=== PATIENT | female | born 1970 | race Two or more races ===

== ENCOUNTER 2020-10-17 22:29 | Emergency (ER) | payer MEDICAID, SELFPAY ==
--- NOTE | ~2020-10-17 | US_ITS ---
EXAMINATION: US VENOUS ULTRASOUND WITH DOPPLER LOWER EXTREMITY, BILATERAL CLINICAL INFORMATION: Swelling, rule out DVT COMPARISON: None TECHNIQUE: Ultrasound of the deep veins is performed from the hip to the calf with compression sonography and color and pulse Doppler assessment. Spectral analysis with color-flow imaging is performed. FINDINGS: RIGHT: There is normal venous compression and respiratory variation and augmented flow. The visualized common femoral vein, superficial femoral vein, profunda femoral vein, popliteal vein, and the trifurcation region shows no evidence of deep venous thrombosis. There is no significant popliteal fossa cyst. LEFT: The the left common femoral vein is partially compressible, though there is a region within the vein which does not demonstrate flow; this could reflect sequelae of partial chronic thrombosis. Visualized superficial femoral vein, profunda femoral vein, popliteal vein, and the trifurcation region shows no evidence of deep venous thrombosis. There is no significant popliteal fossa cyst. 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 No DVT demonstrated in the right lower extremity. This critical result was discussed with Dr. Tay on 10/18/2020 1:50 AM, and it was ascertained that the content and urgency of the report was understood at the time of direct communication.
--- NOTE | ~2020-10-17 | CT_ITS ---
EXAMINATION: CT ABDOMEN AND PELVIS WITHOUT CONTRAST CLINICAL INFORMATION: Lower abdominal pain COMPARISON: None TECHNIQUE: Multidetector volumetric imaging was performed from the superior aspect of the liver through the pubic symphysis. Sagittal and coronal reformatted images were obtained on the technologist's workstation. This CT examination was performed using dose optimization techniques as appropriate, variously including the following: *Automated exposure control *Adjustment of mA and/or kV according to patient size (this includes techniques or standardized protocols for targeted exams where dose is matched to indication/reason for exam; i.e. extremities or head) *Use of iterative reconstruction technique DLP: 926 mGy-cm FINDINGS: LUNG BASES: The visualized lung bases are unremarkable. LIVER, GALLBLADDER, AND BILIARY TREE: The liver is normal in size and shape but demonstrates decreased attenuation when compared with the spleen consistent with hepatic steatosis.. No focal hepatic lesion or biliary ductal dilatation is present. The gallbladder is unremarkable with no evidence of radiopaque gallstones, gallbladder wall thickening, or obvious pericholecystic inflammatory changes. PANCREAS: Unremarkable. SPLEEN: Unremarkable. ADRENAL GLANDS: Unremarkable. RETROPERITONEUM/PERITONEUM: There is a ovoid/oblong shaped retroperitoneal subdiaphragmatic mass present on the left which displaces the left kidney forward measuring 7.3 x 4.3 x 9.5 cm. No air is present in this collection. Suture material appears to be present in the left flank extending toward this region. No free intraperitoneal fluid is present. KIDNEYS AND URETERS: The kidneys are normal in size, shape, and attenuation. No hydronephrosis, hydroureter, or calculi seen. No perinephric stranding. BLADDER: Unremarkable. GASTROINTESTINAL TRACT: The small and large bowel are unremarkable. The appendix is unremarkable. ABDOMINAL WALL: There is been a repair of a ventral hernia but there is still diastases and anterior bulging. No inguinal hernias are seen. LYMPH NODES: No retroperitoneal lymphadenopathy is present. VASCULAR: Unremarkable. PELVIC VISCERA: An anteverted uterus is present. An abnormal adnexal mass or free fluid is not present. OSSEOUS STRUCTURES: Degenerative changes present predominantly at L5-S1. Old sacral fracture may be present. Sclerotic changes at the sacroiliac joints are present. Mild compression fracture of L4 is present. CT/CT abdomen pelvis wo con IMPRESSION: 1. 7.3 x 4.3 x 9.5 cm left retroperitoneal collection as described above. This is of uncertain significance. Differential diagnosis would include an abscess, a chronic seroma, resolving hematoma among other possibilities. 2. Incidental note made of hepatic steatosis, ventral hernia and degenerative changes present in the spine with compression fracture L4 This critical result was discussed with Dr. Tay at 12:30 AM on 10/18/2020 and it was ascertained that the content and urgency of the report was understood at the time of direct communication.
[2020-10-17 22:52] VITALS: BP 107/65; PULSE 89; RESP 18; TEMP 36.9; O2SAT 99; BMI 46.1
--- NOTE | 2020-10-17 23:20 | ECG_ITS ---
Test Reason : LEG SWELLING Blood Pressure : / mmHG Vent. Rate : 080 BPM Atrial Rate : 080 BPM P-R Int : 170 ms QRS Dur : 084 ms QT Int : 432 ms P-R-T Axes : 059 075 051 degrees QTc Int : 498 ms Normal sinus rhythm Prolonged QT Abnormal ECG No previous ECGs available Referred By: Alana Tay Electronically Signed By:EVELIA SESAY MD
--- NOTE | 2020-10-17 23:21 | ED.GENADULT ---
HPI - General Adult General Chief complaint: Extremity Injury, Lower Stated complaint: swollen feet/abd pain Time Seen by Provider: 10/17/20 22:57 Source: patient and family Mode of arrival: ambulatory Limitations: no limitations History of Present Illness MD complaint: LE pain, lower abdominal discomfort Onset (ago): year(s) (chronic LE edema but noted pain for the last few days) Location: abdomen, left, right and lower extremity Radiation: non-radiation Severity: moderate Quality: aching Pain Consistency: constant Relieving factors: none Exacerbating factors: movement Associated symptoms: other (lower abdominal discomfort) Treatments prior to arrival: none Related Data Allergies Allergy/AdvReac Type Severity Reaction Status Date / Time No Known Allergies Allergy Unverified 12/13/19 16:28 [No Known Allergies*] Review of Systems Review of Systems: Constitutional : No Weight loss, No Fever, No Chills, No Fatigue, No Malaise ENT/Mouth : No sore throat, No Rhinorrhea Eyes: No Eye Pain, No Swelling, No Redness Cardiovascular : No Chest Pain, No SOB, No Dyspnea on Exertion, No Orthopnea, pos Edema, No Palpitations Respiratory : No Cough, No Sputum, No Wheezing Gastrointestinal : No Nausea, No Vomiting, No Diarrhea, No Constipation, pos abdominal Pain, No Hematochezia, No Melena Genitourinary : No Dysuria, No Urinary Frequency, No Hematuria, Musculoskeletal : pos joint pain, No Myalgias, No Joint Swelling Skin : No Skin Lesions, No rash Neuro : No Weakness, No Numbness, No Dizziness, No Headache Psych : No Anxiety/Panic, No Depression Heme/Lymph: No Bruising, No Bleeding,No Lymphadenopathy Endocrine : No Polyuria, No Polydipsia All other systems reviewed and are negative [facility] Past Medical History Attestation statement: The following information was validated with the patient. Medical History (Updated 10/18/20 @ 01:33 by Alana Tay DO) Cardiac arrest Cervical cancer DVT (deep venous thrombosis) Lymphedema Social History Social History (Updated 10/17/20 @ 23:28 by Alana Tay DO) Alcohol intake: never Patient Tobacco Use Status: Never used Tobacco Use of substances other than those prescribed or required for medical reasons: No Advance Directives: No Advance Directives Information Provided: No Patient : No Physical Exam Vital Signs: Vital Signs: Last Vital Signs Temp 98.5 F 10/17/20 22:52 Pulse 89 10/17/20 22:52 Resp 18 10/17/20 22:52 BP 107/65 10/17/20 22:52 Pulse Ox 99 10/17/20 22:52 Body Mass Index 46.1 Appearance: Alert. Oriented X3. No acute distress. Eyes: Pupils equal, round and reactive to light. ENT: Pharynx normal. Neck: Normal inspection. Neck supple. CVS: Normal heart rate and rhythm. Pulses normal. Respiratory: No respiratory distress. Breath sounds normal. Abdomen: Soft and very mild suprapubic ttp no rebound or guarding Skin: Skin warm and dry. Normal skin color. Normal skin turgor. Extremities: pitting 1 to 2+ lower extremity edema. Chronic lymphedema - no rash noted Neuro: Oriented X 3. No motor deficit. No sensory deficit. Course Course Course Narrative: retroperitoneal collection on left side ?hematoma vs area of surgery in the past, repeat attempt to get records from [facility] [place] patient has no complaints of pain in this region has no WBC count, H/H is stable no left flank pain doubt abscess, H/H is stable on coumadin with pain x 3 days doubt active hematoma call from Radiology: L CFV - suspicion for partial thrombosis could be chronic already anticoagulated other than pain her swelling is not new - suspect chronic clot Medical Decision Making MDM Narrative Medical decision making narrative: 50 yo female with hx of chronic lymphedema, DVT with what sounds like resulted in a cardiac arrest with prolonged hospital stay, GIB, on coumadin comes in with c/o LE pain nervous about DVT, lower abdominal pain - at this time labs, US to r/o DVT, CT scan for mass, dispo per results and findings Lab Data Result diagrams: 10/18/20 00:22 10/18/20 00:22 Labs: Lab Results 10/18/20 10/18/20 10/18/20 Range/Units 00:22 00:22 00:22 WBC 5.3 (4.8-10.8) X10*3/uL RBC 4.62 (4.20-5.50) X10*6/uL Hgb 12.6 (12.0-16.0) g/dl Hct 39.9 (37-47) % MCV 86.4 (80-98) fL MCH 27.3 (27.0-33.0) pg MCHC 31.6 (31.0-35.0) g/dl RDW 15.0 (11.0-16.0) % Plt Count 231 (160-400) X10*3/uL MPV 9.7 (9.4-12.3) fL Immature Gran % (Auto) 0.2 (0.0-0.4) % Neut % (Auto) 70.9 (45-73) % Lymph % (Auto) 21.9 (20-40) % [place] % (Auto) 5.5 (2-11) % Eos % (Auto) 1.1 (0-4) % Baso % (Auto) 0.4 (0-2) % Lymph # (Auto) 1.2 (1.2-4.9) X10*3/uL [place] # (Auto) 0.3 (0.1-1.2) X10*3/uL Eos # (Auto) 0.1 (0.0-0.4) X10*3/uL Baso # (Auto) 0.0 (0.0-0.2) X10*3/uL Abs Immat Gran (auto) 0.01 (0.00-0.03) X10*3/uL Absolute Neuts (auto) 3.8 (2.0-8.3) X10*3/uL Absolute Nucleated RBC 0.000 (0.0-0.012) X10*3/uL Nucleated RBC % (auto) 0.0 (0.0-0.2) /100WBC PT (9.9-13.0) SEC INR (0.9-1.1) APTT (24.1-38.0) SEC Sodium 139 (135-145) mmol/L Potassium 3.3 (3.3-5.1) mmol/L Chloride 100 (96-108) mmol/L Carbon Dioxide 32 H (22-29) mmol/L Anion Gap 10 L (12-20) BUN 14 (9-16) mg/dL Creatinine 0.85 (0.5-1.4) mg/dL Estim Creat Clear Calc 99.5 Estimated GFR > 60 Random Glucose 127 H (60-115) mg/dL Calcium 9.0 (8.4-10.2) mg/dL Magnesium (1.6-2.6) mg/dL Total Bilirubin (0.0-1.0) mg/dL Direct Bilirubin (0.0-0.5) mg/dL AST (5-31) U/L ALT (0-31) U/L Alkaline Phosphatase (39-117) U/L Troponin I High Sens (<3.5-17.0) ng/L B-Natriuretic Peptide 152 H (<100) pg/mL Total Protein (6.5-8.0) g/dL Albumin (3.5-5.0) g/dL Lipase (8-78) U/L 10/18/20 10/18/20 10/18/20 Range/Units 00:22 00:22 00:22 WBC (4.8-10.8) X10*3/uL RBC (4.20-5.50) X10*6/uL Hgb (12.0-16.0) g/dl Hct (37-47) % MCV (80-98) fL MCH (27.0-33.0) pg MCHC (31.0-35.0) g/dl RDW (11.0-16.0) % Plt Count (160-400) X10*3/uL MPV (9.4-12.3) fL Immature Gran % (Auto) (0.0-0.4) % Neut % (Auto) (45-73) % Lymph % (Auto) (20-40) % [place] % (Auto) (2-11) % Eos % (Auto) (0-4) % Baso % (Auto) (0-2) % Lymph # (Auto) (1.2-4.9) X10*3/uL [place] # (Auto) (0.1-1.2) X10*3/uL Eos # (Auto) (0.0-0.4) X10*3/uL Baso # (Auto) (0.0-0.2) X10*3/uL Abs Immat Gran (auto) (0.00-0.03) X10*3/uL Absolute Neuts (auto) (2.0-8.3) X10*3/uL Absolute Nucleated RBC (0.0-0.012) X10*3/uL Nucleated RBC % (auto) (0.0-0.2) /100WBC PT 29.3 H (9.9-13.0) SEC INR 2.5 H (0.9-1.1) APTT 44.7 H (24.1-38.0) SEC Sodium (135-145) mmol/L Potassium (3.3-5.1) mmol/L Chloride (96-108) mmol/L Carbon Dioxide (22-29) mmol/L Anion Gap (12-20) BUN (9-16) mg/dL Creatinine (0.5-1.4) mg/dL Estim Creat Clear Calc Estimated GFR Random Glucose (60-115) mg/dL Calcium (8.4-10.2) mg/dL Magnesium 2.0 (1.6-2.6) mg/dL Total Bilirubin 0.4 (0.0-1.0) mg/dL Direct Bilirubin 0.2 (0.0-0.5) mg/dL AST 13 (5-31) U/L ALT 8 (0-31) U/L Alkaline Phosphatase 105 (39-117) U/L Troponin I High Sens 4.0 (<3.5-17.0) ng/L B-Natriuretic Peptide (<100) pg/mL Total Protein 6.2 L (6.5-8.0) g/dL Albumin 3.7 (3.5-5.0) g/dL Lipase 25 (8-78) U/L ECG Data Attestation: I personally reviewed and interpreted this ECG as follows: Interpretation: Rate: 80 Rhythm: NSR [place]: normal Normal P waves. Normal MARY. Normal QRS complex. ST T wave : nonspecific, no ANGELA qTC: prolonged prior studies: no acute ischemia The study has been interpreted contemporaneously by me. . Discharge Plan Discharge Clinical Impression: Lymphedema, Chronic leg pain Patient Disposition: Home, Self-Care Instructions: Lymphedema (ED) Additional Instructions: return to ED for any worsening symptoms or concerns 1. 7.3 x 4.3 x 9.5 cm left retroperitoneal (near left kidney) collection as described above. This is of uncertain significance. Differential diagnosis would include an abscess, a chronic seroma, resolving hematoma among other possibilities. unlikely to be abscess or area of bleeding given normal labs and lack of pain at this site. Please call primary care doctor on Tuesday for follow up. INR 2.5 there is a chronic clot in the left upper leg but no new clots, nothing in the right leg Referrals: Physician,Unknown [Primary Care Provider] - 2 days (Tuesday)
[2020-10-18 00:33] LABS: Basophils Percent Auto 0.4 % (0-2); Eosinophils Absolute Auto 0.1 X10*3/uL (0.0-0.4); Eosinophils Percent Auto 1.1 % (0-4); Hematocrit 39.9 % (37-47); Hemoglobin 12.6 g/dl (12.0-16.0); Imm Gran Abs Auto 0.01 X10*3/uL (0.00-0.03); Imm Gran Pct Auto 0.2 % (0.0-0.4); Lymphocytes Absolute Auto 1.2 X10*3/uL (1.2-4.9); Lymphocytes Percent Auto 21.9 % (20-40); MANUAL DIFF FLAG NO; Mean Corpuscular HGB Conc 31.6 g/dl (31.0-35.0); Mean Corpuscular Hemoglobin 27.3 pg (27.0-33.0); Mean Corpuscular Volume 86.4 fL (80-98); Mean Platelet Volume 9.7 fL (9.4-12.3); Monocytes Absolute Auto 0.3 X10*3/uL (0.1-1.2); Monocytes Percent Auto 5.5 % (2-11); Neutrophils Absolute Auto 3.8 X10*3/uL (2.0-8.3); Neutrophils Percent Auto 70.9 % (45-73); Platelet Count 231 X10*3/uL (160-400); Red Blood Count 4.62 X10*6/uL (4.20-5.50); White Blood Count 5.3 X10*3/uL (4.8-10.8)
[2020-10-18 00:39] LABS: INTERNATIONAL NORM RATIO 2.5 (0.9-1.1); Prothrombin Time 29.3 SEC (9.9-13.0)
[2020-10-18 00:42] LABS: Partial Thromboplastin Time 44.7 SEC (24.1-38.0)
[2020-10-18 00:57] LABS: B Type Natriuretic Peptide 152 pg/mL (<100)
[2020-10-18 00:58] LABS: Alanine Aminotransferase 8 U/L (0-31); Albumin Level 3.7 g/dL (3.5-5.0); Alkaline Phosphatase 105 U/L (39-117); Anion Gap 10 (12-20); Aspartate Amino Transferase 13 U/L (5-31); Bilirubin Direct 0.2 mg/dL (0.0-0.5); Bilirubin Total 0.4 mg/dL (0.0-1.0); Blood Urea Nitrogen 14 mg/dL (9-16); Carbon Dioxide 32 mmol/L (22-29); Chloride 100 mmol/L (96-108); Creatinine Clr Calc Pharmacy 99.5; Estimated Glomerular Filt Rate > 60; Glucose Random 127 mg/dL (60-115); Lipase 25 U/L (8-78); Potassium 3.3 mmol/L (3.3-5.1); Sodium 139 mmol/L (135-145); Total Protein 6.2 g/dL (6.5-8.0)
[2020-10-18 02:00] VITALS: BP 95/67; PULSE 67; RESP 15; TEMP 36.9; O2SAT 99
[2020-10-18 02:07] LABS: Glucose Urine UA NEG (NEG); Leukocyte Esterase Urine 1+ (NEG); Nitrite Urine NEG (NEG); UACC Culture Trigger YES; Urine Blood NEG (NEG); Urine Ketones NEG (NEG); Urine Protein NEG (NEG-TRACE)
[2020-10-18 02:08] LABS: Appearance Urine CLEAR; Color Urine YELLOW
[2020-10-18 02:16] LABS: Bacteria Urine 1+ /LPF; RBC Urine 0-2 /HPF (0); Squamous Epithelial Cell Urine 2+ /LPF
[2020-10-18] MEDS: Nitrofurantoin Monohyd/M-Cryst 100 MG CAPSULE PO (03:18)
== END 2020-10-18 03:25 | disposition home or self-care (01) ==
PROVIDERS: Emergency Provider Emergency Medicine
DX: M79.604 Pain in right leg (principal); R60.0 Localized edema; R10.9 Unspecified abdominal pain; R59.1 Generalized enlarged lymph nodes; R06.02 Shortness of breath; Z79.899 Other long term (current) drug therapy
CPT/HCPCS: 36415; 74176; 80048; 80076; 81001; 81003; 83690; 83735; 83880; 84484; 85025; 85610; 85730; 87086; 87147; 93005; 93970; 99284

== ENCOUNTER 2020-10-31 20:36 | Emergency (ER) | payer MEDICAID, SELFPAY ==
--- NOTE | ~2020-10-31 | XR_ITS ---
EXAMINATION: XR KNEE, LEFT CLINICAL INFORMATION: Fall. COMPARISON: X-ray of the left knee March 2019 TECHNIQUE: Four views of the left knee. FINDINGS: There is osteoarthritis involving all compartments with marginal osteophytes and joint space narrowing. Probable loose body in the anterior recess. Small effusion XR/XR knee LT 2V IMPRESSION: Osteoarthritis of the left knee unchanged. Probable loose body No fracture or acute abnormality. Small effusion
--- NOTE | ~2020-10-31 | XR_ITS ---
EXAMINATION: Pelvis left hip and pelvis CLINICAL INFORMATION: Fall COMPARISON: CT scan of the abdomen and pelvis September 2020 TECHNIQUE: Two views of the left hip. AP view of the pelvis FINDINGS: Left hip: The femoral acetabular joint space is normal. There is no fracture or bone lesion. Surrounding soft tissues are normal. Pelvis: Postsurgical changes in the lower abdomen. Bones joints and soft tissues of the pelvis otherwise normal. Spondylosis of the partially visualized lumbar sacral spine XR/XR hip LT min 2V IMPRESSION: Normal left hip. No acute abnormality the pelvis no fracture
[2020-10-31 21:53] VITALS: BP 118/61; PULSE 57; RESP 16; TEMP 36.6; O2SAT 100; BMI 43.7
--- NOTE | 2020-10-31 23:14 | ED_ITS ---
HPI - Fall General Chief Complaint: Fall Stated Complaint: pain in legs Time Seen by Provider: 10/31/20 22:59 Source: patient Mode of arrival: wheelchair Limitations: no limitations History of Present Illness HPI Narrative: Patient comes to emergency room complaining of left knee pain and left hip pain. Patient states 2 days ago she fell of the bed while she was trying to get up to answer the door. Patient did not hit her head, did not lose consciousness. Patient is on Coumadin. Patient has been able to bear weight, but hurts doing so. Otherwise she has no other injuries. Related Data Previous Rx's Medication Instructions Recorded nitrofurantoin 100 mg PO Q12H 7 Days #14 cap 10/18/20 monohydrate/macrocrystals 100 mg capsule (Macrobid) tramadol 50 mg tablet 50 mg PO TID PRN #10 tab 10/31/20 Allergies Allergy/AdvReac Type Severity Reaction Status Date / Time No Known Allergies Allergy Verified 10/31/20 22:01 [No Known Allergies*] Review of Systems Review of Systems: Constitutional : No Weight loss, No Fever, No Chills, No Night Sweats, No Fatigue, No Malaise ENT/Mouth : No Hearing loss, No Ear Pain, No Nasal Congestion, No Sinus Pain, No Hoarseness, No sore throat, No Rhinorrhea, No Swallowing Difficulty Eyes: No Eye Pain, No Swelling, No Redness, No Foreign Body, No Discharge, No Vision Changes Cardiovascular : No Chest Pain, No SOB, No Dyspnea on Exertion, No Orthopnea, No Edema, No Palpitations Respiratory : No Cough, No Sputum, No Wheezing, No Smoke Exposure, No Dyspnea Gastrointestinal : No Nausea, No Vomiting, No Diarrhea, No Constipation, No abdominal Pain, No Hematochezia, No Melena Genitourinary : no irregular bleeding, No Dysuria, No Urinary Frequency, No Hematuria, No Urinary Incontinence, No Urgency, No Flank Pain, No Urinary Flow Changes, No Hesitancy Musculoskeletal : Complaining of left hip pain and left knee pain Skin : No Skin Lesions, No rash Neuro : No Weakness, No Numbness, No Paresthesias, No Loss of Consciousness, No Dizziness, No Headache Psych : No Anxiety/Panic, No Depression, No SI/HI/AH/VH, No Social Issues, Heme/Lymph: No Bruising, No Bleeding,No Lymphadenopathy Endocrine : No Polyuria, No Polydipsia, No Temperature Intolerance [facility] Past Medical History Medical History Cardiac arrest Cervical cancer DVT (deep venous thrombosis) Lymphedema Social History Social History (Updated 10/17/20 @ 23:28 by Alana Tay DO) Alcohol intake: never Patient Tobacco Use Status: Never used Tobacco Advance Directives: No Physical Exam Vital Signs: Vital Signs: Last Vital Signs Temp 97.8 F 10/31/20 21:53 Pulse 57 10/31/20 21:53 Resp 16 10/31/20 21:53 BP 118/61 10/31/20 21:53 Pulse Ox 100 10/31/20 21:53 Body Mass Index 43.7 Const: Other: Appearance: Alert. Oriented X3. No acute distress. Eyes: Pupils equal, round and reactive to light. ENT: Pharynx normal. Neck: Normal inspection. Neck supple. No lymph nodes noted. No crepitus CVS: Normal heart rate and rhythm. Pulses normal. Normal S1 and S2 Respiratory: No respiratory distress. Breath sounds normal. No Wheezing. No rales Abdomen: Soft and nontender. No rigidity. No distention. good BS x4 Skin: Skin warm and dry. Normal skin color. Normal skin turgor. Extremities: Chronic bilateral lymphedema, patient able to flex and extend both knees and hips, no obvious effusion in the left knee, no erythema Neuro: Oriented X 3. No motor deficit. No sensory deficit. Moving all extermities. No slurred speech. Course Course Course Narrative: I discussed the physical exam and x-rays with the patient and her son. Patient likely has a contusion. Patient instructed to follow-up with her primary care physician. Patient was offered crutches, patient declined. Patient accepted 1 dose of tramadol. Discussed with the patient and take ibuprofen/NSAID. Only Tylenol and tramadol MDM - Fall Imaging Data Hip x-ray: Radiologist's impression: There is osteoarthritis involving all compartments with marginal osteophytes and joint space narrowing. Probable loose body in the anterior recess. Small effusion XR/XR knee LT 2V IMPRESSION: Osteoarthritis of the left knee unchanged. Probable loose body ? No fracture or acute abnormality. Small effusion Left knee x-ray: Radiologist's impression: COMPARISON: CT scan of the abdomen and pelvis September 2020 TECHNIQUE: Two views of the left hip. AP view of the pelvis FINDINGS: Left hip: The femoral acetabular joint space is normal. There is no fracture or bone lesion. Surrounding soft tissues are normal. Pelvis: Postsurgical changes in the lower abdomen. Bones joints and soft tissues of the pelvis otherwise normal. Spondylosis of the partially visualized lumbar sacral spine XR/XR hip LT min 2V IMPRESSION: Normal left hip. ? No acute abnormality the pelvis no fracture Discharge Plan Discharge Clinical Impression: Multiple contusions Patient Disposition: Home, Self-Care Instructions: Knee Pain (ED), Hip Contusion (ED) Additional Instructions: Please follow-up with your primary care physician tomorrow. If you have any worsening or new symptoms, please return to the emergency room or call 911 Prescriptions: New tramadol 50 mg tablet 50 mg PO TID PRN (Reason: pain) Qty: 10 RF: 0 No Action nitrofurantoin monohyd/m-cryst [Macrobid] 100 mg capsule 100 mg PO Q12H 7 Days Qty: 14 RF: 0
[2020-10-31] MEDS: traMADoL HCL 50 MG TABLET PO (23:58)
== END 2020-11-01 | disposition home or self-care (01) ==
PROVIDERS: Emergency Provider Emergency Medicine; PCP Pediatrics
DX: S70.02XA Contusion of left hip, initial encounter (principal); M25.562 Pain in left knee; Z86.718 Personal history of other venous thrombosis and embolism; Z79.01 Long term (current) use of anticoagulants; W06.XXXA Fall from bed, initial encounter; Y93.9 Activity, unspecified; Y92.9 Unspecified place or not applicable; Y99.9 Unspecified external cause status
CPT/HCPCS: 73502; 73560; 99283

== ENCOUNTER 2021-08-30 17:16 | Emergency (ER) | payer MEDICAID, SELFPAY ==
--- NOTE | 2021-08-30 | ECG_ITS ---
Test Reason : CP Blood Pressure : / mmHG Vent. Rate : 061 BPM Atrial Rate : 061 BPM P-R Int : 176 ms QRS Dur : 090 ms QT Int : 484 ms P-R-T Axes : 050 076 049 degrees QTc Int : 487 ms Normal sinus rhythm Cannot rule out Anterior infarct , age undetermined Abnormal ECG When compared with ECG of 17-OCT-2020 23:58, No significant change was found Referred By: Generic ED Physician Electronically Signed By:MARS MATHIAS
--- NOTE | ~2021-08-30 | US_ITS ---
EXAMINATION: US VENOUS ULTRASOUND WITH DOPPLER LOWER EXTREMITY, LEFT CLINICAL INFORMATION: Left calf pain COMPARISON: 10/18/2020 TECHNIQUE: Ultrasound of the deep veins is performed from the hip to the calf with compression sonography and color and pulse Doppler assessment. Spectral analysis with color-flow imaging is performed. FINDINGS: There is noncompressible mural thrombus which is not flow limiting in the common femoral vein, similar in appearance to 10/18/2020 consistent with chronic disease. The deep venous system is otherwise normal with normal venous compression and respiratory variation and augmented flow. The visualized superficial femoral vein, profunda femoral vein, popliteal vein, and the trifurcation region shows no evidence of deep venous thrombosis. The peroneal veins were not seen although they were seen at the time of the prior study. This is probably secondary to the patient's body habitus. There is no significant popliteal fossa cyst. 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 No evidence of acute DVT..
[2021-08-30 17:21] VITALS: BP 116/62; PULSE 70; RESP 18; TEMP 36.8; O2SAT 99; BMI 45.3
--- NOTE | 2021-08-30 17:41 | ED_ITS ---
HPI - Chest Pain General Chief Complaint: Chest Pain Stated Complaint: chest pain, swelling Time Seen by Provider: 08/30/21 17:41 Source: patient and family Mode of arrival: ambulatory Limitations: no limitations History of Present Illness HPI narrative: Patient has history of chronic lymphedema comes here for increased leg swelling specially on the left side for last few weeks also with complaining of chest pressure feeling for last 2 weeks off and on lasting for few minutes patient does have history of DVT in left leg and is on Coumadin for last 1 year denies any shortness of breath no fever no chills Related Data Previous Rx's Medication Instructions Recorded nitrofurantoin 100 mg PO Q12H 7 Days #14 cap 10/18/20 monohydrate/macrocrystals 100 mg capsule (Macrobid) tramadol 50 mg tablet 50 mg PO TID PRN #10 tab 10/31/20 cephalexin 500 mg capsule 500 mg PO QID 10 Days #40 cap 08/30/21 doxycycline hyclate 100 mg tablet 100 mg PO BID #20 tab 08/30/21 Allergies Allergy/AdvReac Type Severity Reaction Status Date / Time No Known Allergies Allergy Verified 08/30/21 17:21 [No Known Allergies*] Review of Systems Review of Systems: Yes all other systems are reviewed and are negative PMFSH Past Medical History Medical History Cardiac arrest Cervical cancer DVT (deep venous thrombosis) Lymphedema Social History Social History Alcohol intake: never Patient Tobacco Use Status: Never used Tobacco Advance Directives: No Advance Directives Information Provided: No Physical Exam Vital Signs: Vital Signs: Last Vital Signs Temp 98.2 F 08/30/21 17:21 Pulse 54 08/30/21 21:31 Resp 22 H 08/30/21 21:31 BP 108/57 L 08/30/21 21:31 Pulse Ox 99 08/30/21 21:31 BMI result Body Mass Index 45.3 Appearance: Alert. Oriented X3. No acute distress. Eyes: No pallor ENT: Pharynx normal. Oral Mucosa moist Neck: Normal inspection. Neck supple. CVS: Normal heart rate and rhythm. Pulses normal. Respiratory: No respiratory distress. Equal air entry bilateral, no wheezing/rales/rhonchi Abdomen: Soft and nontender. Bowel sounds are present, no mass palpable, no CVA tenderness Skin: Skin warm and dry. Normal skin color. Normal skin turgor. Extremities: Nonpitting lymphedema bilateral leg left leg with warmth and slight redness no calf tenderness Neuro: Oriented X 3. No motor deficit. MDM - Chest Pain MDM Narrative Medical decision making narrative: Patient was slight cellulitis of left leg venous Doppler was done which was negative for any acute blood clot showed or a DVT in the left leg. Will discharge patient home on doxycycline and Keflex Lab Data Attestation: I reviewed the patient's lab results. Result diagrams: 08/30/21 18:37 08/30/21 19:51 Labs: Lab Results 08/30/21 08/30/21 08/30/21 Range/Units 18:37 19:51 19:51 WBC 4.4 L (4.8-10.8) X10*3/uL RBC 4.96 (4.20-5.50) X10*6/uL Hgb 13.8 (12.0-16.0) g/dl Hct 42.6 (37.0-47.0) % MCV 85.9 (80.0-98.0) fL MCH 27.8 (27.0-33.0) pg MCHC 32.4 (31.0-35.0) g/dl RDW 14.1 (11.0-16.0) % Plt Count 227 (160-400) X10*3/uL MPV 10.6 (9.4-12.3) fL Immature Gran % (Auto) 0.2 (0.0-0.4) % Neut % (Auto) 65.3 (45-73) % Lymph % (Auto) 27.2 (20-40) % [place] % (Auto) 5.7 (2-11) % Eos % (Auto) 1.1 (0-4) % Baso % (Auto) 0.5 (0-2) % Lymph # (Auto) 1.2 (1.2-4.9) X10*3/uL [place] # (Auto) 0.3 (0.1-1.2) X10*3/uL Eos # (Auto) 0.1 (0.0-0.4) X10*3/uL Baso # (Auto) 0.0 (0.0-0.2) X10*3/uL Abs Immat Gran (auto) 0.01 (0.00-0.03) X10*3/uL Absolute Neuts (auto) 2.9 (2.0-8.3) x10*3/uL Absolute Nucleated RBC 0.000 (0.0-0.012) X10*3/uL Nucleated RBC % (auto) 0.0 (0.0-0.2) /100WBC PT (9.9-13.0) SEC INR (0.9-1.1) Sodium 142 (135-145) mmol/L Potassium 3.8 (3.3-5.1) mmol/L Chloride 103 (96-108) mmol/L Carbon Dioxide 29 (22-29) mmol/L Anion Gap 14 (12-20) BUN 13 (9-16) mg/dL Creatinine 0.83 (0.5-1.4) mg/dL Estim Creat Clear Calc 93.4 Estimated GFR > 60 Random Glucose 83 (60-115) mg/dL Calcium 8.6 (8.4-10.2) mg/dL Total Bilirubin 0.6 (0.0-1.0) mg/dL AST 18 (5-31) U/L ALT 19 (0-31) U/L Alkaline Phosphatase 102 (39-117) U/L Troponin I High Sens < 3.5 (<3.5-17.0) ng/L Total Protein 6.5 (6.5-8.0) g/dL Albumin 4.0 (3.5-5.0) g/dL /08/16 Range/Units 19:51 WBC (4.8-10.8) X10*3/uL RBC (4.20-5.50) X10*6/uL Hgb (12.0-16.0) g/dl Hct (37.0-47.0) % MCV (80.0-98.0) fL MCH (27.0-33.0) pg MCHC (31.0-35.0) g/dl RDW (11.0-16.0) % Plt Count (160-400) X10*3/uL MPV (9.4-12.3) fL Immature Gran % (Auto) (0.0-0.4) % Neut % (Auto) (45-73) % Lymph % (Auto) (20-40) % [place] % (Auto) (2-11) % Eos % (Auto) (0-4) % Baso % (Auto) (0-2) % Lymph # (Auto) (1.2-4.9) X10*3/uL [place] # (Auto) (0.1-1.2) X10*3/uL Eos # (Auto) (0.0-0.4) X10*3/uL Baso # (Auto) (0.0-0.2) X10*3/uL Abs Immat Gran (auto) (0.00-0.03) X10*3/uL Absolute Neuts (auto) (2.0-8.3) x10*3/uL Absolute Nucleated RBC (0.0-0.012) X10*3/uL Nucleated RBC % (auto) (0.0-0.2) /100WBC PT 25.7 H (9.9-13.0) SEC INR 2.2 H (0.9-1.1) Sodium (135-145) mmol/L Potassium (3.3-5.1) mmol/L Chloride (96-108) mmol/L Carbon Dioxide (22-29) mmol/L Anion Gap (12-20) BUN (9-16) mg/dL Creatinine (0.5-1.4) mg/dL Estim Creat Clear Calc Estimated GFR Random Glucose (60-115) mg/dL Calcium (8.4-10.2) mg/dL Total Bilirubin (0.0-1.0) mg/dL AST (5-31) U/L ALT (0-31) U/L Alkaline Phosphatase (39-117) U/L Troponin I High Sens (<3.5-17.0) ng/L Total Protein (6.5-8.0) g/dL Albumin (3.5-5.0) g/dL ECG Data ECG #1: Attestation: I personally reviewed and interpreted this ECG as follows: Interpretation: Normal sinus rhythm heart rate 61 beats per minute normal interval normal axis no acute ST-T no acute ischemia Discharge Plan Discharge Clinical Impression: Cellulitis of left leg Patient Disposition: Home, Self-Care Instructions: Cellulitis (ED) Additional Instructions: Take antibiotic as prescribed Keep the leg elevated Follow with PCP if not better Prescriptions: New cephalexin 500 mg capsule 500 mg PO QID 10 Days Qty: 40 0RF doxycycline hyclate 100 mg tablet 100 mg PO BID Qty: 20 0RF No Action nitrofurantoin monohyd/m-cryst [Macrobid] 100 mg capsule 100 mg PO Q12H 7 Days Qty: 14 0RF Rx Instructions: must administer with a meal/food tramadol 50 mg tablet 50 mg PO TID PRN (Reason: pain) Qty: 10 0RF Interventions: ED Discharge Assessment Last Done: 08/30/21 23:01 Discharge Date/Time: 08/30/21 23:01 Print Language: Latvian
[2021-08-30 18:41] LABS: MANUAL DIFF FLAG NO
[2021-08-30 18:43] LABS: Basophils Percent Auto 0.5 % (0-2); Eosinophils Absolute Auto 0.1 X10*3/uL (0.0-0.4); Eosinophils Percent Auto 1.1 % (0-4); Hematocrit 42.6 % (37.0-47.0); Hemoglobin 13.8 g/dl (12.0-16.0); Imm Gran Abs Auto 0.01 X10*3/uL (0.00-0.03); Imm Gran Pct Auto 0.2 % (0.0-0.4); Lymphocytes Absolute Auto 1.2 X10*3/uL (1.2-4.9); Lymphocytes Percent Auto 27.2 % (20-40); Mean Corpuscular HGB Conc 32.4 g/dl (31.0-35.0); Mean Corpuscular Hemoglobin 27.8 pg (27.0-33.0); Mean Corpuscular Volume 85.9 fL (80.0-98.0); Mean Platelet Volume 10.6 fL (9.4-12.3); Monocytes Absolute Auto 0.3 X10*3/uL (0.1-1.2); Monocytes Percent Auto 5.7 % (2-11); Neutrophils Absolute Auto 2.9 x10*3/uL (2.0-8.3); Neutrophils Percent Auto 65.3 % (45-73); Platelet Count 227 X10*3/uL (160-400); Red Blood Count 4.96 X10*6/uL (4.20-5.50); Red Cell Distribution Width 14.1 % (11.0-16.0); White Blood Count 4.4 X10*3/uL (4.8-10.8)
[2021-08-30 20:08] LABS: INTERNATIONAL NORM RATIO 2.2 (0.9-1.1); Prothrombin Time 25.7 SEC (9.9-13.0)
[2021-08-30 20:11] LABS: Alanine Aminotransferase 19 U/L (0-31); Alkaline Phosphatase 102 U/L (39-117); Anion Gap 14 (12-20); Aspartate Amino Transferase 18 U/L (5-31); Bilirubin Total 0.6 mg/dL (0.0-1.0); Blood Urea Nitrogen 13 mg/dL (9-16); Calcium 8.6 mg/dL (8.4-10.2); Carbon Dioxide 29 mmol/L (22-29); Chloride 103 mmol/L (96-108); Creatinine Clr Calc Pharmacy 93.4; Estimated Glomerular Filt Rate > 60; Glucose Random 83 mg/dL (60-115); Potassium 3.8 mmol/L (3.3-5.1); Sodium 142 mmol/L (135-145); Total Protein 6.5 g/dL (6.5-8.0)
[2021-08-30 20:17] LABS: Troponin-I High Sensitivity < 3.5 ng/L (<3.5-17.0)
[2021-08-30 21:31] VITALS: BP 108/57; PULSE 54; RESP 22; O2SAT 99
== END 2021-08-30 23:01 | disposition home or self-care (01) ==
PROVIDERS: Emergency Provider Internal Medicine; PCP Pediatrics
DX: L03.116 Cellulitis of left lower limb (principal); R07.89 Other chest pain; Z86.718 Personal history of other venous thrombosis and embolism; Z79.01 Long term (current) use of anticoagulants
CPT/HCPCS: 36415; 80053; 84484; 85025; 85610; 93005; 93971; 96365; 99284; J0690

== ENCOUNTER 2021-11-03 16:46 | Emergency (ER) | payer MEDICAID, SELFPAY ==
--- NOTE | ~2021-11-03 | CT_ITS ---
EXAMINATION: CT ABDOMEN AND PELVIS WITHOUT CONTRAST CLINICAL INFORMATION: Lower abdominal pain. COMPARISON: CT scan abdomen pelvis 10/17/2020 TECHNIQUE: Multidetector volumetric imaging was performed from the superior aspect of the liver through the pubic symphysis. Sagittal and coronal reformatted images were obtained on the technologist's workstation. This CT examination was performed using dose optimization techniques as appropriate, variously including the following: *Automated exposure control *Adjustment of mA and/or kV according to patient size (this includes techniques or standardized protocols for targeted exams where dose is matched to indication/reason for exam; i.e. extremities or head) *Use of iterative reconstruction technique DLP: 1035 mGy-cm FINDINGS: LUNG BASES: The visualized lung bases are unremarkable. LIVER, GALLBLADDER, AND BILIARY TREE: The liver is normal in size, shape, and attenuation. No focal hepatic lesion or biliary ductal dilatation is present. The gallbladder is unremarkable with no evidence of radiopaque gallstones, gallbladder wall thickening, or obvious pericholecystic inflammatory changes. PANCREAS: Unremarkable. SPLEEN: Unremarkable. ADRENAL GLANDS: Unremarkable. KIDNEYS AND URETERS: The kidneys are normal in size, shape, and attenuation. No hydronephrosis, hydroureter, or calculi seen. No perinephric stranding. BLADDER: Unremarkable. GASTROINTESTINAL TRACT: No acute abnormality. There is no bowel wall thickening /edema. There is no bowel obstruction. There is a moderate to large volume of stool in the colon. The appendix is normal . The small bowel loops are unremarkable. The stomach is normal. There is no hiatal hernia. ABDOMINAL WALL: Surgical mesh anterior abdominal wall without recurrent hernia. The previously noted ovoid retroperitoneal subdiaphragmatic lesion at the posterior left abdominal wall has diminished in size since prior study 10/18/2011 . This lesion previously measured 7.3 x 4.3 x 9.5 cm. This currently measures 4.1 x 1.9 x 4.9 cm. Density measurement 10 Hounsfield units consistent with fluid. No surrounding inflammation. There are surgical clips at the inferior margin of this collection. LYMPH NODES: Normal. VASCULAR: Unremarkable. PELVIC VISCERA: Unremarkable. OSSEOUS STRUCTURES: Mild degenerative spondylosis lower lumbar spine. No acute osseous abnormality. CT/CT abdomen pelvis wo con IMPRESSION: 1. No acute abnormality the abdomen or pelvis. Stable mild compression deformity of L4 vertebrae. 2. Decrease in size of the retroperitoneal collection the posterior left abdominal wall adjacent to surgical clips. This is likely resolving seroma. Fleischner guidelines were followed.
[2021-11-03 17:50] VITALS: BP 118/72; PULSE 71; RESP 18; TEMP 36.6; O2SAT 99; BMI 46.3
[2021-11-03 18:23] LABS: Appearance Urine CLEAR; Color Urine YELLOW; Glucose Urine UA NEG (NEG); Leukocyte Esterase Urine NEG (NEG); Nitrite Urine NEG (NEG); PH 6.5 (5.0-8.0); Specific Gravity - Urine <= 1.005 (1.005-1.025); UACC Culture Trigger NO; Urine Blood TRACE (NEG); Urine Ketones NEG (NEG); Urine Protein NEG (NEG-TRACE)
[2021-11-03 18:48] LABS: Anion Gap 18 (12-20); Blood Urea Nitrogen 16 mg/dL (9-16); Calcium 8.4 mg/dL (8.4-10.2); Carbon Dioxide 25 mmol/L (22-29); Chloride 100 mmol/L (96-108); Creatinine Clr Calc Pharmacy 71.2; Estimated Glomerular Filt Rate 53; Glucose Random 90 mg/dL (60-115); Potassium 3.9 mmol/L (3.3-5.1); Sodium 139 mmol/L (135-145)
[2021-11-03 18:57] LABS: Mucus Urine TRACE /LPF; Squamous Epithelial Cell Urine 1+ /LPF; WBC Urine 0-2 /HPF (0-4)
[2021-11-03 21:32] VITALS: BP 128/86; PULSE 73; RESP 16; TEMP 36.7; O2SAT 98
[2021-11-03 22:12] VITALS: BP 121/67; PULSE 72; RESP 16; TEMP 37.1; O2SAT 98
--- NOTE | 2021-11-03 22:30 | ED_ITS ---
HPI - Abdominal Pain General Chief Complaint: General Medical Stated Complaint: Low Abd Pain Pain on Urination Time Seen by Provider: 11/03/21 21:56 Source: patient Mode of arrival: ambulatory Limitations: no limitations History of Present Illness HPI narrative: Patient presents emergency department for evaluation of lower abdominal/suprapubic pain. She states this is been ongoing for 6 months. She reported it to her primary care doctor and had blood work done which was reportedly normal. She states that for the past 2 weeks she has been having burning with urination, it is unclear based on her history whether the burning is at the location of her urethra if she is having burning to the suprapubic lower abdominal region. She reports tactile fevers intermittently, has not checked her temperature reporting she does not know how to use a thermometer. She reports 2 instances of abnormal vaginal discharge but is unable to describe it. No vaginal bleeding, states she has not had her menstrual cycle since 2014 after she received chemo and radiation for cervical cancer. Denies shaking chills, sweats, nausea, vomiting, upper abdominal pain, diarrhea, constipation. Related Data Previous Rx's Medication Instructions Recorded nitrofurantoin 100 mg PO Q12H 7 days #14 caps 10/18/20 monohydrate/macrocrystals 100 mg capsule (Macrobid) tramadol 50 mg tablet 50 mg PO TID PRN pain #10 tabs 10/31/20 cephalexin 500 mg capsule 500 mg PO QID 10 days #40 caps 08/30/21 doxycycline hyclate 100 mg tablet 100 mg PO BID #20 tabs 08/30/21 cefuroxime axetil 250 mg tablet 250 mg PO Q12H 7 days #14 tabs 11/04/21 Allergies Allergy/AdvReac Type Severity Reaction Status Date / Time No Known Allergies Allergy Verified 11/03/21 17:49 [No Known Allergies*] Review of Systems Review of Systems Constitutional : No Weight loss, positive tactile Fever, No Chills ENT/Mouth :? No sore throat, No Rhinorrhea Eyes: No Swelling, No Redness Cardiovascular : No Chest Pain, No SOB, No Edema Respiratory : No Cough, No Sputum, No Wheezing Gastrointestinal : No Nausea, no Vomiting, no Diarrhea, positive abdominal pain, No Hematochezia, No Melena Genitourinary : Positive Dysuria, No Urinary Frequency, No Hematuria, No Urgency? Musculoskeletal : No joint pain, No Myalgias, No Joint Swelling Skin : No Skin Lesions, No rash Neuro : No Weakness, No Numbness, No Dizziness, No Headache Psych : No Anxiety/Panic, No Depression Heme/Lymph: No Bruising, No Lymphadenopathy Endocrine : No Polyuria, No Polydipsia Yes all other systems are reviewed and are negative [facility] Past Medical History Attestation statement: The following information was validated with the patient. Source: old records reviewed Medical History Cardiac arrest Cervical cancer DVT (deep venous thrombosis) Lymphedema Social History Social History Alcohol intake: never Patient Tobacco Use Status: Never used Tobacco Advance Directives: No Advance Directives Information Provided: No Physical Exam ED Vital Signs: Vital Signs - 24 hr 11/03/21 17:50 11/03/21 21:32 11/03/21 22:12 Temperature 97.9 F 98.1 F 98.7 F Pulse Rate 71 73 72 Respiratory Rate 18 16 16 Blood Pressure 118/72 128/86 121/67 Pulse Oximetry 99 98 98 Oxygen Delivery Method Room Air Room Air Room Air BMI result Body Mass Index 46.3 Appearance: Alert.?Oriented to person, place and time. No acute distress.?Normal affect. Eyes: Pupils equal, round and reactive to light.? ENT: Pharynx normal.?? Neck: Normal inspection.? Neck supple.?? CVS: Heart sounds normal. Normal heart rate and rhythm.? Pulses normal.?? Respiratory: No respiratory distress.? Lung sounds clear to auscultation bilaterally?? Abdomen: Soft and non-tender. Normoactive bowel sounds. No pulsatile mass.?? Skin: Skin warm and dry.? Normal skin color.? Extremities: No lower extremity edema.? Neuro: Moves all extremities spontaneously. Sensation intact bilaterally. No motor deficits Ambulates with normal steady gait. Course Course Course Narrative: Patient is a 51-year-old female with a past medical history of cardiac arrest, pulmonary embolism, DVT, cervical cancer, lymphedema who presents emergency department for evaluation of abdominal pain. Pain is ongoing x6 months, worsening symptoms over the past 2 weeks. Abdominal exam is benign. She is overall well appearing, vital signs are stable, afebrile no tachycardia. Will obtain CBC, CMP, urinalysis, urine , PT INR. In addition will obtain CT of the abdomen and pelvis to exclude intra-abdominal pathology. Negative Rovsing sign, obturator sign, psoas sign not consistent with appendicitis no tejas ound tenderness. Not consistent with diverticulitis. Reevaluation(s) Reevaluation #1: CBC and CMP are unremarkable. Urinalysis reveals 5-9 RBC, microscopic hematuria, no signs of infection. INR 2.5. CT of the abdomen and pelvis reveals no acute abnormalities. Decreasing size of retroperitoneal collection in the posterior left abdominal wall, likely a resolving seroma. Given she is reporting dysuria, will treat for urinary tract infection, culture is pending. Advised outpatient follow-up with primary care provider within 3 days. Reviewed worsen signs and symptoms to return back to the emergency department for. All questions were answered, and patient was discharged home in stable condition. She is ambulatory out of the emergency department. MDM - Abdominal Pain Medical Records Attestation: I reviewed the patient's medical records. Lab Data Attestation: I reviewed the patient's lab results. Result diagrams: 11/03/21 22:28 11/03/21 18:10 Labs: Lab Results 11/03/21 11/03/21 11/03/21 Range/Units 18:10 18:10 22:28 WBC 5.4 (4.8-10.8) X10*3/uL RBC 5.03 (4.20-5.50) X10*6/uL Hgb 13.8 (12.0-16.0) g/dl Hct 43.1 (37.0-47.0) % MCV 85.7 (80.0-98.0) fL MCH 27.4 (27.0-33.0) pg MCHC 32.0 (31.0-35.0) g/dl RDW 15.0 (11.0-16.0) % Plt Count 226 (160-400) X10*3/uL MPV 10.1 (9.4-12.3) fL Immature Gran % (Auto) 0.4 (0.0-0.4) % Neut % (Auto) 65.9 (45-73) % Lymph % (Auto) 25.0 (20-40) % [place] % (Auto) 7.0 (2-11) % Eos % (Auto) 1.3 (0-4) % Baso % (Auto) 0.4 (0-2) % Lymph # (Auto) 1.4 (1.2-4.9) X10*3/uL [place] # (Auto) 0.4 (0.1-1.2) X10*3/uL Eos # (Auto) 0.1 (0.0-0.4) X10*3/uL Baso # (Auto) 0.0 (0.0-0.2) X10*3/uL Abs Immat Gran (auto) 0.02 (0.00-0.03) X10*3/uL Absolute Neuts (auto) 3.6 (2.0-8.3) x10*3/uL Absolute Nucleated RBC 0.000 (0.0-0.012) X10*3/uL Nucleated RBC % (auto) 0.0 (0.0-0.2) /100WBC PT (10.0-13.1) SEC INR (0.9-1.1) Sodium 139 (135-145) mmol/L Potassium 3.9 (3.3-5.1) mmol/L Chloride 100 (96-108) mmol/L Carbon Dioxide 25 (22-29) mmol/L Anion Gap 18 (12-20) BUN 16 (9-16) mg/dL Creatinine 1.09 (0.5-1.4) mg/dL Estim Creat Clear Calc 71.2 Estimated GFR 53 Random Glucose 90 (60-115) mg/dL Calcium 8.4 (8.4-10.2) mg/dL Total Bilirubin (0.0-1.0) mg/dL Direct Bilirubin (0.0-0.5) mg/dL AST (5-31) U/L ALT (0-31) U/L Alkaline Phosphatase (39-117) U/L Total Protein (6.5-8.0) g/dL Albumin (3.5-5.0) g/dL Lipase (8-78) U/L Beta HCG, Quant < 2 mIU/mL Urine Color YELLOW Urine Appearance CLEAR Urine pH 6.5 (5.0-8.0) Ur Specific [place] <= 1.005 (1.005-1.025) Urine Protein NEG (NEG-TRACE) MG/DL Urine Glucose (UA) NEG (NEG) MG/DL Urine Ketones NEG (NEG) MG/DL Urine Blood TRACE (NEG) Urine Nitrite NEG (NEG) Ur Leukocyte Esterase NEG (NEG) Urine RBC 5-9 H (0) /HPF Urine WBC 0-2 (0-4) /HPF Ur Squamous Epith Cells 1+ /LPF Urine Bacteria NONE /LPF Urine Mucus TRACE /LPF 11/03/21 11/03/21 Range/Units 22:28 23:50 WBC (4.8-10.8) X10*3/uL RBC (4.20-5.50) X10*6/uL Hgb (12.0-16.0) g/dl Hct (37.0-47.0) % MCV (80.0-98.0) fL MCH (27.0-33.0) pg MCHC (31.0-35.0) g/dl RDW (11.0-16.0) % Plt Count (160-400) X10*3/uL MPV (9.4-12.3) fL Immature Gran % (Auto) (0.0-0.4) % Neut % (Auto) (45-73) % Lymph % (Auto) (20-40) % [place] % (Auto) (2-11) % Eos % (Auto) (0-4) % Baso % (Auto) (0-2) % Lymph # (Auto) (1.2-4.9) X10*3/uL [place] # (Auto) (0.1-1.2) X10*3/uL Eos # (Auto) (0.0-0.4) X10*3/uL Baso # (Auto) (0.0-0.2) X10*3/uL Abs Immat Gran (auto) (0.00-0.03) X10*3/uL Absolute Neuts (auto) (2.0-8.3) x10*3/uL Absolute Nucleated RBC (0.0-0.012) X10*3/uL Nucleated RBC % (auto) (0.0-0.2) /100WBC PT 30.0 H (10.0-13.1) SEC INR 2.5 H (0.9-1.1) Sodium (135-145) mmol/L Potassium (3.3-5.1) mmol/L Chloride (96-108) mmol/L Carbon Dioxide (22-29) mmol/L Anion Gap (12-20) BUN (9-16) mg/dL Creatinine (0.5-1.4) mg/dL Estim Creat Clear Calc Estimated GFR Random Glucose (60-115) mg/dL Calcium (8.4-10.2) mg/dL Total Bilirubin 0.8 (0.0-1.0) mg/dL Direct Bilirubin 0.3 (0.0-0.5) mg/dL AST 14 (5-31) U/L ALT 13 (0-31) U/L Alkaline Phosphatase 115 (39-117) U/L Total Protein 6.9 (6.5-8.0) g/dL Albumin 4.3 (3.5-5.0) g/dL Lipase 17 (8-78) U/L Beta HCG, Quant mIU/mL Urine Color Urine Appearance Urine pH (5.0-8.0) Ur Specific [place] (1.005-1.025) Urine Protein (NEG-TRACE) MG/DL Urine Glucose (UA) (NEG) MG/DL Urine Ketones (NEG) MG/DL Urine Blood (NEG) Urine Nitrite (NEG) Ur Leukocyte Esterase (NEG) Urine RBC (0) /HPF Urine WBC (0-4) /HPF Ur Squamous Epith Cells /LPF Urine Bacteria /LPF Urine Mucus /LPF Imaging Data CT scan - abdomen: Radiologist's impression: CT/CT abdomen pelvis wo con IMPRESSION: ? 1. No acute abnormality the abdomen or pelvis. Stable mild compression deformity of L4 vertebrae. 2. Decrease in size of the retroperitoneal collection the posterior left abdominal wall adjacent to surgical clips. This is likely resolving seroma. Discharge Plan Discharge Clinical Impression: Abdominal pain Patient Disposition: Home, Self-Care Instructions: Abdominal Pain (ED) Additional Instructions: Your blood work today was normal. Your INR was 2.5. As we discussed, your urine sample does not show any obvious sign of infection, there is some blood noted in your urine, however given your having burning with urination we will treat this as a urinary tract infection, and send a urine culture to the lab to check for bacterial growth which can take up to [address] scan of your abdomen shows no acute abnormality, no explanation for your pain. Please contact your primary care provider and arrange for a follow-up visit within 1-3 days for further evaluation. Return to emergency department for any new or worsening symptoms or concerns. Bragg an?lisis de jayy hoy fue normal. Bragg INR fue 2.5. Jose F discutimos, bragg muestra de orina no muestra brenton?n signo obvio de infecci?n, hay algo de jayy en bragg orina, sin embargo, dado que tiene ardor al orinar, trataremos esto jose f jesus infecci?n del tracto urinario y enviaremos un cultivo de orina al laboratorio. para comprobar si hay crecimiento bacteriano, lo que puede tardar hasta 2 d?as. Esta tomograf?a computarizada de bragg abdomen no muestra ninguna anormalidad aguda, ninguna explicaci?n para bragg dolor. Comun?quese con bragg proveedor de atenci?n primaria y programe jesus visita de seguimiento dentro de 1 a 3 d?as para jesus evaluaci?n adicional. Regrese al departamento de emergencias por cualquier s?ntoma o inquietud nueva o que empeore. Prescriptions: New cefuroxime axetil 250 mg tablet 250 mg PO Q12H 7 Days Qty: 14 0RF No Action nitrofurantoin monohyd/m-cryst [Macrobid] 100 mg capsule 100 mg PO Q12H 7 Days Qty: 14 0RF Rx Instructions: must administer with a meal/food tramadol 50 mg tablet 50 mg PO TID PRN (Reason: pain) Qty: 10 0RF cephalexin 500 mg capsule 500 mg PO QID 10 Days Qty: 40 0RF doxycycline hyclate 100 mg tablet 100 mg PO BID Qty: 20 0RF Print Language: Belarusian
[2021-11-03 22:33] LABS: MANUAL DIFF FLAG NO
[2021-11-03 22:51] LABS: Basophils Percent Auto 0.4 % (0-2); Eosinophils Absolute Auto 0.1 X10*3/uL (0.0-0.4); Eosinophils Percent Auto 1.3 % (0-4); Hematocrit 43.1 % (37.0-47.0); Hemoglobin 13.8 g/dl (12.0-16.0); Imm Gran Abs Auto 0.02 X10*3/uL (0.00-0.03); Imm Gran Pct Auto 0.4 % (0.0-0.4); Lymphocytes Absolute Auto 1.4 X10*3/uL (1.2-4.9); Mean Corpuscular Hemoglobin 27.4 pg (27.0-33.0); Mean Corpuscular Volume 85.7 fL (80.0-98.0); Mean Platelet Volume 10.1 fL (9.4-12.3); Monocytes Absolute Auto 0.4 X10*3/uL (0.1-1.2); Neutrophils Absolute Auto 3.6 x10*3/uL (2.0-8.3); Neutrophils Percent Auto 65.9 % (45-73); Platelet Count 226 X10*3/uL (160-400); Red Blood Count 5.03 X10*6/uL (4.20-5.50); White Blood Count 5.4 X10*3/uL (4.8-10.8)
[2021-11-03 22:53] LABS: Alanine Aminotransferase 13 U/L (0-31); Albumin Level 4.3 g/dL (3.5-5.0); Alkaline Phosphatase 115 U/L (39-117); Aspartate Amino Transferase 14 U/L (5-31); Bilirubin Direct 0.3 mg/dL (0.0-0.5); Bilirubin Total 0.8 mg/dL (0.0-1.0); Lipase 17 U/L (8-78); Total Protein 6.9 g/dL (6.5-8.0)
[2021-11-03 23:13] LABS: HCG Quantitative < 2 mIU/mL
[2021-11-04 00:07] LABS: INTERNATIONAL NORM RATIO 2.5 (0.9-1.1)
[2021-11-04 00:36] VITALS: BP 119/72; PULSE 84; RESP 16; O2SAT 96
== END 2021-11-04 01:13 | disposition home or self-care (01) ==
PROVIDERS: Nurse Practitioner Family; Emergency Provider Emergency Medicine; PCP Pediatrics
DX: R10.30 Lower abdominal pain, unspecified (principal); R31.29 Other microscopic hematuria; Z86.718 Personal history of other venous thrombosis and embolism; Z86.711 Personal history of pulmonary embolism; Z85.41 Personal history of malignant neoplasm of cervix uteri; Z79.01 Long term (current) use of anticoagulants
CPT/HCPCS: 36415; 74176; 80048; 80076; 81001; 83690; 84702; 85025; 85610; 99283; 99284

== ENCOUNTER 2022-12-23 15:20 | Outpatient (REF) | payer MEDICAID, SELFPAY ==
[2022-12-23 17:34] LABS: MANUAL DIFF FLAG NO
[2022-12-23 17:39] LABS: Basophils Percent Auto 0.2 % (0-2); Eosinophils Percent Auto 0.6 % (0-4); Hematocrit 42.5 % (37.0-47.0); Hemoglobin 13.7 g/dl (12.0-16.0); Imm Gran Abs Auto 0.01 X10*3/uL (0.00-0.03); Imm Gran Pct Auto 0.2 % (0.0-0.4); Lymphocytes Percent Auto 20.8 % (20-40); Mean Corpuscular HGB Conc 32.2 g/dl (31.0-35.0); Mean Corpuscular Hemoglobin 28.2 pg (27.0-33.0); Mean Corpuscular Volume 87.6 fL (80.0-98.0); Mean Platelet Volume 11.2 fL (9.4-12.3); Monocytes Absolute Auto 0.3 X10*3/uL (0.1-1.2); Neutrophils Absolute Auto 3.5 x10*3/uL (2.0-8.3); Neutrophils Percent Auto 71.2 % (45-73); Platelet Count 239 X10*3/uL (160-400); Red Blood Count 4.85 X10*6/uL (4.20-5.50); Red Cell Distribution Width 14.8 % (11.0-16.0); White Blood Count 4.9 X10*3/uL (4.8-10.8)
[2022-12-23 17:46] LABS: INTERNATIONAL NORM RATIO 4.8 (0.9-1.1); Prothrombin Time 58.4 SEC (11.1-13.3)
[2022-12-23 17:54] LABS: Estimated Average Glucose 103 mg/dL; Hemoglobin A1c % 5.2 % (<6.0)
[2022-12-23 18:08] LABS: Anion Gap 19 (12-20); Blood Urea Nitrogen 19 mg/dL (9-16); Calcium 9.1 mg/dL (8.4-10.2); Carbon Dioxide 27 mmol/L (22-29); Chloride 95 mmol/L (96-108); Estimated Glomerular Filt Rate 35; Glucose Random 85 mg/dL (60-115); Potassium 3.5 mmol/L (3.3-5.1); Sodium 137 mmol/L (135-145)
[2022-12-23 18:18] LABS: TSH reflex Free T4 0.88 uIU/mL (0.32-4.0); Vitamin D 25-OH Total 51.8 ng/mL (>30)
== END 2022-12-23 15:21 | disposition home or self-care (01) ==
LOC: HO.CHCLDS 15:20
PROVIDERS: Visit Provider Pediatrics
DX: C53.9 Malignant neoplasm of cervix uteri, unspecified (principal); R33.9 Retention of urine, unspecified; N30.40 Irradiation cystitis without hematuria
CPT/HCPCS: 36415; 80048; 82306; 83036; 84443; 85025; 85610; 87086

== ENCOUNTER 2023-01-02 22:22 | Inpatient (IN) | payer MEDICAID, SELFPAY ==
--- NOTE | ~2023-01-02 | CT_ITS ---
EXAMINATION: CT CHEST WITHOUT CONTRAST CLINICAL INFORMATION: Dyspnea. Pleural effusion. Pneumonia. COMPARISON: Previous chest x-ray most recent from earlier the same day TECHNIQUE: Multidetector volumetric CT imaging of the chest was done. Axial MIP volume rendering provided. Sagittal and coronal reformatted images were obtained. This CT examination was performed using dose optimization techniques as appropriate, variously including the following: *Automated exposure control *Adjustment of mA and/or kV according to patient size (this includes techniques or standardized protocols for targeted exams where dose is matched to indication/reason for exam; i.e. extremities or head) *Use of iterative reconstruction technique DLP: 230 mGy-cm FINDINGS: TWENTY ONE DEALER: Elevated right hemidiaphragm. Bilateral multilobar airspace disease. LUNGS: Elevated right hemidiaphragm. There is bilateral multilobar airspace disease and groundglass opacities suggestive of bilateral multifocal pneumonia/pneumonitis. There may be a small calcified 3 mm left lower lobe nodule axial image 516 series 5. MEDIASTINUM: The mediastinum is normal. Normal heart size. No pericardial effusion. No coronary artery calcification. No enlarged hilar or mediastinal lymph nodes. CORONARY ARTERY CALCIFICATION: None visualized on this study. PLEURA: Small right pleural effusion. AXILLA: No lymphadenopathy. UPPER ABDOMEN: Moderate amount of ascites. OSSEOUS STRUCTURES: Degenerative changes of the spine. CT/CT chest wo IV con IMPRESSION: Bilateral multilobar airspace disease suggestive of pneumonia. Small right pleural effusion. Elevated right hemidiaphragm. Ascites. Fleischner guidelines were followed.
--- NOTE | ~2023-01-02 | XR_ITS ---
EXAMINATION: XR CHEST CLINICAL INFORMATION: Hypoxia. COMPARISON: None available. TECHNIQUE: Frontal view of the chest was obtained. FINDINGS: The lungs are hypoexpanded. There is bibasilar airspace disease/consolidation. Left pleural effusion is suspected. Cardiac silhouette is obscured. XR/XR chest 1V IMPRESSION: As above.
--- NOTE | ~2023-01-02 | US_ITS ---
Ultrasound paracentesis History: Ascites. Risks and benefits and possible complications were discussed with the patient and consent form was signed. A safe pocket of ascitic fluid was identified using ultrasound guidance, and the overlying skin was marked. The abdomen prepped and draped in sterile fashion. 1% lidocaine was used as a local anesthetic. Using ultrasound guidance, a 5 fr catheter was placed into the ascitic pocket. 5.0 liters of yellow fluid was removed passively. The catheter was then removed. A few sales and merchandising representative images from before and after the examination were obtained. The procedure was performed by Wily Lucero PA-C and supervised by Dr. Lozada. US/US paracentesis abd w/image Impression: Ultrasound-guided paracentesis as described above. No immediate complications
--- NOTE | ~2023-01-02 | XR_ITS ---
EXAMINATION: XR chest 1V CLINICAL INFORMATION: Hypoxia COMPARISON: Prior chest x-ray 01/07/2023 TECHNIQUE: XR chest 1V Tubes and lines: None Lungs and pleura: Redemonstration of multiple patchy airspace opacification unchanged, bilateral pneumonia. Bilateral subpulmonic pleural effusions. Heart and mediastinum: The mediastinum is within normal limits.. Bones/soft tissue: Skeletal structures included are normal for patient's age. XR/XR chest 1V IMPRESSION: * Redemonstration of bilateral patchy airspace opacification bilateral pneumonia unchanged. * Bilateral subpulmonic pleural effusions.
--- NOTE | ~2023-01-02 | XR_ITS ---
EXAMINATION: XR CHEST CLINICAL INFORMATION: Dyspnea COMPARISON: 01/06/2023 TECHNIQUE: Frontal view of the chest was obtained. FINDINGS: Bilateral patchy opacities appear worsened, although may be partially due to technique. Obscuration of left hemidiaphragm again seen. Heart and mediastinum within normal limits. Nonspecific bowel pattern. Degenerative changes. XR/XR chest 1V IMPRESSION: Suspect persistent, question worsening bilateral pneumonias and left pleural effusion.
--- NOTE | ~2023-01-02 | US_ITS ---
EXAMINATION: US ABDOMEN COMPLETE CLINICAL INFORMATION: Cirrhosis with ascites. COMPARISON: Previous CT of the abdomen and pelvis 01/06/2023. TECHNIQUE: Real-time imaging of the abdominal viscera. Doppler color and grayscale evaluation including waveform spectral analysis of the liver vasculature. FINDINGS: PANCREAS: Not well visualized ABDOMINAL AORTA: Not well visualized INFERIOR VENA CAVA: Visualized portions are normal. LIVER: Heterogeneous liver echotexture. No focal liver lesion. There is no intrahepatic biliary duct dilatation seen. GALLBLADDER: Upper normal-size gallbladder. No gallstones. Normal-appearing gallbladder wall. COMMON BILE DUCT: Normal in caliber measuring 0.2 cm in diameter. RIGHT KIDNEY: Normal. No hydronephrosis. No renal calculi or focal parenchymal lesions. The kidney measures 10 cm in maximum dimension. LEFT KIDNEY: Normal. No hydronephrosis. No renal calculi or focal parenchymal lesions. The kidney measures 11 cm in maximum dimension. SPLEEN: Normal. The spleen measures 9.2 cm in maximum dimension. FREE FLUID: Moderate amount of ascites The extrahepatic main right and left portal veins are patent with appropriate hepatopedal flow. The portal vein at the portal splenic confluence is not well visualized. The right middle and left hepatic veins and IVC are patent with normal waveforms. The main hepatic artery is patent with normal waveform and antegrade flow with normal peak systolic velocity of 70 cm/s. Right left hepatic arteries in the liver not visualized. The splenic vein is patent. US/US duplex arterial venous comp IMPRESSION: Heterogeneous liver echotexture. No focal liver lesion. Moderate amount of ascites. Limited visualization of the portal splenic confluence and right and left hepatic arteries otherwise normal liver Doppler exam.
--- NOTE | ~2023-01-02 | US_ITS ---
EXAMINATION: US ABDOMEN COMPLETE CLINICAL INFORMATION: Cirrhosis with ascites. COMPARISON: Previous CT of the abdomen and pelvis 01/06/2023. TECHNIQUE: Real-time imaging of the abdominal viscera. Doppler color and grayscale evaluation including waveform spectral analysis of the liver vasculature. FINDINGS: PANCREAS: Not well visualized ABDOMINAL AORTA: Not well visualized INFERIOR VENA CAVA: Visualized portions are normal. LIVER: Heterogeneous liver echotexture. No focal liver lesion. There is no intrahepatic biliary duct dilatation seen. GALLBLADDER: Upper normal-size gallbladder. No gallstones. Normal-appearing gallbladder wall. COMMON BILE DUCT: Normal in caliber measuring 0.2 cm in diameter. RIGHT KIDNEY: Normal. No hydronephrosis. No renal calculi or focal parenchymal lesions. The kidney measures 10 cm in maximum dimension. LEFT KIDNEY: Normal. No hydronephrosis. No renal calculi or focal parenchymal lesions. The kidney measures 11 cm in maximum dimension. SPLEEN: Normal. The spleen measures 9.2 cm in maximum dimension. FREE FLUID: Moderate amount of ascites The extrahepatic main right and left portal veins are patent with appropriate hepatopedal flow. The portal vein at the portal splenic confluence is not well visualized. The right middle and left hepatic veins and IVC are patent with normal waveforms. The main hepatic artery is patent with normal waveform and antegrade flow with normal peak systolic velocity of 70 cm/s. Right left hepatic arteries in the liver not visualized. The splenic vein is patent. US/US abdomen complete IMPRESSION: Heterogeneous liver echotexture. No focal liver lesion. Moderate amount of ascites. Limited visualization of the portal splenic confluence and right and left hepatic arteries otherwise normal liver Doppler exam.
[2023-01-02 22:43] VITALS: BP 142/62; PULSE 99; RESP 14; TEMP 37.1; O2SAT 94; BMI 45.0
[2023-01-03] VITALS (12 sets, daily range): BP systolic 110–152; BP diastolic 58–75; PULSE 59–85; RESP 16–34; TEMP 36.4–37.1; O2SAT 95–99
--- NOTE | 2023-01-03 01:10 | ED.ABDPAIN ---
HPI - Abdominal Pain General Chief Complaint: Abdominal Pain Stated Complaint: Abd pain Time Seen by Provider: 01/03/23 00:52 Source: patient, family (Daughter) and prosthetic aide Mode of arrival: ambulatory Limitations: no limitations History of Present Illness HPI narrative: A 52 year female came in for evaluation of pain started 3 days ago. Pain has been constant and worsening today, patient was complaining of nausea with no vomiting, had a loose bowel movement today with no blood, endorses burning sensation with urination, no dysuria, no hematuria. No fever, no chills, no blood in the urine or stool. Sexually not active no vaginal discharge. History of cervical cancer that was treated by chemotherapy and radiation 10 years ago. History of hernia repair. Related Data Previous Rx's Medication Instructions Recorded nitrofurantoin 100 mg PO Q12H 7 days #14 caps 10/18/20 monohydrate/macrocrystals 100 mg capsule (Macrobid) tramadol 50 mg tablet 50 mg PO TID PRN pain #10 tabs 10/31/20 cephalexin 500 mg capsule 500 mg PO QID 10 days #40 caps 08/30/21 doxycycline hyclate 100 mg tablet 100 mg PO BID #20 tabs 08/30/21 cefuroxime axetil 250 mg tablet 250 mg PO Q12H 7 days #14 tabs 11/04/21 Allergies Allergy/AdvReac Type Severity Reaction Status Date / Time No Known Allergies Allergy Verified 11/03/21 17:49 [No Known Allergies*] Review of Systems Review of Systems All other systems are reviewed and are negative Constitutional: Reports as per HPI and Reports no additional constitutional complaints Eyes: Reports as per HPI and Reports no additional eye complaints Reports system reviewed and no additional complaints, except as documented Cardiovascular: Reports as per HPI and Reports no additional cardiovascular complaints Respiratory: Reports as per HPI and Reports no additional respiratory complaints Gastrointestinal: Reports as per HPI and Reports no additional gastrointestinal complaints Genitourinary: Reports no additional female genitourinary complaints Musculoskeletal: Reports no additional musculoskeletal complaints Skin/Breast: Reports system reviewed and no additional complaints, except as docu Psychiatric: Reports no additional psychiatric complaints Endocrine: Reports no additional endocrine complaints Hematologic/Lymphatic: Reports no additional hematologic/lymphatic complaints Allergic/Immunologic: Reports no additional allergic/immunologic complaints Reports system reviewed and no additional complaints, except as documented and Reports Abnormal speech present [facility] Past Medical History Medical History Cervical cancer Lymphedema Cardiac arrest DVT (deep venous thrombosis) Social History Social History Alcohol intake: never Patient Tobacco Use Status: Never used Tobacco Smoked in Last 30 Days: No Use of substances other than those prescribed or required for medical reasons: No Advance Directives: No Advance Directives Information Provided: No Physical Exam ED Vital Signs: Vital Signs - 24 hr 01/02/23 22:43 01/03/23 00:55 01/03/23 02:30 Temperature 98.8 F Pulse Rate 99 75 68 Respiratory Rate 14 16 17 Blood Pressure 142/62 H 131/75 114/63 Pulse Oximetry 94 98 99 Oxygen Delivery Method Room Air Room Air Room Air BMI result Body Mass Index 45.0 Vital signs have been reviewed and appear to be correct. Blood pressure elevated. Heart rate normal. Respiratory rate normal. Temperature normal. Oxygen saturation normal. Appearance: Alert. Oriented X3. No acute distress. Head: Normal external exam. Normocephalic. Atraumatic. No Hendrickson signs noted. No raccoon eyes noted Eyes: PERRLA. EOMI. Conjunctiva and sclera normal. Eyelids normal. ENT: TM's Normal. Pharynx normal. Uvula midline. Moist mucous membranes. No trismus noted. No drooling noted. No muffled voice noted. Neck: Normal inspection. Neck supple. FROM. No adenopathy. Thyroid Normal. No meningeal signs. No neck mass noted. CVS: Normal heart rate and rhythm. Heart sound normal. No murmurs noted. Pulses normal throughout. Respiratory: No respiratory distress. Painless inspiration. Breath sounds normal. No wheezes/rales/rhonchi noted. Chest nontender. No accessory muscle usage noted or decreased air movement noted. Abdomen: Soft and nontender. Bowel sounds normal in all 4 quadrants. No distention noted. No organomegaly noted. No visible injury noted. Rectal exam: Brown stool guaiac negative. Back: No CVA tenderness. Full range of motion noted. Skin: Skin warm and dry. Normal skin color. Normal skin turgor. No rashes/lesions/lacerations noted. Extremities: No lower extremity edema. Extremities exhibit normal range of motion. Extremities nontender. Neuro: Oriented X 3. Cranial nerve exam: II-XII are grossly intact No motor deficit. No sensory deficit. Reflexes normal. Course Course Course Narrative: Acute renal insufficiency, and UTI. No sepsis. Medical Decision Making Differential Diagnosis Differential Diagnoses: The differential diagnosis associated with the presentation includes (Acute colitis, enteritis, diverticulitis, small-bowel obstruction, UTI, electrolyte abnormality, severe anemia.) Admission/Observation Consideration of admission/observation: Escalation of care including admission/observation considered Consult Healthcare Provider Management of the patient was discussed with: Hospitalist (Dr. Zendejas) Lab Data MDM Lab Attestation statement: I reviewed the patient's lab results. 01/03/23 00:33 01/03/23 00:33 Labs: Lab Results 01/03/23 01/03/23 01/03/23 Range/Units 00:33 00:51 01:13 WBC 6.2 (4.8-10.8) X10*3/uL RBC 4.93 (4.20-5.50) X10*6/uL Hgb 13.8 (12.0-16.0) g/dl Hct 41.6 (37.0-47.0) % MCV 84.4 (80.0-98.0) fL MCH 28.0 (27.0-33.0) pg MCHC 33.2 (31.0-35.0) g/dl RDW 14.0 (11.0-16.0) % Plt Count 214 (160-400) X10*3/uL MPV 9.8 (9.4-12.3) fL Immature Gran % (Auto) 0.3 (0.0-0.4) % Neut % (Auto) 73.9 H (45-73) % Lymph % (Auto) 18.2 L (20-40) % [place] % (Auto) 7.1 (2-11) % Eos % (Auto) 0.2 (0-4) % Baso % (Auto) 0.3 (0-2) % Lymph # (Auto) 1.1 L (1.2-4.9) X10*3/uL [place] # (Auto) 0.4 (0.1-1.2) X10*3/uL Eos # (Auto) 0.0 (0.0-0.4) X10*3/uL Baso # (Auto) 0.0 (0.0-0.2) X10*3/uL Abs Immat Gran (auto) 0.02 (0.00-0.03) X10*3/uL Absolute Neuts (auto) 4.6 (2.0-8.3) x10*3/uL Absolute Nucleated RBC 0.000 (0.0-0.012) X10*3/uL Nucleated RBC % (auto) 0.0 (0.0-0.2) /100WBC Sodium 130 L (135-145) mmol/L Potassium 4.3 D (3.3-5.1) mmol/L Chloride 93 L (96-108) mmol/L Carbon Dioxide 21 L (22-29) mmol/L Anion Gap 20 (12-20) BUN 30 H (9-16) mg/dL Creatinine 3.69 H (0.5-1.4) mg/dL Estim Creat Clear Calc 21.3 Estimated GFR 13 Random Glucose 101 (60-115) mg/dL Calcium 9.7 D (8.4-10.2) mg/dL Total Bilirubin 0.9 (0.0-1.0) mg/dL AST 15 (5-31) U/L ALT 13 (0-31) U/L Alkaline Phosphatase 121 H (39-117) U/L Total Protein 7.9 (6.5-8.0) g/dL Albumin 4.6 (3.5-5.0) g/dL Lipase 14 (8-78) U/L Urine Color Yellow Urine Appearance Clear Urine pH 6.0 (5.0-9.0) Ur Specific [place] <= 1.005 (1.005-1.025) Urine Protein Negative (Neg-Trace) mg/dL Urine Glucose (UA) Negative (Negative) mg/dL Urine Ketones Negative (Negative) mg/dL Urine Blood Trace H (Negative) Urine Nitrite Negative (Negative) Ur Leukocyte Esterase Large (3+) H (Negative) Urine RBC 0-2 (0-2) /HPF Urine WBC 21-50 H (0-5) /HPF Ur Squamous Epith Cells 0-2 (0-2) /HPF Urine Bacteria None Seen (None Seen) Hyaline Casts 0-2 (0-2) /LPF Urine Test NEGATIVE (NEGATIVE) Stool Occult Blood NEGATIVE (NEGATIVE) Independent Interpretation I performed an independent interpretation of an: CT Scan (Abdomen and pelvis:Cirrhotic liver with moderate volume ascites. There is mesenteric infiltration possibly mesenteric edema. There are apparent thickened proximal small bowel loops which may be seen with an enteritis. The lack of oral and IV contrast does limit evaluation. Retained stool. ) Radiology Impression Discussion of test interpretation with radiology: I have reviewed the radiologist's reading. Medications Administered Discontinued Medications Generic Name Dose Route Start Last Admin Trade Name Freq PRN Reason Stop Dose Admin Ceftriaxone Sodium 1 gm/ 50 mls @ 100 mls/hr 01/03/23 01:18 01/03/23 02:15 Sodium Chloride IV 01/03/23 01:47 Infused ONCE ONE Infusion Morphine Sulfate 2 mg 01/03/23 03:17 01/03/23 03:28 Morphine Sulfate 2 Mg/Ml Cartridge IVPUSH 01/03/23 03:18 2 mg ONCE ONE Administration Protocol Ondansetron HCl 4 mg 01/03/23 03:17 01/03/23 03:28 Ondansetron Hcl 4 Mg/2 Ml Vial IVPUSH 01/03/23 03:18 4 mg ONCE ONE Administration Discharge Plan Discharge Clinical Impression: Acute kidney insufficiency UTI (urinary tract infection) Qualifiers: Urinary tract infection type: site unspecified Hematuria presence: without hematuria Qualified Code(s): N39.0 - Urinary tract infection, site not specified Patient Disposition: Admitted As Inpatient
--- NOTE | 2023-01-03 01:43 | PC.NURSE ---
iv established. iv abx infusing. pt to ct scan at this time.
--- NOTE | 2023-01-03 04:09 | PC.NURSE ---
pt sleeping; respirations even and unlabored. daughter at bedside. call buckley within reach. awaiting ct scan results.
--- NOTE | 2023-01-03 06:15 | PM.IMHP ---
History of Present Illness Date of Service: 01/03/23 Chief Complaint: abd pain 52F PMH morbid obesity, diet-controlled diabetes, stage IIIB cervical cancer status post radiation chemotherapy complicated by radiation cystitis, extensive lower extremity DVT on Coumadin, schizophrenia, GERD, history of cardiac arrest due to hemorrhagic shock in 2014 presented with abdominal pain. Patient states that her abdominal pain started about 2 days prior to presentation. Social with bloating and abdominal distention, nausea without vomiting, soft stools. Reports subjective fevers, poor p.o. intake. In ED lab significant for acute kidney injury, CT abdomen with cirrhotic liver morphology and moderate volume ascites as well as enteritis. Urine significant for pyuria without bacteriuria. Review of Systems Review of Systems: Yes all other systems are reviewed and are negative [facility] Medical History Cervical cancer Lymphedema Cardiac arrest DVT (deep venous thrombosis) Social History Alcohol intake: never Patient Tobacco Use Status: Never used Tobacco Smoked in Last 30 Days: No Use of substances other than those prescribed or required for medical reasons: No Advance Directives: No Advance Directives Information Provided: No Meds Allergies Allergy/AdvReac Type Severity Reaction Status Date / Time No Known Allergies Allergy Verified 11/03/21 17:49 [No Known Allergies*] Active Medications: Current Medications Ceftriaxone Sodium 1 gm/ (Sodium Chloride) 50 mls @ 100 mls/hr IV Q24H LAUREN Sodium Chloride (Ns) 1,000 mls @ 75 mls/hr IVCONT .[id number] LAUREN Morphine Sulfate (Morphine Sulfate 2 Mg/Ml Cartridge) 2 mg IVPUSH Q4H PRN; Protocol PRN Reason: moderate pain Sodium Chloride (0.9 % Sodium Chloride Flush 3 Ml Syringe) 3 ml IVFLUSH QSHIFT LAUREN Home Medications Medication Instructions Recorded Confirmed Last Taken Type atorvastatin 40 mg tablet 40 mg PO BEDTIME 01/03/23 01/03/23 Unknown History benztropine 0.5 mg tablet 0.5 mg PO BID PRN pt unsure 01/03/23 01/03/23 Unknown History bupropion HCl 200 mg tablet,12 hr 200 mg PO BID depressive disorder 01/03/23 01/03/23 Unknown History sustained-release citalopram 40 mg tablet 40 mg PO QAM depressive disorder 01/03/23 01/03/23 Unknown History furosemide 20 mg tablet mg PO 01/03/23 Unknown History furosemide 40 mg tablet 40 mg PO DAILY 01/03/23 01/03/23 Unknown History hydroxyzine pamoate 25 mg capsule 25 mg PO TID PRN Anxiety 01/03/23 01/03/23 Unknown History loratadine 10 mg tablet 10 mg PO DAILY 01/03/23 01/03/23 Unknown History midodrine 10 mg tablet 10 mg PO TID 01/03/23 01/03/23 Unknown History risperidone microspheres 50 mg/2 1 IM Q2W 01/03/23 Unknown History mL intramuscular susp,ext release (Risperdal Consta) warfarin 3 mg tablet 3 - 6 mg PO DAILY 01/03/23 01/03/23 Unknown History zolpidem 10 mg tablet 10 mg PO BEDTIME PRN Insomnia 01/03/23 01/03/23 Unknown History Physical Exam Vital Signs and Narrative: Vital Signs: Last Vital Signs Temp 98.8 F 01/02/23 22:43 Pulse 68 01/03/23 02:30 Resp 17 01/03/23 02:30 BP 114/63 01/03/23 02:30 Pulse Ox 99 01/03/23 02:30 O2 Del Method Room Air 01/03/23 02:30 BMI result Body Mass Index 45.0 Alert oriented x3, no acute distress, abdomen distended, tender Results Labs 01/03/23 00:33 01/03/23 00:33 Labs: Laboratory Results - last 24 hr 01/03/23 01/03/23 01/03/23 00:33 00:51 01:13 MCV 84.4 MCH 28.0 MCHC 33.2 RDW 14.0 Plt Count 214 MPV 9.8 Immature Gran % (Auto) 0.3 Neut % (Auto) 73.9 H Lymph % (Auto) 18.2 L [place] % (Auto) 7.1 Eos % (Auto) 0.2 Baso % (Auto) 0.3 Lymph # (Auto) 1.1 L [place] # (Auto) 0.4 Eos # (Auto) 0.0 Baso # (Auto) 0.0 Abs Immat Gran (auto) 0.02 Absolute Neuts (auto) 4.6 Absolute Nucleated RBC 0.000 Nucleated RBC % (auto) 0.0 Anion Gap 20 Estim Creat Clear Calc 21.3 Estimated GFR 13 Random Glucose 101 Calcium 9.7 D Total Bilirubin 0.9 AST 15 ALT 13 Alkaline Phosphatase 121 H Total Protein 7.9 Albumin 4.6 Lipase 14 Urine Color Yellow Urine Appearance Clear Urine pH 6.0 Ur Specific [place] <= 1.005 Urine Protein Negative Urine Glucose (UA) Negative Urine Ketones Negative Urine Blood Trace H Urine Nitrite Negative Ur Leukocyte Esterase Large (3+) H Urine RBC 0-2 Urine WBC 21-50 H Ur Squamous Epith Cells 0-2 Urine Bacteria None Seen Hyaline Casts 0-2 Urine Test NEGATIVE Stool Occult Blood NEGATIVE Imaging Radiologist's Impressions: Impressions Abdomen/Pelvis CT 01/03/23 01:58 IMPRESSION: Cirrhotic liver with moderate volume ascites. There is mesenteric infiltration possibly mesenteric edema. There are apparent thickened proximal small bowel loops which may be seen with an enteritis. The lack of oral and IV contrast does limit evaluation. Retained stool. Fleischner guidelines were followed. Assessment and Plan (1) Acute kidney insufficiency: Status: Acute Plan 52F PMH morbid obesity, diet-controlled diabetes, stage IIIB cervical cancer status post radiation chemotherapy complicated by radiation cystitis, extensive lower extremity DVT on Coumadin, schizophrenia, GERD, history of cardiac arrest due to hemorrhagic shock in 2014 presented with abdominal pain found to have acute kidney injury Acute kidney injury Suspect dehydration due to enteritis IV fluids, monitor, nephro eval, hold diuretics CT with cirrhotic morphology and Ascites No previous mention of liver disease Suspect MALDONADO Check viral serologies Diagnostic and therapeutic paracentesis Morbid obesity, diet-controlled diabetes Weight loss recommended Stage IIIB cervical cancer Outpatient follow-up History of lower extremity DVT Holding Coumadin for possible paracentesis, monitor INR Schizophrenia ? On long-term outpatient treatment GERD Loratadine Full code Patient with significant abdominal pain and bloating as well as significant acute kidney injury requiring IV hydration and close monitoring, due to risk factors of morbid obesity, diabetes, schizophrenia patient high risk for further decompensation, therefore, expected require at least 2 midnights inpatient Time Spent With Patient Time: Total time managing care of this patient today ____ minutes. Quality Stroke Does the patient have a stroke diagnosis?: No VTE Prior VTE?: Yes VTE Risk Level:: Medical - moderate - high VTE Device Contraindication: Treatment Not Indicated VTE Drug Contraindication: N/A - Med Ordered
--- NOTE | 2023-01-03 06:57 | PC.NURSE ---
unable to find pump for ivf.
--- NOTE | 2023-01-03 09:34 | PHA.MEDREC ---
Pharmacy Consult ? Medication Reconciliation Pharmacy has completed the medication reconciliation. PATIENT HAS [facility] SERVICES THAT COME THREE TIMES A WEEK ([phone]). PT DESCRIBES HAVING LOW INR ON TUESDAY (1.6) AND THE DOSE WAS INCREASED TO 5MG WITH RECHECK ON TUESDAY. I CALLED THE [facility] AND SPOKE TO MICHAEL. HE DID CONFIRM MOST RECENT DOSE IS 5MG AND BASED ON HISTORY SHE HOVERS AROUND 5-6 MG DAILY. NEXT RISPERDAL SHOT DUE 01/07 MICHELLE
--- NOTE | 2023-01-03 09:36 | HE.PHANOTE ---
RE DAVID SPOKE TO DR LYONS AND DOSE ADJUSTED BUPROPION. ALSO DISCUSSED LOWERING MIDODRINE TO 5MG DUE TO CURRENT RENAL FUNCTION STATUS MICHELLE
--- NOTE | 2023-01-03 10:22 | PC.NURSE ---
radiology is in room to do paracentesis, patient VSS, hooked up to tele monitor with bp q 5 min
--- NOTE | 2023-01-03 11:19 | PC.NURSE ---
Addendum entered by Edwina Reis RN 01/03/23 11:20: 4.1 L taken off via paracentesis Original Note: patient had bedside paracentesis done, tolerated procedure well. VSS. paracentesis site covered with 2x2 and bandage.
--- NOTE | 2023-01-03 13:15 | PM.CNNEP ---
History of Present Illness Reason for Consult Consult date: 01/03/23 Chief Complaint Chief complaint: DAVID History of Present Illness Narrative: Ms. Emilee Celis is a 52-year-old female with past medical history of Type 2 diabetes, stage IIIB cervical cancer status post radiation chemotherapy complicated by radiation cystitis, extensive lower extremity DVT on Coumadin, schizophrenia, GERD, history of cardiac arrest due to hemorrhagic shock in 2014 who presented with abdominal pain. Patient states that her abdominal pain started about 2 days prior to presentation. This is associated with bloating and abdominal distention, nausea without vomiting, soft stools. She also had poor p.o. intake. Review of Systems Review of Systems All other systems are reviewed and are negative Constitutional: Reports as per HPI and Reports no additional constitutional complaints Eyes: Reports as per HPI and Reports no additional eye complaints Reports system reviewed and no additional complaints, except as documented Cardiovascular: Reports as per HPI and Reports no additional cardiovascular complaints Respiratory: Reports as per HPI and Reports no additional respiratory complaints Gastrointestinal: Reports as per HPI and Reports no additional gastrointestinal complaints Genitourinary: Reports no additional female genitourinary complaints Musculoskeletal: Reports no additional musculoskeletal complaints Skin/Breast: Reports system reviewed and no additional complaints, except as docu Psychiatric: Reports no additional psychiatric complaints Endocrine: Reports no additional endocrine complaints Hematologic/Lymphatic: Reports no additional hematologic/lymphatic complaints Allergic/Immunologic: Reports no additional allergic/immunologic complaints Reports system reviewed and no additional complaints, except as documented and Reports Abnormal speech present [facility] Past Medical History Medical History Cervical cancer Lymphedema Cardiac arrest DVT (deep venous thrombosis) Social History Social History Alcohol intake: never Patient Tobacco Use Status: Never used Tobacco Advance Directives Date on File: 01/03/23 Meds Allergies Allergy/AdvReac Type Severity Reaction Status Date / Time No Known Allergies Allergy Verified 11/03/21 17:49 [No Known Allergies*] Active Medications: Current Medications Bupropion HCl (Bupropion Hcl Xl 150 Mg Tab.Er.24h) 150 mg PO DAILY [facility] Last Admin: 01/03/23 09:50 Dose: 150 mg Escitalopram Oxalate (Escitalopram Oxalate 20 Mg Tablet) 20 mg PO DAILY [facility] Last Admin: 01/03/23 09:21 Dose: 20 mg Hydroxyzine HCl (Hydroxyzine Hcl 25 Mg Tablet) 25 mg PO TID PRN PRN Reason: Anxiety Ceftriaxone Sodium 1 gm/ (Sodium Chloride) 50 mls @ 100 mls/hr IV Q24H [facility] Sodium Chloride (Ns) 1,000 mls @ 75 mls/hr IVCONT .[id number] [facility] Last Admin: 01/03/23 07:56 Dose: 75 mls/hr Loratadine (Loratadine 10 Mg Tablet) 10 mg PO DAILY [facility] Last Admin: 01/03/23 09:21 Dose: 10 mg Midodrine (Midodrine Hcl 5 Mg Tablet) 5 mg PO TID@0800,1300,1800 [facility] Last Admin: 01/03/23 13:07 Dose: 5 mg Morphine Sulfate (Morphine Sulfate 2 Mg/Ml Cartridge) 2 mg IVPUSH Q4H PRN; Protocol PRN Reason: moderate pain Last Admin: 01/03/23 07:59 Dose: 2 mg Ondansetron HCl (Ondansetron Hcl 4 Mg/2 Ml Vial) 4 mg IVPUSH Q4H PRN PRN Reason: Nausea and Vomiting Sodium Chloride (0.9 % Sodium Chloride Flush 3 Ml Syringe) 3 ml IVFLUSH QSHIFT [facility] Last Admin: 01/03/23 07:56 Dose: 3 ml Zolpidem Tartrate (Zolpidem Tartrate 5 Mg Tablet) 5 mg PO BEDTIME PRN PRN Reason: Insomnia Home Medications Medication Instructions Recorded Confirmed Last Taken Type acetaminophen 500 mg tablet 500 mg PO Q8H PRN Pain 01/03/23 01/03/23 Unknown History atorvastatin 40 mg tablet 40 mg PO BEDTIME 01/03/23 01/03/23 Unknown History benztropine 0.5 mg tablet 0.5 mg PO BID PRN pt unsure 01/03/23 01/03/23 Unknown History bupropion HCl 200 mg tablet,12 hr 200 mg PO BID depressive disorder 01/03/23 01/03/23 Unknown History sustained-release citalopram 40 mg tablet 40 mg PO QAM depressive disorder 01/03/23 01/03/23 Unknown History furosemide 40 mg tablet 40 mg PO DAILY 01/03/23 01/03/23 Unknown History hydroxyzine pamoate 25 mg capsule 25 mg PO TID PRN Anxiety 01/03/23 01/03/23 Unknown History loratadine 10 mg tablet 10 mg PO DAILY 01/03/23 01/03/23 Unknown History midodrine 10 mg tablet 10 mg PO TID 01/03/23 01/03/23 Unknown History ondansetron HCl 4 mg tablet 4 mg PO Q8H PRN Nausea And Vomiting 01/03/23 01/03/23 Unknown History risperidone microspheres 50 mg/2 50 mg IM Q2W 01/03/23 01/03/23 12/24/22 History mL intramuscular susp,ext release (Risperdal Consta) warfarin 5 mg tablet 5 mg PO DAILY 01/03/23 01/03/23 01/01/23 History zolpidem 10 mg tablet 10 mg PO BEDTIME PRN Insomnia 01/03/23 01/03/23 Unknown History Physical Exam Vital Signs: Last Vital Signs Temp 97.6 F 01/03/23 13:05 Pulse 84 01/03/23 13:05 Resp 16 01/03/23 13:05 BP 110/58 L 01/03/23 13:05 Pulse Ox 99 01/03/23 13:05 O2 Del Method Room Air 01/03/23 13:05 BMI result Body Mass Index 45.0 Const Other: no distress Resp Auscultation: clear to auscultation bilaterally Cardio Rhythm: regular rhythm GI Palpation (GI): Soft to palpation Extrem Other: No edema Results Lab Results 01/03/23 00:33 01/03/23 00:33 Lab results: Chemistry 01/03/23 00:33 Sodium 130 L Potassium 4.3 D Carbon Dioxide 21 L BUN 30 H Creatinine 3.69 H Calcium 9.7 D Hematology 01/03/23 00:33 WBC 6.2 Hgb 13.8 Plt Count 214 Urinalysis 01/03/23 00:51 Urine Color Yellow Urine Appearance Clear Urine pH 6.0 Ur Specific Fowler <= 1.005 Urine Protein Negative Urine Glucose (UA) Negative Urine Ketones Negative Urine Blood Trace H Urine Nitrite Negative Ur Leukocyte Esterase Large (3+) H Urine RBC 0-2 Urine WBC 21-50 H Ur Squamous Epith Cells 0-2 Hyaline Casts 0-2 Assessment and Plan (1) Acute kidney insufficiency: Status: Acute Plan Ms. Emilee Celis is a 52-year-old female with past medical history of Type 2 diabetes, stage IIIB cervical cancer status post radiation chemotherapy complicated by radiation cystitis, extensive lower extremity DVT on Coumadin, schizophrenia, GERD, history of cardiac arrest due to hemorrhagic shock in 2015 who presented with abdominal pain. Course now complicated by severe DAVID. 1. Non-oliguric DAVID In the setting of poor PO intake, GI losses. With history of Cervical Ca, obstructive ruled out by CT. U/A showing hyaline casts. There is no proteinuria to suspect a GN associated with malignancy most c/w pre-renal injury. Plan: - IVF support should be continued - I have added 1 dose of 25% albumin 100mL to defend intravascular space - check Urine Na and Ucr - renal panel dialy. Time Spent With Patient Time: Total time managing care of this patient today ____ minutes. Procedures Date of Service Date of Service: 01/03/23
[2023-01-04 00:22] VITALS: BP 135/73; PULSE 70; RESP 18; TEMP 36.6; O2SAT 94
--- NOTE | 2023-01-04 01:36 | PC.NURSE ---
pt in room 378 says that she hasn't voided since yesterday. pt has a urge to void but is not able to. Pt bladder scanner is reading [address] Evert valdez notified. Dr. Loyd ordered straight cath. Pt was given straight cath and released 600 ml of urine.
[2023-01-04 08:00] VITALS: BP 136/71; PULSE 73; RESP 17; TEMP 36.7; O2SAT 96
--- NOTE | 2023-01-04 15:24 | HO.PM.IMPN ---
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 Abdominal pain improved Review of Systems Denies chest pain Denies shortness of breath Denies nausea vomiting diarrhea Denies fever chills Physical Exam Vital Signs: Vital Signs: Last Vital Signs Temp 98.1 F 01/04/23 08:00 Pulse 73 01/04/23 08:00 Resp 17 01/04/23 08:00 BP 136/71 01/04/23 08:00 Pulse Ox 96 01/04/23 08:00 O2 Del Method Room Air 01/04/23 08:00 BMI result Body Mass Index 45.0 Const: Other: No acute distress Resp: Other: Clear to auscultation bilaterally no rales rhonchi or wheezes Cardio: Other: No S4; positive S1-S2; no S3 murmurs rubs or gallops GI: Other: Obese soft positive bowel sounds. No fluid wave appreciated Extrem: Other: No edema bilaterally Objective Data Active Medications Bupropion HCl (Bupropion Hcl Xl 150 Mg Tab.Er.24h) 150 mg PO DAILY [facility] Last Admin: 01/04/23 08:22 Dose: 150 mg Documented By: LUCINDA Escitalopram Oxalate (Escitalopram Oxalate 20 Mg Tablet) 20 mg PO DAILY [facility] Last Admin: 01/04/23 08:22 Dose: 20 mg Documented By: LUCINDA Hydroxyzine HCl (Hydroxyzine Hcl 25 Mg Tablet) 25 mg PO TID PRN PRN Reason: Anxiety Ceftriaxone Sodium 1 gm/ (Sodium Chloride) 50 mls @ 100 mls/hr IV Q24H [facility] Last Infusion: 01/04/23 02:30 Dose: Infused Documented By: REESE Sodium Chloride (Ns) 1,000 mls @ 75 mls/hr IVCONT .[id number] [facility] Last Admin: 01/04/23 12:09 Dose: 75 mls/hr Documented By: LUCINDA Loratadine (Loratadine 10 Mg Tablet) 10 mg PO DAILY [facility] Last Admin: 01/04/23 08:22 Dose: 10 mg Documented By: LUCINDA Midodrine (Midodrine Hcl 5 Mg Tablet) 5 mg PO TID@0800,1300,1800 [facility] Last Admin: 01/04/23 13:14 Dose: 5 mg Documented By: LUCINDA Morphine Sulfate (Morphine Sulfate 2 Mg/Ml Cartridge) 2 mg IVPUSH Q4H PRN; Protocol PRN Reason: moderate pain Last Admin: 01/04/23 10:22 Dose: 2 mg Documented By: LUCINDA Ondansetron HCl (Ondansetron Hcl 4 Mg/2 Ml Vial) 4 mg IVPUSH Q4H PRN PRN Reason: Nausea and Vomiting Last Admin: 01/04/23 08:27 Dose: 4 mg Documented By: LUCINDA Sodium Chloride (0.9 % Sodium Chloride Flush 3 Ml Syringe) 3 ml IVFLUSH QSHIFT [facility] Last Admin: 01/04/23 15:20 Dose: Not Given Documented By: LCUINDA Non-Admin Reason: IV Running Warfarin Sodium (Warfarin Sodium 5 Mg Tablet) 5 mg PO DAILY@1800 [facility] Zolpidem Tartrate (Zolpidem Tartrate 5 Mg Tablet) 5 mg PO BEDTIME PRN PRN Reason: Insomnia Labs 01/03/23 00:33 01/03/23 00:33 Microbiology Microbiology Results: Microbiology 01/03/23 Unknown Urine Culture - Final Urine clean catch - Urine elliott top Strep agalactiae (Grp B) 01/03/23 10:50 Gram Stain - Final Ascites Fluid Anaerobic Culture - Preliminary No growth to date. Body Fluid Culture - Preliminary No growth after 1 day Assessment and Plan (1) Acute kidney insufficiency: Status: Acute (2) UTI (urinary tract infection): Status: Acute Plan 52F PMH morbid obesity, diet-controlled diabetes, stage IIIB cervical cancer status post radiation chemotherapy complicated by radiation cystitis, extensive lower extremity DVT on Coumadin, schizophrenia, GERD, history of cardiac arrest due to hemorrhagic shock in 2014 presented with abdominal pain found to have acute kidney injury 1.Acute kidney injury -volume repleted with crystalloids as well as albumin -subjectively improved -follow renals/divalents 2.Ascites -4.1 L removed -cell counts not consistent with SBP -follow clinically 3.History of lower extremity DVT -resume Coumadin an outpatient dosing -daily PT INR 4.Schizophrenia Well controlled on current therapies 5.UIT -strep -continue ceftriaxone Full code Coumadin Requires ongoing hospitalization for volume repletion with IV fluids to treat acute kidney injury. Time Spent With Patient Time: Total time managing care of this patient today ____ minutes. Quality Stroke Does the patient have a stroke diagnosis?: No VTE Prior VTE?: Yes VTE Risk Level:: Medical - moderate - high VTE Device Contraindication: Treatment Not Indicated VTE Drug Contraindication: N/A - Med Ordered
--- NOTE | 2023-01-04 15:31 | MHC.CM.PN ---
CM MET WITH PT WITH THE ASSISTANCE OF A NONPROFIT MANAGER PT REPORTS SHE LIVES WITH HER SON AND DAUGHTER SHE IS ACTIVE WITH [facility] FOR MED MANAGEMENT, THEY SEE HER 3X/WEEK SHE ALSO HAS DAILY CLIENT SERVICES MANAGER SERVICES (SON AND BROTHER) PT HAS A ROLLATOR SHE USES PRN HCP ON FILE PCP: JAS MCALLISTER DCP: HOME, RESUME SERVICES SON TO TRANSPORT
[2023-01-04 16:00] VITALS: BP 139/75; PULSE 77; RESP 18; TEMP 36.8; O2SAT 97
[2023-01-04 16:13] LABS: Alanine Aminotransferase 9 U/L (0-31); Albumin Level 4.1 g/dL (3.5-5.0); Alkaline Phosphatase 97 U/L (39-117); Anion Gap 17 (12-20); Aspartate Amino Transferase 13 U/L (5-31); Bilirubin Total 0.5 mg/dL (0.0-1.0); Blood Urea Nitrogen 25 mg/dL (9-16); Calcium 9.7 mg/dL (8.4-10.2); Carbon Dioxide 21 mmol/L (22-29); Chloride 99 mmol/L (96-108); Creatinine Clr Calc Pharmacy 30.3; Estimated Glomerular Filt Rate 20; Glucose Random 100 mg/dL (60-115); Potassium 4.8 mmol/L (3.3-5.1); Sodium 132 mmol/L (135-145); Total Protein 7.3 g/dL (6.5-8.0)
--- NOTE | 2023-01-04 17:08 | PM.PNNEP ---
Subjective Subjective Date of Service: 01/04/23 Interval history: feels better today. Abdominal pain improved Physical Exam Vital Signs: Vital Signs: Last Vital Signs Temp 98.2 F 01/04/23 16:00 Pulse 77 01/04/23 16:00 Resp 18 01/04/23 16:00 BP 139/75 01/04/23 16:00 Pulse Ox 97 01/04/23 16:00 O2 Del Method Room Air 01/04/23 16:00 BMI result Body Mass Index 45.0 Const: Other: No acute distress Resp: Other: Clear to auscultation bilaterally no rales rhonchi or wheezes Cardio: Other: No S4; positive S1-S2; no S3 murmurs rubs or gallops GI: Other: Obese soft positive bowel sounds. No fluid wave appreciated Extrem: Other: No edema bilaterally Objective Data Labs 01/04/23 15:47 01/04/23 15:47 Labs: Laboratory Results - last 24 hr 01/04/23 15:47 WBC 5.8 RBC 5.11 Hgb 14.2 Hct 43.7 MCV 85.5 MCH 27.8 MCHC 32.5 RDW 14.6 Plt Count 254 MPV 10.4 Absolute Nucleated RBC 0.000 Nucleated RBC % (auto) 0.0 PT 21.9 H INR 1.8 H Sodium 132 L Potassium 4.8 Chloride 99 Carbon Dioxide 21 L Anion Gap 17 BUN 25 H Creatinine 2.58 H Estim Creat Clear Calc 30.3 Estimated GFR 20 Random Glucose 100 Calcium 9.7 Total Bilirubin 0.5 AST 13 ALT 9 Alkaline Phosphatase 97 Total Protein 7.3 Albumin 4.1 Microbiology Microbiology Results: Microbiology 01/03/23 Unknown Urine clean catch - Urine elliott top Urine Culture - Final Strep agalactiae (Grp B) 01/03/23 10:50 Ascites Fluid Gram Stain - Final 01/03/23 10:50 Ascites Fluid Anaerobic Culture - Preliminary No growth to date. 01/03/23 10:50 Ascites Fluid Body Fluid Culture - Preliminary No growth after 1 day Procedures Date of Service Date of Service: 01/04/23 Assessment & Plan Assessment and plan (1) Acute kidney insufficiency: Status: Acute (2) UTI (urinary tract infection): Status: Acute Plan [address] [address] Hospitalist - Progress Note Signed Patient: Emilee Celis MR#: [id number] : 1970 Acct:[id number] Age/Sex: 52 / F Loc: HO. 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 Abdominal pain improved Review of Systems Denies chest pain Denies shortness of breath Denies nausea vomiting diarrhea Denies fever chills Physical Exam Vital Signs: Vital Signs: Last Vital Signs Temp 98.1 F 01/04/23 08:00 Pulse 73 01/04/23 08:00 Resp 17 01/04/23 08:00 BP 136/71 01/04/23 08:00 Pulse Ox 96 01/04/23 08:00 O2 Del Method Room Air 01/04/23 08:00 BMI result Body Mass Index 45.0 Const: Other: No acute distress Resp: Other: Clear to auscultation bilaterally no rales rhonchi or wheezes Cardio: Other: No S4; positive S1-S2; no S3 murmurs rubs or gallops GI: Other: Obese soft positive bowel sounds. No fluid wave appreciated Extrem: Other: No edema bilaterally Objective Data Active Medications Bupropion HCl (Bupropion Hcl Xl 150 Mg Tab.Er.24h) 150 mg PO DAILY [facility] Last Admin: 01/04/23 08:22 Dose: 150 mg Documented By: LUCINDA Escitalopram Oxalate (Escitalopram Oxalate 20 Mg Tablet) 20 mg PO DAILY [facility] Last Admin: 01/04/23 08:22 Dose: 20 mg Documented By: LUCINDA Hydroxyzine HCl (Hydroxyzine Hcl 25 Mg Tablet) 25 mg PO TID PRN PRN Reason: Anxiety Ceftriaxone Sodium 1 gm/ (Sodium Chloride) 50 mls @ 100 mls/hr IV Q24H [facility] Last Infusion: 01/04/23 02:30 Dose: Infused Documented By: REESE Sodium Chloride (Ns) 1,000 mls @ 75 mls/hr IVCONT .[id number] [facility] Last Admin: 01/04/23 12:09 Dose: 75 mls/hr Documented By: LUCINDA Loratadine (Loratadine 10 Mg Tablet) 10 mg PO DAILY [facility] Last Admin: 01/04/23 08:22 Dose: 10 mg Documented By: LUCINDA Midodrine (Midodrine Hcl 5 Mg Tablet) 5 mg PO TID@0800,1300,1800 [facility] Last Admin: 01/04/23 13:14 Dose: 5 mg Documented By: LUCINDA Morphine Sulfate (Morphine Sulfate 2 Mg/Ml Cartridge) 2 mg IVPUSH Q4H PRN; Protocol PRN Reason: moderate pain Last Admin: 01/04/23 10:22 Dose: 2 mg Documented By: LUCINDA Ondansetron HCl (Ondansetron Hcl 4 Mg/2 Ml Vial) 4 mg IVPUSH Q4H PRN PRN Reason: Nausea and Vomiting Last Admin: 01/04/23 08:27 Dose: 4 mg Documented By: LUCINDA Sodium Chloride (0.9 % Sodium Chloride Flush 3 Ml Syringe) 3 ml IVFLUSH QSHIFT [facility] Last Admin: 01/04/23 15:20 Dose: Not Given Documented By: LUCINDA Non-Admin Reason: IV Running Warfarin Sodium (Warfarin Sodium 5 Mg Tablet) 5 mg PO DAILY@1800 [facility] Zolpidem Tartrate (Zolpidem Tartrate 5 Mg Tablet) 5 mg PO BEDTIME PRN PRN Reason: Insomnia Labs 01/03/23 00:33 01/03/23 00:33 Microbiology Microbiology Results: Microbiology 01/03/23 Unknown Urine Culture - Final Urine clean catch - Urine elliott top Strep agalactiae (Grp B) 01/03/23 10:50 Gram Stain - Final Ascites Fluid Anaerobic Culture - Preliminary No growth to date. Body Fluid Culture - Preliminary No growth after 1 day Assessment and Plan (1) Acute kidney insufficiency: Status: Acute (2) UTI (urinary tract infection): Status: Acute Plan 52F PMH morbid obesity, diet-controlled diabetes, stage IIIB cervical cancer status post radiation chemotherapy complicated by radiation cystitis, extensive lower extremity DVT on Coumadin, schizophrenia, GERD, history of cardiac arrest due to hemorrhagic shock in 2014 presented with abdominal pain found to have acute kidney injury 1.Acute kidney injury- Due to prerenal state/ Ascites tap / Sepsis with Acute tubular injury Juanis better - No [place] on CT abd 2. CKD 3 B at baseline 3.Crevical cancer/ s/p radiation/ Chemo Ascites 4, UIT Urine studies ordered IV hydration Avoid Nephrotoxins Antibiotics for UTI MIDODRINE FOR LOW bp Thx Full consult to follow Dr. Guerra Time Spent With Patient Time: Total time managing care of this patient today ____ minutes. Progress Note: Quality Stroke Does the patient have a stroke diagnosis?: No
[2023-01-04 20:00] VITALS: BP 138/68; PULSE 83; RESP 20; TEMP 36.2; O2SAT 93
[2023-01-05 00:13] VITALS: BP 148/78; PULSE 88; RESP 20; TEMP 36.8; O2SAT 96
[2023-01-05 08:00] VITALS: BP 141/75; PULSE 89; RESP 18; TEMP 36.8; O2SAT 95
--- NOTE | 2023-01-05 11:08 | MHC.CM.PN ---
PER MD ROUNDS, PT NOT YET MEDICALLY CLEARED, STILL RECEIVING FLUIDS DCP REMAINS HOME WITH RESUMPTION OF ORE DIGGER CARE VIA FAMILY SUPPORT
--- NOTE | 2023-01-05 15:57 | P.PNNP_ITS ---
Subjective Subjective Date of Service: 01/05/23 Interval history: Seen and examiend,sasha meganjose m manuelito Physical Exam 2 Vital Signs: Vital Signs: Last Vital Signs Temp 98.2 F 01/05/23 08:00 Pulse 89 01/05/23 08:00 Resp 18 01/05/23 08:00 BP 141/75 H 01/05/23 08:00 Pulse Ox 95 01/05/23 08:00 O2 Del Method Room Air 01/05/23 08:00 BMI result Body Mass Index 45.0 Const: Other: No acute distress Resp: Other: Clear to auscultation bilaterally no rales rhonchi or wheezes Auscultation: clear to auscultation bilaterally Cardio: Other: No S4; positive S1-S2; no S3 murmurs rubs or gallops Rhythm: regular rhythm GI: Other: Obese soft positive bowel sounds. No fluid wave appreciated Palpation (GI): Soft to palpation Extrem: Other: No edema bilaterally Objective Data Labs 01/04/23 15:47 01/04/23 15:47 Labs: Laboratory Results - last 24 hr 01/04/23 01/05/23 01/05/23 15:47 06:41 06:54 WBC 5.8 RBC 5.11 Hgb 14.2 Hct 43.7 MCV 85.5 MCH 27.8 MCHC 32.5 RDW 14.6 Plt Count 254 MPV 10.4 Absolute Nucleated RBC 0.000 Nucleated RBC % (auto) 0.0 Hold Purple Top SEE NOTE PT 21.9 H 23.1 H INR 1.8 H 1.9 H Sodium 132 L Potassium 4.8 Chloride 99 Carbon Dioxide 21 L Anion Gap 17 BUN 25 H Creatinine 2.58 H Estim Creat Clear Calc 30.3 Estimated GFR 20 Random Glucose 100 Calcium 9.7 Total Bilirubin 0.5 AST 13 ALT 9 Alkaline Phosphatase 97 Total Protein 7.3 Albumin 4.1 Hold Green Top See Note Hold Yellow Top Cancelled Hep Bs Antigen Negative Hep Bs Antibody NONREACTIVE Hep B Core Total Ab Nonreactive Hepatitis C Ab (EIA) Nonreactive Microbiology Microbiology Results: Microbiology 01/03/23 10:50 Ascites Fluid Gram Stain - Final 01/03/23 10:50 Ascites Fluid Anaerobic Culture - Preliminary No growth to date. 01/03/23 10:50 Ascites Fluid Body Fluid Culture - Final No growth after 2 days 01/03/23 Unknown Urine clean catch - Urine elliott top Urine Culture - Final Strep agalactiae (Grp B) Procedures Date of Service Date of Service: 01/05/23 Assessment & Plan Assessment and plan (1) Acute kidney insufficiency: Status: Acute (2) UTI (urinary tract infection): Status: Acute Plan 52F PMH morbid obesity, diet-controlled diabetes, stage IIIB cervical cancer status post radiation chemotherapy complicated by radiation cystitis, extensive lower extremity DVT on Coumadin, schizophrenia, GERD, history of cardiac arrest due to hemorrhagic shock in 2014 presented with abdominal pain found to have acute kidney injury 1.Acute kidney injury- c/w renal hypoperfusion d/t cirrhosis perhaps worsend by LgVP but good news is renal func cont to grad imporve onlu on Midrodine/albumin 2. CKD 3 B at baseline 3.Crevical cancer/ s/p radiation/ Chemo Ascites 4, UIT REC: cont midrdine/IV albumin and track UOP/renakl func; avoid NToxins; if Scr incr then will add octreotide; still needs Urine studies --I will reorder Time Spent With Patient Time: Total time managing care of this patient today ____ minutes. Progress Note: Quality Stroke Does the patient have a stroke diagnosis?: No
[2023-01-05 16:00] VITALS: BP 152/80; PULSE 93; RESP 18; TEMP 37.2; O2SAT 94
[2023-01-05] MEDS: Warfarin Sodium 5 MG TABLET PO (18:05)
[2023-01-05] MEDS: Midodrine HCl 5 MG TABLET PO (18:05)
[2023-01-05] MEDS: Acetaminophen 325 MG TABLET 650 MG PO (18:05)
[2023-01-05 19:46] VITALS: BP 139/82; PULSE 102; RESP 18; TEMP 37.2; O2SAT 95
[2023-01-05] MEDS: ondansetron HCL 4 MG/2 ML VIAL IVPUSH (20:23)
[2023-01-05] MEDS: Morphine Sulfate 2 MG/ML CARTRIDGE IVPUSH (21:42)
[2023-01-05] MEDS: Zolpidem Tartrate 5 MG TABLET PO (21:42)
[2023-01-06] MEDS: cefTRIAXone sodium 1 GM in 0.9 % Sodium Chloride 50 ML IV (01:28)
[2023-01-06 03:18] VITALS: BP 155/87; PULSE 98; RESP 18; TEMP 36.4; O2SAT 95
[2023-01-06] MEDS: Morphine Sulfate 2 MG/ML CARTRIDGE IVPUSH ×3 (03:54→12:45)
[2023-01-06 04:19] LABS: Creatinine Urine 104.53 mg/dL; Sodium Urine Random < 20.0 mmol/L
[2023-01-06 06:56] LABS: MANUAL DIFF FLAG NO
[2023-01-06 07:00] LABS: Basophils Percent Auto 0.3 % (0-2); Hemoglobin 13.6 g/dl (12.0-16.0); Imm Gran Abs Auto 0.02 X10*3/uL (0.00-0.03); Imm Gran Pct Auto 0.3 % (0.0-0.4); Lymphocytes Absolute Auto 0.7 X10*3/uL (1.2-4.9); Lymphocytes Percent Auto 10.7 % (20-40); Mean Corpuscular HGB Conc 33.2 g/dl (31.0-35.0); Mean Corpuscular Hemoglobin 28.3 pg (27.0-33.0); Mean Corpuscular Volume 85.4 fL (80.0-98.0); Mean Platelet Volume 10.1 fL (9.4-12.3); Monocytes Absolute Auto 0.4 X10*3/uL (0.1-1.2); Neutrophils Absolute Auto 5.4 x10*3/uL (2.0-8.3); Neutrophils Percent Auto 82.7 % (45-73); Platelet Count 297 X10*3/uL (160-400); Red Cell Distribution Width 14.4 % (11.0-16.0); White Blood Count 6.5 X10*3/uL (4.8-10.8)
[2023-01-06 07:11] LABS: Prothrombin Time 24.5 SEC (11.1-13.3)
[2023-01-06 07:22] LABS: Alanine Aminotransferase 9 U/L (0-31); Albumin Level 4.2 g/dL (3.5-5.0); Alkaline Phosphatase 107 U/L (39-117); Anion Gap 18 (12-20); Aspartate Amino Transferase 13 U/L (5-31); Bilirubin Total 0.5 mg/dL (0.0-1.0); Blood Urea Nitrogen 27 mg/dL (9-16); Calcium 9.8 mg/dL (8.4-10.2); Carbon Dioxide 19 mmol/L (22-29); Chloride 95 mmol/L (96-108); Creatinine Clr Calc Pharmacy 26.7; Estimated Glomerular Filt Rate 17; Glucose Fasting 119 mg/dL (60-99); Potassium 4.6 mmol/L (3.3-5.1); Sodium 127 mmol/L (135-145); Total Protein 7.5 g/dL (6.5-8.0)
[2023-01-06 07:38] VITALS: BP 142/82; PULSE 103; RESP 17; TEMP 36.6; O2SAT 94
[2023-01-06] MEDS: Loratadine 10 MG TABLET PO (08:15)
[2023-01-06] MEDS: buPROPion HCl XL 150 MG TAB.ER.24H PO (08:15)
[2023-01-06] MEDS: Escitalopram Oxalate 20 MG TABLET PO (08:15)
[2023-01-06] MEDS: Midodrine HCl 5 MG TABLET PO ×3 (08:15→18:20)
[2023-01-06] MEDS: Sennosides/Docusate Sodium TABLET 2 TAB PO ×2 (08:41→19:22)
[2023-01-06] MEDS: Albumin Human 25 % 100 ML IV ×3 (08:42→19:58)
--- NOTE | 2023-01-06 10:22 | MHC.CM.PN ---
PER MD ROUNDS, PT WILL NOT DC TODAY, SHE IS EXPECTED TO HAVE ANOTHER PARACENTESIS AND NEPHROLOGY CONSULT DCP REMAINS HOME WITH RESUMPTION OF PEST CONTROL SPECIALIST AND [facility] FAMILY TO TRANSPORT
--- NOTE | 2023-01-06 10:24 | PM.GICN ---
History of Present Illness Data of Consult Service Date: 01/06/23 Requesting physician: Meme Garcia Primary Care Provider: Kristin Todd MD HPI Reason for consult: New onset cirrhosis with ascites 52 Uzbek-speaking female with morbid obesity, diet-controlled diabetes, stage IIIB cervical cancer (status post radiation chemotherapy complicated by radiation cystiti), extensive lower extremity DVT on Coumadin, schizophrenia, GERD, history of cardiac arrest due to hemorrhagic shock in 2014 admitted to [facility] [facility] on 01/03/23 with abdominal pain. Patient stated that her abdominal pain started about 2 days prior to presentation and is associated with bloating and abdominal distention, nausea without vomiting, soft stools. She reported subjective fevers, poor p.o. intake. In ED lab significant for acute kidney injury, CT abdomen with cirrhotic liver morphology and moderate volume ascites as well as enteritis. Patient was seen by Nephrology and started on midodrine and albumin with improvement in renal function. History obtained with the help [facility] historic interpreter, Akila Pt denies past or family hx of liver disease. She has noted some abdominal distansion for the past few weeks with sudden worsening associated with diffuse abdominal pain on 01/01/23. Patient denies any history of IV drug abuse, past blood transfusion or history of hepatitis. Patient complains of intermittent heartburn and constipation. Patient denies smoking or EtOH abuse. Patient gives a history of hoarseness since she was intubated during cardiac arrest Pt denies known family hx of colon polyps or GI malignancy. 01/03/[address] SCAN SHOWED: new onset cirrhosis with ascites APR 02, [address] SCAN ([facility] [place]) SHOWED: LIVER: Questionable nodular contour PANCREAS: At trophic BLADDER: Collapsed containing a Mcallister catheter please PERITONEUM OMENTUM AND MESENTERY: Moderate volume ascites slightly less than previous. No omental mesenteric lesions. VASCULATURE: Minimal vascular calcifications but no aneurysm, no evidence of venous thrombosis. ABDOMINAL WALL: Patient is status post a ventral mesh hernia repair with underlying rectus diastasis again noted no recurrent hernia There are multiple vascular collaterals in the pelvis and anterior abdominal wall. Right retroperitoneal hematoma appears nearly completely resolved. IMPRESSION: 1. No evidence of an acute process. 2. Small to moderate volume ascites slightly less than previous. 3. Mcallister catheter in a collapsed urinary bladder. Review of Systems Review of Systems: All other systems are reviewed and are negative Constitutional: Reports as per HPI and Reports no additional constitutional complaints Eyes: Reports as per HPI and Reports no additional eye complaints Reports system reviewed and no additional complaints, except as documented Cardiovascular: Reports as per HPI and Reports no additional cardiovascular complaints Respiratory: Reports as per HPI and Reports no additional respiratory complaints Gastrointestinal: Reports as per HPI and Reports no additional gastrointestinal complaints Genitourinary: Reports no additional female genitourinary complaints Musculoskeletal: Reports no additional musculoskeletal complaints Skin/Breast: Reports system reviewed and no additional complaints, except as docu Psychiatric: Reports no additional psychiatric complaints Endocrine: Reports no additional endocrine complaints Hematologic/Lymphatic: Reports no additional hematologic/lymphatic complaints Allergic/Immunologic: Reports no additional allergic/immunologic complaints Reports system reviewed and no additional complaints, except as documented and Reports Abnormal speech present REPLACED BY [facility] Past Medical History Medical History UTI (urinary tract infection) Cervical cancer Lymphedema Cardiac arrest DVT (deep venous thrombosis) Social History Social History Household Members: Family Housing: Apartment Do you presently have visiting nurse or other home services: Yes Alcohol intake: never Comment: DAUGHTER STAYING OVERNIGHT Patient Tobacco Use Status: Never used Tobacco Smoked in Last 30 Days: No Use of substances other than those prescribed or required for medical reasons: No Currently Displaying Signs/Symptoms of Drug Intoxication Withdrawal: No Have you been hit, kicked, punched, or otherwise hurt by someone within the past year? If so, by whom?: No Do you feel safe in your current relationship?: Yes Is there a partner from a previous relationship who is making you feel unsafe now?: No Are you made to feel afraid or neglected: No Advance Directives: Yes Advance Directives on File: Yes Advance Directives Date on File: 01/03/23 Do you have thoughts of harming others: None Do you have a plan to hurt others: No Plan Recently lost weight without trying: No Nutrition Risks: No Nutritional Risk Patient : No : No Poor oral hygiene: No service: No Meds Allergies Allergy/AdvReac Type Severity Reaction Status Date / Time No Known Allergies Allergy Verified 03/10/23 19:44 [No Known Allergies*] Active Medications: Current Medications Acetaminophen (Acetaminophen 325 Mg Tablet) 650 mg PO Q4H PRN PRN Reason: Pain, Mild (Pain Scale 1-3) Last Admin: 01/05/23 18:05 Dose: 650 mg Bupropion HCl (Bupropion Hcl Xl 150 Mg Tab.Er.24h) 150 mg PO DAILY [facility] Last Admin: 01/06/23 08:15 Dose: 150 mg Escitalopram Oxalate (Escitalopram Oxalate 20 Mg Tablet) 20 mg PO DAILY [facility] Last Admin: 01/06/23 08:15 Dose: 20 mg Hydroxyzine HCl (Hydroxyzine Hcl 25 Mg Tablet) 25 mg PO TID PRN PRN Reason: Anxiety Ceftriaxone Sodium 1 gm/ (Sodium Chloride) 50 mls @ 100 mls/hr IV Q24H [facility] Last Infusion: 01/06/23 02:08 Dose: Infused Lactated Ringer's (Lr) 1,000 mls @ 125 mls/hr IVCONT .Q8H [facility] Last Admin: 01/06/23 05:55 Dose: 125 mls/hr Albumin Human (Kedbumin 25 %) 100 mls @ 100 mls/hr IV Q6H [facility] Stop: 01/07/23 03:29 Last Admin: 01/06/23 08:42 Dose: 100 mls/hr Loratadine (Loratadine 10 Mg Tablet) 10 mg PO DAILY [facility] Last Admin: 01/06/23 08:15 Dose: 10 mg Midodrine (Midodrine Hcl 5 Mg Tablet) 5 mg PO TID@0800,1300,1800 [facility] Last Admin: 01/06/23 08:15 Dose: 5 mg Morphine Sulfate (Morphine Sulfate 2 Mg/Ml Cartridge) 2 mg IVPUSH Q4H PRN; Protocol PRN Reason: moderate pain Last Admin: 01/06/23 07:52 Dose: 2 mg Ondansetron HCl (Ondansetron Hcl 4 Mg/2 Ml Vial) 4 mg IVPUSH Q4H PRN PRN Reason: Nausea and Vomiting Last Admin: 01/05/23 20:23 Dose: 4 mg Senna/Docusate Sodium (Sennosides/Docusate Sodium Tablet) 2 tab PO BID [facility] Last Admin: 01/06/23 08:41 Dose: 2 tab Sodium Chloride (0.9 % Sodium Chloride Flush 3 Ml Syringe) 3 ml IVFLUSH QSHIFT [facility] Last Admin: 01/06/23 07:20 Dose: Not Given Warfarin Sodium (Warfarin Sodium 5 Mg Tablet) 5 mg PO DAILY@1800 [facility] Last Admin: 01/05/23 18:05 Dose: 5 mg Zolpidem Tartrate (Zolpidem Tartrate 5 Mg Tablet) 5 mg PO BEDTIME PRN PRN Reason: Insomnia Last Admin: 01/05/23 21:42 Dose: 5 mg Home Medications Medication Instructions Recorded Confirmed Last Taken Type benztropine 0.5 mg tablet 0.5 mg PO BID PRN pt unsure 01/03/23 03/11/23 Unknown History bupropion HCl 200 mg tablet,12 hr 200 mg PO BID depressive disorder 01/03/23 03/11/23 Unknown History sustained-release citalopram 40 mg tablet 40 mg PO QAM depressive disorder 01/03/23 03/11/23 Unknown History furosemide 40 mg tablet 40 mg PO DAILY 01/03/23 03/11/23 Unknown History hydroxyzine pamoate 25 mg capsule 25 mg PO TID PRN Anxiety 01/03/23 03/11/23 Unknown History loratadine 10 mg tablet 10 mg PO DAILY 01/03/23 03/11/23 Unknown History midodrine 10 mg tablet 10 mg PO TID 01/03/23 03/11/23 Unknown History ondansetron HCl 4 mg tablet 4 mg PO Q8H PRN Nausea And Vomiting 01/03/23 03/11/23 Unknown History risperidone microspheres 50 mg/2 50 mg IM Q2W 01/03/23 03/11/23 12/24/22 History mL intramuscular susp,ext release (Risperdal Consta) zolpidem 10 mg tablet 10 mg PO BEDTIME PRN Insomnia 01/03/23 03/11/23 Unknown History acetaminophen 325 mg tablet 975 mg PO Q8H PRN pain 03/11/23 03/11/23 Unknown History triamcinolone acetonide 0.025 % 1 appl topical BID 03/11/23 03/11/23 Unknown History topical ointment warfarin 3 mg tablet 3 - 6 mg PO DAILY 03/11/23 03/11/23 Unknown History warfarin 5 mg tablet 5 - 10 mg PO DAILY 03/11/23 03/11/23 Unknown History Physical Exam Vital Signs: Vital Signs: Last Vital Signs Temp 97.8 F 01/06/23 07:38 Pulse 103 H 01/06/23 07:38 Resp 17 01/06/23 07:38 BP 142/82 H 01/06/23 07:38 Pulse Ox 94 01/06/23 07:38 O2 Del Method Room Air 01/06/23 07:38 BMI result Body Mass Index 45.0 Const: General: no acute distress and ill appearing Nutritional Appearance: obese Orientation/consciousness: patient oriented x3 Limitations: language barrier HEENT: Head: Yes normal to inspection Ears: hearing grossly normal bilaterally Eyes: Sclerae: sclerae normal Pupils: Equal, round and reactive pupils present Neck: Neck: Yes normal visual inspection Chest: Chest palpation & inspection: normal inspection of the chest Resp: Effort & Inspection: normal respiratory effort Auscultation: clear to auscultation bilaterally Cardio: Palpation: normal PMI Rate: regular rate Rhythm: regular rhythm Heart sounds: S1 normal heart sound present, S2 normal heart sound present and no murmurs GI: Inspection: Yes distended Palpation (GI): Soft to palpation and No hepatosplenomegaly present Auscultation: normal bowel sounds Rectal Exam - Female: deferred Skin: General skin exam: no rashes or lesions noted Neuro: General: patient oriented x3, gait normal and moves all extremities Cranial nerves: Yes Equal, round and reactive pupils present Psych: Appearance: grossly normal Mental Status: mental status grossly normal Results Labs 01/11/23 07:02 01/11/23 07:02 Labs: Short CBC 01/06/23 Range/Units 06:41 WBC 6.5 (4.8-10.8) X10*3/uL Hgb 13.6 (12.0-16.0) g/dl Hct 41.0 (37.0-47.0) % Plt Count 297 (160-400) X10*3/uL BMP 01/06/23 06:41 Sodium 127 L Potassium 4.6 Chloride 95 L Carbon Dioxide 19 L BUN 27 H Creatinine 2.94 H Calcium 9.8 Liver Function 01/06/23 Range/Units 06:41 Total Bilirubin 0.5 (0.0-1.0) mg/dL AST 13 (5-31) U/L ALT 9 (0-31) U/L Alkaline Phosphatase 107 (39-117) U/L Albumin 4.2 (3.5-5.0) g/dL Microbiology Microbiology Results: Microbiology 01/03/23 10:50 Ascites Fluid Gram Stain - Final 01/03/23 10:50 Ascites Fluid Anaerobic Culture - Preliminary No growth to date. 01/03/23 10:50 Ascites Fluid Body Fluid Culture - Final No growth after 2 days 01/03/23 Unknown Urine clean catch - Urine elliott top Urine Culture - Final Strep agalactiae (Grp B) Assessment and Plan (1) Cirrhosis of liver with ascites: Status: Acute Plan 52 [place]-speaking female with morbid obesity, diet-controlled diabetes, stage IIIB cervical cancer (status post radiation chemotherapy complicated by radiation cystiti), extensive lower extremity DVT on Coumadin, schizophrenia, GERD, history of cardiac arrest due to hemorrhagic shock in 2014 admitted to [facility] on 01/03/23 with abdominal pain. She has noted some abdominal distansion for the past few weeks with sudden worsening associated with diffuse abdominal pain on 01/01/23. Patient denies any history of IV drug abuse, past blood transfusion or history of hepatitis. Patient complains of intermittent heartburn and constipation. Patient denies smoking or EtOH abuse. Abdominal CT scan showed cirrhosis and ascites. Elevated BUN and Cr likely due to Pre-renal azotemia with HRS. Hepatitis-B and C serologies were negative. Etiology of cirrhosis is unclear - most likely due to MALDONADO associated with morbid obesity and diabetes mellitus. Patient has normal LFTs, platelet count and albumin Ascitic fluid analysis is consistent with portal hypertension without SBP Meld score of 19 and MELD Na of 26. RECOMMENDATIONS: 1. Check ROX, protein electrophoresis, smooth muscle antibody, antimitochondrial antibody, alpha 1 antitrypsin, celiac serologies and iron studies - added to am labs 2. Abd US with Duplex to rule out portal vein thrombosis. 3. Agree with continuing midodrine, octreotide and albumin as per Nephrology recommendation. ADDENDUM Hospital course by problem: Acute kidney injury - Urine sodium was less than 20, consistent with prerenal state versus hepatorenal syndrome. We consulted Nephrology [Dr Mandujano]. We gave colloid resuscitation and added midodrine and octreotide. Renal function worsened despite these measures and we reached out to [facility] and [facility] for urgent liver transplant evaluation. She was accepted at both institutions pending bed availability. On 01/09/23, her renal function recovered rapidly to her normal baseline [from a peak creatinine of 4.04 to 0.83, literally within 24 hours] and this was maintained for 3 subsequent days. We canceled the urgent transfer. She will be seen on an outpatient basis by [facility]'s liver transplant program. Cirrhosis with ascites - This is a new diagnosis for her. She had 4.1L of ascites drained on 01/03/23 with albumin administration. Fluid studies were consistent with portal hypertension and there was no evidence of SBP. Due to reaccumulation of ascites causing abdominal and respiratory discomfort, another 5.5L was drained on 01/07/23, again with albumin administration. We consulted Gastroenterology [Dr Andino]. The patient does not drink alcohol. She does not have chronic hepatitis B or C. She does not have iron overload. She most likely has MALDONADO cirrhosis, though complete serologic workup is pending. Once her renal function recovered, she was started on furosemide and spironolactone. She was also instructed to limit sodium to 1500 mg/d. She will follow up with Gastroenterology [Dr Andino] in 2 weeks in addition to Transplant Hepatology as above. Acute hypoxic respiratory failure due to pleural effusions and pneumonia - She developed an oxygen requirement on 01/07/23 and required high-flow nasal cannula overnight. Imaging showed small pleural effusions and a patchy bilateral pneumonia. She had been on ceftriaxone for SBP prophylaxis and was switched to piperacillin-tazobactam for 4 days. PCR for SARS-CoV2, RSV, and influenza was negative. Blood cultures were drawn and were negative. She was weaned off oxygen and did not require it at rest or with ambulation. She was discharged on 3 days of amoxicillin-clavulanate. Hyponatremia - This is due to cirrhosis. She was fluid-restricted to 1200 mL/d. Once her renal function recovered, her sodium normalized as well and her fluid restriction was released. She was discharged home ON 01/11/23 with VNA services. Time Spent With Patient Time: Total time managing care of this patient today ____ minutes. Procedures Date of Service Date of Service: 03/12/23
[2023-01-06] MEDS: Octreotide Acetate 100 MCG/ML AMPUL SUBCUT ×2 (12:46→19:22)
[2023-01-06 14:15] LABS: Creatinine Urine 73.54 mg/dL; Sodium Urine Random < 20.0 mmol/L; Total Protein Urine Random < 7 mg/dL (<12)
--- NOTE | 2023-01-06 14:44 | P.PNIM_ITS ---
Subjective Subjective Date of Service: 01/06/23 Interval History: This history was taken in Maori from the patient. SCr worse abd distended, uncomfortable no prior diagnosis of cirrhosis Review of Systems Review of Systems: Yes all other systems are reviewed and are negative Physical Exam 2 Vital Signs: Vital Signs: Last Vital Signs Temp 97.8 F 01/06/23 07:38 Pulse 103 H 01/06/23 07:38 Resp 17 01/06/23 07:38 BP 142/82 H 01/06/23 07:38 Pulse Ox 94 01/06/23 07:38 O2 Del Method Room Air 01/06/23 07:38 BMI result Body Mass Index 45.0 Gen: in no acute distress HEENT: sclera anicteric, moist mucus membranes Neck: supple Lungs: clear to auscultation bilaterally Heart: regular rate and rhythm, no murmurs Abd: distended, fluid wave Ext: 1+ bilateral leg edema Skin: warm/well-perfused Neuro: alert and oriented x3, no focal findings Psych: appropriate affect Objective Data Active Medications Acetaminophen (Acetaminophen 325 Mg Tablet) 650 mg PO Q4H PRN PRN Reason: Pain, Mild (Pain Scale 1-3) Last Admin: 01/05/23 18:05 Dose: 650 mg Documented By: THEODORE Bupropion HCl (Bupropion Hcl Xl 150 Mg Tab.Er.24h) 150 mg PO DAILY [facility] Last Admin: 01/06/23 08:15 Dose: 150 mg Documented By: SIRISHA Escitalopram Oxalate (Escitalopram Oxalate 20 Mg Tablet) 20 mg PO DAILY [facility] Last Admin: 01/06/23 08:15 Dose: 20 mg Documented By: SIRISHA Hydroxyzine HCl (Hydroxyzine Hcl 25 Mg Tablet) 25 mg PO TID PRN PRN Reason: Anxiety Ceftriaxone Sodium 1 gm/ (Sodium Chloride) 50 mls @ 100 mls/hr IV Q24H [facility] Last Infusion: 01/06/23 02:08 Dose: Infused Documented By: KLEBER Lactated Ringer's (Lr) 1,000 mls @ 125 mls/hr IVCONT .Q8H [facility] Last Admin: 01/06/23 05:55 Dose: 125 mls/hr Documented By: KLEBER Albumin Human (Kedbumin 25 %) 100 mls @ 100 mls/hr IV Q6H [facility] Stop: 10/13/23 03:29 Last Admin: 01/06/23 13:35 Dose: 100 mls/hr Documented By: SIRISHA Loratadine (Loratadine 10 Mg Tablet) 10 mg PO DAILY [facility] Last Admin: 01/06/23 08:15 Dose: 10 mg Documented By: SIRISHA Midodrine (Midodrine Hcl 5 Mg Tablet) 5 mg PO TID@0800,1300,1800 [facility] Last Admin: 01/06/23 12:41 Dose: 5 mg Documented By: SIRISHA Morphine Sulfate (Morphine Sulfate 2 Mg/Ml Cartridge) 2 mg IVPUSH Q4H PRN; Protocol PRN Reason: moderate pain Last Admin: 01/06/23 12:45 Dose: 2 mg Documented By: SIRISHA Octreotide Acetate (Octreotide Acetate 100 Mcg/Ml Ampul) 100 mcg SUBCUT Q8H [facility] Last Admin: 01/06/23 12:46 Dose: 100 mcg Documented By: SIRISHA Ondansetron HCl (Ondansetron Hcl 4 Mg/2 Ml Vial) 4 mg IVPUSH Q4H PRN PRN Reason: Nausea and Vomiting Last Admin: 01/05/23 20:23 Dose: 4 mg Documented By: KLEBER Senna/Docusate Sodium (Sennosides/Docusate Sodium Tablet) 2 tab PO BID [facility] Last Admin: 01/06/23 08:41 Dose: 2 tab Documented By: SIRISHA Sodium Chloride (0.9 % Sodium Chloride Flush 3 Ml Syringe) 3 ml IVFLUSH QSHIFT [facility] Last Admin: 01/06/23 07:20 Dose: Not Given Documented By: SIRISHA Non-Admin Reason: IV Running Warfarin Sodium (Warfarin Sodium 5 Mg Tablet) 5 mg PO DAILY@1800 [facility] Last Admin: 01/05/23 18:05 Dose: 5 mg Documented By: THEODORE Zolpidem Tartrate (Zolpidem Tartrate 5 Mg Tablet) 5 mg PO BEDTIME PRN PRN Reason: Insomnia Last Admin: 01/05/23 21:42 Dose: 5 mg Documented By: CASTILM Labs 01/06/23 06:41 01/06/23 06:41 Labs: Laboratory Results - last 24 hr 01/06/23 01/06/23 01/06/23 03:43 06:41 13:14 MCV 85.4 MCH 28.3 MCHC 33.2 RDW 14.4 Plt Count 297 MPV 10.1 Immature Gran % (Auto) 0.3 Neut % (Auto) 82.7 H Lymph % (Auto) 10.7 L [place] % (Auto) 6.0 Eos % (Auto) 0.0 Baso % (Auto) 0.3 Lymph # (Auto) 0.7 L [place] # (Auto) 0.4 Eos # (Auto) 0.0 Baso # (Auto) 0.0 Abs Immat Gran (auto) 0.02 Absolute Neuts (auto) 5.4 Absolute Nucleated RBC 0.000 Nucleated RBC % (auto) 0.0 PT 24.5 H INR 2.0 H Anion Gap 18 Estim Creat Clear Calc 26.7 Estimated GFR 17 Fasting Glucose 119 H Calcium 9.8 Total Bilirubin 0.5 AST 13 ALT 9 Alkaline Phosphatase 107 Total Protein 7.5 Albumin 4.2 U Random Total Protein < 7 Ur Random Sodium < 20.0 < 20.0 Urine Creatinine 104.53 73.54 Microbiology Microbiology Results: Microbiology 01/03/23 10:50 Gram Stain - Final Ascites Fluid Anaerobic Culture - Preliminary No growth to date. Body Fluid Culture - Final No growth after 2 days Assessment and Plan (1) Acute kidney insufficiency: Status: Acute (2) UTI (urinary tract infection): Status: Acute Plan d4 52yo F with obesity, DM2 [A1c 5.2 12/23/22], stage 3B cervical CA s/p XRT/chemo complicated by radiation cystitis, hx DVT currently on warfarin, GERD, schizophrenia, hx cardiac arrest due to hemorrhagic shock in 2014 presented with abd pain, admitted for DAVID DAVID, prerenal vs hepatorenal - continue albumin + midodrine, add octreotide - Nephrology following cirrhosis with ascites, new diagnosis - 4.1L ascites drained by IR 01/03/23, appears consistent with portal HTN, no evidence of SBP - repeat tap for therapeutic purposes, give albumin with tap - GI consultation re new-onset cirrhosis; suspect MALDONADO hypoNa - likely hypovolemic + cirrhosis, will switch IV fluid to NS and water-restrict UTI - GBS in urine, on ceftriaxone 01/04-01/10/23 [can switch to cefuroxime upon discharge] hx LE DVT - warfarin, INR therapeutic schizoaffective disorder - continue hydroxyzine + bupropion + escitalopram; on long-acting risperidone as outpt VTE ppx - warfarin dispo - TBD In my clinical judgment, the patient requires continued inpatient hospitalization for the following reasons: DAVID Time Spent With Patient Time: Total time managing care of this patient today __45__ minutes. Quality Stroke Does the patient have a stroke diagnosis?: No VTE Prior VTE?: Yes VTE Risk Level:: Medical - moderate - high VTE Device Contraindication: Treatment Not Indicated VTE Drug Contraindication: N/A - Med Ordered
[2023-01-06] MEDS: 0.9 % Sodium Chloride 1,000 ML 100 ML IVCONT (14:59)
[2023-01-06 15:39] VITALS: BP 139/80; PULSE 120; RESP 18; TEMP 36.9; O2SAT 95
--- NOTE | 2023-01-06 15:51 | PC.NURSE ---
increased HR, 120AP, MD Notified. O2 88%, increased to 95% with deep breathing.
[2023-01-06] MEDS: Warfarin Sodium 5 MG TABLET PO (18:20)
[2023-01-06 19:18] VITALS: BP 158/85; PULSE 113; RESP 18; TEMP 36.8; O2SAT 95
[2023-01-06] MEDS: 0.9 % Sodium Chloride Flush 3 ML SYRINGE IVFLUSH (19:23)
--- NOTE | 2023-01-06 19:53 | PM.PNNEP ---
Subjective Subjective Date of Service: 01/06/23 Interval history: Seen and examined, events noted C/O incr ABD swelling SCr incr today ! Physical Exam Vital Signs: Vital Signs: Last Vital Signs Temp 98.2 F 01/06/23 19:18 Pulse 113 H 01/06/23 19:18 Resp 18 01/06/23 19:18 BP 158/85 H 01/06/23 19:18 Pulse Ox 95 01/06/23 19:18 O2 Del Method Nasal Cannula 01/06/23 19:18 O2 Flow Rate 2 01/06/23 19:18 BMI result Body Mass Index 45.0 Const: Other: No acute distress Resp: Other: Clear to auscultation bilaterally no rales rhonchi or wheezes Auscultation: clear to auscultation bilaterally Cardio: Other: No S4; positive S1-S2; no S3 murmurs rubs or gallops Rhythm: regular rhythm GI: Other: Obese soft positive bowel sounds. No fluid wave appreciated Palpation (GI): Soft to palpation Extrem: Other: No edema bilaterally Objective Data Labs 01/06/23 06:41 01/06/23 06:41 Labs: Laboratory Results - last 24 hr 01/06/23 01/06/23 01/06/23 03:43 06:41 13:14 WBC 6.5 RBC 4.80 Hgb 13.6 Hct 41.0 MCV 85.4 MCH 28.3 MCHC 33.2 RDW 14.4 Plt Count 297 MPV 10.1 Immature Gran % (Auto) 0.3 Neut % (Auto) 82.7 H Lymph % (Auto) 10.7 L [place] % (Auto) 6.0 Eos % (Auto) 0.0 Baso % (Auto) 0.3 Lymph # (Auto) 0.7 L [place] # (Auto) 0.4 Eos # (Auto) 0.0 Baso # (Auto) 0.0 Abs Immat Gran (auto) 0.02 Absolute Neuts (auto) 5.4 Absolute Nucleated RBC 0.000 Nucleated RBC % (auto) 0.0 PT 24.5 H INR 2.0 H Sodium 127 L Potassium 4.6 Chloride 95 L Carbon Dioxide 19 L Anion Gap 18 BUN 27 H Creatinine 2.94 H Estim Creat Clear Calc 26.7 Estimated GFR 17 Fasting Glucose 119 H Calcium 9.8 Total Bilirubin 0.5 AST 13 ALT 9 Alkaline Phosphatase 107 Total Protein 7.5 Albumin 4.2 U Random Total Protein < 7 Ur Random Sodium < 20.0 < 20.0 Urine Creatinine 104.53 73.54 Microbiology Microbiology Results: Microbiology 01/03/23 10:50 Ascites Fluid Gram Stain - Final 01/03/23 10:50 Ascites Fluid Anaerobic Culture - Preliminary No growth to date. 01/03/23 10:50 Ascites Fluid Body Fluid Culture - Final No growth after 2 days 01/03/23 Unknown Urine clean catch - Urine elliott top Urine Culture - Final Strep agalactiae (Grp B) Procedures Date of Service Date of Service: 01/06/23 Assessment & Plan Assessment and plan (1) Acute kidney insufficiency: Status: Acute (2) UTI (urinary tract infection): Status: Acute Plan 52F PMH morbid obesity, diet-controlled diabetes, stage IIIB cervical cancer status post radiation chemotherapy complicated by radiation cystitis, extensive lower extremity DVT on Coumadin, schizophrenia, GERD, history of cardiac arrest due to hemorrhagic shock in 2014 presented with abdominal pain found to have acute kidney injury 1.Acute kidney injury- incr Scr is very concerningfor HRS type 1 and would rec aggressive TX as such with cocktail of ( IV alb, midrdine and octreotide); no indication for ENGINE MAINTENANCE MECHANIC at this time but need to re-eval daily 2. CKD 3B at baseline 3.Crevical cancer/ s/p radiation/ Chemo Ascites 4, UIT REC: cont midrdine/IV albumin and add octreotide and track UOP/renakl func; avoid NToxins; GI eval and if WRF then may need to comsider eval for liver xplant and possible xfer to Liver Xpalnt center Will follow clsoley with team Time Spent With Patient Time: Total time managing care of this patient today ____ minutes. Progress Note: Quality Stroke Does the patient have a stroke diagnosis?: No
[2023-01-06] MEDS: Zolpidem Tartrate 5 MG TABLET PO (22:33)
[2023-01-07] VITALS (11 sets, daily range): BP systolic 101–143; BP diastolic 69–93; PULSE 93–139; RESP 20–28; TEMP 36.5–37.1; O2SAT 85–99
--- NOTE | 2023-01-07 | ECG_ITS ---
Test Reason : tachycardia Blood Pressure : / mmHG Vent. Rate : 128 BPM Atrial Rate : 128 BPM P-R Int : 144 ms QRS Dur : 078 ms QT Int : 318 ms P-R-T Axes : 039 071 100 degrees QTc Int : 464 ms Sinus tachycardia T-wave inversion in Lateral leads Abnormal ECG When compared with ECG of 30-AUG-2021 17:27, Vent. rate has increased BY 67 BPM Nonspecific T wave abnormality no longer evident in Anterior leads T wave inversion now evident in Lateral leads Referred By: Mmee Garcia Electronically Signed By:TRACE MOHAMUD MD
[2023-01-07] MEDS: cefTRIAXone sodium 1 GM in 0.9 % Sodium Chloride 50 ML IV (01:39)
[2023-01-07] MEDS: Octreotide Acetate 100 MCG/ML AMPUL SUBCUT (04:02)
[2023-01-07] MEDS: Albumin Human 25 % 100 ML IV ×4 (04:03→23:42)
--- NOTE | 2023-01-07 05:12 | PC.NURSE ---
Routine vitals at 1900 showed BP 158/85 H 113, O2 sats at 88% RA not improved with repositioning upright, Dr. Loyd was notified, Dr. Loyd said to give scheduled Albumin despite of BP, O2 placed at 2L/min via NC as MD, O2 sats improved to 95%.
[2023-01-07 06:06] LABS: MANUAL DIFF FLAG NO
[2023-01-07 06:23] LABS: Basophils Percent Auto 0.1 % (0-2); Eosinophils Percent Auto 0.1 % (0-4); Imm Gran Abs Auto 0.03 X10*3/uL (0.00-0.03); Imm Gran Pct Auto 0.4 % (0.0-0.4); Lymphocytes Absolute Auto 0.6 X10*3/uL (1.2-4.9); Lymphocytes Percent Auto 8.5 % (20-40); Mean Corpuscular HGB Conc 33.3 g/dl (31.0-35.0); Mean Corpuscular Volume 84.1 fL (80.0-98.0); Mean Platelet Volume 10.2 fL (9.4-12.3); Monocytes Absolute Auto 0.6 X10*3/uL (0.1-1.2); Monocytes Percent Auto 7.8 % (2-11); Neutrophils Absolute Auto 5.9 x10*3/uL (2.0-8.3); Neutrophils Percent Auto 83.1 % (45-73); Platelet Count 301 X10*3/uL (160-400); Red Blood Count 4.64 X10*6/uL (4.20-5.50); Red Cell Distribution Width 14.4 % (11.0-16.0); White Blood Count 7.1 X10*3/uL (4.8-10.8)
[2023-01-07 06:27] LABS: Alanine Aminotransferase 10 U/L (0-31); Albumin Level 5.4 g/dL (3.5-5.0); Alkaline Phosphatase 96 U/L (39-117); Anion Gap 20 (12-20); Aspartate Amino Transferase 18 U/L (5-31); Bilirubin Total 0.9 mg/dL (0.0-1.0); Blood Urea Nitrogen 34 mg/dL (9-16); Calcium 10.1 mg/dL (8.4-10.2); Carbon Dioxide 19 mmol/L (22-29); Chloride 93 mmol/L (96-108); Creatinine Clr Calc Pharmacy 20.6; Estimated Glomerular Filt Rate 12; Glucose Fasting 127 mg/dL (60-99); Potassium 4.7 mmol/L (3.3-5.1); Sodium 127 mmol/L (135-145); Total Protein 8.2 g/dL (6.5-8.0)
[2023-01-07 06:30] LABS: INTERNATIONAL NORM RATIO 3.2 (0.9-1.1); Iron 36 mcg/dL (30-160); Percent Iron Saturation 20 % (15-50); Prothrombin Time 38.9 SEC (11.1-13.3); Total Iron Binding Capacity 184 mcg/dL (228-428); Unsaturated Iron Binding 148 ug/dL
[2023-01-07 06:45] LABS: Ferritin 152 ng/mL (10-250)
[2023-01-07] MEDS: Morphine Sulfate 2 MG/ML CARTRIDGE IVPUSH ×2 (07:46→23:41)
[2023-01-07] MEDS: 0.9 % Sodium Chloride Flush 3 ML SYRINGE IVFLUSH ×3 (07:47→19:20)
[2023-01-07] MEDS: buPROPion HCl XL 150 MG TAB.ER.24H PO (07:48)
[2023-01-07] MEDS: Sennosides/Docusate Sodium TABLET 2 TAB PO ×2 (07:48→19:18)
[2023-01-07] MEDS: Loratadine 10 MG TABLET PO (07:49)
[2023-01-07] MEDS: Midodrine HCl 5 MG TABLET PO ×3 (07:49→16:59)
[2023-01-07] MEDS: Escitalopram Oxalate 20 MG TABLET PO (07:49)
[2023-01-07] MEDS: Lidocaine HCl 1 % 20 ML VIAL 5 ML SUBCUT (11:28)
[2023-01-07] MEDS: Furosemide 20 MG/2 ML VIAL IVPUSH (11:46)
--- NOTE | 2023-01-07 11:49 | MHC.CM.PN ---
PER MD ROUNDS, PT NOT YET CLEARED FOR DC CURRENT DC PLAN REMAINS HOME WITH RESUMPTION OF SERVICES CM FOLLOWING FOR CHANGING DC NEEDS
[2023-01-07] MEDS: Octreotide Acetate 100 MCG/ML AMPUL 200 MCG SUBCUT ×2 (11:56→19:18)
[2023-01-07] MEDS: Furosemide 40 MG/4 ML VIAL IVPUSH (13:38)
[2023-01-07 14:33] LABS: Procalcitonin 0.04 ng/mL
[2023-01-07 15:17] LABS: ABG Base Excess -1.4 mmol/L; ABG HCO3 23 mmol/L (22-26); ABG pCO2 40 mmHg (32-45); ABG pH 7.37 (7.35-7.45); ABG pO2 85 mmHg (83-108)
[2023-01-07] MEDS: Spironolactone 25 MG TABLET PO (15:31)
--- NOTE | 2023-01-07 15:46 | HO.PM.IMPN ---
Subjective Subjective Date of Service: 01/07/23 Interval History: Paracentesis done this morning, 5.5L fluid removed Pt with worsening hypoxia and dyspnea No GI bleeding No chest pain Review of Systems Review of Systems: Yes all other systems are reviewed and are negative Physical Exam Vital Signs: Vital Signs: Last Vital Signs Temp 98.8 F 01/07/23 15:15 Pulse 127 H 01/07/23 15:15 Resp 28 H 01/07/23 15:15 BP 117/75 01/07/23 15:15 Pulse Ox 95 01/07/23 15:15 O2 Del Method Non-Rebreather Ma 01/07/23 15:15 O2 Flow Rate 10 01/07/23 15:15 BMI result Body Mass Index 45.0 Gen: in moderate respiratory distress HEENT: sclera anicteric, moist mucus membranes Neck: supple Lungs: diminished R side Heart: regular rate and rhythm, no murmurs Abd: non-tense ascites Ext: 1+ bilateral leg edema Skin: warm/well-perfused Neuro: alert and oriented x3, no asterixis Psych: appropriate affect Objective Data Active Medications Acetaminophen (Acetaminophen 325 Mg Tablet) 650 mg PO Q4H PRN PRN Reason: Pain, Mild (Pain Scale 1-3) Last Admin: 01/05/23 18:05 Dose: 650 mg Documented By: THEODORE Bupropion HCl (Bupropion Hcl Xl 150 Mg Tab.Er.24h) 150 mg PO DAILY [facility] Last Admin: 01/07/23 07:48 Dose: 150 mg Documented By: MERA Escitalopram Oxalate (Escitalopram Oxalate 20 Mg Tablet) 20 mg PO DAILY [facility] Last Admin: 01/07/23 07:49 Dose: 20 mg Documented By: MERA Hydroxyzine HCl (Hydroxyzine Hcl 25 Mg Tablet) 25 mg PO TID PRN PRN Reason: Anxiety Ceftriaxone Sodium 1 gm/ (Sodium Chloride) 50 mls @ 100 mls/hr IV Q24H [facility] Last Infusion: 01/07/23 02:35 Dose: Infused Documented By: KLEBER Albumin Human (Kedbumin 25 %) 100 mls @ 100 mls/hr IV Q6H [facility] Stop: 01/08/23 12:59 Albumin Human (Kedbumin 25 %) 100 mls @ 100 mls/hr IV ONCE ONE Stop: 01/07/23 16:14 Last Admin: 01/07/23 15:26 Dose: 100 mls/hr Documented By: MERA Loratadine (Loratadine 10 Mg Tablet) 10 mg PO DAILY [facility] Last Admin: 01/07/23 07:49 Dose: 10 mg Documented By: MERA Midodrine (Midodrine Hcl 5 Mg Tablet) 5 mg PO TID@0800,1300,1800 [facility] Last Admin: 01/07/23 13:38 Dose: 5 mg Documented By: MERA Morphine Sulfate (Morphine Sulfate 2 Mg/Ml Cartridge) 2 mg IVPUSH Q4H PRN; Protocol PRN Reason: moderate pain Last Admin: 01/07/23 07:46 Dose: 2 mg Documented By: MERA Octreotide Acetate (Octreotide Acetate 100 Mcg/Ml Ampul) 200 mcg SUBCUT Q8H [facility] Last Admin: 01/07/23 11:56 Dose: 200 mcg Documented By: MERA Ondansetron HCl (Ondansetron Hcl 4 Mg/2 Ml Vial) 4 mg IVPUSH Q4H PRN PRN Reason: Nausea and Vomiting Last Admin: 01/05/23 20:23 Dose: 4 mg Documented By: KLEBER Senna/Docusate Sodium (Sennosides/Docusate Sodium Tablet) 2 tab PO BID [facility] Last Admin: 01/07/23 07:48 Dose: 2 tab Documented By: MERA Sodium Chloride (0.9 % Sodium Chloride Flush 3 Ml Syringe) 3 ml IVFLUSH QSHIFT [facility] Last Admin: 01/07/23 15:16 Dose: 3 ml Documented By: MERA Spironolactone (Spironolactone 25 Mg Tablet) 25 mg PO BID@0900,1800 [facility]; Protocol Warfarin Sodium (Warfarin Sodium 5 Mg Tablet) 5 mg PO DAILY@1800 [facility] Last Admin: 01/06/23 18:20 Dose: 5 mg Documented By: SIRISHA Zolpidem Tartrate (Zolpidem Tartrate 5 Mg Tablet) 5 mg PO BEDTIME PRN PRN Reason: Insomnia Last Admin: 01/06/23 22:33 Dose: 5 mg Documented By: KLEBER Labs 01/07/23 05:34 01/07/23 05:34 Labs: Laboratory Results - last 24 hr 01/07/23 01/07/23 05:34 15:12 MCV 84.1 MCH 28.0 MCHC 33.3 RDW 14.4 Plt Count 301 MPV 10.2 Immature Gran % (Auto) 0.4 Neut % (Auto) 83.1 H Lymph % (Auto) 8.5 L [place] % (Auto) 7.8 Eos % (Auto) 0.1 Baso % (Auto) 0.1 Lymph # (Auto) 0.6 L [place] # (Auto) 0.6 Eos # (Auto) 0.0 Baso # (Auto) 0.0 Abs Immat Gran (auto) 0.03 Absolute Neuts (auto) 5.9 Absolute Nucleated RBC 0.000 Nucleated RBC % (auto) 0.0 PT 38.9 H D INR 3.2 H O2 Saturation 98.0 ABG pH at Pt Temp 7.37 ABG pCO2 at Pt Temp 40 ABG pO2 at Pt Temp 85 ABG HCO3 23 ABG Base Excess (Actual) -1.4 Anion Gap 20 Estim Creat Clear Calc 20.6 Estimated GFR 12 Fasting Glucose 127 H Calcium 10.1 Iron 36 TIBC 184 L % Saturation 20 Unsat Iron Binding 148 Ferritin 152 Total Bilirubin 0.9 AST 18 ALT 10 Alkaline Phosphatase 96 Total Protein 8.2 H Albumin 5.4 H Procalcitonin 0.04 Impressions Chest X-Ray 01/06/23 16:34 IMPRESSION: As above. Abdomen Ultrasound 01/07/23 10:06 IMPRESSION: Heterogeneous liver echotexture. No focal liver lesion. Moderate amount of ascites. Limited visualization of the portal splenic confluence and right and left hepatic arteries otherwise normal liver Doppler exam. Doppler Study Ultrasound 01/07/23 10:06 IMPRESSION: Heterogeneous liver echotexture. No focal liver lesion. Moderate amount of ascites. Limited visualization of the portal splenic confluence and right and left hepatic arteries otherwise normal liver Doppler exam. Paracentesis Ultrasound 01/07/23 11:30 Impression: Ultrasound-guided paracentesis as described above. No immediate complications Chest X-Ray 01/07/23 12:37 IMPRESSION: Suspect persistent, question worsening bilateral pneumonias and left pleural effusion. Chest CT 01/07/23 14:33 IMPRESSION: Bilateral multilobar airspace disease suggestive of pneumonia. Small right pleural effusion. Elevated right hemidiaphragm. Ascites. Fleischner guidelines were followed. Microbiology Microbiology Results: Microbiology 01/03/23 10:50 Gram Stain - Final Ascites Fluid Anaerobic Culture - Preliminary No growth to date. Body Fluid Culture - Final No growth after 2 days Assessment and Plan (1) Acute kidney insufficiency: Status: Acute (2) UTI (urinary tract infection): Status: Acute Plan d5 52yo F with obesity, DM2 [A1c 5.2 12/23/22], stage 3B cervical CA s/p XRT/chemo complicated by radiation cystitis, hx DVT currently on warfarin, GERD, schizophrenia, hx cardiac arrest due to hemorrhagic shock in 2014 presented with abd pain, admitted for DAVID acute hypoxic respiratory failure - likely due to pleural effusion and pneumonia, will place on HFNC for now; if worsens, may need NIPPV in ICU PNA - start pip-jacky today, check blood cultures, trend PCT, check MRSA swab DAVID, prerenal vs hepatorenal - continue albumin + midodrine, increase octreotide - Nephrology following - will contact [facility] for transplant evaluation cirrhosis with ascites, new diagnosis - 4.1L ascites drained by IR 01/03/23, consistent with portal HTN, no evidence of SBP; repeat tap done 01/07/23 with 5.5L ascites drained - GI consulted, agree with likely MALDONADO cirrhosis hypoNa - due to cirrhosis; fluid-restrict to 1200 mL/d UTI - GBS in urine, on ceftriaxone 01/04-01/07, switched to pip-jacky today for PNA hx LE DVT - hold warfarin, INR 3.2 schizoaffective disorder - continue hydroxyzine + bupropion + escitalopram; on long-acting risperidone as outpt VTE ppx - warfarin dispo - TBD In my clinical judgment, the patient requires continued inpatient hospitalization for the following reasons: DAVID, hypoxia Time Spent With Patient Time: Total time managing care of this patient today __55__ minutes. Quality Stroke Does the patient have a stroke diagnosis?: No VTE Prior VTE?: Yes VTE Risk Level:: Medical - moderate - high VTE Device Contraindication: Treatment Not Indicated VTE Drug Contraindication: N/A - Med Ordered
[2023-01-07] MEDS: Piperacillin Sodium/Tazobactam 2.25 GM in 0.9 % Sodium Chloride 50 ML IV ×2 (16:55→21:31)
[2023-01-07] MEDS: Acetaminophen 325 MG TABLET 650 MG PO ×2 (16:58→22:26)
--- NOTE | 2023-01-07 19:47 | PM.PNNEP ---
Subjective Subjective Date of Service: 01/07/23 Interval history: Seen and examinede, events noted Physical Exam Vital Signs: Vital Signs: Last Vital Signs Temp 98.4 F 01/07/23 19:15 Pulse 125 H 01/07/23 19:15 Resp 28 H 01/07/23 19:15 BP 122/74 01/07/23 19:15 Pulse Ox 99 01/07/23 19:15 O2 Del Method High Flow Nasal C annula 01/07/23 19:15 O2 Flow Rate 65 01/07/23 19:15 BMI result Body Mass Index 45.0 Const: Other: No acute distress Resp: Other: Clear to auscultation bilaterally no rales rhonchi or wheezes Auscultation: clear to auscultation bilaterally Cardio: Other: No S4; positive S1-S2; no S3 murmurs rubs or gallops Rhythm: regular rhythm GI: Other: Obese soft positive bowel sounds. No fluid wave appreciated Palpation (GI): Soft to palpation Extrem: Other: No edema bilaterally Objective Data Labs 01/07/23 05:34 01/07/23 05:34 Labs: Laboratory Results - last 24 hr 01/07/23 01/07/23 05:34 15:12 WBC 7.1 RBC 4.64 Hgb 13.0 Hct 39.0 MCV 84.1 MCH 28.0 MCHC 33.3 RDW 14.4 Plt Count 301 MPV 10.2 Immature Gran % (Auto) 0.4 Neut % (Auto) 83.1 H Lymph % (Auto) 8.[address] [place] % (Auto) 7.8 Eos % (Auto) 0.1 Baso % (Auto) 0.1 Lymph # (Auto) 0.[address] [place] # (Auto) 0.6 Eos # (Auto) 0.0 Baso # (Auto) 0.0 Abs Immat Gran (auto) 0.03 Absolute Neuts (auto) 5.9 Absolute Nucleated RBC 0.000 Nucleated RBC % (auto) 0.0 PT 38.9 H D INR 3.2 H O2 Saturation 98.0 ABG pH at Pt Temp 7.37 ABG pCO2 at Pt Temp 40 ABG pO2 at Pt Temp 85 ABG HCO3 23 ABG Base Excess (Actual) -1.4 Sodium 127 L Potassium 4.7 Chloride 93 L Carbon Dioxide 19 L Anion Gap 20 BUN 34 H Creatinine 3.81 H Estim Creat Clear Calc 20.6 Estimated GFR 12 Fasting Glucose 127 H Calcium 10.1 Iron 36 TIBC 184 L % Saturation 20 Unsat Iron Binding 148 Ferritin 152 Total Bilirubin 0.9 AST 18 ALT 10 Alkaline Phosphatase 96 Total Protein 8.2 H Albumin 5.4 H Procalcitonin 0.04 Microbiology Microbiology Results: Microbiology 01/03/23 10:50 Ascites Fluid Gram Stain - Final 01/03/23 10:50 Ascites Fluid Anaerobic Culture - Preliminary No growth to date. 01/03/23 10:50 Ascites Fluid Body Fluid Culture - Final No growth after 2 days 01/03/23 Unknown Urine clean catch - Urine elliott top Urine Culture - Final Strep agalactiae (Grp B) Procedures Date of Service Date of Service: 01/07/23 Assessment & Plan Assessment and plan (1) Acute kidney insufficiency: Status: Acute (2) UTI (urinary tract infection): Status: Acute Plan 52 F PMH morbid obesity, diet-controlled diabetes, stage IIIB cervical cancer status post radiation chemotherapy complicated by radiation cystitis, extensive lower extremity DVT on Coumadin, schizophrenia, GERD, history of cardiac arrest due to hemorrhagic shock in 2014 presented with abdominal pain found to have acute kidney injury and newly dx liver cirrhsois/ascites 1.Acute kidney injury- incr Scr despite ongoing aggressive Tx with cocktail ( IV alb, midrdine and octreotide); no indication for LAMP TESTER AND INSPECTOR at this time but need to re-eval daily 2. CKD 3B at baseline 3.Crevical cancer/ s/p radiation/ Chemo Ascites 4, UIT REC: cont midrdine/IV albumin and octreotide and track UOP/renakl func; avoid NToxins; GI eval and if WRF then may need to comsider eval for liver xplant and possible xfer to Liver Xpalnt center Will follow clsoley with team Time Spent With Patient Time: Total time managing care of this patient today ____ minutes. Progress Note: Quality Stroke Does the patient have a stroke diagnosis?: No
[2023-01-07 21:28] LABS: ABG Refer to POC result
[2023-01-07 22:23] LABS: Influenza A PCR NEGATIVE (Negative); Influenza B PCR NEGATIVE (Negative); Resp Syncy Virus RNA Qual PCR NEGATIVE (Negative); SARS COV2 PCR INHOUSE NEGATIVE (Negative)
[2023-01-07] MEDS: Calcium Carbonate 750 MG TAB.CHEW PO (22:26)
[2023-01-08] VITALS (9 sets, daily range): BP systolic 121–128; BP diastolic 73–90; PULSE 111–125; RESP 17–24; TEMP 36.1–37.2; O2SAT 95–100
[2023-01-08] MEDS: Zolpidem Tartrate 5 MG TABLET PO ×2 (00:53→23:42)
[2023-01-08] MEDS: Octreotide Acetate 100 MCG/ML AMPUL 200 MCG SUBCUT ×3 (03:16→17:58)
[2023-01-08] MEDS: Piperacillin Sodium/Tazobactam 2.25 GM in 0.9 % Sodium Chloride 50 ML IV ×4 (03:17→22:13)
[2023-01-08] MEDS: Albumin Human 25 % 100 ML IV ×2 (05:34→10:40)
[2023-01-08 08:04] LABS: Alanine Aminotransferase 9 U/L (0-31); Albumin Level 5.5 g/dL (3.5-5.0); Alkaline Phosphatase 78 U/L (39-117); Anion Gap 23 (12-20); Aspartate Amino Transferase 26 U/L (5-31); Bilirubin Total 1.3 mg/dL (0.0-1.0); Blood Urea Nitrogen 41 mg/dL (9-16); Calcium 10.4 mg/dL (8.4-10.2); Carbon Dioxide 15 mmol/L (22-29); Chloride 95 mmol/L (96-108); Creatinine Clr Calc Pharmacy 19.4; Estimated Glomerular Filt Rate 12; Glucose Fasting 98 mg/dL (60-99); Magnesium 2.6 mg/dL (1.6-2.6); Potassium 4.4 mmol/L (3.3-5.1); Procalcitonin 0.09 ng/mL; Sodium 129 mmol/L (135-145); Total Protein 8.2 g/dL (6.5-8.0)
[2023-01-08] MEDS: Acetaminophen 325 MG TABLET 650 MG PO (08:37)
[2023-01-08] MEDS: buPROPion HCl XL 150 MG TAB.ER.24H PO (08:37)
[2023-01-08] MEDS: Sennosides/Docusate Sodium TABLET 2 TAB PO ×2 (08:37→22:13)
[2023-01-08] MEDS: Escitalopram Oxalate 20 MG TABLET PO (08:37)
[2023-01-08] MEDS: Loratadine 10 MG TABLET PO (08:37)
[2023-01-08] MEDS: Midodrine HCl 5 MG TABLET PO ×3 (08:37→16:52)
[2023-01-08] MEDS: Spironolactone 25 MG TABLET PO (08:37)
[2023-01-08] MEDS: 0.9 % Sodium Chloride Flush 3 ML SYRINGE IVFLUSH ×3 (08:39→23:42)
[2023-01-08 09:22] LABS: MANUAL DIFF FLAG NO
[2023-01-08 09:25] LABS: Basophils Percent Auto 0.3 % (0-2); Eosinophils Absolute Auto 0.1 X10*3/uL (0.0-0.4); Eosinophils Percent Auto 1.4 % (0-4); Hematocrit 40.1 % (37.0-47.0); Hemoglobin 13.2 g/dl (12.0-16.0); Imm Gran Abs Auto 0.02 X10*3/uL (0.00-0.03); Imm Gran Pct Auto 0.3 % (0.0-0.4); Lymphocytes Absolute Auto 0.7 X10*3/uL (1.2-4.9); Lymphocytes Percent Auto 10.4 % (20-40); Mean Corpuscular HGB Conc 32.9 g/dl (31.0-35.0); Mean Platelet Volume 10.1 fL (9.4-12.3); Monocytes Absolute Auto 0.5 X10*3/uL (0.1-1.2); Monocytes Percent Auto 8.2 % (2-11); Neutrophils Absolute Auto 5.1 x10*3/uL (2.0-8.3); Neutrophils Percent Auto 79.4 % (45-73); Platelet Count 251 X10*3/uL (160-400); Red Blood Count 4.72 X10*6/uL (4.20-5.50); Red Cell Distribution Width 14.6 % (11.0-16.0); White Blood Count 6.4 X10*3/uL (4.8-10.8)
[2023-01-08 09:41] LABS: Prothrombin Time 64.6 SEC (11.1-13.3)
[2023-01-08 10:13] LABS: MRSA Nasal PCR NEGATIVE (Negative); SA Nasal PCR NEGATIVE (Negative)
--- NOTE | 2023-01-08 10:24 | PM.DS ---
DS: Providers Provider Date of admission: 01/03/23 06:13 Primary care physician: Kristin Todd MD Consults: 01/03/23 06:10 Consult to Nephrology Routine Consulting Provider: Jorge Luis Julien Reason for consultation: genevieve 01/06/23 07:59 Consult to Gastroenterology Routine Consulting Provider: [facility] Reason for consultation: new onset cirrhosis with ascites DS: Diagnosis Discharge Diagnosis (1) Acute kidney insufficiency: Status: Acute (2) Cirrhosis of liver with ascites: Status: Acute (3) Hepatorenal syndrome: Status: Acute (4) Acute hypoxic respiratory failure: Status: Acute (5) Pneumonia: Status: Acute (6) UTI (urinary tract infection): Status: Acute (7) Morbid obesity: Status: Acute (8) Hyponatremia: Status: Acute (9) Pleural effusion: Status: Acute DS: Summary Hospital Course Hospital Course: From admission H+P by hospitalist Jamal Zendejas MD, 01/03/23: 52F PMH morbid obesity, diet-controlled diabetes, stage IIIB cervical cancer status post radiation chemotherapy complicated by radiation cystitis, extensive lower extremity DVT on Coumadin, schizophrenia, GERD, history of cardiac arrest due to hemorrhagic shock in 2014 presented with abdominal pain. Patient states that her abdominal pain started about 2 days prior to presentation. Social with bloating and abdominal distention, nausea without vomiting, soft stools. Reports subjective fevers, poor p.o. intake. In ED lab significant for acute kidney injury, CT abdomen with cirrhotic liver morphology and moderate volume ascites as well as enteritis. Urine significant for pyuria without bacteriuria. Ms Celis is a 52yo Macedonian-speaking woman with morbid obesity, history of DM2 [diet-controlled with A1c of only 5.2 12/23/22], stage 3B cervical CA s/p XRT/chemo (2014) complicated by radiation cystitis causing hemorrhagic shock leading to cardiac arrest (2014), history of upper and lower extremity DVT [anticoagulated with warfarin], and schizophrenia [on long-acting antipsychotic]. She presented with worsening abdominal distension and discomfort and was found to have acute kidney injury with serum creatinine of 3.69 [compared to 1.55 on 12/23/22 and 1.09 on 11/03/21] and new-onset ascites with cirrhotic liver. Hospital course by problem: Acute kidney injury - Urine sodium was less than 20, consistent with prerenal state. She did not respond to IV crystalloid or colloid resuscitation. We consulted Nephrology [Dr Mandujano]. We suspected hepatorenal syndrome was suspected, so we added midodrine and octreotide. Renal function worsened despite these measures and we reached out to [facility]. Drs Fredo [Hepatology] and Enrico [Hospital Medicine] accepted her for transfer. Cirrhosis with ascites - This is a new diagnosis for her. She had 4.1L of ascites drained on 01/03/23 with albumin administration. Fluid studies were consistent with portal hypertension and there was no evidence of SBP. Due to reaccumulation of ascites causing abdominal and respiratory discomfort, another 5.5L was drained on 01/07/23, again with albumin administration. We consulted Gastroenterology [Dr Andino]. The patient does not drink alcohol. She does not have chronic hepatitis B or C. She does not have iron overload. She most likely has MALDONADO cirrhosis, though complete serologic workup is pending. Acute hypoxic respiratory failure due to pleural effusions and pneumonia - She developed an oxygen requirement on 01/07/23 and required high-flow nasal cannula overnight. Imaging showed small pleural effusions and a patchy bilateral pneumonia. She had been on ceftriaxone for SBP prophylaxis and was switched to piperacillin-tazobactam. PCR for SARS-CoV2, RSV, and influenza was negative. Blood cultures were drawn and are pending at the time of transfer. Also pending are Legionella and pneumococcal urine antigens. She was given IV furosemide and spironolactone for 24 hours. At the time of transfer, her oxygen needs were . Hyponatremia - This is due to cirrhosis. She was fluid-restricted to 1200 mL/d. Bacteruria - GBS was identified in her urine. She was placed on ceftriaxone 01/04-01/07, although this was really more for SBP prophylaxis. As above, swithced to piperacillin-tazobactam. History of DVT - Occult blood from stool on 01/03/23 was negative. Initially the warfarin was continued with 1.6-2.0, but then by 01/07/23, INR increased to 3.2, so warfarin was stopped. For INR of 5.3 on 01/08/23, we gave her oral vitamin K. Time Spent with Patient Time attestation: Total time managing care of this patient today __75__ minutes. Discharge coordination time: Greater than 30 minutes Quality: Safe Use of Opioids Does Pt have an Active Cancer Diagnosis on the Problem List?: No Quality: Stroke Does the patient have a stroke diagnosis?: No Physical Exam Vital Signs: Vital Signs: Last Vital Signs Temp 97.6 F 01/08/23 07:43 Pulse 116 H 01/08/23 07:43 Resp 24 H 01/08/23 09:07 BP 125/84 01/08/23 07:43 Pulse Ox 99 01/08/23 07:43 O2 Del Method High Flow Nasal C annula 01/08/23 07:43 O2 Flow Rate 50 01/08/23 07:43 FiO2 65 01/08/23 07:43 BMI result Body Mass Index 45.0 Gen: in no acute distress but somewhat tachypneic HEENT: sclera anicteric, moist mucus membranes Neck: supple Lungs: diminished air entry at bases bilaterally Heart: regular rate and rhythm, no murmurs Abd: soft, obese, fluid wave + bulging flanks Ext: 2+ nonpitting edema of legs and arms Skin: warm/well-perfused Neuro: alert and oriented x3, no asterixis elicited Psych: appropriate affect DS: Data Data Completed and Pending Completed studies during hospitalization [Text1]: Laboratory Results WBC 6.4 X10*3/uL (4.8-10.8) 01/08/23 08:30 RBC 4.72 X10*6/uL (4.20-5.50) 01/08/23 08:30 Hgb 13.2 g/dl (12.0-16.0) 01/08/23 08:30 Hct 40.1 % (37.0-47.0) 01/08/23 08:30 MCV 85.0 fL (80.0-98.0) 01/08/23 08:30 MCH 28.0 pg (27.0-33.0) 01/08/23 08:30 MCHC 32.9 g/dl (31.0-35.0) 01/08/23 08:30 RDW 14.6 % (11.0-16.0) 01/08/23 08:30 Plt Count 251 X10*3/uL (160-400) 01/08/23 08:30 MPV 10.1 fL (9.4-12.3) 01/08/23 08:30 Immature Gran % (Auto) 0.3 % (0.0-0.4) 01/08/23 08:30 Neut % (Auto) 79.4 % (45-73) H 01/08/23 08:30 Lymph % (Auto) 10.4 % (20-40) L 01/08/23 08:30 Stanley % (Auto) 8.2 % (2-11) 01/08/23 08:30 Eos % (Auto) 1.4 % (0-4) 01/08/23 08:30 Baso % (Auto) 0.3 % (0-2) 01/08/23 08:30 Lymph # (Auto) 0.7 X10*3/uL (1.2-4.9) L 01/08/23 08:30 Stanley # (Auto) 0.5 X10*3/uL (0.1-1.2) 01/08/23 08:30 Eos # (Auto) 0.1 X10*3/uL (0.0-0.4) 01/08/23 08:30 Baso # (Auto) 0.0 X10*3/uL (0.0-0.2) 01/08/23 08:30 Abs Immat Gran (auto) 0.02 X10*3/uL (0.00-0.03) 01/08/23 08:30 Absolute Neuts (auto) 5.1 x10*3/uL (2.0-8.3) 01/08/23 08:30 Absolute Nucleated RBC 0.000 X10*3/uL (0.0-0.012) 01/08/23 08:30 Nucleated RBC % (auto) 0.0 /100WBC (0.0-0.2) 01/08/23 08:30 Hold Purple Top SEE NOTE 01/05/23 06:54 PT 38.9 SEC (11.1-13.3) H D 01/07/23 05:34 INR 3.2 (0.9-1.1) H 01/07/23 05:34 O2 Saturation 98.0 % 01/07/23 15:12 ABG pH at Pt Temp 7.37 (7.35-7.45) 01/07/23 15:12 ABG pCO2 at Pt Temp 40 mmHg (32-45) 01/07/23 15:12 ABG pO2 at Pt Temp 85 mmHg (83-108) 01/07/23 15:12 ABG HCO3 23 mmol/L (22-26) 01/07/23 15:12 ABG Base Excess (Actual) -1.4 mmol/L 01/07/23 15:12 Sodium 129 mmol/L (135-145) L 01/08/23 06:51 Potassium 4.4 mmol/L (3.3-5.1) 01/08/23 06:51 Chloride 95 mmol/L (96-108) L 01/08/23 06:51 Carbon Dioxide 15 mmol/L (22-29) L 01/08/23 06:51 Anion Gap 23 (12-20) H 01/08/23 06:51 BUN 41 mg/dL (9-16) H 01/08/23 06:51 Creatinine 4.04 mg/dL (0.5-1.4) H* 01/08/23 06:51 Estim Creat Clear Calc 19.4 01/08/23 06:51 Estimated GFR 12 01/08/23 06:51 Random Glucose Cancelled 01/08/23 06:51 Fasting Glucose 98 mg/dL (60-99) 01/08/23 06:51 Calcium 10.4 mg/dL (8.4-10.2) H 01/08/23 06:51 Magnesium 2.6 mg/dL (1.6-2.6) 01/08/23 06:51 Iron 36 mcg/dL (30-160) 01/07/23 05:34 TIBC 184 mcg/dL (228-428) L 01/07/23 05:34 % Saturation 20 % (15-50) 01/07/23 05:34 Unsat Iron Binding 148 ug/dL 01/07/23 05:34 Ferritin 152 ng/mL (10-250) 01/07/23 05:34 Total Bilirubin 1.3 mg/dL (0.0-1.0) H 01/08/23 06:51 AST 26 U/L (5-31) 01/08/23 06:51 ALT 9 U/L (0-31) 01/08/23 06:51 Alkaline Phosphatase 78 U/L (39-117) 01/08/23 06:51 Total Protein 8.2 g/dL (6.5-8.0) H 01/08/23 06:51 Albumin 5.5 g/dL (3.5-5.0) H 01/08/23 06:51 Lipase 14 U/L (8-78) 01/03/23 00:33 Procalcitonin 0.09 ng/mL 01/08/23 06:51 Hold Green Top See Note 01/05/23 06:41 Hold Yellow Top Cancelled 01/05/23 06:54 Urine Color Yellow 01/03/23 00:51 Urine Appearance Clear 01/03/23 00:51 Urine pH 6.0 (5.0-9.0) 01/03/23 00:51 Ur Specific Abercrombie <= 1.005 (1.005-1.025) 01/03/23 00:51 Urine Protein Negative mg/dL (Neg-Trace) 01/03/23 00:51 Urine Glucose (UA) Negative mg/dL (Negative) 01/03/23 00:51 Urine Ketones Negative mg/dL (Negative) 01/03/23 00:51 Urine Blood Trace (Negative) H 01/03/23 00:51 Urine Nitrite Negative (Negative) 01/03/23 00:51 Ur Leukocyte Esterase Large (3+) (Negative) H 01/03/23 00:51 Urine RBC 0-2 /HPF (0-2) 01/03/23 00:51 Urine WBC 21-50 /HPF (0-5) H 01/03/23 00:51 Ur Squamous Epith Cells 0-2 /HPF (0-2) 01/03/23 00:51 Urine Bacteria None Seen (None Seen) 01/03/23 00:51 Hyaline Casts 0-2 /LPF (0-2) 01/03/23 00:51 U Random Total Protein < 7 mg/dL (<12) 01/06/23 13:14 Ur Random Sodium < 20.0 mmol/L 01/06/23 13:14 Urine Creatinine 73.54 mg/dL 01/06/23 13:14 Urine Test NEGATIVE (NEGATIVE) 01/03/23 00:51 Peritoneal WBC 0.149 X10*3/uL 01/03/23 10:50 Peritoneal RBC < 0.002 X10*6/uL 01/03/23 10:50 Periton Neutrophils 5 % 01/03/23 10:50 Periton Lymphocytes 2 % 01/03/23 10:50 Peritoneal Monocytes 1 % 01/03/23 10:50 Peritoneal Other Cells 92 % 01/03/23 10:50 Peritoneal Tot Protein 0.5 GM/DL 01/03/23 10:50 Peritoneal Albumin 0.4 GM/DL 01/03/23 10:50 Nasal Screen MRSA (PCR) NEGATIVE (Negative) 01/07/23 21:07 Nasal S. aureus Screen NEGATIVE (Negative) 01/07/23 21:07 Nasal MRSA/S.aureus Interp SEE NOTE 01/07/23 21:07 Stool Occult Blood NEGATIVE (NEGATIVE) 01/03/23 01:13 Hep Bs Antigen Negative (Negative) 01/04/23 15:47 Hep Bs Antibody NONREACTIVE (Nonreactive) 01/04/23 15:47 Hep B Core Total Ab Nonreactive (Nonreactive) 01/04/23 15:47 Hepatitis C Ab (EIA) Nonreactive (Nonreactive) 01/04/23 15:47 Influenza Type A (PCR) NEGATIVE (Negative) 01/07/23 21:07 Influenza Type B (PCR) NEGATIVE (Negative) 01/07/23 21:07 RSV RNA Qual (PCR) NEGATIVE (Negative) 01/07/23 21:07 SARS-CoV-2 RNA (RT-PCR) NEGATIVE (Negative) 01/07/23 21:07 Impressions Abdomen/Pelvis CT 01/03/23 01:58 IMPRESSION: Cirrhotic liver with moderate volume ascites. There is mesenteric infiltration possibly mesenteric edema. There are apparent thickened proximal small bowel loops which may be seen with an enteritis. The lack of oral and IV contrast does limit evaluation. Retained stool. Fleischner guidelines were followed. Abdomen Ultrasound 01/07/23 10:06 IMPRESSION: Heterogeneous liver echotexture. No focal liver lesion. Moderate amount of ascites. Limited visualization of the portal splenic confluence and right and left hepatic arteries otherwise normal liver Doppler exam. Doppler Study Ultrasound 01/07/23 10:06 IMPRESSION: Heterogeneous liver echotexture. No focal liver lesion. Moderate amount of ascites. Limited visualization of the portal splenic confluence and right and left hepatic arteries otherwise normal liver Doppler exam. Paracentesis Ultrasound 01/07/23 11:30 Impression: Ultrasound-guided paracentesis as described above. No immediate complications Chest CT 01/07/23 14:33 IMPRESSION: Bilateral multilobar airspace disease suggestive of pneumonia. Small right pleural effusion. Elevated right hemidiaphragm. Ascites. Fleischner guidelines were followed. Chest X-Ray 01/08/23 09:42 IMPRESSION: * Redemonstration of bilateral patchy airspace opacification bilateral pneumonia unchanged. * Bilateral subpulmonic pleural effusions. Pending studies at discharge: From 01/07/23: Liver fibrosis score SPEP [id number] Ceruloplasmin ROX AMA ASMA SPEP celiac serologies blood cultures x2 From 01/08/23: AFP Legionella and pneumococcal urine antigens Discharge Plan Discharge Anticipated Discharge Date/Time: 01/08/23 16:19 Patient Disposition: Xfer Acute Care Hospital Discharge Diagnosis: acute kidney injury due to hepatorenal syndrome decompensated cirrhosis, likely MALDONADO recurrent ascites hypoxic respiratory failure due to pneumonia and pleural effusion Referrals: Kristin Todd MD [Primary Care Provider] - 1 Week Discharge Medications: New piperacillin-tazobactam 2.25 gram Recon Soln 2.25 g IV Q6H Qty: 1 0RF albumin, human 25 % 25 % parenteral solution 25 g IV Q6H octreotide acetate 100 mcg/mL Solution 200 mcg subcut Q8H Qty: 1 0RF spironolactone 25 mg Tablet 25 mg PO BID@0900,1800 Qty: 1 0RF Protocol: Hold for SBP< HOLD for SBP < : 90 Continued furosemide 40 mg tablet 40 mg PO DAILY benztropine 0.5 mg tablet 0.5 mg PO BID PRN (Reason: pt unsure) citalopram 40 mg tablet 40 mg PO QAM zolpidem 10 mg tablet 10 mg PO BEDTIME PRN (Reason: Insomnia) loratadine 10 mg tablet 10 mg PO DAILY hydroxyzine pamoate 25 mg capsule 25 mg PO TID PRN (Reason: Anxiety) midodrine 10 mg tablet 10 mg PO TID bupropion HCl 200 mg tablet sustained-release 12 hr 200 mg PO BID Risperdal Consta 50 mg/2 mL suspension,extended rel recon 50 mg IM Q2W ondansetron HCl 4 mg tablet 4 mg PO Q8H PRN (Reason: Nausea And Vomiting) Discontinued atorvastatin 40 mg tablet 40 mg PO BEDTIME acetaminophen 500 mg tablet 500 mg PO Q8H PRN (Reason: Pain) warfarin 5 mg tablet 5 mg PO DAILY Hold Instructions: Resume on 01/29/23. hold for INR>3 Diet: Diabetic diet Activity on Discharge: As tolerated Stand Alone Forms: Patient Portal Discharge page Care Plan Goals: evaluation for liver transplant renal recovery Health Concerns: acute kidney injury due to hepatorenal syndrome decompensated cirrhosis, likely MALDONADO recurrent ascites hypoxic respiratory failure due to pneumonia and pleural effusion Plan of Treatment: transfer to [facility] [place] Assessment: See Discharge Summary.
[2023-01-08 10:27] LABS: INTERNATIONAL NORM RATIO 5.3 (0.9-1.1)
[2023-01-08] MEDS: Furosemide 40 MG/4 ML VIAL IVPUSH (10:39)
[2023-01-08] MEDS: Phytonadione (Vit K1) Oral 10 MG/ML AMPUL 2.5 MG PO (10:41)
[2023-01-08 12:50] LABS: B Type Natriuretic Peptide 1044 pg/mL (<100)
--- NOTE | 2023-01-08 13:04 | P.PNIM_ITS ---
Subjective Subjective Date of Service: 01/08/23 Interval History: This history was taken in Irish from the patient. Breathing improved On HFNC, fiO2 40% SCr worsening, now>4 INR climbed to 5.3 Review of Systems Review of Systems: Yes all other systems are reviewed and are negative Physical Exam 2 Vital Signs: Vital Signs: Last Vital Signs Temp 97.7 F 01/08/23 11:38 Pulse 125 H 01/08/23 11:38 Resp 17 01/08/23 11:38 BP 128/90 H 01/08/23 11:38 Pulse Ox 95 01/08/23 11:38 O2 Del Method High Flow Nasal C annula 01/08/23 11:38 O2 Flow Rate 31.8 01/08/23 11:38 FiO2 37.8 01/08/23 11:38 BMI result Body Mass Index 45.0 Gen: in no acute distress HEENT: sclera anicteric, moist mucus membranes Neck: supple Lungs: diminished air entry at bases bilaterally Heart: regular rate and rhythm, no murmurs Abd: soft, obese, fluid wave + bulging flanks Ext: 2+ nonpitting edema of legs and arms Skin: warm/well-perfused Neuro: alert and oriented x3, no asterixis elicited Psych: appropriate affect Objective Data Active Medications Acetaminophen (Acetaminophen 325 Mg Tablet) 650 mg PO Q4H PRN PRN Reason: Pain, Mild (Pain Scale 1-3) Last Admin: 01/08/23 08:37 Dose: 650 mg Documented By: ABRAHAM Bupropion HCl (Bupropion Hcl Xl 150 Mg Tab.Er.24h) 150 mg PO DAILY [facility] Last Admin: 01/08/23 08:37 Dose: 150 mg Documented By: ABRAHAM Escitalopram Oxalate (Escitalopram Oxalate 20 Mg Tablet) 20 mg PO DAILY [facility] Last Admin: 01/08/23 08:37 Dose: 20 mg Documented By: ABRAHAM Hydroxyzine HCl (Hydroxyzine Hcl 25 Mg Tablet) 25 mg PO TID PRN PRN Reason: Anxiety Piperacillin Sod/Tazobactam (Sod 2.25 gm/ Sodium Chloride) 50 mls @ 100 mls/hr IV Q6H [facility] Last Infusion: 01/08/23 10:45 Dose: Infused Documented By: ABRAHAM Loratadine (Loratadine 10 Mg Tablet) 10 mg PO DAILY [facility] Last Admin: 01/08/23 08:37 Dose: 10 mg Documented By: ABRAHAM Midodrine (Midodrine Hcl 5 Mg Tablet) 5 mg PO TID@0800,1300,1800 [facility] Last Admin: 01/08/23 12:54 Dose: 5 mg Documented By: ABRAHAM Morphine Sulfate (Morphine Sulfate 2 Mg/Ml Cartridge) 2 mg IVPUSH Q4H PRN; Protocol PRN Reason: moderate pain Last Admin: 01/07/23 23:41 Dose: 2 mg Documented By: RISSA Octreotide Acetate (Octreotide Acetate 100 Mcg/Ml Ampul) 200 mcg SUBCUT Q8H [facility] Last Admin: 01/08/23 10:40 Dose: 200 mcg Documented By: ABRAHAM Ondansetron HCl (Ondansetron Hcl 4 Mg/2 Ml Vial) 4 mg IVPUSH Q4H PRN PRN Reason: Nausea and Vomiting Last Admin: 01/05/23 20:23 Dose: 4 mg Documented By: CASTILM Senna/Docusate Sodium (Sennosides/Docusate Sodium Tablet) 2 tab PO BID [facility] Last Admin: 01/08/23 08:37 Dose: 2 tab Documented By: ABRAHAM Sodium Chloride (0.9 % Sodium Chloride Flush 3 Ml Syringe) 3 ml IVFLUSH QSHIFT [facility] Last Admin: 01/08/23 12:57 Dose: 3 ml Documented By: ABRAHAM Warfarin Sodium (Warfarin Sodium 5 Mg Tablet) 5 mg PO DAILY@1800 [facility] Last Admin: 01/06/23 18:20 Dose: 5 mg Documented By: SIRISHA Zolpidem Tartrate (Zolpidem Tartrate 5 Mg Tablet) 5 mg PO BEDTIME PRN PRN Reason: Insomnia Last Admin: 01/08/23 00:53 Dose: 5 mg Documented By: RISSA Labs 01/08/23 08:30 01/08/23 06:51 Labs: Laboratory Results - last 24 hr 01/07/23 01/07/23 01/07/23 05:34 15:12 21:07 MCV MCH MCHC RDW Plt Count MPV Immature Gran % (Auto) Neut % (Auto) Lymph % (Auto) Alpine % (Auto) Eos % (Auto) Baso % (Auto) Lymph # (Auto) Alpine # (Auto) Eos # (Auto) Baso # (Auto) Abs Immat Gran (auto) Absolute Neuts (auto) Absolute Nucleated RBC Nucleated RBC % (auto) PT INR O2 Saturation 98.0 ABG pH at Pt Temp 7.37 ABG pCO2 at Pt Temp 40 ABG pO2 at Pt Temp 85 ABG HCO3 23 ABG Base Excess (Actual) -1.4 Anion Gap Estim Creat Clear Calc Estimated GFR Random Glucose Fasting Glucose Calcium Magnesium Total Bilirubin AST ALT Alkaline Phosphatase B-Natriuretic Peptide Total Protein Albumin Procalcitonin 0.04 Nasal Screen MRSA (PCR) NEGATIVE Nasal S. aureus Screen NEGATIVE Nasal MRSA/S.aureus Interp SEE NOTE Influenza Type A (PCR) NEGATIVE Influenza Type B (PCR) NEGATIVE RSV RNA Qual (PCR) NEGATIVE SARS-CoV-2 RNA (RT-PCR) NEGATIVE 01/08/23 01/08/23 06:51 08:30 MCV 85.0 MCH 28.0 MCHC 32.9 RDW 14.6 Plt Count 251 MPV 10.1 Immature Gran % (Auto) 0.3 Neut % (Auto) 79.4 H Lymph % (Auto) 10.4 L Alpine % (Auto) 8.2 Eos % (Auto) 1.4 Baso % (Auto) 0.3 Lymph # (Auto) 0.7 L Alpine # (Auto) 0.5 Eos # (Auto) 0.1 Baso # (Auto) 0.0 Abs Immat Gran (auto) 0.02 Absolute Neuts (auto) 5.1 Absolute Nucleated RBC 0.000 Nucleated RBC % (auto) 0.0 PT 64.6 H D INR 5.3 H* D O2 Saturation ABG pH at Pt Temp ABG pCO2 at Pt Temp ABG pO2 at Pt Temp ABG HCO3 ABG Base Excess (Actual) Anion Gap 23 H Estim Creat Clear Calc 19.4 Estimated GFR 12 Random Glucose Cancelled Fasting Glucose 98 Calcium 10.4 H Magnesium 2.6 Total Bilirubin 1.3 H AST 26 ALT 9 Alkaline Phosphatase 78 B-Natriuretic Peptide 1044 H Total Protein 8.2 H Albumin 5.5 H Procalcitonin 0.09 Nasal Screen MRSA (PCR) Nasal S. aureus Screen Nasal MRSA/S.aureus Interp Influenza Type A (PCR) Influenza Type B (PCR) RSV RNA Qual (PCR) SARS-CoV-2 RNA (RT-PCR) Microbiology Microbiology Results: Microbiology 01/03/23 10:50 Gram Stain - Final Ascites Fluid Anaerobic Culture - Final NO GROWTH AFTER 5 DAYS Body Fluid Culture - Final No growth after 2 days Assessment and Plan (1) Acute kidney insufficiency: Status: Acute (2) UTI (urinary tract infection): Status: Acute Plan d6 52yo F with obesity, DM2 [A1c 5.2 12/23/22], stage 3B cervical CA s/p XRT/chemo complicated by radiation cystitis, hx DVT currently on warfarin, GERD, schizophrenia, hx cardiac arrest due to hemorrhagic shock in 2014 presented with abd pain, admitted for DAVID acute hypoxic respiratory failure - likely due to pleural effusion and pneumonia, wean off HFNC if possible today PNA - d2 pip-jacky today, MRSA swab negative, RSV/Covid/influenza swabs negative, BCx + Legionella/pneumoccal urine antigens pending, trend PCT DAVID, hepatorenal syndrome - continue albumin + midodrine + octreotide - Nephrology following - accepted at [facility] for transplant evaluation but no bed available yet - MELD-Na today 39 cirrhosis with ascites, new diagnosis - 4.1L ascites drained by IR 01/03/23, consistent with portal HTN, no evidence of SBP; repeat tap done 01/07/23 with 5.5L ascites drained - GI consulted, agree with likely MALDONADO cirrhosis; complete serologic workup pending hypoNa - due to cirrhosis; fluid-restrict to 1200 mL/d UTI - GBS in urine, on ceftriaxone 01/04-01/07, switched to pip-jacky for PNA hx LE DVT supratherapeutic INR - will give 2.5mg PO vit K, recheck INR in AM, recheck FOBT (was negative 01/03) schizoaffective disorder - continue hydroxyzine + bupropion + escitalopram; on long-acting risperidone as outpt VTE ppx - warfarin on hold dispo - transfer to [facility] when bed available In my clinical judgment, the patient requires continued inpatient hospitalization for the following reasons: DAVID, HRS Time Spent With Patient Time: Total time managing care of this patient today _50___ minutes. Quality Stroke Does the patient have a stroke diagnosis?: No VTE Prior VTE?: Yes VTE Risk Level:: Medical - moderate - high VTE Device Contraindication: Treatment Not Indicated VTE Drug Contraindication: N/A - Med Ordered
[2023-01-08] MEDS: Morphine Sulfate 2 MG/ML CARTRIDGE IVPUSH ×2 (14:29→22:20)
--- NOTE | 2023-01-08 16:02 | MHC.CM.PN ---
Per MD, pt to transfer to [facility] when bed available for higher level of care/liver transplant.
[2023-01-08] MEDS: hydrOXYzine HCL 25 MG TABLET PO (16:52)
--- NOTE | 2023-01-08 18:32 | PM.PNNEP ---
Subjective Subjective Date of Service: 01/08/23 Interval history: Seen and examined, events noted Physical Exam Vital Signs: Vital Signs: Last Vital Signs Temp 97.6 F 01/08/23 16:00 Pulse 116 H 01/08/23 16:00 Resp 18 01/08/23 16:00 BP 123/73 01/08/23 16:00 Pulse Ox 99 01/08/23 16:00 O2 Del Method Oxymask 01/08/23 16:00 O2 Flow Rate 8 01/08/23 16:00 FiO2 37.8 01/08/23 11:38 BMI result Body Mass Index 45.0 Const: Other: No acute distress Resp: Other: Clear to auscultation bilaterally no rales rhonchi or wheezes Auscultation: clear to auscultation bilaterally Cardio: Other: No S4; positive S1-S2; no S3 murmurs rubs or gallops Rhythm: regular rhythm GI: Other: Obese soft positive bowel sounds. No fluid wave appreciated Palpation (GI): Soft to palpation Extrem: Other: No edema bilaterally Objective Data Labs 01/08/23 08:30 01/08/23 06:51 Labs: Laboratory Results - last 24 hr 01/07/23 01/08/23 01/08/23 21:07 06:51 08:30 WBC 6.4 RBC 4.72 Hgb 13.2 Hct 40.1 MCV 85.0 MCH 28.0 MCHC 32.9 RDW 14.6 Plt Count 251 MPV 10.1 Immature Gran % (Auto) 0.3 Neut % (Auto) 79.4 H Lymph % (Auto) 10.4 L Delta % (Auto) 8.2 Eos % (Auto) 1.4 Baso % (Auto) 0.3 Lymph # (Auto) 0.7 L Delta # (Auto) 0.5 Eos # (Auto) 0.1 Baso # (Auto) 0.0 Abs Immat Gran (auto) 0.02 Absolute Neuts (auto) 5.1 Absolute Nucleated RBC 0.000 Nucleated RBC % (auto) 0.0 PT 64.6 H D INR 5.3 H* D Sodium 129 L Potassium 4.4 Chloride 95 L Carbon Dioxide 15 L Anion Gap 23 H BUN 41 H Creatinine 4.04 H* Estim Creat Clear Calc 19.4 Estimated GFR 12 Random Glucose Cancelled Fasting Glucose 98 Calcium 10.4 H Magnesium 2.6 Total Bilirubin 1.3 H AST 26 ALT 9 Alkaline Phosphatase 78 B-Natriuretic Peptide 1044 H Total Protein 8.2 H Albumin 5.5 H Procalcitonin 0.09 Nasal Screen MRSA (PCR) NEGATIVE Nasal S. aureus Screen NEGATIVE Nasal MRSA/S.aureus Interp SEE NOTE Influenza Type A (PCR) NEGATIVE Influenza Type B (PCR) NEGATIVE RSV RNA Qual (PCR) NEGATIVE SARS-CoV-2 RNA (RT-PCR) NEGATIVE Microbiology Microbiology Results: Microbiology 01/03/23 10:50 Ascites Fluid Gram Stain - Final 01/03/23 10:50 Ascites Fluid Anaerobic Culture - Final NO GROWTH AFTER 5 DAYS 01/03/23 10:50 Ascites Fluid Body Fluid Culture - Final No growth after 2 days 01/03/23 Unknown Urine clean catch - Urine elliott top Urine Culture - Final Strep agalactiae (Grp B) Procedures Date of Service Date of Service: 01/08/23 Assessment & Plan Assessment and plan (1) Acute kidney insufficiency: Status: Acute (2) UTI (urinary tract infection): Status: Acute Plan 52 F PMH morbid obesity, diet-controlled diabetes, stage IIIB cervical cancer status post radiation chemotherapy complicated by radiation cystitis, extensive lower extremity DVT on Coumadin, schizophrenia, GERD, history of cardiac arrest due to hemorrhagic shock in 2014 presented with abdominal pain found to have acute kidney injury and newly dx liver cirrhsois/ascites 1.Acute kidney injury- incr Scr despite ongoing aggressive Tx with cocktail ( IV alb, midrdine and octreotide); no indication for TRAIN ATTENDANT at this time but need to re-eval daily 2. CKD 3B at baseline 3.Crevical cancer/ s/p radiation/ Chemo Ascites 4, UIT 5.Hypoxia: looks like Pneumonia based on imaging studies and not CHF REC: cont midrdine/IV albumin and octreotide and track UOP/renakl func; avoid NToxins; GI eval and given WRF would xferto liver xplant; d/c diuretics; reassess daily for indication for TRAIN ATTENDANT ( no HD ava[facility]ib[facility] at [facility] tomorrow but could do HD Tuesday if needed (would need HD catheter) Will follow clsoley with team Time Spent With Patient Time: Total time managing care of this patient today ____ minutes. Progress Note: Quality Stroke Does the patient have a stroke diagnosis?: No
[2023-01-09] VITALS (7 sets, daily range): BP systolic 97–120; BP diastolic 55–63; PULSE 77–108; RESP 17–20; TEMP 36.4–37.4; O2SAT 96–98
[2023-01-09] MEDS: hydrOXYzine HCL 25 MG TABLET PO (00:07)
[2023-01-09] MEDS: Piperacillin Sodium/Tazobactam 2.25 GM in 0.9 % Sodium Chloride 50 ML IV ×4 (03:35→21:07)
[2023-01-09] MEDS: Octreotide Acetate 100 MCG/ML AMPUL 200 MCG SUBCUT ×2 (03:37→09:25)
--- NOTE | 2023-01-09 05:25 | PC.NURSE ---
ASSUMED CARE OF PT AT 1900. PT IS MALIAN SPEAKING ONLY BUT DAUGHTER STAYING IN ROOM TO HELP TRANSLATE FOR PT. PT IS A&OX3. NO RESP DISTRESS AT REST BUT TACHYPNEIC WITH ACTIVITY SUCH GETTING OOB TO BEDSIDE COMMODE. O2 SATS GOOD 95-100% ON OXYMASK AT 7L. MONITOR SHOWS SINUS TACH, LOW 100'S AT REST AND UP TO 130'S WITH ACTIVITY. FREQUENT URINATION. NOTIFIED MD OF INCREASED RESP EFFORT WHEN GETTING OOB AND FAMILY FLUSHING URINE IN TOILET. CRITICAL NEED FOR STRICT I&O NEEDED SO DRISCOLL WAS ORDERED AND INSERTED WITHOUT COMPLICATION. PT TOLERATED PROCEDURE WELL. 300 ML OF URINE IMMEDIATELY RETURNED. FAMILY IMFORMED OF FLUID RESTRICTION AND TRANSLATED THIS TO PT SO SHE IS AWARE. ABD IS LARGE AND FIRM. SLIGHT DISCOMFORT LEFT SIDE S/P PARACENTESIS. PT RECEIVED MORPHINE WITH GOOD EFFECT. BP STABLE. AFEBRILE. PT C/O UPPER LIP SWELLING. NO TONGUE SWELLING. THIS HAPPENED YESTERDAY TOO PER PT. SHE SAID SHE WAS TOLD IT WAS DUE TO GENERALIZED EDEMA FROM LIVER FAILURE/ASCITES. RECEIVED ATARAX. NO WORSENING OF LIP SWELLING. AMBIEM FOR SLEEP WITH GOOD EFFECT.
[2023-01-09 07:42] LABS: INTERNATIONAL NORM RATIO 1.5 (0.9-1.1); Prothrombin Time 18.8 SEC (11.1-13.3)
[2023-01-09 08:37] LABS: Alanine Aminotransferase 9 U/L (0-31); Albumin Level 4.3 g/dL (3.5-5.0); Alkaline Phosphatase 59 U/L (39-117); Anion Gap 16 (12-20); Aspartate Amino Transferase 16 U/L (5-31); Bilirubin Total 1.8 mg/dL (0.0-1.0); Blood Urea Nitrogen 18 mg/dL (9-16); Calcium 8.9 mg/dL (8.4-10.2); Carbon Dioxide 24 mmol/L (22-29); Chloride 102 mmol/L (96-108); Creatinine Clr Calc Pharmacy 94.5; Estimated Glomerular Filt Rate > 60; Glucose Random 105 mg/dL (60-115); Potassium 3.5 mmol/L (3.3-5.1); Sodium 138 mmol/L (135-145); Total Protein 6.2 g/dL (6.5-8.0)
[2023-01-09 09:00] LABS: Hematocrit 34.6 % (37.0-47.0); Hemoglobin 11.3 g/dl (12.0-16.0); Mean Corpuscular HGB Conc 32.7 g/dl (31.0-35.0); Mean Corpuscular Hemoglobin 28.1 pg (27.0-33.0); Mean Corpuscular Volume 86.1 fL (80.0-98.0); Mean Platelet Volume 9.7 fL (9.4-12.3); Platelet Count 232 X10*3/uL (160-400); Red Blood Count 4.02 X10*6/uL (4.20-5.50); Red Cell Distribution Width 14.5 % (11.0-16.0); White Blood Count 5.5 X10*3/uL (4.8-10.8)
[2023-01-09 09:07] LABS: INTERNATIONAL NORM RATIO 1.5 (0.9-1.1); Prothrombin Time 18.3 SEC (11.1-13.3)
[2023-01-09 09:12] LABS: Anion Gap 16 (12-20); Blood Urea Nitrogen 17 mg/dL (9-16); Calcium 9.1 mg/dL (8.4-10.2); Carbon Dioxide 24 mmol/L (22-29); Chloride 103 mmol/L (96-108); Creatinine Clr Calc Pharmacy 103.2; Estimated Glomerular Filt Rate > 60; Glucose Random 107 mg/dL (60-115); Potassium 3.7 mmol/L (3.3-5.1); Sodium 139 mmol/L (135-145)
[2023-01-09] MEDS: Midodrine HCl 5 MG TABLET PO (09:25)
[2023-01-09] MEDS: Escitalopram Oxalate 20 MG TABLET PO (09:25)
[2023-01-09] MEDS: Sennosides/Docusate Sodium TABLET 2 TAB PO ×2 (09:25→21:06)
[2023-01-09] MEDS: buPROPion HCl XL 150 MG TAB.ER.24H PO (09:25)
[2023-01-09] MEDS: Loratadine 10 MG TABLET PO (09:25)
[2023-01-09] MEDS: 0.9 % Sodium Chloride Flush 3 ML SYRINGE IVFLUSH ×3 (09:26→21:08)
--- NOTE | 2023-01-09 10:38 | P.PNIM_ITS ---
Subjective Subjective Date of Service: 01/09/23 Interval History: Weaned to Oxymask 7L Feels much better SCr normalized- confirmed on repeat draw This history was taken in German from the patient. Review of Systems Review of Systems: Yes all other systems are reviewed and are negative Physical Exam 2 Vital Signs: Vital Signs: Last Vital Signs Temp 98.6 F 01/09/23 08:00 Pulse 100 01/09/23 08:00 Resp 17 01/09/23 08:00 BP 104/55 L 01/09/23 08:00 Pulse Ox 96 01/09/23 08:00 O2 Del Method Oxymask 01/09/23 08:00 O2 Flow Rate 7 01/09/23 08:00 FiO2 37.8 01/08/23 11:38 BMI result Body Mass Index 45.0 Gen: in no acute distress HEENT: sclera anicteric, moist mucus membranes Neck: supple Lungs: diminished air entry at bases bilaterally Heart: regular rate and rhythm, no murmurs Abd: soft, obese, fluid wave + bulging flanks Ext: 2+ nonpitting edema of legs and arms Skin: warm/well-perfused Neuro: alert and oriented x3, no asterixis elicited Psych: appropriate affect Objective Data Active Medications Acetaminophen (Acetaminophen 325 Mg Tablet) 650 mg PO Q4H PRN PRN Reason: Pain, Mild (Pain Scale 1-3) Last Admin: 01/08/23 08:37 Dose: 650 mg Documented By: ABRAHAM Bupropion HCl (Bupropion Hcl Xl 150 Mg Tab.Er.24h) 150 mg PO DAILY [facility] Last Admin: 01/09/23 09:25 Dose: 150 mg Documented By: BING Escitalopram Oxalate (Escitalopram Oxalate 20 Mg Tablet) 20 mg PO DAILY [facility] Last Admin: 01/09/23 09:25 Dose: 20 mg Documented By: BING Hydroxyzine HCl (Hydroxyzine Hcl 25 Mg Tablet) 25 mg PO TID PRN PRN Reason: Anxiety Last Admin: 01/09/23 00:07 Dose: 25 mg Documented By: PRATIMA Piperacillin Sod/Tazobactam (Sod 2.25 gm/ Sodium Chloride) 50 mls @ 100 mls/hr IV Q6H [facility] Last Infusion: 01/09/23 10:31 Dose: Infused Documented By: BING Loratadine (Loratadine 10 Mg Tablet) 10 mg PO DAILY [facility] Last Admin: 01/09/23 09:25 Dose: 10 mg Documented By: BING Midodrine (Midodrine Hcl 5 Mg Tablet) 5 mg PO TID@0800,1300,1800 [facility] Last Admin: 01/09/23 09:25 Dose: 5 mg Documented By: BING Morphine Sulfate (Morphine Sulfate 2 Mg/Ml Cartridge) 2 mg IVPUSH Q4H PRN; Protocol PRN Reason: moderate pain Last Admin: 01/08/23 22:20 Dose: 2 mg Documented By: PRATIMA Octreotide Acetate (Octreotide Acetate 100 Mcg/Ml Ampul) 200 mcg SUBCUT Q8H [facility] Last Admin: 01/09/23 09:25 Dose: 200 mcg Documented By: BING Ondansetron HCl (Ondansetron Hcl 4 Mg/2 Ml Vial) 4 mg IVPUSH Q4H PRN PRN Reason: Nausea and Vomiting Last Admin: 01/05/23 20:23 Dose: 4 mg Documented By: KLEBER Senna/Docusate Sodium (Sennosides/Docusate Sodium Tablet) 2 tab PO BID [facility] Last Admin: 01/09/23 09:25 Dose: 2 tab Documented By: BING Sodium Chloride (0.9 % Sodium Chloride Flush 3 Ml Syringe) 3 ml IVFLUSH QSHIFT [facility] Last Admin: 01/09/23 09:26 Dose: 3 ml Documented By: BING Warfarin Sodium (Warfarin Sodium 5 Mg Tablet) 5 mg PO DAILY@1800 [facility] Last Admin: 01/06/23 18:20 Dose: 5 mg Documented By: SIRISHA Zolpidem Tartrate (Zolpidem Tartrate 5 Mg Tablet) 5 mg PO BEDTIME PRN PRN Reason: Insomnia Last Admin: 01/08/23 23:42 Dose: 5 mg Documented By: PRATIMA Labs 01/09/23 08:54 01/09/23 08:54 Labs: Laboratory Results - last 24 hr 01/08/23 01/09/23 01/09/23 08:30 07:14 08:54 MCV 86.1 MCH 28.1 MCHC 32.7 RDW 14.5 Plt Count 232 MPV 9.7 Absolute Nucleated RBC 0.000 Nucleated RBC % (auto) 0.0 PT 18.8 H D 18.3 H INR 1.5 H D 1.5 H Anion Gap 16 16 Estim Creat Clear Calc 94.5 103.2 Estimated GFR > 60 > 60 Random Glucose 105 107 Calcium 8.9 D 9.1 Total Bilirubin 1.8 H AST 16 ALT 9 Alkaline Phosphatase 59 B-Natriuretic Peptide 1044 H Total Protein 6.2 L Albumin 4.3 Microbiology Microbiology Results: Microbiology 01/08/23 06:51 Blood Culture - Preliminary Blood - Venous No growth after 24 hours. 01/03/23 10:50 Gram Stain - Final Ascites Fluid Anaerobic Culture - Final NO GROWTH AFTER 5 DAYS Body Fluid Culture - Final No growth after 2 days Assessment and Plan (1) Acute kidney insufficiency: Status: Acute (2) UTI (urinary tract infection): Status: Acute Plan d7 52yo F with obesity, DM2 [A1c 5.2 12/23/22], stage 3B cervical CA s/p XRT/chemo complicated by radiation cystitis, hx DVT currently on warfarin, GERD, schizophrenia, hx cardiac arrest due to hemorrhagic shock in 2014 presented with abd pain, admitted for DAVID acute hypoxic respiratory failure - likely due to pleural effusion and pneumonia, wean oxygen as tolerated PNA - d3 pip-jacky today, MRSA swab negative, RSV/Covid/influenza swabs negative, BCx + Legionella/pneumoccal urine antigens pending, trend PCT DAVID, hepatorenal syndrome - has made rapid renal recovery - d/c albumin, decrease midodrine + octreotide - Nephrology following - was accepted at [facility] for transplant evaluation but urgent inpatient transfer no longer needed and can have outpt transplant evaluation cirrhosis with ascites, new diagnosis - 4.1L ascites drained by IR 01/03/23, consistent with portal HTN, no evidence of SBP; repeat tap done 01/07/23 with 5.5L ascites drained - GI consulted, agree with likely MALDONADO cirrhosis; complete serologic workup pending - start diuretics: furosemide + spironolactone hypoNa - due to cirrhosis; resolved; will release fluid restriction UTI - GBS in urine, on ceftriaxone 01/04-01/07, switched to pip-jacky for PNA hx LE DVT supratherapeutic INR - given vit K 01/08/23, INR now <2, resume warfarin schizoaffective disorder - continue hydroxyzine + bupropion + escitalopram; on long-acting risperidone as outpt VTE ppx - warfarin dispo - PT consult In my clinical judgment, the patient requires continued inpatient hospitalization for the following reasons: hypoxia Time Spent With Patient Time: Total time managing care of this patient today ___55 minutes. Quality Stroke Does the patient have a stroke diagnosis?: No VTE Prior VTE?: Yes VTE Risk Level:: Medical - moderate - high VTE Device Contraindication: Treatment Not Indicated VTE Drug Contraindication: N/A - Med Ordered
[2023-01-09] MEDS: Midodrine HCl 2.5 MG TABLET PO ×2 (12:10→17:23)
--- NOTE | 2023-01-09 15:06 | P.PNNP_ITS ---
Subjective Subjective Date of Service: 01/09/23 Interval history: Seen and examied, events noted Repeat labs show dramatic rapid renal recovery in past 24 hrs that seems timely related to francisco being placed last night BUT u/s and CT did not show hydro Physical Exam 2 Vital Signs: Vital Signs: Last Vital Signs Temp 98.4 F 01/09/23 11:49 Pulse 108 H 01/09/23 11:49 Resp 17 01/09/23 11:49 BP 110/63 01/09/23 11:49 Pulse Ox 96 01/09/23 11:49 O2 Del Method Nasal Cannula 01/09/23 11:49 O2 Flow Rate 7 01/09/23 11:49 FiO2 37.8 01/08/23 11:38 BMI result Body Mass Index 45.0 Const: Other: No acute distress Resp: Other: Clear to auscultation bilaterally no rales rhonchi or wheezes Auscultation: clear to auscultation bilaterally Cardio: Other: No S4; positive S1-S2; no S3 murmurs rubs or gallops Rhythm: regular rhythm GI: Other: Obese soft positive bowel sounds. No fluid wave appreciated Palpation (GI): Soft to palpation Extrem: Other: No edema bilaterally Objective Data Labs 01/09/23 08:54 01/09/23 08:54 Labs: Laboratory Results - last 24 hr 01/09/23 01/09/23 07:14 08:54 WBC 5.5 RBC 4.02 L Hgb 11.3 L Hct 34.6 L MCV 86.1 MCH 28.1 MCHC 32.7 RDW 14.5 Plt Count 232 MPV 9.7 Absolute Nucleated RBC 0.000 Nucleated RBC % (auto) 0.0 PT 18.8 H D 18.3 H INR 1.5 H D 1.5 H Sodium 138 139 Potassium 3.5 D 3.7 Chloride 102 103 Carbon Dioxide 24 24 Anion Gap 16 16 BUN 18 H 17 H Creatinine 0.83 0.76 Estim Creat Clear Calc 94.5 103.2 Estimated GFR > 60 > 60 Random Glucose 105 107 Calcium 8.9 D 9.1 Total Bilirubin 1.8 H AST 16 ALT 9 Alkaline Phosphatase 59 Total Protein 6.2 L Albumin 4.3 Microbiology Microbiology Results: Microbiology 01/08/23 08:30 Blood - Venous Blood Culture - Preliminary No growth after 24 hours. 01/08/23 06:51 Blood - Venous Blood Culture - Preliminary No growth after 24 hours. 01/03/23 10:50 Ascites Fluid Gram Stain - Final 01/03/23 10:50 Ascites Fluid Anaerobic Culture - Final NO GROWTH AFTER 5 DAYS 01/03/23 10:50 Ascites Fluid Body Fluid Culture - Final No growth after 2 days 01/03/23 Unknown Urine clean catch - Urine leliott top Urine Culture - Final Strep agalactiae (Grp B) Procedures Date of Service Date of Service: 01/09/23 Assessment & Plan Assessment and plan (1) Acute kidney insufficiency: Status: Acute (2) UTI (urinary tract infection): Status: Acute Plan 52 F PMH morbid obesity, diet-controlled diabetes, stage IIIB cervical cancer status post radiation chemotherapy complicated by radiation cystitis, extensive lower extremity DVT on Coumadin, schizophrenia, GERD, history of cardiac arrest due to hemorrhagic shock in 2014 presented with abdominal pain found to have acute kidney injury and newly dx liver cirrhsois/ascites 1.Acute kidney injury- resolved; not completely clear what caused the rapidrenal recovery;could it beUrretention w/o hydro 2. CKD ? now it appears does not have CKD 3.Crevical cancer/ s/p radiation/ Chemo Ascites 4, UIT 5.Hypoxia: looks like Pneumonia based on imaging studies and not CHF REC: agreewith r/s diuretics; d/c octreotide; d/calbumin today and midrdine tomoorow;track UOP/renakl func; avoid NToxins will followw team Time Spent With Patient Time: Total time managing care of this patient today ____ minutes. Progress Note: Quality Stroke Does the patient have a stroke diagnosis?: No
[2023-01-09] MEDS: Spironolactone 25 MG TABLET PO (17:23)
[2023-01-09] MEDS: Furosemide 20 MG TABLET PO (17:23)
[2023-01-09] MEDS: Octreotide Acetate 100 MCG/ML AMPUL SUBCUT (19:33)
[2023-01-10] VITALS (7 sets, daily range): BP systolic 90–114; BP diastolic 50–78; PULSE 80–94; RESP 17–20; TEMP 36.3–37.3; O2SAT 96–98
[2023-01-10] MEDS: hydrOXYzine HCL 25 MG TABLET PO (00:24)
[2023-01-10] MEDS: Zolpidem Tartrate 5 MG TABLET PO ×2 (00:24→21:55)
--- NOTE | 2023-01-10 02:58 | PC.NURSE ---
CARE ASSUMED 19:15...AWAKE...MAINLY SPANIS SPEAKING..DAUGHTER AT BEDSIDE...ALERT..ORIENTED X3...RESPIRATIONS EASY...O2 CANNULA 4-5 L/M...SAO2 DECREASED TO 85-87% AT HS...RETURNED TO O2 7 L/M MASK WITH IMPROVED SAO2 TO 95-97%...DRISCOLL YELLOW URINE...HS SENNA GIVEN AND OOB TO BR AND PASSED BROWN FORM STOOL....ABDOMEN REMAINS DISTENED BUT SOFT..OLD PARACENTESIS DRESSING TO LLQ DRY/INTACT....AMBIEN AND ATARX AT PER REQUEST FOR SLEEP...CURRENTLY [facility] CALLED FOR UPDATE... CADEN STATED PATIENT HAS BEEN ACCEPTED FOR TRANSFER PENDING AVAILABILITY OF MEDICAL BED...SHE REQUESTS AND GI OR UPDATES OR CONSULTS TO BE FAXED TO
[2023-01-10] MEDS: Octreotide Acetate 100 MCG/ML AMPUL SUBCUT (03:50)
[2023-01-10] MEDS: Piperacillin Sodium/Tazobactam 2.25 GM in 0.9 % Sodium Chloride 50 ML IV ×4 (04:06→21:55)
--- NOTE | 2023-01-10 07:00 | CA_ITS ---
Transthoracic Echocardiogram Patient (Last, First, Middle): Emilee Celis, Gender: Female Date of : 1970 Age: 52 Procedure Date: 01/10/2023 Procedure Type: Transthoracic Echocardiogram [place] [facility] [place]: 157.48 cm Weight: 111.59 kg BSA: 2.09 m2 Heart Rate: 80 bpm BP: 99 / 58 mmHg Central Supply Supervisor: Referring MD: Meme Garcia MD Symptoms: elevate BNP Study Quality: Adequate ECG Rhythm: Sinus Conclusions: - The left ventricular systolic function is normal. The visually estimated ejection fraction is between 55-60%. - No obvious valvular pathology seen on this study. Findings Left Ventricle Normal left ventricular cavity size. There is normal left ventricular wall thickness. The left ventricular systolic function is normal. The visually estimated ejection fraction is between 55-60%. There is no evidence of regional wall motion abnormalities. Diastolic function is normal for age. Right Ventricle Mildly increased right ventricular cavity size. There is normal right ventricular systolic function. Atria Both atria are normal in size. Aortic Valve There is a normal trileaflet aortic valve. There is no aortic valve stenosis. There is no aortic valve regurgitation. Mitral Valve The mitral valve appears normal. There is trace mitral valve regurgitation. There is no mitral valve stenosis. Pulmonic Valve The pulmonic valve is likely normal. Tricuspid Valve Normal tricuspid valve structure. There is trace tricuspid valve regurgitation. There is no evidence of pulmonary hypertension. Great Vessels The asc aorta is normal in size. Venous The inferior vena cava is normal in size and collapses less than 50% with inspiration. Pericardium/Pleural There is a trivial pericardial effusion. Prior Study Comparison No prior study available for comparison. Recommendations, Care & Conclusions No obvious valvular pathology seen on this study. Measurements 2D Linear Measurements IVSd: 0.92 0.6-0.9/0.6-1.0 cm LVIDd: 4.89 3.9-5.3/4.2-5.9 cm LVIDd Index: 2.34 2.4-3.2/2.2-3.1 cm/m2 LVIDs: 3.26 2.0-3.6 cm LVPWd: 1.01 0.7-1.1 cm LA Diam: 4.00 2.7-3.8/3.0-4.0 cm LAIDs Index: 1.91 1.5-2.3 cm/m2 LV Mass: 208.15 67-162/88-224 g LV Mass Index: 99.59 43-95/49-115 g/m2 LVOT Diam: 2.10 3.0+(-)1.3 cm Mitral Valve MV Pk E: 0.74 MV PK A: 0.69 MV Decel Time: 120.00 E/A: 1.10 E'Lateral: 5.00 E'Medial: 6.85 E/E' Med: 10.80 E/E' Lat: 14.70 PHT: 35.00 MVA PHT: 6.29 Decel [place]: 6.13 Aortic Valve AoV Pk David: 0.88 AoV Mn David: 0.61 AoV VTI: 0.21 AoV Pk Grad: 3.00 Aov Mn Grad: 2.00 LAURA Cont.VTI: 2.21 LVOT LVOT Pk David: 0.63 LVOT Mn David: 0.40 LVOT VTI: 0.13 LVOT Pk Grad: 2.00 LVOT Mn Grad: 1.00 LVOT Diam: 2.10 LVOT Area: 3.46 Diastolic Function MV Pk E: 0.74 MV Pk A: 0.69 E/A: 1.10 E'Medial: 6.85 E/E' Med: 10.80 E' Laterial: 5.00 E/E' Lat: 14.70 Right Ventricle TAPSE (mm): 34.70 TVS' David: 15.90 Tricuspid Valve TR Pk David: 1.75 TR Pk Grad: 12.00 RA Press: 3.00 RVSP: 15.00 Great Vessels Aorta Sinus of Valsalva: 2.80 2.0-3.5 cm Ao Asc: 3.30 2.1-3.4 cm Pulmonary Valve PV Pk David: 0.96 Peak PV Grad: 4.00 Updated in Other Vendor System with Status of Final Segundo Alston MD electronically signed on 01/10/2023 2:44:15 PM with status of Final
[2023-01-10 08:04] LABS: Hematocrit 32.5 % (37.0-47.0); Hemoglobin 10.6 g/dl (12.0-16.0); Mean Corpuscular HGB Conc 32.6 g/dl (31.0-35.0); Mean Corpuscular Hemoglobin 28.6 pg (27.0-33.0); Mean Corpuscular Volume 87.8 fL (80.0-98.0); Mean Platelet Volume 10.3 fL (9.4-12.3); Platelet Count 253 X10*3/uL (160-400); Red Cell Distribution Width 14.9 % (11.0-16.0); White Blood Count 5.5 X10*3/uL (4.8-10.8)
[2023-01-10 08:08] LABS: INTERNATIONAL NORM RATIO 1.3 (0.9-1.1); Prothrombin Time 16.2 SEC (11.1-13.3)
[2023-01-10] MEDS: buPROPion HCl XL 150 MG TAB.ER.24H PO (08:44)
[2023-01-10] MEDS: Sennosides/Docusate Sodium TABLET 2 TAB PO (08:44)
[2023-01-10] MEDS: Midodrine HCl 2.5 MG TABLET PO (08:45)
[2023-01-10] MEDS: Escitalopram Oxalate 20 MG TABLET PO (08:45)
[2023-01-10] MEDS: Loratadine 10 MG TABLET PO (08:45)
[2023-01-10] MEDS: 0.9 % Sodium Chloride Flush 3 ML SYRINGE IVFLUSH ×3 (08:45→21:56)
[2023-01-10 08:56] LABS: Alanine Aminotransferase 8 U/L (0-31); Albumin Level 3.9 g/dL (3.5-5.0); Alkaline Phosphatase 58 U/L (39-117); Anion Gap 12 (12-20); Aspartate Amino Transferase 15 U/L (5-31); Bilirubin Total 1.1 mg/dL (0.0-1.0); Blood Urea Nitrogen 10 mg/dL (9-16); Calcium 8.6 mg/dL (8.4-10.2); Carbon Dioxide 32 mmol/L (22-29); Chloride 99 mmol/L (96-108); Creatinine Clr Calc Pharmacy 130.7; Estimated Glomerular Filt Rate > 60; Glucose Random 121 mg/dL (60-115); Magnesium 2.1 mg/dL (1.6-2.6); Potassium 3.3 mmol/L (3.3-5.1); Sodium 140 mmol/L (135-145); Total Protein 5.8 g/dL (6.5-8.0)
[2023-01-10 10:45] LABS: Procalcitonin 0.05 ng/mL
--- NOTE | 2023-01-10 10:48 | MHC.CM.PN ---
EMR reviewed. Per MD rounds pt is not medically cleared for DC at this time. No longer requiring transfer to [facility]. PT eval pending. CM will continue to follow.
[2023-01-10] MEDS: Midodrine HCl 5 MG TABLET PO ×2 (12:05→17:40)
[2023-01-10 12:33] LABS: Immunoglobulin A 86 mg/dL (47-310)
[2023-01-10 12:38] LABS: Alpha Fetoprotein 1.7 ng/mL
--- NOTE | 2023-01-10 13:07 | P.PNIM_ITS ---
Subjective Subjective Date of Service: 01/10/23 Interval History: This history was taken in Pashto from the patient. Dyspnea improving No longer tachycardic No abd discomfort Review of Systems Review of Systems: Yes all other systems are reviewed and are negative Physical Exam 2 Vital Signs: Vital Signs: Last Vital Signs Temp 98.4 F 01/10/23 11:18 Pulse 87 01/10/23 11:18 Resp 20 01/10/23 11:18 BP 102/52 L 01/10/23 11:18 Pulse Ox 98 01/10/23 11:18 O2 Del Method Oxymask 01/10/23 11:18 O2 Flow Rate 5 01/10/23 11:18 FiO2 37.8 01/08/23 11:38 BMI result Body Mass Index 45.0 Gen: in no acute distress HEENT: sclera anicteric, moist mucus membranes Neck: supple Lungs: diminished air entry at bases bilaterally Heart: regular rate and rhythm, no murmurs Abd: soft, obese, fluid wave + bulging flanks Ext: 1+ nonpitting edema of legs and arms Skin: warm/well-perfused Neuro: alert and oriented x3, no asterixis elicited Psych: appropriate affect Objective Data Active Medications Acetaminophen (Acetaminophen 325 Mg Tablet) 650 mg PO Q4H PRN PRN Reason: Pain, Mild (Pain Scale 1-3) Last Admin: 01/08/23 08:37 Dose: 650 mg Documented By: ABRAHAM Bupropion HCl (Bupropion Hcl Xl 150 Mg Tab.Er.24h) 150 mg PO DAILY [facility] Last Admin: 01/10/23 08:44 Dose: 150 mg Documented By: JOSHUA Escitalopram Oxalate (Escitalopram Oxalate 20 Mg Tablet) 20 mg PO DAILY [facility] Last Admin: 01/10/23 08:45 Dose: 20 mg Documented By: JOSHUA Furosemide (Furosemide 20 Mg Tablet) 20 mg PO BID@0900,1800 [facility]; Protocol Last Admin: 01/10/23 08:44 Dose: Not Given Documented By: JOSHUA Non-Admin Reason: Decreased Blood Pressure Hydroxyzine HCl (Hydroxyzine Hcl 25 Mg Tablet) 25 mg PO TID PRN PRN Reason: Anxiety Last Admin: 01/10/23 00:24 Dose: 25 mg Documented By: LEXA Piperacillin Sod/Tazobactam (Sod 2.25 gm/ Sodium Chloride) 50 mls @ 100 mls/hr IV Q6H [facility] Last Infusion: 01/10/23 11:44 Dose: Infused Documented By: JOSHUA Loratadine (Loratadine 10 Mg Tablet) 10 mg PO DAILY [facility] Last Admin: 01/10/23 08:45 Dose: 10 mg Documented By: JOSHUA Midodrine (Midodrine Hcl 5 Mg Tablet) 5 mg PO TID@0800,1300,1800 [facility] Last Admin: 01/10/23 12:05 Dose: 5 mg Documented By: JOSHUA Morphine Sulfate (Morphine Sulfate 2 Mg/Ml Cartridge) 2 mg IVPUSH Q4H PRN; Protocol PRN Reason: moderate pain Last Admin: 01/08/23 22:20 Dose: 2 mg Documented By: PRATIMA Ondansetron HCl (Ondansetron Hcl 4 Mg/2 Ml Vial) 4 mg IVPUSH Q4H PRN PRN Reason: Nausea and Vomiting Last Admin: 01/05/23 20:23 Dose: 4 mg Documented By: CASTNEGIN Senna/Docusate Sodium (Sennosides/Docusate Sodium Tablet) 2 tab PO BID [facility] Last Admin: 01/10/23 08:44 Dose: 2 tab Documented By: JOSHUA Sodium Chloride (0.9 % Sodium Chloride Flush 3 Ml Syringe) 3 ml IVFLUSH QSHIFT [facility] Last Admin: 01/10/23 08:45 Dose: 3 ml Documented By: JOSHUA Spironolactone (Spironolactone 25 Mg Tablet) 25 mg PO BID@0900,1800 [facility]; Protocol Last Admin: 01/10/23 08:44 Dose: Not Given Documented By: JOSHUA Non-Admin Reason: Decreased Blood Pressure Warfarin Sodium (Warfarin Sodium 5 Mg Tablet) 5 mg PO DAILY@1800 [facility] Last Admin: 01/06/23 18:20 Dose: 5 mg Documented By: SIRISHA Zolpidem Tartrate (Zolpidem Tartrate 5 Mg Tablet) 5 mg PO BEDTIME PRN PRN Reason: Insomnia Last Admin: 01/10/23 00:24 Dose: 5 mg Documented By: LEXA Labs 01/10/23 07:30 01/10/23 07:30 Labs: Laboratory Results - last 24 hr 01/07/23 01/08/23 01/10/23 05:34 06:51 07:30 MCV 87.8 MCH 28.6 MCHC 32.6 RDW 14.9 Plt Count 253 MPV 10.3 Absolute Nucleated RBC 0.000 Nucleated RBC % (auto) 0.0 PT 16.2 H INR 1.3 H Anion Gap 12 Estim Creat Clear Calc 130.7 Estimated GFR > 60 Random Glucose 121 H Calcium 8.6 Magnesium 2.1 Total Bilirubin 1.1 H AST 15 ALT 8 Alkaline Phosphatase 58 Total Protein 5.8 L Albumin 3.9 Alpha Fetoprotein 1.7 Procalcitonin 0.05 IgA 86 Microbiology Microbiology Results: Microbiology 01/08/23 08:30 Blood Culture - Preliminary Blood - Venous No growth after 48 hours. 01/08/23 06:51 Blood Culture - Preliminary Blood - Venous No growth after 48 hours. Assessment and Plan (1) Acute kidney insufficiency: Status: Acute (2) UTI (urinary tract infection): Status: Acute Plan d8 52yo F with obesity, DM2 [A1c 5.2 12/23/22], stage 3B cervical CA s/p XRT/chemo complicated by radiation cystitis, hx DVT currently on warfarin, GERD, schizophrenia, hx cardiac arrest due to hemorrhagic shock in 2014 presented with abd pain, admitted for DAVID acute hypoxic respiratory failure - likely due to pleural effusion and pneumonia, wean oxygen as tolerated (currently on 5L via Oxymask) PNA - pip-jacky 01/07-. MRSA swab negative, RSV/Covid/influenza swabs negative, BCx negative, PCT low, Legionella/pneumoccal urine antigens pending DAVID, hepatorenal syndrome - has made a remarkable rapid renal recovery - off albumin. stop octreotide. on midodrine- was taking as outpatient- ?indication - Nephrology following - [place] [facility] [place] but urgent inpatient transfer no longer needed and can have outpt transplant evaluation cirrhosis with ascites, new diagnosis - 4.1L ascites drained by IR 01/03/23, consistent with portal HTN, no evidence of SBP; repeat tap done 01/07/23 with 5.5L ascites drained - GI consulted, agree with likely MALDONADO cirrhosis; complete serologic workup pending - started diuretics 01/09: furosemide + spironolactone hypoNa - due to cirrhosis; resolved; released fluid restriction UTI - GBS in urine, on ceftriaxone 01/04-01/07, switched to pip-jacky for PNA hx LE DVT supratherapeutic INR - given vit K 01/08/23, INR now <2, resume warfarin schizoaffective disorder - continue hydroxyzine + bupropion + escitalopram; on long-acting risperidone as outpt VTE ppx - warfarin dispo - PT consulted: plan home with VNA In my clinical judgment, the patient requires continued inpatient hospitalization for the following reasons: hypoxia Time Spent With Patient Time: Total time managing care of this patient today __40__ minutes. Quality Stroke Does the patient have a stroke diagnosis?: No VTE Prior VTE?: Yes VTE Risk Level:: Medical - moderate - high VTE Device Contraindication: Treatment Not Indicated VTE Drug Contraindication: N/A - Med Ordered
[2023-01-10 13:14] LABS: Prot Elec - Albumin 5.2 g/dL (3.8-4.8); Prot Elec - Alpha1 0.4 g/dL (0.2-0.3); Prot Elec - Alpha2 0.9 g/dL (0.5-0.9); Prot Elec - Beta 1 0.3 g/dL (0.4-0.6); Prot Elec - Beta 2 0.3 g/dL (0.2-0.5); Prot Elec - Gamma 0.7 g/dL (0.8-1.7); Prot Elec - Total Protein 7.8 g/dL (6.1-8.1)
[2023-01-10 13:44] LABS: Ceruloplasmin 33 mg/dL (18-53)
[2023-01-10 13:52] LABS: Alpha 1 Anti-trypsin 166 mg/dL (83-199)
[2023-01-10 14:33] LABS: Mitochondrial Antibodies NEGATIVE (NEGATIVE)
[2023-01-10 15:23] LABS: Anti Nuclear Antibody Screen NEGATIVE (NEGATIVE)
[2023-01-10] MEDS: Spironolactone 25 MG TABLET PO (17:40)
[2023-01-10] MEDS: Warfarin Sodium 5 MG TABLET PO (17:40)
[2023-01-10] MEDS: Furosemide 20 MG TABLET PO (17:40)
[2023-01-11 03:26] VITALS: BP 105/52; PULSE 62; RESP 18; TEMP 37; O2SAT 96
[2023-01-11] MEDS: Piperacillin Sodium/Tazobactam 2.25 GM in 0.9 % Sodium Chloride 50 ML IV ×2 (05:47→08:26)
[2023-01-11 07:23] VITALS: BP 98/56; PULSE 72; RESP 20; TEMP 36.9; O2SAT 97
[2023-01-11 07:40] LABS: Hematocrit 33.1 % (37.0-47.0); Hemoglobin 10.4 g/dl (12.0-16.0); Mean Corpuscular HGB Conc 31.4 g/dl (31.0-35.0); Mean Corpuscular Hemoglobin 27.8 pg (27.0-33.0); Mean Corpuscular Volume 88.5 fL (80.0-98.0); Mean Platelet Volume 10.1 fL (9.4-12.3); Platelet Count 273 X10*3/uL (160-400); Red Blood Count 3.74 X10*6/uL (4.20-5.50); Red Cell Distribution Width 15.1 % (11.0-16.0); White Blood Count 4.4 X10*3/uL (4.8-10.8)
[2023-01-11 07:41] LABS: Glucose, Whole Blood 102 mg/dL (60-115)
[2023-01-11 07:50] LABS: INTERNATIONAL NORM RATIO 1.2 (0.9-1.1); Prothrombin Time 15.1 SEC (11.1-13.3)
[2023-01-11 07:56] LABS: Alanine Aminotransferase 10 U/L (0-31); Albumin Level 3.7 g/dL (3.5-5.0); Alkaline Phosphatase 63 U/L (39-117); Anion Gap 14 (12-20); Aspartate Amino Transferase 17 U/L (5-31); Bilirubin Total 0.7 mg/dL (0.0-1.0); Blood Urea Nitrogen 9 mg/dL (9-16); Calcium 8.5 mg/dL (8.4-10.2); Carbon Dioxide 30 mmol/L (22-29); Chloride 101 mmol/L (96-108); Creatinine Clr Calc Pharmacy 130.7; Estimated Glomerular Filt Rate > 60; Glucose Random 97 mg/dL (60-115); Magnesium 2.1 mg/dL (1.6-2.6); Potassium 3.3 mmol/L (3.3-5.1); Sodium 142 mmol/L (135-145); Total Protein 5.7 g/dL (6.5-8.0)
[2023-01-11] MEDS: Midodrine HCl 5 MG TABLET PO ×2 (08:26→12:13)
[2023-01-11] MEDS: buPROPion HCl XL 150 MG TAB.ER.24H PO (08:26)
[2023-01-11] MEDS: Sennosides/Docusate Sodium TABLET 2 TAB PO (08:26)
[2023-01-11] MEDS: Loratadine 10 MG TABLET PO (08:26)
[2023-01-11] MEDS: Escitalopram Oxalate 20 MG TABLET PO (08:26)
[2023-01-11] MEDS: 0.9 % Sodium Chloride Flush 3 ML SYRINGE IVFLUSH (08:27)
[2023-01-11 10:56] VITALS: PULSE 112; PULSE 76; O2SAT 94; O2SAT 95
--- NOTE | 2023-01-11 11:12 | PC.NURSE ---
DRISCOLL CATHETER TAKEN OUT PER MD ORDERS AT 10:36 ON 01/11/23. PT DUE TO VOID BY 16:36 ON 01/11/23
[2023-01-11 11:31] VITALS: BP 94/54; PULSE 88; RESP 20; TEMP 36.9; O2SAT 96
[2023-01-11 11:40] VITALS: BP 94/54; PULSE 88; O2SAT 96
--- NOTE | 2023-01-11 13:36 | P.DS_ITS ---
DS: Providers Provider Date of Service: 01/11/23 Date of admission: 01/03/23 06:13 Date of discharge: 01/11/23 Primary care physician: Kristin Todd MD Consults: 01/03/23 06:10 Consult to Nephrology Routine Consulting Provider: Jorge Luis Julien Reason for consultation: genevieve 01/06/23 07:59 Consult to Gastroenterology Routine Consulting Provider: [facility] Reason for consultation: new onset cirrhosis with ascites DS: Diagnosis Discharge Diagnosis (1) Acute kidney insufficiency: Status: Acute (2) UTI (urinary tract infection): Status: Acute (3) Pleural effusion: Status: Acute (4) Acute hypoxic respiratory failure: Status: Acute (5) Cirrhosis of liver with ascites: Status: Acute (6) Hyponatremia: Status: Acute (7) Pneumonia: Status: Acute DS: Summary Hospital Course Hospital Course: From admission H+P by hospitalist Jamal Zendejas MD, 01/03/23: 52F PMH morbid obesity, diet-controlled diabetes, stage IIIB cervical cancer status post radiation chemotherapy complicated by radiation cystitis, extensive lower extremity DVT on Coumadin, schizophrenia, GERD, history of cardiac arrest due to hemorrhagic shock in 2014 presented with abdominal pain. Patient states that her abdominal pain started about 2 days prior to presentation. Social with bloating and abdominal distention, nausea without vomiting, soft stools. Reports subjective fevers, poor p.o. intake. In ED lab significant for acute kidney injury, CT abdomen with cirrhotic liver morphology and moderate volume ascites as well as enteritis. Urine significant for pyuria without bacteriuria. Ms Celis is a 52yo Danish-speaking woman with morbid obesity, history of DM2 [diet-controlled with A1c of only 5.2 12/23/22], stage 3B cervical CA s/p XRT/chemo (2014) complicated by radiation cystitis causing hemorrhagic shock leading to cardiac arrest (2014), history of upper and lower extremity DVT [anticoagulated with warfarin], and schizophrenia [on long-acting antipsychotic]. She presented with worsening abdominal distension and discomfort and was found to have acute kidney injury with serum creatinine of 3.69 [compared to 1.55 on 12/23/22 and 1.09 on 11/03/21] and new-onset ascites with cirrhotic liver. Hospital course by problem: Acute kidney injury - Urine sodium was less than 20, consistent with prerenal state versus hepatorenal syndrome. We consulted Nephrology [Dr Mandujano]. We gave colloid resuscitation and added midodrine and octreotide. Renal function worsened despite these measures and we reached out to [facility] and [facility] for urgent liver transplant evaluation. She was accepted at both institutions pending bed availability. On 01/09/23, her renal function recovered rapidly to her normal baseline [from a peak creatinine of 4.04 to 0.83, literally within 24 hours] and this was maintained for 3 subsequent days. We canceled the urgent transfer. She will be seen on an outpatient basis by [facility]'s liver transplant program. Cirrhosis with ascites - This is a new diagnosis for her. She had 4.1L of ascites drained on 01/03/23 with albumin administration. Fluid studies were consistent with portal hypertension and there was no evidence of SBP. Due to reaccumulation of ascites causing abdominal and respiratory discomfort, another 5.5L was drained on 01/07/23, again with albumin administration. We consulted Gastroenterology [Dr Andino]. The patient does not drink alcohol. She does not have chronic hepatitis B or C. She does not have iron overload. She most likely has MALDONADO cirrhosis, though complete serologic workup is pending. Once her renal function recovered, she was started on furosemide and spironolactone. She was also instructed to limit sodium to 1500 mg/d. She will follow up with Gastroenterology [Dr Andino] in 2 weeks in addition to Transplant Hepatology as above. Acute hypoxic respiratory failure due to pleural effusions and pneumonia - She developed an oxygen requirement on 01/07/23 and required high-flow nasal cannula overnight. Imaging showed small pleural effusions and a patchy bilateral pneumonia. She had been on ceftriaxone for SBP prophylaxis and was switched to piperacillin-tazobactam for 4 days. PCR for SARS-CoV2, RSV, and influenza was negative. Blood cultures were drawn and were negative. She was weaned off oxygen and did not require it at rest or with ambulation. She was discharged on 3 days of amoxicillin-clavulanate. Hyponatremia - This is due to cirrhosis. She was fluid-restricted to 1200 mL/d. Once her renal function recovered, her sodium normalized as well and her fluid restriction was released. Bacteruria - GBS was identified in her urine. She was placed on ceftriaxone 01/04-01/07, although this was really more for SBP prophylaxis. As above, switched to piperacillin-tazobactam, then amoxiclllin-clavulanate. History of DVT [2020] - Occult blood from stool on 01/03/23 was negative. Initially the warfarin was continued with 1.6-2.0, but then by 01/07/23, INR increased to 3.2, so warfarin was stopped. For INR of 5.3 on 01/08/23, we gave her oral vitamin K. Warfarin was resumed and on the day of discharge, her INR was 1.2. She was discharged home with VNA services. She will need a lab draw on 01/14/23 [PT/INR, CBCd, CMP], Primary Care and Gastroenterology follow-up, and outpatient Transplant Hepatology evaluation. Time Spent with Patient Time attestation: Total time managing care of this patient today __55__ minutes. Discharge coordination time: Greater than 30 minutes Quality: Safe Use of Opioids Does Pt have an Active Cancer Diagnosis on the Problem List?: No Quality: Stroke Does the patient have a stroke diagnosis?: No Physical Exam Vital Signs: Vital Signs: Last Vital Signs Temp 98.5 F 01/11/23 11:31 Pulse 88 01/11/23 11:31 Resp 20 01/11/23 11:31 BP 94/54 L 01/11/23 11:31 Pulse Ox 96 01/11/23 11:31 O2 Del Method Room Air 01/11/23 11:31 O2 Flow Rate 2 01/11/23 07:23 FiO2 37.8 01/08/23 11:38 BMI result Body Mass Index 45.0 Gen: in no acute distress HEENT: sclera anicteric, moist mucus membranes Neck: supple Lungs: clear to auscultation bilaterally Heart: regular rate and rhythm, no murmurs Abd: soft, non-tense ascites, obese Ext: 1+ BLE edema Skin: warm/well-perfused Neuro: alert and oriented x3, no asterixis Psych: appropriate affect DS: Data Data Completed and Pending Completed studies during hospitalization [Text1]: Laboratory Results WBC 4.4 X10*3/uL (4.8-10.8) L 01/11/23 07:02 RBC 3.74 X10*6/uL (4.20-5.50) L 01/11/23 07:02 Hgb 10.4 g/dl (12.0-16.0) L 01/11/23 07:02 Hct 33.1 % (37.0-47.0) L 01/11/23 07:02 MCV 88.5 fL (80.0-98.0) 01/11/23 07:02 MCH 27.8 pg (27.0-33.0) 01/11/23 07:02 MCHC 31.4 g/dl (31.0-35.0) 01/11/23 07:02 RDW 15.1 % (11.0-16.0) 01/11/23 07:02 Plt Count 273 X10*3/uL (160-400) 01/11/23 07:02 MPV 10.1 fL (9.4-12.3) 01/11/23 07:02 Immature Gran % (Auto) 0.3 % (0.0-0.4) 01/08/23 08:30 Neut % (Auto) 79.4 % (45-73) H 01/08/23 08:30 Lymph % (Auto) 10.4 % (20-40) L 01/08/23 08:30 Evangeline % (Auto) 8.2 % (2-11) 01/08/23 08:30 Eos % (Auto) 1.4 % (0-4) 01/08/23 08:30 Baso % (Auto) 0.3 % (0-2) 01/08/23 08:30 Lymph # (Auto) 0.7 X10*3/uL (1.2-4.9) L 01/08/23 08:30 Evangeline # (Auto) 0.5 X10*3/uL (0.1-1.2) 01/08/23 08:30 Eos # (Auto) 0.1 X10*3/uL (0.0-0.4) 01/08/23 08:30 Baso # (Auto) 0.0 X10*3/uL (0.0-0.2) 01/08/23 08:30 Abs Immat Gran (auto) 0.02 X10*3/uL (0.00-0.03) 01/08/23 08:30 Absolute Neuts (auto) 5.1 x10*3/uL (2.0-8.3) 01/08/23 08:30 Absolute Nucleated RBC 0.000 X10*3/uL (0.0-0.012) 01/11/23 07:02 Nucleated RBC % (auto) 0.0 /100WBC (0.0-0.2) 01/11/23 07:02 Hold Purple Top SEE NOTE 01/05/23 06:54 PT 15.1 SEC (11.1-13.3) H 01/11/23 07:02 INR 1.2 (0.9-1.1) H 01/11/23 07:02 O2 Saturation 98.0 % 01/07/23 15:12 ABG pH at Pt Temp 7.37 (7.35-7.45) 01/07/23 15:12 ABG pCO2 at Pt Temp 40 mmHg (32-45) 01/07/23 15:12 ABG pO2 at Pt Temp 85 mmHg (83-108) 01/07/23 15:12 ABG HCO3 23 mmol/L (22-26) 01/07/23 15:12 ABG Base Excess (Actual) -1.4 mmol/L 01/07/23 15:12 Sodium 142 mmol/L (135-145) 01/11/23 07:02 Potassium 3.3 mmol/L (3.3-5.1) 01/11/23 07:02 Chloride 101 mmol/L (96-108) 01/11/23 07:02 Carbon Dioxide 30 mmol/L (22-29) H 01/11/23 07:02 Anion Gap 14 (12-20) 01/11/23 07:02 BUN 9 mg/dL (9-16) 01/11/23 07:02 Creatinine 0.60 mg/dL (0.5-1.4) 01/11/23 07:02 Estim Creat Clear Calc 130.7 01/11/23 07:02 Estimated GFR > 60 01/11/23 07:02 POC Glucose 102 mg/dL (60-115) 01/11/23 07:16 Random Glucose 97 mg/dL (60-115) 01/11/23 07:02 Fasting Glucose 98 mg/dL (60-99) 01/08/23 06:51 Calcium 8.5 mg/dL (8.4-10.2) 01/11/23 07:02 Magnesium 2.1 mg/dL (1.6-2.6) 01/11/23 07:02 Iron 36 mcg/dL (30-160) 01/07/23 05:34 TIBC 184 mcg/dL (228-428) L 01/07/23 05:34 % Saturation 20 % (15-50) 01/07/23 05:34 Unsat Iron Binding 148 ug/dL 01/07/23 05:34 Ferritin 152 ng/mL (10-250) 01/07/23 05:34 Total Bilirubin 0.7 mg/dL (0.0-1.0) 01/11/23 07:02 AST 17 U/L (5-31) 01/11/23 07:02 ALT 10 U/L (0-31) 01/11/23 07:02 Alkaline Phosphatase 63 U/L (39-117) 01/11/23 07:02 B-Natriuretic Peptide 1044 pg/mL (<100) H 01/08/23 08:30 Total Protein 5.7 g/dL (6.5-8.0) L 01/11/23 07:02 Total Protein (PEP) 7.8 g/dL (6.1-8.1) 01/07/23 05:34 Albumin 3.7 g/dL (3.5-5.0) 01/11/23 07:02 Albumin (PEP) 5.2 g/dL (3.8-4.8) H 01/07/23 05:34 Tojtt-8-Xculgaeob 0.4 g/dL (0.2-0.3) H 01/07/23 05:34 Nqnsc-1-Sxttuhlsf 0.9 g/dL (0.5-0.9) 01/07/23 05:34 Zrup-6-Eqdlxsfx 0.3 g/dL (0.4-0.6) L 01/07/23 05:34 Ofae-4-Snpajndu 0.3 g/dL (0.2-0.5) 01/07/23 05:34 Gamma Globulins 0.7 g/dL (0.8-1.7) L 01/07/23 05:34 PEP Interpretation SEE NOTE 01/07/23 05:34 Zampr-4-Cbgliuatzvg 166 mg/dL (83-199) 01/07/23 05:34 Ceruloplasmin 33 mg/dL (18-53) 01/07/23 05:34 Lipase 14 U/L (8-78) 01/03/23 00:33 Alpha Fetoprotein 1.7 ng/mL 01/08/23 06:51 Procalcitonin 0.05 ng/mL 01/10/23 07:30 Hold Green Top See Note 01/05/23 06:41 Hold Yellow Top Cancelled 01/05/23 06:54 Urine Color Yellow 01/03/23 00:51 Urine Appearance Clear 01/03/23 00:51 Urine pH 6.0 (5.0-9.0) 01/03/23 00:51 Ur Specific [place] <= 1.005 (1.005-1.025) 01/03/23 00:51 Urine Protein Negative mg/dL (Neg-Trace) 01/03/23 00:51 Urine Glucose (UA) Negative mg/dL (Negative) 01/03/23 00:51 Urine Ketones Negative mg/dL (Negative) 01/03/23 00:51 Urine Blood Trace (Negative) H 01/03/23 00:51 Urine Nitrite Negative (Negative) 01/03/23 00:51 Ur Leukocyte Esterase Large (3+) (Negative) H 01/03/23 00:51 Urine RBC 0-2 /HPF (0-2) 01/03/23 00:51 Urine WBC 21-50 /HPF (0-5) H 01/03/23 00:51 Ur Squamous Epith Cells 0-2 /HPF (0-2) 01/03/23 00:51 Urine Bacteria None Seen (None Seen) 01/03/23 00:51 Hyaline Casts 0-2 /LPF (0-2) 01/03/23 00:51 U Random Total Protein < 7 mg/dL (<12) 01/06/23 13:14 Ur Random Sodium < 20.0 mmol/L 01/06/23 13:14 Urine Creatinine 73.54 mg/dL 01/06/23 13:14 Urine Test NEGATIVE (NEGATIVE) 01/03/23 00:51 Peritoneal WBC 0.149 X10*3/uL 01/03/23 10:50 Peritoneal RBC < 0.002 X10*6/uL 01/03/23 10:50 Periton Neutrophils 5 % 01/03/23 10:50 Periton Lymphocytes 2 % 01/03/23 10:50 Peritoneal Monocytes 1 % 01/03/23 10:50 Peritoneal Other Cells 92 % 01/03/23 10:50 Peritoneal Tot Protein 0.5 GM/DL 01/03/23 10:50 Peritoneal Albumin 0.4 GM/DL 01/03/23 10:50 Nasal Screen MRSA (PCR) NEGATIVE (Negative) 01/07/23 21:07 Nasal S. aureus Screen NEGATIVE (Negative) 01/07/23 21:07 Nasal MRSA/S.aureus Interp SEE NOTE 01/07/23 21:07 Stool Occult Blood NEGATIVE (NEGATIVE) 01/03/23 01:13 IgA 86 mg/dL (47-310) 01/07/23 05:34 ROX Screen NEGATIVE (NEGATIVE) 01/07/23 05:34 ROX Titer TNP 01/07/23 05:34 ROX Titer 2 TNP 01/07/23 05:34 ROX Titer 3 TNP 01/07/23 05:34 ROX Pattern TNP 01/07/23 05:34 ROX Pattern 2 TNP 01/07/23 05:34 ROX Pattern 3 TNP 01/07/23 05:34 Anti-Mitochondrial Ab NEGATIVE (NEGATIVE) 01/07/23 05:34 Hep Bs Antigen Negative (Negative) 01/04/23 15:47 Hep Bs Antibody NONREACTIVE (Nonreactive) 01/04/23 15:47 Hep B Core Total Ab Nonreactive (Nonreactive) 01/04/23 15:47 Hepatitis C Ab (EIA) Nonreactive (Nonreactive) 01/04/23 15:47 Influenza Type A (PCR) NEGATIVE (Negative) 01/07/23 21:07 Influenza Type B (PCR) NEGATIVE (Negative) 01/07/23 21:07 RSV RNA Qual (PCR) NEGATIVE (Negative) 01/07/23 21:07 SARS-CoV-2 RNA (RT-PCR) NEGATIVE (Negative) 01/07/23 21:07 Impressions Abdomen/Pelvis CT 01/03/23 01:58 IMPRESSION: Cirrhotic liver with moderate volume ascites. There is mesenteric infiltration possibly mesenteric edema. There are apparent thickened proximal small bowel loops which may be seen with an enteritis. The lack of oral and IV contrast does limit evaluation. Retained stool. Fleischner guidelines were followed. Abdomen Ultrasound 01/07/23 10:06 IMPRESSION: Heterogeneous liver echotexture. No focal liver lesion. Moderate amount of ascites. Limited visualization of the portal splenic confluence and right and left hepatic arteries otherwise normal liver Doppler exam. Doppler Study Ultrasound 01/07/23 10:06 IMPRESSION: Heterogeneous liver echotexture. No focal liver lesion. Moderate amount of ascites. Limited visualization of the portal splenic confluence and right and left hepatic arteries otherwise normal liver Doppler exam. Paracentesis Ultrasound 01/07/23 11:30 Impression: Ultrasound-guided paracentesis as described above. No immediate complications Chest CT 01/07/23 14:33 IMPRESSION: Bilateral multilobar airspace disease suggestive of pneumonia. Small right pleural effusion. Elevated right hemidiaphragm. Ascites. Fleischner guidelines were followed. Chest X-Ray 01/08/23 09:42 IMPRESSION: * Redemonstration of bilateral patchy airspace opacification bilateral pneumonia unchanged. * Bilateral subpulmonic pleural effusions. TTE 01/10/23 - The left ventricular systolic function is normal. The visually estimated ejection fraction is between 55-60%. - No obvious valvular pathology seen on this study. Discharge Plan Discharge Anticipated Discharge Date/Time: 01/08/23 16:19 Patient Disposition: er Acute Care Hospital Discharge Diagnosis: acute kidney injury due to hepatorenal syndrome decompensated cirrhosis, likely MALDONADO recurrent ascites hypoxic respiratory failure due to pneumonia and pleural effusion Referrals: [facility] [Outside] - 3-5 Days (Resume [facility] and nursing services, start physical therapy services. [facility] will contact you to schedule. ) Kristin Todd MD [Primary Care Provider] - 1 Week Felipe Andino MD [Physician] - 2 Weeks Discharge Medications: New spironolactone 25 mg Tablet 25 mg PO BID@0900,1800 Qty: 1 0RF Protocol: Hold for SBP< HOLD for SBP < : 90 spironolactone 25 mg Tablet 25 mg PO BID@0900,1800 Qty: 60 0RF Protocol: Hold for SBP< HOLD for SBP < : 90 warfarin [Jantoven] 5 mg Tablet 5 mg PO DAILY@1800 Qty: 30 0RF furosemide 20 mg Tablet 20 mg PO BID@0900,1800 Qty: 60 0RF Protocol: Hold for SBP< HOLD for SBP < : 90 amoxicillin-pot clavulanate 875-125 mg tablet 1 tab PO BID Qty: 6 0RF Continued furosemide 40 mg tablet 40 mg PO DAILY benztropine 0.5 mg tablet 0.5 mg PO BID PRN (Reason: pt unsure) citalopram 40 mg tablet 40 mg PO QAM zolpidem 10 mg tablet 10 mg PO BEDTIME PRN (Reason: Insomnia) loratadine 10 mg tablet 10 mg PO DAILY hydroxyzine pamoate 25 mg capsule 25 mg PO TID PRN (Reason: Anxiety) midodrine 10 mg tablet 10 mg PO TID bupropion HCl 200 mg tablet sustained-release 12 hr 200 mg PO BID Risperdal Consta 50 mg/2 mL suspension,extended rel recon 50 mg IM Q2W ondansetron HCl 4 mg tablet 4 mg PO Q8H PRN (Reason: Nausea And Vomiting) Discontinued atorvastatin 40 mg tablet 40 mg PO BEDTIME acetaminophen 500 mg tablet 500 mg PO Q8H PRN (Reason: Pain) warfarin 5 mg tablet 5 mg PO DAILY Hold Instructions: Resume on 01/29/23. hold for INR>3 Discharge Orders: Discharge Order (Routine); Ordered 01/11/23 Ordered By: Meme Garcia Diet: Diabetic diet Activity on Discharge: As tolerated Stand Alone Forms: Patient Portal Discharge page Other Ambulatory Orders: Complete Blood Count Auto Diff (Routine) Timeframe: 20230114 Facility: [facility] - Location: Laboratory Ordered By: Meme Garcia Comprehensive Met. Panel (Routine) Timeframe: 20230114 Facility: [facility] - Location: Laboratory Ordered By: Meme Garcia Prothrombin Time INR (Routine) Timeframe: 20230114 Facility: [facility] - Location: Laboratory Ordered By: Meme Garcia Care Plan Goals: recovery from pneumonia liver health Health Concerns: acute kidney injury, resolved decompensated cirrhosis, likely MALDONADO, with recurrent ascites hypoxic respiratory failure due to pneumonia and pleural effusion, resolved Plan of Treatment: take amoxicillin-clavulanate 875-125 mg twice daily for 3 more days You have been referred to the [facility] Trans[facility] at [facility]. They will contact you within 1 week for an appointment. Follow up with [facility] as well, within 1-2 weeks. Limit sodium to 1500 mg/d. Take spironolactone 25 mg twice daily plus furosemide 20 mg twice daily. If you have recurrent tense ascites, Gastroenterology can arrange outpatient paracentesis. Continue midodrine 10 mg 3x a day. Continue warfarin 5 mg daily. Recheck labs on 01/14/23: PT/INR, CMP, CBC Please follow up with your primary care doctor within 1 week. Return to the hospital if you experience recurrent or worsening symptoms. Assessment: See Discharge Summary.
--- NOTE | 2023-01-11 13:43 | MHC.CM.PN ---
EMR reviewed. Per MD rounds patient is medically cleared for dc. 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 Elara updated via [employer] and able to provide services. Son will transport home around 3pm. Reviewed with patient utilizing interpreter deaf. Patient verbalized understanding.
--- NOTE | 2023-01-11 13:45 | P.F2F_ITS ---
Service Date Service Date: 01/11/23 Encounter Date of encounter: 01/11/23 Reasons for Services Signs and symptoms assessed: Gross Deconditioning, Impaired Gait Pattern,Muscle Weakness,Pain Reason for long term: monitoring of PT/INR, medication management, medication treatment, teach disease management and other (lab monitoring- needs lab draw 01/14/23) Reason for physical therapy: home safety and mobility, therapeutic exercises, gait/transfer training, assess need for DME, ADL training and energy conservation Overseeing Care: Kristin Todd Homebound: Leaving the home is medically contraindicated at this time without the asist of a device and/or another person due th the listed conditions above and below. Reason homebound: unsteady gait / fall risk and weakness related to hospital stay Homebound supporting statement: Transfer Training,Gait Training, Therapeutic Activities, Therapeutic Exercise, Patient Education, Safety,Balance Certification: Based on the above findings, I certify that this patient is confined to the home and needs intermittent long term care, physical therapy and/or speech therapy, or continues to need occupational therapy. The patient is under my care, and I have initiated the establishment of the plan of care. The patient will be followed by a physician who will periodically review the plan of care. Time Spent With Patient Time: Total time managing care of this patient today ____ minutes.
[2023-01-12 06:09] LABS: Strep Pneumo Ag urine Not Detected (Not Detected)
[2023-01-13 03:28] LABS: Legionella Ag Urine Not Detected (Not Detected)
[2023-01-13 12:12] LABS: Smooth Muscle Antibody <20 U (<20)
[2023-01-13 17:53] LABS: Transglutaminase Ab IgG <1.0 U/mL; Transglutaminase IgA <1.0 U/mL
[2023-01-14 17:43] LABS: FIB-ALT 8 U/L (6-29); FIB-Alpha-2-Macroglobulin 133 mg/dL (106-279); FIB-Apolipoprotein A1 106 mg/dL (101-198); FIB-GGT 13 U/L (3-70); FIB-Haptoglobin 302 mg/dL (43-212); FIB-Total Bilirubin 0.6 mg/dL (0.2-1.2); Liver Fibrosis Score 0.07; Liver Fibrosis Stage F0; Nec Inflam Act Grade A0; Nec Inflam Act Score 0.01
== END 2023-01-11 15:49 | disposition home health service (06) ==
LOC: HO.ED 01-03 06:05 → HO.EDOVER 01-03 06:23 → HO.S3 01-03 09:03 → HO.IMC 01-07 15:56
PROVIDERS: Hospitalist; Internal Medicine Gastroenterology; Internal Medicine Nephrology; Admitting Provider Internal Medicine; Emergency Provider Emergency Medicine; PCP Pediatrics; Visit Provider Family Medicine
DX: K74.69 Other cirrhosis of liver (principal); J96.01 Acute respiratory failure with hypoxia; N17.0 Acute kidney failure with tubular necrosis; K76.7 Hepatorenal syndrome; J18.9 Pneumonia, unspecified organism; K76.6 Portal hypertension; R18.8 Other ascites; E87.1 Hypo-osmolality and hyponatremia; F20.9 Schizophrenia, unspecified; E66.01 Morbid (severe) obesity due to excess calories; K75.81 Nonalcoholic steatohepatitis (NASH); C53.9 Malignant neoplasm of cervix uteri, unspecified; Z68.42 Body mass index [BMI] 45.0-49.9, adult; K21.9 Gastro-esophageal reflux disease without esophagitis; N39.0 Urinary tract infection, site not specified; B95.1 Streptococcus, group B, as the cause of diseases classified elsewhere; N18.32 Chronic kidney disease, stage 3b; E11.22 Type 2 diabetes mellitus with diabetic chronic kidney disease; Z86.718 Personal history of other venous thrombosis and embolism; Z20.822 Contact with and (suspected) exposure to COVID-19; Z86.74 Personal history of sudden cardiac arrest; Z79.01 Long term (current) use of anticoagulants; Z79.899 Other long term (current) drug therapy
CPT/HCPCS: 0241U; 36415; 36600; 49083; 71045; 71250; 74176; 76700; 80048; 80053; 81001; 81025; 81596; 82042; 82103; 82105; 82272; 82390; 82570; 82728; 82784; 82803; 82947; 83540; 83690; 83735; 83880; 84145; 84156; 84157; 84165; 84300; 85025; 85027; 85610; 86015; 86038; 86364; 86381; 86704; 86706; 86803; 87040; 87070; 87073; 87086; 87147; 87205; 87340; 87449; 87640; 87641; 87899; 89051; 93005; 93306; 93975; 97116; 97161; 99285; C1729; C1758; J0696; J1940; J2270; J2354; J2405; J2543; P9047; Q9957

== ENCOUNTER 2023-01-03 06:13 | Outpatient (BNV) | payer MEDICAID, SELFPAY | END 2023-01-07 10:45 | PROVIDERS: Admitting Provider Internal Medicine; Emergency Provider Emergency Medicine; PCP Pediatrics; Visit Provider Radiology Diagnostic Radiology | DX: R18.8 Other ascites (principal) | CPT/HCPCS: 49083 ==

== ENCOUNTER 2023-01-03 06:13 | Outpatient (BNV) | payer MEDICAID, SELFPAY | END 2023-01-10 07:00 | PROVIDERS: Admitting Provider Internal Medicine; Emergency Provider Emergency Medicine; PCP Pediatrics; Visit Provider Internal Medicine | DX: R00.0 Tachycardia, unspecified (principal); R94.31 Abnormal electrocardiogram [ECG] [EKG] | CPT/HCPCS: 93306 ==

== ENCOUNTER 2023-01-03 06:13 | Outpatient (BNV) | payer MEDICAID, SELFPAY | END 2023-01-03 10:14 | PROVIDERS: Admitting Provider Internal Medicine; Emergency Provider Emergency Medicine; PCP Pediatrics; Visit Provider Radiology Diagnostic Radiology | DX: R18.8 Other ascites (principal) | CPT/HCPCS: 49083 ==

== ENCOUNTER → 2023-01-03 06:13 | Outpatient (BNV) | payer MEDICAID, SELFPAY | PROVIDERS: Admitting Provider Internal Medicine; Emergency Provider Emergency Medicine; PCP Pediatrics; Visit Provider Internal Medicine Gastroenterology | DX: K74.60 Unspecified cirrhosis of liver (principal); R18.8 Other ascites | CPT/HCPCS: 99223 ==

== ENCOUNTER → 2023-01-03 06:13 | Outpatient (BNV) | payer MEDICAID, SELFPAY | PROVIDERS: Admitting Provider Internal Medicine; Emergency Provider Emergency Medicine; PCP Pediatrics; Visit Provider Internal Medicine | DX: N28.9 Disorder of kidney and ureter, unspecified (principal); N39.0 Urinary tract infection, site not specified; J90 Pleural effusion, not elsewhere classified; J96.01 Acute respiratory failure with hypoxia; K74.60 Unspecified cirrhosis of liver; R18.8 Other ascites; E87.1 Hypo-osmolality and hyponatremia; J18.9 Pneumonia, unspecified organism | CPT/HCPCS: 99223; 99232; 99233; 99239; G0180 ==

== ENCOUNTER 2023-01-27 13:02 | Outpatient (REF) | payer MEDICAID, SELFPAY ==
--- NOTE | ~2023-01-27 | CT_ITS ---
STUDY: IV contrast-enhanced CT of the chest and abdomen INDICATION: Cirrhosis/MALDONADO COMPARISON: 01/07/2023 TECHNIQUE: Continuous helical imaging obtained through the chest and abdomen following injection of 85 mL Omnipaque 350 IV contrast without adverse effect. This CT examination was performed using dose optimization techniques as appropriate, variously including the following: *Automated exposure control *Adjustment of mA and/or kV according to patient size (this includes techniques or standardized protocols for targeted exams where dose is matched to indication/reason for exam; i.e. extremities or head) *Use of iterative reconstruction technique TOTAL EXAM DLP: 179 mGy-cm FINDINGS: MEDICAL LEAD: Herniorrhaphy material and embolization coils. Elevated right hemidiaphragm. CHEST: Airways and lungs: Trachea and bronchi are patent. Patchy pulmonary opacities and previous study have resolved. No suspicious lung lesions. No consolidations or groundglass opacities. Mediastinum: Unremarkable thyroid. Mildly dilated esophagus. No pathologic lymphadenopathy. Prominent heart. No pericardial effusion. Degree of coronary calcifications: None. Nonaneurysmal aorta with patency of the branch vessels. Ectatic pulmonary arteries with no filling defects to suggest pulmonary thromboembolism. Pleura: No effusions, pneumothoraces, thickening or masses. Bones, soft tissues and axilla: Mild dextroscoliosis. No suspicious osseous lesions. ABDOMEN: Hepatobiliary: Enlarged heterogeneously fatty liver. No liver lesions, intra or extrahepatic biliary ductal dilatation. Unremarkable gallbladder. Spleen, adrenal glands and kidneys within normal limits. Gastrointestinal: Under distended stomach. Nonobstructive bowel pattern. Moderate fecal retention. Vessels: Nonaneurysmal aorta. Slightly reduced caliber inferior vena cava. Prominent left renal pelvic vessels/collaterals. Multiple left-sided soft tissue collateral vessels with embolization coils left flank musculature. Lymph nodes: No pathologic lymphadenopathy. Peritoneum: Resolution of previous ascites. 4.6 x 2.1 cm left retroperitoneal fluid collection with thickened and partially calcified sheth. Abdominal wall: Herniorrhaphy material with bulging rectus diastasis containing small large bowel. Bones and soft tissues: Lower lumbar facet hypertrophic changes. Left flank soft tissue collaterals and embolization coils. CT/CT abdomen wo/w IV con IMPRESSION: Resolution bilateral pneumonias, right pleural effusion and ascites. Enlarged fatty liver. 4.6 cm left retroperitoneal fluid collection, left flank soft tissue venous collaterals and left flank embolization coils.
--- NOTE | ~2023-01-27 | CT_ITS ---
STUDY: IV contrast-enhanced CT of the chest and abdomen INDICATION: Cirrhosis/MALDONADO COMPARISON: 01/07/2023 TECHNIQUE: Continuous helical imaging obtained through the chest and abdomen following injection of 85 mL Omnipaque 350 IV contrast without adverse effect. This CT examination was performed using dose optimization techniques as appropriate, variously including the following: *Automated exposure control *Adjustment of mA and/or kV according to patient size (this includes techniques or standardized protocols for targeted exams where dose is matched to indication/reason for exam; i.e. extremities or head) *Use of iterative reconstruction technique TOTAL EXAM DLP: 179 mGy-cm FINDINGS: STAFF DEVELOPMENT COORDINATOR RN: Herniorrhaphy material and embolization coils. Elevated right hemidiaphragm. CHEST: Airways and lungs: Trachea and bronchi are patent. Patchy pulmonary opacities and previous study have resolved. No suspicious lung lesions. No consolidations or groundglass opacities. Mediastinum: Unremarkable thyroid. Mildly dilated esophagus. No pathologic lymphadenopathy. Prominent heart. No pericardial effusion. Degree of coronary calcifications: None. Nonaneurysmal aorta with patency of the branch vessels. Ectatic pulmonary arteries with no filling defects to suggest pulmonary thromboembolism. Pleura: No effusions, pneumothoraces, thickening or masses. Bones, soft tissues and axilla: Mild dextroscoliosis. No suspicious osseous lesions. ABDOMEN: Hepatobiliary: Enlarged heterogeneously fatty liver. No liver lesions, intra or extrahepatic biliary ductal dilatation. Unremarkable gallbladder. Spleen, adrenal glands and kidneys within normal limits. Gastrointestinal: Under distended stomach. Nonobstructive bowel pattern. Moderate fecal retention. Vessels: Nonaneurysmal aorta. Slightly reduced caliber inferior vena cava. Prominent left renal pelvic vessels/collaterals. Multiple left-sided soft tissue collateral vessels with embolization coils left flank musculature. Lymph nodes: No pathologic lymphadenopathy. Peritoneum: Resolution of previous ascites. 4.6 x 2.1 cm left retroperitoneal fluid collection with thickened and partially calcified sheth. Abdominal wall: Herniorrhaphy material with bulging rectus diastasis containing small large bowel. Bones and soft tissues: Lower lumbar facet hypertrophic changes. Left flank soft tissue collaterals and embolization coils. CT/CT chest w IV con IMPRESSION: Resolution bilateral pneumonias, right pleural effusion and ascites. Enlarged fatty liver. 4.6 cm left retroperitoneal fluid collection, left flank soft tissue venous collaterals and left flank embolization coils.
[2023-01-27] MEDS: iohexoL 350 MG/ML 75 ML INFUS..BTL 85 ML IV (15:13)
== END 2023-01-27 13:03 | disposition home or self-care (01) ==
LOC: HO.CT 13:02
PROVIDERS: PCP Pediatrics; Visit Provider Internal Medicine Transplant Hepatology
DX: Z01.818 Encounter for other preprocedural examination (principal); Z76.82 Awaiting organ transplant status
CPT/HCPCS: 71260; 74170; Q9967

== ENCOUNTER 2023-03-10 19:20 | Inpatient (IN) | payer MEDICAID, SELFPAY ==
--- NOTE | ~2023-03-10 | US_ITS ---
EXAMINATION: US ABDOMEN LIMITED CLINICAL INFORMATION: Check for ascites, abdominal distention.. COMPARISON: 01/27/2023 CT TECHNIQUE: Real-time imaging of the right upper quadrant abdominal viscera. FINDINGS: 4 quadrants of the abdomen were imaged. Moderate ascites identified in the right and left lower quadrants, mild amount of ascites identified in the bilateral upper quadrants. US/US abdomen limited IMPRESSION: Moderate ascites.
--- NOTE | ~2023-03-10 | XR_ITS ---
EXAMINATION: XR CHEST CLINICAL INFORMATION: Shortness of breath COMPARISON: CT chest 01/27/2023, chest radiograph 01/08/2023 TECHNIQUE: Frontal view of the chest was obtained. FINDINGS: Again seen is mild elevation of the right hemidiaphragm. Heart size is within normal limits. There is no evidence of CHF. Right basilar atelectasis is present. Previously seen left lower lobe patchy density has cleared. XR/XR chest 1V IMPRESSION: No acute intrathoracic disease. Right basilar atelectasis.
--- NOTE | ~2023-03-10 | US_ITS ---
EXAMINATION: US RETROPERITONEAL LIMITED (RENAL ONLY) CLINICAL INFORMATION: ARF.. COMPARISON: None available. TECHNIQUE: Routine grayscale imaging of kidneys is performed. FINDINGS: RIGHT KIDNEY: 10.4 x 3.8 x 5.2 cm (SAG x AP x TRV). The kidney is normal in size, contour, and echogenicity. Renal cortical thickness is normal. No calculi or focal parenchymal lesions. No hydronephrosis. There is a trace free fluid seen between the kidney and liver. LEFT KIDNEY: 11.5 x 4.9 x 5.2 cm (SAG x AP x TRV). The kidney is normal in size, contour, and echogenicity. Renal cortical thickness is normal. No calculi or focal parenchymal lesions. There is mild caliectasis US/US renal BI IMPRESSION: 1. Mild caliectasis left kidney. 2. The right kidney is unremarkable. 3. There is trace free fluid seen between the right kidney and liver.
[2023-03-10 19:38] VITALS: BP 131/74; PULSE 97; RESP 18; TEMP 36.8; O2SAT 96; BMI 39.0
--- NOTE | 2023-03-10 19:39 | ED.GENADULT ---
HPI - General Adult General Chief complaint: General Medical Stated complaint: Kidney/Liver pain prev hospitalization 01/17 Time Seen by Provider: 03/10/23 22:16 Source: patient Mode of arrival: EMS Limitations: no limitations History of Present Illness HPI narrative: Patient is 52 years old morbid obese diet-controlled diabetes stage IIIB cervical cancer lower extremity DVT on Coumadin, schizophrenia, GERD, recent diagnosis of MALDONADO cirrhosis with ascites and DAVID in 01/17 comes in for diffuse abdominal pain started early today with nausea and vomiting, vomited 3 times had increased abdominal girth for last few days got worse today has decreased urine output all day today also been congested for last few days COVID test came back positive patient denies any significant shortness of breath does have dry cough Related Data Home Medications Medication Instructions Recorded Confirmed benztropine 0.5 mg tablet 0.5 mg PO BID PRN pt unsure 01/03/23 01/03/23 bupropion HCl 200 mg tablet,12 hr 200 mg PO BID depressive disorder 01/03/23 01/03/23 sustained-release citalopram 40 mg tablet 40 mg PO QAM depressive disorder 01/03/23 01/03/23 furosemide 40 mg tablet 40 mg PO DAILY 01/03/23 01/03/23 hydroxyzine pamoate 25 mg capsule 25 mg PO TID PRN Anxiety 01/03/23 01/03/23 loratadine 10 mg tablet 10 mg PO DAILY 01/03/23 01/03/23 midodrine 10 mg tablet 10 mg PO TID 01/03/23 01/03/23 ondansetron HCl 4 mg tablet 4 mg PO Q8H PRN Nausea And Vomiting 01/03/23 01/03/23 risperidone microspheres 50 mg/2 50 mg IM Q2W 01/03/23 01/03/23 mL intramuscular susp,ext release (Risperdal Consta) zolpidem 10 mg tablet 10 mg PO BEDTIME PRN Insomnia 01/03/23 01/03/23 Previous Rx's Medication Instructions Recorded spironolactone 25 mg tablet 25 mg PO BID@0900,1800 #1 tab 01/08/23 amoxicillin 875 mg-potassium 1 tab PO BID #6 tabs 01/11/23 clavulanate 125 mg tablet furosemide 20 mg tablet 20 mg PO BID@0900,1800 #60 tabs 01/11/23 spironolactone 25 mg tablet 25 mg PO BID@0900,1800 #60 tabs 01/11/23 warfarin 5 mg tablet (Jantoven) 5 mg PO DAILY@1800 #30 tabs 01/11/23 Allergies Allergy/AdvReac Type Severity Reaction Status Date / Time No Known Allergies Allergy Verified 03/10/23 19:44 [No Known Allergies*] Review of Systems Review of Systems: Yes all other systems are reviewed and are negative PMFSH Past Medical History Medical History UTI (urinary tract infection) Cervical cancer Lymphedema Cardiac arrest DVT (deep venous thrombosis) Social History Social History Household Members: Children Housing: Apartment Do you presently have visiting nurse or other home services: Yes ([facility] for medication administration. Son and brother are chief environmental commitment officer.) Alcohol intake: never Comment: DAUGHTER STAYING OVERNIGHT Patient Tobacco Use Status: Never used Tobacco Smoked in Last 30 Days: No Use of substances other than those prescribed or required for medical reasons: No Advance Directives: Yes Advance Directives on File: Yes Advance Directives Date on File: 01/03/23 service: No Physical Exam ED Vital Signs: Vital Signs - 24 hr 03/10/23 19:38 03/10/23 22:34 03/10/23 23:30 Temperature 98.3 F 98 F Pulse Rate 97 65 75 Respiratory Rate 18 18 16 Blood Pressure 131/74 117/72 114/63 Pulse Oximetry 96 99 99 Oxygen Delivery Method Room Air Room Air Room Air 03/10/23 23:57 Temperature 98 F Pulse Rate 71 Respiratory Rate 21 H Blood Pressure 122/69 Pulse Oximetry 99 Oxygen Delivery Method Room Air BMI result Body Mass Index 39.0 Appearance: Alert. Oriented X3. No acute distress. Obese Eyes: pallor ENT: Pharynx normal. Oral Mucosa moist Neck: Normal inspection. Neck supple. CVS: Normal heart rate and rhythm. Pulses normal. Respiratory: No respiratory distress. Equal air entry bilateral, no wheezing/rales/rhonchi Abdomen: Distended with fluid diffuse tenderness no rebound tenderness or guarding Bowel sounds are present, no mass palpable, no CVA tenderness Skin: Skin warm and dry. Normal skin color. Normal skin turgor. Extremities: Nonpitting 4+ lower extremity edema. No calf tenderness Neuro: Oriented X 3. No motor deficit. No sensory deficit.No cerebellar signs , cranial nerves II-XII intact Course Course Course Narrative: This is a rapid medical exam: Additional HPI, ROS, PE not included below will be deferred to primary provider. Patient is a 52-year-old female with history of cardiac arrest due to hemorrhagic shock, extensive lower extremity DVT on warfarin, lymphedema, cervical CA s/p radiation chemotherapy, schizophrenia presenting to the ED with complaint of generalized abdominal pain, nausea, vomiting. Was admitted in December for DAVID. Also reports recent URI sxs. Plan: labs, UA, viral swabs Medications Administered Generic Name Dose Route Start Last Admin Trade Name Freq PRN Reason Stop Dose Admin Sodium Chloride 1,000 mls @ 125 mls/hr 03/10/23 22:55 03/10/23 23:17 Ns IV 03/11/23 06:54 125 mls/hr .Q8H ONE Administration Discontinued Medications Generic Name Dose Route Start Last Admin Trade Name Freq PRN Reason Stop Dose Admin Ondansetron HCl 4 mg 03/10/23 23:12 03/10/23 23:22 Ondansetron Hcl 4 Mg/2 Ml Vial IVPUSH 03/10/23 23:13 4 mg ONCE ONE Administration Medical Decision Making Medical Decision Making [facility] Narrative: Patient has significant hyponatremia with ascites with DAVID patient had similar presentation in 01/17 and improved after IV fluids negative for SIADH mentation is normal. Patient albumin level is 4.2 total protein 7.5 will hold albumin at this time with is no improvement in sodium level we may give IV albumin Differential Diagnosis Differential Diagnoses: The differential diagnosis associated with the presentation includes Viral infection/ascites/hyponatremia/metabolic encephalopathy/DAVID Admission/Observation Consideration of admission/observation: Escalation of care including admission/observation considered Consult Healthcare Provider Management of the patient was discussed with: Hospitalist Lab Data [facility] Lab Attestation statement: I reviewed the patient's lab results. 03/10/23 21:10 03/10/23 21:10 Labs: Lab Results 03/10/23 03/11/23 Range/Units 21:10 00:48 WBC 4.6 L (4.8-10.8) X10*3/uL RBC 4.97 D (4.20-5.50) X10*6/uL Hgb 13.9 D (12.0-16.0) g/dl Hct 41.6 D (37.0-47.0) % MCV 83.7 (80.0-98.0) fL MCH 28.0 (27.0-33.0) pg MCHC 33.4 (31.0-35.0) g/dl RDW 13.2 (11.0-16.0) % Plt Count 253 (160-400) X10*3/uL MPV 10.5 (9.4-12.3) fL Immature Gran % (Auto) 0.2 (0.0-0.4) % Neut % (Auto) 71.4 (45-73) % Lymph % (Auto) 22.1 (20-40) % [place] % (Auto) 5.9 (2-11) % Eos % (Auto) 0.2 (0-4) % Baso % (Auto) 0.2 (0-2) % Lymph # (Auto) 1.0 L (1.2-4.9) X10*3/uL [place] # (Auto) 0.3 (0.1-1.2) X10*3/uL Eos # (Auto) 0.0 (0.0-0.4) X10*3/uL Baso # (Auto) 0.0 (0.0-0.2) X10*3/uL Abs Immat Gran (auto) 0.01 (0.00-0.03) X10*3/uL Absolute Neuts (auto) 3.3 (2.0-8.3) x10*3/uL Absolute Nucleated RBC 0.000 (0.0-0.012) X10*3/uL Nucleated RBC % (auto) 0.0 (0.0-0.2) /100WBC PT 27.4 H D (11.1-13.3) SEC INR 2.3 H (0.9-1.1) APTT 38.3 H (26.0-36.4) SEC Sodium 121 L (135-145) mmol/L Potassium 3.8 (3.3-5.1) mmol/L Chloride 82 L (96-108) mmol/L Carbon Dioxide 25 (22-29) mmol/L Anion Gap 18 (12-20) BUN 23 H (9-16) mg/dL Creatinine 1.69 H (0.5-1.4) mg/dL Estim Creat Clear Calc 44.3 Estimated GFR 32 Random Glucose 84 (60-115) mg/dL Osmolality 260 L (281-305) mosm/kg Calcium 9.5 D (8.4-10.2) mg/dL Total Bilirubin 0.7 (0.0-1.0) mg/dL AST 19 (5-31) U/L ALT 13 (0-31) U/L Alkaline Phosphatase 97 (39-117) U/L Total Protein 7.5 (6.5-8.0) g/dL Albumin 4.2 (3.5-5.0) g/dL Influenza Type A (PCR) NEGATIVE (Negative) Influenza Type B (PCR) NEGATIVE (Negative) RSV RNA Qual (PCR) NEGATIVE (Negative) SARS-CoV-2 RNA (RT-PCR) POSITIVE A (Negative) Discharge Plan Discharge Clinical Impression: Acute kidney insufficiency, Cirrhosis of liver with ascites, Acute hyponatremia Patient Disposition: Admitted As Inpatient
[2023-03-10 21:16] LABS: MANUAL DIFF FLAG NO
[2023-03-10 21:18] LABS: Basophils Percent Auto 0.2 % (0-2); Eosinophils Percent Auto 0.2 % (0-4); Hematocrit 41.6 % (37.0-47.0); Hemoglobin 13.9 g/dl (12.0-16.0); Imm Gran Abs Auto 0.01 X10*3/uL (0.00-0.03); Imm Gran Pct Auto 0.2 % (0.0-0.4); Lymphocytes Percent Auto 22.1 % (20-40); Mean Corpuscular HGB Conc 33.4 g/dl (31.0-35.0); Mean Corpuscular Volume 83.7 fL (80.0-98.0); Mean Platelet Volume 10.5 fL (9.4-12.3); Monocytes Absolute Auto 0.3 X10*3/uL (0.1-1.2); Monocytes Percent Auto 5.9 % (2-11); Neutrophils Absolute Auto 3.3 x10*3/uL (2.0-8.3); Neutrophils Percent Auto 71.4 % (45-73); Platelet Count 253 X10*3/uL (160-400); Red Blood Count 4.97 X10*6/uL (4.20-5.50); Red Cell Distribution Width 13.2 % (11.0-16.0); White Blood Count 4.6 X10*3/uL (4.8-10.8)
[2023-03-10 21:25] LABS: INTERNATIONAL NORM RATIO 2.3 (0.9-1.1); Prothrombin Time 27.4 SEC (11.1-13.3)
[2023-03-10 21:28] LABS: Partial Thromboplastin Time 38.3 SEC (26.0-36.4)
[2023-03-10 21:34] LABS: Alanine Aminotransferase 13 U/L (0-31); Albumin Level 4.2 g/dL (3.5-5.0); Alkaline Phosphatase 97 U/L (39-117); Anion Gap 18 (12-20); Aspartate Amino Transferase 19 U/L (5-31); Bilirubin Total 0.7 mg/dL (0.0-1.0); Blood Urea Nitrogen 23 mg/dL (9-16); Calcium 9.5 mg/dL (8.4-10.2); Carbon Dioxide 25 mmol/L (22-29); Chloride 82 mmol/L (96-108); Creatinine Clr Calc Pharmacy 44.3; Estimated Glomerular Filt Rate 32; Glucose Random 84 mg/dL (60-115); Potassium 3.8 mmol/L (3.3-5.1); Sodium 121 mmol/L (135-145); Total Protein 7.5 g/dL (6.5-8.0)
[2023-03-10 21:54] LABS: Influenza A PCR NEGATIVE (Negative); Influenza B PCR NEGATIVE (Negative); Resp Syncy Virus RNA Qual PCR NEGATIVE (Negative); SARS COV2 PCR INHOUSE POSITIVE (Negative)
[2023-03-10 22:34] VITALS: BP 117/72; PULSE 65; RESP 18; TEMP 36.6; O2SAT 99
[2023-03-10] MEDS: 0.9 % Sodium Chloride 1,000 ML 125 ML IV (23:17)
[2023-03-10] MEDS: ondansetron HCL 4 MG/2 ML VIAL IVPUSH (23:22)
[2023-03-10 23:30] VITALS: BP 114/63; PULSE 75; RESP 16; O2SAT 99
[2023-03-10 23:57] VITALS: BP 122/69; PULSE 71; RESP 21; TEMP 36.6; O2SAT 99
[2023-03-11] VITALS (7 sets, daily range): BP systolic 109–118; BP diastolic 57–83; PULSE 55–101; RESP 16–20; TEMP 36.4–37.2; O2SAT 93–100; BMI 40.5
[2023-03-11 01:14] LABS: Osmolality, Serum 260 mosm/kg (281-305)
[2023-03-11] MEDS: 0.9 % Sodium Chloride 1,000 ML 999 ML IV (03:40)
--- NOTE | 2023-03-11 06:05 | PC.NURSE ---
Addendum entered by Jasmin Fabian 03/11/23 06:27: pt straight cathed tolerated well 500 ml urine output Original Note: pt unable to provide urine sample. bladder scan showed [address] Alvarado notified. awaiting further orders.
--- NOTE | 2023-03-11 06:29 | P.HPHOSP_ITS ---
History of Present Illness Date of Service: 03/11/23 Attending physician on admission: Danial Alvarado Chief Complaint: Abdominal pain with nausea and vomiting x 1 day Patient is a 52 year old obese female with history of decompensated liver cirrhosis due to MALDONADO, diet controlled T2DM, Stage IIIB cervical cancer, GERD, Schizophrenia, bilateral lower extremity lymphedema and DVT on Coumadin who presented to the emergency room accompanied by her daughter who was assisting with the history complaining of severe (10/10) abdominal pain since 5 AM this morning when she woke up. This was associated with abdominal 'tension'. The pain gradually improved and by 7 AM, when her daughter left for work, it was tolerable. However, when her daughter got back home at 6 PM, she continued to report feeling generally unwell with persistent though tolerable abdominal pain (she rated at a 5/10) with associated non-projectile emesis and decreased urine output. Initial work up done in the emergency room was notable for a positive COVID-19 PCR test, hyponatremia with a serum sodium of 121 mmol/L and renal failure with a BUN of 23 mg/dL & creatinine of 1.69 mg/dL (last creatinine on 01/11 was 0.6). She was started on anti-emetics and IV fluids and admission requested. Review of Systems 2 Review of Systems: Yes all other systems are reviewed and are negative [facility] Medical History UTI (urinary tract infection) Cervical cancer Lymphedema Cardiac arrest DVT (deep venous thrombosis) Functional capacity: independent ambulation Patient : No Social History Household Members: Children Housing: Apartment Do you presently have visiting nurse or other home services: Yes ([facility] for medication administration. Son and brother are finish mender.) Alcohol intake: never Comment: DAUGHTER STAYING OVERNIGHT Patient Tobacco Use Status: Never used Tobacco Smoked in Last 30 Days: No Use of substances other than those prescribed or required for medical reasons: No Advance Directives: Yes Advance Directives on File: Yes Advance Directives Date on File: 01/03/23 Nutrition Risks: No Nutritional Risk Patient : No service: No Meds Allergies Allergy/AdvReac Type Severity Reaction Status Date / Time No Known Allergies Allergy Verified 03/10/23 19:44 [No Known Allergies*] Home Medications Medication Instructions Recorded Confirmed Last Taken Type benztropine 0.5 mg tablet 0.5 mg PO BID PRN pt unsure 01/03/23 01/03/23 Unknown History bupropion HCl 200 mg tablet,12 hr 200 mg PO BID depressive disorder 01/03/23 01/03/23 Unknown History sustained-release citalopram 40 mg tablet 40 mg PO QAM depressive disorder 01/03/23 01/03/23 Unknown History furosemide 40 mg tablet 40 mg PO DAILY 01/03/23 01/03/23 Unknown History hydroxyzine pamoate 25 mg capsule 25 mg PO TID PRN Anxiety 01/03/23 01/03/23 Unknown History loratadine 10 mg tablet 10 mg PO DAILY 01/03/23 01/03/23 Unknown History midodrine 10 mg tablet 10 mg PO TID 01/03/23 01/03/23 Unknown History ondansetron HCl 4 mg tablet 4 mg PO Q8H PRN Nausea And Vomiting 01/03/23 01/03/23 Unknown History risperidone microspheres 50 mg/2 50 mg IM Q2W 01/03/23 01/03/23 12/24/22 History mL intramuscular susp,ext release (Risperdal Consta) zolpidem 10 mg tablet 10 mg PO BEDTIME PRN Insomnia 01/03/23 01/03/23 Unknown History Physical Exam 2 Vital Signs and Narrative: Vital Signs: Last Vital Signs Temp 98.1 F 03/11/23 05:41 Pulse 63 03/11/23 05:41 Resp 18 03/11/23 05:41 BP 118/75 03/11/23 05:41 Pulse Ox 93 03/11/23 05:41 O2 Del Method Room Air 03/11/23 05:41 BMI result Body Mass Index 39.0 General: Well nourished. Awake, alert and oriented x 4. No apparent distress Eyes: No pallor or jaundice. PERRLA, EOMI. HENT: Moist oral mucus membranes. No oropharyngeal lesions. Neck: Supple. No cervical adenopathy. No JVD Cardiovascular: Regular rate and rhythm. Normal heart sounds. No murmurs, rubs or gallops. No JVD. No peripheral edema. Respiratory: Normal respiratory effort with no accessory muscle use. CTAB. Gastrointestinal: Abdomen is soft, with mild discomfort on deep palpation. NABS. No hepatosplenomegaly Extremities: No edema. No calf tenderness. Good peripheral pulses Skin: Warm/Dry. No rashes. No mottling. Capillary refill is < 2 seconds Neurological: AAOx4. Intact speech & cognition. Gait & balance not tested. CN II - XII grossly intact but not individually tested. No motor or sensory deficits Hematologic: No bleeding. No ecchymosis. No swollen or tender lymph nodes. Psychiatric: Cooperative. Appropriate mood and affect. Results Labs 03/10/23 21:10 03/10/23 21:10 Labs: Laboratory Results - last 24 hr 03/10/23 03/11/23 21:10 00:48 MCV 83.7 MCH 28.0 MCHC 33.4 RDW 13.2 Plt Count 253 MPV 10.5 Immature Gran % (Auto) 0.2 Neut % (Auto) 71.4 Lymph % (Auto) 22.1 [place] % (Auto) 5.9 Eos % (Auto) 0.2 Baso % (Auto) 0.2 Lymph # (Auto) 1.0 L [place] # (Auto) 0.3 Eos # (Auto) 0.0 Baso # (Auto) 0.0 Abs Immat Gran (auto) 0.01 Absolute Neuts (auto) 3.3 Absolute Nucleated RBC 0.000 Nucleated RBC % (auto) 0.0 PT 27.4 H D INR 2.3 H APTT 38.3 H Anion Gap 18 Estim Creat Clear Calc 44.3 Estimated GFR 32 Random Glucose 84 Osmolality 260 L Calcium 9.5 D Total Bilirubin 0.7 AST 19 ALT 13 Alkaline Phosphatase 97 Total Protein 7.5 Albumin 4.2 Influenza Type A (PCR) NEGATIVE Influenza Type B (PCR) NEGATIVE RSV RNA Qual (PCR) NEGATIVE SARS-CoV-2 RNA (RT-PCR) POSITIVE A Imaging Radiologist's Impressions: Impressions Chest X-Ray 03/10/23 23:30 IMPRESSION: No acute intrathoracic disease. Right basilar atelectasis. Assessment and Plan (1) Acute kidney insufficiency: Status: Acute (2) Hyponatremia: Status: Acute (3) Abdominal pain: Status: Acute Plan 52 year old obese female with history of decompensated liver cirrhosis due to MALDONADO, diet controlled T2DM, Stage IIIB cervical cancer, GERD, Schizophrenia, bilateral lower extremity lymphedema and DVT here with 1. Acute renal failure - unclear etiology - re-check renal function 2. Hyponatremia - asymptomatic - likely due to liver cirrhosis - on IV fluids - monitor 3. COVID-19 - noted with COVID-19 infection - likely cause of underlying issues 4. Abdominal pain - in setting of decompensated liver cirrhosis - doubt SBP - remains afebrile with no leukocytosis - monitor 5. H/O DVT - on Coumadin with therapeutic INR - continue Coumadin Total time managing care of this patient today: 75 minutes. Quality Stroke Does the patient have a stroke diagnosis?: No VTE Prior VTE?: No VTE Risk Level:: Medical - moderate - high VTE Device Contraindication: N/A - Device Ordered VTE Drug Contraindication: N/A - Med Ordered
[2023-03-11 06:52] LABS: Appearance Urine Clear; Color Urine Yellow; Glucose Urine UA 100 mg/dL (Negative); Leukocyte Esterase Urine Negative (Negative); Nitrite Urine Negative (Negative); PH 7.5 (5.0-9.0); Specific Gravity - Urine <= 1.005 (1.005-1.025); UMIC TRIGGER UACC YES; Urine Blood Trace (Negative); Urine Ketones Negative (Negative); Urine Protein 300 (3+) mg/dL (Neg-Trace)
[2023-03-11 06:55] LABS: Osmolality Urine 162 mosm/kg (373-1093)
[2023-03-11 07:14] LABS: Bacteria Urine None Seen (None Seen); Hyaline Casts Urine 0-2 /LPF (0-2); Squamous Epithelial Cell Urine 0-2 /HPF (0-2); UACC Culture Trigger YES
--- NOTE | 2023-03-11 08:34 | PHA.MEDREC ---
Pharmacy Consult ? Medication Reconciliation Pharmacy has completed the medication reconciliation. Broadcast Journalist used. Patient was able to recall their medications, she did mention she is no longer on Atorvastatin. Patient also stated that an RN takes her INR every tuesday and a clinic will guide their RN on which warfarin dosing to do that week. Patients warfarin doses change with 5 mg and 3 mg tablets.
--- NOTE | 2023-03-11 08:48 | MHC.CM.PN ---
Pt SSO and covid+. Pt lives at home with her son and daughter. CM assessment done with pts daughter/HCP Metressily ([phone]). Pt has [employer] services daily (son and brother), [facility], and uses a rollater. Pts son can transport her home at D/C. PCP: Dr. Kristin Todd
[2023-03-11] MEDS: ondansetron HCL 4 MG/2 ML VIAL IVPUSH (09:27)
[2023-03-11 10:02] LABS: MANUAL DIFF FLAG NO
[2023-03-11 10:04] LABS: Eosinophils Percent Auto 0.3 % (0-4); Hematocrit 41.4 % (37.0-47.0); Hemoglobin 13.7 g/dl (12.0-16.0); Imm Gran Abs Auto 0.01 X10*3/uL (0.00-0.03); Imm Gran Pct Auto 0.3 % (0.0-0.4); Lymphocytes Absolute Auto 0.7 X10*3/uL (1.2-4.9); Lymphocytes Percent Auto 17.1 % (20-40); Mean Corpuscular HGB Conc 33.1 g/dl (31.0-35.0); Mean Corpuscular Hemoglobin 27.2 pg (27.0-33.0); Mean Corpuscular Volume 82.1 fL (80.0-98.0); Mean Platelet Volume 10.1 fL (9.4-12.3); Monocytes Absolute Auto 0.3 X10*3/uL (0.1-1.2); Monocytes Percent Auto 6.5 % (2-11); Neutrophils Percent Auto 75.8 % (45-73); Platelet Count 234 X10*3/uL (160-400); Red Blood Count 5.04 X10*6/uL (4.20-5.50); Red Cell Distribution Width 13.4 % (11.0-16.0)
[2023-03-11 10:42] LABS: Anion Gap 15 (12-20); Blood Urea Nitrogen 27 mg/dL (9-16); Calcium 9.1 mg/dL (8.4-10.2); Carbon Dioxide 21 mmol/L (22-29); Chloride 90 mmol/L (96-108); Creatinine Clr Calc Pharmacy 31.4; Estimated Glomerular Filt Rate 21; Glucose Random 101 mg/dL (60-115); Potassium 4.1 mmol/L (3.3-5.1); Sodium 122 mmol/L (135-145)
[2023-03-11] MEDS: buPROPion HCl XL 300 MG TAB.ER.24H PO (11:33)
[2023-03-11] MEDS: buPROPion HCl XL 150 MG TAB.ER.24H PO (11:33)
[2023-03-11] MEDS: HYDROmorphone HCl 0.5 MG/0.5 ML SYRINGE 0.25 MG IVPUSH ×2 (11:33→18:22)
[2023-03-11] MEDS: Escitalopram Oxalate 20 MG TABLET PO (11:33)
--- NOTE | 2023-03-11 13:23 | P.CONNP_ITS ---
History of Present Illness Reason for Consult Consult date: 03/11/23 Chief Complaint Chief complaint: Abdominal pain History of Present Illness Narrative: Asked to this this 52 yo woman for DAVID and hyponatremia. She speaks very little Hungarian. i obtained much of the history from the EMR. She has a hx of cervical cancer and is s/p radiation with resulting radiation cystitis. She apparently also has a diagnosis of MALDONADO/Cirrhosis. She presented with abdominaly pain, very similar to her presentation in December. Again now she has DAVID with proteinuria, pyuria on UA. During last admission, she responded to francisco cath placement. She also undertook a paracentesis last admission. Her UO is decreased by her report. Creat is 2.4 today up from 1.6 yesterday with a normal baseline creatinine. She has nausea and some vomiting. Her serum sodium is 122 with urine osm of 168. She was discharged in December on spironolactone and furosemide. The cause of DAVID last admission was thought to be HRS initially but she only recovered when a francisco cath was placed and then she diuresed and recovered overnight. She is a type II DM as well. Review of Systems Review of Systems abdominal pain no fever decrease in UO dysuria some back pain nausea some vomiting no diarrhea PMFSH Past Medical History Medical History UTI (urinary tract infection) Cervical cancer Lymphedema Cardiac arrest DVT (deep venous thrombosis) Functional capacity: independent ambulation Social History Social History Household Members: Family Housing: Apartment Do you presently have visiting nurse or other home services: Yes Alcohol intake: never Comment: DAUGHTER STAYING OVERNIGHT Patient Tobacco Use Status: Never used Tobacco Smoked in Last 30 Days: No Use of substances other than those prescribed or required for medical reasons: No Currently Displaying Signs/Symptoms of Drug Intoxication Withdrawal: No Have you been hit, kicked, punched, or otherwise hurt by someone within the past year? If so, by whom?: No Do you feel safe in your current relationship?: Yes Is there a partner from a previous relationship who is making you feel unsafe now?: No Are you made to feel afraid or neglected: No Advance Directives: Yes Advance Directives on File: Yes Advance Directives Date on File: 01/03/23 Do you have thoughts of harming others: None Do you have a plan to hurt others: No Plan Recently lost weight without trying: No Nutrition Risks: No Nutritional Risk Patient : No : No Poor oral hygiene: No service: No Meds Allergies Allergy/AdvReac Type Severity Reaction Status Date / Time No Known Allergies Allergy Verified 03/10/23 19:44 [No Known Allergies*] Active Medications: Current Medications Acetaminophen (Acetaminophen 325 Mg Tablet) 650 mg PO Q6H PRN PRN Reason: Pain, Mild (Pain Scale 1-3) Al Hydroxide/Mg Hydroxide (Magnesium Hydrox/Alum Hydrox 30 Ml Oral.Susp) 30 ml PO Q4H PRN PRN Reason: Heartburn/Nausea Benztropine Mesylate (Benztropine Mesylate 0.5 Mg Tablet) 0.5 mg PO BID PRN PRN Reason: pt unsure Bupropion HCl (Bupropion Hcl Xl 150 Mg Tab.Er.24h) 150 mg PO DAILY [facility] Last Admin: 03/11/23 11:33 Dose: 150 mg Bupropion HCl (Bupropion Hcl Xl 300 Mg Tab.Er.24h) 300 mg PO DAILY [facility] Last Admin: 03/11/23 11:33 Dose: 300 mg Escitalopram Oxalate (Escitalopram Oxalate 20 Mg Tablet) 20 mg PO DAILY [facility] Last Admin: 03/11/23 11:33 Dose: 20 mg Hydromorphone HCl (Hydromorphone Hcl 0.5 Mg/0.5 Ml Syringe) 0.25 mg IVPUSH Q4H PRN; Protocol PRN Reason: Pain, Severe (Pain Scale 7-10) Last Admin: 03/11/23 11:33 Dose: 0.25 mg Hydroxyzine HCl (Hydroxyzine Hcl 25 Mg Tablet) 25 mg PO TID PRN PRN Reason: Anxiety Melatonin (Melatonin 3 Mg Tablet) 6 mg PO BEDTIME PRN PRN Reason: Insomnia Midodrine (Midodrine Hcl 10 Mg Tablet) 10 mg PO TID [facility] Ondansetron HCl (Ondansetron Hcl 4 Mg/2 Ml Vial) 4 mg IVPUSH Q8H PRN PRN Reason: Nausea and Vomiting Last Admin: 03/11/23 09:27 Dose: 4 mg Sodium Chloride (0.9 % Sodium Chloride Flush 3 Ml Syringe) 3 ml IVFLUSH QSHIFT [facility] Last Admin: 03/11/23 07:36 Dose: Not Given Home Medications Medication Instructions Recorded Confirmed Last Taken Type benztropine 0.5 mg tablet 0.5 mg PO BID PRN pt unsure 01/03/23 03/11/23 Unknown History bupropion HCl 200 mg tablet,12 hr 200 mg PO BID depressive disorder 01/03/23 03/11/23 Unknown History sustained-release citalopram 40 mg tablet 40 mg PO QAM depressive disorder 01/03/23 03/11/23 Unknown History furosemide 40 mg tablet 40 mg PO DAILY 01/03/23 03/11/23 Unknown History hydroxyzine pamoate 25 mg capsule 25 mg PO TID PRN Anxiety 01/03/23 03/11/23 Unknown History loratadine 10 mg tablet 10 mg PO DAILY 01/03/23 03/11/23 Unknown History midodrine 10 mg tablet 10 mg PO TID 01/03/23 03/11/23 Unknown History ondansetron HCl 4 mg tablet 4 mg PO Q8H PRN Nausea And Vomiting 01/03/23 03/11/23 Unknown History risperidone microspheres 50 mg/2 50 mg IM Q2W 01/03/23 03/11/23 12/24/22 History mL intramuscular susp,ext release (Risperdal Consta) zolpidem 10 mg tablet 10 mg PO BEDTIME PRN Insomnia 01/03/23 03/11/23 Unknown History acetaminophen 325 mg tablet 975 mg PO Q8H PRN pain 03/11/23 03/11/23 Unknown History triamcinolone acetonide 0.025 % 1 appl topical BID 03/11/23 03/11/23 Unknown History topical ointment warfarin 3 mg tablet 3 - 6 mg PO DAILY 03/11/23 03/11/23 Unknown History warfarin 5 mg tablet 5 - 10 mg PO DAILY 03/11/23 03/11/23 Unknown History Physical Exam Vital Signs: Last Vital Signs Temp 97.6 F 03/11/23 07:56 Pulse 55 03/11/23 07:56 Resp 18 03/11/23 07:56 BP 117/58 L 03/11/23 07:56 Pulse Ox 99 03/11/23 07:56 O2 Del Method Room Air 03/11/23 07:56 BMI result Body Mass Index 40.5 Results Lab Results 03/11/23 09:57 03/11/23 09:57 Lab results: Chemistry 03/10/23 03/11/23 21:10 09:57 Sodium 121 L 122 L Potassium 3.8 4.1 Carbon Dioxide 25 21 L BUN 23 H 27 H Creatinine 1.69 H 2.44 H Calcium 9.5 D 9.1 Hematology 03/10/23 03/11/23 21:10 09:57 WBC 4.6 L 4.0 L Hgb 13.9 D 13.7 Plt Count 253 234 Urinalysis 03/11/23 06:29 Urine Color Yellow Urine Appearance Clear Urine pH 7.5 Ur Specific [place] <= 1.005 Urine Protein 300 (3+) H Urine Glucose (UA) 100 H Urine Ketones Negative Urine Blood Trace H Urine Nitrite Negative Ur Leukocyte Esterase Negative Urine RBC 3-5 H Urine WBC 11-20 Ur Squamous Epith Cells 0-2 Hyaline Casts 0-2 Urine Studies 03/11/23 06:29 Urine Osmolality 162 L Assessment and Plan (1) Acute kidney injury: Status: Acute DAVID -ddx unclear etiology but may have significant bladder dysfunction and would place francisco to ensure emptying. I would also get renal ultrasound to rule out hydronephrosis. HRS is possible but I doubt this. Compartment syndrome may be playing a role and paracentesis may help. (2) Hyponatremia: Status: Acute Hypovolemic hyponatremia: in the setting of cirrhosis Plan Recommend: Fluid restriction Albumin infusion tid Renal US Francisco catheter UP/creat Urine culture Procedures Date of Service Date of Service: 03/11/23
--- NOTE | 2023-03-11 14:21 | PM.EVENT ---
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 urine osmolality 162, serum osmolality 260, normal LFTs, She was started on anti-emetics and IV fluids and admission requested. This morning patient complaining of mid to right upper quadrant abdominal pain, nausea and vomiting no fevers no chills pain came on suddenly. 1. Acute renal failure - noted to have worsening renal function, this morning, patient complaining of difficulty voiding Mcallister catheter placed and greater than 2 L have been drained, patient seen by Dr. Soto will follow renal recommendations and follow BMP closely. 2. Hyponatremia - asymptomatic, likely due to liver cirrhosis, monitor daily BMP, DC fluids will place on fluid restriction 3. COVID-19 - noted with COVID-19 infection, no hypoxia follow clinical course 4. Abdominal pain - acute onset of abdominal pain and distension will obtain abdominal ultrasound to check for ascites and request for paracentesis. 5. H/O DVT - on Coumadin with therapeutic INR Time Spent With Patient Time: Total time managing care of this patient today ____ minutes.
--- NOTE | 2023-03-11 15:10 | MHC.CM.PN ---
EMR reviewed and per MD rounds, pt is not medically cleared for D/C due to pt requiring management of acute renal failure, hyponatremia, and covid-19 infection. CM will continue to follow.
[2023-03-11 15:38] LABS: Creatinine Urine 18.13 mg/dL
[2023-03-11 15:50] LABS: Total Protein Urine Random 233 mg/dL (<12)
[2023-03-11] MEDS: 0.9 % Sodium Chloride Flush 3 ML SYRINGE IVFLUSH ×2 (16:10→20:34)
[2023-03-11] MEDS: Midodrine HCl 10 MG TABLET PO ×2 (16:33→20:34)
--- NOTE | 2023-03-11 16:49 | P.CNGI_ITS ---
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 This was associated with abdominal 'tension'. The pain gradually improved and by 7 AM, when her daughter left for work, it was tolerable. However, when her daughter got back home at 6 PM, she continued to report feeling generally unwell with persistent though tolerable abdominal pain (she rated at a 5/10) with associated non-projectile emesis and decreased urine output. Labs in ED showed a positive COVID-19 PCR test, hyponatremia with a serum sodium of 121 mmol/L and renal failure with a BUN of 23 mg/dL & creatinine of 1.69 mg/dL (last creatinine on 01/11 was 0.6). Pt was started on anti-emetics and IV fluids and admitted for further managment. Hx obtained from her daughter over the phone Daughter stated, pt had been doing well since discharge from [facility] 2 months ago with improvement/? resolution of ascites. Pt denies past or family hx of liver disease. She has noted some abdominal distansion for the past few weeks with sudden worsening associated with diffuse abdominal pain on 01/01/23. Patient denies any history of IV drug abuse, past blood transfusion or history of hepatitis. Patient complains of intermittent heartburn and constipation. Patient denies smoking or EtOH abuse. Patient gives a history of hoarseness since she was intubated during cardiac arrest Pt denies known family hx of colon polyps or GI malignancy. Labs showed elevated Cr and 3+ protein urea 03/11/23 ABDOMINAL ULTRASOUND SHOWED: 4 quadrants of the abdomen were imaged. Moderate ascites identified in the right and left lower quadrants, mild amount of ascites identified in the bilateral upper quadrants. PAST MEDICAL HISTORY BY REVIEW OF MEDICAL RECORD: 01/06/23 PT WAS SEEN IN CONSULTATION DURING HER PREVIOUS ADMISSION: 52 Kyrgyz-speaking female with morbid obesity, diet-controlled diabetes, stage IIIB cervical cancer (status post radiation chemotherapy complicated by radiation cystiti), extensive lower extremity DVT on Coumadin, schizophrenia, GERD, history of cardiac arrest due to hemorrhagic shock in 2014 admitted to [facility] on 01/03/23 with abdominal pain. Patient stated that her abdominal pain started about 2 days prior to presentation and is associated with bloating and abdominal distention, nausea without vomiting, soft stools. She reported subjective fevers, poor p.o. intake. In ED lab significant for acute kidney injury, CT abdomen with cirrhotic liver morphology and moderate volume ascites as well as enteritis. Patient was seen by Nephrology and started on midodrine and albumin with improvement in renal function. Review of Systems 2 Review of Systems: abdominal pain no fever decrease in UO dysuria some back pain nausea some vomiting no diarrhea PMFSH Past Medical History Medical History Liver cirrhosis secondary to MALDONADO Obstructive uropathy Hyponatremia Cirrhosis of liver with ascites Acute kidney insufficiency UTI (urinary tract infection) Cervical cancer Lymphedema Cardiac arrest DVT (deep venous thrombosis) Functional capacity: independent ambulation Social History Social History Household Members: Children Household Members Other:: Son, daughter Housing: Apartment Do you presently have visiting nurse or other home services: Yes Alcohol intake: never Comment: DAUGHTER STAYING OVERNIGHT Patient Tobacco Use Status: Never used Tobacco e-Cigarette/Vaping Use: Never Used Advance Directives Date on File: 01/03/23 service: No Meds Allergies Allergy/AdvReac Type Severity Reaction Status Date / Time No Known Allergies Allergy Verified 10/11/23 19:17 [No Known Allergies*] Active Medications: Current Medications Acetaminophen (Acetaminophen 325 Mg Tablet) 650 mg PO Q6H PRN PRN Reason: Pain, Mild (Pain Scale 1-3) Al Hydroxide/Mg Hydroxide (Magnesium Hydrox/Alum Hydrox 30 Ml Oral.Susp) 30 ml PO Q4H PRN PRN Reason: Heartburn/Nausea Benztropine Mesylate (Benztropine Mesylate 0.5 Mg Tablet) 0.5 mg PO BID PRN PRN Reason: pt unsure Bupropion HCl (Bupropion Hcl Xl 150 Mg Tab.Er.24h) 150 mg PO DAILY [facility] Last Admin: 03/11/23 11:33 Dose: 150 mg Bupropion HCl (Bupropion Hcl Xl 300 Mg Tab.Er.24h) 300 mg PO DAILY [facility] Last Admin: 03/11/23 11:33 Dose: 300 mg Escitalopram Oxalate (Escitalopram Oxalate 20 Mg Tablet) 20 mg PO DAILY [facility] Last Admin: 03/11/23 11:33 Dose: 20 mg Hydromorphone HCl (Hydromorphone Hcl 0.5 Mg/0.5 Ml Syringe) 0.25 mg IVPUSH Q4H PRN; Protocol PRN Reason: Pain, Severe (Pain Scale 7-10) Last Admin: 03/11/23 11:33 Dose: 0.25 mg Hydroxyzine HCl (Hydroxyzine Hcl 25 Mg Tablet) 25 mg PO TID PRN PRN Reason: Anxiety Promethazine HCl 6.25 mg/ (Sodium Chloride) 50.25 mls @ 201 mls/hr IV Q6H PRN PRN Reason: Nausea and Vomiting Last Infusion: 03/11/23 16:21 Dose: Infused Albumin Human (Kedbumin 25 %) 100 mls @ 100 mls/hr IV TID [facility] Stop: 03/12/23 21:59 Melatonin (Melatonin 3 Mg Tablet) 6 mg PO BEDTIME PRN PRN Reason: Insomnia Midodrine (Midodrine Hcl 10 Mg Tablet) 10 mg PO TID [facility] Last Admin: 03/11/23 16:33 Dose: 10 mg Ondansetron HCl (Ondansetron Hcl 4 Mg/2 Ml Vial) 4 mg IVPUSH Q8H PRN PRN Reason: Nausea and Vomiting Last Admin: 03/11/23 09:27 Dose: 4 mg Sodium Chloride (0.9 % Sodium Chloride Flush 3 Ml Syringe) [facility] Last Admin: 03/11/23 16:10 Dose: 3 ml Home Medications ?Medication ?Instructions ?Recorded ?Confirmed ?Last Taken ?Type bupropion HCl 200 mg tablet,12 hr 200 mg PO BID depressive disorder 01/03/23 10/12/23 10/11/23 History sustained-release hydroxyzine pamoate 25 mg capsule 25 mg PO TID PRN Anxiety 01/03/23 10/12/23 10/11/23 History loratadine 10 mg tablet 10 mg PO DAILY 01/03/23 10/12/23 10/11/23 History ondansetron HCl 4 mg tablet 4 mg PO BID Nausea And Vomiting 01/03/23 10/12/23 10/11/23 History risperidone microspheres 50 mg/2 50 mg IM Q2W 01/03/23 10/12/23 09/30/23 History mL intramuscular susp,ext release (Risperdal Consta) zolpidem 10 mg tablet 10 mg PO BEDTIME Insomnia 01/03/23 10/12/23 10/11/23 History triamcinolone acetonide 0.025 % 1 appl topical BID PRN Rash 03/11/23 10/12/23 10/11/23 History topical ointment benztropine 0.5 mg tablet 0.5 mg PO BID PRN dystonias 07/13/23 10/12/23 10/11/23 History nystatin 100,000 unit/gram topical 1 appl topical BID 07/13/23 10/12/23 10/11/23 History powder warfarin 4 mg tablet 8 mg PO WETHFR 07/13/23 10/12/23 10/11/23 History warfarin 6 mg tablet 9 mg PO SUSA 07/13/23 10/12/23 10/11/23 History furosemide 40 mg tablet 40 mg PO DAILY 08/05/23 10/12/23 10/11/23 History Physical Exam 2 Vital Signs: Vital Signs: Last Vital Signs Temp 98.6 F 03/11/23 16:31 Pulse 100 03/11/23 16:31 Resp 18 03/11/23 16:31 BP 113/57 L 03/11/23 16:31 Pulse Ox 98 03/11/23 16:31 O2 Del Method Room Air 03/11/23 16:31 BMI result Body Mass Index 40.5 Const: General: no acute distress Nutritional Appearance: obese O rientation/consciousness: patient oriented x3 Limitations: language barrier HEENT: Head: Yes normal to inspection Ears: hearing grossly normal bilaterally Eyes: Sclerae: sclerae normal Pupils: Equal, round and reactive pupils present Neck: Neck: Yes normal visual inspection Chest: Chest palpation & inspection: normal inspection of the chest Resp: Effort & Inspection: normal respiratory effort Auscultation: clear to auscultation bilaterally Cardio: Palpation: normal PMI Rate: regular rate Rhythm: regular rhythm Heart sounds: S1 normal heart sound present, S2 normal heart sound present and no murmurs GI: Inspection: Yes distended (moderately distended due to ascites) P alpation (GI): Soft to palpation, Tenderness to palpation present (GI) (Mild lower abdominal tenderness) and No hepatosplenomegaly present Auscultation: n ormal bowel sounds Rectal Exam - Female: deferred Skin: General skin exam: no rashes or lesions noted Neuro: General: patient oriented x3, gait normal and moves all extremities Cranial nerves: Yes Equal, round and reactive pupils present Extrem: General: Yes pedal edema (bilateral chronic non-pitting edema (since tm for cervical ca) Psych: Appearance: grossly normal Mental Status: mental status grossly normal Results Labs 03/14/23 07:08 03/14/23 07:08 Labs: Short CBC 03/10/23 03/11/23 Range/Units 21:10 09:57 WBC 4.6 L 4.0 L (4.8-10.8) X10*3/uL Hgb 13.9 D 13.7 (12.0-16.0) g/dl Hct 41.6 D 41.4 (37.0-47.0) % Plt Count 253 234 (160-400) X10*3/uL BMP 03/10/23 03/11/23 21:10 09:57 Sodium 121 L 122 L Potassium 3.8 4.1 Chloride 82 L 90 L Carbon Dioxide 25 21 L BUN 23 H 27 H Creatinine 1.69 H 2.44 H Calcium 9.5 D 9.1 Liver Function 03/10/23 Range/Units 21:10 Total Bilirubin 0.7 (0.0-1.0) mg/dL AST 19 (5-31) U/L ALT 13 (0-31) U/L Alkaline Phosphatase 97 (39-117) U/L Albumin 4.2 (3.5-5.0) g/dL Urine 03/11/23 Range/Units 06:29 Urine Color Yellow Urine Appearance Clear Urine pH 7.5 (5.0-9.0) Ur Specific [place] <= 1.005 (1.005-1.025) Urine Protein 300 (3+) H (Neg-Trace) mg/dL Urine Glucose (UA) 100 H (Negative) mg/dL Assessment and Plan (1) Abdominal pain: Status: Resolved (2) Cirrhosis of liver with ascites: Status: Inactive Plan 52 [place]yrgyz-speaking female with morbid obesity, diet-controlled diabetes, stage IIIB cervical cancer (status post radiation chemotherapy complicated by radiation cystitis), extensive lower extremity DVT on Coumadin, schizophrenia, GERD, history of cardiac arrest due to hemorrhagic shock in 2014 and admitted with abdominal pain, non-projectile emesis and decreased urine output. UA showed 3+ protein urea. I suspect ascites is related to underlying kidney disease since she has normal LFTs, platelet count and albumin. Prothrombin time is elevated due to warfarin Pt was hospitalized with similar symptoms on December, and diagnosed to have cirrhosis with suspected HRS Etiology of cirrhosis is unclear - most likely due to MALDONADO associated with morbid obesity and diabetes mellitus. Past rosa for cirrhosis showed negative hepatitis-B and C serologies, normal ROX, AMA, anti smooth muscle antibody, iron studies and celiac serologies Ascitic fluid analysis on past admission was consistent with portal hypertension without SBP Meld score of 24 and MELD Na of 30. RECOMMENDATIONS: 1. Agree with IV pain medications and antiemetics 2 Check liver fibrosis test - added to am labs 3. Agree with continuing midodrine, as per Nephrology recommendation. 4. Therapeutic paracentesis with ascitic fluid analysis for cell count, diff and albumin levels - scheduled on 03/14/23 since IR unable to schedule today Procedures Date of Service Date of Service: 10/13/23
[2023-03-11 18:47] LABS: Creatinine Urine 20.58 mg/dL; Total Protein Urine Random < 7 mg/dL (<12)
[2023-03-11] MEDS: Albumin Human 25 % 100 ML IV (20:33)
[2023-03-11 21:42] LABS: Osmolality, Serum 279 mosm/kg (281-305)
[2023-03-11 21:43] LABS: Anion Gap 17 (12-20); Blood Urea Nitrogen 16 mg/dL (9-16); Carbon Dioxide 24 mmol/L (22-29); Chloride 99 mmol/L (96-108); Creatinine Clr Calc Pharmacy 60.8; Estimated Glomerular Filt Rate 45; Glucose Random 98 mg/dL (60-115); Potassium 3.6 mmol/L (3.3-5.1); Sodium 136 mmol/L (135-145)
[2023-03-12 01:29] LABS: Sodium Urine Random < 20.0 mmol/L
[2023-03-12 02:18] LABS: Creatinine Urine 67.84 mg/dL
[2023-03-12 02:19] LABS: Osmolality Urine 280 mosm/kg (373-1093)
[2023-03-12 03:15] VITALS: BP 113/58; PULSE 84; RESP 20; TEMP 36.7; O2SAT 95
[2023-03-12 07:40] LABS: Basophils Percent Auto 0.4 % (0-2); Eosinophils Percent Auto 0.4 % (0-4); Hematocrit 37.8 % (37.0-47.0); Hemoglobin 12.5 g/dl (12.0-16.0); Imm Gran Abs Auto 0.01 X10*3/uL (0.00-0.03); Imm Gran Pct Auto 0.4 % (0.0-0.4); Lymphocytes Absolute Auto 0.8 X10*3/uL (1.2-4.9); Lymphocytes Percent Auto 34.6 % (20-40); MANUAL DIFF FLAG SCAN; Mean Corpuscular HGB Conc 33.1 g/dl (31.0-35.0); Mean Corpuscular Hemoglobin 27.5 pg (27.0-33.0); Mean Corpuscular Volume 83.3 fL (80.0-98.0); Mean Platelet Volume 10.3 fL (9.4-12.3); Monocytes Absolute Auto 0.3 X10*3/uL (0.1-1.2); Monocytes Percent Auto 13.4 % (2-11); Neutrophils Absolute Auto 1.2 x10*3/uL (2.0-8.3); Neutrophils Percent Auto 50.8 % (45-73); Platelet Count 224 X10*3/uL (160-400); Red Blood Count 4.54 X10*6/uL (4.20-5.50); Red Cell Distribution Width 13.7 % (11.0-16.0); SCAN SMEAR FLAG 1; White Blood Count 2.3 X10*3/uL (4.8-10.8)
[2023-03-12 07:55] LABS: Alanine Aminotransferase 9 U/L (0-31); Albumin Level 3.8 g/dL (3.5-5.0); Alkaline Phosphatase 85 U/L (39-117); Anion Gap 14 (12-20); Aspartate Amino Transferase 10 U/L (5-31); Bilirubin Total 0.5 mg/dL (0.0-1.0); Blood Urea Nitrogen 8 mg/dL (9-16); Calcium 8.5 mg/dL (8.4-10.2); Carbon Dioxide 26 mmol/L (22-29); Chloride 102 mmol/L (96-108); Creatinine Clr Calc Pharmacy 104.9; Estimated Glomerular Filt Rate > 60; Glucose Random 92 mg/dL (60-115); Magnesium 2.3 mg/dL (1.6-2.6); Potassium 3.5 mmol/L (3.3-5.1); Sodium 138 mmol/L (135-145); Total Protein 6.6 g/dL (6.5-8.0)
[2023-03-12 08:11] LABS: SLIDE REVIEW VERIFIED
[2023-03-12] MEDS: 0.9 % Sodium Chloride Flush 3 ML SYRINGE IVFLUSH ×2 (09:17→17:18)
[2023-03-12] MEDS: Albumin Human 25 % 100 ML IV ×3 (09:17→21:05)
[2023-03-12] MEDS: Escitalopram Oxalate 20 MG TABLET PO (09:25)
[2023-03-12] MEDS: buPROPion HCl XL 300 MG TAB.ER.24H PO (09:25)
[2023-03-12] MEDS: Midodrine HCl 10 MG TABLET PO ×3 (09:25→20:51)
[2023-03-12] MEDS: buPROPion HCl XL 150 MG TAB.ER.24H PO (09:26)
[2023-03-12 10:00] VITALS: BP 92/61; PULSE 95; RESP 20; TEMP 36.3; O2SAT 97
[2023-03-12 14:00] VITALS: BP 100/63; PULSE 80; RESP 20; TEMP 36.3; O2SAT 97
--- NOTE | 2023-03-12 16:42 | HO.PM.IMPN ---
Subjective Subjective Date of Service: 03/12/23 Interval History: being followed for acute renal failure and hypokalemia associated with abdominal pain nausea and vomiting today patient is feeling fine has mild nausea no further episodes of vomiting tolerating diet had epigastric discomfort this morning but now resolved no fevers no chills has put out greater than 3 L of urine in last 24 hours. complaining of dry skin dorsum of both hands. Review of Systems all other system reviewed and negative Physical Exam Vital Signs: Vital Signs: Last Vital Signs Temp 97.3 F 03/12/23 14:00 Pulse 80 03/12/23 14:00 Resp 20 03/12/23 14:00 BP 100/63 03/12/23 14:00 Pulse Ox 97 03/12/23 14:00 O2 Del Method Room Air 03/12/23 14:00 BMI result Body Mass Index 40.5 Const: Other: General awake alert x3, resting comfortably in no acute distress. anicteric sclera Neck no JVD. CVS regular rate rhythm, Respiratory lungs clear to auscultation, no respiratory distress, no wheeze, no rhonchi. Gastrointestinal abdomen soft, non tender, bowel sounds audible, no guarding , no rigidity. Extremities no pitting edema. Neuro nonfocal . Skin dry scaly skin dorsum of both hands psych appropriate affect. Objective Data Active Medications Acetaminophen (Acetaminophen 325 Mg Tablet) 650 mg PO Q6H PRN PRN Reason: Pain, Mild (Pain Scale 1-3) Al Hydroxide/Mg Hydroxide (Magnesium Hydrox/Alum Hydrox 30 Ml Oral.Susp) 30 ml PO Q4H PRN PRN Reason: Heartburn/Nausea Benztropine Mesylate (Benztropine Mesylate 0.5 Mg Tablet) 0.5 mg PO BID PRN PRN Reason: pt unsure Bupropion HCl (Bupropion Hcl Xl 150 Mg Tab.Er.24h) 150 mg PO DAILY [facility] Last Admin: 03/12/23 09:26 Dose: 150 mg Documented By: BRENDA Bupropion HCl (Bupropion Hcl Xl 300 Mg Tab.Er.24h) 300 mg PO DAILY [facility] Last Admin: 03/12/23 09:25 Dose: 300 mg Documented By: BRENDA Escitalopram Oxalate (Escitalopram Oxalate 20 Mg Tablet) 20 mg PO DAILY [facility] Last Admin: 03/12/23 09:25 Dose: 20 mg Documented By: BRENDA Hydromorphone HCl (Hydromorphone Hcl 0.5 Mg/0.5 Ml Syringe) 0.25 mg IVPUSH Q4H PRN; Protocol PRN Reason: Pain, Severe (Pain Scale 7-10) Last Admin: 03/11/23 18:22 Dose: 0.25 mg Documented By: FARIHA Hydroxyzine HCl (Hydroxyzine Hcl 25 Mg Tablet) 25 mg PO TID PRN PRN Reason: Anxiety Promethazine HCl 6.25 mg/ (Sodium Chloride) 50.25 mls @ 201 mls/hr IV Q6H PRN PRN Reason: Nausea and Vomiting Last Infusion: 03/11/23 16:21 Dose: Infused Documented By: FARIHA Albumin Human (Kedbumin 25 %) 100 mls @ 100 mls/hr IV TID [facility] Stop: 03/12/23 21:59 Last Admin: 03/12/23 14:38 Dose: 100 mls/hr Documented By: BRENDA Melatonin (Melatonin 3 Mg Tablet) 6 mg PO BEDTIME PRN PRN Reason: Insomnia Midodrine (Midodrine Hcl 10 Mg Tablet) 10 mg PO TID [facility] Last Admin: 03/12/23 14:39 Dose: 10 mg Documented By: BRENDA Ondansetron HCl (Ondansetron Hcl 4 Mg/2 Ml Vial) 4 mg IVPUSH Q8H PRN PRN Reason: Nausea and Vomiting Last Admin: 03/11/23 09:27 Dose: 4 mg Documented By: FARIHA Sodium Chloride (0.9 % Sodium Chloride Flush 3 Ml Syringe) 3 ml IVFLUSH QSHIFT [facility] Last Admin: 03/12/23 09:17 Dose: 3 ml Documented By: BRENDA Warfarin Sodium (Warfarin Sodium 7.5 Mg Tablet) 7.5 mg PO DAILY@1800 [facility] Labs 03/12/23 07:25 03/12/23 07:25 Labs: Laboratory Results - last 24 hr 03/11/23 03/11/23 03/12/23 18:15 21:21 01:00 MCV MCH MCHC RDW Plt Count MPV Immature Gran % (Auto) Neut % (Auto) Lymph % (Auto) [place] % (Auto) Eos % (Auto) Baso % (Auto) Lymph # (Auto) [place] # (Auto) Eos # (Auto) Baso # (Auto) Abs Immat Gran (auto) Absolute Neuts (auto) Absolute Nucleated RBC Nucleated RBC % (auto) Smear Tech's Comments Anion Gap 17 Estim Creat Clear Calc 60.8 Estimated GFR 45 Random Glucose 98 Osmolality 279 L Calcium 9.0 Magnesium Total Bilirubin AST ALT Alkaline Phosphatase Total Protein Albumin Urine Osmolality 280 L U Random Total Protein < 7 Ur Random Sodium < 20.0 Urine Creatinine 20.58 67.84 03/12/23 03/12/23 03/12/23 07:25 07:25 07:25 MCV 83.3 MCH 27.5 MCHC 33.1 RDW 13.7 Plt Count 224 MPV 10.3 Immature Gran % (Auto) 0.4 Neut % (Auto) 50.8 Lymph % (Auto) 34.6 [place] % (Auto) 13.4 H Eos % (Auto) 0.4 Baso % (Auto) 0.4 Lymph # (Auto) 0.8 L [place] # (Auto) 0.3 Eos # (Auto) 0.0 Baso # (Auto) 0.0 Abs Immat Gran (auto) 0.01 Absolute Neuts (auto) 1.2 L Absolute Nucleated RBC 0.000 Nucleated RBC % (auto) 0.0 Smear Tech's Comments VERIFIED Anion Gap 14 Cancelled Estim Creat Clear Calc 104.9 Cancelled Estimated GFR > 60 Random Glucose Osmolality Calcium Magnesium Total Bilirubin AST ALT Alkaline Phosphatase Total Protein Albumin Urine Osmolality U Random Total Protein Ur Random Sodium Urine Creatinine 03/12/23 03/12/23 03/12/23 07:25 07:25 07:25 MCV MCH MCHC RDW Plt Count MPV Immature Gran % (Auto) Neut % (Auto) Lymph % (Auto) [place] % (Auto) Eos % (Auto) Baso % (Auto) Lymph # (Auto) [place] # (Auto) Eos # (Auto) Baso # (Auto) Abs Immat Gran (auto) Absolute Neuts (auto) Absolute Nucleated RBC Nucleated RBC % (auto) Smear Tech's Comments Anion Gap Estim Creat Clear Calc Estimated GFR Cancelled Random Glucose 92 Cancelled Osmolality Calcium 8.5 Cancelled Magnesium 2.3 Total Bilirubin 0.5 AST 10 ALT 9 Alkaline Phosphatase 85 Total Protein 6.6 Albumin 3.8 Urine Osmolality U Random Total Protein Ur Random Sodium Urine Creatinine Microbiology Microbiology Results: Microbiology 03/11/23 Unknown Urine Culture - Final Urine clean catch - Urine elliott top No growth. Assessment and Plan (1) Acute kidney injury: Status: Acute (2) Abdominal pain: Status: Acute (3) Acute hyponatremia: Status: Acute (4) DVT (deep venous thrombosis): Status: Acute Plan 52 year old obese female with history of decompensated liver cirrhosis due to MALDONADO, diet controlled T2DM, Stage IIIB cervical cancer, GERD, Schizophrenia, bilateral lower extremity lymphedema and DVT on Coumadin INR 2.3 here with acute onset of abdominal pain of 2 days duration along with abdominal distension nausea vomiting and decreased urine output workup in the ED showed, positive COVID-19 PCR test, hyponatremia sodium of 121 mmol/L and renal failure with a BUN of 23 mg/dL & creatinine of 1.69 mg/dL (last creatinine on 01/11 was 0.6). urine osmolality 162, serum osmolality 260, normal LFTs, She was started on anti-emetics and IV fluids and admission requested. 1. Acute renal failure - renal function normalized rapidly after placement of Mcallister catheter likely symptoms due to obstructive uropathy renal ultrasound showed Mild caliectasis left kidney, right kidney is unremarkable, trace free fluid seen between the right kidney and liver noted to have urine protein of 300 mg, less than 20 rental sodium, urine creatinine 67.84 will discuss further treatment plan with Nephrology continue midodrine and discontinue IV albumin encourage out of bed to chair will continue Mcallister catheter recommend outpatient follow-up with Urology 2. Hyponatremia - asymptomatic, likely due to liver cirrhosis, sodium normalized. 3. COVID-19 - noted with COVID-19 infection, no hypoxia follow clinical course 4. Abdominal pain - acute onset of abdominal pain and distension likely due to urinary retention with distended urinary bladder, abdominal pain resolved abdominal ultrasound showed moderate ascites both lower quadrants, patient asymptomatic with soft abdomen nontender less likely SBP will hold off on paracentesis 5. H/O DVT - on Coumadin with therapeutic INR, patient unaware of dosage but recalls but she takes 8 mg of Coumadin therefore will place her on 7.5 mg of Coumadin and follow PT INR daily 6. eczema both hands will place on Kenalog cream b.i.d. patient need continued inpatient hospitalization for monitoring of acute renal failure and abdominal pain , need close electrolyte monitoring. Quality Stroke Does the patient have a stroke diagnosis?: No VTE Prior VTE?: No VTE Risk Level:: Medical - moderate - high VTE Device Contraindication: N/A - Device Ordered VTE Drug Contraindication: N/A - Med Ordered
[2023-03-12 17:12] VITALS: BP 105/53; PULSE 84; RESP 18; TEMP 36.6; O2SAT 98
[2023-03-12] MEDS: Warfarin Sodium 7.5 MG TABLET PO (17:33)
--- NOTE | 2023-03-12 17:50 | P.PNNP_ITS ---
Subjective Subjective Date of Service: 03/13/23 Interval history: Made 3L UO after francisco placed; US supports obstructive nephropathy Had low FeNa so also prerenal component Rapid correction of serum sodium Physical Exam 2 Vital Signs: Vital Signs: Last Vital Signs Temp 97.9 F 03/12/23 17:12 Pulse 84 03/12/23 17:12 Resp 18 03/12/23 17:12 BP 105/53 L 03/12/23 17:12 Pulse Ox 98 03/12/23 17:12 O2 Del Method Room Air 03/12/23 17:12 BMI result Body Mass Index 40.5 Const: Other: General awake alert x3, resting comfortably in no acute distress. anicteric sclera Neck no JVD. CVS regular rate rhythm, Respiratory lungs clear to auscultation, no respiratory distress, no wheeze, no rhonchi. Gastrointestinal abdomen soft, non tender, bowel sounds audible, no guarding , no rigidity. Extremities no pitting edema. Neuro nonfocal . Skin dry scaly skin dorsum of both hands psych appropriate affect. General: no acute distress Nutritional Appearance: obese O rientation/consciousness: patient oriented x3 Limitations: language barrier HEENT: Head: Yes normal to inspection Ears: hearing grossly normal bilaterally Eyes: Sclerae: sclerae normal Pupils: Equal, round and reactive pupils present Neck: Neck: Yes normal visual inspection Chest: Chest palpation & inspection: normal inspection of the chest Resp: Effort & Inspection: normal respiratory effort Auscultation: clear to auscultation bilaterally Cardio: Palpation: normal PMI Rate: regular rate Rhythm: regular rhythm Heart sounds: S1 normal heart sound present, S2 normal heart sound present and no murmurs GI: Inspection: Yes distended (moderately distended due to ascites) P alpation (GI): Soft to palpation, Tenderness to palpation present (GI) (Mild lower abdominal tenderness) and No hepatosplenomegaly present Auscultation: n ormal bowel sounds Rectal Exam - Female: deferred Skin: General skin exam: no rashes or lesions noted Neuro: General: patient oriented x3, gait normal and moves all extremities Cranial nerves: Yes Equal, round and reactive pupils present Extrem: General: Yes pedal edema (bilateral chronic non-pitting edema (since tm for cervical ca) Psych: Appearance: grossly normal Mental Status: mental status grossly normal Objective Data Labs 03/12/23 07:25 12/17/23 06:55 Labs: Laboratory Results - last 24 hr 03/11/23 03/11/23 03/12/23 18:15 21:21 01:00 WBC RBC Hgb Hct MCV MCH MCHC RDW Plt Count MPV Immature Gran % (Auto) Neut % (Auto) Lymph % (Auto) [place] % (Auto) Eos % (Auto) Baso % (Auto) Lymph # (Auto) [place] # (Auto) Eos # (Auto) Baso # (Auto) Abs Immat Gran (auto) Absolute Neuts (auto) Absolute Nucleated RBC Nucleated RBC % (auto) Smear Tech's Comments Sodium 136 Potassium 3.6 Chloride 99 Carbon Dioxide 24 Anion Gap 17 BUN 16 Creatinine 1.26 Estim Creat Clear Calc 60.8 Estimated GFR 45 Random Glucose 98 Osmolality 279 L Calcium 9.0 Magnesium Total Bilirubin AST ALT Alkaline Phosphatase Total Protein Albumin Urine Osmolality 280 L U Random Total Protein < 7 Ur Random Sodium < 20.0 Urine Creatinine 20.58 67.84 03/12/23 03/12/23 03/12/23 07:25 07:25 07:25 WBC 2.3 L RBC 4.54 Hgb 12.5 Hct 37.8 MCV 83.3 MCH 27.5 MCHC 33.1 RDW 13.7 Plt Count 224 MPV 10.3 Immature Gran % (Auto) 0.4 Neut % (Auto) 50.8 Lymph % (Auto) 34.6 [place] % (Auto) 13.4 H Eos % (Auto) 0.4 Baso % (Auto) 0.4 Lymph # (Auto) 0.8 L [place] # (Auto) 0.3 Eos # (Auto) 0.0 Baso # (Auto) 0.0 Abs Immat Gran (auto) 0.01 Absolute Neuts (auto) 1.2 L Absolute Nucleated RBC 0.000 Nucleated RBC % (auto) 0.0 Smear Tech's Comments VERIFIED Sodium 138 Cancelled Potassium 3.5 Cancelled Chloride 102 Carbon Dioxide Anion Gap BUN Creatinine Estim Creat Clear Calc Estimated GFR Random Glucose Osmolality Calcium Magnesium Total Bilirubin AST ALT Alkaline Phosphatase Total Protein Albumin Urine Osmolality U Random Total Protein Ur Random Sodium Urine Creatinine 03/12/23 03/12/23 03/12/23 07:25 07:25 07:25 WBC RBC Hgb Hct MCV MCH MCHC RDW Plt Count MPV Immature Gran % (Auto) Neut % (Auto) Lymph % (Auto) [place] % (Auto) Eos % (Auto) Baso % (Auto) Lymph # (Auto) [place] # (Auto) Eos # (Auto) Baso # (Auto) Abs Immat Gran (auto) Absolute Neuts (auto) Absolute Nucleated RBC Nucleated RBC % (auto) Smear Tech's Comments Sodium Potassium Chloride Cancelled Carbon Dioxide 26 Cancelled Anion Gap 14 Cancelled BUN 8 L Creatinine Estim Creat Clear Calc Estimated GFR Random Glucose Osmolality Calcium Magnesium Total Bilirubin AST ALT Alkaline Phosphatase Total Protein Albumin Urine Osmolality U Random Total Protein Ur Random Sodium Urine Creatinine 03/12/23 03/12/23 03/12/23 07:25 07:25 07:25 WBC RBC Hgb Hct MCV MCH MCHC RDW Plt Count MPV Immature Gran % (Auto) Neut % (Auto) Lymph % (Auto) [place] % (Auto) Eos % (Auto) Baso % (Auto) Lymph # (Auto) [place] # (Auto) Eos # (Auto) Baso # (Auto) Abs Immat Gran (auto) Absolute Neuts (auto) Absolute Nucleated RBC Nucleated RBC % (auto) Smear Tech's Comments Sodium Potassium Chloride Carbon Dioxide Anion Gap BUN Cancelled Creatinine 0.73 Cancelled Estim Creat Clear Calc 104.9 Cancelled Estimated GFR > 60 Random Glucose Osmolality Calcium Magnesium Total Bilirubin AST ALT Alkaline Phosphatase Total Protein Albumin Urine Osmolality U Random Total Protein Ur Random Sodium Urine Creatinine 03/12/23 03/12/23 03/12/23 07:25 07:25 07:25 WBC RBC Hgb Hct MCV MCH MCHC RDW Plt Count MPV Immature Gran % (Auto) Neut % (Auto) Lymph % (Auto) [place] % (Auto) Eos % (Auto) Baso % (Auto) Lymph # (Auto) [place] # (Auto) Eos # (Auto) Baso # (Auto) Abs Immat Gran (auto) Absolute Neuts (auto) Absolute Nucleated RBC Nucleated RBC % (auto) Smear Tech's Comments Sodium Potassium Chloride Carbon Dioxide Anion Gap BUN Creatinine Estim Creat Clear Calc Estimated GFR Cancelled Random Glucose 92 Cancelled Osmolality Calcium 8.5 Cancelled Magnesium 2.3 Total Bilirubin 0.5 AST 10 ALT 9 Alkaline Phosphatase 85 Total Protein 6.6 Albumin 3.8 Urine Osmolality U Random Total Protein Ur Random Sodium Urine Creatinine Microbiology Microbiology Results: Microbiology 03/11/23 Unknown Urine clean catch - Urine elliott top Urine Culture - Final No growth. Procedures Date of Service Date of Service: 03/13/23 Assessment & Plan Assessment and plan (1) Acute kidney injury: Status: Acute Assessment and Plan: Rapid correction after francisco placed and caliectasis suggest her abd pain and DAVID were predominantly due to DACOSTA This is her second event over past 2 months She has severe bladder dysfunction and needs urologic workup and may need to learn straight caths Had some degree of prerenal DAVID as well, now resolved (2) Acute hyponatremia: Status: Acute Assessment and Plan: Rapid correction over 24 hrs but in the setting of acute hyponatremia probably low risk Recheck sodium now; consider adding D5W if higher Plan Time Spent With Patient Time: Total time managing care of this patient today ____ minutes. Progress Note: Quality Stroke Does the patient have a stroke diagnosis?: No
[2023-03-12 18:37] LABS: Sodium 139 mmol/L (135-145)
[2023-03-12] MEDS: Triamcinolone Acet 0.1 % Cream 15 GM TUBE 1 APPL TOPICAL (20:50)
[2023-03-12 22:00] VITALS: PULSE 75
[2023-03-13] VITALS (7 sets, daily range): BP systolic 84–118; BP diastolic 52–70; PULSE 61–77; RESP 17–20; TEMP 36.3–37.1; O2SAT 95–100
[2023-03-13] MEDS: 0.9 % Sodium Chloride Flush 3 ML SYRINGE IVFLUSH ×3 (00:17→15:27)
[2023-03-13] MEDS: Zolpidem Tartrate 5 MG TABLET 10 MG PO (00:48)
[2023-03-13 07:36] LABS: INTERNATIONAL NORM RATIO 2.9 (0.9-1.1); Prothrombin Time 35.7 SEC (11.1-13.3)
[2023-03-13 07:50] LABS: Anion Gap 14 (12-20); Blood Urea Nitrogen 7 mg/dL (9-16); Calcium 9.1 mg/dL (8.4-10.2); Carbon Dioxide 28 mmol/L (22-29); Chloride 102 mmol/L (96-108); Estimated Glomerular Filt Rate > 60; Glucose Random 86 mg/dL (60-115); Potassium 3.6 mmol/L (3.3-5.1); Sodium 140 mmol/L (135-145)
[2023-03-13] MEDS: Midodrine HCl 10 MG TABLET PO ×3 (08:20→20:03)
[2023-03-13] MEDS: Escitalopram Oxalate 20 MG TABLET PO (08:20)
[2023-03-13] MEDS: buPROPion HCl XL 300 MG TAB.ER.24H PO (08:20)
[2023-03-13] MEDS: buPROPion HCl XL 150 MG TAB.ER.24H PO (08:20)
[2023-03-13] MEDS: Triamcinolone Acet 0.1 % Cream 15 GM TUBE 1 APPL TOPICAL ×2 (08:21→20:03)
[2023-03-13] MEDS: Dextrose 5 % 1,000 ML 125 ML IVCONT (08:27)
--- NOTE | 2023-03-13 16:57 | HO.PM.IMPN ---
Subjective Subjective Date of Service: 03/13/23 Interval History: history obtained via guest service aide patient denies nausea vomiting, no abdominal pain, complaining of constipation no bowel movement in 4 days Mcallister catheter draining clear urine this morning noted to have soft blood pressures, no lightheadedness or dizziness, does not monitor blood pressures at home. Review of Systems all other system reviewed and negative. Physical Exam Vital Signs: Vital Signs: Last Vital Signs Temp 98.0 F 03/13/23 15:23 Pulse 77 03/13/23 15:23 Resp 20 03/13/23 15:23 BP 91/60 03/13/23 15:23 Pulse Ox 97 03/13/23 15:23 O2 Del Method Room Air 03/13/23 15:23 BMI result Body Mass Index 40.5 Const: Other: General awake alert x3, resting comfortably in no acute distress. anicteric sclera Neck no JVD. CVS regular rate rhythm, Respiratory lungs clear to auscultation, no respiratory distress, no wheeze, no rhonchi. Gastrointestinal abdomen soft, non tender, bowel sounds audible, no guarding , no rigidity, no distension. Extremities no pitting edema. Neuro non focal . Skin dry scaly skin dorsum of both hands psych appropriate affect. Mcallister with dark urine Objective Data Active Medications Acetaminophen (Acetaminophen 325 Mg Tablet) 650 mg PO Q6H PRN PRN Reason: Pain, Mild (Pain Scale 1-3) Al Hydroxide/Mg Hydroxide (Magnesium Hydrox/Alum Hydrox 30 Ml Oral.Susp) 30 ml PO Q4H PRN PRN Reason: Heartburn/Nausea Benztropine Mesylate (Benztropine Mesylate 0.5 Mg Tablet) 0.5 mg PO BID PRN PRN Reason: pt unsure Bupropion HCl (Bupropion Hcl Xl 150 Mg Tab.Er.24h) 150 mg PO DAILY [facility] Last Admin: 03/13/23 08:20 Dose: 150 mg Documented By: BRENDA Bupropion HCl (Bupropion Hcl Xl 300 Mg Tab.Er.24h) 300 mg PO DAILY [facility] Last Admin: 03/13/23 08:20 Dose: 300 mg Documented By: BRENDA Escitalopram Oxalate (Escitalopram Oxalate 20 Mg Tablet) 20 mg PO DAILY [facility] Last Admin: 03/13/23 08:20 Dose: 20 mg Documented By: BRENDA Hydroxyzine HCl (Hydroxyzine Hcl 25 Mg Tablet) 25 mg PO TID PRN PRN Reason: Anxiety Promethazine HCl 6.25 mg/ (Sodium Chloride) 50.25 mls @ 201 mls/hr IV Q6H PRN PRN Reason: Nausea and Vomiting Last Infusion: 03/11/23 16:21 Dose: Infused Documented By: FARIHA Melatonin (Melatonin 3 Mg Tablet) 6 mg PO BEDTIME PRN PRN Reason: Insomnia Midodrine (Midodrine Hcl 10 Mg Tablet) 10 mg PO TID [facility] Last Admin: 03/13/23 15:26 Dose: 10 mg Documented By: BRENDA Ondansetron HCl (Ondansetron Hcl 4 Mg/2 Ml Vial) 4 mg IVPUSH Q8H PRN PRN Reason: Nausea and Vomiting Last Admin: 03/11/23 09:27 Dose: 4 mg Documented By: FARIHA Sodium Chloride (0.9 % Sodium Chloride Flush 3 Ml Syringe) 3 ml IVFLUSH QSHIFT [facility] Last Admin: 03/13/23 15:27 Dose: 3 ml Documented By: BRENDA Triamcinolone Acetonide (Triamcinolone Acet 0.1 % Cream 15 Gm Tube) 1 appl TOPICAL BID [facility]; Protocol Last Admin: 03/13/23 08:21 Dose: 1 appl Documented By: BRENDA Warfarin Sodium (Warfarin Sodium 5 Mg Tablet) 5 mg PO DAILY@1800 [facility] Zolpidem Tartrate (Zolpidem Tartrate 5 Mg Tablet) 10 mg PO BEDTIME PRN PRN Reason: Insomnia Last Admin: 03/13/23 00:48 Dose: 10 mg Documented By: LIZ Labs 03/12/23 07:25 03/13/23 06:55 Labs: Laboratory Results - last 24 hr 03/13/23 06:55 Hold Purple Top SEE NOTE PT 35.7 H D INR 2.9 H Anion Gap 14 Estim Creat Clear Calc 116.0 Estimated GFR > 60 Random Glucose 86 Calcium 9.1 D Microbiology Microbiology Results: Microbiology 03/11/23 Unknown Urine Culture - Final Urine clean catch - Urine elliott top No growth. Assessment and Plan (1) Acute kidney injury: Status: Acute (2) Abdominal pain: Status: Acute (3) Acute hyponatremia: Status: Acute (4) DVT (deep venous thrombosis): Status: Acute Plan 52 year old obese female with history of decompensated liver cirrhosis due to MALDONADO, diet controlled T2DM, Stage IIIB cervical cancer, GERD, Schizophrenia, bilateral lower extremity lymphedema and DVT on Coumadin INR 2.3 here with acute onset of abdominal pain of 2 days duration along with abdominal distension nausea vomiting and decreased urine output workup in the ED showed, positive COVID-19 PCR test, hyponatremia sodium of 121 mmol/L and renal failure with a BUN of 23 mg/dL & creatinine of 1.69 mg/dL (last creatinine on 01/11 was 0.6). urine osmolality 162, serum osmolality 260, normal LFTs, She was started on anti-emetics and IV fluids and admission requested. 1. Acute renal failure - renal function normalized rapidly after placement of Mcallister catheter likely symptoms due to obstructive uropathy/ bladder outlet obstruction with history of pelvic radiation renal ultrasound showed Mild caliectasis left kidney, right kidney is unremarkable, trace free fluid seen between the right kidney and liver noted to have urine protein of 300 mg, less than 20 urine sodium suggestive of dehydration,, urine creatinine 67.84 status post 4 dosages of IV albumin Nephrology recommend urology consultation, patient follows with [facility] and has an appointment in March will discharge home with Mcallister catheter continue midodrine , noted to have soft blood pressure which improved with fluids. encourage out of bed to chair spoke with healthcare proxy Melanie Celis , updated her about discharge plan the patient will be coming home with Mcallister catheter that needs to be changed Q monthly and need Urology follow-up. 2. Hyponatremia - noted rapid correction of sodium, will treat with 1 L of IV D5W, repeat sodium at a.m. will DC fluid restriction. 3. COVID-19 - noted with COVID-19 infection, no hypoxia , supportive care 4. Abdominal pain - acute onset of abdominal pain and distension likely due to urinary retention with distended urinary bladder, abdominal pain resolved abdominal ultrasound showed moderate ascites both lower quadrants, clinically does not appear to have abdominal distension or ascites patient asymptomatic with soft abdomen, non tender, less likely SBP will hold off on paracentesis for constipation will give 1 dose of lactulose 5. H/O DVT - on Coumadin with therapeutic INR, patient unaware of dosage but recalls but she takes 8 mg of Coumadin therefore treated with 7.5 mg of Coumadin, INR bumped to 2.9 will reduce dose of Coumadin to 5 mg and follow INR at a.m.,, called healthcare proxy they are also not aware of patient dosages [facility] checks INR Q Fridays and medications adjusted as per MD 6. eczema dorsum of both hands, cont. Kenalog cream b.i.d. patient need continued inpatient hospitalization for monitoring of sodium, and abdominal pain , need close electrolyte monitoring. Quality Stroke Does the patient have a stroke diagnosis?: No VTE Prior VTE?: No VTE Risk Level:: Medical - moderate - high VTE Device Contraindication: N/A - Device Ordered VTE Drug Contraindication: N/A - Med Ordered
[2023-03-13] MEDS: Lactulose 20 GM/30 ML SOLUTION PO (17:40)
[2023-03-13] MEDS: Warfarin Sodium 5 MG TABLET PO (17:40)
[2023-03-14] MEDS: 0.9 % Sodium Chloride Flush 3 ML SYRINGE IVFLUSH ×2 (00:30→08:05)
[2023-03-14] MEDS: Zolpidem Tartrate 5 MG TABLET 10 MG PO (00:30)
[2023-03-14 04:53] VITALS: BP 101/60; PULSE 66; RESP 18; TEMP 36.5; O2SAT 98
[2023-03-14 07:30] LABS: Mean Corpuscular HGB Conc 32.5 g/dl (31.0-35.0); Mean Corpuscular Hemoglobin 28.4 pg (27.0-33.0); Mean Corpuscular Volume 87.3 fL (80.0-98.0); Mean Platelet Volume 10.4 fL (9.4-12.3); Platelet Count 279 X10*3/uL (160-400); Red Blood Count 4.58 X10*6/uL (4.20-5.50); Red Cell Distribution Width 14.3 % (11.0-16.0); White Blood Count 3.8 X10*3/uL (4.8-10.8)
[2023-03-14 07:35] LABS: Glucose, Whole Blood 93 mg/dL (60-115)
[2023-03-14 07:37] LABS: INTERNATIONAL NORM RATIO 2.4 (0.9-1.1); Prothrombin Time 29.1 SEC (11.1-13.3)
[2023-03-14 07:44] LABS: Anion Gap 15 (12-20); Blood Urea Nitrogen 8 mg/dL (9-16); Calcium 9.5 mg/dL (8.4-10.2); Carbon Dioxide 27 mmol/L (22-29); Chloride 102 mmol/L (96-108); Creatinine Clr Calc Pharmacy 107.9; Estimated Glomerular Filt Rate > 60; Glucose Random 96 mg/dL (60-115); Potassium 3.5 mmol/L (3.3-5.1); Sodium 140 mmol/L (135-145)
[2023-03-14 08:00] VITALS: BP 101/57; PULSE 64; RESP 17; TEMP 36.4; O2SAT 98
[2023-03-14] MEDS: buPROPion HCl XL 300 MG TAB.ER.24H PO (08:04)
[2023-03-14] MEDS: Midodrine HCl 10 MG TABLET PO ×2 (08:04→14:28)
[2023-03-14] MEDS: Escitalopram Oxalate 20 MG TABLET PO (08:05)
[2023-03-14] MEDS: buPROPion HCl XL 150 MG TAB.ER.24H PO (08:05)
[2023-03-14] MEDS: Triamcinolone Acet 0.1 % Cream 15 GM TUBE 1 APPL TOPICAL (08:06)
--- NOTE | 2023-03-14 11:05 | P.PNNP_ITS ---
Subjective Subjective Date of Service: 03/14/23 Interval history: Comfortable patient denies nausea vomiting, no abdominal pain, complaining of constipation no bowel movement in 4 days Francisco catheter draining clear urine Physical Exam 2 Vital Signs: Vital Signs: Last Vital Signs Temp 97.5 F 03/14/23 08:00 Pulse 64 03/14/23 08:00 Resp 17 03/14/23 08:00 BP 101/57 L 03/14/23 08:00 Pulse Ox 98 03/14/23 08:00 O2 Del Method Room Air 03/14/23 08:00 BMI result Body Mass Index 40.5 Const: Other: General awake alert x3, resting comfortably in no acute distress. anicteric sclera Neck no JVD. CVS regular rate rhythm, Respiratory lungs clear to auscultation, no respiratory distress, no wheeze, no rhonchi. Gastrointestinal abdomen soft, non tender, bowel sounds audible, no guarding , no rigidity, no distension. Extremities no pitting edema. Neuro non focal . Skin dry scaly skin dorsum of both hands psych appropriate affect. Francisco with dark urine Objective Data Labs 03/14/23 07:08 03/14/23 07:08 Labs: Laboratory Results - last 24 hr 03/14/23 03/14/23 07:08 07:27 WBC 3.8 L RBC 4.58 Hgb 13.0 Hct 40.0 MCV 87.3 MCH 28.4 MCHC 32.5 RDW 14.3 Plt Count 279 MPV 10.4 Absolute Nucleated RBC 0.000 Nucleated RBC % (auto) 0.0 PT 29.1 H INR 2.4 H Sodium 140 Potassium 3.5 Chloride 102 Carbon Dioxide 27 Anion Gap 15 BUN 8 L Creatinine 0.71 Estim Creat Clear Calc 107.9 Estimated GFR > 60 POC Glucose 93 Random Glucose 96 Calcium 9.5 Microbiology Microbiology Results: Microbiology 03/11/23 Unknown Urine clean catch - Urine elliott top Urine Culture - Final No growth. Procedures Date of Service Date of Service: 03/14/23 Assessment & Plan Assessment and plan (1) Acute kidney injury: Status: Acute Assessment and Plan: Rapid correction after francisco placed and caliectasis suggest her abd pain and DAVID were predominantly due to DACOSTA This is her second event over past 2 months She has severe bladder dysfunction and needs urologic f/u up and may need to learn straight caths Had some degree of prerenal DAVID as well, now resolved will sign off (2) Acute hyponatremia: Status: Acute Assessment and Plan: Rapid correction over 24 hrs but in the setting of acute hyponatremia probably low risk Recheck sodium now; consider adding D5W if higher Plan Time Spent With Patient Time: Total time managing care of this patient today ____ minutes. Progress Note: Quality Stroke Does the patient have a stroke diagnosis?: No
[2023-03-14 12:00] VITALS: BP 126/65; PULSE 68; RESP 18; TEMP 37.3; O2SAT 100
--- NOTE | 2023-03-14 13:27 | MHC.CM.PN ---
Patient will be medically cleared for dc to home today, with services;[facility] has been notified of today's dc.
--- NOTE | 2023-03-14 13:38 | PM.DS ---
DS: Providers Provider Date of Service: 03/14/23 Date of admission: 03/11/23 03:20 Date of discharge: 03/14/23 Primary care physician: Kristin Todd MD Consults: 03/11/23 07:35 Consult to Nephrology Routine Consulting Provider: [facility] Reason for consultation: arf/hyponatremia Has provider been notified: No 03/11/23 10:46 Consult to Gastroenterology Routine Consulting Provider: Felipe Andino Reason for consultation: ascites cirrhosis Has provider been notified: No DS: Diagnosis Discharge Diagnosis (1) Acute kidney injury: Status: Acute (2) Acute hyponatremia: Status: Acute DS: Summary Hospital Course Hospital Course: Patient is a 52 year old obese female with history of decompensated liver cirrhosis due to MALDONADO, diet controlled T2DM, Stage IIIB cervical cancer, GERD, Schizophrenia, bilateral lower extremity lymphedema and DVT on Coumadin who presented to the emergency room accompanied by her daughter who was assisting with the history complaining of severe (10/10) abdominal pain since 5 AM this morning when she woke up. This was associated with abdominal 'tension'. The pain gradually improved and by 7 AM, when her daughter left for work, it was tolerable. However, when her daughter got back home at 6 PM, she continued to report feeling generally unwell with persistent though tolerable abdominal pain (she rated at a 5/10) with associated non-projectile emesis and decreased urine output. Initial work up done in the emergency room was notable for a positive COVID-19 PCR test, hyponatremia with a serum sodium of 121 mmol/L and renal failure with a BUN of 23 mg/dL & creatinine of 1.69 mg/dL (last creatinine on 01/11 was 0.6). Hospital Course Admitted to telemetry and seen in consultation by Nephrology. Renal function and pain essentially resolved with placement of Mcallister catheter/volume repletion. Hyponatremia resolved secondary to volume repletion. At this time she is totally asymptomatic, afebrile without a white count. Discussed with urology; be discharged with Mcallister to follow-up in the office for further workup. Time Attestation Discharge coordination time: Greater than 30 minutes Quality: Safe Use of Opioids Does Pt have an Active Cancer Diagnosis on the Problem List?: Yes Opioid Measure Date for CMS Report: 02/12/23 Opioid Measure Time for CMS Report: 13:42 Quality: Stroke Does the patient have a stroke diagnosis?: No Physical Exam Vital Signs: Vital Signs: Last Vital Signs Temp 99.1 F 03/14/23 12:00 Pulse 68 03/14/23 12:00 Resp 18 03/14/23 12:00 BP 126/65 03/14/23 12:00 Pulse Ox 100 03/14/23 12:00 O2 Del Method Room Air 03/14/23 12:00 BMI result Body Mass Index 40.5 Const: Other: Awake alert no acute distress Resp: Other: Clear to auscultation bilaterally no rales rhonchi or wheezes Cardio: Other: No S4; positive S1-S2; no S3 murmurs rubs gallops GI: Other: Soft nontender nondistended normoactive bowel sounds Extrem: Other: No edema bilaterally DS: Data Data Completed and Pending Completed studies during hospitalization [Text1]: Procedures Drainage of Peritoneal Cavity, Percutaneous Approach (01/03/23) Labs on day of discharge: Laboratory Results - last 24 hr 03/14/23 03/14/23 07:08 07:27 WBC 3.8 L RBC 4.58 Hgb 13.0 Hct 40.0 MCV 87.3 MCH 28.4 MCHC 32.5 RDW 14.3 Plt Count 279 MPV 10.4 Absolute Nucleated RBC 0.000 Nucleated RBC % (auto) 0.0 PT 29.1 H INR 2.4 H Sodium 140 Potassium 3.5 Chloride 102 Carbon Dioxide 27 Anion Gap 15 BUN 8 L Creatinine 0.71 Estim Creat Clear Calc 107.9 Estimated GFR > 60 POC Glucose 93 Random Glucose 96 Calcium 9.5 Discharge Plan Discharge Anticipated Discharge Date/Time: 03/14/23 13:32 Patient Disposition: Home Health Service Discharge Diagnosis: Obstructive uropathy Referrals: [facility] [Outside] - 1 Week Kristin Todd MD [Primary Care Provider] - 1 Week Discharge Medications: Continued furosemide 40 mg tablet 40 mg PO DAILY benztropine 0.5 mg tablet 0.5 mg PO BID PRN (Reason: pt unsure) citalopram 40 mg tablet 40 mg PO QAM zolpidem 10 mg tablet 10 mg PO BEDTIME PRN (Reason: Insomnia) loratadine 10 mg tablet 10 mg PO DAILY hydroxyzine pamoate 25 mg capsule 25 mg PO TID PRN (Reason: Anxiety) midodrine 10 mg tablet 10 mg PO TID bupropion HCl 200 mg tablet sustained-release 12 hr 200 mg PO BID Risperdal Consta 50 mg/2 mL suspension,extended rel recon 50 mg IM Q2W Rx Instructions: ON FRIDAYS ondansetron HCl 4 mg tablet 4 mg PO Q8H PRN (Reason: Nausea And Vomiting) warfarin 3 mg tablet 3 - 6 mg PO DAILY warfarin 5 mg tablet 5 - 10 mg PO DAILY acetaminophen 325 mg tablet 975 mg PO Q8H PRN (Reason: pain) triamcinolone acetonide 0.025 % ointment 1 appl topical BID Discharge Orders: Discharge Order (Routine); Ordered 03/14/23 Ordered By: Reji Roman Diet: Advance to usual diet Activity on Discharge: As tolerated Stand Alone Forms: Patient Portal Discharge page Care Plan Goals: He will be discharged with Mcallister catheter. Arrange [facility] to assist with catheter care Health Concerns: Follow-up with Dr. Hoff as outpatient. Your PCP can make referral Plan of Treatment: Continue all previous medications as taken before hospital Assessment: See discharge summary
--- NOTE | 2023-03-14 13:44 | P.F2F_ITS ---
Service Date Service Date: 03/14/23 Encounter Date of encounter: 03/14/23 Encounter: Acute hospitalization Reasons for Services Signs and symptoms assessed: Bladder outlet obstruction requiring chronic catheter relation Reason for group home: other (Monitor of cath care and urine output) Homebound: Leaving the home is medically contraindicated at this time without the asist of a device and/or another person due th the listed conditions above and below. Reason homebound: unsteady gait / fall risk and unable to drive Certification: Based on the above findings, I certify that this patient is confined to the home and needs intermittent group home care, physical therapy and/or speech therapy, or continues to need occupational therapy. The patient is under my care, and I have initiated the establishment of the plan of care. The patient will be followed by a physician who will periodically review the plan of care. Time Spent With Patient Time: Total time managing care of this patient today ____ minutes.
--- NOTE | 2023-03-14 13:55 | MHC.CM.PN ---
[facility] is unable to accept Patient back r/t new francisco cath. CM is searching for another V[facility] and will follow.
--- NOTE | 2023-03-14 14:48 | MHC.CM.PN ---
[facility] Patient.
[2023-03-23 01:29] LABS: FIB-ALT 9 U/L (6-29); FIB-Alpha-2-Macroglobulin 127 mg/dL (106-279); FIB-Apolipoprotein A1 113 mg/dL (101-198); FIB-GGT 10 U/L (3-70); FIB-Haptoglobin 275 mg/dL (43-212); FIB-Total Bilirubin 0.5 mg/dL (0.2-1.2); Liver Fibrosis Score 0.05; Liver Fibrosis Stage F0; Nec Inflam Act Grade A0; Nec Inflam Act Score 0.02
== END 2023-03-14 04:00 | disposition home health service (06) | DRG 468 ==
LOC: HO.ED 03-11 01:35 → HO.EDOVER 03-11 03:30 → HO.IMC 03-11 05:49
PROVIDERS: Hospitalist; Internal Medicine Gastroenterology; Internal Medicine Nephrology; Registered Nurse Emergency; Admitting Provider Internal Medicine; Emergency Provider Internal Medicine; PCP Pediatrics; Visit Provider Hospitalist
DX: N32.0 Bladder-neck obstruction (principal); U07.1 COVID-19; R18.8 Other ascites; K74.69 Other cirrhosis of liver; E87.1 Hypo-osmolality and hyponatremia; F20.9 Schizophrenia, unspecified; K21.9 Gastro-esophageal reflux disease without esophagitis; L30.9 Dermatitis, unspecified; K59.00 Constipation, unspecified; K75.81 Nonalcoholic steatohepatitis (NASH); E87.6 Hypokalemia; E11.9 Type 2 diabetes mellitus without complications; E66.01 Morbid (severe) obesity due to excess calories; Z86.718 Personal history of other venous thrombosis and embolism; Z92.21 Personal history of antineoplastic chemotherapy; Z92.3 Personal history of irradiation; Z85.41 Personal history of malignant neoplasm of cervix uteri; Z68.41 Body mass index [BMI] 40.0-44.9, adult; Z79.01 Long term (current) use of anticoagulants; Z79.899 Other long term (current) drug therapy
CPT/HCPCS: 0241U; 36415; 71045; 76705; 76775; 80048; 80053; 81001; 81596; 82570; 82947; 83735; 83930; 83935; 84156; 84295; 84300; 85025; 85027; 85610; 85730; 87086; 99285; C1758; J1170; J2405; J2550; P9047

== ENCOUNTER → 2023-03-11 03:20 | Outpatient (BNV) | payer MEDICAID, SELFPAY | PROVIDERS: Admitting Provider Internal Medicine; Emergency Provider Internal Medicine; PCP Pediatrics; Visit Provider Internal Medicine | DX: N28.9 Disorder of kidney and ureter, unspecified (principal); E87.1 Hypo-osmolality and hyponatremia; R10.9 Unspecified abdominal pain | CPT/HCPCS: 99223; 99233; 99239; 99499; G0180 ==

== ENCOUNTER → 2023-03-11 03:20 | Outpatient (BNV) | payer MEDICAID, SELFPAY | PROVIDERS: Admitting Provider Internal Medicine; Emergency Provider Internal Medicine; PCP Pediatrics; Visit Provider Internal Medicine Gastroenterology | DX: R10.9 Unspecified abdominal pain (principal); K74.60 Unspecified cirrhosis of liver; R18.8 Other ascites | CPT/HCPCS: 99499 ==

== ENCOUNTER 2023-03-22 14:08 | Outpatient (REF) | payer MEDICAID, SELFPAY ==
[2023-03-22 18:18] LABS: Albumin Level 4.6 g/dL (3.5-5.0); Anion Gap 17 (12-20); Blood Urea Nitrogen 15 mg/dL (9-16); Calcium 9.7 mg/dL (8.4-10.2); Carbon Dioxide 30 mmol/L (22-29); Chloride 98 mmol/L (96-108); Estimated Glomerular Filt Rate > 60; Glucose Random 75 mg/dL (60-115); Phosphorus 2.9 mg/dL (2.7-4.5); Potassium 3.9 mmol/L (3.3-5.1); Sodium 141 mmol/L (135-145)
== END 2023-03-22 14:09 | disposition home or self-care (01) ==
LOC: HO.CHCLDS 14:08
PROVIDERS: Visit Provider Family Medicine
DX: N13.9 Obstructive and reflux uropathy, unspecified (principal)
CPT/HCPCS: 36415; 80051; 82040; 82310; 82565; 82947; 84100; 84520

== ENCOUNTER 2023-04-26 13:05 | Outpatient (REF) | payer MEDICAID, SELFPAY ==
[2023-04-26 15:21] LABS: Anion Gap 14 (12-20); Blood Urea Nitrogen 11 mg/dL (9-16); Calcium 9.1 mg/dL (8.4-10.2); Carbon Dioxide 31 mmol/L (22-29); Chloride 98 mmol/L (96-108); Estimated Glomerular Filt Rate > 60; Glucose Random 76 mg/dL (60-115); Potassium 3.1 mmol/L (3.3-5.1); Sodium 140 mmol/L (135-145)
== END 2023-04-26 13:06 | disposition home or self-care (01) ==
LOC: HO.CHCLDS 13:05
PROVIDERS: Visit Provider Internal Medicine
DX: K75.81 Nonalcoholic steatohepatitis (NASH) (principal)
CPT/HCPCS: 36415; 80048

== ENCOUNTER 2023-05-26 14:50 | Outpatient (REF) | payer MEDICAID, SELFPAY ==
[2023-05-26 18:11] LABS: Alanine Aminotransferase 16 U/L (0-31); Albumin Level 4.3 g/dL (3.5-5.0); Alkaline Phosphatase 95 U/L (39-117); Anion Gap 12 (12-20); Aspartate Amino Transferase 18 U/L (5-31); Bilirubin Direct 0.1 mg/dL (0.0-0.5); Bilirubin Total 0.4 mg/dL (0.0-1.0); Blood Urea Nitrogen 16 mg/dL (9-16); Calcium 8.8 mg/dL (8.4-10.2); Carbon Dioxide 31 mmol/L (22-29); Chloride 95 mmol/L (96-108); Estimated Glomerular Filt Rate > 60; Glucose Random 72 mg/dL (60-115); Potassium 3.4 mmol/L (3.3-5.1); Sodium 135 mmol/L (135-145); Total Protein 7.5 g/dL (6.5-8.0)
== END 2023-05-26 14:51 | disposition home or self-care (01) ==
LOC: HO.CHCLDS 14:50
PROVIDERS: Visit Provider Pediatrics
DX: R31.9 Hematuria, unspecified (principal); R74.01 Elevation of levels of liver transaminase levels
CPT/HCPCS: 36415; 80048; 80076

== ENCOUNTER 2023-05-27 09:56 | Outpatient (REF) | payer MEDICAID, SELFPAY ==
[2023-05-27 15:23] LABS: Appearance Urine Clear; Color Urine Yellow; Glucose Urine UA Negative (Negative); Leukocyte Esterase Urine Trace (Negative); Nitrite Urine Negative (Negative); UMIC TRIGGER UACC YES; Urine Blood Negative (Negative); Urine Ketones Negative (Negative); Urine Protein Negative (Neg-Trace)
[2023-05-27 15:30] LABS: Bacteria Urine None Seen (None Seen); Hyaline Casts Urine 0-2 /LPF (0-2); RBC Urine 0-2 /HPF (0-2); Squamous Epithelial Cell Urine 0-2 /HPF (0-2); WBC Urine 0-5 /HPF (0-5)
== END 2023-05-27 09:57 | disposition home or self-care (01) ==
LOC: HO.CHCLNP 09:56
PROVIDERS: Visit Provider Pediatrics
DX: R31.9 Hematuria, unspecified (principal)
CPT/HCPCS: 81001; 81003

== ENCOUNTER → 2023-07-05 08:04 | Outpatient (REF) | payer MEDICAID, SELFPAY ==
--- NOTE | ~2023-07-05 | NM_ITS ---
Myocardial perfusion study Indication: Shortness of breath to evaluate for myocardial ischemia Technique: The patient was brought in for a Lexiscan perfusion study on 07/05/2023. Patient performed low-level exercise and was injected 0.4 mg of Lexiscan intravenously. Within a minute of injection, 35 mCi of sestamibi was given intravenously. Images were obtained using the SPECT gamma camera interlaced with the gating device. Images were obtained in supine position. Resting perfusion study was performed on 07/07/2023. Patient was administered 35 mCi of sestamibi intravenously at rest. Images were then obtained in supine position. Images obtained with and without CT attenuation. Total DLP 35 mGy-cm. Images were processed with the software and compared side to side in short axis, horizontal long axis and vertical long axis views. Findings: Attenuated as well as non attenuated corrected images are suboptimal due to intense liver uptake of the left lobe interfering with inferoseptal and inferior wall uptake. The stress perfusion study showed non attenuated images show mildly reduced uptake in the anterolateral as well as mildly to moderately reduced uptake in the apex and inferoapical wall of the LV myocardium. Attenuation corrected images show mildly reduced uptake in the anterolateral as well as mildly reduced uptake in the apical wall of the LV myocardium. The gated study shows normal LV systolic function with calculated LVEF of 66%. LV cavity is mildly dilated size. The gated study shows normal systolic wall thickening and contraction of segments. Resting study shows both attenuated as well as non attenuated corrected images show improved uptake in the apex and anterolateral wall of the LV myocardium suggestive of reversible defect.. Gating at rest reveals normal systolic wall motion with ejection fraction at 65%. The findings are consistent with suboptimal study due to intense subdiaphragmatic uptake interfering with myocardial uptake but there is suggestion of reversible defect of the anterolateral and apical wall suggestive of ischemia. NM/NM pam perf SPECT rest & str Impression: 1. Myocardial perfusion imaging study shows anterolateral and apical ischemia mild to moderate intensity 2. Gated LVEF is 66% 3. Transient ischemic dilatation not present EKG is nondiagnostic for ischemia
--- NOTE | 2023-07-05 08:09 | CA_ITS ---
Acquisition Time: 2023-07-05 08:08:03 Total Exercise Time: 00:02:00 Test Indications: Dyspnea Medications: SEE H Protocol: LEXISCAN Max HR: 115 BPM 68% of Pred: 169 BPM Max BP: 144/068 mmHG Max Work Load: 1.0 METS Pharmacological stress test with Lexiscan injection while sitting and kicking her legs, without anginal symptoms, without arrhythmias, with normotensive response to injection, with nondiagnoisitic EKGs. Aminophylline 75mg IVP given to reverse Lexiscan. Nuclear images pending. Test reviewed with Dr. Kan. 144/68 BP was typo. BP was 114/68 Referred By: Michael Angel Overread By: Anum Blackwell
== END ==
LOC: HO.CARD 08:04
PROVIDERS: PCP Pediatrics; Visit Provider Internal Medicine Cardiovascular Disease
DX: I89.0 Lymphedema, not elsewhere classified (principal)
CPT/HCPCS: 78452; 93017; A9500; J0280; J2785

== ENCOUNTER → 2023-07-05 08:09 | Outpatient (BNV) | payer MEDICAID, SELFPAY | PROVIDERS: PCP Pediatrics; Visit Provider Nurse Practitioner | DX: R06.02 Shortness of breath (principal) | CPT/HCPCS: 78452; 93016; 93018 ==

== ENCOUNTER 2023-07-12 20:54 | Inpatient (IN) | payer MEDICAID, SELFPAY ==
--- NOTE | ~2023-07-12 | US_ITS ---
Ultrasound paracentesis History: Ascites. Risks and benefits and possible complications were discussed with the patient and consent form was signed. A safe pocket of ascitic fluid was identified using ultrasound guidance, and the overlying skin was marked. The abdomen prepped and draped in sterile fashion. 1% lidocaine was used as a local anesthetic. Using ultrasound guidance, a 5 fr catheter was placed into the ascitic pocket. 1.0 liters of yellow fluid was removed passively. The catheter was then removed. A few international representative images from before and after the examination were obtained. The procedure was performed by Wily Lucero PA-C and supervised by Dr. Montgomery. US/US paracentesis abd w/image Impression: Ultrasound-guided paracentesis as described above. No immediate complications
--- NOTE | ~2023-07-12 | CT_ITS ---
EXAMINATION: CT ABDOMEN AND PELVIS WITHOUT CONTRAST CLINICAL INFORMATION: Upper abdominal pain COMPARISON: 01/27/2023 TECHNIQUE: Multidetector volumetric imaging was performed from the superior aspect of the liver through the pubic symphysis. Sagittal and coronal reformatted images were obtained on the technologist's workstation. This CT examination was performed using dose optimization techniques as appropriate, variously including the following: *Automated exposure control *Adjustment of mA and/or kV according to patient size (this includes techniques or standardized protocols for targeted exams where dose is matched to indication/reason for exam; i.e. extremities or head) *Use of iterative reconstruction technique DLP: 976 mGy-cm FINDINGS: LUNG BASES: Trace right pleural effusion. Subsegmental left basilar atelectasis. LIVER, GALLBLADDER, AND BILIARY TREE: The liver is normal in size, shape, and attenuation. No focal hepatic lesion or biliary ductal dilatation is identified on this noncontrast exam. Gallbladder is grossly unremarkable. PANCREAS: Pancreas appears mildly atrophic. SPLEEN: Unremarkable. ADRENAL GLANDS: Grossly unremarkable. KIDNEYS AND URETERS: No hydronephrosis or obstructing calculus bilaterally. BLADDER: Unremarkable. GASTROINTESTINAL TRACT: No evidence of bowel obstruction or significant wall thickening. Moderate volume of stool in the colon. Moderate volume ascites is new from prior. No free air is seen. ABDOMINAL WALL: Status post ventral hernia repair. Redemonstrated collateral vessels in the left abdominal wall. LYMPH NODES: No lymphadenopathy is seen, though assessment is limited in the absence of intravenous contrast. Fluid collection in the posterior left retroperitoneum with some peripheral calcification measuring up to approximately 4.4 cm in craniocaudal dimension appears without significant change from prior. VASCULAR: Unremarkable. PELVIC VISCERA: Unremarkable. OSSEOUS STRUCTURES: Multilevel degenerative changes in the spine. CT/CT abdomen pelvis wo IV con IMPRESSION: 1. Moderate volume ascites, new from 01/27/2023. 2. Redemonstrated fluid collection in the left retroperitoneum, similar to prior. 3. Trace right pleural effusion.
[2023-07-12 20:56] VITALS: BP 122/73; PULSE 90; RESP 16; TEMP 36.4; O2SAT 96; BMI 46.9
[2023-07-12 22:04] LABS: MANUAL DIFF FLAG NO
[2023-07-12 22:05] LABS: Basophils Percent Auto 0.3 % (0-2); Eosinophils Percent Auto 0.6 % (0-4); Hematocrit 42.2 % (37.0-47.0); Hemoglobin 13.7 g/dl (12.0-16.0); Imm Gran Abs Auto 0.01 X10*3/uL (0.00-0.03); Imm Gran Pct Auto 0.2 % (0.0-0.4); Lymphocytes Absolute Auto 0.8 X10*3/uL (1.2-4.9); Lymphocytes Percent Auto 13.1 % (20-40); Mean Corpuscular HGB Conc 32.5 g/dl (31.0-35.0); Mean Corpuscular Hemoglobin 28.3 pg (27.0-33.0); Mean Corpuscular Volume 87.2 fL (80.0-98.0); Mean Platelet Volume 9.9 fL (9.4-12.3); Monocytes Absolute Auto 0.4 X10*3/uL (0.1-1.2); Monocytes Percent Auto 5.7 % (2-11); Neutrophils Percent Auto 80.1 % (45-73); Platelet Count 226 X10*3/uL (160-400); Red Blood Count 4.84 X10*6/uL (4.20-5.50); Red Cell Distribution Width 14.2 % (11.0-16.0); White Blood Count 6.2 X10*3/uL (4.8-10.8)
[2023-07-12 22:23] LABS: Alanine Aminotransferase 12 U/L (0-31); Albumin Level 4.4 g/dL (3.5-5.0); Alkaline Phosphatase 93 U/L (39-117); Anion Gap 13 (12-20); Aspartate Amino Transferase 16 U/L (5-31); Bilirubin Direct 0.2 mg/dL (0.0-0.5); Bilirubin Total 0.4 mg/dL (0.0-1.0); Blood Urea Nitrogen 22 mg/dL (9-16); Calcium 9.1 mg/dL (8.4-10.2); Carbon Dioxide 26 mmol/L (22-29); Chloride 97 mmol/L (96-108); Creatinine Clr Calc Pharmacy 33.5; Estimated Glomerular Filt Rate 22; Glucose Random 107 mg/dL (60-115); Lipase 17 U/L (8-78); Potassium 4.2 mmol/L (3.3-5.1); Sodium 132 mmol/L (135-145); Total Protein 7.4 g/dL (6.5-8.0)
[2023-07-13 03:16] LABS: Appearance Urine Clear; Color Urine Yellow; Glucose Urine UA Negative (Negative); Leukocyte Esterase Urine Moderate (2+) (Negative); Nitrite Urine Negative (Negative); PH 5.5 (5.0-9.0); Specific Gravity - Urine <= 1.005 (1.005-1.025); UMIC TRIGGER UACC YES; Urine Blood Negative (Negative); Urine Ketones Negative (Negative); Urine Protein Negative (Neg-Trace)
[2023-07-13 03:18] LABS: Bacteria Urine None Seen (None Seen); Hyaline Casts Urine 0-2 /LPF (0-2); RBC Urine 0-2 /HPF (0-2); Squamous Epithelial Cell Urine 0-2 /HPF (0-2); UACC Culture Trigger YES
[2023-07-13 03:24] VITALS: BP 122/51; PULSE 69; RESP 20; TEMP 36.6; O2SAT 100
--- NOTE | 2023-07-13 03:59 | ED.ABDPAIN ---
HPI - Abdominal Pain General Chief Complaint: Abdominal Pain Stated Complaint: Bloated stomach Time Seen by Provider: 07/13/23 03:59 Source: patient Mode of arrival: ambulatory Limitations: no limitations History of Present Illness HPI narrative: Patient's history of decompensated liver cirrhosis due to MALDONADO, type 2 diabetes mellitus, cervical cancer, GERD, schizophrenia, leg DVT on Coumadin comes here for 2 days of epigastric pain with nausea. Patient is supposed to get colonoscopy on 07/11/23 patient also had some diarrhea today patient feel abdominal bloating complaining of nausea no vomiting no fever no chills feels same as she was in the past when she was admitted for DAVID in 01/17 Related Data Home Medications ?Medication ?Instructions ?Recorded ?Confirmed benztropine 0.5 mg tablet 0.5 mg PO BID PRN pt unsure 01/03/23 03/11/23 bupropion HCl 200 mg tablet,12 hr 200 mg PO BID depressive disorder 01/03/23 07/13/23 sustained-release citalopram 40 mg tablet 40 mg PO QAM depressive disorder 01/03/23 07/13/23 furosemide 40 mg tablet 40 mg PO DAILY 01/03/23 07/13/23 hydroxyzine pamoate 25 mg capsule 25 mg PO TID PRN Anxiety 01/03/23 07/13/23 loratadine 10 mg tablet 10 mg PO DAILY 01/03/23 07/13/23 midodrine 10 mg tablet 10 mg PO TID 01/03/23 03/11/23 ondansetron HCl 4 mg tablet 4 mg PO Q8H PRN Nausea And Vomiting 01/03/23 03/11/23 risperidone microspheres 50 mg/2 50 mg IM Q2W 01/03/23 03/11/23 mL intramuscular susp,ext release (Risperdal Consta) zolpidem 10 mg tablet 10 mg PO BEDTIME PRN Insomnia 01/03/23 03/11/23 acetaminophen 325 mg tablet 975 mg PO Q8H PRN pain 03/11/23 03/11/23 triamcinolone acetonide 0.025 % 1 appl topical BID 03/11/23 03/11/23 topical ointment warfarin 3 mg tablet 3 - 6 mg PO DAILY 03/11/23 03/11/23 warfarin 5 mg tablet 5 - 10 mg PO DAILY 03/11/23 03/11/23 Allergies Allergy/AdvReac Type Severity Reaction Status Date / Time No Known Allergies Allergy Verified 07/12/23 21:05 [No Known Allergies*] Review of Systems Review of Systems Yes all other systems are reviewed and are negative [facility] Past Medical History Medical History Hyponatremia Cirrhosis of liver with ascites Acute kidney insufficiency UTI (urinary tract infection) Cervical cancer Lymphedema Cardiac arrest DVT (deep venous thrombosis) Social History Social History Household Members: Family Housing: Apartment Do you presently have visiting nurse or other home services: Yes Alcohol intake: never Comment: DAUGHTER STAYING OVERNIGHT Patient Tobacco Use Status: Never used Tobacco Smoked in Last 30 Days: No Use of substances other than those prescribed or required for medical reasons: No Advance Directives: Yes Advance Directives on File: Yes Advance Directives Date on File: 01/03/23 Nutrition Risks: No Nutritional Risk Patient : No service: No Physical Exam ED Vital Signs: Vital Signs - 24 hr 07/12/23 20:56 07/13/23 03:24 Temperature 97.5 F 97.9 F Pulse Rate 90 69 Respiratory Rate 16 20 Blood Pressure 122/73 122/51 L Pulse Oximetry 96 100 Oxygen Delivery Method Room Air Room Air BMI result Body Mass Index 46.9 Appearance: Alert. Oriented X3. No acute distress. Eyes: No pallor or icterus ENT: Pharynx normal. Oral Mucosa moist Neck: Normal inspection. Neck supple. CVS: Normal heart rate and rhythm. Pulses normal. Respiratory: No respiratory distress. Equal air entry bilateral, no wheezing/rales/rhonchi Abdomen: Soft and tenderness in epigastric area diffuse distension free fluid positive Bowel sounds are present, no mass palpable, no CVA tenderness Skin: Skin warm and dry. Normal skin color. Normal skin turgor. Extremities: No lower extremity edema. No calf tenderness Neuro: Oriented X 3. No motor deficit. No sensory deficit.No cerebellar signs , cranial nerves II-XII intact Medical Decision Making Medical Decision Making MDM Narrative: Patient with MALDONADO with ascites with DAVID creatinine is increased to 2.31 in April it was 0.94. CT scan of the abdomen showed free fluid . Will admit patient for DAVID with MALDONADO with ascites Differential Diagnosis Differential Diagnoses: The differential diagnosis associated with the presentation includes Gastritis/hepatic failure/gallstones/David/UTI Admission/Observation Consideration of admission/observation: Escalation of care including admission/observation considered Consult Healthcare Provider Management of the patient was discussed with: Hospitalist Lab Data MDM Lab Attestation statement: I reviewed the patient's lab results. 07/12/23 21:55 07/12/23 21:55 Labs: Lab Results 07/12/23 07/13/23 07/13/23 Range/Units 21:55 02:54 04:16 WBC 6.2 (4.8-10.8) X10*3/uL RBC 4.84 (4.20-5.50) X10*6/uL Hgb 13.7 (12.0-16.0) g/dl Hct 42.2 (37.0-47.0) % MCV 87.2 (80.0-98.0) fL MCH 28.3 (27.0-33.0) pg MCHC 32.5 (31.0-35.0) g/dl RDW 14.2 (11.0-16.0) % Plt Count 226 (160-400) X10*3/uL MPV 9.9 (9.4-12.3) fL Immature Gran % (Auto) 0.2 (0.0-0.4) % Neut % (Auto) 80.1 H (45-73) % Lymph % (Auto) 13.1 L (20-40) % [place] % (Auto) 5.7 (2-11) % Eos % (Auto) 0.6 (0-4) % Baso % (Auto) 0.3 (0-2) % Lymph # (Auto) 0.8 L (1.2-4.9) X10*3/uL [place] # (Auto) 0.4 (0.1-1.2) X10*3/uL Eos # (Auto) 0.0 (0.0-0.4) X10*3/uL Baso # (Auto) 0.0 (0.0-0.2) X10*3/uL Abs Immat Gran (auto) 0.01 (0.00-0.03) X10*3/uL Absolute Neuts (auto) 5.0 (2.0-8.3) x10*3/uL Absolute Nucleated RBC 0.000 (0.0-0.012) X10*3/uL Nucleated RBC % (auto) 0.0 (0.0-0.2) /100WBC PT 13.3 D (11.1-13.3) SEC INR 1.1 (0.9-1.1) Sodium 132 L (135-145) mmol/L Potassium 4.2 D (3.3-5.1) mmol/L Chloride 97 (96-108) mmol/L Carbon Dioxide 26 (22-29) mmol/L Anion Gap 13 (12-20) BUN 22 H (9-16) mg/dL Creatinine 2.31 H (0.5-1.4) mg/dL Estim Creat Clear Calc 33.5 Estimated GFR 22 Random Glucose 107 (60-115) mg/dL Calcium 9.1 (8.4-10.2) mg/dL Total Bilirubin 0.4 (0.0-1.0) mg/dL Direct Bilirubin 0.2 (0.0-0.5) mg/dL AST 16 (5-31) U/L ALT 12 (0-31) U/L Alkaline Phosphatase 93 (39-117) U/L Total Protein 7.4 (6.5-8.0) g/dL Albumin 4.4 (3.5-5.0) g/dL Lipase 17 (8-78) U/L Urine Color Yellow Urine Appearance Clear Urine pH 5.5 (5.0-9.0) Ur Specific [place] <= 1.005 (1.005-1.025) Urine Protein Negative (Neg-Trace) mg/dL Urine Glucose (UA) Negative (Negative) mg/dL Urine Ketones Negative (Negative) mg/dL Urine Blood Negative (Negative) Urine Nitrite Negative (Negative) Ur Leukocyte Esterase Moderate (2+) H (Negative) Urine RBC 0-2 (0-2) /HPF Urine WBC 11-20 H (0-5) /HPF Ur Squamous Epith Cells 0-2 (0-2) /HPF Urine Bacteria None Seen (None Seen) Hyaline Casts 0-2 (0-2) /LPF Independent Interpretation I performed an independent interpretation of an: CT Scan Radiology Impression Discussion of test interpretation with radiology: I have reviewed the radiologist's reading. Radiologist Impression: CT/CT abdomen pelvis wo IV con IMPRESSION: 1. Moderate volume ascites, new from 01/27/2023. 2. Redemonstrated fluid collection in the left retroperitoneum, similar to prior. 3. Trace right pleural effusion. Medications Administered Discontinued Medications Generic Name Dose Route Start Last Admin Trade Name Freq PRN Reason Stop Dose Admin Famotidine 20 mg 07/13/23 04:08 07/13/23 04:18 Famotidine/Pf 20 Mg/2 Ml Vial IVPUSH 07/13/23 04:09 20 mg ONCE ONE Administration Sodium Chloride 1,000 mls @ 999 mls/hr 07/13/23 04:01 07/13/23 05:23 Ns IV 07/13/23 05:01 Infused .Q1H1M ONE Infusion Ondansetron HCl 4 mg 07/13/23 04:01 07/13/23 04:18 Ondansetron Hcl 4 Mg/2 Ml Vial IVPUSH 07/13/23 04:02 4 mg ONCE ONE Administration Discharge Plan Discharge Clinical Impression: Liver cirrhosis secondary to MALDONADO, DAVID (acute kidney injury) Patient Disposition: Admitted As Inpatient
[2023-07-13] MEDS: 0.9 % Sodium Chloride 1,000 ML 999 ML IV (04:18)
[2023-07-13] MEDS: Famotidine/PF 20 MG/2 ML VIAL IVPUSH (04:18)
[2023-07-13] MEDS: ondansetron HCL 4 MG/2 ML VIAL IVPUSH (04:18)
[2023-07-13 04:29] LABS: INTERNATIONAL NORM RATIO 1.1 (0.9-1.1); Prothrombin Time 13.3 SEC (11.1-13.3)
--- NOTE | 2023-07-13 06:16 | P.HPHOSP_ITS ---
History of Present Illness Date of Service: 07/13/23 Attending physician on admission: Edwige Lundberg Chief Complaint: Abdominal pain Emilee Celis is a 52 years old woman with past medical history significant for liver cirrhosis (likely due to MALDONADO), DAVID secondary to obstructive uropathy, type 2 diabetes mellitus -diet controlled, schizophrenia, GERD and cervical cancer s/p pelvic radiation and lower extremity DVT on warfarin presents to the emergency department complaining of generalized abdominal pain (more prominent in the epigastrium) since yesterday associated with worsening abdominal girth and nausea. She also complained of having diarrhea because she has been taking a bowel prep for a colonoscopy that was scheduled for yesterday. Due to pain she decided not to have the colonoscopy and come to the emergency department for further evaluation. She also complained of subjective fever and chills. Denied events of vomiting. Denies headache, palpitations, shortness on breath, chest pain, cough dizziness or weakness. She did not report any acute urinary symptoms. No confusion noted (according to patient's daughter who was at bedside). She does take furosemide daily and has not been taking the warfarin as she was advised to stop taking it before the colonoscopy. Patient denied alcohol abuse, illicit drug use or tobacco smoking. In the ED, she was found to have normal vital signs. Blood workup showed no leukocytosis or thrombocytopenia. Hemoglobin is normal. There is hyponatremia 132 and no other electrolyte imbalances. Creatinine and BUN are elevated, 2.31 and 22 respectively. Her creatinine in April of this year was normal. LFTs, albumin, total protein and lipase are normal. Abdomen pelvis CT scan showed moderate volume ascites, fluid collection in the left retroperitoneum (similar to prior) and trace right pleural effusion. Echocardiogram done December 2022 showed normal LVF function without significant valve disease. ED tx: NS 1 L bolus, Zofran 4 mg IV and famotidine 20 mg IV. Review of Systems 2 Review of Systems: All 12 systems were reviewed and normal except as noted in HPI. [facility] Medical History (Updated 07/13/23 @ 07:28 by Edwige Lundberg MD) Hyponatremia Cirrhosis of liver with ascites Acute kidney insufficiency UTI (urinary tract infection) Cervical cancer Lymphedema Cardiac arrest DVT (deep venous thrombosis) Social History Household Members: Family Housing: Apartment Do you presently have visiting nurse or other home services: Yes Alcohol intake: never Comment: DAUGHTER STAYING OVERNIGHT Patient Tobacco Use Status: Never used Tobacco Smoked in Last 30 Days: No Use of substances other than those prescribed or required for medical reasons: No Advance Directives: Yes Advance Directives on File: Yes Advance Directives Date on File: 01/03/23 Nutrition Risks: No Nutritional Risk Patient : No service: No Meds Allergies Allergy/AdvReac Type Severity Reaction Status Date / Time No Known Allergies Allergy Verified 07/12/23 21:05 [No Known Allergies*] Active Medications: Current Medications Lactated Ringer's (Lr) 1,000 mls @ 80 mls/hr IVCONT .[id number] LAUREN Oxycodone HCl (Oxycodone Hcl Immed Release 5 Mg Tablet) 5 mg PO Q6H PRN PRN Reason: Pain, Severe (Pain Scale 7-10) Sodium Chloride (0.9 % Sodium Chloride Flush 3 Ml Syringe) 3 ml IVFLUSH QSHIFT LAUREN Home Medications ?Medication ?Instructions ?Recorded ?Confirmed ?Last Taken ?Type benztropine 0.5 mg tablet 0.5 mg PO BID PRN pt unsure 01/03/23 03/11/23 Unknown History bupropion HCl 200 mg tablet,12 hr 200 mg PO BID depressive disorder 01/03/23 07/13/23 Unknown History sustained-release citalopram 40 mg tablet 40 mg PO QAM depressive disorder 01/03/23 07/13/23 Unknown History furosemide 40 mg tablet 40 mg PO DAILY 01/03/23 07/13/23 Unknown History hydroxyzine pamoate 25 mg capsule 25 mg PO TID PRN Anxiety 01/03/23 07/13/23 Unknown History loratadine 10 mg tablet 10 mg PO DAILY 01/03/23 07/13/23 Unknown History midodrine 10 mg tablet 10 mg PO TID 01/03/23 03/11/23 Unknown History ondansetron HCl 4 mg tablet 4 mg PO Q8H PRN Nausea And Vomiting 01/03/23 03/11/23 Unknown History risperidone microspheres 50 mg/2 50 mg IM Q2W 01/03/23 03/11/23 12/24/22 History mL intramuscular susp,ext release (Risperdal Consta) zolpidem 10 mg tablet 10 mg PO BEDTIME PRN Insomnia 01/03/23 03/11/23 Unknown History acetaminophen 325 mg tablet 975 mg PO Q8H PRN pain 03/11/23 03/11/23 Unknown History triamcinolone acetonide 0.025 % 1 appl topical BID 03/11/23 03/11/23 Unknown History topical ointment warfarin 3 mg tablet 3 - 6 mg PO DAILY 03/11/23 03/11/23 Unknown History warfarin 5 mg tablet 5 - 10 mg PO DAILY 03/11/23 03/11/23 Unknown History benztropine 0.5 mg tablet 0.5 mg PO BID PRN dystonias 07/13/23 07/13/23 Unknown History midodrine 10 mg tablet 10 mg PO TID 07/13/23 07/13/23 Unknown History Physical Exam 2 Vital Signs and Narrative: Vital Signs: Last Vital Signs Temp 97.9 F 07/13/23 03:24 Pulse 69 07/13/23 03:24 Resp 20 07/13/23 03:24 BP 122/51 L 07/13/23 03:24 Pulse Ox 100 07/13/23 03:24 O2 Del Method Room Air 07/13/23 03:24 BMI result Body Mass Index 46.9 Constitutional - Awake and Alert, No apparent distress. Cooperative. Pleasant. HEENT - Pupils equally round. Normal sclerae. Dry oral mucosa. Heart - S1S2, RRR. No murmur. Lungs - Normal lung expansion, Normal respiratory effort, No respiratory distress. Decreased breath sounds at bases. Abdomen - Markely distended. Distant bowel sounds. Positive fluid wave. Generalized tenderness with guarding. No rebound. Extremities - Nonpitting edema/lymphedema. No erythema. Musculoskeletal - Normal inspection, normal ROM Skin - Warm/Dry. No pallor. No jaundice. Neurological - Alert & oriented x3. No facial droop. No focal weakness. Normal speech. No asterixis. Psychological - Appropriate affect Results Labs 07/12/23 21:55 07/12/23 21:55 Labs: Laboratory Results - last 24 hr 07/12/23 07/13/23 07/13/23 21:55 02:54 04:16 MCV 87.2 MCH 28.3 MCHC 32.5 RDW 14.2 Plt Count 226 MPV 9.9 Immature Gran % (Auto) 0.2 Neut % (Auto) 80.1 H Lymph % (Auto) 13.1 L Traill % (Auto) 5.7 Eos % (Auto) 0.6 Baso % (Auto) 0.3 Lymph # (Auto) 0.8 L Traill # (Auto) 0.4 Eos # (Auto) 0.0 Baso # (Auto) 0.0 Abs Immat Gran (auto) 0.01 Absolute Neuts (auto) 5.0 Absolute Nucleated RBC 0.000 Nucleated RBC % (auto) 0.0 PT 13.3 D INR 1.1 Anion Gap 13 Estim Creat Clear Calc 33.5 Estimated GFR 22 Random Glucose 107 Calcium 9.1 Total Bilirubin 0.4 Direct Bilirubin 0.2 AST 16 ALT 12 Alkaline Phosphatase 93 Total Protein 7.4 Albumin 4.4 Lipase 17 Urine Color Yellow Urine Appearance Clear Urine pH 5.5 Ur Specific Mingus <= 1.005 Urine Protein Negative Urine Glucose (UA) Negative Urine Ketones Negative Urine Blood Negative Urine Nitrite Negative Ur Leukocyte Esterase Moderate (2+) H Urine RBC 0-2 Urine WBC 11-20 H Ur Squamous Epith Cells 0-2 Urine Bacteria None Seen Hyaline Casts 0-2 Imaging Radiologist's Impressions: Impressions Abdomen/Pelvis CT 07/13/23 04:35 IMPRESSION: 1. Moderate volume ascites, new from 01/27/2023. 2. Redemonstrated fluid collection in the left retroperitoneum, similar to prior. 3. Trace right pleural effusion. Assessment and Plan (1) DAVID (acute kidney injury): Status: Acute (2) Hyponatremia: Status: Acute (3) Lymphedema: Status: Inactive Plan Emilee Celis is a 52 years old woman admitted with: * Worsening ascites associated with abdominal pain; rule out SBP. Admit to hospitalist service. IR consult for diagnostic paracentesis/rule out SBP. Furosemide on hold due to DAVID. Start treatment with Protonix 40 mg IV BID (pain is more prominent in the epigastric area) to treat associated acute gastritis. Will consider IV antibiotic therapy if peritoneal fluid analysis suggests infection. Pain control with oxycodone. * Acute kidney injury likely multifactorial: Diarrhea, diuretic use (takes furosemide but unsure if she takes spironolactone) and ascites. Hx of DAVID secondary to obstructive uropathy. Doubt hepatorenal syndrome. Gentle IV fluids. Hold furosemide. Insert urinary Mcallister catheter. Antidiarrhea medication as needed. Continue to monitor renal function. Avoid nephrotoxic agents. * Hyponatremia, mild. Likely secondary to 3rd spacing and/or diarrhea + use of furosemide. Continue to monitor * Trace right pleural effusion likely secondary to 3rd space. No respiratory symptoms reported. Normal oxygen saturation on room air. * Hx of DVT. INR is subtherapeutic/normal as the patient has not been taking her warfarin (she was advised to stop taking it 5 days prior to colonoscopy). Restart warfarin after paracentesis. * Hx of cervical cancer s/p pelvic radiation. Outpatient follow-up. * GERD. Continue PPI. * Schizophrenia, anxiety and depression. Continue home psych meds. DVT prophylaxis: SCDs (restart warfarin after paracentesis) Code status: Full Patient will need hospitalization for at least 2 midnights for worsening ascites, abdominal pain and DAVID therapy and evaluation. Patient will need IV fluids, IR consult for paracentesis and close monitoring of blood workup. Quality Stroke Does the patient have a stroke diagnosis?: No VTE Prior VTE?: No VTE Risk Level:: Medical - moderate - high VTE Device Contraindication: N/A - Device Ordered VTE Drug Contraindication: N/A - Med Ordered
[2023-07-13 08:21] VITALS: BP 116/51; PULSE 75; RESP 16; TEMP 36.8; O2SAT 99
--- NOTE | 2023-07-13 08:46 | PHA.MEDREC ---
Pharmacy Consult ? Medication Reconciliation Pharmacy has completed the medication reconciliation. Spoke to patient with an driver service technician to confirm medication list. Patient said she is no longer taking midodrine since her blood pressure is normal now, she thinks she is due for a dose of Risperdal Consta this tuesday. A nurse comes every tuesday and tuesday to give her injections and check her INR to give her warfarin dose accordingly. Since last tuesday until yesterday (tuesday 07/11), patient has been taking warfarin 10 mg daily.
[2023-07-13] MEDS: Pantoprazole Sodium 40 MG/10 ML VIAL IVPUSH ×2 (09:16→19:11)
[2023-07-13] MEDS: 0.9 % Sodium Chloride Flush 3 ML SYRINGE IVFLUSH ×2 (09:17→23:21)
[2023-07-13] MEDS: Albumin Human 25 % 100 ML IV ×5 (09:18→23:19)
[2023-07-13] MEDS: buPROPion HCl XL 300 MG TAB.ER.24H PO (09:34)
[2023-07-13] MEDS: Lactated Ringers 1,000 ML 80 ML IVCONT (09:34)
[2023-07-13] MEDS: buPROPion HCl XL 150 MG TAB.ER.24H PO (09:35)
[2023-07-13] MEDS: Loratadine 10 MG TABLET PO (09:35)
[2023-07-13] MEDS: Escitalopram Oxalate 20 MG TABLET PO (09:35)
--- NOTE | 2023-07-13 09:37 | PC.NURSE ---
This RN resumed care at 0700, pt is currently complaining of pain and nausea, PRN medications given. IV in place is being extremely positional, pt to get U/S guided IV placed. IVF/Albumin on hold until new IV. All other needs met at this time
[2023-07-13] MEDS: oxyCODONE HCl Immed Release 5 MG TABLET PO ×3 (09:38→23:18)
[2023-07-13 10:35] LABS: Anion Gap 15 (12-20); Blood Urea Nitrogen 23 mg/dL (9-16); Calcium 8.8 mg/dL (8.4-10.2); Carbon Dioxide 24 mmol/L (22-29); Chloride 101 mmol/L (96-108); Creatinine Clr Calc Pharmacy 29.8; Estimated Glomerular Filt Rate 19; Glucose Random 96 mg/dL (60-115); Potassium 4.5 mmol/L (3.3-5.1); Sodium 135 mmol/L (135-145)
[2023-07-13 12:08] LABS: WBC Peritoneal Fluid 0.411 X10*3/uL
[2023-07-13 12:10] LABS: RBC Peritoneal Fluid < 0.002 X10*6/uL
[2023-07-13 12:53] LABS: BF Shift QC OK YES; Lymphocyte Peritoneal Fl 2 %; Man Diluent Bkgrd OK YES; Monocytes Peritoneal Fl 10 %; Neutrophils Peritoneal Fluid 14 %; Other Peritioneal Fl 74 %
--- NOTE | 2023-07-13 13:30 | PM.GICN ---
History of Present Illness Data of Consult Service Date: 07/13/23 Primary Care Provider: Kristin Todd MD [facility] Reason for consult: abdominal pain 52 year old woman with hx of liver cirrhosis (? due to MALDONADO), DAVID secondary to obstructive uropathy, type 2 diabetes mellitus -diet controlled, schizophrenia, GERD and cervical cancer s/p pelvic radiation and lower extremity DVT on warfarin who I am seeing for assessment for abdominal pain Patient came to ED with epigastric pain with radiaiton across whole abdomen for 1 d associated with abdominal distention, and nausea. she had been taking bowel pre for a colonoscopy day before but due to the pain she cancelled the colonoscopy. she has noted fevers and chills, denies emesis, meelna, rectal bleeding. She denies urine symptoms, or taking nsaids. presents to the emergency department complaining of generalized abdominal pain (more prominent in the epigastrium) since yesterday associated with worsening abdominal girth and nausea. She also complained of having diarrhea because she has been taking a bowel prep for a colonoscopy that was scheduled for yesterday. Due to pain she decided not to have the colonoscopy and come to the emergency department for further evaluation. She also complained of subjective fever and chills. Denied events of vomiting. Denies headache, palpitations, shortness on breath, chest pain, cough dizziness or weakness. She did not report any acute urinary symptoms. No confusion noted (according to patient's daughter who was at bedside). She does take furosemide daily and has not been taking the warfarin as she was advised to stop taking it before the colonoscopy. Patient denied alcohol abuse, illicit drug use or tobacco smoking. In the ED, she was found to have normal vital signs. Blood workup showed no leukocytosis or thrombocytopenia. Hemoglobin is normal. There is hyponatremia 132 and no other electrolyte imbalances. Creatinine and BUN are elevated, 2.31 and 22 respectively. Her creatinine in April of this year was normal. LFTs, albumin, total protein and lipase are normal. Abdomen pelvis CT scan showed moderate volume ascites, fluid collection in the left retroperitoneum (similar to prior) and trace right pleural effusion. Echocardiogram done December 2022 showed normal LVF function without significant valve disease. ED tx: NS 1 L bolus, Zofran 4 mg IV and famotidine 20 mg IV. [facility] Past Medical History Medical History (Updated 07/13/23 @ 07:28 by Edwige Lundberg MD) Hyponatremia Cirrhosis of liver with ascites Acute kidney insufficiency UTI (urinary tract infection) Cervical cancer Lymphedema Cardiac arrest DVT (deep venous thrombosis) Social History Social History Household Members: Family Housing: Apartment Do you presently have visiting nurse or other home services: Yes Alcohol intake: never Comment: DAUGHTER STAYING OVERNIGHT Patient Tobacco Use Status: Never used Tobacco Smoked in Last 30 Days: No Use of substances other than those prescribed or required for medical reasons: No Advance Directives: Yes Advance Directives on File: Yes Advance Directives Date on File: 01/03/23 Nutrition Risks: No Nutritional Risk Patient : No service: No Meds Allergies Allergy/AdvReac Type Severity Reaction Status Date / Time No Known Allergies Allergy Verified 07/12/23 21:05 [No Known Allergies*] Active Medications: Current Medications Benztropine Mesylate (Benztropine Mesylate 0.5 Mg Tablet) 0.5 mg PO BID PRN PRN Reason: dystonias Bupropion HCl (Bupropion Hcl Xl 300 Mg Tab.Er.24h) 300 mg PO DAILY [facility] Last Admin: 07/13/23 09:34 Dose: 300 mg Bupropion HCl (Bupropion Hcl Xl 150 Mg Tab.Er.24h) 150 mg PO DAILY [facility] Last Admin: 07/13/23 09:35 Dose: 150 mg Escitalopram Oxalate (Escitalopram Oxalate 20 Mg Tablet) 20 mg PO DAILY@0900 [facility] Last Admin: 07/13/23 09:35 Dose: 20 mg Hydroxyzine HCl (Hydroxyzine Hcl 25 Mg Tablet) 25 mg PO TID PRN PRN Reason: Anxiety Lactated Ringer's (Lr) 1,000 mls @ 80 mls/hr IVCONT .[id number] [facility] Last Admin: 07/13/23 09:34 Dose: 80 mls/hr Albumin Human (Kedbumin 25 %) 100 mls @ 100 mls/hr IV Q6H [facility] Stop: 07/14/23 06:59 Loratadine (Loratadine 10 Mg Tablet) 10 mg PO DAILY [facility] Last Admin: 07/13/23 09:35 Dose: 10 mg Nystatin (Nystatin Powder 15 Gm Bottle) 1 appl TOPICAL BID [facility]; Protocol Ondansetron HCl (Ondansetron Odt 4 Mg Tab.Rapdis) 4 mg TRANSLINGU BID [facility] Oxycodone HCl (Oxycodone Hcl Immed Release 5 Mg Tablet) 5 mg PO Q6H PRN PRN Reason: Pain, Severe (Pain Scale 7-10) Last Admin: 07/13/23 09:38 Dose: 5 mg Pantoprazole Sodium (Pantoprazole Sodium 40 Mg/10 Ml Vial) 40 mg IVPUSH BID@0630,1630 [facility] Last Admin: 07/13/23 09:16 Dose: 40 mg Risperidone (Risperidone Microspheres 50 Mg/2 Ml Syringe) 50 mg IM Q14D [facility] Sodium Chloride (0.9 % Sodium Chloride Flush 3 Ml Syringe) 3 ml IVFLUSH QSHIFT [facility] Last Admin: 07/13/23 09:17 Dose: 3 ml Triamcinolone Acetonide (Triamcinolone Acet 0.025 % Cream 15 Gm Tube) 1 appl TOPICAL BID PRN PRN Reason: Rash Home Medications ?Medication ?Instructions ?Recorded ?Confirmed ?Last Taken ?Type bupropion HCl 200 mg tablet,12 hr 200 mg PO BID depressive disorder 01/03/23 07/13/23 07/12/23 History sustained-release citalopram 40 mg tablet 40 mg PO QAM depressive disorder 01/03/23 07/13/23 07/12/23 History furosemide 40 mg tablet 40 mg PO DAILY 01/03/23 07/13/23 07/12/23 History hydroxyzine pamoate 25 mg capsule 25 mg PO TID PRN Anxiety 01/03/23 07/13/23 Unknown History loratadine 10 mg tablet 10 mg PO DAILY 01/03/23 07/13/23 07/12/23 History ondansetron HCl 4 mg tablet 4 mg PO BID Nausea And Vomiting 01/03/23 07/13/23 07/12/23 History risperidone microspheres 50 mg/2 50 mg IM Q2W 01/03/23 07/13/23 07/01/23 History mL intramuscular susp,ext release (Risperdal Consta) zolpidem 10 mg tablet 10 mg PO BEDTIME PRN Insomnia 01/03/23 07/13/23 07/12/23 History triamcinolone acetonide 0.025 % 1 appl topical BID PRN Rash 03/11/23 07/13/23 Unknown History topical ointment warfarin 5 mg tablet 10 mg PO DAILY 03/11/23 07/13/23 07/12/23 History benztropine 0.5 mg tablet 0.5 mg PO BID PRN dystonias 07/13/23 07/13/23 Unknown History nystatin 100,000 unit/gram topical 1 appl topical BID 07/13/23 07/13/23 07/12/23 History powder warfarin 4 mg tablet 4 - 8 mg PO DAILY 07/13/23 Unknown History warfarin 6 mg tablet 6 mg PO DAILY 07/13/23 Unknown History Physical Exam Vital Signs: Vital Signs: Last Vital Signs Temp 98.3 F 07/13/23 08:21 Pulse 75 07/13/23 08:21 Resp 16 07/13/23 08:21 BP 116/51 L 07/13/23 08:21 Pulse Ox 99 07/13/23 08:21 O2 Del Method Room Air 07/13/23 08:21 BMI result Body Mass Index 46.9 Results Labs 07/12/23 21:55 07/13/23 09:58 Labs: Short CBC 07/12/23 Range/Units 21:55 WBC 6.2 (4.8-10.8) X10*3/uL Hgb 13.7 (12.0-16.0) g/dl Hct 42.2 (37.0-47.0) % Plt Count 226 (160-400) X10*3/uL BMP 07/12/23 07/13/23 21:55 09:58 Sodium 132 L 135 Potassium 4.2 D 4.5 Chloride 97 101 Carbon Dioxide 26 24 BUN 22 H 23 H Creatinine 2.31 H 2.59 H Calcium 9.1 8.8 Liver Function 07/12/23 Range/Units 21:55 Total Bilirubin 0.4 (0.0-1.0) mg/dL Direct Bilirubin 0.2 (0.0-0.5) mg/dL AST 16 (5-31) U/L ALT 12 (0-31) U/L Alkaline Phosphatase 93 (39-117) U/L Albumin 4.4 (3.5-5.0) g/dL Urine 07/13/23 Range/Units 02:54 Urine Color Yellow Urine Appearance Clear Urine pH 5.5 (5.0-9.0) Ur Specific Chapman <= 1.005 (1.005-1.025) Urine Protein Negative (Neg-Trace) mg/dL Urine Glucose (UA) Negative (Negative) mg/dL Procedures Date of Service Date of Service: 07/13/23
[2023-07-13] MEDS: Lidocaine HCl 1 % MPF 5 ML VIAL SUBCUT (14:13)
[2023-07-13 15:09] VITALS: BP 115/67; PULSE 92; RESP 18; TEMP 36.8; O2SAT 98
--- NOTE | 2023-07-13 15:55 | P.CNGI_ITS ---
History of Present Illness Data of Consult Service Date: 07/13/23 Requesting physician: Celestine Henderson Primary Care Provider: Kristin Todd MD HPI Reason for consult: DAVID, cirrhosis This is a 52-year-old female with past medical history of metabolic fatty liver disease/MALDONADO that has led to decompensated cirrhosis with ascites, followed by [facility] hepatology, who presented to the hospital for increasing abdominal pain, swelling and decreased urination. History obtained from the patient with the help of a quantitative strategy analyst, who states that on Tuesday evening, she started her prep in preparation for an upcoming colonoscopy. However, after taking the 1st have developed diffuse diarrhea, with worsening abdominal pain and distention. No nausea, vomiting, fevers, chills. She also noticed decreased urination, which was reminiscent of her hospital admission last year and she therefore presented to the hospital for further evaluation. Has remained widely stable. Labs significant for creatinine up to 2.3, from baseline of 0.8, which worsened this morning to 2.59. CT abdomen and pelvis without IV contrast showed reaccumulation of ascites. She also has chronic left retroperitoneal fluid collection with calcification which is unchanged. By the time of my evaluation, patient has already had paracentesis. Currently reports feeling much improved in terms of bloating sensation. Review of Systems 2 Review of Systems: Yes all other systems are reviewed and are negative PMFSH Past Medical History Medical History (Updated 07/13/23 @ 07:28 by Edwige Lundberg MD) Hyponatremia Cirrhosis of liver with ascites Acute kidney insufficiency UTI (urinary tract infection) Cervical cancer Lymphedema Cardiac arrest DVT (deep venous thrombosis) Social History Social History Household Members: Family Housing: Apartment Do you presently have visiting nurse or other home services: Yes Alcohol intake: never Comment: DAUGHTER STAYING OVERNIGHT Patient Tobacco Use Status: Never used Tobacco Smoked in Last 30 Days: No Use of substances other than those prescribed or required for medical reasons: No Advance Directives: Yes Advance Directives on File: Yes Advance Directives Date on File: 01/03/23 Nutrition Risks: No Nutritional Risk Patient : No service: No Meds Allergies Allergy/AdvReac Type Severity Reaction Status Date / Time No Known Allergies Allergy Verified 07/12/23 21:05 [No Known Allergies*] Active Medications: Current Medications Benztropine Mesylate (Benztropine Mesylate 0.5 Mg Tablet) 0.5 mg PO BID PRN PRN Reason: dystonias Bupropion HCl (Bupropion Hcl Xl 300 Mg Tab.Er.24h) 300 mg PO DAILY [facility] Last Admin: 07/13/23 09:34 Dose: 300 mg Bupropion HCl (Bupropion Hcl Xl 150 Mg Tab.Er.24h) 150 mg PO DAILY [facility] Last Admin: 07/13/23 09:35 Dose: 150 mg Escitalopram Oxalate (Escitalopram Oxalate 20 Mg Tablet) 20 mg PO DAILY@0900 [facility] Last Admin: 07/13/23 09:35 Dose: 20 mg Hydroxyzine HCl (Hydroxyzine Hcl 25 Mg Tablet) 25 mg PO TID PRN PRN Reason: Anxiety Lactated Ringer's (Lr) 1,000 mls @ 80 mls/hr IVCONT .[id number] [facility] Last Admin: 07/13/23 09:34 Dose: 80 mls/hr Albumin Human (Kedbumin 25 %) 100 mls @ 100 mls/hr IV Q6H [facility] Stop: 07/14/23 06:59 Last Admin: 07/13/23 15:37 Dose: 100 mls/hr Loratadine (Loratadine 10 Mg Tablet) 10 mg PO DAILY [facility] Last Admin: 07/13/23 09:35 Dose: 10 mg Nystatin (Nystatin Powder 15 Gm Bottle) 1 appl TOPICAL BID [facility]; Protocol Ondansetron HCl (Ondansetron Odt 4 Mg Tab.Rapdis) 4 mg TRANSLINGU BID [facility] Oxycodone HCl (Oxycodone Hcl Immed Release 5 Mg Tablet) 5 mg PO Q6H PRN PRN Reason: Pain, Severe (Pain Scale 7-10) Last Admin: 07/13/23 15:03 Dose: 5 mg Pantoprazole Sodium (Pantoprazole Sodium 40 Mg/10 Ml Vial) 40 mg IVPUSH BID@0630,1630 [facility] Last Admin: 07/13/23 09:16 Dose: 40 mg Risperidone (Risperidone Microspheres 50 Mg/2 Ml Syringe) 50 mg IM Q14D [facility] Sodium Chloride (0.9 % Sodium Chloride Flush 3 Ml Syringe) 3 ml IVFLUSH QSHIFT [facility] Last Admin: 07/13/23 15:50 Dose: Not Given Triamcinolone Acetonide (Triamcinolone Acet 0.025 % Cream 15 Gm Tube) 1 appl TOPICAL BID PRN PRN Reason: Rash Home Medications ?Medication ?Instructions ?Recorded ?Confirmed ?Last Taken ?Type bupropion HCl 200 mg tablet,12 hr 200 mg PO BID depressive disorder 01/03/23 07/13/23 07/12/23 History sustained-release citalopram 40 mg tablet 40 mg PO QAM depressive disorder 01/03/23 07/13/23 07/12/23 History furosemide 40 mg tablet 40 mg PO DAILY 01/03/23 07/13/23 07/12/23 History hydroxyzine pamoate 25 mg capsule 25 mg PO TID PRN Anxiety 01/03/23 07/13/23 Unknown History loratadine 10 mg tablet 10 mg PO DAILY 01/03/23 07/13/23 07/12/23 History ondansetron HCl 4 mg tablet 4 mg PO BID Nausea And Vomiting 01/03/23 07/13/23 07/12/23 History risperidone microspheres 50 mg/2 50 mg IM Q2W 01/03/23 07/13/23 07/01/23 History mL intramuscular susp,ext release (Risperdal Consta) zolpidem 10 mg tablet 10 mg PO BEDTIME PRN Insomnia 01/03/23 07/13/23 07/12/23 History triamcinolone acetonide 0.025 % 1 appl topical BID PRN Rash 03/11/23 07/13/23 Unknown History topical ointment warfarin 5 mg tablet 10 mg PO DAILY 03/11/23 07/13/23 07/12/23 History benztropine 0.5 mg tablet 0.5 mg PO BID PRN dystonias 07/13/23 07/13/23 Unknown History nystatin 100,000 unit/gram topical 1 appl topical BID 07/13/23 07/13/23 07/12/23 History powder warfarin 4 mg tablet 4 - 8 mg PO DAILY 07/13/23 Unknown History warfarin 6 mg tablet 6 mg PO DAILY 07/13/23 Unknown History Physical Exam 2 Vital Signs: Vital Signs: Last Vital Signs Temp 98.2 F 07/13/23 15:09 Pulse 92 07/13/23 15:09 Resp 18 07/13/23 15:09 BP 115/67 07/13/23 15:09 Pulse Ox 98 04/17/24 15:09 O2 Del Method Room Air 07/13/23 15:09 BMI result Body Mass Index 46.9 Middle-aged female With obesity Nonicteric Abdomen soft, nontender, distended Chest clear to auscultation No peripheral edema No asterixis Results Labs 07/12/23 21:55 07/13/23 09:58 Labs: Short CBC 07/12/23 Range/Units 21:55 WBC 6.2 (4.8-10.8) X10*3/uL Hgb 13.7 (12.0-16.0) g/dl Hct 42.2 (37.0-47.0) % Plt Count 226 (160-400) X10*3/uL BMP 07/12/23 07/13/23 21:55 09:58 Sodium 132 L 135 Potassium 4.2 D 4.5 Chloride 97 101 Carbon Dioxide 26 24 BUN 22 H 23 H Creatinine 2.31 H 2.59 H Calcium 9.1 8.8 Liver Function 07/12/23 Range/Units 21:55 Total Bilirubin 0.4 (0.0-1.0) mg/dL Direct Bilirubin 0.2 (0.0-0.5) mg/dL AST 16 (5-31) U/L ALT 12 (0-31) U/L Alkaline Phosphatase 93 (39-117) U/L Albumin 4.4 (3.5-5.0) g/dL Urine 07/13/23 Range/Units 02:54 Urine Color Yellow Urine Appearance Clear Urine pH 5.5 (5.0-9.0) Ur Specific [place] <= 1.005 (1.005-1.025) Urine Protein Negative (Neg-Trace) mg/dL Urine Glucose (UA) Negative (Negative) mg/dL Microbiology Microbiology Results: Microbiology 07/13/23 11:06 Peritoneal Fluid Gram Stain - Final Assessment and Plan (1) Abdominal pain: Status: Acute (2) DAVID (acute kidney injury): Status: Acute (3) Liver cirrhosis secondary to MALDONADO: Status: Acute (4) Morbid obesity: Status: Acute (5) Hepatorenal syndrome: Status: Acute Plan Decompensated MALDONADO cirrhosis MELD-Na 20 (driven primarily by Cr) - ascites Clinical presentation consistent with prerenal DAVID due to dehydration from diarrhea from prep versus DAVID/HRS. Patient previously also has history of bladder outlet obstruction. Plan: -follow-up paracentesis studies -IV albumin 25% 100 mL q.i.d. x 48h -consider LR 1 L bolus today, as appears to be on dry side on exam -check urine sodium urine potassium urine creatinine -low threshold to add midodrine octreotide if renal function does not improve within 48 hours of fluid challenge -avoid nephrotoxins avoid diuretic -overall clinical course and prognosis will be driven by renal function -nephrology consultation -will also send a heads up to [facility] hepatology re pt's admission Thank you for allowing me to participate in her care. Please do not hesitate to reach out for any questions or concerns. Procedures Date of Service Date of Service: 07/13/23
--- NOTE | 2023-07-13 16:35 | PM.EVENT ---
Event Note Date of Service: 07/14/23 Event Note: This patient is seen and examined -patient has ascites, DAVID -she recently received colon prep afterwards she was getting possibly got dehydrated Physical exam: similar to beforeas in h&P. assessment and plan coordinated Agree with the plan in addition: Worsening ascites associated with abdominal pain; rule out SBP. less likley sbp david -cr similar ,continue ivf ?gastritis-continue ppi Time Spent With Patient Time: Total time managing care of this patient today ____ minutes.
[2023-07-13] MEDS: Lactated Ringers 1,000 ML 100 ML IVCONT (16:40)
--- NOTE | 2023-07-13 19:24 | PC.NURSE ---
This RN assumed pt care @ 1900. Pt ca&ox4, no signs of distress. Family at bedside. Plan of care ongoing.
--- NOTE | 2023-07-13 19:52 | P.CONNP_ITS ---
History of Present Illness Reason for Consult Consult date: 07/13/23 Reason for consult: Patient requesting transfer of care to [facility] for DAVID Chief Complaint Chief complaint: Abdominal pain, r/o SBO, DAVID History of Present Illness Narrative: Emilee Celis is a 52 years old woman with liver cirrhosis (likely due to MALDONADO), H/O DAVID secondary to obstructive uropathy, type 2 diabetes mellitus - diet controlled, cervical cancer s/p pelvic radiation and lower extremity DVT on warfarin presented to the emergency department complaining of generalized abdominal pain (more prominent in the epigastrium)associated with worsening abdominal girth and nausea. She also complained of having diarrhea because she has been taking a bowel prep for a colonoscopy . Due to pain she decided not to have the colonoscopy and come to the emergency department for further evaluation. She also complained of subjective fever and chills. Denied events of vomiting. Denies headache, palpitations, shortness on breath, chest pain, cough dizziness or weakness. She did not report any acute urinary symptoms. No confusion noted . She does take furosemide daily and has not been taking the warfarin as she was advised to stop taking it before the colonoscopy. Patient denied alcohol abuse, illicit drug use or tobacco smoking. Blood workup showed no leukocytosis or thrombocytopenia. Hemoglobin was normal. Serum Creatinine and BUN are elevated, 2.31 and 22 respectively. Her creatinine in April of this year was normal. LFTs, albumin, total protein and lipase are normal. Abdomen pelvis CT scan showed moderate volume ascites, fluid collection in the left retroperitoneum (similar to prior) and trace right pleural effusion. Echocardiogram done December 2022 showed normal LVF function without significant valve disease. She was admitted for further management. Nephrology has been consulted to assist in her clinical care during her current hospital stay Review of Systems Review of Systems Yes all other systems are reviewed and are negative [facility] Past Medical History Medical History (Updated 07/13/23 @ 07:28 by Edwige Lundberg MD) Hyponatremia Cirrhosis of liver with ascites Acute kidney insufficiency UTI (urinary tract infection) Cervical cancer Lymphedema Cardiac arrest DVT (deep venous thrombosis) Social History Social History Household Members: Family Housing: Apartment Do you presently have visiting nurse or other home services: Yes Alcohol intake: never Comment: DAUGHTER STAYING OVERNIGHT Patient Tobacco Use Status: Never used Tobacco Smoked in Last 30 Days: No Use of substances other than those prescribed or required for medical reasons: No Advance Directives: Yes Advance Directives on File: Yes Advance Directives Date on File: 01/03/23 Nutrition Risks: No Nutritional Risk Patient : No service: No Meds Allergies Allergy/AdvReac Type Severity Reaction Status Date / Time No Known Allergies Allergy Verified 07/12/23 21:05 [No Known Allergies*] Active Medications: Current Medications Benztropine Mesylate (Benztropine Mesylate 0.5 Mg Tablet) 0.5 mg PO BID PRN PRN Reason: dystonias Bupropion HCl (Bupropion Hcl Xl 300 Mg Tab.Er.24h) 300 mg PO DAILY [facility] Last Admin: 07/13/23 09:34 Dose: 300 mg Bupropion HCl (Bupropion Hcl Xl 150 Mg Tab.Er.24h) 150 mg PO DAILY [facility] Last Admin: 07/13/23 09:35 Dose: 150 mg Escitalopram Oxalate (Escitalopram Oxalate 20 Mg Tablet) 20 mg PO DAILY@0900 [facility] Last Admin: 07/13/23 09:35 Dose: 20 mg Hydroxyzine HCl (Hydroxyzine Hcl 25 Mg Tablet) 25 mg PO TID PRN PRN Reason: Anxiety Lactated Ringer's (Lr) 1,000 mls @ 100 mls/hr IVCONT .Q10H [facility] Last Admin: 07/13/23 16:40 Dose: 100 mls/hr Albumin Human (Kedbumin 25 %) 100 mls @ 100 mls/hr IV Q6H [facility] Stop: 07/14/23 06:59 Last Infusion: 07/13/23 19:14 Dose: Infused Loratadine (Loratadine 10 Mg Tablet) 10 mg PO DAILY [facility] Last Admin: 07/13/23 09:35 Dose: 10 mg Nystatin (Nystatin Powder 15 Gm Bottle) 1 appl TOPICAL BID [facility]; Protocol Ondansetron HCl (Ondansetron Odt 4 Mg Tab.Rapdis) 4 mg TRANSLINGU BID [facility] Oxycodone HCl (Oxycodone Hcl Immed Release 5 Mg Tablet) 5 mg PO Q6H PRN PRN Reason: Pain, Severe (Pain Scale 7-10) Last Admin: 07/13/23 15:03 Dose: 5 mg Pantoprazole Sodium (Pantoprazole Sodium 40 Mg/10 Ml Vial) 40 mg IVPUSH BID@0630,1630 [facility] Last Admin: 07/13/23 19:11 Dose: 40 mg Risperidone (Risperidone Microspheres 50 Mg/2 Ml Syringe) 50 mg IM Q14D [facility] Sodium Chloride (0.9 % Sodium Chloride Flush 3 Ml Syringe) 3 ml IVFLUSH QSHIFT [facility] Last Admin: 07/13/23 15:50 Dose: Not Given Sucralfate (Sucralfate 1 Gm Tablet) 1 gm PO QIDACHS [facility] Triamcinolone Acetonide (Triamcinolone Acet 0.025 % Cream 15 Gm Tube) 1 appl TOPICAL BID PRN PRN Reason: Rash Home Medications ?Medication ?Instructions ?Recorded ?Confirmed ?Last Taken ?Type bupropion HCl 200 mg tablet,12 hr 200 mg PO BID depressive disorder 01/03/23 07/13/23 07/12/23 History sustained-release citalopram 40 mg tablet 40 mg PO QAM depressive disorder 01/03/23 07/13/23 07/12/23 History furosemide 40 mg tablet 40 mg PO DAILY 01/03/23 07/13/23 07/12/23 History hydroxyzine pamoate 25 mg capsule 25 mg PO TID PRN Anxiety 01/03/23 07/13/23 Unknown History loratadine 10 mg tablet 10 mg PO DAILY 01/03/23 07/13/23 07/12/23 History ondansetron HCl 4 mg tablet 4 mg PO BID Nausea And Vomiting 01/03/23 07/13/23 07/12/23 History risperidone microspheres 50 mg/2 50 mg IM Q2W 01/03/23 07/13/23 07/01/23 History mL intramuscular susp,ext release (Risperdal Consta) zolpidem 10 mg tablet 10 mg PO BEDTIME PRN Insomnia 01/03/23 07/13/23 07/12/23 History triamcinolone acetonide 0.025 % 1 appl topical BID PRN Rash 03/11/23 07/13/23 Unknown History topical ointment warfarin 5 mg tablet 10 mg PO DAILY 03/11/23 07/13/23 07/12/23 History benztropine 0.5 mg tablet 0.5 mg PO BID PRN dystonias 07/13/23 07/13/23 Unknown History nystatin 100,000 unit/gram topical 1 appl topical BID 07/13/23 07/13/23 07/12/23 History powder warfarin 4 mg tablet 4 - 8 mg PO DAILY 07/13/23 Unknown History warfarin 6 mg tablet 6 mg PO DAILY 07/13/23 Unknown History Physical Exam Vital Signs: Last Vital Signs Temp 98.2 F 07/13/23 15:09 Pulse 92 07/13/23 15:09 Resp 18 07/13/23 15:09 BP 115/67 07/13/23 15:09 Pulse Ox 98 07/13/23 15:09 O2 Del Method Room Air 07/13/23 15:09 BMI result Body Mass Index 46.9 Const General: comfortable and no acute distress HEENT Head: Yes normocephalic Mouth: Normal oral and palatal mucosa present Eyes EOM: EOMs intact bilaterally Neck Neck: Yes supple Resp Auscultation: clear to auscultation bilaterally Cardio Jugular venous distension: no JVD Rate: regular rate GI Palpation (GI): Soft to palpation Auscultation: normal bowel sounds General: Yes no CVA tenderness Back/Spine/Pelvis Back: no CVA tenderness Skin General skin exam: no rashes or lesions noted Neuro General: moves all extremities Results Lab Results 07/12/23 21:55 07/13/23 09:58 Lab results: Chemistry 07/12/23 07/13/23 21:55 09:58 Sodium 132 L 135 Potassium 4.2 D 4.5 Carbon Dioxide 26 24 BUN 22 H 23 H Creatinine 2.31 H 2.59 H Calcium 9.1 8.8 Hematology 07/12/23 21:55 WBC 6.2 Hgb 13.7 Plt Count 226 Urinalysis 07/13/23 02:54 Urine Color Yellow Urine Appearance Clear Urine pH 5.5 Ur Specific [place] <= 1.005 Urine Protein Negative Urine Glucose (UA) Negative Urine Ketones Negative Urine Blood Negative Urine Nitrite Negative Ur Leukocyte Esterase Moderate (2+) H Urine RBC 0-2 Urine WBC 11-20 H Ur Squamous Epith Cells 0-2 Hyaline Casts 0-2 Assessment and Plan (1) DAVID (acute kidney injury): Status: Acute Plan Acute Kidney Injury due to compromise in renal perfusion/tubular injury Urine studies reviewed; No reason to suspect AIN/ GN Ordered IV Albumin 25 % 25 Gm Q 6; Diuretics on hold If serum creatinine goes up further, shall repeat U Na, C3/C4/U Eos No indication for renal replacement therapy for now Labs AM; Shall closely follow up Procedures Date of Service Date of Service: 07/13/23
[2023-07-13 20:14] VITALS: BP 103/61; PULSE 99; RESP 16; TEMP 36.8; O2SAT 95
--- NOTE | 2023-07-13 20:32 | PC.NURSE ---
Daughter @ bedside requested and given update on mothers condition. Plan of care ongoing.
--- NOTE | 2023-07-13 20:52 | MHC.CM.PN ---
CM met with admitted patient with bed assignment pending. A&Ox4. Bengali speaking only. rental car deliverer used. Pt lives with her daughter and son. Her son and her brother are her [employer] SYSTEMS ENGINEER'as. She has about 50 hours/wk Day and nights from [place]. She has a nurse from [facility] for medication management on Tuesday and Tuesday. [facility] notified of patient admission via [facility] Port. HCP on file. PCP verified. THRIVE assessment completed. Pt has stable housing, but has some issues with back rent and mice. Given 413 pamphlet. DaughterManisha present at bedside. D/C aj is home with existing services. Pt has been staying with her mother while the landlord exterminates the mice. Family will transport home. CM will follow for any discharge needs.
[2023-07-13 22:02] VITALS: BP 118/55; PULSE 108; RESP 16; TEMP 36.7; O2SAT 93
[2023-07-13 22:12] VITALS: BMI 45.6
[2023-07-13] MEDS: Sucralfate 1 GM TABLET PO (23:18)
[2023-07-13] MEDS: Nystatin Powder 15 GM BOTTLE 1 APPL TOPICAL (23:18)
[2023-07-13] MEDS: Ondansetron ODT 4 MG TAB.RAPDIS TRANSLINGU (23:18)
[2023-07-14 02:51] VITALS: BP 97/54; PULSE 109; RESP 16; TEMP 36.6; O2SAT 96
--- NOTE | 2023-07-14 03:13 | PC.NURSE ---
Patient admitted to [facility]3 from ED at ~22:00 for generalized abdominal pain. Pt is A&Ox4, Yoruba speaking, reverse unit operator fisherman utilized at bedside. On routine scheduled vitals this morning pt's spo2 was noted to be 89% on RA, did not improve with boosting and placing in high-fowlers or deep breathing. Pt denied sob and breathing was observed even and unlabored without distress. Covering Dr. Scott Lundberg notified; pt was placed on 2L NC with spo2 improved to 96%. Of note, pt did have right trace pleural effusion noted on CT abdomen/pelvis done in the ED. Discussed this, U/A, and vitals trend with MD; O2 order placed by MD, otherwise no new orders advised. Mcallister with adequate urine output, cyu. Plan of care continues. Please see admission assessment, tasks, and MAR for full details.
[2023-07-14] MEDS: Lactated Ringers 1,000 ML 100 ML IVCONT ×2 (03:40→17:29)
[2023-07-14] MEDS: Pantoprazole Sodium 40 MG/10 ML VIAL IVPUSH ×2 (05:41→17:29)
[2023-07-14] MEDS: Albumin Human 25 % 100 ML IV (05:41)
[2023-07-14 07:13] VITALS: BP 90/51; PULSE 104; RESP 18; TEMP 36.6; O2SAT 95
[2023-07-14 07:37] LABS: Alanine Aminotransferase 8 U/L (0-31); Alkaline Phosphatase 63 U/L (39-117); Anion Gap 8 (12-20); Aspartate Amino Transferase 9 U/L (5-31); Bilirubin Total 0.9 mg/dL (0.0-1.0); Blood Urea Nitrogen 10 mg/dL (9-16); Calcium 8.6 mg/dL (8.4-10.2); Carbon Dioxide 30 mmol/L (22-29); Chloride 107 mmol/L (96-108); Creatinine Clr Calc Pharmacy 98.9; Estimated Glomerular Filt Rate > 60; Glucose Random 96 mg/dL (60-115); Potassium 4.1 mmol/L (3.3-5.1); Sodium 141 mmol/L (135-145)
[2023-07-14] MEDS: Sucralfate 1 GM TABLET PO ×4 (08:19→19:15)
[2023-07-14] MEDS: Nystatin Powder 15 GM BOTTLE 1 APPL TOPICAL ×2 (08:19→19:15)
[2023-07-14] MEDS: Loratadine 10 MG TABLET PO (08:19)
[2023-07-14] MEDS: Escitalopram Oxalate 20 MG TABLET PO (08:19)
[2023-07-14] MEDS: buPROPion HCl XL 150 MG TAB.ER.24H PO (08:19)
[2023-07-14] MEDS: buPROPion HCl XL 300 MG TAB.ER.24H PO (08:19)
[2023-07-14] MEDS: Ondansetron ODT 4 MG TAB.RAPDIS TRANSLINGU ×2 (08:19→19:15)
--- NOTE | 2023-07-14 11:16 | P.PNIM_ITS ---
Subjective Subjective Date of Service: 07/14/23 Interval History: Ascitis ,david Review of Systems ascitis and david somewhat improving boderline bp abd pain improved , no fever Physical Exam 2 Vital Signs: Vital Signs: Last Vital Signs Temp 97.8 F 07/14/23 07:13 Pulse 104 H 07/14/23 07:13 Resp 18 07/14/23 07:13 BP 90/51 L 07/14/23 07:13 Pulse Ox 95 07/14/23 07:13 O2 Del Method Nasal Cannula 07/14/23 07:13 O2 Flow Rate 2 07/14/23 07:13 BMI result Body Mass Index 45.6 Appearance: Alert.? Oriented X3.? cvs: rrr, [id number] , no murmur res: clear to auscultation ,no rhonchii or wheezing abd: no rebound or guarding ,nt, bs present,ascitis improving. ext pulses present , no cyanosis . neuro: axo3 , nonfocal. Objective Data Active Medications Benztropine Mesylate (Benztropine Mesylate 0.5 Mg Tablet) 0.5 mg PO BID PRN PRN Reason: dystonias Bupropion HCl (Bupropion Hcl Xl 300 Mg Tab.Er.24h) 300 mg PO DAILY [facility] Last Admin: 07/14/23 08:19 Dose: 300 mg Documented By: KATHY Bupropion HCl (Bupropion Hcl Xl 150 Mg Tab.Er.24h) 150 mg PO DAILY [facility] Last Admin: 07/14/23 08:19 Dose: 150 mg Documented By: KATHY Escitalopram Oxalate (Escitalopram Oxalate 20 Mg Tablet) 20 mg PO DAILY@0900 [facility] Last Admin: 07/14/23 08:19 Dose: 20 mg Documented By: KATHY Hydroxyzine HCl (Hydroxyzine Hcl 25 Mg Tablet) 25 mg PO TID PRN PRN Reason: Anxiety Lactated Ringer's (Lr) 1,000 mls @ 100 mls/hr IVCONT .Q10H [facility] Last Infusion: 07/14/23 10:43 Dose: 100 mls/hr Documented By: KATHY Loratadine (Loratadine 10 Mg Tablet) 10 mg PO DAILY [facility] Last Admin: 07/14/23 08:19 Dose: 10 mg Documented By: KATHY Nystatin (Nystatin Powder 15 Gm Bottle) 1 appl TOPICAL BID [facility]; Protocol Last Admin: 07/14/23 08:19 Dose: 1 appl Documented By: KATHY Ondansetron HCl (Ondansetron Odt 4 Mg Tab.Rapdis) 4 mg TRANSLINGU BID [facility] Last Admin: 07/14/23 08:19 Dose: 4 mg Documented By: KATHY Oxycodone HCl (Oxycodone Hcl Immed Release 5 Mg Tablet) 5 mg PO Q6H PRN PRN Reason: Pain, Mild (Pain Scale 1-3) Last Admin: 07/13/23 23:18 Dose: 5 mg Documented By: PACO Pantoprazole Sodium (Pantoprazole Sodium 40 Mg/10 Ml Vial) 40 mg IVPUSH BID@0630,1630 [facility] Last Admin: 07/14/23 05:41 Dose: 40 mg Documented By: PACO Risperidone (Risperidone Microspheres 50 Mg/2 Ml Syringe) 50 mg IM Q14D [facility] Sodium Chloride (0.9 % Sodium Chloride Flush 3 Ml Syringe) 3 ml IVFLUSH QSHIFT [facility] Last Admin: 07/14/23 08:19 Dose: Not Given Documented By: KATHY Non-Admin Reason: IV Running Sucralfate (Sucralfate 1 Gm Tablet) 1 gm PO QIDACHS [facility] Last Admin: 07/14/23 10:42 Dose: 1 gm Documented By: KTAHY Triamcinolone Acetonide (Triamcinolone Acet 0.025 % Cream 15 Gm Tube) 1 appl TOPICAL BID PRN PRN Reason: Rash Labs 07/12/23 21:55 07/14/23 06:53 Labs: Laboratory Results - last 24 hr 07/13/23 07/14/23 11:06 06:53 Anion Gap 8 L Estim Creat Clear Calc 98.9 Estimated GFR > 60 Random Glucose 96 Calcium 8.6 Total Bilirubin 0.9 AST 9 ALT 8 Alkaline Phosphatase 63 Total Protein 6.0 L Albumin 4.0 Peritoneal WBC 0.411 Peritoneal RBC < 0.002 Periton Neutrophils 14 Periton Lymphocytes 2 Peritoneal Monocytes 10 Peritoneal Other Cells 74 Microbiology Microbiology Results: Microbiology 07/13/23 11:06 Gram Stain - Final Peritoneal Fluid Anaerobic Culture - Preliminary No growth to date. Body Fluid Culture - Preliminary No growth to date. Assessment and Plan (1) Hyponatremia: Status: Acute (2) DAVID (acute kidney injury): Status: Acute (3) Liver cirrhosis secondary to MALDONADO: Status: Acute Plan 52 years old woman admitted with: Worsening ascites associated with abdominal pain s/p paracentesis ,1 liter yesllowish fluid removed . ascitis fluid does not show SBP. plan: Furosemide on hold due to DAVID/boderline bp. on Protonix 40 mg IV BID -? possible acute gastritis. Pain control with oxycodone,continue ivf. Trace right pleural effusion likely secondary to 3rd space. No respiratory symptoms reported. Normal oxygen saturation on room air Acute kidney injury likely multifactorial: Diarrhea, diuretic use (takes furosemide but unsure if she takes spironolactone) and ascites. plan: keep francisco for today for fluid mangement . Doubt hepatorenal syndrome. Gentle IV fluids. Hold furosemide. Antidiarrhea medication as needed- monitor renal function and avoid nephrotoxic agents. Hyponatremia, mild. Likely secondary to 3rd spacing and/or diarrhea + use of furosemide. seems improved with hydration. Hx of DVT. INR is subtherapeutic/normal as the patient has not been taking her warfarin (she was advised to stop taking it 5 days prior to colonoscopy). Restart warfarin after paracentesis. Hx of cervical cancer s/p pelvic radiation. Outpatient follow-up. GERD. Continue PPI. Schizophrenia, anxiety and depression. Continue home psych meds. SCDs (restart warfarin after paracentesis, will check with Gi if no colonoscopy planned) ongoning hospitalization stay for 48-72 hrs for worsening ascites, abdominal pain and DAVID therapy and evaluation. Patient will need IV fluids, expert eval ,?colonoscopy and close monitoring of blood workup. Quality Stroke Does the patient have a stroke diagnosis?: No VTE Prior VTE?: No VTE Risk Level:: Medical - moderate - high VTE Device Contraindication: N/A - Device Ordered VTE Drug Contraindication: N/A - Med Ordered
[2023-07-14 11:52] VITALS: BP 96/52; PULSE 93; RESP 18; TEMP 36.2; O2SAT 94
--- NOTE | 2023-07-14 12:41 | P.PNNP_ITS ---
Subjective Subjective Date of Service: 07/14/23 Interval history: Events noted Physical Exam 2 Vital Signs: Vital Signs: Last Vital Signs Temp 97.1 F 07/14/23 11:52 Pulse 93 07/14/23 11:52 Resp 18 07/14/23 11:52 BP 96/52 L 07/14/23 11:52 Pulse Ox 94 07/14/23 11:52 O2 Del Method Nasal Cannula 07/14/23 11:52 O2 Flow Rate 2 07/14/23 11:52 BMI result Body Mass Index 45.6 Const: General: comfortable and no acute distress HEENT: Head: Yes normocephalic Mouth: Normal oral and palatal mucosa present Eyes: EOM: EOMs intact bilaterally Neck: Neck: Yes supple Resp: Auscultation: clear to auscultation bilaterally Cardio: Jugular venous distension: no JVD Rate: regular rate GI: Palpation (GI): Soft to palpation Auscultation: normal bowel sounds : General: Yes no CVA tenderness Back/Spine/Pelvis: Back: no CVA tenderness Skin: General skin exam: no rashes or lesions noted Neuro: General: moves all extremities Objective Data Labs 07/12/23 21:55 07/14/23 06:53 Labs: Laboratory Results - last 24 hr 07/13/23 07/14/23 11:06 06:53 Sodium 141 Potassium 4.1 Chloride 107 Carbon Dioxide 30 H Anion Gap 8 L BUN 10 Creatinine 0.77 Estim Creat Clear Calc 98.9 Estimated GFR > 60 Random Glucose 96 Calcium 8.6 Total Bilirubin 0.9 AST 9 ALT 8 Alkaline Phosphatase 63 Total Protein 6.0 L Albumin 4.0 Periton Neutrophils 14 Periton Lymphocytes 2 Peritoneal Monocytes 10 Peritoneal Other Cells 74 Microbiology Microbiology Results: Microbiology 07/13/23 11:06 Peritoneal Fluid Gram Stain - Final 07/13/23 11:06 Peritoneal Fluid Anaerobic Culture - Preliminary No growth to date. 07/13/23 11:06 Peritoneal Fluid Body Fluid Culture - Preliminary No growth to date. Procedures Date of Service Date of Service: 07/14/23 Assessment & Plan Assessment and plan (1) DAVID (acute kidney injury): Status: Acute Plan Acute Kidney Injury due to compromise in renal perfusion/tubular injury Urine studies reviewed; No reason to suspect AIN/ GN Creatinine is back to baseline Midodrine to keep SBP > 90 Avoid hypotension Time Spent With Patient Time: Total time managing care of this patient today ____ minutes. Progress Note: Quality Stroke Does the patient have a stroke diagnosis?: No
--- NOTE | 2023-07-14 13:36 | P.PNGI_ITS ---
Subjective Subjective Date of Service: 07/14/23 Interval History: Patient seen and evaluated bedside. Continues to report lower abdominal discomfort. Also reports worsening lower leg swelling. Labs reviewed, renal injury resolved. Critical Care Time (minutes): 0 Physical Exam 2 Vital Signs: Vital Signs: Last Vital Signs Temp 97.1 F 07/14/23 11:52 Pulse 93 07/14/23 11:52 Resp 18 07/14/23 11:52 BP 96/52 L 07/14/23 11:52 Pulse Ox 94 07/14/23 11:52 O2 Del Method Nasal Cannula 07/14/23 11:52 O2 Flow Rate 2 07/14/23 11:52 BMI result Body Mass Index 45.6 No acute distress Abdomen soft, mildly tender, distended Plus three pitting edema in bilateral lower extremity Objective Data Labs 07/12/23 21:55 07/14/23 06:53 Labs: Laboratory Results - last 24 hr 07/14/23 06:53 Sodium 141 Potassium 4.1 Chloride 107 Carbon Dioxide 30 H Anion Gap 8 L BUN 10 Creatinine 0.77 Estim Creat Clear Calc 98.9 Estimated GFR > 60 Random Glucose 96 Calcium 8.6 Total Bilirubin 0.9 AST 9 ALT 8 Alkaline Phosphatase 63 Total Protein 6.0 L Albumin 4.0 Microbiology Microbiology Results: Microbiology 07/13/23 Unknown Urine clean catch - Urine elliott top Urine Culture - Final Strep agalactiae (Grp B) 07/13/23 11:06 Peritoneal Fluid Gram Stain - Final 07/13/23 11:06 Peritoneal Fluid Anaerobic Culture - Preliminary No growth to date. 07/13/23 11:06 Peritoneal Fluid Body Fluid Culture - Preliminary No growth to date. Procedures Date of Service Date of Service: 07/14/23 Progress Note: A&P Assessment and plan (1) Abdominal pain: Status: Acute (2) DAVID (acute kidney injury): Status: Acute (3) Liver cirrhosis secondary to MALDONADO: Status: Acute (4) Ascites: Status: Acute Plan Prerenal injury has resolved with fluid challenge. Kidney function back to baseline. Based on exam, suspect still has some residual ascites. Would recommend low-dose diuretics with Lasix 20 and spironolactone 50, and repeat renal function checked in 5-7 days. Can be done as outpatient. Low-sodium diet. Patient also advised to follow-up with her outpatient marketing and public relations manager (established at [facility]) after discharge. Time Spent With Patient Time: Total time managing care of this patient today ____ minutes. Quality Stroke Does the patient have a stroke diagnosis?: No VTE Prior VTE?: No VTE Risk Level:: Medical - moderate - high VTE Device Contraindication: N/A - Device Ordered VTE Drug Contraindication: N/A - Med Ordered
--- NOTE | 2023-07-14 14:44 | P.CDIM_ITS ---
PROVIDER RESPONSE TEXT: To clarify, the appropriate diagnosis supported by the clinical indicators: Obesity Due to excess calories QUERY TEXT: PHYSICIAN'S DOCUMENTATION REQUEST Date of Query: 07/14/2023 02:36 PM EDT Patient Name: Emilee Celis Admit Date: 07/13/2023 Dear Celestine Henderson, A review of the medical record indicates additional documentation may be needed. Please review below and update the documentation accordingly. Clinical Indicators: Height: ( ) 5'1 Weight: ( ) 109.6 kg BMI: ( ) 45.7 Other Clinical Notes Supporting Significance of the BMI: No Nutritional Assessment in EMR If possible, please provide an associated diagnosis related to the abnormal BMI, such as: Overweight Obesity Due to excess calories Obesity Drug induced Obesity Due to other cause Specify the other cause Severe or Morbid Obesity With alveolar hypoventilation Severe or Morbid Obesity Without alveolar hypoventilation BMI is not significant Other (explain) Clinically unable to determine (explain) Thank you, Carrie Whiting RN Use of terms such as suspected, likely, concern for, or probable (associated with a specific diagnosi s that is being evaluated, monitored, or treated as if it exists) are acceptable and can be coded in the inpatient se tting, when documented at the time of discharge. Please use your independent medical judgment in providing your response. THIS QUERY IS PART OF THE PERMANENT MEDICAL RECORD
[2023-07-14 14:48] LABS: INTERNATIONAL NORM RATIO 1.4 (0.9-1.1); Prothrombin Time 17.1 SEC (11.1-13.3)
[2023-07-14 15:15] VITALS: BP 101/61; PULSE 80; RESP 18; TEMP 36.3; O2SAT 98
[2023-07-14] MEDS: Warfarin Sodium 10 MG TABLET PO (17:32)
[2023-07-14 19:59] VITALS: BP 105/52; PULSE 88; RESP 20; TEMP 36.3; O2SAT 94
[2023-07-15] VITALS (8 sets, daily range): BP systolic 103–118; BP diastolic 52–63; PULSE 75–89; RESP 12–20; TEMP 36.3–37; O2SAT 92–97
[2023-07-15] MEDS: Pantoprazole Sodium 40 MG/10 ML VIAL IVPUSH ×2 (05:53→15:42)
[2023-07-15 07:18] LABS: INTERNATIONAL NORM RATIO 1.4 (0.9-1.1); Prothrombin Time 16.5 SEC (11.1-13.3)
[2023-07-15 07:21] LABS: Anion Gap 11 (12-20); Blood Urea Nitrogen 7 mg/dL (9-16); Carbon Dioxide 28 mmol/L (22-29); Chloride 106 mmol/L (96-108); Creatinine Clr Calc Pharmacy 115.4; Estimated Glomerular Filt Rate > 60; Glucose Random 86 mg/dL (60-115); Potassium 4.1 mmol/L (3.3-5.1); Sodium 141 mmol/L (135-145)
[2023-07-15] MEDS: Ondansetron ODT 4 MG TAB.RAPDIS TRANSLINGU ×2 (07:36→21:07)
[2023-07-15] MEDS: Sucralfate 1 GM TABLET PO ×4 (07:36→21:08)
[2023-07-15] MEDS: Escitalopram Oxalate 20 MG TABLET PO (07:36)
[2023-07-15] MEDS: buPROPion HCl XL 300 MG TAB.ER.24H PO (07:36)
[2023-07-15] MEDS: buPROPion HCl XL 150 MG TAB.ER.24H PO (07:36)
[2023-07-15] MEDS: 0.9 % Sodium Chloride Flush 3 ML SYRINGE IVFLUSH ×2 (07:37→15:46)
[2023-07-15 07:44] LABS: Cortisol Random 10.6 ug/dL
--- NOTE | 2023-07-15 10:53 | MHC.CM.PN ---
Per MD rounds patient is not medically cleared for dc at this time. No change to dc plan, home resume services. CM will continue to follow.
[2023-07-15] MEDS: Lactated Ringers 1,000 ML 100 ML IVCONT ×2 (11:40→21:08)
[2023-07-15] MEDS: Nystatin Powder 15 GM BOTTLE 1 APPL TOPICAL ×2 (11:41→21:09)
[2023-07-15] MEDS: Furosemide 20 MG TABLET PO (13:37)
[2023-07-15] MEDS: Albumin Human 25 % 100 ML 133.33 ML IV ×2 (13:38→15:42)
--- NOTE | 2023-07-15 14:56 | PC.NURSE ---
@ 14:50 this RN removed francisco catheter w/o incident after consulting w/ Dr Beltre. Catheter is intact after removal. Pt is due for bladder scan at 20:50
--- NOTE | 2023-07-15 15:05 | HO.PM.IMPN ---
Subjective Subjective Date of Service: 07/15/23 Interval History: Ascitis ,david Review of Systems ascitis and david somewhat improving, blood pressure improving Physical Exam Vital Signs: Vital Signs: Last Vital Signs Temp 98.6 F 07/15/23 12:00 Pulse 84 07/15/23 12:00 Resp 14 07/15/23 12:00 BP 110/62 07/15/23 13:37 Pulse Ox 96 07/15/23 12:00 O2 Del Method Room Air 07/15/23 12:00 O2 Flow Rate 2 07/15/23 03:09 BMI result Body Mass Index 45.6 Appearance: Alert.? Oriented X3.? cvs: rrr, [id number] , no murmur res: clear to auscultation ,no rhonchii or wheezing abd: no rebound or guarding ,nt, bs present,ascitis improving. ext pulses present , no cyanosis . neuro: axo3 , nonfocal. Objective Data Active Medications Benztropine Mesylate (Benztropine Mesylate 0.5 Mg Tablet) 0.5 mg PO BID PRN PRN Reason: dystonias Bupropion HCl (Bupropion Hcl Xl 300 Mg Tab.Er.24h) 300 mg PO DAILY [facility] Last Admin: 07/15/23 07:36 Dose: 300 mg Documented By: SELAM Bupropion HCl (Bupropion Hcl Xl 150 Mg Tab.Er.24h) 150 mg PO DAILY [facility] Last Admin: 07/15/23 07:36 Dose: 150 mg Documented By: SELAM Escitalopram Oxalate (Escitalopram Oxalate 20 Mg Tablet) 20 mg PO DAILY@0900 [facility] Last Admin: 07/15/23 07:36 Dose: 20 mg Documented By: SELAM Furosemide (Furosemide 20 Mg Tablet) 20 mg PO DAILY [facility]; Protocol Last Admin: 07/15/23 13:37 Dose: 20 mg Documented By: SELAM Hydroxyzine HCl (Hydroxyzine Hcl 25 Mg Tablet) 25 mg PO TID PRN PRN Reason: Anxiety Lactated Ringer's (Lr) 1,000 mls @ 100 mls/hr IVCONT .Q10H [facility] Last Admin: 07/15/23 11:40 Dose: 100 mls/hr Documented By: SELAM Nystatin (Nystatin Powder 15 Gm Bottle) 1 appl TOPICAL BID [facility]; Protocol Last Admin: 07/15/23 11:41 Dose: 1 appl Documented By: SELAM Ondansetron HCl (Ondansetron Odt 4 Mg Tab.Rapdis) 4 mg TRANSLINGU BID [facility] Last Admin: 07/15/23 07:36 Dose: 4 mg Documented By: SELAM Oxycodone HCl (Oxycodone Hcl Immed Release 5 Mg Tablet) 5 mg PO Q6H PRN PRN Reason: Pain, Mild (Pain Scale 1-3) Last Admin: 07/13/23 23:18 Dose: 5 mg Documented By: PACO Pantoprazole Sodium (Pantoprazole Sodium 40 Mg/10 Ml Vial) 40 mg IVPUSH BID@0630,1630 [facility] Last Admin: 07/15/23 05:53 Dose: 40 mg Documented By: JULES Risperidone (Risperidone Microspheres 50 Mg/2 Ml Syringe) 50 mg IM Q14D [facility] Sodium Chloride (0.9 % Sodium Chloride Flush 3 Ml Syringe) 3 ml IVFLUSH QSHIFT [facility] Last Admin: 07/15/23 07:37 Dose: 3 ml Documented By: SELAM Spironolactone (Spironolactone 25 Mg Tablet) 25 mg PO BID@0900,1800 [facility]; Protocol Sucralfate (Sucralfate 1 Gm Tablet) 1 gm PO QIDACHS [facility] Last Admin: 07/15/23 10:59 Dose: 1 gm Documented By: NAREN Triamcinolone Acetonide (Triamcinolone Acet 0.025 % Cream 15 Gm Tube) 1 appl TOPICAL BID PRN PRN Reason: Rash Warfarin Sodium (Warfarin Sodium 10 Mg Tablet) 10 mg PO DAILY@1800 [facility] Last Admin: 07/14/23 17:32 Dose: 10 mg Documented By: FALLONARTB Labs 07/12/23 21:55 07/15/23 05:34 Labs: Laboratory Results - last 24 hr 07/15/23 05:34 Hold Purple Top SEE NOTE PT 16.5 H INR 1.4 H Anion Gap 11 L Estim Creat Clear Calc 115.4 Estimated GFR > 60 Random Glucose 86 Calcium 9.0 Random Cortisol 10.6 Microbiology Microbiology Results: Microbiology 07/13/23 11:06 Gram Stain - Final Peritoneal Fluid Anaerobic Culture - Preliminary No growth to date. Body Fluid Culture - Final No growth after 2 days 07/13/23 Unknown Urine Culture - Final Urine clean catch - Urine elliott top Strep agalactiae (Grp B) Assessment and Plan (1) Hyponatremia: Status: Acute (2) DAVID (acute kidney injury): Status: Acute (3) Liver cirrhosis secondary to MALDONADO: Status: Acute Plan 52 years old woman admitted with: Worsening ascites associated with abdominal pain s/p paracentesis ,1 liter yesllowish fluid removed . ascitis fluid does not show SBP. plan:bp and david improved dc ivf ,d/w Gi-added low dose lasix/spirinolactone switch to oral ppi she might nees colonoscopy outapatient outpatient . Acute kidney injury likely multifactorial: Diarrhea, diuretic use (takes furosemide but unsure if she takes spironolactone) and ascites. dc francisco. improved with hydration ,Antidiarrhea medication as needed- monitor renal function and avoid nephrotoxic agents. Hyponatremia, mild. Likely secondary to 3rd spacing and/or diarrhea + use of furosemide. seems improved with hydration. Hx of DVT. INR is subtherapeutic/normal as the patient has not been taking her warfarin (she was advised to stop taking it 5 days prior to colonoscopy). Restart warfarin after paracentesis. Hx of cervical cancer s/p pelvic radiation. Outpatient follow-up. GERD. Continue PPI. Schizophrenia, anxiety and depression. Continue home psych meds. SCDs (restarted warfarin after paracentesis ) ongoning hospitalization stay for 48-72 hrs for worsening ascites, abdominal pain and DAVID therapy -seems improved,need to moniter renal function on diuretics -renal function and electrolytes. Quality Stroke Does the patient have a stroke diagnosis?: No VTE Prior VTE?: No VTE Risk Level:: Medical - moderate - high VTE Device Contraindication: N/A - Device Ordered VTE Drug Contraindication: N/A - Med Ordered
--- NOTE | 2023-07-15 18:17 | PC.NURSE ---
Pt was able to void at 1700 w/o difficulty. Pt reports no burning, hesitancy, or discoloration in urine
[2023-07-15] MEDS: Warfarin Sodium 10 MG TABLET PO (18:19)
[2023-07-15] MEDS: Spironolactone 25 MG TABLET PO (18:19)
[2023-07-15] MEDS: Zolpidem Tartrate 5 MG TABLET PO (22:09)
[2023-07-16 02:56] VITALS: BP 112/58; PULSE 74; RESP 16; TEMP 36.2; O2SAT 93
[2023-07-16] MEDS: Pantoprazole Sodium 40 MG/10 ML VIAL IVPUSH (06:01)
[2023-07-16 06:59] LABS: INTERNATIONAL NORM RATIO 1.4 (0.9-1.1); Prothrombin Time 17.4 SEC (11.1-13.3)
[2023-07-16 07:12] LABS: Anion Gap 13 (12-20); Blood Urea Nitrogen 8 mg/dL (9-16); Calcium 9.6 mg/dL (8.4-10.2); Carbon Dioxide 29 mmol/L (22-29); Chloride 104 mmol/L (96-108); Creatinine Clr Calc Pharmacy 108.8; Estimated Glomerular Filt Rate > 60; Glucose Random 86 mg/dL (60-115); Sodium 142 mmol/L (135-145)
[2023-07-16 07:32] VITALS: BP 116/61; PULSE 69; RESP 16; TEMP 36.7; O2SAT 94
[2023-07-16 08:57] VITALS: BP 116/61
[2023-07-16] MEDS: Furosemide 20 MG TABLET PO (08:57)
[2023-07-16] MEDS: Ondansetron ODT 4 MG TAB.RAPDIS TRANSLINGU (08:57)
[2023-07-16] MEDS: Escitalopram Oxalate 20 MG TABLET PO (08:57)
[2023-07-16] MEDS: buPROPion HCl XL 150 MG TAB.ER.24H PO (08:57)
[2023-07-16] MEDS: Spironolactone 25 MG TABLET PO (08:57)
[2023-07-16] MEDS: buPROPion HCl XL 300 MG TAB.ER.24H PO (08:58)
[2023-07-16] MEDS: Sucralfate 1 GM TABLET PO (08:58)
[2023-07-16] MEDS: 0.9 % Sodium Chloride Flush 3 ML SYRINGE IVFLUSH (09:04)
[2023-07-16] MEDS: Warfarin Sodium 5 MG TABLET PO (09:12)
[2023-07-16 11:42] VITALS: BP 109/62; PULSE 72; RESP 18; TEMP 36.3; O2SAT 96
--- NOTE | 2023-07-16 11:43 | P.DS_ITS ---
DS: Providers Provider Date of Service: 07/16/23 Date of admission: 07/13/23 06:02 Date of discharge: 07/16/23 Primary care physician: Kristin Todd MD Consults: 07/13/23 11:22 Consult to Gastroenterology Routine Consulting Provider: [facility] Reason for consultation: liver cirrosis and possible hepatorenal Has provider been notified: No Consult to Nephrology Routine Consulting Provider: [facility] Reason for consultation: acitis ,renal failure Has provider been notified: No Attending physician on discharge: Celestine Henderson Discharging clinician: Celestine Henderson DS: Diagnosis Discharge Diagnosis (1) Hyponatremia: Status: Acute (2) DAVID (acute kidney injury): Status: Acute (3) Liver cirrhosis secondary to MALDONADO: Status: Acute DS: Summary Hospital Course Hospital Course: 52 years old woman with past medical history significant for liver cirrhosis (likely due to AMLDONADO), DAVID secondary to obstructive uropathy, type 2 diabetes mellitus -diet controlled, schizophrenia, GERD and cervical cancer s/p pelvic radiation and lower extremity DVT on warfarin presents to the emergency department complaining of generalized abdominal pain (more prominent in the epigastrium) since yesterday associated with worsening abdominal girth and nausea. She also complained of having diarrhea because she has been taking a bowel prep for a colonoscopy that was scheduled for yesterday. Due to pain she decided not to have the colonoscopy and come to the emergency department for further evaluation. She also complained of subjective fever and chills. Denied events of vomiting. Denies headache, palpitations, shortness on breath, chest pain, cough dizziness or weakness. She did not report any acute urinary symptoms. No confusion noted (according to patient's daughter who was at bedside). She does take furosemide daily and has not been taking the warfarin as she was advised to stop taking it before the colonoscopy. Patient denied alcohol abuse, illicit drug use or tobacco smoking. In the ED, she was found to have normal vital signs. Blood workup showed no leukocytosis or thrombocytopenia. Hemoglobin is normal. There is hyponatremia 132 and no other electrolyte imbalances. Creatinine and BUN are elevated, 2.31 and 22 respectively. Her creatinine in April of this year was normal. LFTs, albumin, total protein and lipase are normal. Abdomen pelvis CT scan showed moderate volume ascites, fluid collection in the left retroperitoneum (similar to prior) and trace right pleural effusion. Echocardiogram done December 2022 showed normal LVF function without significant valve disease. ED tx: NS 1 L bolus, Zofran 4 mg IV and famotidine 20 mg IV. Hospital course: Patient was admitted with diarrhea and borderline blood pressure which started due to colonoscopy prep, DAVID, hyponatremia, ascites: Patient was started on IV fluids, had paracentesis for ascites:With hydration, albumin- her DAVID and hyponatremia seems to be improved, status post paracentesis and less likely SBP. Patient seems to be improved significantly: Patient was started on low-dose Lasix and spironolactone-renal function so far seems fine. Monitor BMP outpatient. Further management of her ascites, liver disease, possible colonoscopy outpatient with her GI. hx of dvt: inr subtherpaeutic ,given extra warfarin 5 mg extra dose today , moniter inr outpatient , need outpatient d/w with GI about colonoscopy appointment before holding warfarin in future . constipation : had bm today , added colace and miralex prn. Morbid obesity: Encouraged to lose weight, cutdown calories. PT saw the patient recommended home PT. plan: lasix adjusted to 20 mg daily(due to recent david) ,added spirnolactone . moniter bmp due to above moniter inr -outpatient . Further management of her ascites, liver disease, possible colonoscopy outpatient with her GI. Above management discussed with the patient in detail length she understand and in agreement with the plan. Time spent 40 minute. Time Attestation Total time managing care of this patient today: 40 mintues. Discharge Coordination Time (in mins): 40 min Quality: Safe Use of Opioids Does Pt have an Active Cancer Diagnosis on the Problem List?: No Quality: Stroke Does the patient have a stroke diagnosis?: No Physical Exam Vital Signs: Vital Signs: Last Vital Signs Temp 97.3 F 07/16/23 11:42 Pulse 72 07/16/23 11:42 Resp 18 07/16/23 11:42 BP 109/62 07/16/23 11:42 Pulse Ox 96 07/16/23 11:42 O2 Del Method Room Air 07/16/23 11:42 O2 Flow Rate 2 07/15/23 03:09 BMI result Body Mass Index 45.6 Appearance: Alert.? Oriented X3.? cvs: rrr, [id number] , no murmur res: clear to auscultation ,no rhonchii or wheezing abd: no rebound or guarding ,nt, bs present,ascitis improving. ext pulses present , no cyanosis . neuro: axo3 , nonfocal. DS: Data Data Completed and Pending Completed studies during hospitalization [Text1]: Procedures Drainage of Peritoneal Cavity, Percutaneous Approach (01/03/23) Pending studies at discharge: Pending at discharge 07/13/23 11:25 Cytology [PTH] Routine Labs on day of discharge: Laboratory Results - last 24 hr 07/16/23 05:49 Hold Purple Top SEE NOTE PT 17.4 H INR 1.4 H Sodium 142 Potassium 4.0 Chloride 104 Carbon Dioxide 29 Anion Gap 13 BUN 8 L Creatinine 0.70 Estim Creat Clear Calc 108.8 Estimated GFR > 60 Random Glucose 86 Calcium 9.6 D Preliminary micro results at discharge 07/13/23 11:06 Anaerobic Culture - Preliminary Peritoneal Fluid No growth to date. Imaging Chest x-ray: Radiologist's impression: ITS Impressions Abdomen/Pelvis CT 07/13/23 04:35 IMPRESSION: 1. Moderate volume ascites, new from 01/27/2023. 2. Redemonstrated fluid collection in the left retroperitoneum, similar to prior. 3. Trace right pleural effusion. Paracentesis Ultrasound 07/13/23 11:30 Impression: Ultrasound-guided paracentesis as described above. No immediate complications Discharge Plan Discharge Anticipated Discharge Date/Time: 07/16/23 11:23 Patient Disposition: Home Health Service Discharge Diagnosis: david ,hyponatremia ,ascitis Referrals: [facility] [Outside] - 1 Week Kristin Todd MD [Primary Care Provider] - 1 Week Discharge Medications: New spironolactone 25 mg Tablet 25 mg PO BID@0900,1800 Qty: 120 0RF Protocol: Hold for SBP< HOLD for SBP < : 90 omeprazole 20 mg capsule,delayed release(DR/EC) 20 mg PO DAILY Qty: 30 0RF docusate sodium [Colace] 100 mg capsule 100 mg PO DAILY PRN (Reason: constipation) Qty: 30 0RF polyethylene glycol 3350 [Miralax] 17 gram/dose powder 17 g PO DAILY PRN (Reason: constipation) Qty: 119 0RF Continued citalopram 40 mg tablet 40 mg PO QAM zolpidem 10 mg tablet 10 mg PO BEDTIME PRN (Reason: Insomnia) loratadine 10 mg tablet 10 mg PO DAILY hydroxyzine pamoate 25 mg capsule 25 mg PO TID PRN (Reason: Anxiety) bupropion HCl 200 mg tablet sustained-release 12 hr 200 mg PO BID risperidone microspheres [Risperdal Consta] 50 mg/2 mL suspension,extended rel recon 50 mg IM Q2W Rx Instructions: ON FRIDAYS ondansetron HCl 4 mg tablet 4 mg PO BID warfarin 5 mg tablet 10 mg PO DAILY triamcinolone acetonide 0.025 % ointment 1 appl topical BID PRN (Reason: Rash) benztropine 0.5 mg tablet 0.5 mg PO BID PRN (Reason: dystonias) warfarin 4 mg tablet 4 - 8 mg PO DAILY warfarin 6 mg tablet 6 mg PO DAILY nystatin 100,000 unit/gram powder 1 appl topical BID Changed furosemide 40 mg tablet 20 mg PO DAILY Qty: 30 0RF Discharge Orders: Discharge Order (Routine); Ordered 07/16/23 Ordered By: Celestine Henderson Diet: Advance to usual diet Activity on Discharge: As tolerated Stand Alone Forms: Patient Portal Discharge page Print Language: Icelandic Other Ambulatory Orders: Basic Metabolic Panel (Routine) Timeframe: 1 Week Facility: [facility] - Location: Laboratory Ordered By: Celestine Henderson Prothrombin Time INR (Routine) Timeframe: 1 Week Facility: [facility] - Location: Laboratory Ordered By: Celestine Henderson Care Plan Goals: Patient was admitted with diarrhea and borderline blood pressure which started due to colonoscopy prep, DAVID, hyponatremia, ascites: Patient was started on IV fluids, had paracentesis for ascites:With hydration, albumin- her DAVID and hyponatremia seems to be improved, status post paracentesis and less likely SBP. Patient seems to be improved significantly: Patient was started on low-dose Lasix and spironolactone-renal function so far seems fine. Monitor BMP outpatient. Further management of her ascites, liver disease, possible colonoscopy outpatient with her GI. hx of dvt: inr subtherpaeutic ,given extra warfarin 5 mg extra dose today , moniter inr outpatient , need outpatient d/w with GI about colonoscopy appointment before holding warfarin in future . constipation : had bm today , added colace and miralex prn. PT saw the patient recommended home pt. Health Concerns: As above. Plan of Treatment: d/w Gi-lasix adjusted to 20 mg daily(due to recent david) ,added spirnolactone . moniter bmp due to above moniter inr -outpatient . Assessment: As above.
--- NOTE | 2023-07-16 11:47 | P.F2F_ITS ---
Service Date Service Date: 07/16/23 Encounter Date of encounter: 07/16/23 Encounter: Ascites, DAVID, hyponatremia Reasons for Services Signs and symptoms assessed: Monitor for any new sign of ascites worsening Reason for physical therapy: home safety and mobility, therapeutic exercises, restore joint function, gait/transfer training, assess need for DME, ADL training, energy conservation and other MD Overseeing Care: Kristin Todd Homebound: Leaving the home is medically contraindicated at this time without the asist of a device and/or another person due th the listed conditions above and below. Reason homebound: weakness related to hospital stay Homebound supporting statement: Patient is generalized weak post hospitlisation stay need help for home PT Certification: Based on the above findings, I certify that this patient is confined to the home and needs intermittent penitentiary care, physical therapy and/or speech therapy, or continues to need occupational therapy. The patient is under my care, and I have initiated the establishment of the plan of care. The patient will be followed by a physician who will periodically review the plan of care. Time Spent With Patient Time: Total time managing care of this patient today ____ minutes.
--- NOTE | 2023-07-16 12:06 | MHC.CM.PN ---
PATIENT IS DC HOME WITH RESUMPTION OF [facility].
[2023-07-18 08:31] LABS: Albumin Peritoneal Fluid 0.6
[2023-07-18 08:32] LABS: Total Protein Peritoneal Fluid 0.7
[2023-07-18 08:33] LABS: LDH Peritoneal Fluid 40
[2023-07-18 08:35] LABS: Glucose Peritoneal Fluid 118
[2023-07-18 08:36] LABS: Amylase Peritoneal Fluid 27
== END 2023-07-16 14:34 | disposition home health service (06) ==
LOC: HO.ED 07-13 03:59 → HO.EDOVER 07-13 06:25 → HO.S3 07-13 20:35
PROVIDERS: Admitting Provider Internal Medicine; Emergency Provider Internal Medicine; PCP Pediatrics; Visit Provider Internal Medicine
DX: K74.69 Other cirrhosis of liver (principal); K76.7 Hepatorenal syndrome; N17.9 Acute kidney failure, unspecified; R18.8 Other ascites; E87.1 Hypo-osmolality and hyponatremia; K75.81 Nonalcoholic steatohepatitis (NASH); F20.9 Schizophrenia, unspecified; E86.0 Dehydration; F32.A Depression, unspecified; F41.9 Anxiety disorder, unspecified; K59.00 Constipation, unspecified; E66.01 Morbid (severe) obesity due to excess calories; R79.1 Abnormal coagulation profile; K21.9 Gastro-esophageal reflux disease without esophagitis; E11.9 Type 2 diabetes mellitus without complications; Z86.718 Personal history of other venous thrombosis and embolism; Z68.42 Body mass index [BMI] 45.0-49.9, adult; Z79.01 Long term (current) use of anticoagulants; Z79.899 Other long term (current) drug therapy
CPT/HCPCS: 36415; 49083; 74176; 80048; 80053; 80076; 81001; 82042; 82150; 82248; 82533; 82945; 83615; 83690; 84157; 85025; 85610; 87070; 87073; 87086; 87147; 87205; 88112; 88305; 88341; 88342; 89051; 99285; C1758; C9113; J2405; J7120; P9047

== ENCOUNTER 2023-07-13 06:02 | Outpatient (BNV) | payer MEDICAID, SELFPAY | END 2023-07-13 10:55 | PROVIDERS: Admitting Provider Internal Medicine; Emergency Provider Internal Medicine; PCP Pediatrics; Visit Provider Physician Assistant Surgical | DX: R18.8 Other ascites (principal) | CPT/HCPCS: 49083 ==

== ENCOUNTER → 2023-07-13 06:02 | Outpatient (BNV) | payer MEDICAID, SELFPAY | PROVIDERS: Admitting Provider Internal Medicine; Emergency Provider Internal Medicine; PCP Pediatrics; Visit Provider Internal Medicine Nephrology | DX: N17.9 Acute kidney failure, unspecified (principal); E87.1 Hypo-osmolality and hyponatremia; R10.9 Unspecified abdominal pain | CPT/HCPCS: 99223; 99232 ==

== ENCOUNTER → 2023-07-13 06:02 | Outpatient (BNV) | payer MEDICAID, SELFPAY | PROVIDERS: Admitting Provider Internal Medicine; Emergency Provider Internal Medicine; PCP Pediatrics; Visit Provider Internal Medicine | DX: E87.1 Hypo-osmolality and hyponatremia (principal); N17.9 Acute kidney failure, unspecified; K75.81 Nonalcoholic steatohepatitis (NASH); K74.60 Unspecified cirrhosis of liver | CPT/HCPCS: 99223; 99232; 99239; 99499; G0180 ==

== ENCOUNTER → 2023-07-13 06:02 | Outpatient (BNV) | payer MEDICAID, SELFPAY | PROVIDERS: Admitting Provider Internal Medicine; Emergency Provider Internal Medicine; PCP Pediatrics; Visit Provider Internal Medicine | DX: R10.9 Unspecified abdominal pain (principal); N17.9 Acute kidney failure, unspecified; K75.81 Nonalcoholic steatohepatitis (NASH); K74.60 Unspecified cirrhosis of liver; R18.8 Other ascites | CPT/HCPCS: 99223; 99232 ==

== ENCOUNTER 2023-07-27 12:00 | Outpatient (REF) | payer MEDICAID, SELFPAY ==
[2023-07-27 15:06] LABS: Anion Gap 17 (12-20); Blood Urea Nitrogen 12 mg/dL (9-16); Calcium 9.8 mg/dL (8.4-10.2); Carbon Dioxide 26 mmol/L (22-29); Chloride 102 mmol/L (96-108); Estimated Glomerular Filt Rate > 60; Glucose Random 71 mg/dL (60-115); Potassium 3.9 mmol/L (3.3-5.1); Sodium 141 mmol/L (135-145)
== END 2023-07-27 12:01 | disposition home or self-care (01) ==
LOC: HO.CHCLDS 12:00
PROVIDERS: Visit Provider Pediatrics
DX: I89.0 Lymphedema, not elsewhere classified (principal); N13.9 Obstructive and reflux uropathy, unspecified
CPT/HCPCS: 36415; 80048

== ENCOUNTER 2023-08-05 14:45 | Inpatient (IN) | payer MEDICAID, SELFPAY ==
--- NOTE | ~2023-08-05 | XR_ITS ---
EXAMINATION: XR CHEST CLINICAL INFORMATION: Shortness of breath COMPARISON: Chest x-ray March 10, 2023 TECHNIQUE: Frontal view of the chest was obtained. FINDINGS: Lungs are clear. No pulmonary vascular congestion. There is no pleural effusion. The heart size is normal. The cardiac and mediastinal contours are normal. There are multilevel degenerative changes of dorsal spine. XR/XR chest 1V IMPRESSION: Unremarkable examination.
--- NOTE | ~2023-08-05 | XR_ITS ---
EXAMINATION: XR CHEST CLINICAL INFORMATION: Hypoxia COMPARISON: Chest radiograph from previous day. TECHNIQUE: Frontal view of the chest was obtained. FINDINGS: Redemonstrated low lung volumes with slightly increased streaky bibasilar opacities. No pleural effusion or pneumothorax. Cardiomediastinal silhouette is unchanged. XR/XR chest 1V IMPRESSION: Low lung volumes with slightly increased streaky bibasilar opacities, likely atelectasis.
--- NOTE | ~2023-08-05 | US_ITS ---
EXAMINATION: US VENOUS ULTRASOUND WITH DOPPLER LOWER EXTREMITY, RIGHT CLINICAL INFORMATION: Pain COMPARISON: None available. TECHNIQUE: Ultrasound of the deep veins is performed from the hip to the calf with compression sonography and color and pulse Doppler assessment. Spectral analysis with color-flow imaging is performed. FINDINGS: There is normal venous compression and respiratory variation and augmented flow. The visualized common femoral vein, superficial femoral vein, profunda femoral vein, popliteal vein, and the trifurcation region shows no evidence of deep venous thrombosis. There is no significant popliteal fossa cyst. Peroneal vein not visualized. US/US venous duplex LE RT IMPRESSION: No DVT demonstrated in the right lower extremity. Exam limited due to patient's body habitus, peroneal vein not visualized. If the patient's symptoms persist, followup ultrasound in 5 days 7 days might be of value to exclude proximal propagation from a non-visualized calf vein.
--- NOTE | ~2023-08-05 | CT_ITS ---
EXAMINATION: CT abdomen pelvis wo IV con CLINICAL INFORMATION: Reason for Exam abdominal pain and DAVID COMPARISON: Prior CT 07/13/2023 TECHNIQUE: Multidetector volumetric imaging was performed from the superior aspect of the liver through the pubic symphysis noncontrasted CT Sagittal and coronal reformatted images were obtained on the technologist's workstation. This CT examination was performed using dose optimization techniques as appropriate, variously including the following: *Automated exposure control *Adjustment of mA and/or kV according to patient size (this includes techniques or standardized protocols for targeted exams where dose is matched to indication/reason for exam; i.e. extremities or head) *Use of iterative reconstruction technique DLP: 1063 mGy-cm FINDINGS: LOWER THORAX: Small right pleural effusion, lung bases otherwise are clear. HEPATOBILIARY: Evaluation of the liver is limited due to lack of contrast. Nodular surface raising concern for possible liver cirrhosis. GALLBLADDER: Gallbladder unremarkable. SPLEEN: Spleen is normal in size. PANCREAS: Small atrophic pancreas. STOMACH AND GASTROINTESTINAL TRACT: Stomach is grossly unremarkable. Excess amount of stool in the colon suggests possible constipation. No evidence of bowel obstruction. Appendix not visualized obscured by ascites. ADRENALS: No adrenal nodules. KIDNEYS/URETERS: No hydronephrosis, stones or solid mass lesions. URINARY BLADDER: Partially decompressed. PELVIC VISCERA: There is a free fluid in the dependent portion of the pelvis. PERITONEUM: There is ascites. There is no free air. LYMPH NODES: No lymphadenopathy. VASCULAR:Mild aortic vascular calcification. Engorgement of the portal vein and probably splenic perinephric veins raising concern for portal hypertension/portosystemic shunting. BONES, ABDOMINAL WALL AND SOFT TISSUES: 7. Postsurgical changes anterior abdominal wall hernia repair. CT/CT abdomen pelvis wo IV con IMPRESSION: 1. Exam limited due to lack of contrast. 2. There is ascites. 3. Nodular surface of the liver raising concern for possible liver cirrhosis. 4. Engorgement of the portal vein and splenic perinephric veins raising concern for portal hypertension/portosystemic shunting. 5. Small right pleural effusion. 6. Excess amount of stool in the colon suggests possible constipation. 7. Atrophic pancreas.
[2023-08-05 14:51] VITALS: BP 119/73; PULSE 89; RESP 18; TEMP 36.6; O2SAT 96; BMI 44.6
--- NOTE | 2023-08-05 14:52 | ED.GENADULT ---
HPI - General Adult General Chief complaint: Abdominal Pain Stated complaint: abd inflammation, legs swollen Time Seen by Provider: 08/05/23 17:57 Source: patient, RN notes reviewed, old records reviewed and court interpreter Mode of arrival: ambulatory Limitations: language barrier History of Present Illness HPI narrative: 52-year-old female with past medical history significant for hepatorenal syndrome secondary to MALDONADO, chronic kidney disease, hyponatremia, morbid obesity presents for evaluation of abdominal pain, swollen legs and swollen abdomen. Patient reports that she 1st noticed her symptoms on Tuesday, 3 days ago She states that her abdomen has felt much more swollen compared to her baseline She states that her legs have been much more swollen compared to her baseline though she admits that they are chronically swollen She denies any increased leg pain She is on warfarin due to history of DVT The patient was admitted here about 3 weeks ago for similar complaints At that time she was found to have DAVID likely due to colonoscopy prep in the setting of furosemide usage The patient's furosemide was decreased from 40 mg daily to 20 mg daily upon discharge She reports being compliant with her medications Denies any fevers, chills Related Data Home Medications ?Medication ?Instructions ?Recorded ?Confirmed bupropion HCl 200 mg tablet,12 hr 200 mg PO BID depressive disorder 01/03/23 07/13/23 sustained-release citalopram 40 mg tablet 40 mg PO QAM depressive disorder 01/03/23 07/13/23 hydroxyzine pamoate 25 mg capsule 25 mg PO TID PRN Anxiety 01/03/23 07/13/23 loratadine 10 mg tablet 10 mg PO DAILY 01/03/23 07/13/23 ondansetron HCl 4 mg tablet 4 mg PO BID Nausea And Vomiting 01/03/23 07/13/23 risperidone microspheres 50 mg/2 50 mg IM Q2W 01/03/23 07/13/23 mL intramuscular susp,ext release (Risperdal Consta) zolpidem 10 mg tablet 10 mg PO BEDTIME PRN Insomnia 01/03/23 07/13/23 triamcinolone acetonide 0.025 % 1 appl topical BID PRN Rash 03/11/23 07/13/23 topical ointment warfarin 5 mg tablet 5 - 10 mg PO DAILY 03/11/23 07/13/23 benztropine 0.5 mg tablet 0.5 mg PO BID PRN dystonias 07/13/23 07/13/23 nystatin 100,000 unit/gram topical 1 appl topical BID 07/13/23 07/13/23 powder warfarin 4 mg tablet 4 - 8 mg PO DAILY 07/13/23 warfarin 6 mg tablet 6 mg PO DAILY 07/13/23 furosemide 40 mg tablet 40 mg PO DAILY 08/05/23 midodrine 10 mg tablet 10 mg PO TID 08/05/23 Previous Rx's ?Medication ?Instructions ?Recorded docusate sodium 100 mg capsule 100 mg PO DAILY PRN constipation 07/16/23 (Colace) #30 caps furosemide 40 mg tablet 20 mg (1/2 x 40 mg) PO DAILY #30 07/16/23 tabs omeprazole 20 mg capsule,delayed 20 mg PO DAILY #30 caps 07/16/23 release polyethylene glycol 3350 17 17 g PO DAILY PRN constipation 07/16/23 gram/dose oral powder (Miralax) #119 grams spironolactone 25 mg tablet 25 mg PO BID@0900,1800 #120 tabs 07/16/23 Allergies Allergy/AdvReac Type Severity Reaction Status Date / Time No Known Allergies Allergy Verified 08/05/23 14:55 [No Known Allergies*] Review of Systems Constitutional: Constitutional: Denies body ache(s), Denies chills and Denies fever(s) Eyes: Eyes: Denies blurry vision ENT: Denies sore throat Cardiovascular: Cardiovascular: Denies chest pain, Reports leg edema and Denies dyspnea Respiratory: Respiratory: Denies cough and Denies dyspnea Gastrointestinal: Gastrointestinal: Reports abdominal pain, Reports bloating, Denies diarrhea, Denies nausea and Denies vomiting Genitourinary: Genitourinary: Reports dysuria Musculoskeletal: Musculoskeletal: Denies back pain Integumentary/Breasts: Skin/Breast: Denies rash [facility] Past Medical History Medical History (Updated 08/05/23 @ 19:47 by Wily Valdovinos) Hyponatremia Cirrhosis of liver with ascites Acute kidney insufficiency UTI (urinary tract infection) Cervical cancer Lymphedema Cardiac arrest DVT (deep venous thrombosis) Social History Social History Household Members: Children Household Members Other:: Son, daughter Housing: Apartment Do you presently have visiting nurse or other home services: Yes ([facility] Tues and Fri, pt's son and brother are her lining mechanic) Alcohol intake: never Comment: DAUGHTER STAYING OVERNIGHT Patient Tobacco Use Status: Never used Tobacco Smoked in Last 30 Days: No e-Cigarette/Vaping Use: Never Used Use of substances other than those prescribed or required for medical reasons: No Advance Directives: Yes Advance Directives on File: Yes Advance Directives Date on File: 01/03/23 Nutrition Risks: No Nutritional Risk Patient : No service: No Physical Exam ED Vital Signs: Vital Signs - 24 hr 08/05/23 14:51 08/05/23 18:00 Temperature 97.9 F 98.1 F Pulse Rate 89 68 Respiratory Rate 18 28 H Blood Pressure 119/73 121/73 Pulse Oximetry 96 95 Oxygen Delivery Method Room Air Room Air BMI result Body Mass Index 44.6 Const General: comfortable, no acute distress, alert and awake Nutritional Appearance: well nourished and obese morbidly obese Orientation/consciousness: patient oriented x3 HENMT Head: Yes normocephalic and Yes atraumatic Eyes Eyelids: Yes eyelids normal Conjunctivae: conjunctivae normal Sclerae: sclerae normal Corneas: corneas normal Pupils: Equal, round and reactive pupils present EOM: EOMs intact bilaterally Neck Neck: Yes full ROM Resp Effort & Inspection: normal respiratory effort, able to speak in complete sentences and not labored Cardio Rate: regular rate Rhythm: regular rhythm GI Inspection: Yes distended Palpation (GI): Soft to palpation, not firm, Tenderness to palpation present (GI) (Tenderness mostly in the epigastric region and suprapubic region) in the epigastrum and suprapubicly; not in the RUQ, no guarding and not rigid Auscultation: normoactive bowel sounds Skin General skin exam: elasticity normal Neuro General: patient oriented x3 Cranial nerves: Yes Equal, round and reactive pupils present and Yes Bilaterally intact EOM present Cognition (Neuro): normal cognition Extrem Other: 3+ bilateral pitting edema to lower extremities Course Course Course Narrative: This is a rapid medical exam performed by Abdulaziz Whitehead NP: Additional HPI, ROS, PE not included below will be deferred to primary provider. Patient is a 52-year-old female with history of cirrhosis secondary to MALDONADO with ascites, cardiac arrest, DVT, hepatorenal syndrome, cervical CA, lymphedema presenting to the ED with complaint of abdominal pain, dysuria. Fever yesterday. Bilateral leg swelling. Plan: Labs, UA Medications Administered Generic Name Dose Route Start Last Admin Trade Name Freq PRN Reason Stop Dose Admin Ceftriaxone Sodium 1 gm/ 50 mls @ 100 mls/hr 08/05/23 20:00 08/05/23 21:23 Sodium Chloride IV Infused Q24H LAUREN Infusion Discontinued Medications Generic Name Dose Route Start Last Admin Trade Name Freq PRN Reason Stop Dose Admin Albumin Human 100 mls @ 100 mls/hr 08/05/23 19:30 08/05/23 21:34 Kedbumin 25 % IV 08/05/23 21:29 100 mls/hr Q1H LAUREN Administration Sodium Chloride 1,000 mls @ 999 mls/hr 08/05/23 19:30 08/05/23 19:47 Ns IV 08/05/23 20:30 999 mls/hr .Q1H1M LAUREN Administration Medical Decision Making Medical Decision Making [facility] Narrative: 52-year-old female with complex past medical history presents for evaluation of abdominal and leg swelling. She had a similar presentation a few weeks ago and was admitted due to DAVID. The patient was noted to be hyponatremic to 130 which is decreased from 9 days ago when she was normal at 141. Her potassium is normal, the patient's renal function is again elevated with a creatinine of 2.45 which is increased from her most recent labs of 0.899 days ago. Patient's LFTs are within normal limits. BNP is within normal limits at 47. The patient is not hypoxic but was tachypneic after walking back to the ER bed from the waiting room. This patient is quite complicated, however given her hyponatremia and DAVID we will treat with IV fluids and albumin. The albumin is not to treat hypoalbuminemia but to increase oncotic pressure and help prevent 3rd spacing of the fluid. She will likely require diuresis later in her stay. I had initially ordered DVT scans, however the patient's INR was therapeutic at 2.9 and attempted to cancel the scan but 1 like was already scanned. I have a low suspicion for acute DVT. The patient does have a history of ascites, low suspicion for SBP as she is afebrile, no leukocytosis and appears quite comfortable. Differential Diagnosis Differential Diagnoses: The differential diagnosis associated with the presentation includes Hepatorenal syndrome Fluid overload Leg edema DVT less likely Admission/Observation Consideration of admission/observation: Escalation of care including admission/observation considered Patient be admitted due to hepatorenal syndrome and DAVID Consult Healthcare Provider Management of the patient was discussed with: Hospitalist (Dr. Loyd will admit the patient) Lab Data MDM Lab Attestation statement: I reviewed the patient's lab results. See above 08/05/23 15:15 08/05/23 15:15 Labs: Lab Results 08/05/23 Range/Units 15:15 WBC 4.8 (4.8-10.8) X10*3/uL RBC 4.74 (4.20-5.50) X10*6/uL Hgb 13.4 (12.0-16.0) g/dl Hct 39.8 (37.0-47.0) % MCV 84.0 (80.0-98.0) fL MCH 28.3 (27.0-33.0) pg MCHC 33.7 (31.0-35.0) g/dl RDW 14.0 (11.0-16.0) % Plt Count 254 (160-400) X10*3/uL MPV 10.3 (9.4-12.3) fL Immature Gran % (Auto) 0.2 (0.0-0.4) % Neut % (Auto) 77.3 H (45-73) % Lymph % (Auto) 15.6 L (20-40) % [place] % (Auto) 6.1 (2-11) % Eos % (Auto) 0.6 (0-4) % Baso % (Auto) 0.2 (0-2) % Lymph # (Auto) 0.7 L (1.2-4.9) X10*3/uL [place] # (Auto) 0.3 (0.1-1.2) X10*3/uL Eos # (Auto) 0.0 (0.0-0.4) X10*3/uL Baso # (Auto) 0.0 (0.0-0.2) X10*3/uL Abs Immat Gran (auto) 0.01 (0.00-0.03) X10*3/uL Absolute Neuts (auto) 3.7 (2.0-8.3) x10*3/uL Absolute Nucleated RBC 0.000 (0.0-0.012) X10*3/uL Nucleated RBC % (auto) 0.0 (0.0-0.2) /100WBC PT 35.2 H D (11.1-13.3) SEC INR 2.9 H (0.9-1.1) APTT 42.3 H (26.0-36.8) SEC Sodium 130 L (135-145) mmol/L Potassium 4.1 (3.3-5.1) mmol/L Chloride 96 (96-108) mmol/L Carbon Dioxide 22 (22-29) mmol/L Anion Gap 16 (12-20) BUN 22 H (9-16) mg/dL Creatinine 2.45 H (0.5-1.4) mg/dL Estim Creat Clear Calc 31.8 Estimated GFR 21 Random Glucose 91 (60-115) mg/dL Calcium 9.3 (8.4-10.2) mg/dL Total Bilirubin 0.4 (0.0-1.0) mg/dL AST 11 (5-31) U/L ALT 11 (0-31) U/L Alkaline Phosphatase 104 (39-117) U/L Ammonia 31 (13-55) umol/L B-Natriuretic Peptide 47 (<100) pg/mL Total Protein 7.6 (6.5-8.0) g/dL Albumin 4.5 (3.5-5.0) g/dL Amylase 36 (28-100) U/L Lipase 14 (8-78) U/L Independent Interpretation I performed an independent interpretation of an: Plain X-Ray and CT Scan ([id number] ascites. Some constipation noted. No evidence of obstructive uropathy) Interpretation: No focal infiltrates or significant pleural effusions Radiology Impression Discussion of test interpretation with radiology: I have reviewed the radiologist's reading. Radiologist Impression: XR/XR chest 1V IMPRESSION: Unremarkable examination. CT/CT abdomen pelvis wo IV con IMPRESSION: 1. Exam limited due to lack of contrast. 2. There is ascites. 3. Nodular surface of the liver raising concern for possible liver cirrhosis. 4. Engorgement of the portal vein and splenic perinephric veins raising concern for portal hypertension/portosystemic shunting. 5. Small right pleural effusion. 6. Excess amount of stool in the colon suggests possible constipation. 7. Atrophic pancreas. Discharge Plan Discharge Clinical Impression: DAVID (acute kidney injury), Hepatorenal syndrome Patient Disposition: Admitted As Inpatient
[2023-08-05 15:24] LABS: MANUAL DIFF FLAG NO
[2023-08-05 15:28] LABS: Basophils Percent Auto 0.2 % (0-2); Eosinophils Percent Auto 0.6 % (0-4); Hematocrit 39.8 % (37.0-47.0); Hemoglobin 13.4 g/dl (12.0-16.0); Imm Gran Abs Auto 0.01 X10*3/uL (0.00-0.03); Imm Gran Pct Auto 0.2 % (0.0-0.4); Lymphocytes Absolute Auto 0.7 X10*3/uL (1.2-4.9); Lymphocytes Percent Auto 15.6 % (20-40); Mean Corpuscular HGB Conc 33.7 g/dl (31.0-35.0); Mean Corpuscular Hemoglobin 28.3 pg (27.0-33.0); Mean Platelet Volume 10.3 fL (9.4-12.3); Monocytes Absolute Auto 0.3 X10*3/uL (0.1-1.2); Monocytes Percent Auto 6.1 % (2-11); Neutrophils Absolute Auto 3.7 x10*3/uL (2.0-8.3); Neutrophils Percent Auto 77.3 % (45-73); Platelet Count 254 X10*3/uL (160-400); Red Blood Count 4.74 X10*6/uL (4.20-5.50); White Blood Count 4.8 X10*3/uL (4.8-10.8)
[2023-08-05 15:33] LABS: Ammonia 31 umol/L (13-55); Amylase 36 U/L (28-100)
[2023-08-05 15:34] LABS: INTERNATIONAL NORM RATIO 2.9 (0.9-1.1); Prothrombin Time 35.2 SEC (11.1-13.3)
[2023-08-05 15:38] LABS: Partial Thromboplastin Time 42.3 SEC (26.0-36.8)
[2023-08-05 15:42] LABS: Alanine Aminotransferase 11 U/L (0-31); Albumin Level 4.5 g/dL (3.5-5.0); Alkaline Phosphatase 104 U/L (39-117); Anion Gap 16 (12-20); Aspartate Amino Transferase 11 U/L (5-31); Bilirubin Total 0.4 mg/dL (0.0-1.0); Blood Urea Nitrogen 22 mg/dL (9-16); Calcium 9.3 mg/dL (8.4-10.2); Carbon Dioxide 22 mmol/L (22-29); Chloride 96 mmol/L (96-108); Creatinine Clr Calc Pharmacy 31.8; Estimated Glomerular Filt Rate 21; Glucose Random 91 mg/dL (60-115); Lipase 14 U/L (8-78); Potassium 4.1 mmol/L (3.3-5.1); Sodium 130 mmol/L (135-145); Total Protein 7.6 g/dL (6.5-8.0)
[2023-08-05 15:48] LABS: B Type Natriuretic Peptide 47 pg/mL (<100)
[2023-08-05 18:00] VITALS: BP 121/73; PULSE 68; RESP 28; TEMP 36.7; O2SAT 95
[2023-08-05] MEDS: 0.9 % Sodium Chloride 1,000 ML 999 ML IV (19:47)
[2023-08-05] MEDS: Albumin Human 25 % 100 ML IV ×2 (19:54→21:34)
[2023-08-05 20:04] LABS: Appearance Urine Clear; Color Urine Yellow; Glucose Urine UA Negative (Negative); Leukocyte Esterase Urine Negative (Negative); Nitrite Urine Negative (Negative); PH 5.5 (5.0-9.0); Specific Gravity - Urine <= 1.005 (1.005-1.025); UMIC TRIGGER UACC YES; Urine Blood Small (1+) (Negative); Urine Ketones Negative (Negative); Urine Protein Negative (Neg-Trace)
[2023-08-05 20:15] LABS: Bacteria Urine None Seen (None Seen); Hyaline Casts Urine 0-2 /LPF (0-2); RBC Urine 0-2 /HPF (0-2); Squamous Epithelial Cell Urine 0-2 /HPF (0-2); WBC Urine 0-5 /HPF (0-5)
[2023-08-05] MEDS: cefTRIAXone sodium 1 GM in 0.9 % Sodium Chloride 50 ML IV (20:53)
--- NOTE | 2023-08-05 20:56 | PC.NURSE ---
this rn assumed care of pt, pt resting in stretcher, a&ox4, respirations even and unlabored. pt medicated per may. per pt does not need blood cultures at this time.
--- NOTE | 2023-08-05 21:25 | PM.IMHP ---
History of Present Illness Date of Service: 08/05/23 Attending physician on admission: Javon Loyd Chief Complaint: Abdominal pain and swelling Pt is a 52-year-old female with a PMH significant for liver cirrhosis due to MALDONADO, cervical cancer s/p pelvic radiation, hx of lower extremity DVT on warfarin, diet controlled type 2 diabetes, GERD, and schizophrenia who presents to the ED with?worsening abdominal pain and swelling over the past few days. Patient also complains of increased swelling and pain in her lower extremities, especially left leg over the same period. Patient states has been eating and drinking normally, though notes she feels abdominal pain when urinating. Patient presented to the hospital on 07/12-07/15 with similar complaints. DAVID, ascites, and hyponatremia thought likely due to colonoscopy prep. Upon discharge pt was started on spironolactone and home furosemide was reduced from 40 mg daily to 20 mg daily. Patient reports has been compliant with medications since discharge. Denies fever, chills, nausea, vomiting. No diarrhea. Denies chest pain/pressure, palpitations. Chronic shortness of breath, worse with going upstairs. In the ED pt was tachypneic up to 28, vitals otherwise WNL. Labs were significant for sodium 130, BUN 22, and creatinine 2.45. No leukocytosis. Stable H&H. CXR showed no acute cardiopulmonary disease. CT?of abdomen and pelvis found ascites, liver cirrhosis, engorgement of portal vein and splenic perinephric veins concerning for portal hypertension/portosystemic shunting, small right pleural effusion, excessive amount of stool in the colon suggestive of constipation, and atrophic pancreas. Venous duplex of right lower extremity found no DVT demonstrated, but exam limited due to patient's body habitus with peroneal vein not visualized. Patient was given IVF, albumin, and ceftriaxone. Pt was treated with IVF, ceftriaxone, and albumin. Pt will be admitted to the hospital for treatment further evaluation of DAVID likely secondary to hepatorenal syndrome in the setting of decompensated cirrhosis. Review of Systems Review of Systems: Worsening abdominal swelling and pain Worsening lower leg swelling and pain Chronic shortness of breath, especially with going upstairs Denies fever, chills, nausea, vomiting, diarrhea No chest pain/pressure, palpitations PMFSH Medical History Hyponatremia Cirrhosis of liver with ascites Acute kidney insufficiency UTI (urinary tract infection) Cervical cancer Lymphedema Cardiac arrest DVT (deep venous thrombosis) Social History Household Members: Children Household Members Other:: Son, daughter Housing: Apartment Do you presently have visiting nurse or other home services: Yes ([facility] Tues and Fri, pt's son and brother are her customer acquisition manager) Alcohol intake: never Comment: DAUGHTER STAYING OVERNIGHT Patient Tobacco Use Status: Never used Tobacco Smoked in Last 30 Days: No e-Cigarette/Vaping Use: Never Used Use of substances other than those prescribed or required for medical reasons: No Advance Directives: Yes Advance Directives on File: Yes Advance Directives Date on File: 01/03/23 Nutrition Risks: No Nutritional Risk Patient : No service: No Meds Allergies Allergy/AdvReac Type Severity Reaction Status Date / Time No Known Allergies Allergy Verified 08/05/23 14:55 [No Known Allergies*] Active Medications: Current Medications Acetaminophen (Acetaminophen 325 Mg Tablet) 650 mg PO Q6H PRN PRN Reason: Pain, Mild (Pain Scale 1-3) Albumin Human (Kedbumin 25 %) 100 mls @ 100 mls/hr IV Q1H [facility] Stop: 08/05/23 21:29 Last Admin: 08/05/23 19:54 Dose: 100 mls/hr Ceftriaxone Sodium 1 gm/ (Sodium Chloride) 50 mls @ 100 mls/hr IV Q24H [facility] Last Admin: 08/05/23 20:53 Dose: 100 mls/hr Melatonin (Melatonin 3 Mg Tablet) 6 mg PO BEDTIME PRN PRN Reason: Insomnia Ondansetron HCl (Ondansetron Hcl 4 Mg/2 Ml Vial) 4 mg IVPUSH Q8H PRN PRN Reason: Nausea and Vomiting Sodium Chloride (0.9 % Sodium Chloride Flush 3 Ml Syringe) [facility] Medications ?Medication ?Instructions ?Recorded ?Confirmed ?Last Taken ?Type bupropion HCl 200 mg tablet,12 hr 200 mg PO BID depressive disorder 01/03/23 07/13/23 07/12/23 History sustained-release citalopram 40 mg tablet 40 mg PO QAM depressive disorder 01/03/23 07/13/23 07/12/23 History hydroxyzine pamoate 25 mg capsule 25 mg PO TID PRN Anxiety 01/03/23 07/13/23 Unknown History loratadine 10 mg tablet 10 mg PO DAILY 01/03/23 07/13/23 07/12/23 History ondansetron HCl 4 mg tablet 4 mg PO BID Nausea And Vomiting 01/03/23 07/13/23 07/12/23 History risperidone microspheres 50 mg/2 50 mg IM Q2W 01/03/23 07/13/23 07/01/23 History mL intramuscular susp,ext release (Risperdal Consta) zolpidem 10 mg tablet 10 mg PO BEDTIME PRN Insomnia 01/03/23 07/13/23 07/12/23 History triamcinolone acetonide 0.025 % 1 appl topical BID PRN Rash 03/11/23 07/13/23 Unknown History topical ointment warfarin 5 mg tablet 5 - 10 mg PO DAILY 03/11/23 07/13/23 07/12/23 History benztropine 0.5 mg tablet 0.5 mg PO BID PRN dystonias 07/13/23 07/13/23 Unknown History nystatin 100,000 unit/gram topical 1 appl topical BID 07/13/23 07/13/23 07/12/23 History powder warfarin 4 mg tablet 4 - 8 mg PO DAILY 07/13/23 Unknown History warfarin 6 mg tablet 6 mg PO DAILY 07/13/23 Unknown History furosemide 40 mg tablet 40 mg PO DAILY 08/05/23 Unknown History midodrine 10 mg tablet 10 mg PO TID 08/05/23 Unknown History Physical Exam Vital Signs and Narrative: Vital Signs: Last Vital Signs Temp 98.1 F 08/05/23 18:00 Pulse 68 08/05/23 18:00 Resp 28 H 08/05/23 18:00 BP 121/73 08/05/23 18:00 Pulse Ox 95 08/05/23 18:00 O2 Del Method Room Air 08/05/23 18:00 BMI result Body Mass Index 44.6 Constitutional: Alert, in no acute distress. Mental Status: Oriented to person, place and time. Eyes: Pupils are equal, round, and reactive to light. Ear, Nose, and Throat: Oropharynx clear, mucous membranes moist. Ears and nose without deformities. Trachea midline. Respiratory: Clear to auscultation bilaterally. No wheezing, rales, or rhonchi. Cardiovascular: S1, S2 regular. No murmurs, rubs, or gallops. Gastrointestinal: Abdomen firm, distended, with diffuse abd tenderness, especially epigastric and LUQ. Normal bowel sounds. Neurologic: Cranial nerves II-XII are grossly intact bilaterally. No focal neurological deficits. Moves all extremities spontaneously. Skin: Warm, dry. Extremities: Chronic lymphedema as pictured below. Psychiatric: Normal mood and affect. Results Labs 08/05/23 15:15 08/05/23 15:15 Labs: Laboratory Results - last 24 hr 08/05/23 08/05/23 15:15 19:57 MCV 84.0 MCH 28.3 MCHC 33.7 RDW 14.0 Plt Count 254 MPV 10.3 Immature Gran % (Auto) 0.2 Neut % (Auto) 77.3 H Lymph % (Auto) 15.6 L [place] % (Auto) 6.1 Eos % (Auto) 0.6 Baso % (Auto) 0.2 Lymph # (Auto) 0.7 L [place] # (Auto) 0.3 Eos # (Auto) 0.0 Baso # (Auto) 0.0 Abs Immat Gran (auto) 0.01 Absolute Neuts (auto) 3.7 Absolute Nucleated RBC 0.000 Nucleated RBC % (auto) 0.0 PT 35.2 H D INR 2.9 H APTT 42.3 H Anion Gap 16 Estim Creat Clear Calc 31.8 Estimated GFR 21 Random Glucose 91 Calcium 9.3 Total Bilirubin 0.4 AST 11 ALT 11 Alkaline Phosphatase 104 Ammonia 31 B-Natriuretic Peptide 47 Total Protein 7.6 Albumin 4.5 Amylase 36 Lipase 14 Urine Color Yellow Urine Appearance Clear Urine pH 5.5 Ur Specific [place] <= 1.005 Urine Protein Negative Urine Glucose (UA) Negative Urine Ketones Negative Urine Blood Small (1+) H Urine Nitrite Negative Ur Leukocyte Esterase Negative Urine RBC 0-2 Urine WBC 0-5 Ur Squamous Epith Cells 0-2 Urine Bacteria None Seen Hyaline Casts 0-2 Imaging Radiologist's Impressions: Impressions Abdomen/Pelvis CT 08/05/23 18:23 IMPRESSION: 1. Exam limited due to lack of contrast. 2. There is ascites. 3. Nodular surface of the liver raising concern for possible liver cirrhosis. 4. Engorgement of the portal vein and splenic perinephric veins raising concern for portal hypertension/portosystemic shunting. 5. Small right pleural effusion. 6. Excess amount of stool in the colon suggests possible constipation. 7. Atrophic pancreas. Chest X-Ray 08/05/23 18:23 IMPRESSION: Unremarkable examination. Venous Duplex 08/05/23 18:29 IMPRESSION: No DVT demonstrated in the right lower extremity. Exam limited due to patient's body habitus, peroneal vein not visualized. If the patient's symptoms persist, followup ultrasound in 5 days 7 days might be of value to exclude proximal propagation from a non-visualized calf vein. Assessment and Plan (1) DAVID (acute kidney injury): Status: Acute Plan Pt is a 52-year-old female with a PMH significant for liver cirrhosis due to MALDONADO, cervical cancer s/p pelvic radiation, hx of lower extremity DVT on warfarin, diet controlled type 2 diabetes, GERD, and schizophrenia who presents to the ED with?worsening abdominal pain and swelling over the past few days. Pt will be admitted to the hospital for treatment further evaluation of DAVID likely secondary to hepatorenal syndrome in the setting of decompensated cirrhosis. Abdominal pain and swelling In the setting of decompensated cirrhosis Pt recevied albumin in the ED Will schedule paracentesis Will empirically cover for SBP with ceftriaxone, started 08/05/2023 Analgesics for pain management Follow paracentesis cultures DAVID Creatinine 2.45 at time of presentation, elevated from 0.89 on 07/27/2023 Likely multifactorial: secondary to hepatorenal syndrome in the setting of decompensated cirrhosis and diuretic use Patient received IVF in the ED Will hold diuretics Nephrology consult Hyponatremia Sodium 130 at time of presentation In the setting of above combined with diuretic use Treat as above Monitor BNP Hx of DVT Continue warfarin INR therapeutic at 2.9 GERD PPI Mood disorder Continue home mood stabilizers Full Code Attending:?Dr. Loyd DVT Prophylaxis: On Warfarin Pt will require a hospitalization of at least two nights for treatment of?DAVID in setting of likely hepatorenal syndrome secondary to decompensated cirrhosis. Patient will require hospitalization for close monitoring of labs, scheduled paracentesis, empiric IV antibiotics, and specialist consultation with Nephrology. Quality Stroke Does the patient have a stroke diagnosis?: No VTE Prior VTE?: No VTE Risk Level:: Medical - moderate - high VTE Device Contraindication: Treatment Not Indicated VTE Drug Contraindication: N/A - Med Ordered
[2023-08-05 21:36] VITALS: BP 124/75; PULSE 70; RESP 20; TEMP 36.8; O2SAT 97
[2023-08-05 22:45] VITALS: BP 114/69; PULSE 73; RESP 22; O2SAT 98
--- NOTE | 2023-08-05 23:00 | PC.NURSE ---
pt ambulated to the bathroom with steady gait, this rn noted pt to have bilateral lower extremity edema.
[2023-08-06 00:35] VITALS: BMI 44.8
[2023-08-06 00:37] VITALS: BP 116/72; PULSE 79; RESP 16; TEMP 36.1; O2SAT 98
[2023-08-06] MEDS: 0.9 % Sodium Chloride Flush 3 ML SYRINGE IVFLUSH ×3 (00:58→16:25)
[2023-08-06] MEDS: Acetaminophen 325 MG TABLET 650 MG PO ×3 (01:59→17:39)
[2023-08-06 03:44] VITALS: BP 111/60; PULSE 76; RESP 16; TEMP 36.2; O2SAT 95
[2023-08-06 06:51] LABS: MANUAL DIFF FLAG NO
[2023-08-06 06:59] LABS: Basophils Percent Auto 0.7 % (0-2); Eosinophils Absolute Auto 0.1 X10*3/uL (0.0-0.4); Eosinophils Percent Auto 1.7 % (0-4); Hematocrit 36.6 % (37.0-47.0); Hemoglobin 12.2 g/dl (12.0-16.0); Imm Gran Abs Auto 0.01 X10*3/uL (0.00-0.03); Imm Gran Pct Auto 0.3 % (0.0-0.4); Lymphocytes Absolute Auto 0.7 X10*3/uL (1.2-4.9); Lymphocytes Percent Auto 22.2 % (20-40); Mean Corpuscular HGB Conc 33.3 g/dl (31.0-35.0); Mean Corpuscular Volume 83.9 fL (80.0-98.0); Mean Platelet Volume 10.9 fL (9.4-12.3); Monocytes Absolute Auto 0.4 X10*3/uL (0.1-1.2); Monocytes Percent Auto 12.9 % (2-11); Neutrophils Absolute Auto 1.9 x10*3/uL (2.0-8.3); Neutrophils Percent Auto 62.2 % (45-73); Platelet Count 226 X10*3/uL (160-400); Red Blood Count 4.36 X10*6/uL (4.20-5.50)
[2023-08-06 07:13] LABS: Anion Gap 17 (12-20); Blood Urea Nitrogen 25 mg/dL (9-16); Calcium 8.7 mg/dL (8.4-10.2); Carbon Dioxide 20 mmol/L (22-29); Chloride 99 mmol/L (96-108); Creatinine Clr Calc Pharmacy 26.7; Estimated Glomerular Filt Rate 17; Glucose Random 78 mg/dL (60-115); Potassium 3.9 mmol/L (3.3-5.1); Sodium 132 mmol/L (135-145)
[2023-08-06 07:57] VITALS: BP 117/66; PULSE 83; RESP 18; TEMP 36.1; O2SAT 95
[2023-08-06] MEDS: Midodrine HCl 10 MG TABLET PO ×3 (08:29→16:24)
[2023-08-06] MEDS: Octreotide Acetate 100 MCG/ML AMPUL SUBCUT ×2 (08:30→16:24)
[2023-08-06] MEDS: Albumin Human 25 % 100 ML IV ×2 (08:30→09:34)
--- NOTE | 2023-08-06 08:58 | PHA.MEDREC ---
Pharmacy Consult ? Medication Reconciliation Pharmacy has completed the medication reconciliation. confirmed medications with patient through an performance reporter. She reports last dose of warfarin was yesterday 8mg. Her VNA adjusts her warfarin based on her INR every visit. She also had the risperidone consta injection yesterday as well. She reports that she stopped taking midodrine, omeprazole, and never started using docusate. When asked about the furosemide she kept saying 20mg in the morning and 25mg in the afternoon and said this same thing when asked about spironolactone. I asked if she cut her furosemide in half and she said no. I asked if it was 20mg or 40mg and she said 40.
--- NOTE | 2023-08-06 09:00 | HO.PM.IMPN ---
Subjective Subjective Date of Service: 08/06/23 Interval History: abd pain Physical Exam Vital Signs: Vital Signs: Last Vital Signs Temp 97.0 F 08/06/23 07:57 Pulse 83 08/06/23 07:57 Resp 18 08/06/23 07:57 BP 117/66 08/06/23 07:57 Pulse Ox 95 08/06/23 07:57 O2 Del Method Room Air 08/06/23 07:57 BMI result Body Mass Index 44.8 General: AO X 3, no acute distress Resp: CTA bilateral, no accessory muscles used CVS: S1,S2,RRR, 3 + bialteral edema GI: soft, tender, distended Neuro: motor grossly intact, alert Psych: appropriate affect, appropriate insight Objective Data Active Medications Acetaminophen (Acetaminophen 325 Mg Tablet) 650 mg PO Q6H PRN PRN Reason: Pain, Mild (Pain Scale 1-3) Last Admin: 08/06/23 01:59 Dose: 650 mg Documented By: ALFREDO Ceftriaxone Sodium 1 gm/ (Sodium Chloride) 50 mls @ 100 mls/hr IV Q24H [facility] Last Infusion: 08/05/23 21:23 Dose: Infused Documented By: LIYAH Albumin Human (Kedbumin 25 %) 100 mls @ 100 mls/hr IV Q1H [facility] Stop: 08/06/23 09:59 Last Admin: 08/06/23 08:30 Dose: 100 mls/hr Documented By: KATHY Melatonin (Melatonin 3 Mg Tablet) 6 mg PO BEDTIME PRN PRN Reason: Insomnia Midodrine (Midodrine Hcl 10 Mg Tablet) 10 mg PO TIDWM [facility] Last Admin: 08/06/23 08:29 Dose: 10 mg Documented By: KATHY Octreotide Acetate (Octreotide Acetate 100 Mcg/Ml Ampul) 100 mcg SUBCUT Q8H [facility] Last Admin: 08/06/23 08:30 Dose: 100 mcg Documented By: KATHY Ondansetron HCl (Ondansetron Hcl 4 Mg/2 Ml Vial) 4 mg IVPUSH Q8H PRN PRN Reason: Nausea and Vomiting Sodium Chloride (0.9 % Sodium Chloride Flush 3 Ml Syringe) 3 ml IVFLUSH QSHIFT [facility] Last Admin: 08/06/23 08:30 Dose: 3 ml Documented By: KATHY Labs 08/06/23 06:01 08/06/23 06:01 Labs: Laboratory Results - last 24 hr 08/05/23 08/05/23 08/06/23 15:15 19:57 06:01 MCV 84.0 83.9 MCH 28.3 28.0 MCHC 33.7 33.3 RDW 14.0 14.0 Plt Count 254 226 MPV 10.3 10.9 Immature Gran % (Auto) 0.2 0.3 Neut % (Auto) 77.3 H 62.2 Lymph % (Auto) 15.6 L 22.2 [place] % (Auto) 6.1 12.9 H Eos % (Auto) 0.6 1.7 Baso % (Auto) 0.2 0.7 Lymph # (Auto) 0.7 L 0.7 L [place] # (Auto) 0.3 0.4 Eos # (Auto) 0.0 0.1 Baso # (Auto) 0.0 0.0 Abs Immat Gran (auto) 0.01 0.01 Absolute Neuts (auto) 3.7 1.9 L Absolute Nucleated RBC 0.000 0.000 Nucleated RBC % (auto) 0.0 0.0 PT 35.2 H D INR 2.9 H APTT 42.3 H Anion Gap 16 17 Estim Creat Clear Calc 31.8 26.7 Estimated GFR 21 17 Random Glucose 91 78 Calcium 9.3 8.7 D Total Bilirubin 0.4 AST 11 ALT 11 Alkaline Phosphatase 104 Ammonia 31 B-Natriuretic Peptide 47 Total Protein 7.6 Albumin 4.5 Amylase 36 Lipase 14 Urine Color Yellow Urine Appearance Clear Urine pH 5.5 Ur Specific [place] <= 1.005 Urine Protein Negative Urine Glucose (UA) Negative Urine Ketones Negative Urine Blood Small (1+) H Urine Nitrite Negative Ur Leukocyte Esterase Negative Urine RBC 0-2 Urine WBC 0-5 Ur Squamous Epith Cells 0-2 Urine Bacteria None Seen Hyaline Casts 0-2 Assessment and Plan (1) Hepatorenal syndrome: Status: Acute Plan 52F PMH liver cirrhosis due to MALDONADO, cervical cancer status post pelvic radiation, left lower extremity DVT on Coumadin, diabetes, GERD, schizophrenia presented with abdominal pain and swelling found to have acute kidney injury Decompensated MALDONADO cirrhosis complicated by painful ascites, acute kidney injury/ hepatorenal syndrome Empiric coverage for SBP with ceftriaxone, will need paracentesis diagnostic and therapeutic Octreotide, midodrine, albumin Monitor labs GI and Nephro eval Hyponatremia Due to cirrhosis, mild, monitor History of DVT Hold Coumadin for paracentesis Schizophrenia On risperidone IM q.2 weeks DVT prophylaxis - INR therapeutic Full code reason for continued hospitalization: DAVID Quality Stroke Does the patient have a stroke diagnosis?: No VTE Prior VTE?: No VTE Risk Level:: Medical - moderate - high VTE Device Contraindication: Treatment Not Indicated VTE Drug Contraindication: N/A - Med Ordered
[2023-08-06] MEDS: ondansetron HCL 4 MG/2 ML VIAL IVPUSH ×2 (09:36→20:37)
--- NOTE | 2023-08-06 09:47 | P.CNGI_ITS ---
History of Present Illness Data of Consult Service Date: 08/06/23 Requesting physician: Jamal Zendejas Primary Care Provider: Kristin Todd MD HPI Reason for consult: Cirrhosis with suspected hepatorenal syndrome 52 YF with ESLD due to MALDONADO complicated by ascites,, cervical cancer s/p pelvic radiation, hx of lower extremity DVT on warfarin, diet controlled type 2 diabetes, GERD, and schizophrenia seen at [facility] on 08/05/23 with worsening abdominal pain and swelling over the past few days. Patient also complains of increased swelling and pain in her lower extremities, especially left leg over the same period. Patient stated she has been eating and drinking normally, though notes she feels abdominal pain when urinating. Patient was hospitalzied [place] [facility] [place] with similar complaints. DAVID, ascites, and hyponatremia thought likely due to colonoscopy prep. Pt was started on spironolactone and home furosemide was reduced from 40 mg daily to 20 mg daily at discharge and reports compliance with medications since discharge. She denied fever, chills, nausea, vomiting, diarrhea, chest pain/pressure, palpitations. Chronic shortness of breath, worse with going upstairs. In the ED pt was tachypneic up to 28, vitals otherwise WNL. Labs were significant for sodium 130, BUN 22, and creatinine 2.45. No leukocytosis. Stable H&H. CXR showed no acute cardiopulmonary disease. CT?of abdomen and pelvis found ascites, liver cirrhosis, engorgement of portal vein and splenic perinephric veins concerning for portal hypertension/portosystemic shunting, small right pleural effusion, excessive amount of stool in the colon suggestive of constipation, and atrophic pancreas. Venous duplex of right lower extremity found no DVT demonstrated, but exam limited due to patient's body habitus with peroneal vein not visualized. Patient was given IVF, albumin, and ceftriaxone and admitted for further management. Review of Systems 2 Review of Systems: Worsening abdominal swelling and pain Worsening lower leg swelling and pain Chronic shortness of breath, especially with going upstairs Denies fever, chills, nausea, vomiting, diarrhea No chest pain/pressure, palpitations PMFSH Past Medical History Medical History Liver cirrhosis secondary to MALDONADO Obstructive uropathy Hyponatremia Cirrhosis of liver with ascites Acute kidney insufficiency UTI (urinary tract infection) Cervical cancer Lymphedema Cardiac arrest DVT (deep venous thrombosis) Social History Social History Household Members: Children Household Members Other:: Son, daughter Housing: Apartment Do you presently have visiting nurse or other home services: Yes ([facility] Tues and Fri, pt's son and brother are her junior accountant) Alcohol intake: never Comment: DAUGHTER STAYING OVERNIGHT Patient Tobacco Use Status: Never used Tobacco e-Cigarette/Vaping Use: Never Used Advance Directives Date on File: 01/03/23 service: No Meds Allergies Allergy/AdvReac Type Severity Reaction Status Date / Time No Known Allergies Allergy Verified 09/05/23 08:27 [No Known Allergies*] Active Medications: Current Medications Acetaminophen (Acetaminophen 325 Mg Tablet) 650 mg PO Q6H PRN PRN Reason: Pain, Mild (Pain Scale 1-3) Last Admin: 08/06/23 01:59 Dose: 650 mg Ceftriaxone Sodium 1 gm/ (Sodium Chloride) 50 mls @ 100 mls/hr IV Q24H [facility] Last Infusion: 08/05/23 21:23 Dose: Infused Albumin Human (Kedbumin 25 %) 100 mls @ 100 mls/hr IV Q1H [facility] Stop: 08/06/23 09:59 Last Admin: 08/06/23 09:34 Dose: 100 mls/hr Melatonin (Melatonin 3 Mg Tablet) 6 mg PO BEDTIME PRN PRN Reason: Insomnia Midodrine (Midodrine Hcl 10 Mg Tablet) 10 mg PO TIDWM [facility] Last Admin: 08/06/23 08:29 Dose: 10 mg Octreotide Acetate (Octreotide Acetate 100 Mcg/Ml Ampul) 100 mcg SUBCUT Q8H [facility] Last Admin: 08/06/23 08:30 Dose: 100 mcg Ondansetron HCl (Ondansetron Hcl 4 Mg/2 Ml Vial) 4 mg IVPUSH Q8H PRN PRN Reason: Nausea and Vomiting Last Admin: 08/06/23 09:36 Dose: 4 mg Sodium Chloride (0.9 % Sodium Chloride Flush 3 Ml Syringe) 3 ml IVFLUSH QSHIFT [facility] Last Admin: 08/06/23 08:30 Dose: 3 ml Home Medications ?Medication ?Instructions ?Recorded ?Confirmed ?Last Taken ?Type bupropion HCl 200 mg tablet,12 hr 200 mg PO BID depressive disorder 01/03/23 09/05/23 07/12/23 History sustained-release citalopram 40 mg tablet 40 mg PO QAM depressive disorder 01/03/23 09/05/23 07/12/23 History hydroxyzine pamoate 25 mg capsule 25 mg PO TID PRN Anxiety 01/03/23 09/05/23 Unknown History loratadine 10 mg tablet 10 mg PO DAILY 01/03/23 09/05/23 07/12/23 History ondansetron HCl 4 mg tablet 4 mg PO BID Nausea And Vomiting 01/03/23 09/05/23 07/12/23 History risperidone microspheres 50 mg/2 50 mg IM Q2W 01/03/23 09/05/23 08/05/23 History mL intramuscular susp,ext release (Risperdal Consta) zolpidem 10 mg tablet 10 mg PO BEDTIME Insomnia 01/03/23 09/05/23 07/12/23 History triamcinolone acetonide 0.025 % 1 appl topical BID PRN Rash 03/11/23 09/05/23 Unknown History topical ointment warfarin 5 mg tablet 5 - 10 mg PO DAILY 03/11/23 09/05/23 07/12/23 History benztropine 0.5 mg tablet 0.5 mg PO BID PRN dystonias 07/13/23 09/05/23 Unknown History nystatin 100,000 unit/gram topical 1 appl topical BID 07/13/23 09/05/23 07/12/23 History powder warfarin 4 mg tablet 4 - 8 mg PO DAILY 07/13/23 09/05/23 08/05/23 History warfarin 6 mg tablet 6 mg PO DAILY 07/13/23 09/05/23 Unknown History furosemide 40 mg tablet 40 mg PO DAILY 08/05/23 09/05/23 Unknown History Physical Exam 2 Vital Signs: Vital Signs: Last Vital Signs Temp 97.0 F 08/06/23 07:57 Pulse 83 08/06/23 07:57 Resp 18 08/06/23 07:57 BP 117/66 08/06/23 07:57 Pulse Ox 95 08/06/23 07:57 O2 Del Method Room Air 08/06/23 07:57 BMI result Body Mass Index 44.8 Const: General: cooperative, healthy appearing and no acute distress N utritional Appearance: obese and overweight Orientation/consciousness: p atient oriented x3 HEENT: Head: Yes normal to inspection, Yes normocephalic and Yes atraumatic Eyes: Conjunctivae: conjunctivae normal Neck: Neck: Yes normal visual inspection and Yes trachea midline Chest: Chest palpation & inspection: normal inspection of the chest Resp: Effort & Inspection: normal respiratory effort Cardio: Rate: regular rate GI: Inspection: Yes normal to inspection Palpation (GI): Soft to palpation Neuro: General: patient oriented x3 Psych: Appearance: grossly normal Results Labs 08/10/23 05:45 08/10/23 05:45 Labs: Short CBC 08/05/23 08/06/23 Range/Units 15:15 06:01 WBC 4.8 3.0 L (4.8-10.8) X10*3/uL Hgb 13.4 12.2 (12.0-16.0) g/dl Hct 39.8 36.6 L (37.0-47.0) % Plt Count 254 226 (160-400) X10*3/uL BMP 08/05/23 08/06/23 15:15 06:01 Sodium 130 L 132 L Potassium 4.1 3.9 Chloride 96 99 Carbon Dioxide 22 20 L BUN 22 H 25 H Creatinine 2.45 H 2.93 H Calcium 9.3 8.7 D Liver Function 08/05/23 Range/Units 15:15 Total Bilirubin 0.4 (0.0-1.0) mg/dL AST 11 (5-31) U/L ALT 11 (0-31) U/L Alkaline Phosphatase 104 (39-117) U/L Albumin 4.5 (3.5-5.0) g/dL Urine 08/05/23 Range/Units 19:57 Urine Color Yellow Urine Appearance Clear Urine pH 5.5 (5.0-9.0) Ur Specific [place]ey <= 1.005 (1.005-1.025) Urine Protein Negative (Neg-Trace) mg/dL Urine Glucose (UA) Negative (Negative) mg/dL Assessment and Plan (1) DAVID (acute kidney injury): Status: Resolved (2) Hepatorenal syndrome: Status: Deleted (3) Ascites: Status: Resolved (4) Hyponatremia: Status: Resolved (5) Abdominal pain: Status: Resolved (6) Liver cirrhosis secondary to MALDONADO: Status: Inactive Plan 52 year old Maori-speaking female with morbid obesity, diet-controlled diabetes, stage IIIB cervical cancer (status post radiation chemotherapy complicated by radiation cystiti), extensive lower extremity DVT on Coumadin, schizophrenia, GERD, history of cardiac arrest due to hemorrhagic shock in 2014 admitted [place] [facility] [place] with abdominal pain, worsening abdominal distension and lower extermity edema. Patient denies any history of IV drug abuse, past blood transfusion or history of hepatitis. Patient denies smoking or EtOH abuse. Elevated BUN and Cr likely due to Pre-renal azotemia with HRS. Hepatitis-B and C serologies were negative. ROX, protein electrophoresis, smooth muscle antibody, antimitochondrial antibody, alpha 1 antitrypsin, celiac serologies and iron studies were normal Liver fibrosis score was 0.05 and liver fibrosis stage of F0 in the past. Etiology of cirrhosis is unclear - most likely due to MALDONADO associated with morbid obesity and diabetes mellitus. Patient has normal LFTs, platelet count and albumin Ascitic fluid analysis in the past was consistent with portal hypertension without SBP MELD Na of 33 (falsely high due to elevated INR from warfarin). Pt is being [facility] at [facility] RECOMMENDATIONS: 1. Therapeutic paracentesis by IR on 08/08/23 and check cell count and diff to rule out SBP 2. Agree with continuing midodrine, octreotide and albumin and following renal function. 3. Abdominal US with elastography Hospital Course: Decompensated MALDONADO cirrhosis with abdominal pain. observed inpatient on Ceftriaxone for risk of SBP as we were unable to get paracentesis over weekend given that INR too high initially. Her abdominal pain resolved along with as distention imrpoved. Antibiotic was discontinued as Paracentesis was cancelled. To follow as outpatient on her regular medicaitons of Lasix and Spironolactone. She was found in acute kidney injury as a result of obstruction as creatinine improved back to baseline after Mcallister catheter placement. Evaluated by urologist who recommended to keep Mcallister on discharge and to follow him as outpatient for neurogenic bladder work up. She developed postobstructive diuresis with mild hypotension that was evaluated by cbx operator who recommended Midodrine to keep SBP >90. to be discharged on 1 week supplement of Midodrine with a plan to follow with PCP as outpatient and repeat kidney function. She had hyponatremia on admission related to kidney injury that resolved back to normal. Found to have elevated INR of almost 6. improved back to therapeutic range after holding it. to continue home dose Warfarin on discharge. Discharge plan Advance diet as tolerated at home Hold Lasix and Spironolactone for 2 more days Continue Midodrine for 1 more week Follow with dr Hoff as outpatient Increase Protein in your diet. Drink Ensure if available Mcallister catheter - Patient will self manage at home Procedures Date of Service Date of Service: 09/11/23
--- NOTE | 2023-08-06 09:50 | PM.EVENT ---
Event Note Date of Service: 08/09/23 Event Note: Chart reviewed 52 with liver cirrhosis due to MALDONADO, cervical cancer status post pelvic radiation, left lower extremity DVT on Coumadin, diabetes, GERD, schizophrenia presented with abdominal pain and swelling found to have acute kidney injury Cr up from 0.89 to 2.5 DDX : Hypoperfusion /ATN HRS Watch for obstruction Hold diuretics Avoid hypotension Agree with Midodrine/Octreotide/Albumin No indication for dialysis todya Watch urine output Full consult to follow Time Spent With Patient Time: Total time managing care of this patient today ____ minutes.
[2023-08-06 10:29] LABS: Prothrombin Time 48.2 SEC (11.1-13.3)
--- NOTE | 2023-08-06 11:04 | MHC.CM.PN ---
PT LIVES WITH DGTER AND SON PT HAS A DOCK GUARD SHE ALSO HAS A LOCK BOX WGO IS MANAGED BY ANNIE ,PT HAS A RIDE HOME
[2023-08-06 15:44] VITALS: BP 117/63; PULSE 85; RESP 12; TEMP 36.7; O2SAT 91
[2023-08-06] MEDS: cefTRIAXone sodium 1 GM in 0.9 % Sodium Chloride 50 ML IV (19:41)
[2023-08-06 19:45] VITALS: BP 117/58; PULSE 87; RESP 18; TEMP 36.1; O2SAT 90
--- NOTE | 2023-08-06 19:50 | PM.EVENT ---
Event Note Date of Service: 08/06/23 Event Note: Nurse reported patient satting 89-90% on room air. Likely restrictive in setting of abdominal distention versus LEE. Will obtain ABG and chest x-ray Time Spent With Patient Time: Total time managing care of this patient today ____ minutes.
[2023-08-06 20:30] LABS: VBG Base Excess -1.6 mmol/L; VBG HCO3 22 mmol/L (22-26); VBG pCO2 37 mmHg; VBG pH 7.38 (7.32-7.43); VBG pO2 72 mmHg
[2023-08-06 20:31] LABS: Venous Blood Gas Refer to POC result
[2023-08-06] MEDS: HYDROmorphone HCl 0.5 MG/0.5 ML SYRINGE IVPUSH (22:09)
[2023-08-06] MEDS: Melatonin 3 MG TABLET 6 MG PO (22:16)
[2023-08-07] MEDS: Octreotide Acetate 100 MCG/ML AMPUL SUBCUT ×4 (01:00→23:42)
[2023-08-07] MEDS: 0.9 % Sodium Chloride Flush 3 ML SYRINGE IVFLUSH ×4 (01:01→19:38)
[2023-08-07 03:42] VITALS: BP 119/60; PULSE 76; RESP 20; TEMP 35.5; O2SAT 94
[2023-08-07] MEDS: Acetaminophen 325 MG TABLET 650 MG PO (04:25)
[2023-08-07] MEDS: ondansetron HCL 4 MG/2 ML VIAL IVPUSH ×2 (04:31→15:33)
--- NOTE | 2023-08-07 06:20 | PC.NURSE ---
5 am was given Tylenol for pain when reassessed pain was not relieved md notified
[2023-08-07 06:48] LABS: Hematocrit 40.7 % (37.0-47.0); Hemoglobin 13.3 g/dl (12.0-16.0); Mean Corpuscular HGB Conc 32.7 g/dl (31.0-35.0); Mean Corpuscular Hemoglobin 28.1 pg (27.0-33.0); Mean Corpuscular Volume 85.9 fL (80.0-98.0); Platelet Count 239 X10*3/uL (160-400); Red Blood Count 4.74 X10*6/uL (4.20-5.50); Red Cell Distribution Width 14.4 % (11.0-16.0); White Blood Count 4.9 X10*3/uL (4.8-10.8)
[2023-08-07 06:59] LABS: Alanine Aminotransferase 8 U/L (0-31); Alkaline Phosphatase 93 U/L (39-117); Anion Gap 20 (12-20); Aspartate Amino Transferase 8 U/L (5-31); Bilirubin Direct 0.2 mg/dL (0.0-0.5); Bilirubin Total 0.5 mg/dL (0.0-1.0); Blood Urea Nitrogen 29 mg/dL (9-16); Calcium 9.1 mg/dL (8.4-10.2); Carbon Dioxide 20 mmol/L (22-29); Chloride 97 mmol/L (96-108); Creatinine Clr Calc Pharmacy 21.3; Estimated Glomerular Filt Rate 13; Glucose Fasting 120 mg/dL (60-99); Potassium 4.6 mmol/L (3.3-5.1); Sodium 132 mmol/L (135-145)
[2023-08-07 07:16] LABS: INTERNATIONAL NORM RATIO 5.1 (0.9-1.1)
[2023-08-07 07:25] VITALS: BP 137/72; PULSE 59; RESP 18; TEMP 36.2; O2SAT 96
[2023-08-07] MEDS: oxyCODONE HCl Immed Release 5 MG TABLET PO ×3 (07:35→23:42)
[2023-08-07] MEDS: Midodrine HCl 10 MG TABLET PO ×2 (07:36→15:31)
--- NOTE | 2023-08-07 09:25 | P.PNIM_ITS ---
Subjective Subjective Date of Service: 08/07/23 Interval History: abd pain, oliguria Physical Exam 2 Vital Signs: Vital Signs: Last Vital Signs Temp 97.2 F 08/07/23 07:25 Pulse 59 08/07/23 07:25 Resp 18 08/07/23 07:25 BP 137/72 08/07/23 07:25 Pulse Ox 96 08/07/23 07:25 O2 Del Method Nasal Cannula 08/07/23 07:25 O2 Flow Rate 2 08/07/23 07:25 BMI result Body Mass Index 44.8 General: AO X 3, no acute distress Resp: CTA bilateral, no accessory muscles used CVS: S1,S2,RRR, 3 + bialteral edema GI: soft, tender, distended Neuro: motor grossly intact, alert Psych: appropriate affect, appropriate insight Objective Data Active Medications Acetaminophen (Acetaminophen 325 Mg Tablet) 650 mg PO Q6H PRN PRN Reason: Pain, Mild (Pain Scale 1-3) Last Admin: 08/07/23 04:25 Dose: 650 mg Documented By: ALFREDO Ceftriaxone Sodium 1 gm/ (Sodium Chloride) 50 mls @ 100 mls/hr IV Q24H [facility] Last Infusion: 08/06/23 20:37 Dose: Infused Documented By: ALFREDO Melatonin (Melatonin 3 Mg Tablet) 6 mg PO BEDTIME PRN PRN Reason: Insomnia Last Admin: 08/06/23 22:16 Dose: 6 mg Documented By: TORRI Midodrine (Midodrine Hcl 10 Mg Tablet) 10 mg PO TIDWM [facility] Last Admin: 08/07/23 07:36 Dose: 10 mg Documented By: KATHY Octreotide Acetate (Octreotide Acetate 100 Mcg/Ml Ampul) 100 mcg SUBCUT Q8H [facility] Last Admin: 08/07/23 07:36 Dose: 100 mcg Documented By: KATHY Ondansetron HCl (Ondansetron Hcl 4 Mg/2 Ml Vial) 4 mg IVPUSH Q8H PRN PRN Reason: Nausea and Vomiting Last Admin: 08/07/23 04:31 Dose: 4 mg Documented By: ALFREDO Oxycodone HCl (Oxycodone Hcl Immed Release 5 Mg Tablet) 5 mg PO Q6H PRN PRN Reason: moderate pain Last Admin: 08/07/23 07:35 Dose: 5 mg Documented By: KATHY Sodium Chloride (0.9 % Sodium Chloride Flush 3 Ml Syringe) 3 ml IVFLUSH QSHIFT [facility] Last Admin: 08/07/23 07:36 Dose: 3 ml Documented By: KATHY Labs 08/07/23 05:56 08/07/23 05:56 Labs: Laboratory Results - last 24 hr 08/06/23 08/06/23 08/07/23 10:09 20:24 05:56 MCV 85.9 MCH 28.1 MCHC 32.7 RDW 14.4 Plt Count 239 MPV 11.0 Absolute Nucleated RBC 0.000 Nucleated RBC % (auto) 0.0 PT 48.2 H D 62.0 H D INR 4.0 H 5.1 H* VBG pH 7.38 VBG pCO2 37 VBG pO2 72 VBG HCO3 22 VBG O2 Saturation 95.0 VBG Base Excess -1.6 Anion Gap 20 Estim Creat Clear Calc 21.3 Estimated GFR 13 Fasting Glucose 120 H Calcium 9.1 Total Bilirubin 0.5 Direct Bilirubin 0.2 AST 8 ALT 8 Alkaline Phosphatase 93 Total Protein 8.0 Albumin 5.0 Assessment and Plan (1) Hepatorenal syndrome: Status: Acute Plan 52F PMH liver cirrhosis due to MALDONADO, cervical cancer status post pelvic radiation, left lower extremity DVT on Coumadin, diabetes, GERD, schizophrenia presented with abdominal pain and swelling found to have acute kidney injury Decompensated MALDONADO cirrhosis complicated by painful ascites, acute kidney injury/ hepatorenal syndrome worsening creatnine, oliguria Empiric coverage for SBP with ceftriaxone, will need paracentesis diagnostic and therapeutic Octreotide, midodrine, albumin Monitor labs GI and Nephro following Hyponatremia Due to cirrhosis, mild, monitor History of DVT Hold Coumadin for paracentesis Schizophrenia On risperidone IM q.2 weeks DVT prophylaxis - INR supratherapeutic Full code reason for continued hospitalization: DAVID Quality Stroke Does the patient have a stroke diagnosis?: No VTE Prior VTE?: No VTE Risk Level:: Medical - moderate - high VTE Device Contraindication: Treatment Not Indicated VTE Drug Contraindication: N/A - Med Ordered
[2023-08-07 11:58] VITALS: BP 145/74; PULSE 55; RESP 18; TEMP 36.4; O2SAT 97
[2023-08-07] MEDS: polyethylene glycoL 3350 17 GM POWD.PACK PO ×2 (11:58→20:14)
[2023-08-07 15:22] VITALS: BP 135/73; PULSE 60; RESP 14; TEMP 36.4; O2SAT 96
[2023-08-07] MEDS: cefTRIAXone sodium 1 GM in 0.9 % Sodium Chloride 50 ML IV (19:38)
[2023-08-07 19:54] VITALS: BP 133/65; PULSE 67; RESP 17; TEMP 36.5; O2SAT 95
[2023-08-07] MEDS: Melatonin 3 MG TABLET 6 MG PO (20:37)
[2023-08-07 23:32] VITALS: BP 159/85; PULSE 68; RESP 16; TEMP 36.4; O2SAT 95
[2023-08-08] VITALS (12 sets, daily range): BP systolic 106–134; BP diastolic 53–73; PULSE 64–86; RESP 16–20; TEMP 36.1–36.8; O2SAT 92–97
[2023-08-08 06:20] LABS: Hematocrit 40.7 % (37.0-47.0); Hemoglobin 13.1 g/dl (12.0-16.0); Mean Corpuscular HGB Conc 32.2 g/dl (31.0-35.0); Mean Corpuscular Hemoglobin 27.5 pg (27.0-33.0); Mean Corpuscular Volume 85.3 fL (80.0-98.0); Mean Platelet Volume 10.9 fL (9.4-12.3); Platelet Count 237 X10*3/uL (160-400); Red Blood Count 4.77 X10*6/uL (4.20-5.50); Red Cell Distribution Width 14.1 % (11.0-16.0); White Blood Count 4.5 X10*3/uL (4.8-10.8)
[2023-08-08 06:42] LABS: Prothrombin Time 73.5 SEC (11.1-13.3)
--- NOTE | 2023-08-08 06:43 | PC.NURSE ---
per pt no sensation on bladder, she can not feels the bladder to empty, but she tried to void. can not pee. 0000 bladder scan 528 ML, straight cat out put 500 mL, 0600 bladder scan 546 mL, straight cat output 500 mL. residual 445 mL. confusing with ascites. will cont. monitor
[2023-08-08 07:06] LABS: Alanine Aminotransferase 7 U/L (0-31); Albumin Level 4.9 g/dL (3.5-5.0); Alkaline Phosphatase 93 U/L (39-117); Anion Gap 18 (12-20); Aspartate Amino Transferase 9 U/L (5-31); Bilirubin Direct 0.2 mg/dL (0.0-0.5); Bilirubin Total 0.5 mg/dL (0.0-1.0); Blood Urea Nitrogen 33 mg/dL (9-16); Calcium 9.5 mg/dL (8.4-10.2); Carbon Dioxide 23 mmol/L (22-29); Chloride 98 mmol/L (96-108); Glucose Fasting 130 mg/dL (60-99); Magnesium 2.3 mg/dL (1.6-2.6); Potassium 4.5 mmol/L (3.3-5.1); Sodium 134 mmol/L (135-145)
[2023-08-08 07:11] LABS: Creatinine Clr Calc Pharmacy 19.2; Estimated Glomerular Filt Rate 12
[2023-08-08] MEDS: 0.9 % Sodium Chloride Flush 3 ML SYRINGE IVFLUSH ×4 (08:42→19:24)
[2023-08-08] MEDS: Midodrine HCl 10 MG TABLET PO ×3 (09:13→17:39)
[2023-08-08] MEDS: oxyCODONE HCl Immed Release 5 MG TABLET PO (09:13)
[2023-08-08] MEDS: polyethylene glycoL 3350 17 GM POWD.PACK PO ×2 (09:14→22:13)
[2023-08-08] MEDS: Octreotide Acetate 100 MCG/ML AMPUL SUBCUT ×2 (09:14→17:39)
--- NOTE | 2023-08-08 09:50 | P.PNIM_ITS ---
Subjective Subjective Date of Service: 08/08/23 Interval History: abd pain, oliguria Physical Exam 2 Vital Signs: Vital Signs: Last Vital Signs Temp 97.6 F 08/08/23 07:38 Pulse 64 08/08/23 07:38 Resp 18 08/08/23 07:38 BP 132/73 08/08/23 07:38 Pulse Ox 97 08/08/23 07:38 O2 Del Method Nasal Cannula 08/08/23 07:38 O2 Flow Rate 2 08/08/23 07:38 BMI result Body Mass Index 44.8 General: AO X 3, no acute distress Resp: CTA bilateral, no accessory muscles used CVS: S1,S2,RRR, 3 + bialteral edema GI: soft, tender, distended Neuro: motor grossly intact, alert Psych: appropriate affect, appropriate insight Objective Data Active Medications Acetaminophen (Acetaminophen 325 Mg Tablet) 650 mg PO Q6H PRN PRN Reason: Pain, Mild (Pain Scale 1-3) Last Admin: 08/07/23 04:25 Dose: 650 mg Documented By: ALFREDO Ceftriaxone Sodium 1 gm/ (Sodium Chloride) 50 mls @ 100 mls/hr IV Q24H [facility] Last Infusion: 08/07/23 20:15 Dose: Infused Documented By: CHET Melatonin (Melatonin 3 Mg Tablet) 6 mg PO BEDTIME PRN PRN Reason: Insomnia Last Admin: 08/07/23 20:37 Dose: 6 mg Documented By: CHET Midodrine (Midodrine Hcl 10 Mg Tablet) 10 mg PO TIDWM [facility] Last Admin: 08/08/23 09:13 Dose: 10 mg Documented By: CASSI Octreotide Acetate (Octreotide Acetate 100 Mcg/Ml Ampul) 100 mcg SUBCUT Q8H [facility] Last Admin: 08/08/23 09:14 Dose: 100 mcg Documented By: CASSI Ondansetron HCl (Ondansetron Hcl 4 Mg/2 Ml Vial) 4 mg IVPUSH Q8H PRN PRN Reason: Nausea and Vomiting Last Admin: 08/07/23 15:33 Dose: 4 mg Documented By: MARY ELLENB Oxycodone HCl (Oxycodone Hcl Immed Release 5 Mg Tablet) 5 mg PO Q6H PRN PRN Reason: moderate pain Last Admin: 08/08/23 09:13 Dose: 5 mg Documented By: CASSI Polyethylene Glycol (Polyethylene Glycol 3350 17 Gm Powd.Pack) 17 gm PO BID [facility] Last Admin: 08/08/23 09:14 Dose: 17 gm Documented By: CASSI Sodium Chloride (0.9 % Sodium Chloride Flush 3 Ml Syringe) 3 ml IVFLUSH QSHIFT [facility] Last Admin: 08/08/23 08:42 Dose: 3 ml Documented By: CASSI Labs 08/08/23 05:40 08/08/23 05:40 Labs: Laboratory Results - last 24 hr 08/08/23 08/08/23 05:40 08:15 MCV 85.3 MCH 27.5 MCHC 32.2 RDW 14.1 Plt Count 237 MPV 10.9 Absolute Nucleated RBC 0.000 Nucleated RBC % (auto) 0.0 PT 73.5 H INR 6.0 H* Anion Gap 18 Estim Creat Clear Calc 19.2 Estimated GFR 12 Fasting Glucose 130 H Calcium 9.5 Magnesium 2.3 Total Bilirubin 0.5 Direct Bilirubin 0.2 AST 9 ALT 7 Alkaline Phosphatase 93 Total Protein 8.0 Albumin 4.9 Blood Type B Positive Antibody Screen NEGATIVE Assessment and Plan (1) Hepatorenal syndrome: Status: Acute Plan 52F PMH liver cirrhosis due to MALDONADO, cervical cancer status post pelvic radiation, left lower extremity DVT on Coumadin, diabetes, GERD, schizophrenia presented with abdominal pain and swelling found to have acute kidney injury Decompensated MALDONADO cirrhosis complicated by painful ascites, acute kidney injury worsening creatnine, oliguria - also with urinary retention - francisco placed Empiric coverage for SBP with ceftriaxone, will need paracentesis diagnostic and therapeutic once inr improved - giving 2 units ffp Octreotide, midodrine, albumin Monitor labs GI and Nephro following Hyponatremia Due to cirrhosis, mild, monitor History of DVT Hold Coumadin for paracentesis Schizophrenia On risperidone IM q.2 weeks DVT prophylaxis - INR supratherapeutic Full code reason for continued hospitalization: DAVID Quality Stroke Does the patient have a stroke diagnosis?: No VTE Prior VTE?: No VTE Risk Level:: Medical - moderate - high VTE Device Contraindication: Treatment Not Indicated VTE Drug Contraindication: N/A - Med Ordered
--- NOTE | 2023-08-08 13:28 | P.PNNP_ITS ---
Subjective Subjective Date of Service: 08/08/23 Interval history: Events noted abd pain, oliguria Physical Exam 2 Vital Signs: Vital Signs: Last Vital Signs Temp 98 F 08/08/23 13:14 Pulse 82 08/08/23 13:14 Resp 18 08/08/23 13:14 BP 113/56 L 08/08/23 13:14 Pulse Ox 92 08/08/23 12:00 O2 Del Method Room Air 08/08/23 12:00 O2 Flow Rate 2 08/08/23 07:38 BMI result Body Mass Index 44.8 Const: General: ill appearing Neck: Neck: Yes supple Resp: Auscultation: clear to auscultation bilaterally Cardio: Palpation: no palpable S3 Heart sounds: no rubs GI: Palpation (GI): Soft to palpation Auscultation: normal bowel sounds Neuro: Motor exam (neuro): no asterixis Objective Data Labs 08/08/23 05:40 08/08/23 05:40 Labs: Laboratory Results - last 24 hr 08/08/23 08/08/23 05:40 08:15 WBC 4.5 L RBC 4.77 Hgb 13.1 Hct 40.7 MCV 85.3 MCH 27.5 MCHC 32.2 RDW 14.1 Plt Count 237 MPV 10.9 Absolute Nucleated RBC 0.000 Nucleated RBC % (auto) 0.0 PT 73.5 H INR 6.0 H* Sodium 134 L Potassium 4.5 Chloride 98 Carbon Dioxide 23 Anion Gap 18 BUN 33 H Creatinine 4.07 H* Estim Creat Clear Calc 19.2 Estimated GFR 12 Fasting Glucose 130 H Calcium 9.5 Magnesium 2.3 Total Bilirubin 0.5 Direct Bilirubin 0.2 AST 9 ALT 7 Alkaline Phosphatase 93 Total Protein 8.0 Albumin 4.9 Blood Type B Positive Antibody Screen NEGATIVE Procedures Date of Service Date of Service: 08/08/23 Assessment & Plan Assessment and plan (1) DAVID (acute kidney injury): Status: Acute (2) Hyponatremia: Status: Acute (3) Abdominal pain: Status: Acute Plan Acute Kidney Injury Probably from urinary retnetion ?compromise in renal perfusion/tubular injury Urine studies shows LOW urine Na suggestive of hypoperfusion No evidence of AIN/ GN Midodrine to keep SBP > 90 Avoid hypotension Mcallister catheter WAtch output Time Spent With Patient Time: Total time managing care of this patient today ____ minutes. Progress Note: Quality Stroke Does the patient have a stroke diagnosis?: No
[2023-08-08] MEDS: cefTRIAXone sodium 1 GM in 0.9 % Sodium Chloride 50 ML IV (19:24)
[2023-08-08] MEDS: Melatonin 3 MG TABLET 6 MG PO (22:13)
[2023-08-09] MEDS: Octreotide Acetate 100 MCG/ML AMPUL SUBCUT (00:04)
[2023-08-09 02:57] VITALS: BP 113/59; PULSE 78; RESP 17; TEMP 36.4; O2SAT 95
[2023-08-09 06:49] LABS: Hemoglobin 11.7 g/dl (12.0-16.0); Mean Corpuscular HGB Conc 32.5 g/dl (31.0-35.0); Mean Corpuscular Hemoglobin 27.9 pg (27.0-33.0); Mean Corpuscular Volume 85.7 fL (80.0-98.0); Mean Platelet Volume 10.8 fL (9.4-12.3); Platelet Count 229 X10*3/uL (160-400); Red Cell Distribution Width 14.3 % (11.0-16.0); White Blood Count 3.6 X10*3/uL (4.8-10.8)
[2023-08-09 06:53] LABS: INTERNATIONAL NORM RATIO 2.9 (0.9-1.1); Prothrombin Time 35.2 SEC (11.1-13.3)
[2023-08-09 07:03] LABS: Anion Gap 14 (12-20); Blood Urea Nitrogen 9 mg/dL (9-16); Carbon Dioxide 29 mmol/L (22-29); Chloride 103 mmol/L (96-108); Creatinine Clr Calc Pharmacy 120.4; Estimated Glomerular Filt Rate > 60; Glucose Fasting 95 mg/dL (60-99); Potassium 4.1 mmol/L (3.3-5.1); Sodium 142 mmol/L (135-145)
[2023-08-09 07:50] VITALS: BP 103/55; PULSE 71; RESP 17; TEMP 36.4; O2SAT 93
[2023-08-09] MEDS: Midodrine HCl 10 MG TABLET PO ×3 (08:15→16:48)
[2023-08-09] MEDS: polyethylene glycoL 3350 17 GM POWD.PACK PO ×2 (08:15→19:42)
[2023-08-09] MEDS: 0.9 % Sodium Chloride Flush 3 ML SYRINGE IVFLUSH ×2 (08:16→16:51)
--- NOTE | 2023-08-09 11:17 | P.PNIM_ITS ---
Subjective Subjective Date of Service: 08/09/23 Interval History: feeling much better, abd pain resolved Physical Exam 2 Vital Signs: Vital Signs: Last Vital Signs Temp 97.6 F 08/09/23 07:50 Pulse 71 08/09/23 07:50 Resp 17 08/09/23 07:50 BP 103/55 L 08/09/23 07:50 Pulse Ox 93 08/09/23 07:50 O2 Del Method Room Air 08/09/23 07:50 O2 Flow Rate 2 08/08/23 07:38 BMI result Body Mass Index 44.8 General: AO X 3, no acute distress Resp: CTA bilateral, no accessory muscles used CVS: S1,S2,RRR GI: soft, non tender, non distended Neuro: motor grossly intact, alert Psych: appropriate affect, appropriate insight Objective Data Active Medications Acetaminophen (Acetaminophen 325 Mg Tablet) 650 mg PO Q6H PRN PRN Reason: Pain, Mild (Pain Scale 1-3) Last Admin: 08/07/23 04:25 Dose: 650 mg Ceftriaxone Sodium 1 gm/ (Sodium Chloride) 50 mls @ 100 mls/hr IV Q24H [facility] Last Infusion: 08/08/23 19:59 Dose: Infused Documented By: CHET Melatonin (Melatonin 3 Mg Tablet) 6 mg PO BEDTIME PRN PRN Reason: Insomnia Last Admin: 08/08/23 22:13 Dose: 6 mg Documented By: CHET Midodrine (Midodrine Hcl 10 Mg Tablet) 10 mg PO TIDWM [facility] Last Admin: 08/09/23 08:15 Dose: 10 mg Documented By: THEODORE Ondansetron HCl (Ondansetron Hcl 4 Mg/2 Ml Vial) 4 mg IVPUSH Q8H PRN PRN Reason: Nausea and Vomiting Last Admin: 08/07/23 15:33 Dose: 4 mg Documented By: FOGARTConchita Oxycodone HCl (Oxycodone Hcl Immed Release 5 Mg Tablet) 5 mg PO Q6H PRN PRN Reason: moderate pain Last Admin: 08/08/23 09:13 Dose: 5 mg Documented By: CASSI Polyethylene Glycol (Polyethylene Glycol 3350 17 Gm Powd.Pack) 17 gm PO BID [facility] Last Admin: 08/09/23 08:15 Dose: 17 gm Documented By: THEODORE Sodium Chloride (0.9 % Sodium Chloride Flush 3 Ml Syringe) 3 ml IVFLUSH QSHIFT [facility] Last Admin: 08/09/23 08:16 Dose: 3 ml Documented By: THEODORE Labs 08/09/23 05:46 08/09/23 05:46 Labs: Laboratory Results - last 24 hr 08/08/23 08/09/23 08:15 05:46 MCV 85.7 MCH 27.9 MCHC 32.5 RDW 14.3 Plt Count 229 MPV 10.8 Absolute Nucleated RBC 0.000 Nucleated RBC % (auto) 0.0 PT 35.2 H D INR 2.9 H D Anion Gap 14 Estim Creat Clear Calc 120.4 Estimated GFR > 60 Fasting Glucose 95 Calcium 9.0 Blood Type B Positive Antibody Screen NEGATIVE Assessment and Plan (1) Hepatorenal syndrome: Status: Deleted Plan 52F PMH liver cirrhosis due to MALDONADO, cervical cancer status post pelvic radiation, left lower extremity DVT on Coumadin, diabetes, GERD, schizophrenia presented with abdominal pain and swelling found to have acute kidney injury Decompensated MALDONADO cirrhosis with abd pain initially concern for SBP, though abd now non distended, non tender, unable to get paracentesis over weekend and then inr was too high will hold off for now as symptoms resolved, will dc rocephin acute kidney injury initially treated as hepatorenal, but had dramatic improvement after francisco placement despite no hydro on imaging, now with postobstructive diuresis keep francisco, urology eval, monitor electrolytes Hyponatremia resolved History of DVT on coumadin, was supratherapuetic, can restart now, monitor inr Schizophrenia On risperidone IM q.2 weeks DVT prophylaxis - INR supratherapeutic Full code reason for continued hospitalization: monitor postobstructive diuresis Quality Stroke Does the patient have a stroke diagnosis?: No VTE Prior VTE?: No VTE Risk Level:: Medical - moderate - high VTE Device Contraindication: Treatment Not Indicated VTE Drug Contraindication: N/A - Med Ordered
[2023-08-09 12:00] VITALS: BP 101/54; PULSE 58; RESP 16; TEMP 36.2; O2SAT 95
--- NOTE | 2023-08-09 12:57 | P.PNNP_ITS ---
Subjective Subjective Date of Service: 08/09/23 Interval history: feeling much better, abd pain resolved Mcallister inserted and creatinine is dramatically normalized Physical Exam 2 Vital Signs: Vital Signs: Last Vital Signs Temp 97.6 F 08/09/23 07:50 Pulse 71 08/09/23 07:50 Resp 17 08/09/23 07:50 BP 103/55 L 08/09/23 07:50 Pulse Ox 93 08/09/23 07:50 O2 Del Method Room Air 08/09/23 07:50 O2 Flow Rate 2 08/08/23 07:38 BMI result Body Mass Index 44.8 Const: General: ill appearing Neck: Neck: Yes supple Resp: Auscultation: clear to auscultation bilaterally Cardio: Palpation: no palpable S3 Heart sounds: no rubs GI: Palpation (GI): Soft to palpation Auscultation: normal bowel sounds Neuro: Motor exam (neuro): no asterixis Objective Data Labs 08/09/23 05:46 08/09/23 05:46 Labs: Laboratory Results - last 24 hr 08/08/23 08/09/23 08:15 05:46 WBC 3.6 L RBC 4.20 Hgb 11.7 L Hct 36.0 L MCV 85.7 MCH 27.9 MCHC 32.5 RDW 14.3 Plt Count 229 MPV 10.8 Absolute Nucleated RBC 0.000 Nucleated RBC % (auto) 0.0 PT 35.2 H D INR 2.9 H D Sodium 142 Potassium 4.1 Chloride 103 Carbon Dioxide 29 Anion Gap 14 BUN 9 Creatinine 0.65 Estim Creat Clear Calc 120.4 Estimated GFR > 60 Fasting Glucose 95 Calcium 9.0 Blood Type B Positive Antibody Screen NEGATIVE Procedures Date of Service Date of Service: 08/09/23 Assessment & Plan Assessment and plan (1) DAVID (acute kidney injury): Status: Acute (2) Hyponatremia: Status: Acute (3) Abdominal pain: Status: Acute Plan Acute Kidney Injury from urinary retention Creatinine dramatically returned to baseline from 4.0 down to 0.8 in less than 12 hour Interestingly she is done this before during her previous admission. No evidence of AIN/ GN Midodrine to keep SBP > 90 Avoid hypotension Mcallister catheter WAtch output Urology evaluation Time Spent With Patient Time: Total time managing care of this patient today ____ minutes. Progress Note: Quality Stroke Does the patient have a stroke diagnosis?: No
--- NOTE | 2023-08-09 13:15 | PM.UROCN ---
History of Present Illness Consult details Consult date: 08/09/23 Narrative: cc: Urinary retention Miriam is a pleasant female. Primarily German speaker. Presents with swelling and pain in her lower extremities. Similar symptoms in May. Was found to have acute kidney insult and inability to urinate. Been placed on spironolactone and furosemide. At presentation is found to have difficulty with bladder emptying. Previous treatment of cervical cancer with pelvic radiation. Diet-controlled type 2 diabetes. Has been straight cath with inability to empty bladder. Mcallister catheter placed Recommend follow-up in urology office for catheter removal. Given prior radiation to pelvis and diabetes may have some aspect of neurogenic bladder. Will likely need neurogenic bladder evaluation with urodynamics. Review of Systems Constitutional: Constitutional: Reports as per HPI and Reports no additional constitutional complaints Cardiovascular: Cardiovascular: Reports as per HPI and Reports no additional cardiovascular complaints Respiratory: Respiratory: Reports as per HPI and Reports no additional respiratory complaints Gastrointestinal: Gastrointestinal: Reports as per HPI and Reports no additional gastrointestinal complaints Genitourinary: Genitourinary: Reports as per HPI Musculoskeletal: Musculoskeletal: Reports no additional musculoskeletal complaints and Reports as per HPI Neurologic: Reports system reviewed and no additional complaints, except as documented and Reports as per HPI PMF Past Medical History Medical History (Updated 08/09/23 @ 11:17 by Jamal Zendejas MD) Obstructive uropathy Hyponatremia Cirrhosis of liver with ascites Acute kidney insufficiency UTI (urinary tract infection) Cervical cancer Lymphedema Cardiac arrest DVT (deep venous thrombosis) Social History Social History Household Members: Children Household Members Other:: Son, daughter Housing: Apartment Do you presently have visiting nurse or other home services: Yes ([employer] and Neptali, pt's son and brother are her toll booth operator) Alcohol intake: never Comment: DAUGHTER STAYING OVERNIGHT Patient Tobacco Use Status: Never used Tobacco e-Cigarette/Vaping Use: Never Used Advance Directives Date on File: 01/03/23 service: No Meds Allergies Allergy/AdvReac Type Severity Reaction Status Date / Time No Known Allergies Allergy Verified 08/05/23 14:55 [No Known Allergies*] Active Medications: Current Medications Acetaminophen (Acetaminophen 325 Mg Tablet) 650 mg PO Q6H PRN PRN Reason: Pain, Mild (Pain Scale 1-3) Last Admin: 08/07/23 04:25 Dose: 650 mg Melatonin (Melatonin 3 Mg Tablet) 6 mg PO BEDTIME PRN PRN Reason: Insomnia Last Admin: 08/08/23 22:13 Dose: 6 mg Midodrine (Midodrine Hcl 10 Mg Tablet) 10 mg PO TIDWM [facility] Last Admin: 08/09/23 12:13 Dose: 10 mg Ondansetron HCl (Ondansetron Hcl 4 Mg/2 Ml Vial) 4 mg IVPUSH Q8H PRN PRN Reason: Nausea and Vomiting Last Admin: 08/07/23 15:33 Dose: 4 mg Oxycodone HCl (Oxycodone Hcl Immed Release 5 Mg Tablet) 5 mg PO Q6H PRN PRN Reason: moderate pain Last Admin: 08/08/23 09:13 Dose: 5 mg Polyethylene Glycol (Polyethylene Glycol 3350 17 Gm Powd.Pack) 17 gm PO BID [facility] Last Admin: 08/09/23 08:15 Dose: 17 gm Sodium Chloride (0.9 % Sodium Chloride Flush 3 Ml Syringe) [facility] Last Admin: 08/09/23 08:16 Dose: 3 ml Warfarin Sodium (Warfarin Sodium 3 Mg Tablet) 3 mg PO DAILY@1800 [facility] Home Medications ?Medication ?Instructions ?Recorded ?Confirmed ?Last Taken ?Type bupropion HCl 200 mg tablet,12 hr 200 mg PO BID depressive disorder 01/03/23 08/06/23 07/12/23 History sustained-release citalopram 40 mg tablet 40 mg PO QAM depressive disorder 01/03/23 08/06/23 07/12/23 History hydroxyzine pamoate 25 mg capsule 25 mg PO TID PRN Anxiety 01/03/23 08/06/23 Unknown History loratadine 10 mg tablet 10 mg PO DAILY 01/03/23 08/06/23 07/12/23 History ondansetron HCl 4 mg tablet 4 mg PO BID Nausea And Vomiting 01/03/23 08/06/23 07/12/23 History risperidone microspheres 50 mg/2 50 mg IM Q2W 01/03/23 08/06/23 08/05/23 History mL intramuscular susp,ext release (Risperdal Consta) zolpidem 10 mg tablet 10 mg PO BEDTIME Insomnia 01/03/23 08/06/23 07/12/23 History triamcinolone acetonide 0.025 % 1 appl topical BID PRN Rash 03/11/23 08/06/23 Unknown History topical ointment warfarin 5 mg tablet 5 - 10 mg PO DAILY 03/11/23 08/06/23 07/12/23 History benztropine 0.5 mg tablet 0.5 mg PO BID PRN dystonias 07/13/23 08/06/23 Unknown History nystatin 100,000 unit/gram topical 1 appl topical BID 07/13/23 08/06/23 07/12/23 History powder warfarin 4 mg tablet 4 - 8 mg PO DAILY 07/13/23 08/06/23 08/05/23 History warfarin 6 mg tablet 6 mg PO DAILY 07/13/23 08/06/23 Unknown History furosemide 40 mg tablet 40 mg PO DAILY 08/05/23 08/06/23 Unknown History Physical Exam Vital Signs: Vital Signs: Last Vital Signs Temp 97.1 F 08/09/23 12:00 Pulse 58 08/09/23 12:00 Resp 16 08/09/23 12:00 BP 101/54 L 08/09/23 12:00 Pulse Ox 95 08/09/23 12:00 O2 Del Method Room Air 08/09/23 12:00 O2 Flow Rate 2 08/08/23 07:38 BMI result Body Mass Index 44.8 Const: General: cooperative, healthy appearing, comfortable and no acute distress Orientation/consciousness: patient oriented x3 HEENT: Face and sinus: Yes normal facial exam Mouth: moist mucous membranes Neck: Neck: Yes normal visual inspection, Yes full ROM and Yes trachea midline Chest: Chest palpation & inspection: normal inspection of the chest Resp: Effort & Inspection: normal respiratory effort, able to speak in complete sentences and no respiratory distress GI: Inspection: Yes normal to inspection Back/Spine/Pelvis: Cervical Spine: normal cervical lordosis Thoracic/Lumbar Spine: thoracic and lumbar spine normal to inspection Skin: General skin exam: no rashes or lesions noted Neuro: General: patient oriented x3, tone normal and moves all extremities Extrem: General: Yes normal to inspection and Yes capillary refill normal Results Labs 08/09/23 05:46 08/09/23 05:46 Labs: Abnormal lab results 08/09/23 Range/Units 05:46 WBC 3.6 L (4.8-10.8) X10*3/uL Hgb 11.7 L (12.0-16.0) g/dl Hct 36.0 L (37.0-47.0) % PT 35.2 H D (11.1-13.3) SEC INR 2.9 H D (0.9-1.1) Short CBC 08/09/23 Range/Units 05:46 WBC 3.6 L (4.8-10.8) X10*3/uL Hgb 11.7 L (12.0-16.0) g/dl Hct 36.0 L (37.0-47.0) % Plt Count 229 (160-400) X10*3/uL BMP 08/09/23 05:46 Sodium 142 Potassium 4.1 Chloride 103 Carbon Dioxide 29 BUN 9 Creatinine 0.65 Calcium 9.0 Urine 08/05/23 Range/Units 19:57 Urine Color Yellow Urine Appearance Clear Urine pH 5.5 (5.0-9.0) Ur Specific [place] <= 1.005 (1.005-1.025) Urine Protein Negative (Neg-Trace) mg/dL Urine Glucose (UA) Negative (Negative) mg/dL All other labs normal. Assessment and Plan (1) Obstructive uropathy: Status: Acute Plan Outpatient evaluation for neurogenic bladder Procedures Date of Service Date of Service: 08/09/23
[2023-08-09 15:11] VITALS: BP 95/51; PULSE 56; RESP 18; TEMP 36.3; O2SAT 96
[2023-08-09] MEDS: Warfarin Sodium 3 MG TABLET PO (17:55)
[2023-08-09 19:01] VITALS: BP 94/50; PULSE 77; RESP 18; TEMP 36.3; O2SAT 97
[2023-08-09 23:38] VITALS: BP 103/61; PULSE 62; RESP 16; TEMP 36.2; O2SAT 94
[2023-08-10] MEDS: 0.9 % Sodium Chloride Flush 3 ML SYRINGE IVFLUSH ×2 (00:15→08:49)
[2023-08-10 03:44] VITALS: BP 102/57; PULSE 70; RESP 16; TEMP 36.6; O2SAT 94
[2023-08-10 06:35] LABS: Hematocrit 37.1 % (37.0-47.0); Mean Corpuscular HGB Conc 32.3 g/dl (31.0-35.0); Mean Corpuscular Hemoglobin 27.9 pg (27.0-33.0); Mean Corpuscular Volume 86.3 fL (80.0-98.0); Mean Platelet Volume 10.6 fL (9.4-12.3); Platelet Count 232 X10*3/uL (160-400); Red Cell Distribution Width 14.5 % (11.0-16.0); White Blood Count 3.8 X10*3/uL (4.8-10.8)
[2023-08-10 06:57] LABS: Anion Gap 13 (12-20); Blood Urea Nitrogen 7 mg/dL (9-16); Calcium 8.8 mg/dL (8.4-10.2); Carbon Dioxide 26 mmol/L (22-29); Chloride 105 mmol/L (96-108); Creatinine Clr Calc Pharmacy 118.7; Estimated Glomerular Filt Rate > 60; Glucose Fasting 87 mg/dL (60-99); Magnesium 1.8 mg/dL (1.6-2.6); Sodium 140 mmol/L (135-145)
[2023-08-10 07:07] VITALS: BP 105/55; PULSE 75; RESP 18; TEMP 36.6; O2SAT 94
[2023-08-10] MEDS: Midodrine HCl 10 MG TABLET PO ×2 (08:49→12:04)
[2023-08-10] MEDS: polyethylene glycoL 3350 17 GM POWD.PACK PO (08:49)
--- NOTE | 2023-08-10 10:47 | PM.DS ---
DS: Providers Provider Date of Service: 08/10/23 Date of admission: 08/05/23 19:54 Primary care physician: Kristin Todd MD Consults: 08/05/23 19:54 Consult to Nephrology Routine Consulting Provider: [facility] Reason for consultation: DAVID 08/06/23 07:24 Consult to Gastroenterology Routine Consulting Provider: Felipe Andino Reason for consultation: hepatorenal 08/09/23 09:27 Consult to Urology Routine Consulting Provider: Corbin Hoff Reason for consultation: urinary retention DS: Diagnosis Discharge Diagnosis (1) Obstructive uropathy: Status: Acute (2) DAVID (acute kidney injury): Status: Acute (3) Liver cirrhosis secondary to MALDONADO: Status: Acute (4) Ascites: Status: Acute (5) Hyponatremia: Status: Acute (6) Elevated INR: Status: Acute DS: Summary Hospital Course Hospital Course: Admission note HPI Pt is a 52-year-old female with a PMH significant for liver cirrhosis due to MALDONADO, cervical cancer s/p pelvic radiation, hx of lower extremity DVT on warfarin, diet controlled type 2 diabetes, GERD, and schizophrenia who presents to the ED with?worsening abdominal pain and swelling over the past few days. Patient also complains of increased swelling and pain in her lower extremities, especially left leg over the same period. Patient states has been eating and drinking normally, though notes she feels abdominal pain when urinating. Patient presented to the hospital on 07/12-07/15 with similar complaints. DAVID, ascites, and hyponatremia thought likely due to colonoscopy prep. Upon discharge pt was started on spironolactone and home furosemide was reduced from 40 mg daily to 20 mg daily. Patient reports has been compliant with medications since discharge. Denies fever, chills, nausea, vomiting. No diarrhea. Denies chest pain/pressure, palpitations. Chronic shortness of breath, worse with going upstairs. In the ED pt was tachypneic up to 28, vitals otherwise WNL. Labs were significant for sodium 130, BUN 22, and creatinine 2.45. No leukocytosis. Stable H&H. CXR showed no acute cardiopulmonary disease. CT?of abdomen and pelvis found ascites, liver cirrhosis, engorgement of portal vein and splenic perinephric veins concerning for portal hypertension/portosystemic shunting, small right pleural effusion, excessive amount of stool in the colon suggestive of constipation, and atrophic pancreas. Venous duplex of right lower extremity found no DVT demonstrated, but exam limited due to patient's body habitus with peroneal vein not visualized. Patient was given IVF, albumin, and ceftriaxone. Pt was treated with IVF, ceftriaxone, and albumin. Pt will be admitted to the hospital for treatment further evaluation of DAVID likely secondary to hepatorenal syndrome in the setting of decompensated cirrhosis. Hospital course Decompensated MALDONADO cirrhosis with abdominal pain. observed inpatient on Ceftriaxone for risk of SBP as we were unable to get paracentesis over weekend given that INR too high initially. Her abdominal pain resolved along with as distention imrpoved. Antibiotic was discontinued as Paracentesis was cancelled. To follow as outpatient on her regular medicaitons of Lasix and Spironolactone. She was found in acute kidney injury as a result of obstruction as creatinine improved back to baseline after Mcallister catheter placement. Evaluated by urologist who recommended to keep Mcallister on discharge and to follow him as outpatient for neurogenic bladder work up. She developed postobstructive diuresis with mild hypotension that was evaluated by security coordinator who recommended Midodrine to keep SBP >90. to be discharged on 1 week supplement of Midodrine with a plan to follow with PCP as outpatient and repeat kidney function. She had hyponatremia on admission related to kidney injury that resolved back to normal. Found to have elevated INR of almost 6. improved back to therapeutic range after holding it. to continue home dose Warfarin on discharge. Discharge plan Advance diet as tolerated at home Hold Lasix and Spironolactone for 2 more days Continue Midodrine for 1 more week Follow with dr Hoff as outpatient Increase Protein in your diet. Drink Ensure if available Mcallister catheter - Patient will self manage at home. Time Attestation Discharge Coordination Time (in mins): 38 Quality: Safe Use of Opioids Does Pt have an Active Cancer Diagnosis on the Problem List?: No Quality: Stroke Does the patient have a stroke diagnosis?: No Physical Exam Vital Signs: Vital Signs: Last Vital Signs Temp 97.9 F 08/10/23 07:07 Pulse 75 08/10/23 07:07 Resp 18 08/10/23 07:07 BP 105/55 L 08/10/23 07:07 Pulse Ox 94 08/10/23 07:07 O2 Del Method Room Air 08/10/23 07:07 O2 Flow Rate 2 08/08/23 07:38 BMI result Body Mass Index 44.8 Const: Other: Constitutional : Awake, interactive, not in distress Neck : Normal inspection, Supple Cardiovascular : RRR, no JVP, no lower extremity edema Respiratory : good bilateral air entry, no crackles, wheezes or rhonchi Gastrointestinal: soft, lax, Normal bowel sounds, Non tender, mildly distended with mild ascites collection Skin : Warm, Dry, Mcallister in place Neurological : Alert & oriented x3, No focal deficit DS: Data Data Completed and Pending Completed studies during hospitalization [Text1]: Procedures Drainage of Peritoneal Cavity, Percutaneous Approach (07/13/23) Labs on day of discharge: Laboratory Results - last 24 hr 08/10/23 05:45 WBC 3.8 L RBC 4.30 Hgb 12.0 Hct 37.1 MCV 86.3 MCH 27.9 MCHC 32.3 RDW 14.5 Plt Count 232 MPV 10.6 Absolute Nucleated RBC 0.000 Nucleated RBC % (auto) 0.0 Sodium 140 Potassium 4.0 Chloride 105 Carbon Dioxide 26 Anion Gap 13 BUN 7 L Creatinine 0.66 Estim Creat Clear Calc 118.7 Estimated GFR > 60 Fasting Glucose 87 Calcium 8.[address] scan - abdomen: Radiologist's impression: ITS Impressions Abdomen/Pelvis CT 08/05/23 18:23 IMPRESSION: 1. Exam limited due to lack of contrast. 2. There is ascites. 3. Nodular surface of the liver raising concern for possible liver cirrhosis. 4. Engorgement of the portal vein and splenic perinephric veins raising concern for portal hypertension/portosystemic shunting. 5. Small right pleural effusion. 6. Excess amount of stool in the colon suggests possible constipation. 7. Atrophic pancreas. Chest X-Ray 08/05/23 18:23 IMPRESSION: Unremarkable examination. Venous Duplex 08/05/23 18:29 IMPRESSION: No DVT demonstrated in the right lower extremity. Exam limited due to patient's body habitus, peroneal vein not visualized. If the patient's symptoms persist, followup ultrasound in 5 days 7 days might be of value to exclude proximal propagation from a non-visualized calf vein. Chest X-Ray 08/06/23 21:00 IMPRESSION: Low lung volumes with slightly increased streaky bibasilar opacities, likely atelectasis. Discharge Plan Discharge Anticipated Discharge Date/Time: 08/10/23 12:24 Patient Disposition: Home Health Service Discharge Diagnosis: Acute kidney injury Neurogenic bladder Referrals: [facility] Molina [Outside] - 3-5 Days (Resume services. ) Kristin Todd MD [Primary Care Provider] - 08/18/23 10:30 am (You have a follow up appointment scheduled. If you can not make this appointment call the office and reschedule. ) Discharge Medications: New midodrine 5 mg tablet 5 mg PO TID Qty: 30 0RF Rx Instructions: do not give last dose of day after 6PM or within 4 hrs of bedtime Continued citalopram 40 mg tablet 40 mg PO QAM zolpidem 10 mg tablet 10 mg PO BEDTIME loratadine 10 mg tablet 10 mg PO DAILY hydroxyzine pamoate 25 mg capsule 25 mg PO TID PRN (Reason: Anxiety) bupropion HCl 200 mg tablet sustained-release 12 hr 200 mg PO BID risperidone microspheres [Risperdal Consta] 50 mg/2 mL suspension,extended rel recon 50 mg IM Q2W Rx Instructions: ON FRIDAYS ondansetron HCl 4 mg tablet 4 mg PO BID warfarin 5 mg tablet 5 - 10 mg PO DAILY triamcinolone acetonide 0.025 % ointment 1 appl topical BID PRN (Reason: Rash) benztropine 0.5 mg tablet 0.5 mg PO BID PRN (Reason: dystonias) warfarin 4 mg tablet 4 - 8 mg PO DAILY Rx Instructions: last dose was 8mg per patient warfarin 6 mg tablet 6 mg PO DAILY nystatin 100,000 unit/gram powder 1 appl topical BID polyethylene glycol 3350 [Miralax] 17 gram/dose powder 17 g PO DAILY PRN (Reason: constipation) Qty: 119 0RF Held furosemide 40 mg tablet 40 mg PO DAILY Hold Instructions: Resume on 08/13/23. spironolactone 25 mg Tablet 25 mg PO BID@0900,1800 Qty: 120 0RF Hold Instructions: Resume on 08/13/23. Protocol: Hold for SBP< HOLD for SBP < : 90 Discharge Orders: Discharge Order (Routine); Ordered 08/10/23 Ordered By: Karl Patrick Diet: Low salt diet Activity on Discharge: As tolerated Stand Alone Forms: Patient Portal Discharge page Print Language: Danish Other Ambulatory Orders: Basic Metabolic Panel (Routine) Timeframe: 1 Week Facility: [facility] - Location: Laboratory Ordered By: Karl Patrick Care Plan Goals: Read below Health Concerns: Read below Plan of Treatment: Read below Assessment: Advance your diet as tolerated at home Hold Lasix and Spironolactone for 2 more days Continue Midodrine for 1 more week Follow with dr Hoff as outpatient Increase Protein in your diet. Drink Ensure if available Patient Instructions: Cirrhosis (GEN), Acute Kidney Injury (GEN), Mcallister Catheter Placement and Care (DC), Ascites (GEN), Urinary Leg Bag (GEN), Paracentesis (GEN)
--- NOTE | 2023-08-10 10:49 | P.F2F_ITS ---
Service Date Service Date: 08/10/23 Encounter Date of encounter: 08/10/23 Reasons for Services Signs and symptoms assessed: [place] Reason for longterm: teach disease management and GI/ assessment ([place] catheter - flush w/ 30-60 cc sterile water PRN for increased sediment or blockage, if becomes dislodged may replace w/ same size francisco PRN and routine q 4 weeks) Homebound: Leaving the home is medically contraindicated at this time without the asist of a device and/or another person due th the listed conditions above and below. Reason homebound: unable to drive Certification: Based on the above findings, I certify that this patient is confined to the home and needs intermittent longterm care, physical therapy and/or speech therapy, or continues to need occupational therapy. The patient is under my care, and I have initiated the establishment of the plan of care. The patient will be followed by a physician who will periodically review the plan of care. Time Spent With Patient Time: Total time managing care of this patient today ____ minutes.
[2023-08-10 11:59] VITALS: BP 99/57; PULSE 61; RESP 18; TEMP 36.6; O2SAT 95
--- NOTE | 2023-08-10 13:46 | P.F2F_ITS ---
Service Date Service Date: 08/10/23 Encounter Date of encounter: 08/10/23 Encounter: Medication changes Reasons for Services Signs and symptoms assessed: Medication change Reason for penitentiary: medication management and medication treatment Homebound: Leaving the home is medically contraindicated at this time without the asist of a device and/or another person due th the listed conditions above and below. Reason homebound: unable to drive Certification: Based on the above findings, I certify that this patient is confined to the home and needs intermittent penitentiary care, physical therapy and/or speech therapy, or continues to need occupational therapy. The patient is under my care, and I have initiated the establishment of the plan of care. The patient will be followed by a physician who will periodically review the plan of care. Time Spent With Patient Time: Total time managing care of this patient today ____ minutes.
--- NOTE | 2023-08-10 13:48 | MHC.CM.PN ---
EMR reviewed. Per MD, patient is medically cleared for dc home w/ resumption of OFFICE INSPECTOR and [facility] services. Patient will dc with francisco in place for 1 month. Per Fabby, she is only active w/ behavioral health services and the medical [facility] does not accept her insurance. They are unable to manage francisco. Per RN and MD patient will receive teaching and self manage francisco. CM met with patient via payroll processor. Patient feels comfortable w/ this plan, has had a francisco in the past, her son/ OFFICE INSPECTOR and daughter are well versed in francisco care as well. Son will provide transportation home. RN aware.
== END 2023-08-10 15:39 | disposition home health service (06) | DRG 468 ==
LOC: HO.ED 19:47 → HO.EDOVER 20:19 → HO.S3 23:54
PROVIDERS: Internal Medicine; Registered Nurse Emergency; Admitting Provider Student in an Organized Health Care Education/Training Program; Emergency Provider Emergency Medicine; PCP Pediatrics; Visit Provider Student in an Organized Health Care Education/Training Program
DX: N13.9 Obstructive and reflux uropathy, unspecified (principal); K76.7 Hepatorenal syndrome; N17.0 Acute kidney failure with tubular necrosis; K74.69 Other cirrhosis of liver; I95.9 Hypotension, unspecified; R18.8 Other ascites; E87.1 Hypo-osmolality and hyponatremia; K75.81 Nonalcoholic steatohepatitis (NASH); G47.33 Obstructive sleep apnea (adult) (pediatric); K21.9 Gastro-esophageal reflux disease without esophagitis; R79.1 Abnormal coagulation profile; E11.9 Type 2 diabetes mellitus without complications; F20.9 Schizophrenia, unspecified; E66.01 Morbid (severe) obesity due to excess calories; Z86.718 Personal history of other venous thrombosis and embolism; Z85.41 Personal history of malignant neoplasm of cervix uteri; Z68.41 Body mass index [BMI] 40.0-44.9, adult; Z79.01 Long term (current) use of anticoagulants; Z79.899 Other long term (current) drug therapy
CPT/HCPCS: 36415; 71045; 74176; 80048; 80053; 80076; 81001; 82140; 82150; 82803; 83690; 83735; 83880; 85025; 85027; 85610; 85730; 86850; 86900; 86901; 92950; 93971; 99285; C1758; J0696; J1170; J2354; J2405; P9017; P9047

== ENCOUNTER → 2023-08-05 19:54 | Outpatient (BNV) | payer MEDICAID, SELFPAY | PROVIDERS: Admitting Provider Student in an Organized Health Care Education/Training Program; Emergency Provider Emergency Medicine; PCP Pediatrics; Visit Provider Internal Medicine Gastroenterology | DX: K74.60 Unspecified cirrhosis of liver (principal); R18.8 Other ascites; N17.9 Acute kidney failure, unspecified; K76.7 Hepatorenal syndrome; E87.1 Hypo-osmolality and hyponatremia; K75.81 Nonalcoholic steatohepatitis (NASH) | CPT/HCPCS: 99232 ==

== ENCOUNTER → 2023-08-05 19:54 | Outpatient (BNV) | payer MEDICAID, SELFPAY | PROVIDERS: Admitting Provider Student in an Organized Health Care Education/Training Program; Emergency Provider Emergency Medicine; PCP Pediatrics; Visit Provider Urology | DX: N13.9 Obstructive and reflux uropathy, unspecified (principal) | CPT/HCPCS: 99222 ==

== ENCOUNTER → 2023-08-05 19:54 | Outpatient (BNV) | payer MEDICAID, SELFPAY | PROVIDERS: Admitting Provider Student in an Organized Health Care Education/Training Program; Emergency Provider Emergency Medicine; PCP Pediatrics; Visit Provider Internal Medicine Hypertension Specialist | DX: N17.9 Acute kidney failure, unspecified (principal); E87.1 Hypo-osmolality and hyponatremia; R10.9 Unspecified abdominal pain | CPT/HCPCS: 99232; 99499 ==

== ENCOUNTER → 2023-08-05 19:54 | Outpatient (BNV) | payer MEDICAID, SELFPAY | PROVIDERS: Admitting Provider Student in an Organized Health Care Education/Training Program; Emergency Provider Emergency Medicine; PCP Pediatrics; Visit Provider Student in an Organized Health Care Education/Training Program | DX: N13.9 Obstructive and reflux uropathy, unspecified (principal); N17.9 Acute kidney failure, unspecified; K75.81 Nonalcoholic steatohepatitis (NASH); K74.60 Unspecified cirrhosis of liver; R18.8 Other ascites; E87.1 Hypo-osmolality and hyponatremia; R79.1 Abnormal coagulation profile | CPT/HCPCS: 99223; 99232; 99233; 99239; G0180 ==

== ENCOUNTER 2023-08-28 14:24 | Emergency (ER) | payer MEDICAID, SELFPAY ==
[2023-08-28 15:34] VITALS: BP 116/65; PULSE 78; RESP 18; TEMP 36.3; O2SAT 98; BMI 42.1
--- NOTE | 2023-08-28 15:40 | ED_ITS ---
HPI - General Adult General Chief complaint: General Medical Stated complaint: Blood in catheter Time Seen by Provider: 08/28/23 21:28 Source: patient Mode of arrival: ambulatory Limitations: no limitations History of Present Illness ED Provider: gaetano BLACKMON narrative: 52-year-old female with a PMH significant for liver cirrhosis due to MALDONADO, cervical cancer s/p pelvic radiation, hx of lower extremity DVT on warfarin, diet controlled type 2 diabetes, GERD, and schizophrenia was admitted here and discharged on 08/09 and Mcallister catheter was placed for obstructive uropathy patient noticed blood in the urine today is clearer now. Patient is still constipated not taking her stool softener patient is on Coumadin for last 2 years for DVT in the left leg Related Data Home Medications ?Medication ?Instructions ?Recorded ?Confirmed bupropion HCl 200 mg tablet,12 hr 200 mg PO BID depressive disorder 01/03/23 08/06/23 sustained-release citalopram 40 mg tablet 40 mg PO QAM depressive disorder 01/03/23 08/06/23 hydroxyzine pamoate 25 mg capsule 25 mg PO TID PRN Anxiety 01/03/23 08/06/23 loratadine 10 mg tablet 10 mg PO DAILY 01/03/23 08/06/23 ondansetron HCl 4 mg tablet 4 mg PO BID Nausea And Vomiting 01/03/23 08/06/23 risperidone microspheres 50 mg/2 50 mg IM Q2W 01/03/23 08/06/23 mL intramuscular susp,ext release (Risperdal Consta) zolpidem 10 mg tablet 10 mg PO BEDTIME Insomnia 01/03/23 08/06/23 triamcinolone acetonide 0.025 % 1 appl topical BID PRN Rash 03/11/23 08/06/23 topical ointment warfarin 5 mg tablet 5 - 10 mg PO DAILY 03/11/23 08/06/23 benztropine 0.5 mg tablet 0.5 mg PO BID PRN dystonias 07/13/23 08/06/23 nystatin 100,000 unit/gram topical 1 appl topical BID 07/13/23 08/06/23 powder warfarin 4 mg tablet 4 - 8 mg PO DAILY 07/13/23 08/06/23 warfarin 6 mg tablet 6 mg PO DAILY 07/13/23 08/06/23 furosemide 40 mg tablet 40 mg PO DAILY 08/05/23 08/06/23 Previous Rx's ?Medication ?Instructions ?Recorded polyethylene glycol 3350 17 17 g PO DAILY PRN constipation 07/16/23 gram/dose oral powder (Miralax) #119 grams spironolactone 25 mg tablet 25 mg PO BID@0900,1800 #120 tabs 07/16/23 midodrine 5 mg tablet 5 mg PO TID #30 tabs 08/10/23 cefuroxime axetil 250 mg tablet 250 mg PO BID 7 days #14 tabs 08/28/23 Allergies Allergy/AdvReac Type Severity Reaction Status Date / Time No Known Allergies Allergy Verified 08/28/23 15:34 [No Known Allergies*] Review of Systems 2 Review of Systems: Yes all other systems are reviewed and are negative PMFSH Past Medical History Medical History Liver cirrhosis secondary to MALDONADO Obstructive uropathy Hyponatremia Cirrhosis of liver with ascites Acute kidney insufficiency UTI (urinary tract infection) Cervical cancer Lymphedema Cardiac arrest DVT (deep venous thrombosis) Social History Social History Household Members: Children Household Members Other:: Son, daughter Housing: Apartment Do you presently have visiting nurse or other home services: Yes ([facility] [employer], pt's son and brother are her seater grinder) Alcohol intake: never Comment: DAUGHTER STAYING OVERNIGHT Patient Tobacco Use Status: Never used Tobacco e-Cigarette/Vaping Use: Never Used Advance Directives: Yes Advance Directives on File: Yes Advance Directives Date on File: 01/03/23 service: No Physical Exam ED Vital Signs: Vital Signs - 24 hr 08/28/23 15:34 08/28/23 20:50 08/28/23 21:53 Temperature 97.4 F 97.1 F 98.0 F Pulse Rate 78 74 84 Respiratory Rate 18 16 16 Blood Pressure 116/65 131/80 134/80 Pulse Oximetry 98 99 97 Oxygen Delivery Method Room Air Room Air Room Air 08/28/23 23:29 Temperature 98.0 F Pulse Rate 84 Respiratory Rate 16 Blood Pressure 134/80 Pulse Oximetry 97 Oxygen Delivery Method Room Air BMI result Body Mass Index 42.1 Appearance: Alert. Oriented X3. No acute distress. Eyes: No pallor or icterus ENT: Pharynx normal. Oral Mucosa moist Neck: Normal inspection. Neck supple. CVS: Normal heart rate and rhythm. Pulses normal. Respiratory: No respiratory distress. Equal air entry bilateral, no wheezing/rales/rhonchi Abdomen: Distended no focal tenderness. Bowel sounds are present,, no CVA tenderness ascites++ Skin: Skin warm and dry. Normal skin color. Normal skin turgor. Extremities: +++ b/l lower extremity lymphedema. No calf tenderness Neuro: Oriented X 3. No motor deficit. No sensory deficit.No cerebellar signs , cranial nerves II-XII intact Course Course Course Narrative: RME: RME DOne by Volodymyr. [age] year female with history of cervical cancer receiving treatment placed in the catheter for 1 month today now having profuse bleeding from catheter including dark blood clots. Patient denies any recent trauma or weakness. Labs ordered. Medications Administered Discontinued Medications Generic Name Dose Route Start Last Admin Trade Name Freq PRN Reason Stop Dose Admin Cefuroxime Axetil 250 mg 08/28/23 23:08 08/28/23 23:18 Cefuroxime Axetil 250 Mg Tablet PO 08/28/23 23:09 250 mg ONCE ONE Administration Magnesium Hydroxide 30 ml 08/28/23 22:01 08/28/23 23:18 Milk Of Magnesia 30 Ml Oral.Susp PO 08/28/23 22:02 30 ml ONCE ONE Administration Medical Decision Making Medical Decision Making [facility] Narrative: Patient indwelling Mcallister catheter with hematuria on Coumadin which is getting better now UA showed nitrite positive likely cystitis also will treat with Ceftin advised patient to hold Coumadin case hematuria continues or gets worse Differential Diagnosis Differential Diagnoses: The differential diagnosis associated with the presentation includes Lab Data [facility] Lab Attestation statement: I reviewed the patient's lab results. 08/28/23 15:52 08/28/23 15:52 Labs: Lab Results 08/28/23 08/28/23 Range/Units 15:52 22:18 WBC 4.5 L (4.8-10.8) X10*3/uL RBC 4.96 (4.20-5.50) X10*6/uL Hgb 13.7 (12.0-16.0) g/dl Hct 42.7 (37.0-47.0) % MCV 86.1 (80.0-98.0) fL MCH 27.6 (27.0-33.0) pg MCHC 32.1 (31.0-35.0) g/dl RDW 13.9 (11.0-16.0) % Plt Count 284 (160-400) X10*3/uL MPV 9.8 (9.4-12.3) fL Immature Gran % (Auto) 0.2 (0.0-0.4) % Neut % (Auto) 70.6 (45-73) % Lymph % (Auto) 22.1 (20-40) % Gooding % (Auto) 5.1 (2-11) % Eos % (Auto) 1.6 (0-4) % Baso % (Auto) 0.4 (0-2) % Lymph # (Auto) 1.0 L (1.2-4.9) X10*3/uL Gooding # (Auto) 0.2 (0.1-1.2) X10*3/uL Eos # (Auto) 0.1 (0.0-0.4) X10*3/uL Baso # (Auto) 0.0 (0.0-0.2) X10*3/uL Abs Immat Gran (auto) 0.01 (0.00-0.03) X10*3/uL Absolute Neuts (auto) 3.2 (2.0-8.3) x10*3/uL Absolute Nucleated RBC 0.000 (0.0-0.012) X10*3/uL Nucleated RBC % (auto) 0.0 (0.0-0.2) /100WBC PT 34.4 H (11.1-13.3) SEC INR 2.8 H (0.9-1.1) APTT 45.7 H (26.0-36.8) SEC Sodium 136 (135-145) mmol/L Potassium 4.0 (3.3-5.1) mmol/L Chloride 97 (96-108) mmol/L Carbon Dioxide 29 (22-29) mmol/L Anion Gap 14 (12-20) BUN 10 (9-16) mg/dL Creatinine 0.85 (0.5-1.4) mg/dL Estim Creat Clear Calc 88.7 Estimated GFR > 60 Random Glucose 83 (60-115) mg/dL Calcium 9.5 D (8.4-10.2) mg/dL Total Bilirubin 0.3 (0.0-1.0) mg/dL AST 15 (5-31) U/L ALT 10 (0-31) U/L Alkaline Phosphatase 105 (39-117) U/L Total Protein 7.6 (6.5-8.0) g/dL Albumin 4.6 (3.5-5.0) g/dL Beta HCG, Quant 5 mIU/mL Urine Color RED Urine Appearance Turbid Urine pH 7.0 (5.0-9.0) Ur Specific [place] 1.020 (1.005-1.025) Urine Protein 300 (3+) H (Neg-Trace) mg/dL Urine Glucose (UA) Negative (Negative) mg/dL Urine Ketones Trace (Negative) mg/dL Urine Blood Large (3+) H (Negative) Urine Nitrite Positive H (Negative) Ur Leukocyte Esterase Large (3+) H (Negative) Urine RBC >20 H (0-2) /HPF Urine WBC 21-50 H (0-5) /HPF Ur Squamous Epith Cells 6-10 (0-2) /HPF Urine Bacteria 3+ (None Seen) Hyaline Casts 6-10 (0-2) /LPF Discharge Plan Discharge Clinical Impression: Hematuria, Cystitis Patient Disposition: Home, Self-Care Instructions: Urinary Tract Infection in Women (ED), Hematuria (ED) Additional Instructions: Drink plenty of fluids Take your stool softer daily Antibiotic as prescribed Follow up with urologist as scheduled for further management of Mcallister catheter Hold Coumadin if gross hematuria continues Prescriptions: New cefuroxime axetil 250 mg tablet 250 mg PO BID 7 Days Qty: 14 0RF No Action citalopram 40 mg tablet 40 mg PO QAM zolpidem 10 mg tablet 10 mg PO BEDTIME loratadine 10 mg tablet 10 mg PO DAILY hydroxyzine pamoate 25 mg capsule 25 mg PO TID PRN (Reason: Anxiety) bupropion HCl 200 mg tablet sustained-release 12 hr 200 mg PO BID risperidone microspheres [Risperdal Consta] 50 mg/2 mL suspension,extended rel recon 50 mg IM Q2W Rx Instructions: ON FRIDAYS ondansetron HCl 4 mg tablet 4 mg PO BID warfarin 5 mg tablet 5 - 10 mg PO DAILY triamcinolone acetonide 0.025 % ointment 1 appl topical BID PRN (Reason: Rash) furosemide 40 mg tablet 40 mg PO DAILY Hold Instructions: Resume on 08/13/23. midodrine 5 mg tablet 5 mg PO TID Qty: 30 0RF Rx Instructions: do not give last dose of day after 6PM or within 4 hrs of bedtime benztropine 0.5 mg tablet 0.5 mg PO BID PRN (Reason: dystonias) warfarin 4 mg tablet 4 - 8 mg PO DAILY Rx Instructions: last dose was 8mg per patient warfarin 6 mg tablet 6 mg PO DAILY nystatin 100,000 unit/gram powder 1 appl topical BID spironolactone 25 mg Tablet 25 mg PO BID@0900,1800 Qty: 120 0RF Hold Instructions: Resume on 08/13/23. Protocol: Hold for SBP< HOLD for SBP < : 90 polyethylene glycol 3350 [Miralax] 17 gram/dose powder 17 g PO DAILY PRN (Reason: constipation) Qty: 119 0RF Interventions: ED Discharge Assessment Last Done: 08/28/23 23:29 Discharge Date/Time: 08/28/23 23:36 Print Language: Turkmen
[2023-08-28 15:58] LABS: MANUAL DIFF FLAG NO
[2023-08-28 16:01] LABS: Basophils Percent Auto 0.4 % (0-2); Eosinophils Absolute Auto 0.1 X10*3/uL (0.0-0.4); Eosinophils Percent Auto 1.6 % (0-4); Hematocrit 42.7 % (37.0-47.0); Hemoglobin 13.7 g/dl (12.0-16.0); Imm Gran Abs Auto 0.01 X10*3/uL (0.00-0.03); Imm Gran Pct Auto 0.2 % (0.0-0.4); Lymphocytes Percent Auto 22.1 % (20-40); Mean Corpuscular HGB Conc 32.1 g/dl (31.0-35.0); Mean Corpuscular Hemoglobin 27.6 pg (27.0-33.0); Mean Corpuscular Volume 86.1 fL (80.0-98.0); Mean Platelet Volume 9.8 fL (9.4-12.3); Monocytes Absolute Auto 0.2 X10*3/uL (0.1-1.2); Monocytes Percent Auto 5.1 % (2-11); Neutrophils Absolute Auto 3.2 x10*3/uL (2.0-8.3); Neutrophils Percent Auto 70.6 % (45-73); Platelet Count 284 X10*3/uL (160-400); Red Blood Count 4.96 X10*6/uL (4.20-5.50); Red Cell Distribution Width 13.9 % (11.0-16.0); White Blood Count 4.5 X10*3/uL (4.8-10.8)
[2023-08-28 16:08] LABS: INTERNATIONAL NORM RATIO 2.8 (0.9-1.1); Prothrombin Time 34.4 SEC (11.1-13.3)
[2023-08-28 16:10] LABS: Partial Thromboplastin Time 45.7 SEC (26.0-36.8)
[2023-08-28 16:26] LABS: Alanine Aminotransferase 10 U/L (0-31); Albumin Level 4.6 g/dL (3.5-5.0); Alkaline Phosphatase 105 U/L (39-117); Anion Gap 14 (12-20); Aspartate Amino Transferase 15 U/L (5-31); Bilirubin Total 0.3 mg/dL (0.0-1.0); Blood Urea Nitrogen 10 mg/dL (9-16); Calcium 9.5 mg/dL (8.4-10.2); Carbon Dioxide 29 mmol/L (22-29); Chloride 97 mmol/L (96-108); Creatinine Clr Calc Pharmacy 88.7; Estimated Glomerular Filt Rate > 60; Glucose Random 83 mg/dL (60-115); Sodium 136 mmol/L (135-145); Total Protein 7.6 g/dL (6.5-8.0)
[2023-08-28 16:28] LABS: HCG Quantitative 5 mIU/mL
[2023-08-28 20:50] VITALS: BP 131/80; PULSE 74; RESP 16; TEMP 36.2; O2SAT 99
[2023-08-28 21:53] VITALS: BP 134/80; PULSE 84; RESP 16; TEMP 36.7; O2SAT 97
[2023-08-28 22:25] LABS: Appearance Urine Turbid; Color Urine RED; Glucose Urine UA Negative (Negative); Leukocyte Esterase Urine Large (3+) (Negative); Nitrite Urine Positive (Negative); UMIC TRIGGER UACC YES; Urine Blood Large (3+) (Negative); Urine Ketones Trace mg/dL (Negative); Urine Protein 300 (3+) mg/dL (Neg-Trace)
[2023-08-28 22:28] LABS: UACC Culture Trigger YES; WBC Urine 21-50 /HPF (0-5)
[2023-08-28 22:29] LABS: Bacteria Urine 3+ (None Seen); RBC Urine >20 /HPF (0-2)
[2023-08-28] MEDS: cefuroxime axetiL 250 MG TABLET PO (23:18)
[2023-08-28] MEDS: Milk of Magnesia 30 ML ORAL.SUSP PO (23:18)
[2023-08-28 23:29] VITALS: BP 134/80; PULSE 84; RESP 16; TEMP 36.7; O2SAT 97
== END 2023-08-28 23:36 | disposition home or self-care (01) ==
PROVIDERS: Physician Assistant; Emergency Provider Internal Medicine; PCP Pediatrics
DX: N30.91 Cystitis, unspecified with hematuria (principal); I82.409 Acute embolism and thrombosis of unspecified deep veins of unspecified lower extremity; K59.00 Constipation, unspecified; Z79.01 Long term (current) use of anticoagulants; Z79.899 Other long term (current) drug therapy
CPT/HCPCS: 36415; 80053; 81001; 84702; 85025; 85610; 85730; 87086; 87088; 87186; 99283

== ENCOUNTER 2023-09-05 08:09 | Outpatient (AMB) | payer MEDICAID, SELFPAY ==
--- NOTE | 2023-09-05 08:20 | A.OFFVIS_ITS ---
Intake Visit Reasons: urinary retention/ Voiding trial Intake Note: NEW Patient presents today to established treatment for: Meds- None Allergies to Antibiotic- No Known Allergies Blood Thinner- None Post Void Residual: Flower Cheniller Required: No Accompanied by: Self / Same As Patient Allergies No Known Allergies [No Known Allergies*] Allergy (Verified 09/05/23 08:27) Medication List - Last Reconciled 09/05/23 by Suzie Byers MD benztropine 0.5 mg PO BID PRN bupropion HCl SR 200 mg PO BID cefuroxime axetil 250 mg PO BID 7 days citalopram 40 mg PO QAM furosemide 40 mg PO DAILY hydroxyzine pamoate 25 mg PO TID PRN loratadine 10 mg PO DAILY midodrine 5 mg PO TID nystatin 1 appl topical BID ondansetron HCl 4 mg PO BID polyethylene glycol 3350 (Miralax) 17 grams PO DAILY PRN risperidone microspheres ER (Risperdal Consta) 50 mg IM Q2W spironolactone 25 mg See Protocol PO BID@0900,1800 triamcinolone acetonide 0.025% 1 appl topical BID PRN warfarin 6 mg PO DAILY warfarin 5 - 10 mg PO DAILY warfarin 4 - 8 mg PO DAILY zolpidem 10 mg PO BEDTIME HPI Comments Details: Emilee had urology consultation for urinary retention. Presented to [facility] 08/05/23 with swelling and pain in her lower extremities. Similar symptoms in May. Was found to have acute kidney insult and inability to urinate. Was placed on spironolactone and furosemide. PMH significant for liver cirrhosis due to MALDONADO, cervical cancer s/p pelvic radiation, hx of lower extremity DVT on warfarin, diet controlled type 2 diabetes, GERD, and schizophrenia. She was discharged with Mcallister catheter. She presented today for voiding trial. The patient voided 300 mL, bladder scan PVR 0 mL. The patient was started on cefuroxime b.i.d. on 08/28/2023 catheter associated UTI. Results below. The patient is Djiboutian-speaking and is here with her [id number]. We will arrange for surveillance urine culture in 1-2 weeks. Follow-up with nurse practitioner in 3-4 months check bladder scan PVR and urinary symptoms. [facility] Medical History Liver cirrhosis secondary to MALDONADO Obstructive uropathy Hyponatremia Cirrhosis of liver with ascites Acute kidney insufficiency UTI (urinary tract infection) Cervical cancer Lymphedema Cardiac arrest DVT (deep venous thrombosis) Social History Household Members: Children Household Members Other:: Son, daughter Housing: Apartment Do you presently have visiting nurse or other home services: Yes ([facility] Tues and Fri, pt's son and brother are her occupational health physiotherapist) Alcohol intake: never Comment: DAUGHTER STAYING OVERNIGHT Patient Tobacco Use Status: Never used Tobacco e-Cigarette/Vaping Use: Never Used Advance Directives Date on File: 01/03/23 service: No Review of Systems Const All systems reviewed & are unremarkable except as noted in HPI and below Reports no additional complaints Eyes Reports no additional complaints ENT Reports no additional complaints Card Reports no additional complaints Resp Reports no additional complaints GI Reports no additional complaints Reports as per HPI Musc Reports no additional complaints Skin/Breast Reports system reviewed and no additional complaints, except as documented Neuro Reports no additional complaints Psych Reports no additional complaints Endo Reports no additional complaints Rebel/Lymph Reports no additional complaints Aller/Immun Reports no additional complaints Physical Exam Const General: cooperative, healthy appearing and no acute distress Nutritional Appearance: obese and overweight Orientation/consciousness: patient oriented x3 HEENT Head: Yes normal to inspection, Yes normocephalic and Yes atraumatic Eyes Conjunctivae: conjunctivae normal Neck Neck: Yes normal visual inspection and Yes trachea midline Chest Chest palpation & inspection: normal inspection of the chest Resp Effort & Inspection: normal respiratory effort Cardio Rate: regular rate GI Inspection: Yes normal to inspection Palpation (GI): Soft to palpation Neuro General: patient oriented x3 Psych Appearance: grossly normal Office Procedures Bladder/Catheter Procedure Details: Patient presents to office for voiding trial s/p hospitalization. 120mls sterile water instilled through catheter. 16 fr catheter removed, patient tolerated well. Patient to try to urinate, MA to bladder scan. [id number] of Bladder Procedure code (CPT) selection complete Results Reviewed Results Reviewed: Date of Service: 08/05/23 EXAMINATION: CT abdomen pelvis wo IV con CLINICAL INFORMATION: Reason for Exam abdominal pain and DAVID COMPARISON: Prior CT 07/13/2023 TECHNIQUE: Multidetector volumetric imaging was performed from the superior aspect of the liver through the pubic symphysis noncontrasted CT Sagittal and coronal reformatted images were obtained on the technologist's FINDINGS: LOWER THORAX: Small right pleural effusion, lung bases otherwise are clear. HEPATOBILIARY: Evaluation of the liver is limited due to lack of contrast. Nodular surface raising concern for possible liver cirrhosis. GALLBLADDER: Gallbladder unremarkable. SPLEEN: Spleen is normal in size. PANCREAS: Small atrophic pancreas. STOMACH AND GASTROINTESTINAL TRACT: Stomach is grossly unremarkable. Excess amount of stool in the colon suggests possible constipation. No evidence of bowel obstruction. Appendix not visualized obscured by ascites. ADRENALS: No adrenal nodules. KIDNEYS/URETERS: No hydronephrosis, stones or solid mass lesions. URINARY BLADDER: Partially decompressed. PELVIC VISCERA: There is a free fluid in the dependent portion of the pelvis. PERITONEUM: There is ascites. There is no free air. LYMPH NODES: No lymphadenopathy. VASCULAR:Mild aortic vascular calcification. Engorgement of the portal vein and probably splenic perinephric veins raising concern for portal hypertension/portosystemic shunting. BONES, ABDOMINAL WALL AND SOFT TISSUES: 7. Postsurgical changes anterior abdominal wall hernia repair. IMPRESSION: 1. Exam limited due to lack of contrast. 2. There is ascites. 3. Nodular surface of the liver raising concern for possible liverirrhosis. 4. Engorgement of the portal vein and splenic perinephric veins raising concern for portal hypertension/portosystemic shunting. 5. Small right pleural effusion. 6. Excess amount of stool in the colon suggests possible constipation. 7. Atrophic pancreas. Collected: 08/28/23 Status: COMP Req#: [id number] Received: 08/28/23 Source: Urine Cath Sp Desc: Mcallister Cath Subm Dr: Shawn Isaac Ordered: Urine Culture Procedure Result Verified Urine Culture Final 08/31/23 Organism 1 Serratia marcescens Quant > 100,000 cfu/mL S marcjulianac M.I.C. RX --------- --- Ceftriaxone <=0.25 S Gentamicin <=1 S Levofloxacin <=0.12 S Trimethoprim/Sulfamethoxazole <=20 S Assessment & Plan Assessment & Plan (1) Urinary retention: Code(s): R33.9 - Retention of urine, unspecified Category: Medical (2) UTI (urinary tract infection) due to urinary indwelling catheter: Code(s): T83.511A - Infection and inflammatory reaction due to indwelling urethral catheter, initial encounter; N39.0 - Urinary tract infection, site not specified Category: Medical Plan surveillance urine culture in 1-2 weeks. Follow-up with nurse practitioner in 3-4 months check bladder scan PVR and urinary symptoms Orders: Orders AMB Bladder/Catheter Procedure Today R33.9 - Retention of urine, unspecified Patient Instructions: The patient had an opportunity to ask questions regarding treatment plan. The patient expressed understanding and agreement with the above treatment plan. The patient is aware they should contact our office by phone for worsening of their current condition or the appearance of new symptoms. Compliance is encouraged with any medications and followup testing that is ordered. It is a privilege to be allowed the opportunity to participate in the urologic care of your patient. If you have any questions or concerns regarding treatment for the above conditions please do not hesitate to contact me. The office telephone contact is [phone]. This note is constructed in part using voice recognition software. While every effort has been made to ensure accuracy paralegal assistant errors may have been included. Yours sincerely, Suzie Byers MD Coding Level of Care Code Est Pt Level 4 (79863) Diagnoses Urinary retention R33.9 UTI (urinary tract infection) due to urinary indwelling catheter T83.511A; N39.0 CPT Codes Bladder/Catheter Procedure - CPT: 92014-Oxywuorjrt of Bladder ([id number])
== END 2023-09-05 09:27 | disposition home or self-care (01) ==
PROVIDERS: PCP Pediatrics; Referring Provider Pediatrics; Visit Provider Urology
DX: R33.9 Retention of urine, unspecified (principal); T83.511A Infection and inflammatory reaction due to indwelling urethral catheter, initial encounter; N39.0 Urinary tract infection, site not specified
CPT/HCPCS: 51700; 99213

== ENCOUNTER → 2023-09-05 08:09 | Outpatient (BNVA) | payer MEDICAID, SELFPAY | PROVIDERS: PCP Pediatrics; Visit Provider Urology | DX: T83.511A Infection and inflammatory reaction due to indwelling urethral catheter, initial encounter (principal); N39.0 Urinary tract infection, site not specified; R33.9 Retention of urine, unspecified | CPT/HCPCS: 51700; 99212 ==

== ENCOUNTER 2023-09-13 10:20 | Outpatient (REF) | payer MEDICAID, SELFPAY ==
[2023-09-13 14:51] LABS: Anion Gap 14 (12-20); Blood Urea Nitrogen 14 mg/dL (9-16); Calcium 9.3 mg/dL (8.4-10.2); Carbon Dioxide 30 mmol/L (22-29); Chloride 101 mmol/L (96-108); Estimated Glomerular Filt Rate > 60; Glucose Random 93 mg/dL (60-115); Potassium 4.1 mmol/L (3.3-5.1); Sodium 141 mmol/L (135-145)
== END 2023-09-13 10:21 | disposition home or self-care (01) ==
LOC: HO.CHCLDS 10:20
PROVIDERS: PCP Student in an Organized Health Care Education/Training Program; Referring Provider Urology; Visit Provider Student in an Organized Health Care Education/Training Program
DX: E87.1 Hypo-osmolality and hyponatremia (principal)
CPT/HCPCS: 36415; 80048

== ENCOUNTER 2023-09-16 13:11 | Outpatient (REF) | payer MEDICAID, SELFPAY ==
[2023-09-16 14:22] LABS: Appearance Urine Clear; Color Urine Yellow; Glucose Urine UA Negative (Negative); Leukocyte Esterase Urine Large (3+) (Negative); Nitrite Urine Negative (Negative); PH 7.5 (5.0-9.0); Specific Gravity - Urine <= 1.005 (1.005-1.025); UMIC TRIGGER UA YES; Urine Blood Moderate (2+) (Negative); Urine Ketones Negative (Negative); Urine Protein Negative (Neg-Trace)
[2023-09-16 14:33] LABS: Bacteria Urine Trace (None Seen); Hyaline Casts Urine 0-2 /LPF (0-2); RBC Urine 0-2 /HPF (0-2); Squamous Epithelial Cell Urine 0-2 /HPF (0-2); WBC Urine >50 /HPF (0-5)
== END 2023-09-16 13:12 | disposition home or self-care (01) ==
LOC: HO.CHCLNP 13:11
PROVIDERS: Visit Provider Urology
DX: T83.511A Infection and inflammatory reaction due to indwelling urethral catheter, initial encounter (principal); N39.0 Urinary tract infection, site not specified; R33.9 Retention of urine, unspecified; X58.XXXA Exposure to other specified factors, initial encounter; Y93.9 Activity, unspecified; Y92.9 Unspecified place or not applicable; Y99.9 Unspecified external cause status
CPT/HCPCS: 81001; 87086; 87088; 87186

== ENCOUNTER 2023-09-27 15:08 | Outpatient (REF) | payer MEDICAID, SELFPAY ==
[2023-09-27 18:28] LABS: Anion Gap 15 (12-20); Blood Urea Nitrogen 13 mg/dL (9-16); Calcium 9.2 mg/dL (8.4-10.2); Carbon Dioxide 28 mmol/L (22-29); Chloride 101 mmol/L (96-108); Estimated Glomerular Filt Rate 59; Glucose Random 91 mg/dL (60-115); Hematocrit 40.7 % (37.0-47.0); Hemoglobin 13.3 g/dl (12.0-16.0); Mean Corpuscular HGB Conc 32.7 g/dl (31.0-35.0); Mean Corpuscular Hemoglobin 27.7 pg (27.0-33.0); Mean Corpuscular Volume 84.6 fL (80.0-98.0); Mean Platelet Volume 11.1 fL (9.4-12.3); Platelet Count 307 X10*3/uL (160-400); Potassium 3.8 mmol/L (3.3-5.1); Red Blood Count 4.81 X10*6/uL (4.20-5.50); Red Cell Distribution Width 15.2 % (11.0-16.0); Sodium 140 mmol/L (135-145); White Blood Count 3.9 X10*3/uL (4.8-10.8)
[2023-09-27 18:31] LABS: Partial Thromboplastin Time 53.9 SEC (26.0-36.8)
[2023-09-27 18:35] LABS: Prothrombin Time 65.4 SEC (11.1-13.3)
[2023-09-27 19:14] LABS: INTERNATIONAL NORM RATIO 5.4 (0.9-1.1)
== END 2023-09-27 15:09 | disposition home or self-care (01) ==
LOC: HO.CHCLDS 15:08
PROVIDERS: Visit Provider Internal Medicine Cardiovascular Disease
DX: I82.409 Acute embolism and thrombosis of unspecified deep veins of unspecified lower extremity (principal)
CPT/HCPCS: 36415; 80048; 85027; 85610; 85730

== ENCOUNTER 2023-10-11 18:21 | Inpatient (IN) | payer MEDICAID, SELFPAY ==
--- NOTE | ~2023-10-11 | US_ITS ---
Ultrasound paracentesis History: Ascites. Abdominal pain Risks and benefits and possible complications were discussed with the patient and consent form was signed. A small safe pocket of ascitic fluid was identified in the left lower quadrant using ultrasound guidance, and the overlying skin was marked. The abdomen prepped and draped in sterile fashion. 1% lidocaine was used as a local anesthetic. Using ultrasound guidance, a 22-gauge spinal needle was placed into the ascitic pocket. 15 mL of serous fluid was obtained and sent for analysis. The needle was removed. A few parts representative images from before and after the examination were obtained. The procedure was performed by Wily Lucero PA-C and supervised by Dr. Torres. US/US paracentesis abd w/image Impression: Ultrasound-guided diagnostic paracentesis as described above. No immediate complications
--- NOTE | ~2023-10-11 | CT_ITS ---
EXAMINATION: CT ABDOMEN AND PELVIS WITHOUT CONTRAST CLINICAL INFORMATION: Abdominal pain, history of cirrhosis. COMPARISON: CT abdomen/pelvis 08/05/2023. TECHNIQUE: Multidetector volumetric imaging was performed from the superior aspect of the liver through the pubic symphysis. Sagittal and coronal reformatted images were obtained on the technologist's workstation. This CT examination was performed using dose optimization techniques as appropriate, variously including the following: *Automated exposure control *Adjustment of mA and/or kV according to patient size (this includes techniques or standardized protocols for targeted exams where dose is matched to indication/reason for exam; i.e. extremities or head) *Use of iterative reconstruction technique DLP: 1050 cc mGy-cm FINDINGS: The lack of intravenous contrast limits evaluation of the solid visceral organs including the liver, spleen, pancreas, and kidneys. LUNG BASES: Small right pleural effusion. Partially imaged cardiomegaly. Unchanged asymmetric elevation of the right hemidiaphragm. LIVER, GALLBLADDER, AND BILIARY TREE: Enlarged liver measuring approximately 22.6 cm craniocaudally with suggestion of a micronodular contour. No discrete focal liver mass, although evaluation is limited due to motion and lack of IV contrast. No evidence of calcified cholelithiasis. No significant pericholecystic fat stranding. Pericholecystic free fluid is indeterminate in the context of ascites. No biliary ductal dilatation. PANCREAS: Diffuse parenchymal atrophy. No discrete main ductal dilatation. SPLEEN: Normal size. ADRENAL GLANDS: No adrenal mass. KIDNEYS AND URETERS: No nephrolithiasis or hydronephrosis. No perinephric fat stranding. BLADDER: Decompressed limiting evaluation. Mcallister and balloon in place. GASTROINTESTINAL TRACT: Limited evaluation in the absence of contrast, motion and moderate volume of ascites. No significant dilatation to suspect a high-grade bowel obstruction. Moderate degree of colonic stool burden. Moderate volume of ascites. Redemonstration of some irregularity and fatty haziness of the anterior omental/peritoneal fat, nonspecific could be seen in the context of ascites and portal hypertension, limiting evaluation of peritoneal malignancy. Stable encapsulated peripherally calcified collection in the left flank posterior to the left kidney measuring 4.5 x 1.9 x 4.9 cm. ABDOMINAL WALL: Surgical tacks from prior anterior abdominal hernia repair. Significant diastases of the rectus with protrusion of nonobstructive loops of bowel. Redemonstration of several metallic clips in the left posterior abdominal wall. LYMPH NODES: Limited evaluation due to motion. No bulky lymphadenopathy. VASCULAR: Limited noncontrast examination. Normal caliber of the abdominal aorta. Portosystemic vascular collaterals consistent with portal hypertension. PELVIC VISCERA: Moderate volume of free fluid. OSSEOUS STRUCTURES: Stable compression deformity at L4. Degenerative changes of the spine. Stable deformity and heterogeneity of the upper sacrum, suspicious for chronic insufficiency prior. Stable left greater than right lower SI joint sclerosis. CT/CT abdomen pelvis wo IV con IMPRESSION: Limited examination secondary to motion and lack of IV contrast. 1. Hepatomegaly with suggestion of micronodular contour that could be seen with cirrhosis. Portal hypertension with ascites and portosystemic varices. Small right pleural effusion. 2. Stable encapsulated fluid collection in the left retroperitoneum. 3. Redemonstration of some irregularity and fatty haziness of the anterior omental/peritoneal fat, nonspecific could be seen in the context of ascites and portal hypertension, limiting evaluation of peritoneal malignancy. Attention on follow-up in future examinations recommended.
[2023-10-11 19:11] VITALS: BP 114/75; PULSE 86; RESP 18; TEMP 36.8; O2SAT 96; BMI 42.9
--- NOTE | 2023-10-11 19:12 | ED.ABDPAIN ---
HPI - Abdominal Pain General Chief Complaint: Abdominal Pain Stated Complaint: edema,abd pain,vomiting Time Seen by Provider: 10/11/23 21:04 Source: patient, EMS, old records reviewed and marketing services rep Mode of arrival: EMS Limitations: no limitations History of Present Illness ED Provider: KAMI BLACKMON narrative: 53 yo female with PMH of cirrhosis due to NSAH - cirrhosis, hepatorenal syndrome, DVT on coumadin, DM2, GERD, schizophrenia, cervical cancer s/p radiation, obstructive uropathy in July requiring francisco here with c/o lower suprapubic pain and decreased amounts of urine for the past few days with frequency and pain. No fevers, she has nausea - she feels more swollen and her legs are swollen. Has had to have catheters in past for retention MD elicited complaint: abdominal pain Pertinent past history: other (retention, ascites) Onset (ago): day(s) (few) Pain Consistency: constant Location: suprapubic Severity: moderate Quality: aching and fullness Radiation: none Migration to: no migration Exacerbating factors: other (urination) Relieving factors: nothing Context: history of similar episodes Associated symptoms: nausea and dysuria Related Data Home Medications ?Medication ?Instructions ?Recorded ?Confirmed bupropion HCl 200 mg tablet,12 hr 200 mg PO BID depressive disorder 01/03/23 09/05/23 sustained-release citalopram 40 mg tablet 40 mg PO QAM depressive disorder 01/03/23 09/05/23 hydroxyzine pamoate 25 mg capsule 25 mg PO TID PRN Anxiety 01/03/23 09/05/23 loratadine 10 mg tablet 10 mg PO DAILY 01/03/23 09/05/23 ondansetron HCl 4 mg tablet 4 mg PO BID Nausea And Vomiting 01/03/23 09/05/23 risperidone microspheres 50 mg/2 50 mg IM Q2W 01/03/23 09/05/23 mL intramuscular susp,ext release (Risperdal Consta) zolpidem 10 mg tablet 10 mg PO BEDTIME Insomnia 01/03/23 09/05/23 triamcinolone acetonide 0.025 % 1 appl topical BID PRN Rash 03/11/23 09/05/23 topical ointment warfarin 5 mg tablet 5 - 10 mg PO DAILY 03/11/23 09/05/23 benztropine 0.5 mg tablet 0.5 mg PO BID PRN dystonias 07/13/23 09/05/23 nystatin 100,000 unit/gram topical 1 appl topical BID 07/13/23 09/05/23 powder warfarin 4 mg tablet 4 - 8 mg PO DAILY 07/13/23 09/05/23 warfarin 6 mg tablet 6 mg PO DAILY 07/13/23 09/05/23 furosemide 40 mg tablet 40 mg PO DAILY 08/05/23 09/05/23 Previous Rx's ?Medication ?Instructions ?Recorded polyethylene glycol 3350 17 17 g PO DAILY PRN constipation 07/16/23 gram/dose oral powder (Miralax) #119 grams spironolactone 25 mg tablet 25 mg PO BID@0900,1800 #120 tabs 07/16/23 midodrine 5 mg tablet 5 mg PO TID #30 tabs 08/10/23 cefuroxime axetil 250 mg tablet 250 mg PO BID 7 days #14 tabs 08/28/23 sulfamethoxazole 800 1 tab PO BID 7 days #14 tabs 09/19/23 mg-trimethoprim 160 mg tablet (Bactrim DS) Allergies Allergy/AdvReac Type Severity Reaction Status Date / Time No Known Allergies Allergy Verified 10/11/23 19:17 [No Known Allergies*] Review of Systems Review of Systems Constitutional : No Weight loss, No Fever, No Chills ENT/Mouth : No sore throat, No Rhinorrhea Eyes: No Swelling, No Redness Cardiovascular : No Chest Pain, No SOB, pos Edema Respiratory : No Cough, No Sputum, No Wheezing Gastrointestinal : Positive Nausea, no Vomiting, no Diarrhea, positive abdominal Pain, No Hematochezia, No Melena Genitourinary : pos Dysuria, pos Urinary Frequency, No Hematuria, No Urgency Musculoskeletal : No joint pain, No Myalgias, No Joint Swelling Skin : No Skin Lesions, No rash Neuro : No Weakness, No Numbness, No Dizziness, No Headache Psych : No Anxiety/Panic, No Depression All other systems reviewed and are negative. [facility] Past Medical History Attestation statement: The following information was validated with the patient. Source: old records reviewed Medical History Liver cirrhosis secondary to MALDONADO Obstructive uropathy Hyponatremia Cirrhosis of liver with ascites Acute kidney insufficiency UTI (urinary tract infection) Cervical cancer Lymphedema Cardiac arrest DVT (deep venous thrombosis) Social History Social History Household Members: Children Household Members Other:: Son, daughter Housing: Apartment Do you presently have visiting nurse or other home services: Yes ([facility] Tues and Fri, pt's son and brother are her senior embedded software engineer) Alcohol intake: never Comment: DAUGHTER STAYING OVERNIGHT Patient Tobacco Use Status: Never used Tobacco Smoked in Last 30 Days: No e-Cigarette/Vaping Use: Never Used Advance Directives: Yes Advance Directives on File: Yes Advance Directives Date on File: 01/03/23 Do you have a plan to hurt others: No Plan Patient : No service: No Physical Exam ED Vital Signs: Vital Signs - 24 hr 10/11/23 19:11 10/11/23 19:40 10/11/23 21:48 Temperature 98.2 F 98.3 F 97.9 F Pulse Rate 86 77 99 Respiratory Rate 18 16 17 Blood Pressure 114/75 119/69 104/52 L Pulse Oximetry 96 96 95 Oxygen Delivery Method Room Air Room Air Room Air BMI result Body Mass Index 42.9 Appearance: Alert. Oriented X3. No acute distress. Eyes: Pupils equal, round and reactive to light. ENT: Pharynx normal. Neck: Normal inspection. Neck supple. CVS: Normal heart rate and rhythm. Pulses normal. Respiratory: No respiratory distress. Breath sounds normal. Abdomen: Soft and suprapubic ttp. Moderate to large ascites Skin: Skin warm and dry. Normal skin color. Normal skin turgor. Extremities: 1-2+ pitting bilateral lower extremity edema. No calf ttp Neuro: Oriented X 3. No motor deficit. No sensory deficit. Course Course Course Narrative: This is a Rapid Medical Examination (RME) performed by Ambar Pepe PA-C in triage. Full HPI, ROS, assessment and treatment plan per primary provider in the Main ED. 53 [place]az[place] speaking female with history of DVT on Coumadin, MALDONADO cirrhosis, DM2, schizophrenia, cervical cancer s/p XRT, hx obstructive uropathy who presents to the ER for evaluation of generalized abdominal pain for the last 4 days without Plan: Reevaluation(s) Reevaluation #1: 700 cc in bladder scan francisco ordered Medical Decision Making Medical Decision Making MDM Narrative: 53 yo female with PMH of cirrhosis due to NSAH - cirrhosis, hepatorenal syndrome, DVT on coumadin, DM2, GERD, schizophrenia, cervical cancer s/p radiation, obstructive uropathy in July requiring francisco here with c/o dysuria, frequency, edema, suprapubic pain and fullness - at this time will obtain basic labs, UA, bladder scan if she is retaining will place francisco, start on IVF, one time dose of ceftriaxone and admit. Differential Diagnosis Differential Diagnoses: The differential diagnosis associated with the presentation includes UTI, DAVID, retention, low susp for SBP it is localized, hx of same recently Admission/Observation Consideration of admission/observation: Escalation of care including admission/observation considered admit given DAVID Consult Healthcare Provider Management of the patient was discussed with: Hospitalist (will admit) Lab Data MDM Lab Attestation statement: I reviewed the patient's lab results. 10/11/23 19:45 10/11/23 19:45 Labs: Lab Results 10/11/23 10/11/23 10/11/23 Range/Units 19:45 20:01 21:25 WBC 4.4 L (4.8-10.8) X10*3/uL RBC 4.69 (4.20-5.50) X10*6/uL Hgb 13.0 (12.0-16.0) g/dl Hct 40.1 (37.0-47.0) % MCV 85.5 (80.0-98.0) fL MCH 27.7 (27.0-33.0) pg MCHC 32.4 (31.0-35.0) g/dl RDW 15.4 (11.0-16.0) % Plt Count 221 D (160-400) X10*3/uL MPV 10.0 (9.4-12.3) fL Immature Gran % (Auto) 0.2 (0.0-0.4) % Neut % (Auto) 67.7 (45-73) % Lymph % (Auto) 22.1 (20-40) % [place] % (Auto) 9.1 (2-11) % Eos % (Auto) 0.7 (0-4) % Baso % (Auto) 0.2 (0-2) % Lymph # (Auto) 1.0 L (1.2-4.9) X10*3/uL [place] # (Auto) 0.4 (0.1-1.2) X10*3/uL Eos # (Auto) 0.0 (0.0-0.4) X10*3/uL Baso # (Auto) 0.0 (0.0-0.2) X10*3/uL Abs Immat Gran (auto) 0.01 (0.00-0.03) X10*3/uL Absolute Neuts (auto) 3.0 (2.0-8.3) x10*3/uL Absolute Nucleated RBC 0.000 (0.0-0.012) X10*3/uL Nucleated RBC % (auto) 0.0 (0.0-0.2) /100WBC Sodium 136 (135-145) mmol/L Potassium 4.2 (3.3-5.1) mmol/L Chloride 98 (96-108) mmol/L Carbon Dioxide 26 (22-29) mmol/L Anion Gap 16 (12-20) BUN 21 H (9-16) mg/dL Creatinine 2.25 H (0.5-1.4) mg/dL Estim Creat Clear Calc 33.5 Estimated GFR 23 Random Glucose 97 (60-115) mg/dL Lactic Acid 0.7 (0.5-2.0) mmol/L Calcium 9.1 (8.4-10.2) mg/dL Magnesium 2.4 (1.6-2.6) mg/dL Total Bilirubin 0.5 (0.0-1.0) mg/dL Direct Bilirubin 0.2 (0.0-0.5) mg/dL AST 15 (5-31) U/L ALT 9 (0-31) U/L Alkaline Phosphatase 106 (39-117) U/L Ammonia 14 (13-55) umol/L B-Natriuretic Peptide 96 (<100) pg/mL Total Protein 7.1 (6.5-8.0) g/dL Albumin 4.1 (3.5-5.0) g/dL Lipase 12 (8-78) U/L Urine Color Yellow Urine Appearance Clear Urine pH 6.0 (5.0-9.0) Ur Specific [place] <= 1.005 (1.005-1.025) Urine Protein Trace (Neg-Trace) mg/dL Urine Glucose (UA) Negative (Negative) mg/dL Urine Ketones Negative (Negative) mg/dL Urine Blood Negative (Negative) Urine Nitrite Negative (Negative) Ur Leukocyte Esterase Moderate (2+) H (Negative) Urine RBC 0-2 (0-2) /HPF Urine WBC 11-20 H (0-5) /HPF Ur Squamous Epith Cells 0-2 (0-2) /HPF Urine Bacteria None Seen (None Seen) Hyaline Casts 0-2 (0-2) /LPF Independent Historian Clinical information obtained from an independent historian. History obtained from or confirmed by: Friend External Record Review External record reviewed: Inpatient record Medications Administered Discontinued Medications Generic Name Dose Route Start Last Admin Trade Name Freq PRN Reason Stop Dose Admin Ceftriaxone Sodium 1 gm/ 50 mls @ 100 mls/hr 10/11/23 21:16 10/11/23 21:49 Sodium Chloride IV 10/11/23 21:45 Infused ONCE ONE Infusion Discharge Plan Discharge Clinical Impression: DAVID (acute kidney injury), Acute urinary retention, Dysuria, Anasarca Patient Disposition: Admitted As Inpatient Prescriptions: No Action sulfamethoxazole-trimethoprim [Bactrim DS] 800-160 mg tablet 1 tab PO BID 7 Days Qty: 14 0RF citalopram 40 mg tablet 40 mg PO QAM zolpidem 10 mg tablet 10 mg PO BEDTIME loratadine 10 mg tablet 10 mg PO DAILY hydroxyzine pamoate 25 mg capsule 25 mg PO TID PRN (Reason: Anxiety) bupropion HCl 200 mg tablet sustained-release 12 hr 200 mg PO BID risperidone microspheres [Risperdal Consta] 50 mg/2 mL suspension,extended rel recon 50 mg IM Q2W Rx Instructions: ON FRIDAYS ondansetron HCl 4 mg tablet 4 mg PO BID warfarin 5 mg tablet 5 - 10 mg PO DAILY triamcinolone acetonide 0.025 % ointment 1 appl topical BID PRN (Reason: Rash) furosemide 40 mg tablet 40 mg PO DAILY Hold Instructions: Resume on 08/13/23. midodrine 5 mg tablet 5 mg PO TID Qty: 30 0RF Rx Instructions: do not give last dose of day after 6PM or within 4 hrs of bedtime cefuroxime axetil 250 mg tablet 250 mg PO BID 7 Days Qty: 14 0RF benztropine 0.5 mg tablet 0.5 mg PO BID PRN (Reason: dystonias) warfarin 4 mg tablet 4 - 8 mg PO DAILY Rx Instructions: last dose was 8mg per patient warfarin 6 mg tablet 6 mg PO DAILY nystatin 100,000 unit/gram powder 1 appl topical BID spironolactone 25 mg Tablet 25 mg PO BID@0900,1800 Qty: 120 0RF Hold Instructions: Resume on 08/13/23. Protocol: Hold for SBP< HOLD for SBP < : 90 polyethylene glycol 3350 [Miralax] 17 gram/dose powder 17 g PO DAILY PRN (Reason: constipation) Qty: 119 0RF Print Language: Tamazight
[2023-10-11 19:40] VITALS: BP 119/69; PULSE 77; RESP 16; TEMP 36.8; O2SAT 96
[2023-10-11 19:51] LABS: MANUAL DIFF FLAG NO
[2023-10-11 19:52] LABS: Basophils Percent Auto 0.2 % (0-2); Eosinophils Percent Auto 0.7 % (0-4); Hematocrit 40.1 % (37.0-47.0); Imm Gran Abs Auto 0.01 X10*3/uL (0.00-0.03); Imm Gran Pct Auto 0.2 % (0.0-0.4); Lymphocytes Percent Auto 22.1 % (20-40); Mean Corpuscular HGB Conc 32.4 g/dl (31.0-35.0); Mean Corpuscular Hemoglobin 27.7 pg (27.0-33.0); Mean Corpuscular Volume 85.5 fL (80.0-98.0); Monocytes Absolute Auto 0.4 X10*3/uL (0.1-1.2); Monocytes Percent Auto 9.1 % (2-11); Neutrophils Percent Auto 67.7 % (45-73); Platelet Count 221 X10*3/uL (160-400); Red Blood Count 4.69 X10*6/uL (4.20-5.50); Red Cell Distribution Width 15.4 % (11.0-16.0); White Blood Count 4.4 X10*3/uL (4.8-10.8)
[2023-10-11 20:07] LABS: Alanine Aminotransferase 9 U/L (0-31); Albumin Level 4.1 g/dL (3.5-5.0); Alkaline Phosphatase 106 U/L (39-117); Anion Gap 16 (12-20); Aspartate Amino Transferase 15 U/L (5-31); Bilirubin Direct 0.2 mg/dL (0.0-0.5); Bilirubin Total 0.5 mg/dL (0.0-1.0); Blood Urea Nitrogen 21 mg/dL (9-16); Calcium 9.1 mg/dL (8.4-10.2); Carbon Dioxide 26 mmol/L (22-29); Chloride 98 mmol/L (96-108); Creatinine Clr Calc Pharmacy 33.5; Estimated Glomerular Filt Rate 23; Glucose Random 97 mg/dL (60-115); Lipase 12 U/L (8-78); Potassium 4.2 mmol/L (3.3-5.1); Sodium 136 mmol/L (135-145); Total Protein 7.1 g/dL (6.5-8.0)
[2023-10-11 20:09] LABS: Appearance Urine Clear; Color Urine Yellow; Glucose Urine UA Negative (Negative); Leukocyte Esterase Urine Moderate (2+) (Negative); Nitrite Urine Negative (Negative); Specific Gravity - Urine <= 1.005 (1.005-1.025); UMIC TRIGGER UACC YES; Urine Blood Negative (Negative); Urine Ketones Negative (Negative); Urine Protein Trace mg/dL (Neg-Trace)
[2023-10-11 20:14] LABS: Bacteria Urine None Seen (None Seen); Hyaline Casts Urine 0-2 /LPF (0-2); RBC Urine 0-2 /HPF (0-2); Squamous Epithelial Cell Urine 0-2 /HPF (0-2); UACC Culture Trigger YES
[2023-10-11 21:23] LABS: Magnesium 2.4 mg/dL (1.6-2.6)
[2023-10-11] MEDS: cefTRIAXone sodium 1 GM in 0.9 % Sodium Chloride 50 ML IV (21:31)
[2023-10-11 21:36] LABS: B Type Natriuretic Peptide 96 pg/mL (<100)
[2023-10-11 21:42] LABS: INTERNATIONAL NORM RATIO 2.4 (0.9-1.1); Prothrombin Time 29.3 SEC (11.1-13.3)
[2023-10-11 21:44] LABS: Ammonia 14 umol/L (13-55)
[2023-10-11 21:48] VITALS: BP 104/52; PULSE 99; RESP 17; TEMP 36.6; O2SAT 95
[2023-10-11 21:48] LABS: Lactic Acid 0.7 mmol/L (0.5-2.0)
--- NOTE | 2023-10-11 22:00 | PM.IMHP ---
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 Patient states symptoms started few days ago. Patient states she has been having difficulty with urination. Also complains of intermittent dysuria. No fever, chills, nausea, vomiting. Does endorse that her abdomen has been distended. Is compliant with medications. History of UTIs and Mcallister catheter in the past. No chest discomfort, palpitations, shortness of breath, changes in bowel habits. In the emergency department, creatinine found to be elevated at 2.25. Mcallister catheter was inserted with more than 700 cc of urine. Review of Systems Constitutional: Constitutional: Reports no additional constitutional complaints Cardiovascular: Cardiovascular: Reports no additional cardiovascular complaints Respiratory: Respiratory: Reports no additional respiratory complaints Gastrointestinal: Gastrointestinal: Reports no additional gastrointestinal complaints Genitourinary: Genitourinary: Reports dysuria and Reports urinary hesitancy [facility] Medical History Liver cirrhosis secondary to MALDONADO Obstructive uropathy Hyponatremia Cirrhosis of liver with ascites Acute kidney insufficiency UTI (urinary tract infection) Cervical cancer Lymphedema Cardiac arrest DVT (deep venous thrombosis) Social History Household Members: Children Household Members Other:: Son, daughter Housing: Apartment Do you presently have visiting nurse or other home services: Yes ([employer], pt's son and brother are her overedge machine operator) Alcohol intake: never Comment: DAUGHTER STAYING OVERNIGHT Patient Tobacco Use Status: Never used Tobacco Smoked in Last 30 Days: No e-Cigarette/Vaping Use: Never Used Advance Directives: Yes Advance Directives on File: Yes Advance Directives Date on File: 01/03/23 Do you have a plan to hurt others: No Plan Patient : No service: No Meds Allergies Allergy/AdvReac Type Severity Reaction Status Date / Time No Known Allergies Allergy Verified 10/11/23 19:17 [No Known Allergies*] Active Medications: Current Medications Sodium Chloride (Ns) 1,000 mls @ 100 mls/hr IVCONT .Q10H LAUREN Home Medications ?Medication ?Instructions ?Recorded ?Confirmed ?Last Taken ?Type bupropion HCl 200 mg tablet,12 hr 200 mg PO BID depressive disorder 01/03/23 09/05/23 07/12/23 History sustained-release citalopram 40 mg tablet 40 mg PO QAM depressive disorder 01/03/23 09/05/23 07/12/23 History hydroxyzine pamoate 25 mg capsule 25 mg PO TID PRN Anxiety 01/03/23 09/05/23 Unknown History loratadine 10 mg tablet 10 mg PO DAILY 01/03/23 09/05/23 07/12/23 History ondansetron HCl 4 mg tablet 4 mg PO BID Nausea And Vomiting 01/03/23 09/05/23 07/12/23 History risperidone microspheres 50 mg/2 50 mg IM Q2W 01/03/23 09/05/23 08/05/23 History mL intramuscular susp,ext release (Risperdal Consta) zolpidem 10 mg tablet 10 mg PO BEDTIME Insomnia 01/03/23 09/05/23 07/12/23 History triamcinolone acetonide 0.025 % 1 appl topical BID PRN Rash 03/11/23 09/05/23 Unknown History topical ointment warfarin 5 mg tablet 5 - 10 mg PO DAILY 03/11/23 09/05/23 07/12/23 History benztropine 0.5 mg tablet 0.5 mg PO BID PRN dystonias 07/13/23 09/05/23 Unknown History nystatin 100,000 unit/gram topical 1 appl topical BID 07/13/23 09/05/23 07/12/23 History powder warfarin 4 mg tablet 4 - 8 mg PO DAILY 07/13/23 09/05/23 08/05/23 History warfarin 6 mg tablet 6 mg PO DAILY 07/13/23 09/05/23 Unknown History furosemide 40 mg tablet 40 mg PO DAILY 08/05/23 09/05/23 Unknown History Physical Exam Vital Signs and Narrative: Vital Signs: Last Vital Signs Temp 97.9 F 10/11/23 21:48 Pulse 99 10/11/23 21:48 Resp 17 10/11/23 21:48 BP 104/52 L 10/11/23 21:48 Pulse Ox 95 10/11/23 21:48 O2 Del Method Room Air 10/11/23 21:48 BMI result Body Mass Index 42.9 Middle-aged female lying in bed in no distress Neck supple, no JVD Regular rate and rhythm, S1-S2 heard Regular breath sounds bilaterally, no wheezing or crackles appreciated Abdomen distended, nontender, no guarding, no rigidity Patient is awake, alert and oriented to self, place, time and person ; no focal motor deficit Psych: Normal mood Bilateral nonpitting edema Results Labs 10/11/23 19:45 10/11/23 19:45 Labs: Laboratory Results - last 24 hr 10/11/23 10/11/23 10/11/23 19:45 20:01 21:25 MCV 85.5 MCH 27.7 MCHC 32.4 RDW 15.4 Plt Count 221 D MPV 10.0 Immature Gran % (Auto) 0.2 Neut % (Auto) 67.7 Lymph % (Auto) 22.1 [place] % (Auto) 9.1 Eos % (Auto) 0.7 Baso % (Auto) 0.2 Lymph # (Auto) 1.0 L [place] # (Auto) 0.4 Eos # (Auto) 0.0 Baso # (Auto) 0.0 Abs Immat Gran (auto) 0.01 Absolute Neuts (auto) 3.0 Absolute Nucleated RBC 0.000 Nucleated RBC % (auto) 0.0 PT 29.3 H D INR 2.4 H D Anion Gap 16 Estim Creat Clear Calc 33.5 Estimated GFR 23 Random Glucose 97 Lactic Acid 0.7 Calcium 9.1 Magnesium 2.4 Total Bilirubin 0.5 Direct Bilirubin 0.2 AST 15 ALT 9 Alkaline Phosphatase 106 Ammonia 14 B-Natriuretic Peptide 96 Total Protein 7.1 Albumin 4.1 Lipase 12 Urine Color Yellow Urine Appearance Clear Urine pH 6.0 Ur Specific [place] <= 1.005 Urine Protein Trace Urine Glucose (UA) Negative Urine Ketones Negative Urine Blood Negative Urine Nitrite Negative Ur Leukocyte Esterase Moderate (2+) H Urine RBC 0-2 Urine WBC 11-20 H Ur Squamous Epith Cells 0-2 Urine Bacteria None Seen Hyaline Casts 0-2 Assessment and Plan (1) DAVID (acute kidney injury): Status: Acute (2) Acute urinary retention: Status: Acute Plan This is a 53-year-old female with pertinent history of 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 #. Acute kidney injury stage II, likely post renal: 700 cc urine obtained after placing a Mcallister catheter in the ER. Consult Urology, patient has a history of obstruction. Continue to monitor creatinine and avoid nephrotoxins #. Decompensated MALDONADO cirrhosis: Hold spironolactone and furosemide in the setting of DAVID. Ordered albumin. May need octreotide and midodrine if creatinine does not improve. Will order diagnostic and therapeutic paracentesis. Empiric coverage with ceftriaxone for SBP in the patient with abdominal pain #. Abdominal discomfort: Likely in the setting of urinary retention versus SBP. Abdominal imaging pending. #. ?Acute UTI: Patient states intermittent dysuria and hesitancy. Covering with Rocephin as above. Follow urine cultures #. History of DVT: Hold Coumadin paracentesis #. Schizophrenia: Continue home mood stabilizers Med rec pending DVT prophylaxis: Mechanical Full code Admit as inpatient and will require two night minimum hospital stay for monitoring of kidney function (as above), which is not possible in a lesser acute setting. Specialist consult pending Quality Stroke Does the patient have a stroke diagnosis?: No VTE Prior VTE?: No VTE Risk Level:: Medical - moderate - high VTE Device Contraindication: Treatment Not Indicated VTE Drug Contraindication: N/A - Med Ordered
[2023-10-11] MEDS: Albumin Human 25 % 100 ML 133.33 ML IV ×2 (23:17→23:45)
[2023-10-12] MEDS: 0.9 % Sodium Chloride 1,000 ML 100 ML IVCONT (00:18)
[2023-10-12] MEDS: 0.9 % Sodium Chloride Flush 3 ML SYRINGE IVFLUSH ×2 (00:19→21:42)
[2023-10-12 01:08] VITALS: BP 110/53; PULSE 103; RESP 13; TEMP 36.7; O2SAT 91
--- NOTE | 2023-10-12 02:45 | PC.NURSE ---
Patient oxygen dropped to 82% on room air - good pleth noted. Dr Loyd notified. Placed on 2L NC with improvement to 98%.
[2023-10-12] MEDS: Acetaminophen 325 MG TABLET 650 MG PO ×2 (05:28→12:28)
[2023-10-12 06:15] LABS: MANUAL DIFF FLAG NO
[2023-10-12 06:22] LABS: Basophils Percent Auto 0.6 % (0-2); Eosinophils Percent Auto 0.6 % (0-4); Hematocrit 35.2 % (37.0-47.0); Hemoglobin 11.2 g/dl (12.0-16.0); INTERNATIONAL NORM RATIO 2.4 (0.9-1.1); Imm Gran Abs Auto 0.01 X10*3/uL (0.00-0.03); Imm Gran Pct Auto 0.3 % (0.0-0.4); Lymphocytes Absolute Auto 0.7 X10*3/uL (1.2-4.9); Lymphocytes Percent Auto 21.9 % (20-40); Mean Corpuscular HGB Conc 31.8 g/dl (31.0-35.0); Mean Corpuscular Hemoglobin 27.7 pg (27.0-33.0); Mean Corpuscular Volume 86.9 fL (80.0-98.0); Mean Platelet Volume 10.4 fL (9.4-12.3); Monocytes Absolute Auto 0.3 X10*3/uL (0.1-1.2); Monocytes Percent Auto 9.8 % (2-11); Neutrophils Absolute Auto 2.1 x10*3/uL (2.0-8.3); Neutrophils Percent Auto 66.8 % (45-73); Platelet Count 194 X10*3/uL (160-400); Prothrombin Time 29.1 SEC (11.1-13.3); Red Blood Count 4.05 X10*6/uL (4.20-5.50); Red Cell Distribution Width 15.5 % (11.0-16.0); White Blood Count 3.2 X10*3/uL (4.8-10.8)
[2023-10-12 06:31] LABS: Anion Gap 13 (12-20); Blood Urea Nitrogen 14 mg/dL (9-16); Carbon Dioxide 30 mmol/L (22-29); Chloride 105 mmol/L (96-108); Creatinine Clr Calc Pharmacy 57.1; Estimated Glomerular Filt Rate 42; Glucose Random 89 mg/dL (60-115); Sodium 144 mmol/L (135-145)
[2023-10-12 06:32] VITALS: BP 110/59; PULSE 104; RESP 14; TEMP 36.6; O2SAT 98
[2023-10-12] MEDS: Lidocaine HCl 1 % MPF 5 ML VIAL SUBCUT (09:57)
--- NOTE | 2023-10-12 10:02 | PHA.MEDREC ---
Addendum entered by Anna Roman RPh 10/12/23 10:35: reviewed Addendum entered by Abrahan Alexander 10/12/23 10:22: Daughter called back to confirm the Warfarin dosings and stated that mom had a recent INR test done and yesterday Dr told her to start taking 8mg for 3 days and then increase to 9mg for 2 days and on Tuesday she is getting her INR levels re tested. Original Note: Pharmacy Consult ? Medication Reconciliation Pharmacy has completed the medication reconciliation. Was able to confirm most of the patients medications with patient and bleacher lard. Patient could not remmeber what dosing she is taking for her Warfarin. I called patients daughter Metressily who is also her Health Care Proxy and she did not have her list but will be calling back in a bit with moms list to confirm.
[2023-10-12 10:04] VITALS: BP 103/60; PULSE 87; RESP 18; TEMP 36.2; O2SAT 98
[2023-10-12 10:24] LABS: MN% 79.2 %; PMN% 20.8 %; WBC Peritoneal Fluid 0.957 X10*3/uL
[2023-10-12 10:27] VITALS: BMI 41.6
[2023-10-12 10:30] VITALS: BMI 41.6
[2023-10-12 10:35] LABS: RBC Peritoneal Fluid < 0.002 X10*6/uL
--- NOTE | 2023-10-12 11:02 | MHC.CM.PN ---
Patient lives in an apartment w/ her adult daughter and son, who is also [employer]. Mostly independent w/ ambulation, but uses walker PRN. Son/daughter assist w/ ADL's and francisco care. Active w/ [facility] for SN 2x/wk and med lockbox. PCP Kristin Todd MD HCP on file and verified. DP: Goal is home resume services via family transport. CM will continue to follow.
[2023-10-12 11:06] LABS: BF Shift QC OK YES; Lymphocyte Peritoneal Fl 3 %; Man Diluent Bkgrd OK YES; Monocytes Peritoneal Fl 9 %; Neutrophils Peritoneal Fluid 14 %; Other Peritioneal Fl 74 %
--- NOTE | 2023-10-12 11:56 | P.PNIM_ITS ---
Subjective Subjective Date of Service: 10/12/23 Interval History: imprvoing, Physical Exam 2 Vital Signs: Vital Signs: Last Vital Signs Temp 97.1 F 10/12/23 10:04 Pulse 87 10/12/23 10:04 Resp 18 10/12/23 10:04 BP 103/60 10/12/23 10:04 Pulse Ox 98 10/12/23 10:04 O2 Del Method Room Air 10/12/23 10:04 O2 Flow Rate 1.5 10/12/23 06:32 BMI result Body Mass Index 41.6 General: AO X 3, no acute distress Resp: CTA bilateral, no accessory muscles used CVS: S1,S2,RRR GI: soft, non tender, non distended, francisco in place Neuro: motor grossly intact, alert Psych: appropriate affect, appropriate insight Objective Data Active Medications Acetaminophen (Acetaminophen 325 Mg Tablet) 650 mg PO Q6H PRN PRN Reason: Pain, Mild (Pain Scale 1-3), fever or headache Last Admin: 10/12/23 05:28 Dose: 650 mg Documented By: JAY JAY Benztropine Mesylate (Benztropine Mesylate 0.5 Mg Tablet) 0.5 mg PO BID PRN PRN Reason: dystonias Bupropion HCl (Bupropion Hcl Xl 150 Mg Tab.Er.24h) 450 mg PO DAILY [facility] Calcium Carbonate (Calcium Carbonate 750 Mg Tab.Chew) 750 mg PO Q4H PRN PRN Reason: Heartburn Furosemide (Furosemide 40 Mg Tablet) 40 mg PO DAILY [facility]; Protocol Hydroxyzine HCl (Hydroxyzine Hcl 25 Mg Tablet) 25 mg PO TID PRN PRN Reason: Anxiety Loratadine (Loratadine 10 Mg Tablet) 10 mg PO DAILY [facility] Magnesium Hydroxide (Milk Of Magnesia 30 Ml Oral.Susp) 30 ml PO DAILY PRN PRN Reason: Constipation Melatonin (Melatonin 3 Mg Tablet) 6 mg PO BEDTIME PRN PRN Reason: Insomnia Midodrine (Midodrine Hcl 5 Mg Tablet) 5 mg PO TID [facility] Nystatin (Nystatin Powder 15 Gm Bottle) 1 appl TOPICAL BID [facility]; Protocol Ondansetron HCl (Ondansetron Hcl 4 Mg/2 Ml Vial) 4 mg IVPUSH Q8H PRN PRN Reason: Nausea and Vomiting Ondansetron HCl (Ondansetron Odt 4 Mg Tab.Rapdis) 4 mg TRANSLINGU BID [facility] Polyethylene Glycol (Polyethylene Glycol 3350 17 Gm Powd.Pack) 17 gm PO DAILY PRN PRN Reason: constipation Sodium Chloride (0.9 % Sodium Chloride Flush 3 Ml Syringe) 3 ml IVFLUSH QSHIFT [facility] Last Admin: 10/12/23 09:56 Dose: Not Given Documented By: JOSÉ MIGUEL Non-Admin Reason: IV Running Spironolactone (Spironolactone 25 Mg Tablet) 25 mg PO BID@0900,1800 [facility]; Protocol Warfarin Sodium (Warfarin Sodium 4 Mg Tablet) 8 mg PO WETHFR [facility] Warfarin Sodium (Warfarin Sodium 3 Mg Tablet) 9 mg PO SUSA [facility] Zolpidem Tartrate (Zolpidem Tartrate 5 Mg Tablet) 10 mg PO BEDTIME [facility] Labs 10/12/23 05:27 10/12/23 05:27 Labs: Laboratory Results - last 24 hr 10/11/23 10/11/23 10/11/23 19:45 20:01 21:25 MCV 85.5 MCH 27.7 MCHC 32.4 RDW 15.4 Plt Count 221 D MPV 10.0 Immature Gran % (Auto) 0.2 Neut % (Auto) 67.7 Lymph % (Auto) 22.1 Burt % (Auto) 9.1 Eos % (Auto) 0.7 Baso % (Auto) 0.2 Lymph # (Auto) 1.0 L Burt # (Auto) 0.4 Eos # (Auto) 0.0 Baso # (Auto) 0.0 Abs Immat Gran (auto) 0.01 Absolute Neuts (auto) 3.0 Absolute Nucleated RBC 0.000 Nucleated RBC % (auto) 0.0 PT 29.3 H D INR 2.4 H D Anion Gap 16 Estim Creat Clear Calc 33.5 Estimated GFR 23 Random Glucose 97 Lactic Acid 0.7 Calcium 9.1 Magnesium 2.4 Total Bilirubin 0.5 Direct Bilirubin 0.2 AST 15 ALT 9 Alkaline Phosphatase 106 Ammonia 14 B-Natriuretic Peptide 96 Total Protein 7.1 Albumin 4.1 Lipase 12 Urine Color Yellow Urine Appearance Clear Urine pH 6.0 Ur Specific [place] <= 1.005 Urine Protein Trace Urine Glucose (UA) Negative Urine Ketones Negative Urine Blood Negative Urine Nitrite Negative Ur Leukocyte Esterase Moderate (2+) H Urine RBC 0-2 Urine WBC 11-20 H Ur Squamous Epith Cells 0-2 Urine Bacteria None Seen Hyaline Casts 0-2 Peritoneal WBC Peritoneal RBC Periton Neutrophils Periton Lymphocytes Peritoneal Monocytes Peritoneal Other Cells 10/12/23 10/12/23 05:27 09:20 MCV 86.9 MCH 27.7 MCHC 31.8 RDW 15.5 Plt Count 194 MPV 10.4 Immature Gran % (Auto) 0.3 Neut % (Auto) 66.8 Lymph % (Auto) 21.9 Burt % (Auto) 9.8 Eos % (Auto) 0.6 Baso % (Auto) 0.6 Lymph # (Auto) 0.7 L Burt # (Auto) 0.3 Eos # (Auto) 0.0 Baso # (Auto) 0.0 Abs Immat Gran (auto) 0.01 Absolute Neuts (auto) 2.1 Absolute Nucleated RBC 0.000 Nucleated RBC % (auto) 0.0 PT 29.1 H INR 2.4 H Anion Gap 13 Estim Creat Clear Calc 57.1 Estimated GFR 42 Random Glucose 89 Lactic Acid Calcium 9.0 Magnesium Total Bilirubin Direct Bilirubin AST ALT Alkaline Phosphatase Ammonia B-Natriuretic Peptide Total Protein Albumin Lipase Urine Color Urine Appearance Urine pH Ur Specific [place] Urine Protein Urine Glucose (UA) Urine Ketones Urine Blood Urine Nitrite Ur Leukocyte Esterase Urine RBC Urine WBC Ur Squamous Epith Cells Urine Bacteria Hyaline Casts Peritoneal WBC 0.957 Peritoneal RBC < 0.002 Periton Neutrophils 14 Periton Lymphocytes 3 Peritoneal Monocytes 9 Peritoneal Other Cells 74 Microbiology Microbiology Results: Microbiology 10/11/23 20:15 Urine Culture - Preliminary Urine clean catch - Clean Catch Midstream Culture too young to evaluate. Assessment and Plan (1) Anasarca: Status: Acute Plan 53F PMH MALDONADO cirrhosis, neurogenic bladder with recurrent obstructions, history of dvt on coumadin, dm, gerd, mood disoder, cervical cancer s/p radiation, presented with abd pain. Acute kidney injury due to recurrent urinary obstruction due to neurogenic bladder Francisco placed, renal function improving, abdominal pain resolved, monitor electrolytes, creatinine, follow-up Maldonado cirrhosis with ascites Minimal ascites, continue Aldactone and Lasix, status post low volume diagnostic paracentesis negative for SBP Will DC ceftriaxone History of DVT Continue Coumadin, monitor INR Schizophrenia On risperidone IM as outpatient DVT prophylaxis with Coumadin Full code reason for continued hospitalization: Monitoring postobstructive diuresis Quality Stroke Does the patient have a stroke diagnosis?: No VTE Prior VTE?: No VTE Risk Level:: Medical - moderate - high VTE Device Contraindication: Treatment Not Indicated VTE Drug Contraindication: N/A - Med Ordered
--- NOTE | 2023-10-12 12:15 | P.CDIM_ITS ---
PROVIDER RESPONSE TEXT: To clarify, the appropriate diagnosis supported by the clinical indicators: Obesity QUERY TEXT: PHYSICIAN'S DOCUMENTATION REQUEST Date of Query: 10/12/2023 12:06 PM EDT Patient Name: Emilee Celis Admit Date: 10/12/2023 Dear Jamal Zendejas MD, A review of the medical record indicates additional documentation may be needed. Please review below and update the documentation accordingly. Clinical Indicators: Height: 5ft 2in Weight: 106.3kg BMI: 41.6 Other Clinical Notes Supporting Significance of the BMI: Nursing notes Height and Weight: Extreme obe sity class III If possible, please provide an associated diagnosis related to the abnormal BMI, such as: Morbid obesity Obesity Other (explain) Clinically unable to determine (explain) Thank you, Evelyne Casanova, CCS, CDIS Use of terms such as suspected, likely, concern for, or probable (associated with a specific diagnosi s that is being evaluated, monitored, or treated as if it exists) are acceptable and can be coded in the inpatient se tting, when documented at the time of discharge. Please use your independent medical judgment in providing your response. THIS QUERY IS PART OF THE PERMANENT MEDICAL RECORD
[2023-10-12] MEDS: oxyCODONE HCl Immed Release 5 MG TABLET PO ×2 (12:29→17:37)
[2023-10-12] MEDS: Midodrine HCl 5 MG TABLET PO (14:46)
--- NOTE | 2023-10-12 14:56 | P.CNUR_ITS ---
History of Present Illness Consult details Consult date: 10/12/23 Narrative: Urology consult for urinary retention. Emilee [facility] h/o cervical cancer s/p radiation, h/o liver cirrhosis, presents with ansarca, c/o's dysuria. Francisco placed in ED. Pt's son at the bedside and interprets for her. Emilee has been seen by urology on prior admission for urinary retention and has voiding trial as out patient, she stated she was doing well until about 4 days ago on Tuesday she had abdominal pain and urinary hesitency. Review of Systems 2 Review of Systems: Yes all other systems are reviewed and are negative Constitutional: Constitutional: Reports no additional constitutional complaints Eyes: Eyes: Reports no additional eye complaints ENT: Reports system reviewed and no additional complaints, except as documented Cardiovascular: Cardiovascular: Reports no additional cardiovascular complaints Respiratory: Respiratory: Reports no additional respiratory complaints Gastrointestinal: Gastrointestinal: Reports no additional gastrointestinal complaints Genitourinary: Genitourinary: Reports as per HPI Musculoskeletal: Musculoskeletal: Reports no additional musculoskeletal complaints Integumentary/Breasts: Skin/Breast: Reports system reviewed and no additional complaints, except as docu Neurologic: Reports system reviewed and no additional complaints, except as documented Psychiatric: Psychiatric: Reports no additional psychiatric complaints Endocrine: Endocrine: Reports no additional endocrine complaints Hematologic/Lymphatic: Hematologic/Lymphatic: Reports no additional hematologic/lymphatic complaints Allergic/Immunologic: Allergic/Immunologic: Reports no additional allergic/immunologic complaints [facility] Past Medical History Medical History Liver cirrhosis secondary to MALDONADO Obstructive uropathy Hyponatremia Cirrhosis of liver with ascites Acute kidney insufficiency UTI (urinary tract infection) Cervical cancer Lymphedema Cardiac arrest DVT (deep venous thrombosis) Social History Social History Household Members: Children Household Members Other:: Son, daughter Housing: Apartment Do you presently have visiting nurse or other home services: Yes Alcohol intake: never Comment: DAUGHTER STAYING OVERNIGHT Patient Tobacco Use Status: Never used Tobacco e-Cigarette/Vaping Use: Never Used Advance Directives Date on File: 01/03/23 service: No Meds Allergies Allergy/AdvReac Type Severity Reaction Status Date / Time No Known Allergies Allergy Verified 10/11/23 19:17 [No Known Allergies*] Active Medications: Current Medications Acetaminophen (Acetaminophen 325 Mg Tablet) 650 mg PO Q6H PRN PRN Reason: Pain, Mild (Pain Scale 1-3), fever or headache Last Admin: 10/12/23 12:28 Dose: 650 mg Benztropine Mesylate (Benztropine Mesylate 0.5 Mg Tablet) 0.5 mg PO BID PRN PRN Reason: dystonias Bupropion HCl (Bupropion Hcl Xl 150 Mg Tab.Er.24h) 450 mg PO DAILY [facility] Calcium Carbonate (Calcium Carbonate 750 Mg Tab.Chew) 750 mg PO Q4H PRN PRN Reason: Heartburn Furosemide (Furosemide 40 Mg Tablet) 40 mg PO DAILY [facility]; Protocol Hydroxyzine HCl (Hydroxyzine Hcl 25 Mg Tablet) 25 mg PO TID PRN PRN Reason: Anxiety Loratadine (Loratadine 10 Mg Tablet) 10 mg PO DAILY [facility] Magnesium Hydroxide (Milk Of Magnesia 30 Ml Oral.Susp) 30 ml PO DAILY PRN PRN Reason: Constipation Melatonin (Melatonin 3 Mg Tablet) 6 mg PO BEDTIME PRN PRN Reason: Insomnia Midodrine (Midodrine Hcl 5 Mg Tablet) 5 mg PO TID [facility] Last Admin: 10/12/23 14:46 Dose: 5 mg Nystatin (Nystatin Powder 15 Gm Bottle) 1 appl TOPICAL BID [facility]; Protocol Ondansetron HCl (Ondansetron Hcl 4 Mg/2 Ml Vial) 4 mg IVPUSH Q8H PRN PRN Reason: Nausea and Vomiting Ondansetron HCl (Ondansetron Odt 4 Mg Tab.Rapdis) 4 mg TRANSLINGU BID [facility] Polyethylene Glycol (Polyethylene Glycol 3350 17 Gm Powd.Pack) 17 gm PO DAILY PRN PRN Reason: constipation Sodium Chloride (0.9 % Sodium Chloride Flush 3 Ml Syringe) 3 ml IVFLUSH QSHIFT [facility] Last Admin: 10/12/23 14:27 Dose: Not Given Spironolactone (Spironolactone 25 Mg Tablet) 25 mg PO BID@0900,1800 [facility]; Protocol Warfarin Sodium (Warfarin Sodium 4 Mg Tablet) 8 mg PO DAILY@1800 [facility] Stop: 10/13/23 18:01 Warfarin Sodium (Warfarin Sodium 3 Mg Tablet) 9 mg PO DAILY@1800 [facility] Zolpidem Tartrate (Zolpidem Tartrate 5 Mg Tablet) 10 mg PO BEDTIME [facility] Home Medications ?Medication ?Instructions ?Recorded ?Confirmed ?Last Taken ?Type bupropion HCl 200 mg tablet,12 hr 200 mg PO BID depressive disorder 01/03/23 10/12/23 10/11/23 History sustained-release hydroxyzine pamoate 25 mg capsule 25 mg PO TID PRN Anxiety 01/03/23 10/12/23 10/11/23 History loratadine 10 mg tablet 10 mg PO DAILY 01/03/23 10/12/23 10/11/23 History ondansetron HCl 4 mg tablet 4 mg PO BID Nausea And Vomiting 01/03/23 10/12/23 10/11/23 History risperidone microspheres 50 mg/2 50 mg IM Q2W 01/03/23 10/12/23 09/30/23 History mL intramuscular susp,ext release (Risperdal Consta) zolpidem 10 mg tablet 10 mg PO BEDTIME Insomnia 01/03/23 10/12/23 10/11/23 History triamcinolone acetonide 0.025 % 1 appl topical BID PRN Rash 03/11/23 10/12/23 10/11/23 History topical ointment benztropine 0.5 mg tablet 0.5 mg PO BID PRN dystonias 07/13/23 10/12/23 10/11/23 History nystatin 100,000 unit/gram topical 1 appl topical BID 07/13/23 10/12/23 10/11/23 History powder warfarin 4 mg tablet 8 mg PO WETHFR 07/13/23 10/12/23 10/11/23 History warfarin 6 mg tablet 9 mg PO SUSA 07/13/23 10/12/23 10/11/23 History furosemide 40 mg tablet 40 mg PO DAILY 08/05/23 10/12/23 10/11/23 History Physical Exam 2 Vital Signs: Vital Signs: Last Vital Signs Temp 97.1 F 10/12/23 10:04 Pulse 87 10/12/23 10:04 Resp 18 10/12/23 10:04 BP 103/60 10/12/23 10:04 Pulse Ox 98 10/12/23 10:04 O2 Del Method Room Air 10/12/23 10:04 O2 Flow Rate 1.5 10/12/23 06:32 BMI result Body Mass Index 41.6 Const: General: cooperative, healthy appearing and no acute distress O rientation/consciousness: patient oriented x3 HEENT: Head: Yes normal to inspection, Yes normocephalic and Yes atraumatic Eyes: Conjunctivae: conjunctivae normal Neck: Neck: Yes normal visual inspection and Yes trachea midline Chest: Chest palpation & inspection: normal inspection of the chest Resp: Effort & Inspection: normal respiratory effort Cardio: Rate: regular rate GI: Inspection: Yes normal to inspection Palpation (GI): Soft to palpation Neuro: General: patient oriented x3 Psych: Appearance: grossly normal Results Labs 10/12/23 05:27 10/12/23 05:27 Labs: Abnormal lab results 10/11/23 10/11/23 10/11/23 Range/Units 19:45 20:01 21:25 WBC 4.4 L (4.8-10.8) X10*3/uL RBC (4.20-5.50) X10*6/uL Hgb (12.0-16.0) g/dl Hct (37.0-47.0) % Lymph # (Auto) 1.0 L (1.2-4.9) X10*3/uL PT 29.3 H D (11.1-13.3) SEC INR 2.4 H D (0.9-1.1) Carbon Dioxide (22-29) mmol/L BUN 21 H (9-16) mg/dL Creatinine 2.25 H (0.5-1.4) mg/dL Ur Leukocyte Esterase Moderate (2+) H (Negative) Urine WBC 11-20 H (0-5) /HPF 10/12/23 Range/Units 05:27 WBC 3.2 L (4.8-10.8) X10*3/uL RBC 4.05 L (4.20-5.50) X10*6/uL Hgb 11.2 L (12.0-16.0) g/dl Hct 35.2 L (37.0-47.0) % Lymph # (Auto) 0.7 L (1.2-4.9) X10*3/uL PT 29.1 H (11.1-13.3) SEC INR 2.4 H (0.9-1.1) Carbon Dioxide 30 H (22-29) mmol/L BUN (9-16) mg/dL Creatinine (0.5-1.4) mg/dL Ur Leukocyte Esterase (Negative) Urine WBC (0-5) /HPF Short CBC 10/11/23 10/12/23 Range/Units 19:45 05:27 WBC 4.4 L 3.2 L (4.8-10.8) X10*3/uL Hgb 13.0 11.2 L (12.0-16.0) g/dl Hct 40.1 35.2 L (37.0-47.0) % Plt Count 221 D 194 (160-400) X10*3/uL BMP 10/11/23 10/12/23 19:45 05:27 Sodium 136 144 Potassium 4.2 4.0 Chloride 98 105 Carbon Dioxide 26 30 H BUN 21 H 14 Creatinine 2.25 H 1.32 Calcium 9.1 9.0 Liver Function 10/11/23 Range/Units 19:45 Total Bilirubin 0.5 (0.0-1.0) mg/dL Direct Bilirubin 0.2 (0.0-0.5) mg/dL AST 15 (5-31) U/L ALT 9 (0-31) U/L Alkaline Phosphatase 106 (39-117) U/L Albumin 4.1 (3.5-5.0) g/dL Urine 10/11/23 Range/Units 20:01 Urine Color Yellow Urine Appearance Clear Urine pH 6.0 (5.0-9.0) Ur Specific [place] <= 1.005 (1.005-1.025) Urine Protein Trace (Neg-Trace) mg/dL Urine Glucose (UA) Negative (Negative) mg/dL All other labs normal. Assessment and Plan (1) Acute urinary retention: Status: Acute (2) DAVID (acute kidney injury): Status: Acute (3) Anasarca: Status: Acute (4) Dysuria: Status: Acute Plan Francisco placed in ED. Renal function improved UA suggestive of UTI, pt on IV Abx, urine c/s pending Recommend trial of flomax 0.4 mg daily and voiding trial prior to discharge, if she fails voiding trial would discharge with francisco and outpt fu with Urology for voiding trial in 7-10 days Procedures Date of Service Date of Service: 10/12/23
[2023-10-12 15:19] VITALS: BP 96/51; PULSE 83; RESP 18; TEMP 36.1; O2SAT 97
[2023-10-12] MEDS: Warfarin Sodium 4 MG TABLET 8 MG PO (17:37)
[2023-10-12] MEDS: Spironolactone 25 MG TABLET PO (17:37)
[2023-10-12 18:56] VITALS: BP 96/52; PULSE 95; RESP 18; TEMP 36.6; O2SAT 97
[2023-10-12] MEDS: Zolpidem Tartrate 5 MG TABLET 10 MG PO (21:38)
[2023-10-12] MEDS: Nystatin Powder 15 GM BOTTLE 1 APPL TOPICAL (21:39)
[2023-10-12] MEDS: Ondansetron ODT 4 MG TAB.RAPDIS TRANSLINGU (21:39)
[2023-10-13 04:00] VITALS: BP 97/60; PULSE 75; RESP 16; TEMP 36.2; O2SAT 94
[2023-10-13 06:07] LABS: Hematocrit 34.2 % (37.0-47.0); Hemoglobin 10.7 g/dl (12.0-16.0); Mean Corpuscular HGB Conc 31.3 g/dl (31.0-35.0); Mean Corpuscular Hemoglobin 27.8 pg (27.0-33.0); Mean Corpuscular Volume 88.8 fL (80.0-98.0); Mean Platelet Volume 10.4 fL (9.4-12.3); Platelet Count 205 X10*3/uL (160-400); Red Blood Count 3.85 X10*6/uL (4.20-5.50); Red Cell Distribution Width 15.9 % (11.0-16.0); White Blood Count 3.3 X10*3/uL (4.8-10.8)
[2023-10-13 06:18] LABS: Anion Gap 12 (12-20); Blood Urea Nitrogen 8 mg/dL (9-16); Calcium 8.7 mg/dL (8.4-10.2); Carbon Dioxide 25 mmol/L (22-29); Chloride 109 mmol/L (96-108); Creatinine Clr Calc Pharmacy 110.6; Estimated Glomerular Filt Rate > 60; Glucose Fasting 87 mg/dL (60-99); Potassium 3.9 mmol/L (3.3-5.1); Sodium 142 mmol/L (135-145)
[2023-10-13 07:25] VITALS: BP 92/55; PULSE 77; RESP 18; TEMP 36.3; O2SAT 95
[2023-10-13] MEDS: 0.9 % Sodium Chloride Flush 3 ML SYRINGE IVFLUSH (07:28)
[2023-10-13 08:19] LABS: INTERNATIONAL NORM RATIO 2.1 (0.9-1.1); Prothrombin Time 25.6 SEC (11.1-13.3)
[2023-10-13] MEDS: buPROPion HCl XL 150 MG TAB.ER.24H 450 MG PO (08:34)
[2023-10-13] MEDS: Midodrine HCl 5 MG TABLET PO (08:34)
[2023-10-13] MEDS: Furosemide 40 MG TABLET PO (08:34)
[2023-10-13] MEDS: Ondansetron ODT 4 MG TAB.RAPDIS TRANSLINGU (08:34)
[2023-10-13] MEDS: Spironolactone 25 MG TABLET PO (08:34)
[2023-10-13] MEDS: Tamsulosin HCL 0.4 MG CAPSULE PO (08:34)
[2023-10-13] MEDS: Loratadine 10 MG TABLET PO (08:34)
[2023-10-13] MEDS: cefTRIAXone sodium 1 GM in 0.9 % Sodium Chloride 50 ML IV (08:35)
[2023-10-13] MEDS: Nystatin Powder 15 GM BOTTLE 1 APPL TOPICAL (09:16)
--- NOTE | 2023-10-13 10:58 | PM.DS ---
DS: Providers Provider Date of Service: 10/13/23 Date of admission: 10/11/23 21:58 Primary care physician: Kristin Todd MD Consults: 10/11/23 22:21 Consult to Urology Routine Consulting Provider: [facility] [place] Urology Services Reason for consultation: urinary retention DS: Diagnosis Discharge Diagnosis (1) Acute urinary retention: Status: Acute (2) DAVID (acute kidney injury): Status: Acute (3) Anasarca: Status: Acute (4) Dysuria: Status: Acute DS: Summary Hospital Course Hospital Course: from initial hpi: 53-year-old female with pertinent history of cirrhosis due to MALDONADO, cervical cancer status post radiation, history of DVT on Coumadin, [id number] diabetes mellitus, gastroesophageal reflux disease, mood disorder presents to the emergency department for evaluation of abdominal pain. Patient states symptoms started few days ago. Patient states she has been having difficulty with urination. Also complains of intermittent dysuria. No fever, chills, nausea, vomiting. Does endorse that her abdomen has been distended. Is compliant with medications. History of UTIs and Francisco catheter in the past. No chest discomfort, palpitations, shortness of breath, changes in bowel habits. In the emergency department, creatinine found to be elevated at 2.25. Francisco catheter was inserted with more than 700 cc of urine. hospital course: Patient was admitted for acute kidney injury due to recurrent urinary obstruction due to neurogenic bladder. Francisco was placed and renal function returned to normal. Abdominal pain resolved. Was seen by Urology recommended starting Flomax. Patient will be discharged home with Francisco and follow up with Urology for voiding trial. For MALDONADO cirrhosis with ascites, ascites was minimal was continue Aldactone Lasix did have diagnostic paracentesis which was negative for SBP. For possible urinary tract infection patient was empirically treated with ceftriaxone and will be discharged home on 5 more days of cefuroxime. Urine culture still pending and should be followed up outpatient. For history of DVT she was continued on Coumadin. For schizophrenia she will continue on risperidone IM as outpatient. Patient is feeling back to baseline and will be discharged home. Time Attestation Discharge Coordination Time (in mins): 35 Quality: Safe Use of Opioids Does Pt have an Active Cancer Diagnosis on the Problem List?: No Quality: Stroke Does the patient have a stroke diagnosis?: No Physical Exam Vital Signs: Vital Signs: Last Vital Signs Temp 97.3 F 10/13/23 07:25 Pulse 77 10/13/23 07:25 Resp 18 10/13/23 07:25 BP 92/55 L 10/13/23 07:25 Pulse Ox 95 10/13/23 07:25 O2 Del Method Room Air 10/13/23 07:25 O2 Flow Rate 1.5 10/12/23 06:32 BMI result Body Mass Index 41.6 General: AO X 3, no acute distress Resp: CTA bilateral, no accessory muscles used CVS: S1,S2,RRR GI: soft, non tender, non distended Neuro: motor grossly intact, alert Psych: appropriate affect, appropriate insight DS: Data Data Completed and Pending Completed studies during hospitalization [Text1]: Procedures Drainage of Peritoneal Cavity, Percutaneous Approach (07/13/23) Transfusion of Nonautologous Frozen Plasma into Peripheral Vein, Percutaneous Approach (08/05/23) Labs on day of discharge: Laboratory Results - last 24 hr 10/12/23 10/13/23 10/13/23 09:20 05:37 07:49 WBC 3.3 L RBC 3.85 L Hgb 10.7 L Hct 34.2 L MCV 88.8 MCH 27.8 MCHC 31.3 RDW 15.9 Plt Count 205 MPV 10.4 Absolute Nucleated RBC 0.000 Nucleated RBC % (auto) 0.0 PT 25.6 H INR 2.1 H Sodium 142 Potassium 3.9 Chloride 109 H Carbon Dioxide 25 Anion Gap 12 BUN 8 L Creatinine 0.67 Estim Creat Clear Calc 110.6 Estimated GFR > 60 Fasting Glucose 87 Calcium 8.7 Periton Neutrophils 14 Periton Lymphocytes 3 Peritoneal Monocytes 9 Peritoneal Other Cells 74 Preliminary micro results at discharge 10/11/23 21:25 Blood Culture - Preliminary Blood - Venous No growth after 24 hours. 10/11/23 21:27 Blood Culture - Preliminary Blood - Venous No growth after 24 hours. 10/11/23 20:15 Urine Culture - Preliminary Urine clean catch - Clean Catch Midstream Culture too young to evaluate. Discharge Plan Discharge Anticipated Discharge Date/Time: 10/13/23 10:51 Patient Disposition: Home, Self-Care Discharge Diagnosis: david, urinary retnetnion Referrals: Suzie Byers MD [Physician] - 1 Week Kristin Todd MD [Primary Care Provider] - 1 Week Discharge Medications: New tamsulosin 0.4 mg Capsule 0.4 mg PO DAILY Qty: 90 0RF cefuroxime axetil 500 mg tablet 500 mg PO BID Qty: 10 0RF Continued zolpidem 10 mg tablet 10 mg PO BEDTIME loratadine 10 mg tablet 10 mg PO DAILY hydroxyzine pamoate 25 mg capsule 25 mg PO TID PRN (Reason: Anxiety) bupropion HCl 200 mg tablet sustained-release 12 hr 200 mg PO BID risperidone microspheres [Risperdal Consta] 50 mg/2 mL suspension,extended rel recon 50 mg IM Q2W Rx Instructions: ON FRIDAYS ondansetron HCl 4 mg tablet 4 mg PO BID triamcinolone acetonide 0.025 % ointment 1 appl topical BID PRN (Reason: Rash) furosemide 40 mg tablet 40 mg PO DAILY Hold Instructions: Resume on 08/13/23. midodrine 5 mg tablet 5 mg PO TID Qty: 30 0RF Rx Instructions: do not give last dose of day after 6PM or within 4 hrs of bedtime benztropine 0.5 mg tablet 0.5 mg PO BID PRN (Reason: dystonias) warfarin 4 mg tablet 8 mg PO WETHFR Rx Instructions: last dose was 8mg per patient warfarin 6 mg tablet 9 mg PO SUSA nystatin 100,000 unit/gram powder 1 appl topical BID spironolactone 25 mg Tablet 25 mg PO BID@0900,1800 Qty: 120 0RF Hold Instructions: Resume on 08/13/23. Protocol: Hold for SBP< HOLD for SBP < : 90 polyethylene glycol 3350 [Miralax] 17 gram/dose powder 17 g PO DAILY PRN (Reason: constipation) Qty: 119 0RF Discharge Orders: Discharge Order (Routine); Ordered 10/13/23 Ordered By: Jamal Zendejas Diet: Advance to usual diet Activity on Discharge: As tolerated Stand Alone Forms: Patient Portal Discharge page Print Language: Wolof Care Plan Goals: recovery Health Concerns: urinary retention Plan of Treatment: 5 days ceftin, flomax, continue francisco, follow up with urology Assessment: see above
--- NOTE | 2023-10-13 11:03 | MHC.CM.PN ---
Per MD rounds patient medically cleared for dc home w/ resumption of [facility] services. Patient to dc w/ francisco in place. Son/daughter will manage, as Fabby is unable to (current nursing services are w/ mental health program). [facility] aware of dc. Son will transport home @ 1pm. RN aware.
[2023-10-13 11:22] LABS: pH Peritoneal Fluid 7.63
[2023-10-17 14:11] LABS: Albumin Peritoneal Fluid 1.7; Glucose Peritoneal Fluid 123; LDH Peritoneal Fluid 118; Total Protein Peritoneal Fluid 2.4
== END 2023-10-13 12:59 | disposition home or self-care (01) | DRG 468 ==
LOC: HO.ED 21:04 → HO.EDOVER 22:06 → HO.S3 10-12 07:47
PROVIDERS: Admitting Provider Student in an Organized Health Care Education/Training Program; Emergency Provider Emergency Medicine; PCP Pediatrics; Visit Provider Internal Medicine
DX: N13.9 Obstructive and reflux uropathy, unspecified (principal); R18.8 Other ascites; K74.69 Other cirrhosis of liver; K75.81 Nonalcoholic steatohepatitis (NASH); E66.9 Obesity, unspecified; F20.9 Schizophrenia, unspecified; N31.9 Neuromuscular dysfunction of bladder, unspecified; N39.0 Urinary tract infection, site not specified; Z86.718 Personal history of other venous thrombosis and embolism; Z68.41 Body mass index [BMI] 40.0-44.9, adult; Z85.41 Personal history of malignant neoplasm of cervix uteri; Z79.01 Long term (current) use of anticoagulants; Z79.899 Other long term (current) drug therapy
CPT/HCPCS: 36415; 49083; 74176; 80048; 80076; 81001; 82042; 82140; 82945; 83605; 83615; 83690; 83735; 83880; 83986; 84157; 85025; 85027; 85610; 87040; 87070; 87073; 87086; 87147; 87205; 89051; 99221; 99285; C1758; J0696; P9047

== ENCOUNTER 2023-10-11 21:58 | Outpatient (BNV) | payer MEDICAID, SELFPAY | END 2023-10-12 09:00 | PROVIDERS: Admitting Provider Student in an Organized Health Care Education/Training Program; Emergency Provider Emergency Medicine; PCP Pediatrics; Visit Provider Physician Assistant Surgical | DX: R18.8 Other ascites (principal) | CPT/HCPCS: 49083 ==

== ENCOUNTER → 2023-10-11 21:58 | Outpatient (BNV) | payer MEDICAID, SELFPAY | PROVIDERS: Admitting Provider Student in an Organized Health Care Education/Training Program; Emergency Provider Emergency Medicine; PCP Pediatrics; Visit Provider Student in an Organized Health Care Education/Training Program | DX: R33.8 Other retention of urine (principal); N17.9 Acute kidney failure, unspecified; R60.1 Generalized edema; R30.0 Dysuria | CPT/HCPCS: 99223; 99232; 99239 ==

== ENCOUNTER → 2023-10-11 21:58 | Outpatient (BNV) | payer MEDICAID, SELFPAY | PROVIDERS: Admitting Provider Student in an Organized Health Care Education/Training Program; Emergency Provider Emergency Medicine; PCP Pediatrics; Visit Provider Urology | DX: R33.8 Other retention of urine (principal); N17.9 Acute kidney failure, unspecified; R60.1 Generalized edema; R30.0 Dysuria | CPT/HCPCS: 99222 ==

== ENCOUNTER → 2023-10-20 09:24 | Outpatient (BNVA) | payer MEDICAID, SELFPAY | PROVIDERS: PCP Pediatrics; Visit Provider Urology | DX: R33.8 Other retention of urine (principal) | CPT/HCPCS: 51700; 51798 ==

== ENCOUNTER 2023-10-25 15:00 | Outpatient (REF) | payer MEDICAID, SELFPAY ==
[2023-10-25 18:15] LABS: Anion Gap 14 (12-20); Blood Urea Nitrogen 11 mg/dL (9-16); Calcium 9.3 mg/dL (8.4-10.2); Carbon Dioxide 30 mmol/L (22-29); Chloride 99 mmol/L (96-108); Estimated Glomerular Filt Rate > 60; Potassium 3.5 mmol/L (3.3-5.1); Sodium 139 mmol/L (135-145)
== END 2023-10-25 15:01 | disposition home or self-care (01) ==
LOC: HO.CHCLDS 15:00
PROVIDERS: Visit Provider Internal Medicine Nephrology
DX: Z13.89 Encounter for screening for other disorder (principal)
CPT/HCPCS: 36415; 80051; 82310; 82565; 84520

== ENCOUNTER 2024-01-10 15:21 | Inpatient (IN) | payer MEDICAID, SELFPAY ==
--- NOTE | ~2024-01-10 | US_ITS ---
EXAMINATION: US RETROPERITONEAL COMPLETE (RENAL) CLINICAL INFORMATION: Acute kidney injury (DAVID). COMPARISON: CT abdomen and pelvis 01/10/2024. Renal ultrasound 03/11/2023. Ultrasound abdomen limited 03/11/2023. TECHNIQUE: Real-time imaging of the kidneys and bladder. FINDINGS: RIGHT KIDNEY: 9.7 x 4.2 x 5.6 cm (SAG x AP x TRV). The kidney is normal in size, contour, and echogenicity. Renal cortical thickness is normal. No calculi or focal parenchymal lesions. No hydronephrosis. LEFT KIDNEY: 10.7 x 6.0 x 3.4 cm (SAG x AP x TRV). The kidney is normal in size, contour, and echogenicity. Renal cortical thickness is normal. No calculi or focal parenchymal lesions. No hydronephrosis. The left-sided retroperitoneal collection posterior to the left kidney is not identified on this study. BLADDER: Well distended and normal. Bilateral ureteral jets are not demonstrated. Prevoid bladder volume is 972 mL. A Mcallister catheter is present in the bladder. ADDITIONAL FINDINGS: Ascites is seen in all 4 quadrants US/US retroperitoneal comp IMPRESSION: 1. Normal-appearing kidneys. No obvious cause such as hydronephrosis is seen to account for deteriorating renal function. 2. Ascites. 3. The left-sided retroperitoneal collection is not identified on this study. Electronically signed by: Robert Gary MD 01/12/2024 10:56 AM EDT
--- NOTE | ~2024-01-10 | CT_ITS ---
EXAMINATION: CT ABDOMEN AND PELVIS WITHOUT CONTRAST CLINICAL INFORMATION: Abdominal pain, cirrhosis. COMPARISON: CT abdomen/pelvis 10/11/2023. TECHNIQUE: Multidetector volumetric imaging was performed from the superior aspect of the liver through the pubic symphysis. Sagittal and coronal reformatted images were obtained on the technologist's workstation. This CT examination was performed using dose optimization techniques as appropriate, variously including the following: *Automated exposure control *Adjustment of mA and/or kV according to patient size (this includes techniques or standardized protocols for targeted exams where dose is matched to indication/reason for exam; i.e. extremities or head) *Use of iterative reconstruction technique DLP: 1042 mGy-cm FINDINGS: The lack of intravenous contrast limits evaluation of the solid visceral organs including the liver, spleen, pancreas, and kidneys. LUNG BASES: No focal consolidation or pleural effusion. Partially seen cardiomegaly. Stable asymmetric elevation of the right hemidiaphragm. LIVER, GALLBLADDER, AND BILIARY TREE: Enlarged liver measuring 21 cm craniocaudally with suggestion of a micronodular contour in keeping with history of cirrhosis. No discrete focal liver mass, although evaluation is limited in the absence of intravenous contrast. No evidence of calcified gallbladder calculi. Pericholecystic free fluid is indeterminate in the context of ascites. No biliary ductal dilatation. PANCREAS: Redemonstration of diffuse parenchymal atrophy. No main ductal dilatation. No significant peripancreatic fat stranding. SPLEEN: Unremarkable. ADRENAL GLANDS: Unremarkable. KIDNEYS AND URETERS: Unchanged encapsulated peripherally calcified collection in the left flank posterior to the left kidney measuring 4.3 x 2 cm (3:41). No nephrolithiasis or hydronephrosis. BLADDER: Unremarkable. GASTROINTESTINAL TRACT: Limited evaluation in the absence of contrast and background of moderate volume of ascites. No disproportionate dilatation to suspect bowel obstruction. Small hiatal hernia. Moderate to large degree of colonic stool burden. Moderate volume of ascites. Increased irregularity and fatty haziness of the anterior omental/peritoneal fat. ABDOMINAL WALL: Surgical tacks from prior anterior abdominal hernia repair. Significant diastases of the rectus abdominis with protrusion of nonobstructed loops of bowel. Unchanged metallic densities in the deep left posterior abdominal wall. Stable asymmetric iliopsoas thickening in proximity to the above described retroperitoneal collection. LYMPH NODES: Limited evaluation. No bulky lymphadenopathy. VASCULAR: Limited noncontrast examination. Moderate atherosclerotic disease. Normal caliber abdominal aorta. Portal hypertension with portosystemic vascular collaterals. PELVIC VISCERA: Moderate volume of free fluid. OSSEOUS STRUCTURES: Compared to 10/11/2023, new burst fracture of the L1 vertebral body with 0.5 cm of retropulsion into the anterior spinal canal. Stable compression deformity at L4. Unchanged insufficiency fractures in the sacrum. CT/CT abdomen pelvis wo IV con IMPRESSION: 1. Compared to 10/11/2023, new burst fracture of the L1 vertebral body with 0.5 cm of retropulsion into the anterior spinal canal. Recommend correlation with physical examination and if indicated further characterization with an MRI of the lumbar spine. 2. Increased irregularity and fatty haziness of the anterior omental/peritoneal fat; nonspecific could be related with portal hypertension versus infectious/inflammatory peritonitis or less likely underlying malignancy. Clinical correlation and close attention on follow-up recommended. 3. Cirrhotic liver with portal hypertension and moderate to large volume of ascites. Evaluation of focal liver lesions is limited in the absence of intravenous contrast. 4. Moderate to large degree of colonic stool burden suggesting constipation. 5. Stable encapsulated retroperitoneal collection posterior to the left kidney. Electronically signed by: Batool Ku MD 01/10/2024 09:24 PM EDT
--- NOTE | ~2024-01-10 | US_ITS ---
EXAMINATION: US ABDOMEN LIMITED CLINICAL INFORMATION: Ascites. COMPARISON: CT scan dated January 10, 2024. TECHNIQUE: Limited real-time imaging of 4 quadrants to assess for the presence of ascites. FINDINGS: No significant ascites is appreciated on the images submitted. Ascites seen on CT scan from 3 days prior is not evident on the current ultrasound examination. US/US abdomen limited IMPRESSION: Findings as above. Electronically signed by: Steven Rodas MD 01/13/2024 05:48 PM EDT
--- NOTE | ~2024-01-10 | XR_ITS ---
EXAMINATION: XR CHEST CLINICAL INFORMATION: Lower extremity swelling. COMPARISON: Chest radiograph 08/06/2023. TECHNIQUE: 2 views of the chest were obtained. FINDINGS: Stable prominence of the cardiomediastinal silhouette. Unchanged asymmetric elevation of the right hemidiaphragm. No focal consolidation, pleural effusion or pneumothorax. No acute osseous findings. XR/XR chest 2V IMPRESSION: 1. No acute cardiopulmonary findings. 2. Stable prominence of the cardiomediastinal silhouette. 3. Unchanged asymmetric elevation of the right hemidiaphragm. Electronically signed by: Batool Ku MD 01/10/2024 10:29 PM EDT
[2024-01-10 15:45] VITALS: BP 118/69; PULSE 96; RESP 18; TEMP 36.9; O2SAT 92; BMI 42.4
--- NOTE | 2024-01-10 15:46 | ED_ITS ---
HPI - Abdominal Pain General Chief Complaint: Abdominal Pain Stated Complaint: Abdominal pain Time Seen by Provider: 01/10/24 18:30 History of Present Illness HPI narrative: Patient complains of diffuse abdominal pain that started gradually over past several days and has been waxing and waning it is worse in the epigastrium but is all over the abdomen, she also complains of increased swelling of legs and abdomen She denies chest pain shortness of breath she denies dysuria she has no vomiting although she does have nausea no diarrhea, denies any blood in the stool She has a history of salcido, ascites, cirrhosis, hepatorenal syndrome, as well as prior DVT on Coumadin Related Data Home Medications ?Medication ?Instructions ?Recorded ?Confirmed bupropion HCl 200 mg tablet,12 hr 200 mg PO BID depressive disorder 01/03/23 10/12/23 sustained-release hydroxyzine pamoate 25 mg capsule 25 mg PO TID PRN Anxiety 01/03/23 10/12/23 loratadine 10 mg tablet 10 mg PO DAILY 01/03/23 10/12/23 ondansetron HCl 4 mg tablet 4 mg PO BID Nausea And Vomiting 01/03/23 10/12/23 risperidone microspheres 50 mg/2 50 mg IM Q2W 01/03/23 10/12/23 mL intramuscular susp,ext release (Risperdal Consta) zolpidem 10 mg tablet 10 mg PO BEDTIME Insomnia 01/03/23 10/12/23 triamcinolone acetonide 0.025 % 1 appl topical BID PRN Rash 03/11/23 10/12/23 topical ointment benztropine 0.5 mg tablet 0.5 mg PO BID PRN dystonias 07/13/23 10/12/23 nystatin 100,000 unit/gram topical 1 appl topical BID 07/13/23 10/12/23 powder warfarin 4 mg tablet 8 mg PO WETHFR 07/13/23 10/12/23 warfarin 6 mg tablet 9 mg PO SUSA 07/13/23 10/12/23 furosemide 40 mg tablet 40 mg PO DAILY 08/05/23 10/12/23 Previous Rx's ?Medication ?Instructions ?Recorded polyethylene glycol 3350 17 17 g PO DAILY PRN constipation 07/16/23 gram/dose oral powder (Miralax) #119 grams spironolactone 25 mg tablet 25 mg PO BID@0900,1800 #120 tabs 07/16/23 midodrine 5 mg tablet 5 mg PO TID #30 tabs 08/10/23 cefuroxime axetil 500 mg tablet 500 mg PO BID #10 tabs 10/13/23 tamsulosin 0.4 mg capsule 0.4 mg PO DAILY #90 caps 10/13/23 Allergies Allergy/AdvReac Type Severity Reaction Status Date / Time No Known Allergies Allergy Verified 01/10/24 15:47 [No Known Allergies*] [facility] Past Medical History Source: nursing notes reviewed Medical History Liver cirrhosis secondary to SALCIDO Obstructive uropathy Hyponatremia Cirrhosis of liver with ascites Acute kidney insufficiency UTI (urinary tract infection) Cervical cancer Lymphedema Cardiac arrest DVT (deep venous thrombosis) Social History Social History Household Members: Children Household Members Other:: Son, daughter Housing: Apartment Do you presently have visiting nurse or other home services: Yes Alcohol intake: never Comment: DAUGHTER STAYING OVERNIGHT Patient Tobacco Use Status: Never used Tobacco e-Cigarette/Vaping Use: Never Used Advance Directives: Yes Advance Directives on File: Yes Advance Directives Date on File: 01/03/23 service: No Physical Exam ED Vital Signs: Vital Signs - 24 hr 01/10/24 15:45 01/10/24 22:08 Temperature 98.5 F 97.3 F Pulse Rate 96 86 Respiratory Rate 18 18 Blood Pressure 118/69 121/80 Pulse Oximetry 92 98 Oxygen Delivery Method Room Air Room Air BMI result Body Mass Index 42.4 General appearance no acute distress Head is normocephalic atraumatic The neck is supple Chest is clear to auscultation bilateral Heart no murmur The abdomen had diffuse mild tenderness in all quadrants slightly worse in the epigastrium there was no rebound no guarding, there was evidence of ascites Extremities full range of motion x4, there was significant leg swelling Neuro interaction comprehension expression are normal, gait and balance were normal, motor 5/5 x4 sensation intact and symmetrical cranial nerves 2-12 intact as tested Course Course Course Narrative: This is an RME: Additional HPI, ROS, PE not included below will be deferred to primary provider. RME assessment and note performed by: Ankita Max PA-C This is a [id number]-female, SALCIDO complicated by ascites, cervical cancer s/p pelvic radiation, hx of lower extremity DVT on warfarin, diet controlled type 2 diabetes, GERD, and schizophrenia who prsents to the ER with complaint of diffuse abdominal pain and nausea x 3 days. No diarrhea. Plan: Labs, UA No acute abnormalities in hematology INR was 2.1 BUN creatinine was 26 be when and 3.22 creatinine which is new and different from prior in September of this year which was BUN 11 and creatinine 0.88 Troponin was 2.7 Urinalysis did not show signs of infection EKG was a normal sinus rhythm with a rate of 94, no acute ST changes CT scan showed a compression fracture in the spine at L1 which patient said she was aware of as well as a significant amount of stool as well as ascites as well as evidence of portal hypertension Chest x-ray was without acute findings Patient remained stable throughout ER visit with some discomfort which was treated with analgesics, but otherwise cheerful and cooperative throughout her visit Case was discussed with attending physician Dr. Caballero who advised admit for acute kidney injuries, cirrhosis and likely hepatorenal syndrome and patient was admitted to the hospital Medical Decision Making Lab Data MDM Lab Attestation statement: I reviewed the patient's lab results. 01/10/24 16:20 01/10/24 16:20 Labs: Lab Results 01/10/24 Range/Units 16:20 WBC 4.9 (4.8-10.8) X10*3/uL RBC 4.95 D (4.20-5.50) X10*6/uL Hgb 13.7 D (12.0-16.0) g/dl Hct 42.2 D (37.0-47.0) % MCV 85.3 (80.0-98.0) fL MCH 27.7 (27.0-33.0) pg MCHC 32.5 (31.0-35.0) g/dl RDW 14.3 (11.0-16.0) % Plt Count 285 D (160-400) X10*3/uL MPV 10.1 (9.4-12.3) fL Immature Gran % (Auto) 0.2 (0.0-0.4) % Neut % (Auto) 72.4 (45-73) % Lymph % (Auto) 20.2 (20-40) % [place] % (Auto) 6.6 (2-11) % Eos % (Auto) 0.2 (0-4) % Baso % (Auto) 0.4 (0-2) % Lymph # (Auto) 1.0 L (1.2-4.9) X10*3/uL [place] # (Auto) 0.3 (0.1-1.2) X10*3/uL Eos # (Auto) 0.0 (0.0-0.4) X10*3/uL Baso # (Auto) 0.0 (0.0-0.2) X10*3/uL Abs Immat Gran (auto) 0.01 (0.00-0.03) X10*3/uL Absolute Neuts (auto) 3.5 (2.0-8.3) x10*3/uL Absolute Nucleated RBC 0.000 (0.0-0.012) X10*3/uL Nucleated RBC % (auto) 0.0 (0.0-0.2) /100WBC Sodium 136 (135-145) mmol/L Potassium 3.9 (3.3-5.1) mmol/L Chloride 98 (96-108) mmol/L Carbon Dioxide 29 (22-29) mmol/L Anion Gap 13 (12-20) BUN 26 H (9-16) mg/dL Creatinine 3.22 H (0.5-1.4) mg/dL Estim Creat Clear Calc 23.2 Estimated GFR 15 Random Glucose 76 (60-115) mg/dL Calcium 9.4 (8.4-10.2) mg/dL Magnesium 2.3 (1.6-2.6) mg/dL Total Bilirubin 0.8 (0.0-1.0) mg/dL Direct Bilirubin 0.3 (0.0-0.5) mg/dL AST 15 (5-31) U/L ALT 14 (0-31) U/L Alkaline Phosphatase 103 (39-117) U/L Troponin I High Sens < 2.7 (<3.5-17.0) ng/L Total Protein 7.5 (6.5-8.0) g/dL Albumin 4.4 (3.5-5.0) g/dL Lipase 15 (8-78) U/L Beta HCG, Quant 4 mIU/mL Urine Color Yellow Urine Appearance Clear Urine pH 5.5 (5.0-9.0) Ur Specific [place] 1.010 (1.005-1.025) Urine Protein Negative (Neg-Trace) mg/dL Urine Glucose (UA) Negative (Negative) mg/dL Urine Ketones Negative (Negative) mg/dL Urine Blood Negative (Negative) Urine Nitrite Negative (Negative) Ur Leukocyte Esterase Small (1+) H (Negative) Urine RBC 0-2 (0-2) /HPF Urine WBC 0-5 (0-5) /HPF Ur Squamous Epith Cells 0-2 (0-2) /HPF Urine Bacteria None Seen (None Seen) Hyaline Casts 0-2 (0-2) /LPF Discharge Plan Discharge Clinical Impression: Acute kidney injury, Hepatorenal syndrome, Anasarca Patient Disposition: Admitted As Inpatient Prescriptions: No Action zolpidem 10 mg tablet 10 mg PO BEDTIME loratadine 10 mg tablet 10 mg PO DAILY hydroxyzine pamoate 25 mg capsule 25 mg PO TID PRN (Reason: Anxiety) bupropion HCl 200 mg tablet sustained-release 12 hr 200 mg PO BID risperidone microspheres [Risperdal Consta] 50 mg/2 mL suspension,extended rel recon 50 mg IM Q2W Rx Instructions: ON FRIDAYS ondansetron HCl 4 mg tablet 4 mg PO BID triamcinolone acetonide 0.025 % ointment 1 appl topical BID PRN (Reason: Rash) furosemide 40 mg tablet 40 mg PO DAILY midodrine 5 mg tablet 5 mg PO TID Qty: 30 0RF Rx Instructions: do not give last dose of day after 6PM or within 4 hrs of bedtime benztropine 0.5 mg tablet 0.5 mg PO BID PRN (Reason: dystonias) warfarin 4 mg tablet 8 mg PO WETHFR Rx Instructions: last dose was 8mg per patient warfarin 6 mg tablet 9 mg PO SUSA nystatin 100,000 unit/gram powder 1 appl topical BID spironolactone 25 mg Tablet 25 mg PO BID@0900,1800 Qty: 120 0RF Protocol: Hold for SBP< HOLD for SBP < : 90 polyethylene glycol 3350 [Miralax] 17 gram/dose powder 17 g PO DAILY PRN (Reason: constipation) Qty: 119 0RF tamsulosin 0.4 mg Capsule 0.4 mg PO DAILY Qty: 90 0RF cefuroxime axetil 500 mg tablet 500 mg PO BID Qty: 10 0RF Print Language: Lithuanian
--- NOTE | 2024-01-10 15:47 | ECG_ITS ---
Test Reason : epigastric pain Blood Pressure : / mmHG Vent. Rate : 094 BPM Atrial Rate : 094 BPM P-R Int : 158 ms QRS Dur : 078 ms QT Int : 360 ms P-R-T Axes : 045 060 026 degrees QTc Int : 450 ms Normal sinus rhythm Normal ECG When compared with ECG of 07-JAN-2023 15:07, T wave inversion now evident in Anterior leads T wave inversion no longer evident in Lateral leads Referred By: Ankita Max Electronically Signed By:MARS MATHIAS
[2024-01-10 16:27] LABS: MANUAL DIFF FLAG NO
[2024-01-10 16:32] LABS: Basophils Percent Auto 0.4 % (0-2); Eosinophils Percent Auto 0.2 % (0-4); Hematocrit 42.2 % (37.0-47.0); Hemoglobin 13.7 g/dl (12.0-16.0); Imm Gran Abs Auto 0.01 X10*3/uL (0.00-0.03); Imm Gran Pct Auto 0.2 % (0.0-0.4); Lymphocytes Percent Auto 20.2 % (20-40); Mean Corpuscular HGB Conc 32.5 g/dl (31.0-35.0); Mean Corpuscular Hemoglobin 27.7 pg (27.0-33.0); Mean Corpuscular Volume 85.3 fL (80.0-98.0); Mean Platelet Volume 10.1 fL (9.4-12.3); Monocytes Absolute Auto 0.3 X10*3/uL (0.1-1.2); Monocytes Percent Auto 6.6 % (2-11); Neutrophils Absolute Auto 3.5 x10*3/uL (2.0-8.3); Neutrophils Percent Auto 72.4 % (45-73); Platelet Count 285 X10*3/uL (160-400); Red Blood Count 4.95 X10*6/uL (4.20-5.50); Red Cell Distribution Width 14.3 % (11.0-16.0); White Blood Count 4.9 X10*3/uL (4.8-10.8)
[2024-01-10 16:47] LABS: Appearance Urine Clear; Color Urine Yellow; Glucose Urine UA Negative (Negative); Leukocyte Esterase Urine Small (1+) (Negative); Nitrite Urine Negative (Negative); PH 5.5 (5.0-9.0); UMIC TRIGGER UACC YES; Urine Blood Negative (Negative); Urine Ketones Negative (Negative); Urine Protein Negative (Neg-Trace)
[2024-01-10 16:56] LABS: Alanine Aminotransferase 14 U/L (0-31); Albumin Level 4.4 g/dL (3.5-5.0); Alkaline Phosphatase 103 U/L (39-117); Anion Gap 13 (12-20); Aspartate Amino Transferase 15 U/L (5-31); Bilirubin Direct 0.3 mg/dL (0.0-0.5); Bilirubin Total 0.8 mg/dL (0.0-1.0); Blood Urea Nitrogen 26 mg/dL (9-16); Calcium 9.4 mg/dL (8.4-10.2); Carbon Dioxide 29 mmol/L (22-29); Chloride 98 mmol/L (96-108); Creatinine Clr Calc Pharmacy 23.2; Estimated Glomerular Filt Rate 15; Glucose Random 76 mg/dL (60-115); HCG Quantitative 4 mIU/mL; Lipase 15 U/L (8-78); Magnesium 2.3 mg/dL (1.6-2.6); Potassium 3.9 mmol/L (3.3-5.1); Sodium 136 mmol/L (135-145); Total Protein 7.5 g/dL (6.5-8.0); Troponin-I High Sensitivity < 2.7 ng/L (<3.5-17.0)
[2024-01-10 17:03] LABS: Bacteria Urine None Seen (None Seen); Hyaline Casts Urine 0-2 /LPF (0-2); RBC Urine 0-2 /HPF (0-2); Squamous Epithelial Cell Urine 0-2 /HPF (0-2); UACC Culture Trigger YES; WBC Urine 0-5 /HPF (0-5)
[2024-01-10 22:08] VITALS: BP 121/80; PULSE 86; RESP 18; TEMP 36.3; O2SAT 98
--- NOTE | 2024-01-10 23:13 | P.HPHOSP_ITS ---
History of Present Illness Date of Service: 01/10/24 Attending physician on admission: Edwige Lundberg Chief Complaint: Abdominal pain Emilee Celis is a very pleasant 53 years old woman past medical history significant for liver cirrhosis secondary to MALDONADO, DAVID due to neurogenic bladder with recurrent obstruction and DVT on warfarin presents to the emergency department complaining of epigastric and pelvic abdominal pain that started Tuesday. She described the pain as dull, constant without radiation. The intensity of the pain is 5/10. She noted increased abdominal girth. She does have chronic lymphedema and denied worsening of edema. She reports feeling very nauseous and having poor appetite. She reported suggestive fever. Denies chills, chest pain, shortness on breath, cough or nasal congestion. She did not report any pain with urination. Denied any episodes of vomiting or diarrhea. She also has not been eating or drinking much. She also noted decreased urinary frequency despite she has been taking furosemide and spironolactone. She continue taking same doses of furosemide and spironolactone. In the ED, she was found to have normal vital signs. Blood workup normal WBC, hemoglobin and platelets. INR was not obtained. There are no electrolyte imbalances. Creatinine increased from 0.88 --> 3.22 and BUN from 11--> 26. Albumin, lipase and LFTs are normal. Urinalysis did not show finding consistent with UTI. CXR is negative for pneumonia, infiltrate, consolidation pleural effusions. Abdomen pelvis CT scan possible new burst fracture of L1, changes possibly consistent with infectious/inflammatory peritonitis or portal hypertension, cirrhotic liver with portal hypertension and moderate to large volume ascites, constipation and chronic encapsulated retroperitoneal collection posterior to left kidney. ECG showed normal sinus rhythm with a heart rate 94 beats per minute w/o ischemic changes. ED tx: None. Review of Systems 2 Review of Systems: All 12 systems were reviewed and normal except as noted in HPI. [facility] Medical History Liver cirrhosis secondary to MALDONADO Obstructive uropathy Hyponatremia Cirrhosis of liver with ascites Acute kidney insufficiency UTI (urinary tract infection) Cervical cancer Lymphedema Cardiac arrest DVT (deep venous thrombosis) Social History Household Members: Children Household Members Other:: Son, daughter Housing: Apartment Do you presently have visiting nurse or other home services: Yes Alcohol intake: never Comment: DAUGHTER STAYING OVERNIGHT Patient Tobacco Use Status: Never used Tobacco e-Cigarette/Vaping Use: Never Used Advance Directives: Yes Advance Directives on File: Yes Advance Directives Date on File: 01/03/23 service: No Meds Allergies Allergy/AdvReac Type Severity Reaction Status Date / Time No Known Allergies Allergy Verified 01/10/24 15:47 [No Known Allergies*] Active Medications: Current Medications Hydromorphone HCl (Hydromorphone Hcl 0.5 Mg/0.5 Ml Syringe) 0.5 mg IVPUSH ONCE ONE; Protocol Stop: 01/10/24 23:03 Sodium Chloride (Ns) 500 mls @ 999 mls/hr IV .Q31M LAUREN Stop: 01/10/24 23:30 Melatonin (Melatonin 3 Mg Tablet) 6 mg PO BEDTIME PRN PRN Reason: Insomnia Ondansetron HCl (Ondansetron Hcl 4 Mg/2 Ml Vial) 4 mg IVPUSH Q6H LAUREN Sodium Chloride (0.9 % Sodium Chloride Flush 3 Ml Syringe) 3 ml IVFLUSH QSHIFT [facility] Home Medications ?Medication ?Instructions ?Recorded ?Confirmed ?Last Taken ?Type bupropion HCl 200 mg tablet,12 hr 200 mg PO BID depressive disorder 01/03/23 10/12/23 10/11/23 History sustained-release hydroxyzine pamoate 25 mg capsule 25 mg PO TID PRN Anxiety 01/03/23 10/12/23 10/11/23 History loratadine 10 mg tablet 10 mg PO DAILY 01/03/23 10/12/23 10/11/23 History ondansetron HCl 4 mg tablet 4 mg PO BID Nausea And Vomiting 01/03/23 10/12/23 10/11/23 History risperidone microspheres 50 mg/2 50 mg IM Q2W 01/03/23 10/12/23 09/30/23 History mL intramuscular susp,ext release (Risperdal Consta) zolpidem 10 mg tablet 10 mg PO BEDTIME Insomnia 01/03/23 10/12/23 10/11/23 History triamcinolone acetonide 0.025 % 1 appl topical BID PRN Rash 03/11/23 10/12/23 10/11/23 History topical ointment benztropine 0.5 mg tablet 0.5 mg PO BID PRN dystonias 07/13/23 10/12/23 10/11/23 History nystatin 100,000 unit/gram topical 1 appl topical BID 07/13/23 10/12/23 10/11/23 History powder warfarin 4 mg tablet 8 mg PO WETHFR 07/13/23 10/12/23 10/11/23 History warfarin 6 mg tablet 9 mg PO SUSA 07/13/23 10/12/23 10/11/23 History furosemide 40 mg tablet 40 mg PO DAILY 08/05/23 10/12/23 10/11/23 History Physical Exam 2 Vital Signs and Narrative: Vital Signs: Last Vital Signs Temp 97.3 F 01/10/24 22:08 Pulse 86 01/10/24 22:08 Resp 18 01/10/24 22:08 BP 121/80 01/10/24 22:08 Pulse Ox 98 01/10/24 22:08 O2 Del Method Room Air 01/10/24 22:08 BMI result Body Mass Index 42.4 Constitutional - Awake and Alert, No apparent distress. Pleasant. Cooperative. HEENT - PERRL, EOMI. Normal sclerae. VERY DRY oral mucosa. Heart - S1S2, RRR, No murmurs. Heart- Normal lung expansion, Normal respiratory effort, No respiratory distress, CTA bilaterally Abdomen - Distended, (+) fluid waves, tenderness to palpation over epigastrium and pelvic area. Decreased bowel sounds. No rebound. No guarding. Extremities - nonpitting edema to the lower extremities. Musculoskeletal - Normal inspection, normal ROM Skin - Warm/Dry Neurological - Alert & oriented x3. No focal weakness grossly noted. Normal speech. Psychological - Appropriate affect Results Labs 01/10/24 16:20 01/10/24 16:20 Labs: Laboratory Results - last 24 hr 01/10/24 16:20 MCV 85.3 MCH 27.7 MCHC 32.5 RDW 14.3 Plt Count 285 D MPV 10.1 Immature Gran % (Auto) 0.2 Neut % (Auto) 72.4 Lymph % (Auto) 20.2 [place] % (Auto) 6.6 Eos % (Auto) 0.2 Baso % (Auto) 0.4 Lymph # (Auto) 1.0 L [place] # (Auto) 0.3 Eos # (Auto) 0.0 Baso # (Auto) 0.0 Abs Immat Gran (auto) 0.01 Absolute Neuts (auto) 3.5 Absolute Nucleated RBC 0.000 Nucleated RBC % (auto) 0.0 Anion Gap 13 Estim Creat Clear Calc 23.2 Estimated GFR 15 Random Glucose 76 Calcium 9.4 Magnesium 2.3 Total Bilirubin 0.8 Direct Bilirubin 0.3 AST 15 ALT 14 Alkaline Phosphatase 103 Troponin I High Sens < 2.7 Total Protein 7.5 Albumin 4.4 Lipase 15 Beta HCG, Quant 4 Urine Color Yellow Urine Appearance Clear Urine pH 5.5 Ur Specific [place] 1.010 Urine Protein Negative Urine Glucose (UA) Negative Urine Ketones Negative Urine Blood Negative Urine Nitrite Negative Ur Leukocyte Esterase Small (1+) H Urine RBC 0-2 Urine WBC 0-5 Ur Squamous Epith Cells 0-2 Urine Bacteria None Seen Hyaline Casts 0-2 Imaging Radiologist's Impressions: Impressions Abdomen/Pelvis CT 01/10/24 19:17 IMPRESSION: 1. Compared to 10/11/2023, new burst fracture of the L1 vertebral body with 0.5 cm of retropulsion into the anterior spinal canal. Recommend correlation with physical examination and if indicated further characterization with an MRI of the lumbar spine. 2. Increased irregularity and fatty haziness of the anterior omental/peritoneal fat; nonspecific could be related with portal hypertension versus infectious/inflammatory peritonitis or less likely underlying malignancy. Clinical correlation and close attention on follow-up recommended. 3. Cirrhotic liver with portal hypertension and moderate to large volume of ascites. Evaluation of focal liver lesions is limited in the absence of intravenous contrast. 4. Moderate to large degree of colonic stool burden suggesting constipation. 5. Stable encapsulated retroperitoneal collection posterior to the left kidney. Electronically signed by: Batool Ku MD 01/10/2024 09:24 PM EDT RP Chest X-Ray 01/10/24 22:05 IMPRESSION: 1. No acute cardiopulmonary findings. 2. Stable prominence of the cardiomediastinal silhouette. 3. Unchanged asymmetric elevation of the right hemidiaphragm. Electronically signed by: Batool Ku MD 01/10/2024 10:29 PM EDT RP Assessment and Plan (1) Acute kidney injury: Status: Acute (2) Ascites: Qualifiers: Ascites type: other type Qualified Code(s): R18.8 - Other ascites Status: Resolved Plan Emilee Celis is a 53 y/o woman PMHx significant for liver cirrhosis secondary to MALDONADO admittted with: * Acute kidney injury likely due to PO intake in the setting of diuretic use; concern for urinary retention due to neurogenic bladder. Admit to hospitalist service. Hold spironolactone and furosemide. Gentle hydration. Continue to monitor renal function. Avoid nephrotoxic agents and hypotension (continue midodrine). Continue tamsulosin. Check bladder scan every 6 hours. Nephrology consult. * Moderate to large ascites + abdominal pain. No anasarca. No fever, tachycardia, hypotension or diverticulosis. Doubt SBP (no signs for peritonitis). Diuresis on hold due to above. IR consult for paracentesis. * History of DVT. Continue warfarin. Check INR stat. * Type 2 diabetes mellitus, not insulin dependent. * GERD. Omeprazole. * Mood disorder. Continue home meds. * Hx of cervical CA s/p radiation. DVT prophylaxis: On warfarin GI prophylaxis: Omeprazole Code status: Full Patient will need hospitalization for at least 2 midnights for DAVID treatment and management with IV fluids, continue vital signs monitoring and renal function. Patient will also need evaluation by subspecialty. Quality Stroke Does the patient have a stroke diagnosis?: No VTE Prior VTE?: No VTE Risk Level:: Medical - moderate - high VTE Device Contraindication: Treatment Not Indicated VTE Drug Contraindication: N/A - Med Ordered
[2024-01-10] MEDS: 0.9 % Sodium Chloride 500 ML 999 ML IV (23:18)
[2024-01-10 23:21] VITALS: RESP 16
[2024-01-10] MEDS: HYDROmorphone HCl 0.5 MG/0.5 ML SYRINGE IVPUSH (23:21)
[2024-01-10 23:39] LABS: INTERNATIONAL NORM RATIO 4.5 (0.9-1.1); Prothrombin Time 52.9 SEC (10.9-12.4)
[2024-01-10 23:40] VITALS: BP 110/55; PULSE 90; RESP 17; TEMP 36.7; O2SAT 97
[2024-01-11] VITALS (11 sets, daily range): BP systolic 100–129; BP diastolic 55–65; PULSE 58–107; RESP 16–18; TEMP 36.1–37.3; O2SAT 92–95
[2024-01-11] MEDS: ondansetron HCL 4 MG/2 ML VIAL IVPUSH ×4 (00:27→17:56)
[2024-01-11] MEDS: Sennosides/Docusate Sodium TABLET 2 TAB PO (00:29)
[2024-01-11] MEDS: Midodrine HCl 5 MG TABLET PO ×4 (00:29→21:28)
[2024-01-11 04:42] LABS: COVID-19 Test Negative (Negative); IDNOW Serial# 08D9AD1C
[2024-01-11 05:06] LABS: MANUAL DIFF FLAG NO
[2024-01-11 05:09] LABS: Basophils Percent Auto 0.6 % (0-2); Eosinophils Percent Auto 0.4 % (0-4); Hematocrit 41.7 % (37.0-47.0); Imm Gran Abs Auto 0.02 X10*3/uL (0.00-0.03); Imm Gran Pct Auto 0.4 % (0.0-0.4); Lymphocytes Absolute Auto 0.8 X10*3/uL (1.2-4.9); Lymphocytes Percent Auto 15.5 % (20-40); Mean Corpuscular HGB Conc 31.2 g/dl (31.0-35.0); Mean Corpuscular Hemoglobin 27.3 pg (27.0-33.0); Mean Corpuscular Volume 87.6 fL (80.0-98.0); Mean Platelet Volume 10.2 fL (9.4-12.3); Monocytes Absolute Auto 0.6 X10*3/uL (0.1-1.2); Neutrophils Absolute Auto 3.7 x10*3/uL (2.0-8.3); Neutrophils Percent Auto 71.1 % (45-73); Platelet Count 213 X10*3/uL (160-400); Red Blood Count 4.76 X10*6/uL (4.20-5.50); Red Cell Distribution Width 14.4 % (11.0-16.0); White Blood Count 5.2 X10*3/uL (4.8-10.8)
[2024-01-11 05:26] LABS: Alanine Aminotransferase 11 U/L (0-31); Albumin Level 4.1 g/dL (3.5-5.0); Alkaline Phosphatase 104 U/L (39-117); Anion Gap 17 (12-20); Aspartate Amino Transferase 12 U/L (5-31); Bilirubin Total 0.8 mg/dL (0.0-1.0); Blood Urea Nitrogen 26 mg/dL (9-16); Calcium 9.1 mg/dL (8.4-10.2); Carbon Dioxide 22 mmol/L (22-29); Chloride 100 mmol/L (96-108); Creatinine Clr Calc Pharmacy 21.3; Estimated Glomerular Filt Rate 14; Glucose Random 87 mg/dL (60-115); Magnesium 2.5 mg/dL (1.6-2.6); Potassium 3.9 mmol/L (3.3-5.1); Sodium 135 mmol/L (135-145); Total Protein 7.1 g/dL (6.5-8.0)
[2024-01-11] MEDS: oxyCODONE HCl Immed Release 5 MG TABLET 2.5 MG PO (05:26)
[2024-01-11] MEDS: Omeprazole 20 MG CAPSULE.DR PO (06:36)
--- NOTE | 2024-01-11 07:05 | P.PNIM_ITS ---
Subjective Subjective Date of Service: 01/11/24 Interval History: f/u on DAVID, abdominal pain c/o some abdominal pain Physical Exam 2 Vital Signs: Vital Signs: Last Vital Signs Temp 98.0 F 01/11/24 06:36 Pulse 90 01/11/24 06:36 Resp 17 01/11/24 06:36 BP 110/55 L 01/11/24 06:36 Pulse Ox 97 01/10/24 23:40 O2 Del Method Room Air 01/10/24 23:40 BMI result Body Mass Index 42.4 General: AO X 3, no acute distress Resp: CTA bilateral CVS: S1,S2,RRR GI: +BS, NT, abdominal distention, +fluid wave Skin: No rash Neuro: motor grossly intact Psych: appropriate affect Objective Data Active Medications Acetaminophen (Acetaminophen 325 Mg Tablet) 325 mg PO Q8H PRN PRN Reason: Fever >100.4 Melatonin (Melatonin 3 Mg Tablet) 6 mg PO BEDTIME PRN PRN Reason: Insomnia Midodrine (Midodrine Hcl 5 Mg Tablet) 5 mg PO TID [facility] Last Admin: 01/11/24 00:29 Dose: 5 mg Documented By: CORNELL Omeprazole (Omeprazole 20 Mg Capsule.Dr) 20 mg PO DAILY@0630 [facility] Last Admin: 01/11/24 06:36 Dose: 20 mg Documented By: CORNELL Ondansetron HCl (Ondansetron Hcl 4 Mg/2 Ml Vial) 4 mg IVPUSH Q6H [facility] Last Admin: 01/11/24 06:34 Dose: 4 mg Documented By: CORNELL Oxycodone HCl (Oxycodone Hcl Immed Release 5 Mg Tablet) 2.5 mg PO Q8H PRN PRN Reason: abdominal pain Last Admin: 01/11/24 05:26 Dose: 2.5 mg Documented By: CORNELL Sodium Chloride (0.9 % Sodium Chloride Flush 3 Ml Syringe) 3 ml IVFLUSH QSHIFT [facility] Last Admin: 01/11/24 00:30 Dose: Not Given Documented By: CORNELL Non-Admin Reason: IV Running Labs 01/11/24 04:41 01/11/24 04:41 Labs: Laboratory Results - last 24 hr 01/10/24 01/10/24 01/11/24 16:20 23:28 03:32 MCV 85.3 MCH 27.7 MCHC 32.5 RDW 14.3 Plt Count 285 D MPV 10.1 Immature Gran % (Auto) 0.2 Neut % (Auto) 72.4 Lymph % (Auto) 20.2 [place] % (Auto) 6.6 Eos % (Auto) 0.2 Baso % (Auto) 0.4 Lymph # (Auto) 1.0 L [place] # (Auto) 0.3 Eos # (Auto) 0.0 Baso # (Auto) 0.0 Abs Immat Gran (auto) 0.01 Absolute Neuts (auto) 3.5 Absolute Nucleated RBC 0.000 Nucleated RBC % (auto) 0.0 PT 52.9 H INR 4.5 H D Anion Gap 13 Estim Creat Clear Calc 23.2 Estimated GFR 15 Random Glucose 76 Calcium 9.4 Magnesium 2.3 Total Bilirubin 0.8 Direct Bilirubin 0.3 AST 15 ALT 14 Alkaline Phosphatase 103 Troponin I High Sens < 2.7 Total Protein 7.5 Albumin 4.4 Lipase 15 Beta HCG, Quant 4 Urine Color Yellow Urine Appearance Clear Urine pH 5.5 Ur Specific [place] 1.010 Urine Protein Negative Urine Glucose (UA) Negative Urine Ketones Negative Urine Blood Negative Urine Nitrite Negative Ur Leukocyte Esterase Small (1+) H Urine RBC 0-2 Urine WBC 0-5 Ur Squamous Epith Cells 0-2 Urine Bacteria None Seen Hyaline Casts 0-2 COVID-19 (MARY) Negative COVID-19 Clin Com See Note 01/11/24 04:41 MCV 87.6 MCH 27.3 MCHC 31.2 RDW 14.4 Plt Count 213 D MPV 10.2 Immature Gran % (Auto) 0.4 Neut % (Auto) 71.1 Lymph % (Auto) 15.5 L [place] % (Auto) 12.0 H Eos % (Auto) 0.4 Baso % (Auto) 0.6 Lymph # (Auto) 0.8 L [place] # (Auto) 0.6 Eos # (Auto) 0.0 Baso # (Auto) 0.0 Abs Immat Gran (auto) 0.02 Absolute Neuts (auto) 3.7 Absolute Nucleated RBC 0.000 Nucleated RBC % (auto) 0.0 PT INR Anion Gap 17 Estim Creat Clear Calc 21.3 Estimated GFR 14 Random Glucose 87 Calcium 9.1 Magnesium 2.5 Total Bilirubin 0.8 Direct Bilirubin AST 12 ALT 11 Alkaline Phosphatase 104 Troponin I High Sens Total Protein 7.1 Albumin 4.1 Lipase Beta HCG, Quant Urine Color Urine Appearance Urine pH Ur Specific [place] Urine Protein Urine Glucose (UA) Urine Ketones Urine Blood Urine Nitrite Ur Leukocyte Esterase Urine RBC Urine WBC Ur Squamous Epith Cells Urine Bacteria Hyaline Casts COVID-19 (MARY) COVID-19 Clin Com Assessment and Plan (1) Acute kidney injury: Status: Acute (2) Anasarca: Status: Acute Plan 53/F with cirrhosis d/t MALDONADO, h/o DVT on coumadin, T2DM, GERD, neurogenic bladder here with DAVID possible d/t urinary retention from neurogenic bladder, diuretics and decrease PO intake Acute kidney injury likely (DAVID)--DDx urinary retention, , HRS, pre-renal -[place] -bladder US -IVF -Nephrology consult -avoid nephrotoxins -hold diuretics Abdominal pain--? related to ascietes, rule SBP by paracentesis Moderate to large ascites + abdominal pain. -paracentesis History of DVT, INR 4 -hold coumadin Type 2 diabetes mellitus, diet control, BS <100, check A1C GERD. - Omeprazole. Mood disorder. -Continue home meds. Hx of cervical CA s/p radiation. DVT prophylaxis: On warfarin GI prophylaxis: Omeprazole Code status: Full Need for inpt: severe Acute renal failure work up and managment \ Quality Stroke Does the patient have a stroke diagnosis?: No VTE Prior VTE?: No VTE Risk Level:: Medical - moderate - high VTE Device Contraindication: Treatment Not Indicated VTE Drug Contraindication: N/A - Med Ordered
[2024-01-11] MEDS: 0.9 % Sodium Chloride Flush 3 ML SYRINGE IVFLUSH ×3 (07:26→21:28)
--- NOTE | 2024-01-11 07:32 | PC.NURSE ---
Care of Pt assumed at change of shift in [facility]. 20g to RAC flushes without issue. Bladder scan performed by overnight ABDELRAHMAN Petty for 684. Pt able to void shortly after, repeat bladder scan by this RN and shows 590. Pt offers no complaints at this time. Pt will be moving to overflow; ABDELRAHMAN Calle given report.
[2024-01-11 07:37] LABS: Estimated Average Glucose 97 mg/dL; Hemoglobin A1C 106.6015 umol/L; Total Hemoglobin (HGBA1C) 3395.9945 umol/L
[2024-01-11] MEDS: Lactated Ringers 1,000 ML 80 ML IVCONT ×2 (09:12→22:41)
--- NOTE | 2024-01-11 09:13 | PM.CNNEP ---
History of Present Illness Reason for Consult Consult date: 01/11/24 Chief Complaint Chief complaint: Acute Kidney Injury History of Present Illness Narrative: Pt is a 53 y/o female with a medical history end stage liver disease (MALDONADO cirrhosis), cervical cancer s/p radiation, chronic lower extremity lymphedema, DVT (on coumadin), and hx of DAVID 2/2 neurogenic bladder with recurrent obstruction. presented to ED on 01/09 with epigastric and pelvic pain x4 days, along with decreased UOP despite continued diuretic use Creatinine 0.88 in 01/09 was 3.22. 01/10 3.52 Urine is bland with small leukocyte esterase, no protein/blood or casts Nephrology consulted. CT abd/pelvis shows no hydronephrosis or nephrolithiasis. Also shows new L1 vertebral fracture, ?portal hypertension vs infectious/inflammatory peritonitis or underlying malignancy, along with cirrhotic liver and moderate to large volume ascites. patient reports she has been intermittently voiding though small amounts of clear yellow urine, last time was recently this a.m. denies flank pain, dysuria, blood in urine, urgency/frequency ongoing abdominal pain, reports mostly epigastric, though tender to lower abdomen with palpation as well denies shortness of breath, chest pain she denies use of NSAIDs, alcohol, cigarettes denies other new symptoms, concerns Review of Systems Constitutional: Reports fatigue and Denies fever(s) Denies dizziness Cardiovascular: Denies no additional cardiovascular complaints, Denies chest pain, Reports leg edema (reports unchanged chronic lymphedema) and Denies dyspnea Respiratory: Reports no additional respiratory complaints and Denies dyspnea Gastrointestinal: Reports abdominal pain, Denies melena, Reports constipation, Denies diarrhea and Denies vomiting Genitourinary: Denies hematuria, Reports difficulty voiding (reports some UOP but small amounts this a.m. ), Denies dysuria and Denies flank pain Musculoskeletal: Denies back pain and Denies tingling Skin/Breast: Denies rash Denies dizziness, Denies tingling and Denies tremor(s) Endocrine: Reports fatigue PMFSH Past Medical History Medical History Liver cirrhosis secondary to MALDONADO Obstructive uropathy Hyponatremia Cirrhosis of liver with ascites Acute kidney insufficiency UTI (urinary tract infection) Cervical cancer Lymphedema Cardiac arrest DVT (deep venous thrombosis) Social History Social History Household Members: Children Household Members Other:: Son, daughter Housing: Apartment Do you presently have visiting nurse or other home services: Yes Alcohol intake: never Comment: DAUGHTER STAYING OVERNIGHT Patient Tobacco Use Status: Never used Tobacco e-Cigarette/Vaping Use: Never Used Advance Directives Date on File: 01/03/23 service: No Meds Allergies Allergy/AdvReac Type Severity Reaction Status Date / Time No Known Allergies Allergy Verified 01/10/24 15:47 [No Known Allergies*] Active Medications: Current Medications Acetaminophen (Acetaminophen 325 Mg Tablet) 325 mg PO Q8H PRN PRN Reason: Fever >100.4 Lactated Ringer's (Lr) 1,000 mls @ 80 mls/hr IVCONT .[id number] [facility] Melatonin (Melatonin 3 Mg Tablet) 6 mg PO BEDTIME PRN PRN Reason: Insomnia Midodrine (Midodrine Hcl 5 Mg Tablet) 5 mg PO TID [facility] Last Admin: 01/11/24 00:29 Dose: 5 mg Omeprazole (Omeprazole 20 Mg Capsule.Dr) 20 mg PO DAILY@0630 [facility] Last Admin: 01/11/24 06:36 Dose: 20 mg Ondansetron HCl (Ondansetron Hcl 4 Mg/2 Ml Vial) 4 mg IVPUSH Q6H [facility] Last Admin: 01/11/24 06:34 Dose: 4 mg Oxycodone HCl (Oxycodone Hcl Immed Release 5 Mg Tablet) 2.5 mg PO Q8H PRN PRN Reason: abdominal pain Last Admin: 01/11/24 05:26 Dose: 2.5 mg Sodium Chloride (0.9 % Sodium Chloride Flush 3 Ml Syringe) 3 ml IVFLUSH QSHIFT [facility] Last Admin: 01/11/24 07:26 Dose: 3 ml Home Medications ?Medication ?Instructions ?Recorded ?Confirmed ?Last Taken ?Type bupropion HCl 200 mg tablet,12 hr 200 mg PO BID depressive disorder 01/03/23 01/11/24 01/10/24 09:00 History sustained-release hydroxyzine pamoate 25 mg capsule 25 mg PO TID PRN Anxiety 01/03/23 01/11/24 01/10/24 09:00 History loratadine 10 mg tablet 10 mg PO DAILY 01/03/23 01/11/24 01/10/24 09:00 History ondansetron HCl 4 mg tablet 4 mg PO BID Nausea And Vomiting 01/03/23 01/11/24 01/10/24 09:00 History risperidone microspheres 50 mg/2 50 mg IM Q2W 01/03/23 10/12/23 09/30/23 History mL intramuscular susp,ext release (Risperdal Consta) zolpidem 10 mg tablet 10 mg PO BEDTIME Insomnia 01/03/23 01/11/24 01/10/24 09:00 History benztropine 0.5 mg tablet 0.5 mg PO BID PRN dystonias 07/13/23 01/11/24 01/10/24 09:00 History nystatin 100,000 unit/gram topical 1 appl topical BID 07/13/23 01/11/24 01/10/24 09:00 History powder warfarin 4 mg tablet 8 mg PO WETHFR 07/13/23 10/12/23 10/11/23 History warfarin 6 mg tablet 9 mg PO SUSA 07/13/23 10/12/23 10/11/23 History furosemide 40 mg tablet 40 mg PO DAILY 08/05/23 01/11/24 01/10/24 09:00 History citalopram 40 mg tablet 40 mg PO DAILY depressive disorder 01/11/24 01/11/24 01/10/24 09:00 History warfarin 3 mg tablet 3 - 6 mg PO DAILY 01/11/24 Unknown History warfarin 5 mg tablet 5 - 10 mg PO DAILY 01/11/24 Unknown History Physical Exam Vital Signs: Last Vital Signs Temp 98.4 F 01/11/24 09:09 Pulse 60 01/11/24 09:09 Resp 16 01/11/24 09:09 BP 118/60 01/11/24 09:09 Pulse Ox 95 01/11/24 09:09 O2 Del Method Room Air 01/11/24 09:09 BMI result Body Mass Index 42.4 Const General: comfortable and no acute distress Orientation/consciousness: oriented to person, oriented to place and oriented to time Neck Neck: Yes no JVD Resp Effort & Inspection: able to speak in complete sentences Auscultation: clear to auscultation bilaterally Cardio Jugular venous distension: no JVD Rate: regular rate Rhythm: regular rhythm Heart sounds: S1 normal heart sound present and S2 normal heart sound present GI Inspection: Yes distended Palpation (GI): Soft to palpation, Tenderness to palpation present (GI) and Ascites present General: Yes no CVA tenderness Back/Spine/Pelvis Back: no CVA tenderness Skin Rashes: no rashes Neuro General: oriented to person, oriented to place and oriented to time Extrem General: Yes normal to inspection Right upper extremity: edema (non-pitting BLE edema- pt reports has chronic lymphedema ) Results Lab Results 01/11/24 04:41 01/11/24 04:41 Lab results: Chemistry 01/10/24 01/11/24 16:20 04:41 Sodium 136 135 Potassium 3.9 3.9 Carbon Dioxide 29 22 BUN 26 H 26 H Creatinine 3.22 H 3.52 H Calcium 9.4 9.1 Hematology 01/10/24 01/11/24 16:20 04:41 WBC 4.9 5.2 Hgb 13.7 D 13.0 Plt Count 285 D 213 D Urinalysis 01/10/24 16:20 Urine Color Yellow Urine Appearance Clear Urine pH 5.5 Ur Specific [place] 1.010 Urine Protein Negative Urine Glucose (UA) Negative Urine Ketones Negative Urine Blood Negative Urine Nitrite Negative Ur Leukocyte Esterase Small (1+) H Urine RBC 0-2 Urine WBC 0-5 Ur Squamous Epith Cells 0-2 Hyaline Casts 0-2 Assessment and Plan (1) Acute kidney injury: Status: Acute (2) Hepatorenal syndrome: Status: Acute (3) Urinary retention: Status: Acute Plan Most likely tubular injury unlikely to be GN or AIN given bland urine diff includes perinfectious GN compartment syndrome HRS on differential but less likely shall check C3 and C4 levels will also check urine sodium ordered 25% albumin 25GM q6h for three days recommend GI follow GI can determine whether to start octreotide no indication for renal replacement now shall closely follow Discussed with Dr Wily Mchugh Date of Service Date of Service: 01/11/24
--- NOTE | 2024-01-11 10:16 | PHA.MEDREC ---
Addendum entered by Elliott Parks [facility] 01/12/24 11:40: MED REC CHECKED BY [facility] Addendum entered by Christiane Sanford 01/12/24 10:27: Following up from yesterday 01/12/24 Called [facility] ([phone]) spoke to Eve her direct number is ([phone]) she was able to confirm last dose of Risperdal consta 50 mg Q2week was Tuesday12/30/23 and next dose is Tuesday01/13/24. she was only able to confirm Warfarin dose was 7 mg on days 12/29/23 to 01/02/24 patient was to get labs on 01/05/24 , however there was a missed visit from nurse on 01/06/24 , so she couldn't confirm most recent dose. Eve gave me patients classification case manager's name and phone number. left message with Sarah ([phone]). she later called back and confirmed patient was to take Warfarin 8 mg 3 times a week and Warfarin 7 mg 4 times a week from 01/03/24 to 01/10/24. Sarah states the she doesn't know if patient took her medications on 01/10/24 before she came to [facility], however patient is good with taking her medication. Original Note: Pharmacy Consult ? Medication Reconciliation Pharmacy has completed the medication reconciliation. Spoke to patient at bedside with help of japanese interpreter, she was able to tell us most of her medications with some prompting. She has a nurse who comes to give her the Warfarin based on her clinic levels as well as her Risperdal Consta, the number for them is [phone]. I called to confirm Warfarin doses and Risperdal last dose but the nurse wasn't available. Will call back later to confirm.
--- NOTE | 2024-01-11 12:44 | PC.NURSE ---
verified Zofran frequency with pharmacy ,ok to administer q 6 hrs
[2024-01-11] MEDS: Albumin Human 25 % 100 ML IV ×2 (14:24→21:35)
--- NOTE | 2024-01-11 14:43 | PC.NURSE ---
Med Rec needs to be completed,pharmacy notified,they are aware and in process of updating it
--- NOTE | 2024-01-11 14:56 | PC.NURSE ---
Addendum entered by Elizabeth Lujan RN 01/11/24 15:01: Patient bladder scanned for >732 ml ,US notified Original Note: [facility]ister clamped at 1332 per US request,patient able to drink 900ml,US notified
--- NOTE | 2024-01-11 15:40 | MHC.CM.PN ---
This CM met with pt with the assistance of a audio video technician. Pt lives at home with her son and daughter who will transport her home. Pt uses a walker. Pts son is her [employer]. Pt is active with [facility] services. HCP on file and verified. PCP: Dr. Kristin Todd
[2024-01-11 16:34] LABS: Sodium Urine Random < 20.0 mmol/L
[2024-01-12] MEDS: Zolpidem Tartrate 5 MG TABLET 10 MG PO ×2 (01:10→20:44)
[2024-01-12] MEDS: Lactulose 20 GM/30 ML SOLUTION PO (01:11)
[2024-01-12] MEDS: ondansetron HCL 4 MG/2 ML VIAL IVPUSH ×5 (01:12→23:34)
[2024-01-12 03:51] VITALS: BP 113/61; PULSE 85; RESP 16; TEMP 36.9; O2SAT 92
[2024-01-12] MEDS: Albumin Human 25 % 100 ML IV ×4 (04:39→20:44)
[2024-01-12 06:38] VITALS: BP 108/63; PULSE 91; RESP 18; TEMP 36.6; O2SAT 93
[2024-01-12] MEDS: Omeprazole 20 MG CAPSULE.DR PO (06:39)
[2024-01-12 07:49] VITALS: BP 107/61; PULSE 86; RESP 18; TEMP 36.4; O2SAT 93
[2024-01-12] MEDS: Lactated Ringers 1,000 ML 80 ML IVCONT ×2 (09:14→20:50)
[2024-01-12] MEDS: Midodrine HCl 5 MG TABLET PO ×3 (09:14→20:44)
[2024-01-12 10:06] LABS: Anion Gap 11 (12-20); Blood Urea Nitrogen 8 mg/dL (9-16); Calcium 8.8 mg/dL (8.4-10.2); Carbon Dioxide 28 mmol/L (22-29); Chloride 106 mmol/L (96-108); Creatinine Clr Calc Pharmacy 93.6; Estimated Glomerular Filt Rate > 60; Glucose Random 86 mg/dL (60-115); Potassium 3.9 mmol/L (3.3-5.1); Sodium 141 mmol/L (135-145)
[2024-01-12 10:18] LABS: INTERNATIONAL NORM RATIO 3.2 (0.9-1.1)
[2024-01-12] MEDS: Tamsulosin HCL 0.4 MG CAPSULE PO (13:21)
[2024-01-12] MEDS: buPROPion HCl XL 150 MG TAB.ER.24H 450 MG PO (13:21)
[2024-01-12] MEDS: Loratadine 10 MG TABLET PO (13:21)
--- NOTE | 2024-01-12 13:41 | PM.PNNEP ---
Subjective Subjective Date of Service: 01/12/24 Interval history: f/u on DAVID, abdominal pain c/o some abdominal pain- improving Physical Exam Vital Signs: Vital Signs: Last Vital Signs Temp 97.5 F 01/12/24 07:49 Pulse 86 01/12/24 07:49 Resp 18 01/12/24 07:49 BP 107/61 01/12/24 07:49 Pulse Ox 93 01/12/24 07:49 O2 Del Method Room Air 01/12/24 07:49 BMI result Body Mass Index 42.4 cvs: s1s2 Rs; cta Abd; soft - obese francisco insitu Objective Data Labs 01/11/24 04:41 01/12/24 09:02 Labs: Laboratory Results - last 24 hr 01/11/24 01/12/24 01/12/24 15:41 05:55 09:02 Hold Purple Top SEE NOTE PT INR Sodium 141 Potassium 3.9 Chloride 106 Carbon Dioxide 28 Anion Gap 11 L BUN 8 L Creatinine 0.80 Estim Creat Clear Calc 93.6 Estimated GFR > 60 Random Glucose 86 Calcium 8.8 Ur Random Sodium < 20.0 01/12/24 09:55 Hold Purple Top PT 37.0 H D INR 3.2 H Sodium Potassium Chloride Carbon Dioxide Anion Gap BUN Creatinine Estim Creat Clear Calc Estimated GFR Random Glucose Calcium Ur Random Sodium Microbiology Microbiology Results: Microbiology 01/10/24 Unknown Urine clean catch - Clean Catch Midstream Urine Culture - Final Procedures Date of Service Date of Service: 01/12/24 Assessment & Plan Assessment and plan (1) Acute kidney injury: Status: Acute Plan 52 y.o. 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 Progress Note: Quality Stroke Does the patient have a stroke diagnosis?: No
[2024-01-12 15:06] VITALS: BP 117/59; PULSE 96; RESP 16; TEMP 36.2; O2SAT 97
[2024-01-12] MEDS: 0.9 % Sodium Chloride Flush 3 ML SYRINGE IVFLUSH ×2 (16:06→20:53)
[2024-01-12] MEDS: Spironolactone 25 MG TABLET PO (17:36)
[2024-01-12] MEDS: polyethylene glycoL 3350 17 GM POWD.PACK PO (17:39)
--- NOTE | 2024-01-12 17:46 | HO.PM.IMPN ---
Subjective Subjective Date of Service: 01/12/24 Interval History: f/u on DAVID, abdominal pain she is feeling better, renal function has returned to baseline Physical Exam Vital Signs: Vital Signs: Last Vital Signs Temp 97.1 F 01/12/24 15:06 Pulse 96 01/12/24 15:06 Resp 16 01/12/24 15:06 BP 117/59 L 01/12/24 15:06 Pulse Ox 97 01/12/24 15:06 O2 Del Method Room Air 01/12/24 15:06 BMI result Body Mass Index 42.4 General: AO X 3, no acute distress Resp: CTA bilateral CVS: S1,S2,RRR GI: +BS, NT, abdominal distention, +fluid wave Skin: No rash Neuro: motor grossly intact Psych: appropriate affect Objective Data Active Medications Acetaminophen (Acetaminophen 325 Mg Tablet) 325 mg PO Q8H PRN PRN Reason: Fever >100.4 Benztropine Mesylate (Benztropine Mesylate 0.5 Mg Tablet) 0.5 mg PO BID PRN PRN Reason: dystonias Bupropion HCl (Bupropion Hcl Xl 150 Mg Tab.Er.24h) 450 mg PO DAILY [facility] Last Admin: 01/12/24 13:21 Dose: 450 mg Documented By: JAMES Escitalopram Oxalate (Escitalopram Oxalate 20 Mg Tablet) 20 mg PO DAILY [facility] Furosemide (Furosemide 40 Mg Tablet) 40 mg PO DAILY [facility]; Protocol Hydroxyzine HCl (Hydroxyzine Hcl 25 Mg Tablet) 25 mg PO TID PRN PRN Reason: Anxiety Lactated Ringer's (Lr) 1,000 mls @ 80 mls/hr IVCONT .[id number] [facility] Last Admin: 01/12/24 09:14 Dose: 80 mls/hr Documented By: JAMES Albumin Human (Kedbumin 25 %) 100 mls @ 100 mls/hr IV Q6H [facility] Last Admin: 01/12/24 16:04 Dose: 100 mls/hr Documented By: JAMES Loratadine (Loratadine 10 Mg Tablet) 10 mg PO DAILY [facility] Last Admin: 01/12/24 13:21 Dose: 10 mg Documented By: JAMES Melatonin (Melatonin 3 Mg Tablet) 6 mg PO BEDTIME PRN PRN Reason: Insomnia Midodrine (Midodrine Hcl 5 Mg Tablet) 5 mg PO TID [facility] Last Admin: 01/12/24 16:04 Dose: 5 mg Documented By: JAMES Nystatin (Nystatin Powder 15 Gm Bottle) 1 appl TOPICAL BID [facility]; Protocol Last Admin: 01/12/24 13:25 Dose: Not Given Documented By: JAMES Non-Admin Reason: Med Not Available Omeprazole (Omeprazole 20 Mg Capsule.Dr) 20 mg PO DAILY@0630 [facility] Last Admin: 01/12/24 06:39 Dose: 20 mg Documented By: MARIO Ondansetron HCl (Ondansetron Hcl 4 Mg/2 Ml Vial) 4 mg IVPUSH Q6H [facility] Last Admin: 01/12/24 17:36 Dose: 4 mg Documented By: JAMES Oxycodone HCl (Oxycodone Hcl Immed Release 5 Mg Tablet) 2.5 mg PO Q8H PRN PRN Reason: abdominal pain Last Admin: 01/11/24 05:26 Dose: 2.5 mg Documented By: CORNELL Polyethylene Glycol (Polyethylene Glycol 3350 17 Gm Powd.Pack) 17 gm PO DAILY PRN PRN Reason: constipation Last Admin: 01/12/24 17:39 Dose: 17 gm Documented By: JAMES Sodium Chloride (0.9 % Sodium Chloride Flush 3 Ml Syringe) 3 ml IVFLUSH [facility] Last Admin: 01/12/24 16:06 Dose: 3 ml Documented By: JAMES Spironolactone (Spironolactone 25 Mg Tablet) 25 mg PO BID@0900,1800 [facility]; Protocol Last Admin: 01/12/24 17:36 Dose: 25 mg Documented By: JAMES Tamsulosin HCl (Tamsulosin Hcl 0.4 Mg Capsule) 0.4 mg PO DAILY [facility] Last Admin: 01/12/24 13:21 Dose: 0.4 mg Documented By: JAMES Warfarin Sodium (Warfarin Sodium 1 Mg Tablet) [facility] Last Admin: 01/12/24 13:19 Dose: Not Given Documented By: JAMES Non-Admin Reason: Med on hold Warfarin Sodium (Warfarin Sodium 4 Mg Tablet) [facility] Warfarin Sodium (Warfarin Sodium 3 Mg Tablet) 3 mg PO DAILY@1800 [facility] Last Admin: 01/12/24 15:08 Dose: Not Given Documented By: JAMES Non-Admin Reason: Physician Held Med Zolpidem Tartrate (Zolpidem Tartrate 5 Mg Tablet) 10 mg PO BEDTIME [facility] Labs 01/11/24 04:41 01/12/24 09:02 Labs: Laboratory Results - last 24 hr 01/12/24 01/12/24 01/12/24 05:55 09:02 09:55 Hold Purple Top SEE NOTE PT 37.0 H D INR 3.2 H Anion Gap 11 L Estim Creat Clear Calc 93.6 Estimated GFR > 60 Random Glucose 86 Calcium 8.8 Microbiology Microbiology Results: Microbiology 01/10/24 Unknown Urine Culture - Final Urine clean catch - Clean Catch Midstream Assessment and Plan (1) Acute kidney injury: Status: Acute (2) Anasarca: Status: Acute Plan 53/F with cirrhosis d/t MALDONADO, h/o DVT on coumadin, T2DM, GERD, neurogenic bladder here with DAVID possible d/t urinary retention from neurogenic bladder, diuretics and decrease PO intake Acute kidney injury likely (DAVID)--Due to neurogenic bladder, resolved with francisco -keep francisco -urology consult -stop IvF -Nephrology ([facility]) following -avoid nephrotoxins -hold diuretics Abdominal pain--? related to ascietes, rule SBP by paracentesis Moderate to large ascites + abdominal pain. -paracentesis History of DVT, -hold coumadin -restart tommorrow after paracentesis Type 2 diabetes mellitus, diet control, BS <100, check A1C GERD. - Omeprazole. Mood disorder. -Continue home meds. Hx of cervical CA s/p radiation. DVT prophylaxis: On warfarin GI prophylaxis: Omeprazole Code status: Full Need for inpt: severe Acute renal failure work up and managment Quality Stroke Does the patient have a stroke diagnosis?: No VTE Prior VTE?: No VTE Risk Level:: Medical - moderate - high VTE Device Contraindication: Treatment Not Indicated VTE Drug Contraindication: N/A - Med Ordered
[2024-01-12 19:27] VITALS: BP 110/55; PULSE 93; RESP 17; TEMP 36.3; O2SAT 93
[2024-01-12] MEDS: Nystatin Powder 15 GM BOTTLE 1 APPL TOPICAL (20:50)
[2024-01-12 23:36] VITALS: BP 105/58; PULSE 64; RESP 16; TEMP 36.1; O2SAT 93
[2024-01-13] VITALS (8 sets, daily range): BP systolic 102–118; BP diastolic 54–65; PULSE 53–92; RESP 16–18; TEMP 36.2–36.3; O2SAT 92–99
[2024-01-13] MEDS: Albumin Human 25 % 100 ML IV ×4 (03:21→20:01)
[2024-01-13] MEDS: Omeprazole 20 MG CAPSULE.DR PO (05:57)
[2024-01-13] MEDS: ondansetron HCL 4 MG/2 ML VIAL IVPUSH ×4 (05:57→23:21)
[2024-01-13 07:13] LABS: INTERNATIONAL NORM RATIO 1.8 (0.9-1.1); Prothrombin Time 20.7 SEC (10.9-12.4)
[2024-01-13 07:43] LABS: Anion Gap 13 (12-20); Blood Urea Nitrogen 8 mg/dL (9-16); Calcium 9.3 mg/dL (8.4-10.2); Carbon Dioxide 26 mmol/L (22-29); Chloride 107 mmol/L (96-108); Creatinine Clr Calc Pharmacy 106.9; Estimated Glomerular Filt Rate > 60; Glucose Random 82 mg/dL (60-115); Potassium 4.3 mmol/L (3.3-5.1); Sodium 142 mmol/L (135-145)
[2024-01-13] MEDS: Furosemide 40 MG TABLET PO (10:19)
[2024-01-13] MEDS: Spironolactone 25 MG TABLET PO ×2 (10:19→18:07)
[2024-01-13] MEDS: Midodrine HCl 5 MG TABLET PO ×3 (10:19→19:56)
[2024-01-13] MEDS: Escitalopram Oxalate 20 MG TABLET PO (10:19)
[2024-01-13] MEDS: Tamsulosin HCL 0.4 MG CAPSULE PO (10:19)
--- NOTE | 2024-01-13 10:19 | MHC.CM.PN ---
Addendum entered by Shaunna Alexander RN 01/13/24 14:04: Per MD, patient will dc tomorrow w/ francisco in place and f/u w/ urology outpatient. [facility] unable to manage francisco (patient in program). Son/dtr to manage francisco, as they have in the past. CM will continue to follow. Original Note: Per MD rounds patient not medically cleared for dc at this time, potentially later today. [facility] updated. CM will continue to follow.
[2024-01-13] MEDS: buPROPion HCl XL 150 MG TAB.ER.24H 450 MG PO (10:20)
[2024-01-13] MEDS: Loratadine 10 MG TABLET PO (10:20)
[2024-01-13 10:38] LABS: Complement C3 120 mg/dL (83-193)
--- NOTE | 2024-01-13 13:40 | PM.PNNEP ---
Subjective Subjective Date of Service: 01/13/24 Interval history: f/u on DAVID, abdominal pain c/o some abdominal pain- improving Physical Exam Vital Signs: Vital Signs: Last Vital Signs Temp 97.3 F 01/13/24 11:47 Pulse 92 01/13/24 11:47 Resp 18 01/13/24 11:47 BP 110/56 L 01/13/24 11:47 Pulse Ox 95 01/13/24 11:47 O2 Del Method Room Air 01/13/24 11:47 BMI result Body Mass Index 42.4 cvs: s1s2 Rs; cta Abd; soft - obese francisco insitu Objective Data Labs 01/11/24 04:41 01/13/24 05:45 Labs: Laboratory Results - last 24 hr 01/12/24 01/13/24 01/13/24 06:00 05:45 07:01 PT 20.7 H D INR 1.8 H Sodium 142 Potassium 4.3 Chloride 107 Carbon Dioxide 26 Anion Gap 13 BUN 8 L Creatinine 0.70 Estim Creat Clear Calc 106.9 Estimated GFR > 60 Random Glucose 82 Calcium 9.3 Complement C3 120 Complement C4 29 Microbiology Microbiology Results: Microbiology 01/10/24 Unknown Urine clean catch - Clean Catch Midstream Urine Culture - Final Procedures Date of Service Date of Service: 01/13/24 Assessment & Plan Assessment and plan (1) Acute kidney injury: Status: Acute Plan 52 y.o. 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 Progress Note: Quality Stroke Does the patient have a stroke diagnosis?: No
--- NOTE | 2024-01-13 15:10 | HO.PM.IMPN ---
Subjective Subjective Date of Service: 01/13/24 Interval History: Paracentesis canceled secondary to lack of fluid. Francisco draining well Review of Systems All data through an tier and detonator Denies chest pain Denies shortness of breath Denies nausea vomiting diarrhea Denies fever chills Physical Exam Vital Signs: Vital Signs: Last Vital Signs Temp 97.3 F 01/13/24 15:07 Pulse 80 01/13/24 15:07 Resp 18 01/13/24 15:07 BP 108/56 L 01/13/24 15:07 Pulse Ox 99 01/13/24 15:07 O2 Del Method Room Air 01/13/24 15:07 BMI result Body Mass Index 42.4 Const: Other: Awake alert no acute distress Resp: Other: Clear to auscultation bilaterally no rales rhonchi or wheezes Cardio: Other: No S4; positive S1-S2; no S3 murmurs rubs or gallops GI: Other: Soft nontender nondistended normoactive bowel sounds : Other: Francisco in place Extrem: Other: No edema bilaterally Objective Data Active Medications Acetaminophen (Acetaminophen 325 Mg Tablet) 325 mg PO Q8H PRN PRN Reason: Fever >100.4 Benztropine Mesylate (Benztropine Mesylate 0.5 Mg Tablet) 0.5 mg PO BID PRN PRN Reason: dystonias Bupropion HCl (Bupropion Hcl Xl 150 Mg Tab.Er.24h) 450 mg PO DAILY [facility] Last Admin: 01/13/24 10:20 Dose: 450 mg Documented By: JAMES Escitalopram Oxalate (Escitalopram Oxalate 20 Mg Tablet) 20 mg PO DAILY [facility] [place] Last Admin: 01/13/24 10:19 Dose: 20 mg Documented By: JAMES Furosemide (Furosemide 40 Mg Tablet) 40 mg PO DAILY [facility] [place]; Protocol Last Admin: 01/13/24 10:19 Dose: 40 mg Documented By: JAMES Hydroxyzine HCl (Hydroxyzine Hcl 25 Mg Tablet) 25 mg PO TID PRN PRN Reason: Anxiety Albumin Human (Kedbumin 25 %) 100 mls @ 100 mls/hr IV Q6H [facility] [place] Last Infusion: 01/13/24 12:11 Dose: Infused Documented By: JAMES Loratadine (Loratadine 10 Mg Tablet) 10 mg PO DAILY [facility] [place] Last Admin: 01/13/24 10:20 Dose: 10 mg Documented By: JAMES Melatonin (Melatonin 3 Mg Tablet) 6 mg PO BEDTIME PRN PRN Reason: Insomnia Midodrine (Midodrine Hcl 5 Mg Tablet) 5 mg PO TID [facility] [place] Last Admin: 01/13/24 10:19 Dose: 5 mg Documented By: JAMES Nystatin (Nystatin Powder 15 Gm Bottle) 1 appl TOPICAL BID [facility] [place]; Protocol Last Admin: 01/13/24 10:34 Dose: Not Given Documented By: JAMES Non-Admin Reason: Previously Administered Omeprazole (Omeprazole 20 Mg Capsule.) 20 mg PO DAILY@0630 [facility] [place] Last Admin: 01/13/24 05:57 Dose: 20 mg Documented By: NICOLÁS Ondansetron HCl (Ondansetron Hcl 4 Mg/2 Ml Vial) 4 mg IVPUSH Q6H [facility] [place] Last Admin: 01/13/24 12:16 Dose: 4 mg Documented By: DOBROConchita Oxycodone HCl (Oxycodone Hcl Immed Release 5 Mg Tablet) 2.5 mg PO Q8H PRN PRN Reason: abdominal pain Last Admin: 01/11/24 05:26 Dose: 2.5 mg Documented By: CORNELL Polyethylene Glycol (Polyethylene Glycol 3350 17 Gm Powd.Pack) 17 gm PO DAILY PRN PRN Reason: constipation Last Admin: 01/12/24 17:39 Dose: 17 gm Documented By: JAMES Sodium Chloride (0.9 % Sodium Chloride Flush 3 Ml Syringe) 3 ml IVFLUSH QSHIFT [facility] [place] Last Admin: 01/13/24 07:28 Dose: Not Given Documented By: JAMES Non-Admin Reason: IV Running Spironolactone (Spironolactone 25 Mg Tablet) 25 mg PO BID@0900,1800 [facility] [place]; Protocol Last Admin: 01/13/24 10:19 Dose: 25 mg Documented By: JAMES Tamsulosin HCl (Tamsulosin Hcl 0.4 Mg Capsule) 0.4 mg PO DAILY [facility] [place] Last Admin: 01/13/24 10:19 Dose: 0.4 mg Documented By: JAMES Warfarin Sodium (Warfarin Sodium 3 Mg Tablet) 6 mg PO DAILY@1800 [facility] [place] Zolpidem Tartrate (Zolpidem Tartrate 5 Mg Tablet) 10 mg PO BEDTIME [facility] [place] Last Admin: 01/12/24 20:44 Dose: 10 mg Documented By: NICOLÁS Labs 01/11/24 04:41 01/13/24 05:45 Labs: Laboratory Results - last 24 hr 01/12/24 01/13/24 01/13/24 06:00 05:45 07:01 PT 20.7 H D INR 1.8 H Anion Gap 13 Estim Creat Clear Calc 106.9 Estimated GFR > 60 Random Glucose 82 Calcium 9.3 Complement C3 120 Complement C4 29 Microbiology Microbiology Results: Microbiology 01/10/24 Unknown Urine Culture - Final Urine clean catch - Clean Catch Midstream Assessment and Plan (1) Acute kidney injury: Status: Acute Plan 53/F with cirrhosis d/t MALDONADO, h/o DVT on coumadin, T2DM, GERD, neurogenic bladder here with DAVID possible d/t urinary retention from neurogenic bladder, diuretics and decrease PO intake 1.Acute kidney injury likely (DAVID)--Due to neurogenic bladder, resolved with francisco -urology consult; question suprapubic line. Unable to comply with home self catheterization -francisco until seen by Urology -urology consult -DAVID resolved with Francisco; follow renals divalent 2.Moderate to large ascites (none founded on ultrasound by IR) -paracentesis canceled 3.History of DVT, -discuss with pharmacy; Coumadin restarted -check daily INRs 4.Type 2 diabetes mellitus -acceptable control; no therapies -follow clinically warfarin Full code Need for inpt: severe Acute renal failure work up and managment; specialty consult Quality Stroke Does the patient have a stroke diagnosis?: No VTE Prior VTE?: No VTE Risk Level:: Medical - moderate - high VTE Device Contraindication: Treatment Not Indicated VTE Drug Contraindication: N/A - Med Ordered
[2024-01-13] MEDS: 0.9 % Sodium Chloride Flush 3 ML SYRINGE IVFLUSH ×2 (15:54→19:57)
[2024-01-13] MEDS: Acetaminophen 325 MG TABLET PO (18:07)
[2024-01-13] MEDS: Warfarin Sodium 3 MG TABLET 6 MG PO (18:07)
[2024-01-13] MEDS: Zolpidem Tartrate 5 MG TABLET 10 MG PO (19:57)
[2024-01-13] MEDS: Nystatin Powder 15 GM BOTTLE 1 APPL TOPICAL (20:01)
[2024-01-14] MEDS: Albumin Human 25 % 100 ML IV (03:37)
[2024-01-14 03:57] VITALS: BP 135/68; PULSE 54; RESP 16; TEMP 36.4; O2SAT 95
[2024-01-14] MEDS: ondansetron HCL 4 MG/2 ML VIAL IVPUSH ×2 (04:43→11:43)
[2024-01-14] MEDS: Omeprazole 20 MG CAPSULE.DR PO (04:43)
[2024-01-14] MEDS: oxyCODONE HCl Immed Release 5 MG TABLET 2.5 MG PO (04:43)
[2024-01-14 07:28] LABS: MANUAL DIFF FLAG NO
[2024-01-14 07:32] LABS: Basophils Percent Auto 0.4 % (0-2); Eosinophils Absolute Auto 0.2 X10*3/uL (0.0-0.4); Hematocrit 38.7 % (37.0-47.0); Hemoglobin 12.3 g/dl (12.0-16.0); INTERNATIONAL NORM RATIO 1.3 (0.9-1.1); Imm Gran Abs Auto 0.01 X10*3/uL (0.00-0.03); Imm Gran Pct Auto 0.2 % (0.0-0.4); Lymphocytes Absolute Auto 0.7 X10*3/uL (1.2-4.9); Lymphocytes Percent Auto 12.8 % (20-40); Mean Corpuscular HGB Conc 31.8 g/dl (31.0-35.0); Mean Corpuscular Hemoglobin 27.8 pg (27.0-33.0); Mean Corpuscular Volume 87.4 fL (80.0-98.0); Mean Platelet Volume 10.9 fL (9.4-12.3); Monocytes Absolute Auto 0.3 X10*3/uL (0.1-1.2); Monocytes Percent Auto 5.9 % (2-11); Neutrophils Absolute Auto 4.4 x10*3/uL (2.0-8.3); Neutrophils Percent Auto 77.7 % (45-73); Platelet Count 202 X10*3/uL (160-400); Red Blood Count 4.43 X10*6/uL (4.20-5.50); Red Cell Distribution Width 14.6 % (11.0-16.0); White Blood Count 5.6 X10*3/uL (4.8-10.8)
[2024-01-14 07:36] VITALS: BP 113/53; PULSE 66; RESP 18; TEMP 36.9; O2SAT 92
[2024-01-14 07:57] LABS: Alanine Aminotransferase 13 U/L (0-31); Albumin Level 5.6 g/dL (3.5-5.0); Alkaline Phosphatase 73 U/L (39-117); Anion Gap 16 (12-20); Aspartate Amino Transferase 15 U/L (5-31); Blood Urea Nitrogen 11 mg/dL (9-16); Calcium 10.1 mg/dL (8.4-10.2); Carbon Dioxide 27 mmol/L (22-29); Chloride 103 mmol/L (96-108); Creatinine Clr Calc Pharmacy 91.3; Estimated Glomerular Filt Rate > 60; Glucose Fasting 94 mg/dL (60-99); Potassium 3.7 mmol/L (3.3-5.1); Sodium 142 mmol/L (135-145); Total Protein 7.7 g/dL (6.5-8.0)
[2024-01-14 08:06] LABS: Bilirubin Total 1.1 mg/dL (0.0-1.0)
[2024-01-14 08:24] VITALS: BP 113/53
[2024-01-14] MEDS: Tamsulosin HCL 0.4 MG CAPSULE PO (08:24)
[2024-01-14] MEDS: Spironolactone 25 MG TABLET PO (08:24)
[2024-01-14 08:25] VITALS: BP 113/53
[2024-01-14] MEDS: Furosemide 40 MG TABLET PO (08:25)
[2024-01-14] MEDS: Midodrine HCl 5 MG TABLET PO ×2 (08:25→14:54)
[2024-01-14] MEDS: Loratadine 10 MG TABLET PO (08:25)
[2024-01-14] MEDS: Escitalopram Oxalate 20 MG TABLET PO (08:25)
[2024-01-14] MEDS: 0.9 % Sodium Chloride Flush 3 ML SYRINGE IVFLUSH (08:25)
[2024-01-14] MEDS: buPROPion HCl XL 150 MG TAB.ER.24H 450 MG PO (08:25)
[2024-01-14] MEDS: Nystatin Powder 15 GM BOTTLE 1 APPL TOPICAL (08:26)
[2024-01-14] MEDS: Acetaminophen 325 MG TABLET PO (08:42)
[2024-01-14 11:55] VITALS: BP 113/61; PULSE 70; RESP 16; TEMP 36.6; O2SAT 98
--- NOTE | 2024-01-14 12:19 | PM.DS ---
DS: Providers Provider Date of Service: 01/14/24 Date of admission: 01/10/24 22:59 Date of discharge: 01/14/24 Primary care physician: Kristin Todd MD Consults: 01/10/24 23:32 Consult to Nephrology Routine Consulting Provider: [facility] Reason for consultation: DAVID Has provider been notified: No 01/13/24 15:09 Consult to Urology Routine Consulting Provider: [facility] Reason for consultation: neurogenic bladder Has provider been notified: No DS: Diagnosis Discharge Diagnosis (1) Acute kidney injury: Status: Acute (2) Neurogenic bladder: Status: Acute DS: Summary Hospital Course Hospital Course: 53 years old woman past medical history significant for liver cirrhosis secondary to MALDONADO, DAVID due to neurogenic bladder with recurrent obstruction and DVT on warfarin presents to the emergency department complaining of epigastric and pelvic abdominal pain that started Tuesday. She described the pain as dull, constant without radiation. The intensity of the pain is 5/10. She noted increased abdominal girth. She does have chronic lymphedema and denied worsening of edema. She reports feeling very nauseous and having poor appetite. She reported suggestive fever. Denies chills, chest pain, shortness on breath, cough or nasal congestion. She did not report any pain with urination. Denied any episodes of vomiting or diarrhea. She also has not been eating or drinking much. She also noted decreased urinary frequency despite she has been taking furosemide and spironolactone. She continue taking same doses of furosemide and spironolactone. In the ED, she was found to have normal vital signs. Blood workup normal WBC, hemoglobin and platelets. INR was not obtained. There are no electrolyte imbalances. Creatinine increased from 0.88 --> 3.22 and BUN from 11--> 26. Albumin, lipase and LFTs are normal. Urinalysis did not show finding consistent with UTI. CXR is negative for pneumonia, infiltrate, consolidation pleural effusions. Abdomen pelvis CT scan possible new burst fracture of L1, changes possibly consistent with infectious/inflammatory peritonitis or portal hypertension, cirrhotic liver with portal hypertension and moderate to large volume ascites, constipation and chronic encapsulated retroperitoneal collection posterior to left kidney. ECG showed normal sinus rhythm with a heart rate 94 beats per minute w/o ischemic changes. Hospital Course Admitted to general medical floor; Mcallister placed without issue. Initial creatinine 3.52; next morning after Mcallister creatinine 0.80. Seen by renal who agrees this is all postobstructive. At this point in time patient has failed home catheterization. Discussed with Urology. Patient has an appointment February 01 in their office. Will discharge with Mcallister to be followed up with urology as scheduled Time Attestation Discharge Coordination Time (in mins): 35 Quality: Safe Use of Opioids Does Pt have an Active Cancer Diagnosis on the Problem List?: No Quality: Stroke Does the patient have a stroke diagnosis?: No Physical Exam Vital Signs: Vital Signs: Last Vital Signs Temp 97.8 F 01/14/24 11:55 Pulse 70 01/14/24 11:55 Resp 16 01/14/24 11:55 BP 113/61 01/14/24 11:55 Pulse Ox 98 01/14/24 11:55 O2 Del Method Room Air 01/14/24 11:55 BMI result Body Mass Index 42.4 Const: Other: Awake alert no acute distress Resp: Other: Clear to auscultation bilaterally no rales rhonchi or wheezes Cardio: Other: No S4; positive S1-S2; no S3 murmurs rubs or gallops GI: Other: Soft nontender nondistended normoactive bowel sounds : Other: Mcallister in place Extrem: Other: Bilateral lower extremity pitting edema.. (history of anasarca) DS: Data Data Completed and Pending Completed studies during hospitalization [Text1]: Procedures Drainage of Peritoneal Cavity, Percutaneous Approach (07/13/23) Drainage of Peritoneal Cavity, Percutaneous Approach, Diagnostic (10/11/23) Transfusion of Nonautologous Frozen Plasma into Peripheral Vein, Percutaneous Approach (08/05/23) Labs on day of discharge: Laboratory Results - last 24 hr 01/14/24 06:10 WBC 5.6 RBC 4.43 Hgb 12.3 Hct 38.7 MCV 87.4 MCH 27.8 MCHC 31.8 RDW 14.6 Plt Count 202 MPV 10.9 Immature Gran % (Auto) 0.2 Neut % (Auto) 77.7 H Lymph % (Auto) 12.8 L Humphreys % (Auto) 5.9 Eos % (Auto) 3.0 Baso % (Auto) 0.4 Lymph # (Auto) 0.7 L Humphreys # (Auto) 0.3 Eos # (Auto) 0.2 Baso # (Auto) 0.0 Abs Immat Gran (auto) 0.01 Absolute Neuts (auto) 4.4 Absolute Nucleated RBC 0.000 Nucleated RBC % (auto) 0.0 PT 15.0 H D INR 1.3 H Sodium 142 Potassium 3.7 Chloride 103 Carbon Dioxide 27 Anion Gap 16 BUN 11 Creatinine 0.82 Estim Creat Clear Calc 91.3 Estimated GFR > 60 Fasting Glucose 94 Calcium 10.1 D Total Bilirubin 1.1 H AST 15 ALT 13 Alkaline Phosphatase 73 Total Protein 7.7 Albumin 5.6 H Discharge Plan Discharge Anticipated Discharge Date/Time: 01/14/24 11:59 Patient Disposition: Home Health Service Discharge Diagnosis: Acute kidney injury Referrals: [facility] Molina [Outside] - 1 Week Kristin Todd MD [Primary Care Provider] - 1 Week Discharge Medications: New warfarin [Jantoven] 3 mg Tablet 6 mg PO DAILY@1800 Qty: 60 0RF Continued zolpidem 10 mg tablet 10 mg PO BEDTIME loratadine 10 mg tablet 10 mg PO DAILY hydroxyzine pamoate 25 mg capsule 25 mg PO TID PRN (Reason: Anxiety) bupropion HCl 200 mg tablet sustained-release 12 hr 200 mg PO BID risperidone microspheres [Risperdal Consta] 50 mg/2 mL suspension,extended rel recon 50 mg IM Q2W Rx Instructions: ON FRIDAYS (Next dose) 01/13/24 ondansetron HCl 4 mg tablet 4 mg PO BID furosemide 40 mg tablet 40 mg PO DAILY midodrine 5 mg tablet 5 mg PO TID Qty: 30 0RF Rx Instructions: do not give last dose of day after 6PM or within 4 hrs of bedtime citalopram 40 mg tablet 40 mg PO DAILY benztropine 0.5 mg tablet 0.5 mg PO BID PRN (Reason: dystonias) nystatin 100,000 unit/gram powder 1 appl topical BID spironolactone 25 mg Tablet 25 mg PO BID@0900,1800 Qty: 120 0RF Protocol: Hold for SBP< HOLD for SBP < : 90 polyethylene glycol 3350 [Miralax] 17 gram/dose powder 17 g PO DAILY PRN (Reason: constipation) Qty: 119 0RF tamsulosin 0.4 mg Capsule 0.4 mg PO DAILY Qty: 90 0RF Discontinued warfarin 1 mg Tablet 7 mg PO SUTUTHSA Rx Instructions: Per INR warfarin 4 mg tablet 8 mg PO MOWEFR Rx Instructions: Per INR Discharge Orders: Discharge Order (Routine); Ordered 01/14/24 Ordered By: Reji Roman Diet: Advance to usual diet Activity on Discharge: As tolerated Stand Alone Forms: Patient Portal Discharge page Print Language: Kyrgyz Care Plan Goals: Resume all medicines as taken prior to the hospital. Health Concerns: Follow up with Urology as scheduled February 02 2024 Plan of Treatment: Your Coumadin has been changed to 6 mg daily. A prescription has been sent to the pharmacy for Coumadin 3 mg; you will take 2 twice daily and follow up with clinic as scheduled. Assessment: See discharge summary Patient Instructions: Acute Kidney Injury (GEN), Ascites (GEN)
--- NOTE | 2024-01-14 12:22 | P.F2F_ITS ---
Service Date Service Date: 01/14/24 Encounter Date of encounter: 01/14/24 Encounter: Acute hospitalization Reasons for Services Signs and symptoms assessed: Assess tolerance Mcallister and urinary output Reason for senior living: teach disease management and GI/ assessment Homebound: Leaving the home is medically contraindicated at this time without the asist of a device and/or another person due th the listed conditions above and below. Reason homebound: unsteady gait / fall risk and unable to drive Certification: Based on the above findings, I certify that this patient is confined to the home and needs intermittent senior living care, physical therapy and/or speech therapy, or continues to need occupational therapy. The patient is under my care, and I have initiated the establishment of the plan of care. The patient will be followed by a physician who will periodically review the plan of care. Time Spent With Patient Time: Total time managing care of this patient today ____ minutes.
--- NOTE | 2024-01-14 12:49 | MHC.CM.PN ---
PT WILL DC HOME TODAY WITH [employer] [facility] [employer] AND [facility] TO TRANSPORT
== END 2024-01-14 16:23 | disposition home health service (06) | DRG 469 ==
LOC: HO.ED 20:30 → HO.EDOVER 23:04 → HO.S3 01-11 09:31
PROVIDERS: Internal Medicine; Nurse Practitioner Family; Physician Assistant Medical; Physician Assistant Surgical; Admitting Provider Internal Medicine; Emergency Provider Emergency Medicine; PCP Pediatrics; Visit Provider Hospitalist
DX: N17.9 Acute kidney failure, unspecified (principal); K76.7 Hepatorenal syndrome; K74.69 Other cirrhosis of liver; R18.8 Other ascites; K75.81 Nonalcoholic steatohepatitis (NASH); I89.0 Lymphedema, not elsewhere classified; E66.01 Morbid (severe) obesity due to excess calories; Z68.41 Body mass index [BMI] 40.0-44.9, adult; N31.9 Neuromuscular dysfunction of bladder, unspecified; K21.9 Gastro-esophageal reflux disease without esophagitis; Z85.41 Personal history of malignant neoplasm of cervix uteri; Z20.822 Contact with and (suspected) exposure to COVID-19; Z86.718 Personal history of other venous thrombosis and embolism; Z79.01 Long term (current) use of anticoagulants; Z79.899 Other long term (current) drug therapy
CPT/HCPCS: 36415; 71046; 74176; 76705; 76770; 80048; 80053; 80076; 81001; 83036; 83690; 83735; 84300; 84484; 84702; 85025; 85610; 86160; 87086; 87635; 93005; 99285; C1758; J1171; J2405; J7120; P9047

== ENCOUNTER → 2024-01-10 15:47 | Outpatient (BNV) | payer MEDICAID, SELFPAY | PROVIDERS: Admitting Provider Internal Medicine; Emergency Provider Emergency Medicine; PCP Pediatrics; Visit Provider Internal Medicine | DX: R10.13 Epigastric pain (principal) | CPT/HCPCS: 93010 ==

== ENCOUNTER → 2024-01-10 22:59 | Outpatient (BNV) | payer MEDICAID, SELFPAY | PROVIDERS: Admitting Provider Internal Medicine; Emergency Provider Emergency Medicine; PCP Pediatrics; Visit Provider Nurse Practitioner Family | DX: N17.9 Acute kidney failure, unspecified (principal); K76.7 Hepatorenal syndrome; R33.9 Retention of urine, unspecified | CPT/HCPCS: 99222 ==

== ENCOUNTER → 2024-01-10 22:59 | Outpatient (BNV) | payer MEDICAID, SELFPAY | PROVIDERS: Admitting Provider Internal Medicine; Emergency Provider Emergency Medicine; PCP Pediatrics; Visit Provider Internal Medicine | DX: N17.9 Acute kidney failure, unspecified (principal); R60.1 Generalized edema | CPT/HCPCS: 99223; 99232; 99233; 99239; G0180 ==

== ENCOUNTER 2024-02-02 14:23 | Outpatient (AMB) | payer MEDICAID, SELFPAY ==
--- NOTE | 2024-02-02 14:33 | A.OFFVIS_ITS ---
Intake Visit Reasons: 3m/PVR Intake Note: Patient presents today to for follow up on: retention, uti, francisco catheter Meds: tamsulosin Allergies to Antibiotic- No Known Allergies Blood Thinner- None Post Void Residual: 0ml's Incident Response Analyst Required: No Accompanied by: Self / Same As Patient Allergies No Known Allergies [No Known Allergies*] Allergy (Verified 02/02/24 15:23) Medication List - Last Reconciled 02/02/24 by KIERAN Diehl- benztropine 0.5 mg PO BID PRN bethanechol chloride 50 mg PO BID 30 days bupropion HCl SR 200 mg PO BID citalopram 40 mg PO DAILY furosemide 40 mg PO DAILY hydroxyzine pamoate 25 mg PO TID PRN loratadine 10 mg PO DAILY midodrine 5 mg PO TID nystatin 1 appl topical BID ondansetron HCl 4 mg PO BID polyethylene glycol 3350 (Miralax) 17 grams PO DAILY PRN risperidone microspheres ER (Risperdal Consta) 50 mg IM Q2W spironolactone 25 mg See Protocol PO BID@0900,1800 sulfamethoxazole-trimethoprim 800-160 mg (Bactrim DS) 1 tab PO BID 10 days warfarin (Jantoven) 6 mg (2 x 3 mg) PO DAILY@1800 zolpidem 10 mg PO BEDTIME HPI Comments Details: Miriam is a 53-year-old Finnish-speaking female patient of was accompanied by her [id number] at today's office visit. She has a past medical history of anasarca, urinary retention, liver cirrhosis secondary to MALDONADO, urinary tract infection, cervical cancer, cardiac arrest, and DVT. She presents to the office today for follow-up of her urinary retention. In discussion with the patient and her [id number] at today's office visit she discusses ongoing issues with urinary retention/incomplete bladder emptying. In review of patient's chart patient was hospitalized on 2 different admissions at which time urology was consulted for urinary retention. Patient reports compliance with Flomax as prescribed. She reports noting over the last 2-3 day she has noted foul-smelling urine. In office voiding trial was performed and patient was able to independently void. We discussed at length potential causes of urinary retention/incomplete bladder emptying as well as further treatment options. In review of patient's chart it appears retroperitoneal ultrasound was ordered and performed. These results were reviewed with the patient today. Bilateral kidneys are normal in size, contour, and echogenicity. No renal calculi, lesions, and or hydronephrosis noted. The bladder was well distended and normal bilateral ureteral jets are demonstrated. A Francisco was present in the bladder. She reports noting over the last 6-8 months she has had issues with emptying her bladder. She otherwise denies flank pain, fever, and or chills. [facility] Medical History Anasarca Urinary retention Hepatorenal syndrome Liver cirrhosis secondary to MALDONADO Obstructive uropathy Hyponatremia Cirrhosis of liver with ascites Acute kidney insufficiency UTI (urinary tract infection) Cervical cancer Lymphedema Cardiac arrest DVT (deep venous thrombosis) Social History Household Members: Family Household Members Other:: Son, daughter Housing: Apartment Do you presently have visiting nurse or other home services: Yes Alcohol intake: never Comment: DAUGHTER STAYING OVERNIGHT Patient Tobacco Use Status: Never used Tobacco e-Cigarette/Vaping Use: Never Used Advance Directives Date on File: 01/03/23 service: No Review of Systems Const All systems reviewed & are unremarkable except as noted in HPI and below Physical Exam Const General: cooperative, comfortable, no acute distress, well developed, alert and awake Nutritional Appearance: overweight Orientation/consciousness: patient oriented x3 Limitations: no limitations HEENT Head: Yes normal to inspection, Yes normocephalic and Yes atraumatic Ears: hearing grossly normal bilaterally Eyes General: appearance normal, both eyes and all related structures Neck Neck: Yes normal visual inspection and Yes trachea midline Chest Chest palpation & inspection: normal inspection of the chest Resp Effort & Inspection: normal respiratory effort and able to speak in complete sentences Cardio Rate: regular rate GI Inspection: Yes normal to inspection General: Yes no CVA tenderness Back/Spine/Pelvis Back: no CVA tenderness Skin General skin exam: no rashes or lesions noted Neuro General: patient oriented x3 Extrem General: Yes normal to inspection Psych Appearance: grossly normal and well kempt Mental Status: mental status grossly normal Speech and movement: Normal speech and movement present and Clear speech present Affect: normal affect Attitude: cooperative Thought process: Normal thought process present Thought content: Normal thought content present Insight: Fair insight present (Psych) Judgement: Fair judgement present (Psych) Office Procedures Post Void Residual Post Residual Void Post Void Residual (PVR): 0 [id number] Void Residual by ultrasound Bladder/Catheter Procedure Details: In office voiding trial performed. Instilled 120 mL of sterile water into the bladder. [place] catheter balloon was deflated using a 10 mL syringe. Francisco catheter was removed using clean technique. Patient tolerated procedure well. Post PVR 0 mL [id number] of Bladder Procedure code (CPT) selection complete Results AMB Urinalysis, Automated UA Leukoctes 125 Wes/uL Last Edit by [employer] on 02/02/24 15:17 UA Nitrite Positive Last Edit by [employer]) on 02/02/24 15:17 UA Urobilinogen 0.2 mg/dL Last Edit by [employer] on 02/02/24 15:17 UA Protein 300 mg/dL Last Edit by [employer] on 02/02/24 15:17 UA pH 7.0 Last Edit by [employer] on 02/02/24 15:17 UA Blood 200 Dano/uL Last Edit by [employer] on 02/02/24 15:17 UA Specific [place] 1.015 Last Edit by [employer] on 02/02/24 15:17 UA Ketone Negative Last Edit by [employer] on 02/02/24 15:17 UA Bilirubin 0 mg/dL Last Edit by [employer] on 02/02/24 15:17 UA Glucose 0 mg/dL Last Edit by [employer] on 02/02/24 15:17 Results Reviewed Results Reviewed: Laboratory Last Values Urine pH (Auto) 7.0 02/02/24 15:13 Specific [place] (Auto) 1.015 02/02/24 15:13 Urine Protein (Auto) 300 mg/dL 11/07/24 15:13 Glucose (UA)(Auto) 0 mg/dL 02/02/24 15:13 Urine Ketones (Auto) Negative 02/02/24 15:13 Urine Blood (Auto) 200 Dano/uL 02/02/24 15:13 Urine Nitrite (Auto) Positive 02/02/24 15:13 Urine Bilirubin (Auto) 0 mg/dL 02/02/24 15:13 Urine Urobilinogen (Auto) 0.2 mg/dL 02/02/24 15:13 Leukocyte Esterase (Auto) 125 Wes/uL 02/02/24 15:13 Date of Service: 01/11/24 EXAMINATION: US RETROPERITONEAL COMPLETE (RENAL) FINDINGS: RIGHT KIDNEY: 9.7 x 4.2 x 5.6 cm (SAG x AP x TRV). The kidney is normal in size, contour, and echogenicity. Renal cortical thickness is normal. No calculi or focal parenchymal lesions. No hydronephrosis. LEFT KIDNEY: 10.7 x 6.0 x 3.4 cm (SAG x AP x TRV). The kidney is normal in size, contour, and echogenicity. Renal cortical thickness is normal. No calculi or focal parenchymal lesions. No hydronephrosis. The left-sided retroperitoneal collection posterior to the left kidney is not identified on this study. BLADDER: Well distended and normal. Bilateral ureteral jets are not demonstrated. Prevoid bladder volume is 972 mL. A Francisco catheter is present in the bladder. ADDITIONAL FINDINGS: Ascites is seen in all 4 quadrants IMPRESSION: 1. Normal-appearing kidneys. No obvious cause such as hydronephrosis is seen to account for deteriorating renal function. 2. Ascites. 3. The left-sided retroperitoneal collection is not identified on this study. Assessment & Plan Assessment & Plan (1) Neurogenic bladder: Code(s): N31.9 - Neuromuscular dysfunction of bladder, unspecified Category: Medical (2) UTI (urinary tract infection) due to urinary indwelling catheter: Code(s): T83.511A - Infection and inflammatory reaction due to indwelling urethral catheter, initial encounter; N39.0 - Urinary tract infection, site not specified Category: Medical Plan In office voiding trial was performed patient was able to independently void. Stop Flomax. Start bethanechol as discussed and prescribed. We discussed further treatment options of urinary retention/incomplete bladder emptying and risks and benefits of these interventions. We discussed potential causes of urinary retention. Start Bactrim as discussed and prescribed. We did discussed potential for near future SPT. Discussed follow-up with nursing in 2 weeks for PVR. Follow-up with provider in 3 months with PVR; or sooner with any issues, concerns, and or questions. Orders: Orders AMB Urinalysis Automated Today Z13.9 - Encounter for screening, unspecified Urine Culture Today N39.0 - Urinary tract infection, site not specified, T83.511A - Infection and inflammatory reaction due to indwelling urethral catheter, initial encounter AMB Post Void Residual by ultrasound Today N31.9 - Neuromuscular dysfunction of bladder, unspecified Medications: New bethanechol chloride 50 mg PO BID 30 days 60 tabs 1RF N39.0 - Urinary tract infection, site not specified sulfamethoxazole-trimethoprim 800-160 mg (Bactrim DS) change in order 1 tab PO BID 5 days 10 tabs 0RF N39.0 - Urinary tract infection, site not specified sulfamethoxazole-trimethoprim 800-160 mg (Bactrim DS) 1 tab PO BID 10 days 20 tabs 0RF N39.0 - Urinary tract infection, site not specified Discontinued tamsulosin (Flomax) Discontinued Reason: Doctor's Order 0.4 mg PO DAILY 90 caps 0RF Patient Instructions: The patient had an opportunity to ask questions regarding the treatment plan. All questions were answered. Physical exam, labs, and imaging were discussed and reviewed in detail. As well as risks, benefits, and discussion of treatment choices. No major barriers to understanding were identified. The patient expressed understanding and agreement with the above treatment plan. The patient was made aware they should contact our office by phone for worsening of their current condition, the appearance of new symptoms, or with any questions or concerns. Compliance is encouraged with any medications and follow up testing that is ordered. It is a privilege to be allowed the opportunity to participate in? your urological care.? Again, if you have any questions or concerns If you have any questions or concerns please do not hesitate to contact me. The office is [phone]. This note is constructed using voice recognition software. While every effort has been made to ensure accuracy municipal bond trader errors may have been included. Yours sincerely, FRANCES Diehl Coding Level of Care Code Est Pt Level 4 (01801) Diagnoses Neurogenic bladder N31.9 UTI (urinary tract infection) due to urinary indwelling catheter T83.511A; N39.0 CPT Codes Post Residual Void - PVR CPT Code: 29131-Trbm Void Residual by ultrasound ([id number]) Bladder/Catheter Procedure - CPT: 18066-Qmjzmkhuoz of Bladder ([id number])
== END 2024-02-02 15:20 | disposition home or self-care (01) ==
LOC: HO.HUSH 14:24
PROVIDERS: PCP Pediatrics; Visit Provider Nurse Practitioner Family
DX: N31.9 Neuromuscular dysfunction of bladder, unspecified (principal); T83.511A Infection and inflammatory reaction due to indwelling urethral catheter, initial encounter; N39.0 Urinary tract infection, site not specified; Z13.9 Encounter for screening, unspecified
CPT/HCPCS: 51700; 99214

== ENCOUNTER 2024-02-02 14:23 | Outpatient (REF) | payer MEDICAID, SELFPAY | END 2024-02-02 14:24 | disposition home or self-care (01) | LOC: HO.LNP 14:23 | PROVIDERS: PCP Pediatrics; Visit Provider Nurse Practitioner Family | DX: T83.511A Infection and inflammatory reaction due to indwelling urethral catheter, initial encounter (principal); N39.0 Urinary tract infection, site not specified; N31.9 Neuromuscular dysfunction of bladder, unspecified; B95.1 Streptococcus, group B, as the cause of diseases classified elsewhere | CPT/HCPCS: 51700; 51798; 81003; 87086; 87147; 99212 ==

== ENCOUNTER → 2024-02-16 13:05 | Outpatient (BNVA) | payer MEDICAID, SELFPAY | PROVIDERS: PCP Pediatrics; Visit Provider Nurse Practitioner Family | DX: N31.9 Neuromuscular dysfunction of bladder, unspecified (principal) | CPT/HCPCS: 51798 ==

== ENCOUNTER 2024-02-27 15:01 | Outpatient (REF) | payer MEDICAID, SELFPAY ==
[2024-02-27 17:43] LABS: MANUAL DIFF FLAG NO
[2024-02-27 17:52] LABS: Basophils Percent Auto 0.7 % (0-2); Eosinophils Percent Auto 0.5 % (0-4); Hematocrit 44.1 % (37.0-47.0); Hemoglobin 14.3 g/dl (12.0-16.0); Imm Gran Abs Auto 0.04 X10*3/uL (0.00-0.03); Lymphocytes Absolute Auto 1.2 X10*3/uL (1.2-4.9); Lymphocytes Percent Auto 28.5 % (20-40); Mean Corpuscular HGB Conc 32.4 g/dl (31.0-35.0); Mean Corpuscular Hemoglobin 27.8 pg (27.0-33.0); Mean Corpuscular Volume 85.6 fL (80.0-98.0); Mean Platelet Volume 10.5 fL (9.4-12.3); Monocytes Absolute Auto 0.3 X10*3/uL (0.1-1.2); Monocytes Percent Auto 6.6 % (2-11); Neutrophils Absolute Auto 2.6 x10*3/uL (2.0-8.3); Neutrophils Percent Auto 62.7 % (45-73); Platelet Count 233 X10*3/uL (160-400); Red Blood Count 5.15 X10*6/uL (4.20-5.50); White Blood Count 4.1 X10*3/uL (4.8-10.8)
[2024-02-27 17:55] LABS: INTERNATIONAL NORM RATIO 1.4 (0.9-1.1); Prothrombin Time 16.2 SEC (10.9-12.4)
[2024-02-27 18:04] LABS: Anion Gap 17 (12-20); Blood Urea Nitrogen 11 mg/dL (9-16); Calcium 9.4 mg/dL (8.4-10.2); Carbon Dioxide 28 mmol/L (22-29); Chloride 98 mmol/L (96-108); Estimated Glomerular Filt Rate > 60; Glucose Random 85 mg/dL (60-115); Potassium 3.7 mmol/L (3.3-5.1); Sodium 139 mmol/L (135-145)
== END 2024-02-27 15:02 | disposition home or self-care (01) ==
LOC: HO.CHCLDS 15:01
PROVIDERS: Visit Provider Nurse Practitioner Family
DX: Z01.818 Encounter for other preprocedural examination (principal); R94.39 Abnormal result of other cardiovascular function study
CPT/HCPCS: 36415; 80048; 85025; 85610

== ENCOUNTER 2024-02-28 21:07 | Emergency (ER) | payer MEDICAID, SELFPAY ==
[2024-02-28 21:11] VITALS: BP 112/64; PULSE 94; RESP 16; TEMP 36.7; O2SAT 96; BMI 41.8
[2024-02-28 21:31] LABS: MANUAL DIFF FLAG NO
[2024-02-28 21:33] LABS: Basophils Percent Auto 0.2 % (0-2); Eosinophils Percent Auto 0.7 % (0-4); Hematocrit 39.5 % (37.0-47.0); Hemoglobin 13.1 g/dl (12.0-16.0); Imm Gran Abs Auto 0.01 X10*3/uL (0.00-0.03); Imm Gran Pct Auto 0.2 % (0.0-0.4); Lymphocytes Percent Auto 21.9 % (20-40); Mean Corpuscular HGB Conc 33.2 g/dl (31.0-35.0); Mean Corpuscular Hemoglobin 27.9 pg (27.0-33.0); Mean Platelet Volume 9.9 fL (9.4-12.3); Monocytes Absolute Auto 0.3 X10*3/uL (0.1-1.2); Monocytes Percent Auto 7.5 % (2-11); Neutrophils Absolute Auto 3.1 x10*3/uL (2.0-8.3); Neutrophils Percent Auto 69.5 % (45-73); Platelet Count 246 X10*3/uL (160-400); Red Cell Distribution Width 14.8 % (11.0-16.0); White Blood Count 4.4 X10*3/uL (4.8-10.8)
[2024-02-28 21:54] LABS: Alanine Aminotransferase 16 U/L (0-31); Alkaline Phosphatase 94 U/L (39-117); Anion Gap 14 (12-20); Aspartate Amino Transferase 21 U/L (5-31); Bilirubin Total 0.6 mg/dL (0.0-1.0); Blood Urea Nitrogen 18 mg/dL (9-16); Calcium 8.6 mg/dL (8.4-10.2); Carbon Dioxide 28 mmol/L (22-29); Chloride 98 mmol/L (96-108); Creatinine Clr Calc Pharmacy 51.1; Estimated Glomerular Filt Rate 36; Glucose Random 87 mg/dL (60-115); Potassium 3.7 mmol/L (3.3-5.1); Sodium 136 mmol/L (135-145); Total Protein 6.9 g/dL (6.5-8.0)
[2024-02-28 21:55] LABS: Appearance Urine Clear; Color Urine Yellow; Glucose Urine UA Negative (Negative); Leukocyte Esterase Urine Small (1+) (Negative); Nitrite Urine Negative (Negative); Specific Gravity - Urine <= 1.005 (1.005-1.025); UMIC TRIGGER UACC YES; Urine Blood Negative (Negative); Urine Ketones Negative (Negative); Urine Protein Negative (Neg-Trace)
[2024-02-28 22:05] LABS: Bacteria Urine None Seen (None Seen); Hyaline Casts Urine 0-2 /LPF (0-2); RBC Urine 0-2 /HPF (0-2); Squamous Epithelial Cell Urine 0-2 /HPF (0-2); UACC Culture Trigger YES; WBC Urine 0-5 /HPF (0-5)
[2024-02-28 22:36] LABS: Lipase 20 U/L (8-78)
[2024-02-28 23:12] VITALS: BP 98/55; PULSE 82; RESP 18; TEMP 36.8; O2SAT 99
--- NOTE | 2024-02-28 23:26 | ED_ITS ---
HPI - General Adult General Chief complaint: Abdominal Pain Stated complaint: ?UTI/Abdominal pain Time Seen by Provider: 02/28/24 23:25 Source: patient Mode of arrival: ambulatory Limitations: no limitations History of Present Illness ED Provider: HPI narrative: Patient with with history of MALDONADO complicated by ascites, cervical cancer status post pelvic radiation, history of lower extremity DVT on Coumadin type 2 diabetes and schizophrenia comes here for diffuse abdominal pain and dysuria since yesterday patient does have neurogenic bladder and has a Mcallister catheter in place for last 3 months which was removed yesterday had DAVID in the past because of obstructive uropathy which improved after Mcallister catheter since the catheter was removed yesterday lower abdominal discomfort continues Related Data Home Medications ?Medication ?Instructions ?Recorded ?Confirmed bupropion HCl 200 mg tablet,12 hr 200 mg PO BID depressive disorder 01/03/23 02/02/24 sustained-release hydroxyzine pamoate 25 mg capsule 25 mg PO TID PRN Anxiety 01/03/23 02/02/24 loratadine 10 mg tablet 10 mg PO DAILY 01/03/23 02/02/24 ondansetron HCl 4 mg tablet 4 mg PO BID Nausea And Vomiting 01/03/23 02/02/24 risperidone microspheres 50 mg/2 50 mg IM Q2W 01/03/23 02/02/24 mL intramuscular susp,ext release (Risperdal Consta) zolpidem 10 mg tablet 10 mg PO BEDTIME Insomnia 01/03/23 02/02/24 benztropine 0.5 mg tablet 0.5 mg PO BID PRN dystonias 07/13/23 02/02/24 nystatin 100,000 unit/gram topical 1 appl topical BID 07/13/23 02/02/24 powder furosemide 40 mg tablet 40 mg PO DAILY 08/05/23 02/02/24 citalopram 40 mg tablet 40 mg PO DAILY depressive disorder 01/11/24 02/02/24 Previous Rx's ?Medication ?Instructions ?Recorded polyethylene glycol 3350 17 17 g PO DAILY PRN constipation 07/16/23 gram/dose oral powder (Miralax) #119 grams spironolactone 25 mg tablet 25 mg PO BID@0900,1800 #120 tabs 07/16/23 midodrine 5 mg tablet 5 mg PO TID #30 tabs 08/10/23 warfarin 3 mg tablet (Jantoven) 6 mg (2 x 3 mg) PO DAILY@1800 #60 01/14/24 tabs bethanechol chloride 50 mg tablet 50 mg PO BID 30 days #60 tabs 02/02/24 sulfamethoxazole 800 1 tab PO BID 5 days #10 tabs 02/02/24 mg-trimethoprim 160 mg tablet (Bactrim DS) Allergies Allergy/AdvReac Type Severity Reaction Status Date / Time No Known Allergies Allergy Verified 02/28/24 21:13 [No Known Allergies*] Review of Systems 2 Review of Systems: Yes all other systems are reviewed and are negative [facility] Past Medical History Medical History Anasarca Urinary retention Hepatorenal syndrome Liver cirrhosis secondary to MALDONADO Obstructive uropathy Hyponatremia Cirrhosis of liver with ascites Acute kidney insufficiency UTI (urinary tract infection) Cervical cancer Lymphedema Cardiac arrest DVT (deep venous thrombosis) Social History Social History Household Members: Family Household Members Other:: Son, daughter Housing: Apartment Do you presently have visiting nurse or other home services: Yes Alcohol intake: never Comment: DAUGHTER STAYING OVERNIGHT Patient Tobacco Use Status: Never used Tobacco Smoked in Last 30 Days: No e-Cigarette/Vaping Use: Never Used Use of substances other than those prescribed or required for medical reasons: No Advance Directives: Yes Advance Directives on File: Yes Advance Directives Date on File: 01/03/23 Do you have a plan to hurt others: No Plan service: No Physical Exam ED Vital Signs: Vital Signs - 24 hr 02/28/24 21:11 02/28/24 23:12 02/28/24 23:34 Temperature 98.1 F 98.2 F Pulse Rate 94 82 Respiratory Rate 16 18 Blood Pressure 112/64 98/55 L 106/58 L Pulse Oximetry 96 99 Oxygen Delivery Method Room Air Room Air 02/28/24 23:54 02/29/24 01:55 Temperature 98.3 F Pulse Rate 89 89 Respiratory Rate 16 16 Blood Pressure 113/71 113/71 Pulse Oximetry 97 97 Oxygen Delivery Method Room Air Room Air BMI result Body Mass Index 41.8 Appearance: Alert. Oriented X3. No acute distress. Obese Eyes: PERRLA, No Nystagmus ENT: Pharynx normal. Oral Mucosa moist Neck: Normal inspection. Neck supple. CVS: Normal heart rate and rhythm. Pulses normal. Respiratory: No respiratory distress. Equal air entry bilateral, no wheezing/rales/rhonchi Abdomen: Soft and nontender. Bowel sounds are present, no mass palpable, no CVA tenderness Skin: Skin warm and dry. Normal skin color. Normal skin turgor. Extremities: Nonpitting lymphedema No calf tenderness Neuro: Oriented X 3. No motor deficit. No sensory deficit.No cerebellar signs , cranial nerves II-XII intact Medical Decision Making Medical Decision Making [facility] Narrative: Patient with neurogenic bladder with urinary retention post viral volume was 137 creatinine has increased from 0.85 yesterday to now 1.5 with history of similar elevation creatinine when she had a bladder outlet obstruction in 01/10/2024 Mcallister catheter was placed patient was given p.o. fluids advised to follow up as outpatient Lab Data [facility] Lab Attestation statement: I reviewed the patient's lab results. 02/28/24 21:27 02/28/24 21:27 Labs: Lab Results 02/28/24 02/28/24 Range/Units 21:27 21:43 WBC 4.4 L (4.8-10.8) X10*3/uL RBC 4.70 (4.20-5.50) X10*6/uL Hgb 13.1 (12.0-16.0) g/dl Hct 39.5 (37.0-47.0) % MCV 84.0 (80.0-98.0) fL MCH 27.9 (27.0-33.0) pg MCHC 33.2 (31.0-35.0) g/dl RDW 14.8 (11.0-16.0) % Plt Count 246 (160-400) X10*3/uL MPV 9.9 (9.4-12.3) fL Immature Gran % (Auto) 0.2 (0.0-0.4) % Neut % (Auto) 69.5 (45-73) % Lymph % (Auto) 21.9 (20-40) % [place] % (Auto) 7.5 (2-11) % Eos % (Auto) 0.7 (0-4) % Baso % (Auto) 0.2 (0-2) % Lymph # (Auto) 1.0 L (1.2-4.9) X10*3/uL [place] # (Auto) 0.3 (0.1-1.2) X10*3/uL Eos # (Auto) 0.0 (0.0-0.4) X10*3/uL Baso # (Auto) 0.0 (0.0-0.2) X10*3/uL Abs Immat Gran (auto) 0.01 (0.00-0.03) X10*3/uL Absolute Neuts (auto) 3.1 (2.0-8.3) x10*3/uL Absolute Nucleated RBC 0.000 (0.0-0.012) X10*3/uL Nucleated RBC % (auto) 0.0 (0.0-0.2) /100WBC Sodium 136 (135-145) mmol/L Potassium 3.7 (3.3-5.1) mmol/L Chloride 98 (96-108) mmol/L Carbon Dioxide 28 (22-29) mmol/L Anion Gap 14 (12-20) BUN 18 H (9-16) mg/dL Creatinine 1.51 H (0.5-1.4) mg/dL Estim Creat Clear Calc 51.1 Estimated GFR 36 Random Glucose 87 (60-115) mg/dL Calcium 8.6 D (8.4-10.2) mg/dL Total Bilirubin 0.6 (0.0-1.0) mg/dL AST 21 (5-31) U/L ALT 16 (0-31) U/L Alkaline Phosphatase 94 (39-117) U/L Total Protein 6.9 (6.5-8.0) g/dL Albumin 4.0 (3.5-5.0) g/dL Lipase 20 (8-78) U/L Urine Color Yellow Urine Appearance Clear Urine pH 6.0 (5.0-9.0) Ur Specific [place] <= 1.005 (1.005-1.025) Urine Protein Negative (Neg-Trace) mg/dL Urine Glucose (UA) Negative (Negative) mg/dL Urine Ketones Negative (Negative) mg/dL Urine Blood Negative (Negative) Urine Nitrite Negative (Negative) Ur Leukocyte Esterase Small (1+) H (Negative) Urine RBC 0-2 (0-2) /HPF Urine WBC 0-5 (0-5) /HPF Ur Squamous Epith Cells 0-2 (0-2) /HPF Urine Bacteria None Seen (None Seen) Hyaline Casts 0-2 (0-2) /LPF Discharge Plan Discharge Clinical Impression: Neurogenic bladder, Acute on chronic urinary retention Patient Disposition: Home, Self-Care Instructions: Mcallister Catheter Placement and Care (ED), Chronic Urinary Retention in Women (ED) Additional Instructions: Drink plenty of fluids Mcallister catheter care as advised Follow up with your urologist Prescriptions: No Action zolpidem 10 mg tablet 10 mg PO BEDTIME loratadine 10 mg tablet 10 mg PO DAILY hydroxyzine pamoate 25 mg capsule 25 mg PO TID PRN (Reason: Anxiety) bupropion HCl 200 mg tablet sustained-release 12 hr 200 mg PO BID risperidone microspheres [Risperdal Consta] 50 mg/2 mL suspension,extended rel recon 50 mg IM Q2W Rx Instructions: ON FRIDAYS (Next dose) 01/13/24 ondansetron HCl 4 mg tablet 4 mg PO BID furosemide 40 mg tablet 40 mg PO DAILY midodrine 5 mg tablet 5 mg PO TID Qty: 30 0RF Rx Instructions: do not give last dose of day after 6PM or within 4 hrs of bedtime citalopram 40 mg tablet 40 mg PO DAILY warfarin [Jantoven] 3 mg Tablet 6 mg PO DAILY@1800 Qty: 60 0RF benztropine 0.5 mg tablet 0.5 mg PO BID PRN (Reason: dystonias) nystatin 100,000 unit/gram powder 1 appl topical BID spironolactone 25 mg Tablet 25 mg PO BID@0900,1800 Qty: 120 0RF Protocol: Hold for SBP< HOLD for SBP < : 90 polyethylene glycol 3350 [Miralax] 17 gram/dose powder 17 g PO DAILY PRN (Reason: constipation) Qty: 119 0RF bethanechol chloride 50 mg tablet 50 mg PO BID 30 Days Qty: 60 1RF sulfamethoxazole-trimethoprim [Bactrim DS] 800-160 mg tablet 1 tab PO BID 5 Days Qty: 10 0RF Rx Instructions: change in order Interventions: ED Discharge Assessment Last Done: 02/29/24 01:55 Discharge Date/Time: 02/29/24 01:55 Print Language: Bruneian
[2024-02-28 23:34] VITALS: BP 106/58
--- NOTE | 2024-02-28 23:35 | PC.NURSE ---
Addendum entered by Jasmin Fabian 02/28/24 23:56: pt reports urinary retention, had small uo earlier. bladder scan shows approx 450mL urine. MD aware. Original Note: MD salter made aware of pt hx of cirrhosis with abd distention and needed drainage. pt also has +3 non pitting edema of ble. md aware of bp. afebrile. axox4 speaking full clear sentences denies cp/sob. reports abd pain slightly improved at this time since arrival currently at 08/04. awaiting primary eval by ed provider.
[2024-02-28 23:54] VITALS: BP 113/71; PULSE 89; RESP 16; O2SAT 97
[2024-02-29 01:55] VITALS: BP 113/71; PULSE 89; RESP 16; TEMP 36.8; O2SAT 97
--- OUTSIDE RECORDS SUMMARY | 2024-03-06 16:01 | XMS_ITS | Continuity of Care Document ---
Author Organization [facility] ter Address [address] [place] [id number] Care Team Providers Care Feeder Driver Name Role Phone Peyton JORDAN, Kristin Abernathy Primary Care Physician Encounter [facility] ACCT R [id number] Date(s): 03/01/24 - 03/01/[address] [address] Discharge Disposition: A-D/C Home Attending Physician: Ya JORDAN, Frida Gold Admitting Physician: Frida Pandya MD Referring Physician: Luis Nino NP, V Encounter Type: Disch Daystay Allergies, Adverse Reactions, Alerts No Known Allergies Immunizations Given and Recorded Vaccine Date Status Refusal Reason influenza virus vaccine, inactivated 01/22/21 Javier rded influenza virus vaccine, inactivated 04/28/20 Give n influenza virus vaccine, inactivated 12/21/18 Javier rded influenza virus vaccine, inactivated 01/19/18 Javier rded influenza virus vaccine, inactivated 01/27/17 Javier rded influenza virus vaccine, inactivated 12/23/15 Javier rded influenza virus vaccine, inactivated 01/15/15 Javier rded influenza virus vaccine, inactivated 12/04/13 Javier rded tetanus-diphtheria toxoids (Td) 01/27/17 Recorded pneumococcal 23-valent vaccine 03/18/15 Given Medications Ambien 10 mg oral tablet 1 tablet = 10 mg, By Mouth, Daily at bedtime, PRN as needed for insomnia, 0 Refills, Maintenance, 08/11/18 12:55:26 PM EDT, Tablet Start Date: 08/11/18 Stop Date: 03/28/20 Status: Ordered Repeat number: 1 benztropine 0.5 mg oral tablet 0.5 mg, 1, tablet, By Mouth, 2 times a day, PRN, Refills 0, Maintenance, Other, 05/29/21 6:48:00 AM EST, ; Start Date: 05/29/21 Status: Ordered Repeat number: 1 buPROPion 200 mg/12 hours (SR) oral tablet, extended release 1 tablet = 200 mg, By Mouth, 2 times a day, Maintenance, 03/23/20 9:06:00 AM EST, ER Tablet, ; Start Date: 03/23/20 Status: Ordered Repeat number: 1 Celexa 40 mg oral tablet 1 tablet = 40 mg, By Mouth, Daily, 0 Refills, Maintenance, 09/13/14 5:54:30 AM EDT, Tablet Start Date: 09/13/14 Status: Ordered Repeat number: 1 furosemide 40 mg oral tablet 40 mg, 1, tablet, By Mouth, Daily, Maintenance, 05/29/21 4:19:00 PM EST, ; Start Date: 05/29/21 Status: Ordered Repeat number: 1 hydrOXYzine pamoate 25 mg oral capsule 1 capsule = 25 mg, By Mouth, 3 times a day, PRN as needed for anxiety, 0 Refills, Maintenance, 05/29/21 6:48:00 AM EST, ; Start Date: 05/29/21 Status: Ordered Repeat number: 1 loratadine 10 mg oral tablet 10 mg, 1, tablet, By Mouth, Daily, Maintenance, 05/29/21 4:23:00 PM EST, ; Start Date: 05/29/21 Status: Ordered Repeat number: 1 midodrine 5 mg oral tablet 5 mg, 1, tablet, By Mouth, 3 times a day, # 42 tablet, Refills 0, Tot. Refills 0, Maintenance, 04/03/20 1:10:00 PM EST, Route to Pharmacy Electronically, [facility], Partial fill upon patient request if the prescription is for a schedule II opioid drug., 157, cm, 04/03/20 11:17:00 EST, Height, 113.9, kg, 03/23/20 18:19:00 EST, Dry Weight Start Date: 04/03/20 Status: Ordered Quantity: 42.0 Unit: tablet Repeat number: 1 midodrine 5 mg oral tablet 5 mg, Tablet, By Mouth, Once, Routine, 03/01/24 3:39:00 PM EST, Stop date 03/01/24 3:51:32 PM EST Start Date: 03/01/24 Stop Date: 03/01/24 Status: Completed Repeat number: 1 Risperdal Consta 50 mg intramuscular injection = 50 mg, Intramuscular, Every 14 days Start Date: 03/23/20 Status: Ordered Repeat number: 1 spironolactone 25 mg oral tablet 25 mg, 1, tablet, By Mouth, Daily, # 30 tablet, Refills 0, Maintenance, 10/03/23 10:31:00 AM EDT, Partial fill upon patient request if the prescription is for a schedule II opioid drug. Start Date: 10/03/23 Status: Ordered Quantity: 30.0 Unit: tablet Repeat number: 1 warfarin 1 mg oral tablet 1 tablet = 1 mg, By Mouth, Daily, Take 6mg coumadin along with 1.5mg for total of 7.5mg daily, INR check on 04/07/21 by [facility]NA and further dose adjustments by PCP, # 60 tablet, 1 Refills, Maintenance, 04/04/22 2:52:00 PM EST, Tablet, [id number], Please cancel previous 1mg table for 30 tabs. USe this new 1mg coumadin prescription of 60 tablets; Partial fill upon patient request if the prescriptio n is for a schedule II opioid drug., 160, cm, 04/04/22 14:36:00 EST, Height, 112, kg, 04/03/22 8:51:00 EST, Dry Weight Start Date: 04/04/22 Status: Ordered Quantity: 60.0 Unit: tablet Repeat number: 2 Problem List Condition Confirmation Course Effective Dates Status H ealth Status Informant Loss of memory Confirmed Active Atypical ductal hyperplasia, ADH, of Right breast, 2019 Confirmed Active Hematuria Confirmed Active Liver cirrhosis secondary to MALDONADO Confirmed Active Vulvar dysplasia Confirmed Active GERD with stricture Confirmed Active History of deep vein thrombosis (DVT) cephalic Confirmed Active Hx of cervical cancer, Stage IIIB, T2 N1 Mx, 2015 1 Confirmed Active Lymphedema Confirmed Active Uses French as primary spoken language Confirmed Active Vulvar mass Confirmed Active 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 Pt did not keep sched appt. She rescheduled and did not keep the 2nd appt. Letter sent to thereferring source. Vital Signs Most recent to oldest [Reference Range]: 1 2 3 Height 160.02 cm (03/01/24 11:05 AM) Weight 104.4 kg (03/01/24 11:05 AM) Oxygen Saturation [94-100 %] 100 % (03/01/24 4:15 PM) 99 % (03/01/24 4:14 PM) 99 % (03/01/24 3:44 PM) Pulse Rate [55-90 bpm] 74 bpm (03/01/24 3:50 PM) 84 bpm (03/01/24 11:05 AM) Body Mass Index [18.5-24.99 kg/m2] 40.77 kg/m2 *>HHI* (03/01/24 11:05 AM) Blood Pressure [90-138/55-84 mm Hg] 117/75mm Hg (03/01/24 4:23 PM) 92/59mm Hg (03/01/24 4:00 PM) 92/53mm Hg (03/01/24 3:50 PM) Respiratory Rate [16-30 br/min] 25 br/min (03/01/24 4:15 PM) 22 br/min (03/01/24 4:14 PM) 16 br/min (03/01/24 3:44 PM) Temperature [96.8-100.4 DegF] 97.9 DegF (03/01/24 11:05 AM) Mode of Delivery (Oxygen) Room air (03/01/24 4:15 PM) Room air (03/01/24 4:00 PM) Room air (03/01/24 3:30 PM) Blood pressure sites Arm, right (03/01/24 11:05 AM) Temperature Route Oral (03/01/24 11:05 AM) Social History Social History Type Response Smoking Status Former smoker; Other : during teenage years; entered on: 01/09/15 Sex Sex Representation Female (finding) Implantable Device List Procedure Provider Procedure Date Device Type Site Repair Hernia Ventral Laparoscopic Rigo Real MD 10/27/17 Unknown Abdomen Device Identifier Serial Number Lot or Batch Number Manufacturing Date Expiration Date Distinct Identification Code MRI Safety Implantable Status Assigning Authority [id number] Unknown [id number] Unknown 08/23/19 Unknown Unknown Active GS1 Procedure Provider Procedure Date Device Type Site Repair Hernia Ventral Laparoscopic Rigo Real MD 10/27/17 Unknown Abdomen Device Identifier Serial Number Lot or Batch Number Manufacturing Date Expiration Date Distinct Identification Code MRI Safety Implantable Status Assigning Authority [id number] Unknown [id number] Unknown 07/24/19 Unknown Unknown Active GS1 Procedure Provider Procedure Date Device Type Site Repair Hernia Ventral Laparoscopic Addie JORDAN, Rigo 10/27/17 Unknown Abdomen Device Identifier Serial Number Lot or Batch Number Manufacturing Date Expiration Date Distinct Identification Code MRI Safety Implantable Status Assigning Authority [id number] Unknown [id number] Unknown 08/23/19 Unknown Unknown Active GS1 Note * Event Display: Hemodynamic Procedure Report Authored Date: * Radha Son: PERFORM, SIGN, VERIFY Event Display: Cardiac Rehab Note Authored Date: Patient: IZABEL ROBIN Age: 53 years Sex: Female : 1970 Associated Diagnoses: None Author: Radha Son Patient chart reviewed. Patient with normal coronaries, atypical chest pain. Patient is not appropriate for Phase 1 Cardiac Rehab and does not qualify for Ph 2 cardiac rehab. Will sign off at this time. Thank you [id number] * Yael Ibarra RN: PERFORM Event Display: Discharge/Transfer Note Hospital Authored Date: Nursing Discharge Note Entered On: 03/01/2024 17:12 EST Performed On: 03/01/2024 17:11 EST by Yael Ibarra RN Nursing Discharge Note 2 Discharge Time : 03/01/2024 17:00 EST Discharge Level of Care at Discharge : Home/Usp/Foster Care Patient Left Unit Via : Wheelchair Patient Accompanied Off Unit with : Responsible adult DC Instructions Provided & Signed by Pt : Yes Patient Understands D/C Instructions : Yes Patient Instructions Discharge Signed : Yes Did Pt have Specialty Bed or Wound Vac : No Yael Ibarra RN - 03/01/2024 17:11 EST * Yael Ibarra RN: PERFORM Event Display: Patient Education/Instruction Authored Date: [id number] Inpatient Adult Discharge Instructions. [address] [address] Name: IZABEL ROBIN : 1970?? Visit: 03/01/2024 09:41?? Current Date: 03/01/2024 14:27 ?? Account: [id number]?? Inpatient Adult Discharge Instructions We would like to thank you for allowing us to assist you with your healthcare needs. The following includes patient education materials and information regarding your injury/illness. Our entire staffstrives to provide an excellent experience for our patients and their families. PLEASE ENSURE YOU FOLLOW-UP PER THE INSTRUCTIONS BELOW! ?? YOUR OPINION IS IMPORTANT TO US! Please complete the survey you may receive by mail or email. Your feedback will be used to make improvements to the healthcare experiences of our patients and their families. Surveys are administered by [employer] ?? If further treatment with your primary care physician or another doctor is recommended, it is important for you to keep the appointment. Call your primary care physician or return to the Emergency Department immediately if your condition worsens, fails to improve, or new symptoms develop. If you need to find a doctor, you can call [facility] [employer] Link for a referral at [phone] or toll free at [phone] ([phone]) or log in to [email or web address].. ?? [facility], in keeping with [facility] guidance, no longer requires face masks for staff, patientsor visitors in most situations. Similiar to time spent indoors at other locations, there is the chance that you were exposed to repiratory viruses during your time with us (such as flu or COVID-19). If you develop symptoms concerning for a viral respiratory infection, please seek testing (and treatment if indicated) from your medical provider or home test kit. ?? You can view and manage your care through the patient portal or by using a health care yesica of your choosing. [employer] is a website that allows you to securely view your medical information including your hospital discharge summary, office visit summaries, medications and follow-up visits. You can also request appointments, renew medications, and request access to your medical information using a health care yesica of your choosing, or just ask a question. You can enroll at [email or web address] or register during your next office visit. You have been discharged from [facility], Patient Care Unit: CARE??. If you have any questions regarding these instructions, including results of studies pending, afteryou leave, please call us and we will be happy to assist you 18/10. [facility] Nursing Unit Direct Phone Number, for 18/10 contact and results of studies pending CARE [address] [place] [address] Your Care Team Attending Physician Frida Pandya MD?? Consulting Providers Frida Pandya MD?? Discharging Providers Frida Pandya MD Tests Performed Below is a partial list of the tests performed during your hospitalization. You may have had other tests and procedures not included in this list. Please discuss all test results with your provider. Basic Metabolic Panel?? CBC?? INR?? PTT?? Type and Screen?? Primary Care Provider Peyton JORDAN , Kristin Abernathy? Advance Directive Health Care Proxy on File Yes - Health Care Proxy Discharge Vitals Temperature: 97.9 DegF Height: 160.02 cm Pulse Rate: 84 bpm Weight: 104.4 kg Respiratory Rate: 24 br/min Body Mass Index:??40.77 kg/m2??Critical Systolic Blood Pressure: 99 mm Hg Body surface area: 2.15 Diastolic Blood Pressure: 57 mm Hg ?? Oxygen Saturation: 99 % ?? Studies Pending All studies ordered during this hospital stay have been completed unless listed below. Please discuss all pending results with your provider listed above in these instructions. ?? Basic Metabolic Panel?? CBC?? INR?? PTT?? Type and Screen?? What to do next Instructions From Your Doctor ?? Orders? 03/01/24 14:20:00 EST?? You Need to Schedule the Following Appointments Follow Up with??Michael Angel DO When:??Within 4 to 5 weeks Discharge Medications IZABEL ROBIN :1970 Visit Date:03/01/2024 Medications: Please continue your medications until treatment is completed or stopped by your provider. Medications not listed below should be discontinued. Discuss any questions related to medications with your provider. What How Much When Instructions Next Dose Unchanged Benztropine (benztropine 0.5 mg oral tablet) 1 tab(s) Oral Twice a day as needed for Other resume as needed Unchanged BuPROpion (buPROPion 200 mg/ 12 hours (SR) oral tablet, extended release) 1 tab(s) Oral Twice a day tonight Unchanged Citalopram (Celexa 40 mg oral tablet) 1 tab(s) Oral Daily resume Unchanged Furosemide (furosemide 40 mg oral tablet) 1 tab(s) Oral Daily tomorrow am Unchanged HydrOXYzine (hydrOXYzine pamoate 25 mg oral capsule) 1 capsule Oral 3 times a day as needed for as needed for anxiety as needed Unchanged Loratadine (loratadine 10 mg oral tablet) 1 tab(s) Oral Daily resume Unchanged Midodrine (midodrine 5 mg oral tablet) 1 tab(s) Oral 3 times a day resume Unchanged Risperidone (Risperdal Consta 50 mg intramuscular injection) 50 Milligram Intramuscular Every 14 days resume as previously prescribed Unchanged Spironolactone (spironolactone 25 mg oral tablet) 1 tab(s) Oral Daily tomorrow am Unchanged Warfarin (warfarin 1 mg oral tablet) 1 tab(s) Oral Daily Take 6mg coumadin ??along with 1.5mg for ??total of 7.5mg daily, INR check on by VNA and further dose adjustments by PCP ?? resume your usual dose tonight Unchanged Zolpidem (Ambien 10 mg oral tablet) 1 tab(s) Oral Daily at Bedtime as needed for as needed for insomnia as needed Prescription Given During Visit No new medications prescribed at time of discharge.?? Laboratory Results Below is a partial list of the most recent Laboratory test results done prior to this discharge. You may have had other tests and procedures not included in this list. Please discuss all test resultswith your provider. Allergies (NKA means No Known Allergies) NKA Problems Active Problems??(15) Atypical ductal hyperplasia, ADH, of Right breast, 2019?? GERD with stricture?? Hematuria?? History of deep vein thrombosis (DVT) cephalic?? Hx of cervical cancer, Stage IIIB, T2 N1 Mx, 2015?? Liver cirrhosis secondary to MALDONADO?? Loss of memory?? Lymphedema?? Obstructive uropathy?? Positive PPD?? Schizophrenia?? Severe obesity?? Uses French as primary spoken language?? Vulvar dysplasia?? Vulvar mass?? Education Materials Below is the list of Educational Leaflet Providered with your Discharge Instructions. Web[employer] Ignite Patient Education - Procedural Sedation?? [employer] Patient Education - Surgery Radial Cath Approach Discharge Instructions?? Valuables and Belongings I fully understand and agree that [facility] accepts no responsibility for all my personal property including clothing, toilet articles, radios, jewelry, dentures, hearing aids, rings, money, or any other property that is in my possession or is brought to me after admission. I understand certain valuables may be placed in a hospital safe for a short period of time. I understand that the hospital is not liable for loss or damage due to accident, fire, or other natural occurrence while said property is in the safe. I accept full responsibility for any personal property that I keep with me, and will not hold the hospital responsible in case of loss or disappearance. I acknowledge that i have been encouraged to send valuables and belongings home. ?? Date for Pt to Sign Valuables/Belongings: 03/01/24 11:05:00 ?? Valuables & Belongings ?? Clothes Electronic devices Jewelry Monetary Items Personal devices Miscellaneous Medications (Valuables) Valuables at Bedside Jacket, Pants, Shirt, Shoes, Undergarments ? Valuables Sent Home ? Valuables Sent to Security ? Valuables Sent to Locker ? Other Discharge Information ? Pulmonary Rehab Status?? Pulmonary Rehab Discharge Status?? Respiratory Rate: 24 br/min ? Common Emergency Awareness Tips IS IT A STROKE? Act FAST and Check for these signs: FACE Does the face look uneven? ARM Does one arm drift down? SPEECH Does their speech sound strange? TIME Call at any sign of stroke ?? Heart Attack Signs Chest discomfort: Most heart attacks involve discomfort in the center of the chest and lasts more than a few minutes, or goes away and comes back. It can feel like uncomfortable pressure, squeezing, fullness or pain. Discomfort in upper body: Symptoms can include pain or discomfort in one or both arms, back, neck, jaw or stomach. Shortness of breath: With or without discomfort. Other signs: Breaking out in a cold sweat, nausea, or lightheaded. Remember, MINUTES DO MATTER. If you experience any of these heart attack warning signs, call to get immediate medical attention! ?? Smoking can increase your chances of developing chronic health problems and can cause harmful effects to other family members in your house. If you smoke, you are strongly encouraged to quit. Please call [facility] [employer] Link at [phone] or [phone] Upon A Hero ([phone]) or log in to [email or web address] for referrals to smoking cessation programs. ?? 854 Suicide & Crisis Lifeline is available 18/10 if you or someone you know needs to find a reason to keep living. By calling 325 you'll be connected to a skilled, trained counselor at a crisis center in your area. INPATIENT DISCHARGE INSTRUCTIONS SIGNATURE PAGE IZABEL ROBIN Location:[facility] Registration Date and Time:03/01/2024 09:41 EST Primary Care Physician: Kristin Todd MD, Attending Physician: Ya JORDAN, Frida Gold, I IZABEL ROBIN, have received the above patient education materials/instructions and have verbalized understanding. If ambulance or transport services are being used I further acknowledge beinggiven a choice of service. ?? If you need to contact me, please call me at this number: . Patient/Carton Filler Name: Patient/Carton Filler Signature: Relationship to Patient: Witness Name/Signature: Date: * Yael Ibarra RN: PERFORM Event Display: Patient Education Leaflets Authored Date: [id number] Procedural Sedation ?? [id number] Sedaci??n para un procedimiento La sedaci??n para un procedimiento es la administraci??n de medicamentos para aliviar las molestias, el dolor y la ansiedad earlene el procedimiento. Estos medicamentos suelen administrarse mediante jesus v??a intravenosa en pancho de los brazos o en jesus de las reny. En algunos casos, pueden administrarse por la boca o por inhalaci??n. Mientras est?? bajo los efectos de la sedaci??n, es probable que est?? despierto. Kendrick es posible que no lo recuerde despu??s. ??Por qu?? se usa la sedaci??n para un procedimiento? La sedaci??n se usa en muchos tipos de procedimientos. El objetivo es reducir el dolor, la ansiedady los recuerdos estresantes de un procedimiento. Puede ayudar al proveedor de atenci??n m??dica quelo est?? tratando. Por ejemplo, puede ser m??s f??cil repararle un hueso roto si usted se siente relajado. Sylvia tipo de sedaci??n se usa solo para procedimientos breves y b??sicos. No se usa para cirug??as complejas. Algunos procedimientos que usan sylvia tipo de sedaci??n son, por ejemplo: ??? Cirug??a dental ??? Biopsia de mamas, para wallace jesus muestra del tejido de la mama ??? Endoscopia, para estudiarproblemas gastrointestinales ??? Broncoscopia, para comprobar si hay problemas en los pulmones ??? Realineaci??n de huesos o de las articulaciones, para corregir un hueso roto o jesus articulaci??n dislocada ??? Cirug??a catherine de un pie o de la piel ??? Cardioversi??n el??ctrica, para restablecer el ritmo card??aco normal ??? Punci??n lumbar, para detectar enfermedades neurol??gicas ?? Riesgos de la sedaci??n para un procedimiento Los riesgos y los posibles efectos secundarios son los siguientes, entre otros: ??? Dolor de teresa ??? N??useas y v??mitos ??? Malos recuerdos del procedimiento ??? Respiraci??n lenta ??? Cambios en la frecuencia card??patricia y en la presi??n arterial (poco frecuente) ??? Inhalaci??n del contenido del est??va en colette pulmones (en raros casos) Los efectos secundarios probablemente desaparecer??n poco despu??s del procedimiento. El equipo de atenci??n m??dica observar?? la frecuencia card??patricia y la respiraci??n earlene la sedaci??n y despu??s. Es para prevenir problemas. Usted puede tener otros riesgos. Dependen de la edad y del estado general de rebekah. Tambi??n dependen del tipo de sedaci??n que le administran. Consulte al proveedor de atenci??n m??dica cu??les son los riesgos m??s probables en bragg catracho. ?? C??mo prepararse para la sedaci??n en un procedimiento Hable con el proveedor sobre c??mo prepararse para el procedimiento. Informe al proveedor sobre todos los medicamentos que kayla. Inger incluye los medicamentos de venta marisol, nelly el ibuprofeno. Tambi??n incluyen las vitaminas, las hierbas medicinales y otros suplementos. Es posible que deba dejar de wallace algunos medicamentos antes del procedimiento, nelly anticoagulantes y aspirina. Si fuma, deber??a dejar de hacerlo. Es para reducir las probabilidades de tener un problema en los pulmones. Hable con el proveedor si necesita ayuda para dejar de fumar. Inf??rmele al proveedor de atenci??n m??dica si usted: ??? Tuvo alg??n problema en el pasado con la sedaci??n o con la anestesia ??? Tuvo cambios recientes en la rebekah, nelly jesus infecci??n o fiebre ??? Est?? embarazada o mike que puede estarlo Adem??s: ??? Siga las instrucciones sobre lo que puede comer y beber antes del procedimiento. ??? P??alyssa a un adulto de confianza que lo lleve a bragg casa despu??s del procedimiento. El d??a que recibe sedaci??n, no puede conducir. ??? P??alyssa a un adulto de confianza que se quede con usted earlene unas horas mientras se recupera. ??? No tome ninguna decisi??n importante, por ejemplo, financiera olegal, el d??a siguiente a recibir sedaci??n. ??? Siga todas las dem??s instrucciones que le d?? elproveedor. ?? Earlene la sedaci??n para un procedimiento Es posible que le ryan el procedimiento en un hospital o jesus cl??anna marie. Un proveedor de atenci??n m??dica capacitado especialmente le administrar?? la sedaci??n. En l??neas generales, suceder?? lo siguiente: ??? Le henny??n estos medicamentos mediante jesus v??a intravenosa en el brazo o en la mano. Tambi??n puede recibir jesus inyecci??n o tomarlos por v??a oral. O podr??a inhalarlos a miriam??s de jesus mascarilla. ??? Si le administran los medicamentos a miriam??s de jesus v??a intravenosa, podr?? sentir los efectos muy r??pidamente. Comenzar?? a sentirse relajado y somnoliento. ??? Earlene el procedimiento, le observar??n con atenci??n la frecuencia card??patricia, la respiraci??n y la presi??n arterial. L a respiraci??n y la presi??n arterial pueden bajar un poco. Kendrick probablemente no necesite ayuda para respirar. Es posible que reciba un poco m??s de ox??sasha. Sylvia ox??sasha se administra a miriam??s de jesus mascarilla o de jesus sonda nasal. ??? Probablemente, estar?? despierto todo el tiempo. Si se duerme, podr??n despertarlo sin problemas de ser necesario. Deber??a sentir poco o nada de dolor. ??? Cuando termine bragg procedimiento, se detendr??n los efectos de la sedaci??n. ?? Despu??s de la sedaci??n para un procedimiento Empezar?? a sentirse m??s despierto y consciente. Kendrick es probable que siga estando algo somnoliento por un tiempo despu??s del procedimiento. Seguir?? en observaci??n hasta que est?? m??s alerta. Puede que tenga un vago recuerdo del procedimiento. O que no lo recuerde en absoluto. Deber??a poder regresar a bragg casa entre 1??y 2??horas despu??s del procedimiento. Planifique que unadulto de confianza se quede con usted earlene unas horas. Esta persona deber?? vigilar que la afecci??n no empeore. Tambi??n deber?? estar atenta a cualquier problema y cuidarlo. Quiz?? tenga efectos secundarios, nelly n??useas, fatiga o inestabilidad earlene hasta 24??horas. Tambi??n puede sentirse mareado. Informe al proveedor de atenci??n m??dica si estos efectos contin??an. No conduzca ni use maquinaria peligrosa earlene las pr??ximas 24??horas. Adem??s, no tome decisiones comerciales ni personales importantes. Tampoco jose alcohol earlene las pr??ximas 24??horas. Tengaespecial cuidado al caminar y moverse, ya que puede tener m??s riesgo de caerse. Siga las instrucciones que le dieron sobre las comidas y bebidas. Aseg??rese de seguir todas las instrucciones de cuidados posteriores al procedimiento. ?? Cu??ndo debe llamar al proveedor de atenci??n m??dica Pida a alguien que llame al proveedor de atenci??n m??dica de inmediato ante cualquiera de los siguientes signos o s??ntomas: ??? Somnolencia que empeora ??? Debilidad o mareos que empeoran ??? V??mitos persistentes ??? Habla con dificultad y los dem??s no pueden entenderlo ??? Dolor intenso o tommy luego del procedimiento, que no se justine con los analg??sicos (si se recetan) ??? Fiebre de 100.4?F (38?C) o superior, o seg??n le indique el proveedor de atenci??n m??dica ??? Sarpullidonuevo ?? Cu??ndo llamar al 911 Pida que alguien llame al 911 ante cualquiera de los siguientes s??ntomas: ??? Dificultad para respirar ??? Dificultad para tragar ??? Dolor de pecho ??? P??rdida del conocimiento o no pueden despertarlo ?? Last Reviewed Date: 2021 ?? [employer]. All rights reserved. This information is not intended as a substitute for professional medical care. Always follow your healthcare professional's instructions. ?? * Yael Ibarra RN: PERFORM Event Display: Patient Education Leaflets Authored Date: [id number] Surgery Radial Cath Approach Discharge Instructions ?? 278 Radial Cath Approach Discharge Instructions ?? Activity Take it easy the rest of the day. Limit your activity on the affected side.?? Act as if your arm is broken for 24 hours. No lifting with affected arm for 24 hours. No pushing or pulling with the affected arm. Do not reach or lift with the affected arm. Do not place excessive pressure on the wrist. ?? Precautions Due to intravenous sedation: It is recommended that someone stay with you for the first night after your procedure. Do not drive or operate hazardous machinery for 24 hours. Do not make legal decisions for 24 hours. Avoid alcohol for 24 hours. Unless directed otherwise, keep yourself hydrated. ?? Dressing/Incision Care You may remove the dressing 24 hours after your procedure. Replace with band aid for an additional 24 hours. You may shower and cleanse the site with soap & water then pat dry. Avoid submersion of site in water x 5 days. Cover the with a clean band aid daily until site is healed. If the band aid becomes soiled, replacewith a clean new one. Do not apply any ointments, lotions, gels or powders to the puncture site. ?? When to contact your doctor If any of the following signs of infection occur: Fever greater than 100 degrees F Increased pain Drainage, redness or warmth at puncture site Tingling of the fingers and hand that last longer than 3 days Slight bubble of blood or bleeding from site: apply manual pressure and notify your doctor ?? Emergency situations: Bleeding from the site that will not stop: apply manual pressure and notify your doctor Profuse bleeding streaming from the puncture site: Apply manual pressure and notify your doctor immediately If your hand becomes bluish, cold to the touch, or painful, notify your doctor immediately or go toEmergency Department. For these emergent situations: If unable to contact your physician, call 911. ?? Hospital Progress note * Yael Ibarra RN: PERFORM, SIGN, VERIFY Event Display: Progress Note Hospital Authored Date: [id number] Patient: IZABEL ROBIN Age: 53 years Sex: Female : 1970 Associated Diagnoses: None Author: Stacey QUICK, Yael Findings Evaluation Patients blood pressure dipped down to 89/56 post cath. Pt takes Midodrine 5mg three times a day athome. Dr. Pandya paged and orders obtained to give patient 5mg of Midodrine. Med administered. Pt denies dizziness or lightheadiness. Pt encouraged to drink fluids. Blood pressure improved to 117/75. Patient came in with a francisco from home. Francisco emptied for 500ml at discharge of clear/yellow/urine.See care unit ineteractive flowsheets for complete post procedural care. . Patient Care team information Care Team Personnel Name: Therese Slaughter RN Position: [facility] RN Member Role: Primary Care Nurse Name: Kristin Todd MD Position: [facility] Outreach Member Role: PCP Address: [address] [place] [address] Telecom: Name: Alva Field RN Position: [facility] RN Supv Member Role: Primary Care Nurse Name: Florina Vargas RN Position: [facility] RN Member Role: Primary Care Nurse Name: Ankita Sow RN Position: [facility] RN Member Role: Primary Care Nurse Name: Ronald Douglas RN Position: [facility] RN Member Role: Primary Care Nurse Name: Leatha Hood RN Position: [facility] RN Member Role: Primary Care Nurse Name: Shania Quintero RN Position: [facility] RN Member Role: Primary Care Nurse Name: Cesar Boogie RN Position: [facility] BRYNN RN W/OE and Tasks Member Role: Primary Care Nurse Name: Chantelle Shepherd RN Position: [facility] RN Member Role: Primary Care Nurse Name: Tamra Frazier RN Position: [facility] SN RN Member Role: Primary Care Nurse Name: Savannah Gibbs RN Position: [facility] RN Member Role: Primary Care Nurse Name: Monserrat Em RN Position: [facility] Michelle RN Member Role: Primary Care Nurse Name: Courtney Bueno RN Position: [facility] RN Member Role: Primary Care Nurse Name: Akila Kennedy RN Position: S RN Member Role: Primary Care Nurse Name: Jany Celis RN Position: [facility] RN Supv Member Role: Primary Care Nurse Name: May Rob RN Position: [facility] RN Supv Member Role: Primary Care Nurse Name: Camden Caraballo RN Position: S RN Member Role: Primary Care Nurse Name: Jono Gresham MD Position: [facility] Outreach Member Role: Lifetime Consulting Physician Address: [address] [facility] [address] [facility], [place] [address]- Telecom: Name: Cassandra Rosas Position: [facility] Outreach Member Role: Lifetime Consulting Physician Name: Kandis Benavides RN Position: [facility] RN Member Role: Primary Care Nurse Name: Marina Nick RN Position: [facility] RN Member Role: Primary Care Nurse Name: Acacia Haskins NP Position: [facility] Associate Professional Member Role: Primary Care Nurse Address: [address] [facility] [place], [place] [address] Telecom: Name: Jeimy Massey RN Position: [facility] RN Member Role: Primary Care Nurse Name: Meera Hamm RN Position: [facility] RN Member Role: Primary Care Nurse Name: Melanie Prater RN Position: [facility] Onco RN Member Role: Primary Care Nurse Name: Dary Cardona RN, I Position: [facility] RN Member Role: Primary Care Nurse Care Team Related Persons Name: MONET BOYER Name: ROBINIZABEL Name: JAKE ROBIN Name: ROBIN, METRESSILY Name: [employer] Insurance Providers Guarantor name: IZABEL ROBIN Health Plan Information #: 1 Payer: [employer] Member Number: [id number] Policy Number: NA Group Number: NA Health Plan Information #: 2 Payer: [employer] Member Number: [id number] Policy Number: NA Group Number: NA
--- OUTSIDE RECORDS SUMMARY | 2024-03-06 16:02 | XMS_ITS | Continuity of Care Document ---
Author Organization [facility]NEQUIN [facility]OLDER Oncolog y Address [address] [place] [address]- Care Team Providers Care Fur Examiner Name Role Phone Peyton JORDAN, Kristin Abernathy Primary Care Physician [id number]s): 11/03/23 - 03/02/24 [facility] Oncology [address] [place] [address] Attending Physician: Angelica Garcia Admitting Physician: Angelica Garcia Encounter Type: Pre-OutPatient One Time Allergies, Adverse Reactions, Alerts No Known Allergies [...] as needed for insomnia, 0 Refills, Maintenance, 5/17/19 12:55:26 PM EDT, Tablet Start Date: 08/11/18 [...] 1:10:00 PM EST, Route to Pharmacy Electronically, [facility], Partial fill upon patient request if the prescription is for a schedule II opioid drug., 157, cm, 04/03/20 11:17:00 EST, Height, 113.9, kg, 03/23/20 18:19:00 EST, Dry Weight Start Date: 04/03/20 Status: Ordered Quantity: 42.0 Unit: tablet Repeat number: 1 Risperdal Consta 50 mg [...] cervical cancer, Stage IIIB, T2 N1 Mx, 2014 1 Confirmed Active Lymphedema Confirmed Active Uses Urdu as primary spoken language Confirmed Active Vulvar mass Confirmed Active 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 Pt did not keep sched appt. She rescheduled and did not keep the 2nd appt. Letter sent to thereferring source. Social History Social History Type Response Smoking [...] Code MRI Safety Implantable Status Assigning Authority [id number] Unknown [id number] Unknown 08/23/19 Unknown Unknown Active GS1 Procedure Provider Procedure Date Device Type Site Repair Hernia Ventral Laparoscopic Rigo Real MD 10/27/17 Unknown Abdomen Device Identifier Serial Number Lot or Batch Number Manufacturing Date Expiration Date Distinct Identification Code MRI Safety Implantable Status Assigning Authority [id number] Unknown [id number] Unknown 07/24/19 Unknown Unknown Active GS1 Procedure Provider Procedure Date Device Type Site Repair Hernia Ventral Laparoscopic Rigo Real MD 10/27/17 Unknown Abdomen Device Identifier Serial Number Lot or Batch Number Manufacturing Date Expiration Date Distinct Identification Code MRI Safety Implantable Status Assigning Authority [id number] Unknown [id number] Unknown 08/23/19 Unknown Unknown Active GS1 Patient Care team information Care Team Personnel Name: Therese Slaughter RN Position: [facility] RN Member Role: Primary Care Nurse Name: Kristin Todd MD Position: [facility] Outreach Member Role: PCP Address: [address] [place] [address] Telecom: Name: Alva Field RN Position: [facility] RN Supv Member Role: Primary Care Nurse Name: Florina Vargas RN Position: [facility] RN Member Role: Primary Care Nurse Name: Ankita Sow RN Position: [facility] RN Member Role: Primary Care Nurse Name: Ronald Douglas RN Position: [facility] RN Member Role: Primary Care Nurse Name: Leatha Hood RN Position: [facility] RN Member Role: Primary Care Nurse Name: Shania Quintero RN Position: [facility] RN Member Role: Primary Care Nurse Name: Cesar Boogie RN Position: [facility] ED RN W/OE and Tasks Member Role: Primary Care Nurse Name: Chantelle Shepherd RN Position: [facility] RN Member Role: Primary Care Nurse Name: Tamra Frazier RN Position: [facility] SN RN Member Role: Primary Care Nurse Name: Savannah Gibbs RN Position: [facility] RN Member Role: Primary Care Nurse Name: Monserrat Em RN Position: [facility] Onco RN Member Role: Primary Care Nurse Name: Courtney Bueno RN Position: S RN Member Role: Primary Care Nurse Name: Akila Kennedy RN Position: [facility] RN Member Role: Primary Care Nurse Name: Jany Celis RN Position: [facility] RN Supv Member Role: Primary Care Nurse Name: May Rob RN Position: [facility] RN Supv Member Role: Primary Care Nurse Name: Camden Caraballo RN Position: [facility] RN Member Role: Primary Care Nurse Name: Jono Gresham MD Position: [facility] Outreach Member Role: Lifetime Consulting Physician Address: [address] [facility] [address] [facility] [place], [place] [address] Telecom: Name: Cassandra Rosas Position: [facility] Outreach Member Role: Lifetime Consulting Physician Name: Kandis Benavides RN Position: [facility] RN Member Role: Primary Care Nurse Name: Marina Nick RN Position: [facility] RN Member Role: Primary Care Nurse Name: Acacia Haskins NP Position: [facility] Associate Professional Member Role: Primary Care Nurse Address: [address] [facility] [address] Telecom: Name: Jeimy Massey RN Position: [facility] RN Member Role: Primary Care Nurse Name: Meera Hamm RN Position: [facility] RN Member Role: Primary Care Nurse Name: Melanie Prater RN Position: [facility] Onco RN Member Role: Primary Care Nurse Name: Dary Cardona RN, I Position: [facility] RN Member Role: Primary Care Nurse Care Team Related Persons Name: MONET BOYER Name: IZABEL ROBIN Name: JAKE ROBIN Name: ISMA ROBIN Name: [employer] Insurance Providers Guarantor name: IZABEL ROBIN Health Plan Information #: 1 Payer: [facility] Member Number: [id number] Policy Number: NA Group Number: NA Health Plan Information #: 2 Payer: [employer] Member Number: [id number] Policy Number: NA Group Number: NA
--- OUTSIDE RECORDS SUMMARY | 2024-03-06 16:02 | XMS_ITS | Continuity of Care Document ---
Author Organization [facility] ter Address [address] [place] [address]- Care Team Providers Care Books Salesperson Name Role Phone Peyton JORDAN, Kristin Abernathy Primary Care Physician Encounter [facility] [id number] Date(s): 02/03/24 - 02/29/[address] [address] Attending Physician: Vijay Lobato MD Admitting Physician: Vijay Lobato MD Referring Physician: Luis Nino NP, V Encounter Type: Preadmit Daystay Allergies, Adverse Reactions, Alerts No Known [...] 1:10:00 PM EST, Route to Pharmacy Electronically, [facility], Partial fill upon patient request [...] Atypical ductal hyperplasia, ADH, of Right breast, 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 Hematuria Confirmed Active Liver cirrhosis secondary to MALDONADO Confirmed Active Vulvar dysplasia Confirmed Active GERD with stricture Confirmed Active History of deep vein thrombosis (DVT) cephalic Confirmed Active Hx of cervical cancer, Stage IIIB, T2 N1 Mx, 2014 1 Confirmed Active Lymphedema Confirmed Active Uses Dutch as primary spoken language Confirmed Active Vulvar [...] Code MRI Safety Implantable Status Assigning Authority [id number] Unknown [id number] Unknown 08/23/19 Unknown Unknown Active GS1 Procedure Provider Procedure Date Device Type Site Repair Hernia Ventral Laparoscopic Addie JORDAN, Rigo 10/27/17 Unknown Abdomen Device Identifier Serial Number Lot or Batch Number Manufacturing Date Expiration Date Distinct Identification Code MRI Safety Implantable Status Assigning Authority [id number] Unknown [id number] Unknown 07/24/19 Unknown Unknown Active GS1 Procedure Provider Procedure Date Device Type Site Repair Hernia Ventral Laparoscopic Addie JORDAN, Rigo 10/27/17 Unknown Abdomen Device Identifier Serial Number Lot or Batch Number Manufacturing Date Expiration Date Distinct Identification Code MRI Safety Implantable Status Assigning Authority [id number] Unknown [id number] Unknown 08/23/19 Unknown Unknown Active GS1 Patient Care team information Care Team Personnel Name: Therese Slaughter RN Position: [facility] RN Member Role: Primary Care Nurse Name: Kristin Todd MD Position: [facility] Outreach Member Role: PCP Address: [address] [place] [address] Telecom: Name: Alva Field RN Position: [facility] RN Supv Member Role: Primary Care Nurse Name: Florina Vargas RN Position: [facility] RN Member Role: Primary Care Nurse Name: Ankita Sow RN Position: [facility] RN Member Role: Primary Care Nurse Name: Ronald Douglas RN Position: [facility] RN Member Role: Primary Care Nurse Name: Leatha Hood RN Position: [facility] RN Member Role: Primary Care Nurse Name: Shania Quintero RN Position: [facility] RN Member Role: Primary Care Nurse Name: Cesar Boogie RN Position: [facility] BRYNN RN W/OE and Tasks Member Role: Primary Care Nurse Name: Chantelle Shepherd RN Position: [facility] RN Member Role: Primary Care Nurse Name: Tamra Frazier RN Position: [facility] SN RN Member Role: Primary Care Nurse Name: Savannah Gibbs RN Position: [facility] RN Member Role: Primary Care Nurse Name: Monserrat Em RN Position: [facility] Onco RN Member Role: Primary Care Nurse Name: Courtney Bueno RN Position: [facility] RN Member Role: Primary Care Nurse Name: Akila Kennedy RN Position: [facility] RN Member Role: Primary Care Nurse Name: Jany Celis RN Position: [facility] RN Supv Member Role: Primary Care Nurse Name: May Rob RN Position: [facility] RN Supv Member Role: Primary Care Nurse Name: Kateryna Hein RN Position: [facility] RN Member Role: Primary Care Nurse Name: Camden Caraballo RN Position: [facility] RN Member Role: Primary Care Nurse Name: Jono Gresham MD Position: [facility] Renal MD Member Role: Lifetime Consulting Physician Address: [address] [facility] [address] [facility] [place], [place] [address]- Telecom: Name: Cassandra Rosas Position: [facility] Outreach Member Role: Lifetime Consulting Physician Name: Kandis Benavides RN Position: [facility] RN Member Role: Primary Care Nurse Name: Marina Nick RN Position: [facility] RN Member Role: Primary Care Nurse Name: Acacia Haskins NP Position: [facility] Associate Professional Member Role: Primary Care Nurse Address: [address] [facility] [place], [place] [address] Telecom: Name: Jeimy Massey RN Position: [facility] RN Member Role: Primary Care Nurse Name: Meera Hamm RN Position: [facility] RN Member Role: Primary Care Nurse Name: Melanie Prater RN Position: [facility] Onco RN Member Role: Primary Care Nurse Name: Dary Cardona RN, I Position: [facility] RN Member Role: Primary Care Nurse Care Team Related Persons Name: MONET BOYER Name: IZABEL ROBIN Name: JAKE ROBIN Name: ROBIN, METRESSTAI Name: [employer] Insurance Providers Guarantor name: IZABEL ROBIN Health Plan Information #: 1 Payer: [facility] Member Number: [id number] Policy Number: NA Group Number: NA Health Plan Information #: 2 Payer: [facility] Member Number: [id number] Policy Number: NA Group Number: NA
== END 2024-02-29 01:55 | disposition home or self-care (01) ==
PROVIDERS: Emergency Provider Internal Medicine; PCP Pediatrics
DX: N31.9 Neuromuscular dysfunction of bladder, unspecified (principal); R33.9 Retention of urine, unspecified; R10.2 Pelvic and perineal pain; R30.0 Dysuria; E11.9 Type 2 diabetes mellitus without complications; F20.9 Schizophrenia, unspecified; Z86.718 Personal history of other venous thrombosis and embolism; Z79.01 Long term (current) use of anticoagulants; Z79.899 Other long term (current) drug therapy
CPT/HCPCS: 36415; 51702; 80053; 81001; 83690; 85025; 87086; 87147; 99283; 99285

== ENCOUNTER → 2024-03-08 09:54 | Outpatient (BNVA) | payer MEDICAID, SELFPAY | PROVIDERS: PCP Pediatrics; Visit Provider Nurse Practitioner Family | DX: N31.9 Neuromuscular dysfunction of bladder, unspecified (principal); N39.0 Urinary tract infection, site not specified; T83.511A Infection and inflammatory reaction due to indwelling urethral catheter, initial encounter | CPT/HCPCS: 51702 ==

== ENCOUNTER 2024-03-15 14:20 | Outpatient (REF) | payer MEDICAID, SELFPAY ==
[2024-03-15 17:42] LABS: Anion Gap 11 (12-20); Blood Urea Nitrogen 15 mg/dL (9-16); Carbon Dioxide 31 mmol/L (22-29); Chloride 101 mmol/L (96-108); Estimated Glomerular Filt Rate > 60; Glucose Random 79 mg/dL (60-115); Potassium 3.9 mmol/L (3.3-5.1); Sodium 139 mmol/L (135-145)
== END 2024-03-15 14:21 | disposition home or self-care (01) ==
LOC: HO.CHCLDS 14:20
PROVIDERS: Visit Provider Internal Medicine
DX: R10.30 Lower abdominal pain, unspecified (principal)
CPT/HCPCS: 36415; 80048

== ENCOUNTER 2024-04-02 14:59 | Outpatient (AMB) | payer MEDICAID, SELFPAY ==
--- NOTE | 2024-04-01 17:44 | A.OFFVIS_ITS ---
Intake Visit Reasons: 4weeks f/u Intake Note: Patient is present for Catheter Change Urology Med: Bethanechol Antibiotic Allergy: None Blood Thinner: Warfarin Advertising Vice President Services: Advertising Vice President Offered & Declined Allergies No Known Allergies [No Known Allergies*] Allergy (Verified 04/02/24 16:16) Medication List - Last Reconciled 04/02/24 by Suzie Byers MD benztropine 0.5 mg PO BID PRN bethanechol chloride 50 mg PO BID bupropion HCl SR 200 mg PO BID citalopram 40 mg PO DAILY furosemide 40 mg PO DAILY hydroxyzine pamoate 25 mg PO TID PRN loratadine 10 mg PO DAILY midodrine 5 mg PO TID nystatin 1 appl topical BID ondansetron HCl 4 mg PO BID polyethylene glycol 3350 (Miralax) 17 grams PO DAILY PRN risperidone microspheres ER (Risperdal Consta) 50 mg IM Q2W spironolactone 25 mg See Protocol PO BID@0900,1800 warfarin (Jantoven) 6 mg (2 x 3 mg) PO DAILY@1800 zolpidem 10 mg PO BEDTIME HPI Comments Details: 04/02/23--Miriam is a 53-year-old Liberian-speaking female here due to urinary retention. Her FLIGHT COORDINATOR is present and interprets for her. She has a past medical history of anasarca, liver cirrhosis secondary to MALDONADO, urinary tract infection, cervical cancer, cardiac arrest, and DVT. She presents to the office today for follow-up of her urinary retention. Discussed SP tube placement. CoMorbidity - Obesity. on coumadin. Reviewed renal US 01/11/24--Normal-appearing kidneys. No obvious cause such as hydronephrosis Review of chart: 02/02/24--Miriam is a 53-year-old Liberian-speaking female patient of was accompanied by her [id number] at today's office visit. She has a past medical history of anasarca, urinary retention, liver cirrhosis secondary to MALDONADO, urinary tract infection, cervical cancer, cardiac arrest, and DVT. She presents to the office today for follow-up of her urinary retention. In discussion with the patient and her [id number] at today's office visit she discusses ongoing issues with urinary retention/incomplete bladder emptying. In review of patient's chart patient was hospitalized on 2 different admissions at which time urology was consulted for urinary retention. Patient reports compliance with Flomax as prescribed. She reports noting over the last 2-3 day she has noted foul-smelling urine. In office voiding trial was performed and patient was able to independently void. We discussed at length potential causes of urinary retention/incomplete bladder emptying as well as further treatment options. In review of patient's chart it appears retroperitoneal ultrasound was ordered and performed. These results were reviewed with the patient today. Bilateral kidneys are normal in size, contour, and echogenicity. No renal calculi, lesions, and or hydronephrosis noted. The bladder was well distended and normal bilateral ureteral jets are demonstrated. A Mcallister was present in the bladder. She reports noting over the last 6-8 months she has had issues with emptying her bladder. She otherwise denies flank pain, fever, and or chills. [facility] Medical History Anasarca Urinary retention Hepatorenal syndrome Liver cirrhosis secondary to MALDONADO Obstructive uropathy Hyponatremia Cirrhosis of liver with ascites Acute kidney insufficiency UTI (urinary tract infection) Cervical cancer Lymphedema Cardiac arrest DVT (deep venous thrombosis) Social History Household Members: Family Household Members Other:: Son, daughter Housing: Apartment Do you presently have visiting nurse or other home services: Yes Alcohol intake: never Comment: DAUGHTER STAYING OVERNIGHT Patient Tobacco Use Status: Never used Tobacco e-Cigarette/Vaping Use: Never Used Advance Directives Date on File: 01/03/23 service: No Review of Systems Const All systems reviewed & are unremarkable except as noted in HPI and below Reports no additional complaints Eyes Reports no additional complaints ENT Reports no additional complaints Card Reports no additional complaints Resp Reports no additional complaints GI Reports no additional complaints Reports as per HPI Musc Reports no additional complaints Skin/Breast Reports system reviewed and no additional complaints, except as documented Neuro Reports no additional complaints Psych Reports no additional complaints Endo Reports no additional complaints Rebel/Lymph Reports no additional complaints Aller/Immun Reports no additional complaints Results Reviewed Results Reviewed: Date of Service: 01/11/24 EXAMINATION: US RETROPERITONEAL COMPLETE (RENAL) FINDINGS: RIGHT KIDNEY: 9.7 x 4.2 x 5.6 cm (SAG x AP x TRV). The kidney is normal in size, contour, and echogenicity. Renal cortical thickness is normal. No calculi or focal parenchymal lesions. No hydronephrosis. LEFT KIDNEY: 10.7 x 6.0 x 3.4 cm (SAG x AP x TRV). The kidney is normal in size, contour, and echogenicity. Renal cortical thickness is normal. No calculi or focal parenchymal lesions. No hydronephrosis. The left-sided retroperitoneal collection posterior to the left kidney is not identified on this study. BLADDER: Well distended and normal. Bilateral ureteral jets are not demonstrated. Prevoid bladder volume is 972 mL. A Mcallister catheter is present in the bladder. ADDITIONAL FINDINGS: Ascites is seen in all 4 quadrants IMPRESSION: 1. Normal-appearing kidneys. No obvious cause such as hydronephrosis is seen to account for deteriorating renal function. 2. Ascites. 3. The left-sided retroperitoneal collection is not identified on this study. Assessment & Plan Assessment & Plan (1) Neurogenic bladder: Code(s): N31.9 - Neuromuscular dysfunction of bladder, unspecified Category: Medical Plan Cystotomy, suprapubic tube insertion Patient Instructions: The patient had an opportunity to ask questions regarding treatment plan. The patient expressed understanding and agreement with the above treatment plan. The patient is aware they should contact our office by phone for worsening of their current condition or the appearance of new symptoms. Compliance is encouraged with any medications and followup testing that is ordered. It is a privilege to be allowed the opportunity to participate in the urologic care of your patient. If you have any questions or concerns regarding treatment for the above conditions please do not hesitate to contact me. The office telephone contact is [phone]. This note is constructed in part using voice recognition software. While every effort has been made to ensure accuracy forklift wheel loader errors may have been inc luded. Yours sincerely, Suzie Byers MD Coding Level of Care Code Est Pt Level 4 (29977) Diagnoses Neurogenic bladder N31.9
--- OUTSIDE RECORDS SUMMARY | 2024-04-02 17:02 | XMS_ITS | Continuity of Care Document ---
Author Organization [facility] Adult Address [address] [place] [address]- Care Team Providers Care Plastics Design Engineer Name Role Phone Peyton JORDAN, Kristin Abernathy Primary Care Physician En[place] [facility] [place] [id number] Date(s): 02/28/24 - 03/29/24 [facility] [address] [place] [address]- Attending Physician: Jeanmarie Sadler Admitting Physician: Jeanmarie Sadler Referring Physician: Jeanmarie Sadler Encounter Type: Triage Allergies, Adverse Reactions, Alerts No Known Allergies [...] 1:10:00 PM EST, Route to Pharmacy Electronically, [facility], Partial fill upon patient [...] 1 Confirmed Active Lymphedema Confirmed Active Uses Danish as primary spoken language Confirmed Active Vulvar [...] Code MRI Safety Implantable Status Assigning Authority [id number] Unknown [id number] Unknown 08/23/19 Unknown Unknown Active GS1 Procedure Provider Procedure Date Device Type Site Repair Hernia Ventral Laparoscopic Addie JORDAN, Rigo 10/27/17 Unknown Abdomen Device Identifier Serial Number Lot or Batch Number Manufacturing Date Expiration Date Distinct Identification Code MRI Safety Implantable Status Assigning Authority [id number] Unknown [id number] Unknown 07/24/19 Unknown Unknown Active GS1 Procedure Provider Procedure Date Device Type Site Repair Hernia Ventral Laparoscopic Addie JORDAN, Rigo 10/27/17 Unknown Abdomen Device Identifier Serial Number Lot or Batch Number Manufacturing Date Expiration Date Distinct Identification Code MRI Safety Implantable Status Assigning Authority [id number] Unknown [id number] Unknown 08/23/19 Unknown Unknown Active GS1 Patient Care team information Care Team Personnel Name: Therese Slaughter RN Position: [facility] RN Member Role: Primary Care Nurse Name: Kristin Todd MD Position: [facility] Outreach Member Role: PCP Address: [address] [place] [address] Telecom: Name: Alva Field RN Position: [facility] RN Supv Member Role: Primary Care Nurse Name: Florina Vargas RN Position: [facility] RN Member Role: Primary Care Nurse Name: Ankita Sow RN Position: [facility] RN Member Role: Primary Care Nurse Name: Ronald Douglas RN Position: [facility] RN Member Role: Primary Care Nurse Name: Leatha Hood RN Position: [facility] RN Member Role: Primary Care Nurse Name: Shania Quintero RN Position: [facility] RN Member Role: Primary Care Nurse Name: Cesar Boogie RN Position: [facility] ED RN W/OE and Tasks Member Role: Primary Care Nurse Name: Chantelle Shepherd RN Position: [facility] RN Member Role: Primary Care Nurse Name: Tamra Frazier RN Position: [facility] SN RN Member Role: Primary Care Nurse Name: Savannah Gibbs RN Position: [facility] RN Member Role: Primary Care Nurse Name: Monserrat Em RN Position: [facility] Onco RN Member Role: Primary Care Nurse Name: Courtney Bueno RN Position: [facility] RN Member Role: Primary Care Nurse Name: Akila Kennedy RN Position: [facility] RN Member Role: Primary Care Nurse Name: Jany Celis RN Position: [facility] RN Supv Member Role: Primary Care Nurse Name: May Rob RN Position: [facility] RN Supv Member Role: Primary Care Nurse Name: Camden Caraballo RN Position: [facility] RN Member Role: Primary Care Nurse Name: Jono Gresham MD Position: [facility] Outreach Member Role: Lifetime Consulting Physician Address: [address] [facility] [place], [place] [address] Telecom: Name: Cassandra Rosas Position: [facility] Outreach Member Role: Lifetime Consulting Physician Name: Kandis Benavides RN Position: [facility] RN Member Role: Primary Care Nurse Name: Marina Nick RN Position: [facility] RN Member Role: Primary Care Nurse Name: Acacia Haskins NP Position: [facility] Associate Professional Member Role: Primary Care Nurse Address: [address] [facility] [place], [place] [address] Telecom: Name: Jeimy Massey RN Position: [facility] RN Member Role: Primary Care Nurse Name: Meera Hamm RN Position: [facility] RN Member Role: Primary Care Nurse Name: Melanie Prater RN Position: [facility] Onco RN Member Role: Primary Care Nurse Name: Dary Cardona RN, I Position: [facility] RN Member Role: Primary Care Nurse Care Team Related Persons Name: MONET BOYER Name: IZABEL ROBIN Name: JAKE ROBIN Name: ROBIN, METRESSILY Name: [employer] Insurance Providers Guarantor name: [facility] Health Plan Information #: 1 Payer: [facility] Member Number: NA Policy Number: NA Group Number: NA
--- OUTSIDE RECORDS SUMMARY | 2024-04-02 17:02 | XMS_ITS | Continuity of Care Document ---
Author Organization [facility] Address [address] [place] [address]- Care Team Providers Care Global Climate Change Researcher Name Role Phone Peyton JORDAN, Kristin Abernathy Primary Care Physician [id number] Date(s): 02/22/24 - 03/29/24 [facility] [address] [place] [address]- Attending Physician: Not on Staff, Attending MD Encounter Type: Pre Office Visit Allergies, Adverse Reactions, Alerts No Known Allergies [...] EST, Route to Pharmacy Electronically, [facility], Partial fill upon patient request if [...] 1 Confirmed Active Lymphedema Confirmed Active Uses Swedish as primary spoken language Confirmed Active Vulvar [...] Code MRI Safety Implantable Status Assigning Authority [id number] Unknown [id number] Unknown 08/23/19 Unknown Unknown Active GS1 Procedure Provider Procedure Date Device Type Site Repair Hernia Ventral Laparoscopic Rigo Real MD 10/27/17 Unknown Abdomen Device Identifier Serial Number Lot or Batch Number Manufacturing Date Expiration Date Distinct Identification Code MRI Safety Implantable Status Assigning Authority [id number] Unknown [id number] Unknown 07/24/19 Unknown Unknown Active GS1 Procedure Provider Procedure Date Device Type Site Repair Hernia Ventral Laparoscopic Rigo Real MD 10/27/17 Unknown Abdomen Device Identifier Serial Number Lot or Batch Number Manufacturing Date Expiration Date Distinct Identification Code MRI Safety Implantable Status Assigning Authority [id number] Unknown [id number] Unknown 08/23/19 Unknown Unknown Active GS1 Patient Care team information Care Team Personnel Name: Therese Slaughter RN Position: [facility] RN Member Role: Primary Care Nurse Name: Kristin Todd MD Position: [facility] Outreach Member Role: PCP Address: [address] [place] [address] Telecom: Name: Alva Field RN Position: [facility] RN Supv Member Role: Primary Care Nurse Name: Florina Vargas RN Position: [facility] RN Member Role: Primary Care Nurse Name: Ankita Sow RN Position: [facility] RN Member Role: Primary Care Nurse Name: Ronald Douglas RN Position: [facility] RN Member Role: Primary Care Nurse Name: Leatha Hood RN Position: [facility] RN Member Role: Primary Care Nurse Name: Shania Quintero RN Position: [facility] RN Member Role: Primary Care Nurse Name: Cesar Boogie RN Position: [facility] BRYNN RN W/OE and Tasks Member Role: Primary Care Nurse Name: Chantelle Shepherd RN Position: [facility] RN Member Role: Primary Care Nurse Name: Tamra Frazier RN Position: [facility] SN RN Member Role: Primary Care Nurse Name: Savannah Gibbs RN Position: [facility] RN Member Role: Primary Care Nurse Name: Monserrat Em RN Position: [facility] Onco RN Member Role: Primary Care Nurse Name: Courtney Bueno RN Position: [facility] RN Member Role: Primary Care Nurse Name: Akila Kennedy RN Position: [facility] RN Member Role: Primary Care Nurse Name: Jany Celis RN Position: [facility] RN Supv Member Role: Primary Care Nurse Name: May Rob RN Position: [facility] RN Supv Member Role: Primary Care Nurse Name: Camden Caraballo RN Position: [facility] RN Member Role: Primary Care Nurse Name: Jono Gresham MD Position: [facility] Outreach Member Role: Lifetime Consulting Physician Address: [address] [facility] [address] [facility], [place], [place] [address] Telecom: Name: Cassandra Rosas Position: [facility] Outreach Member Role: Lifetime Consulting Physician Name: Kandis Benavides RN Position: [facility] RN Member Role: Primary Care Nurse Name: Marina Nick RN Position: [facility] RN Member Role: Primary Care Nurse Name: Acacia Haskins NP Position: [facility] Associate Professional Member Role: Primary Care Nurse Address: [address] [facility] [address] Telecom: Name: Jeimy Massey RN Position: [facility] RN Member Role: Primary Care Nurse Name: Meera Hamm RN Position: [facility] RN Member Role: Primary Care Nurse Name: Melanie Prater RN Position: [facility] Onco RN Member Role: Primary Care Nurse Name: Dary Cardona RN, I Position: [facility] RN Member Role: Primary Care Nurse Care Team Related Persons Name: MONET BOYER Name: IZABEL ROBIN Name: JAKE ROBIN Name: ISMA ROBIN Name: [employer] Insurance Providers Guarantor name: IZABEL ROBIN Health Plan Information #: 1 Payer: [facility] Member Number: [id number] Policy Number: NA Group Number: NA Health Plan Information #: 2 [facility] Member Number: [id number] Policy Number: NA Group Number: NA
== END 2024-04-02 16:48 | disposition home or self-care (01) ==
PROVIDERS: PCP Pediatrics; Visit Provider Urology
DX: N31.9 Neuromuscular dysfunction of bladder, unspecified (principal)
CPT/HCPCS: 99214

== ENCOUNTER → 2024-04-02 14:59 | Outpatient (BNVA) | payer MEDICAID, SELFPAY | PROVIDERS: PCP Pediatrics; Visit Provider Urology | DX: N31.9 Neuromuscular dysfunction of bladder, unspecified (principal) | CPT/HCPCS: 99212 ==

== ENCOUNTER 2024-05-08 | Outpatient (REF) | payer MEDICAID, SELFPAY ==
--- OUTSIDE RECORDS SUMMARY | 2024-09-18 14:30 | XMS_ITS | Encounter Summary ---
Author Organization [facility] Address [address] [place] [address] Care Team Providers Care Financial Institution President Name Role Phone Kristin Todd Primary Care Provider [phone] Encounter Details Date Type Department Care Team ([facility] st Contact Info) Description 01/19/2023 Orders Only [facility] Interventional Radiology [address] [place] [address] Rosendo Church MD [address] [place] [address] [phone] Social History Tobacco Use Types Packs/Day Years [...] on filedocumented in this encounter Care Teams Financial Institution President Relationship Specialty Start Date End Date Kristin Todd [address] [place] [address] PCP - General Internal Medicine 01/21/23 documented as of this encounter
== END 2024-05-08 00:01 | disposition home or self-care (01) ==
LOC: CF
PROVIDERS: PCP Pediatrics; Visit Provider Urology
DX: Z46.6 Encounter for fitting and adjustment of urinary device (principal); T83.511A Infection and inflammatory reaction due to indwelling urethral catheter, initial encounter; N39.0 Urinary tract infection, site not specified; R33.9 Retention of urine, unspecified; B95.1 Streptococcus, group B, as the cause of diseases classified elsewhere
CPT/HCPCS: 51702

== ENCOUNTER 2024-05-08 16:31 | Outpatient (REF) | payer MEDICAID, SELFPAY ==
[2024-05-08 16:40] LABS: Appearance Urine Turbid; Color Urine Other; Glucose Urine UA Negative (Negative); Leukocyte Esterase Urine Moderate (2+) (Negative); Nitrite Urine Positive (Negative); PH 6.5 (5.0-9.0); Specific Gravity - Urine 1.025 (1.005-1.025); UMIC TRIGGER UA YES; Urine Blood Large (3+) (Negative); Urine Ketones Trace mg/dL (Negative); Urine Protein 100 (2+) mg/dL (Neg-Trace)
[2024-05-08 16:51] LABS: Bacteria Urine Trace (None Seen); Hyaline Casts Urine 0-2 /LPF (0-2); RBC Urine >20 /HPF (0-2); Squamous Epithelial Cell Urine 0-2 /HPF (0-2); WBC Urine >50 /HPF (0-5)
== END 2024-05-08 16:32 | disposition home or self-care (01) ==
LOC: HO.LNP 16:31
PROVIDERS: Visit Provider Urology
DX: N31.9 Neuromuscular dysfunction of bladder, unspecified (principal); T83.511A Infection and inflammatory reaction due to indwelling urethral catheter, initial encounter; N39.0 Urinary tract infection, site not specified
CPT/HCPCS: 81001; 87086; 87147

== ENCOUNTER 2024-05-21 20:05 | Emergency (ER) | payer MEDICAID, SELFPAY ==
--- NOTE | ~2024-05-21 | CT_ITS ---
CLINICAL HISTORY: Lower abdominal discomfort, hematuria CT abdomen and pelvis without contrast Comparison: CT/ID/SR - CT ABDOMEN PELVIS WO IV CON - 01/10/24 19:17 EDT Findings: Motion artifact present, limiting evaluation of the bilateral lung bases. This examination is also degraded by artifact related to patient body habitus. Minimal atelectasis visualized at the left lung base. There is elevation of the right hemidiaphragm. There appear to be calcifications near the left hemidiaphragm posteriorly. A similar finding was present on the prior exam. The liver is enlarged. The liver contour is not well evaluated on this examination due to artifact and adjacent free fluid. Small volume ascites visualized within the abdomen. The gallbladder is not well visualized on this exam and gallbladder wall thickening can not be excluded. The spleen, pancreas, and right adrenal gland are unremarkable in appearance given the exam limitations. The left adrenal gland is not well visualized on this examination. No left adrenal mass appreciated. No radiopaque renal calculi are visualized. No hydronephrosis. No bowel obstruction, pneumoperitoneum, or pneumatosis. Moderate colonic stool burden present, most prominent at the ascending and transverse portions of the colon. Mesh material in place at the anterior abdominal wall, suggesting prior hernia repair. Irregular radiopaque densities are redemonstrated within the left flank soft tissues, possibly related to postsurgical change. Pelvic contents unremarkable. Varicose veins are identified within the pre pubic soft tissues. A Mcallister catheter is in place within the bladder lumen in the bladder is collapsed, limiting its evaluation. Nonvisualization of the appendix. No acute fracture visualized. Compression deformities are redemonstrated at the L1 and L4 vertebral bodies, unchanged in appearance as compared to the prior exam. There is associated central canal stenosis at the L1 vertebral level, also visualized on the prior exam. IMPRESSION: 1. Limited examination as described above. There is hepatomegaly with small volume ascites throughout the abdomen. Cirrhosis is not excluded on this examination. 2. Limited visualization of the gallbladder wall. Gallbladder wall thickening can not be excluded on this exam. If there is clinical concern for acute cholecystitis, recommend gallbladder ultrasound examination and/or nuclear medicine HIDA scan for further evaluation. 3. Moderate proximal to mid colonic stool burden. No bowel obstruction. This document has been electronically signed by: Venkat Beal MD on 05/21/2024 22:42:00
[2024-05-21 20:13] VITALS: BP 124/68; PULSE 58
[2024-05-21 20:18] VITALS: BP 133/54; PULSE 63; RESP 20; TEMP 37.1; O2SAT 98; BMI 47.5
--- NOTE | 2024-05-21 20:28 | ED_ITS ---
HPI - Abdominal Pain General Chief Complaint: Abdominal Pain Stated Complaint: CATHETER ISSUE, ABD PAIN, BLOOD IN PEE 1WEEK Time Seen by Provider: 05/21/24 20:27 Source: patient Mode of arrival: ambulatory Limitations: no limitations History of Present Illness ED Provider: HPI narrative: Patient's history of neurogenic bladder status post Mcallister catheter, history of anasarca liver cirrhosis secondary to MALDONADO cervical cancer and DVT on Coumadin comes here as she noticed lower abdominal discomfort and hematuria she did not take her Coumadin tonight Related Data Home Medications ?Medication ?Instructions ?Recorded ?Confirmed bupropion HCl 200 mg tablet,12 hr 200 mg PO BID depressive disorder 01/03/23 04/02/24 sustained-release hydroxyzine pamoate 25 mg capsule 25 mg PO TID PRN Anxiety 01/03/23 04/02/24 loratadine 10 mg tablet 10 mg PO DAILY 01/03/23 04/02/24 ondansetron HCl 4 mg tablet 4 mg PO BID Nausea And Vomiting 01/03/23 04/02/24 risperidone microspheres 50 mg/2 50 mg IM Q2W 01/03/23 04/02/24 mL intramuscular susp,ext release (Risperdal Consta) zolpidem 10 mg tablet 10 mg PO BEDTIME Insomnia 01/03/23 04/02/24 benztropine 0.5 mg tablet 0.5 mg PO BID PRN dystonias 07/13/23 04/02/24 nystatin 100,000 unit/gram topical 1 appl topical BID 07/13/23 04/02/24 powder furosemide 40 mg tablet 40 mg PO DAILY 08/05/23 04/02/24 citalopram 40 mg tablet 40 mg PO DAILY depressive disorder 01/11/24 04/02/24 Previous Rx's ?Medication ?Instructions ?Recorded polyethylene glycol 3350 17 17 g PO DAILY PRN constipation 07/16/23 gram/dose oral powder (Miralax) #119 grams spironolactone 25 mg tablet 25 mg PO BID@0900,1800 #120 tabs 07/16/23 midodrine 5 mg tablet 5 mg PO TID #30 tabs 08/10/23 warfarin 3 mg tablet (Jantoven) 6 mg (2 x 3 mg) PO DAILY@1800 #60 01/14/24 tabs bethanechol chloride 50 mg tablet 50 mg PO BID #60 tabs 04/03/24 nitrofurantoin 100 mg PO BID 7 days #14 caps 05/10/24 monohydrate/macrocrystals 100 mg capsule (Macrobid) Allergies Allergy/AdvReac Type Severity Reaction Status Date / Time No Known Allergies Allergy Verified 05/21/24 20:26 [No Known Allergies*] Review of Systems Review of Systems Yes all other systems are reviewed and are negative [facility] Past Medical History Medical History Anasarca Urinary retention Hepatorenal syndrome Liver cirrhosis secondary to MALDONADO Obstructive uropathy Hyponatremia Cirrhosis of liver with ascites Acute kidney insufficiency UTI (urinary tract infection) Cervical cancer Lymphedema Cardiac arrest DVT (deep venous thrombosis) Social History Social History Household Members: Family Household Members Other:: Son, daughter Housing: Apartment Do you presently have visiting nurse or other home services: Yes Alcohol intake: never Comment: DAUGHTER STAYING OVERNIGHT Patient Tobacco Use Status: Never used Tobacco e-Cigarette/Vaping Use: Never Used Advance Directives Date on File: 01/03/23 service: No Physical Exam ED Vital Signs: Vital Signs - 24 hr 05/21/24 20:18 05/21/24 22:00 05/22/24 00:31 Temperature 98.8 F 97.6 F 97.6 F Pulse Rate 63 90 85 Respiratory Rate 20 20 20 Blood Pressure 133/54 L 113/60 110/68 Pulse Oximetry 98 98 98 Oxygen Delivery Method Room Air Room Air Room Air BMI result Body Mass Index 47.5 Appearance: Alert. Oriented X3. No acute distress. Obese Eyes: PERRLA, No Nystagmus ENT: Pharynx normal. Oral Mucosa moist Neck: Normal inspection. Neck supple. CVS: Normal heart rate and rhythm. Pulses normal. Respiratory: No respiratory distress. Equal air entry bilateral, no wheezing/rales/rhonchi Abdomen: Soft and nontender. Bowel sounds are present, no mass palpable, no CVA tenderness Skin: Skin warm and dry. Normal skin color. Normal skin turgor. Extremities: No lower extremity edema. No calf tenderness Neuro: Oriented X 3. No motor deficit. No sensory deficit.No cerebellar signs , cranial nerves II-XII intact Medical Decision Making Medical Decision Making [facility] Narrative: Patient with gross hematuria on Coumadin draining well with only small amounts of clot INR was 2.[address] scan of the abdomen negative for acute patient advised to stopped Coumadin drink plenty of fluids and restart the Coumadin once bleeding stopped Differential Diagnosis Differential Diagnoses: The differential diagnosis associated with the presentation includes Hematuria/cystitis/bladder mass Lab Data [facility] Lab Attestation statement: I reviewed the patient's lab results. 05/21/24 20:52 05/21/24 20:52 Labs: Lab Results 05/21/24 05/21/24 Range/Units 20:52 21:40 WBC 9.5 (4.8-10.8) X10*3/uL RBC 4.75 (4.20-5.50) X10*6/uL Hgb 13.1 (12.0-16.0) g/dl Hct 39.7 (37.0-47.0) % MCV 83.6 (80.0-98.0) fL MCH 27.6 (27.0-33.0) pg MCHC 33.0 (31.0-35.0) g/dl RDW 14.3 (11.0-16.0) % Plt Count 227 (160-400) X10*3/uL MPV 10.2 (9.4-12.3) fL Immature Gran % (Auto) 0.2 (0.0-0.4) % Neut % (Auto) 89.8 H (45-73) % Lymph % (Auto) 5.7 L (20-40) % [place] % (Auto) 4.1 (2-11) % Eos % (Auto) 0.1 (0-4) % Baso % (Auto) 0.1 (0-2) % Lymph # (Auto) 0.5 L (1.2-4.9) X10*3/uL [place] # (Auto) 0.4 (0.1-1.2) X10*3/uL Eos # (Auto) 0.0 (0.0-0.4) X10*3/uL Baso # (Auto) 0.0 (0.0-0.2) X10*3/uL Abs Immat Gran (auto) 0.02 (0.00-0.03) X10*3/uL Absolute Neuts (auto) 8.6 H (2.0-8.3) x10*3/uL Absolute Nucleated RBC 0.000 (0.0-0.012) X10*3/uL Nucleated RBC % (auto) 0.0 (0.0-0.2) /100WBC PT 23.2 H D (10.9-12.4) SEC INR 2.0 H (0.9-1.1) Sodium 131 L (135-145) mmol/L Potassium 4.6 (3.3-5.1) mmol/L Chloride 93 L (96-108) mmol/L Carbon Dioxide 28 (22-29) mmol/L Anion Gap 15 (12-20) BUN 18 H (9-16) mg/dL Creatinine 0.92 (0.5-1.4) mg/dL Estim Creat Clear Calc 87.0 Estimated GFR > 60 Random Glucose 126 H (60-115) mg/dL Calcium 9.0 (8.4-10.2) mg/dL Total Bilirubin 0.8 (0.0-1.0) mg/dL AST 59 H (5-31) U/L ALT 41 H (0-31) U/L Alkaline Phosphatase 99 (39-117) U/L Total Protein 7.0 (6.5-8.0) g/dL Albumin 3.8 (3.5-5.0) g/dL Urine Color RED Urine Appearance Turbid Urine pH 8.0 (5.0-9.0) Ur Specific [place] 1.015 (1.005-1.025) Urine Protein 300 (3+) H (Neg-Trace) mg/dL Urine Glucose (UA) Negative (Negative) mg/dL Urine Ketones Trace (Negative) mg/dL Urine Blood Large (3+) H (Negative) Urine Nitrite Positive H (Negative) Ur Leukocyte Esterase Moderate (2+) H (Negative) Urine RBC >20 H (0-2) /HPF Urine WBC 21-50 H (0-5) /HPF Ur Squamous Epith Cells 0-2 (0-2) /HPF Urine Bacteria Trace (None Seen) Hyaline Casts 0-2 (0-2) /LPF Independent Interpretation I performed an independent interpretation of an: CT Scan Radiology Impression Discussion of test interpretation with radiology: I have reviewed the radiologist's reading. Medications Administered Discontinued Medications Generic Name Dose Route Start Last Admin Trade Name Freq PRN Reason Stop Dose Admin Sodium Chloride 1,000 mls @ 999 mls/hr 05/21/24 21:33 05/21/24 23:20 Ns IV 05/21/24 22:33 Infused .Q1H1M ONE Infusion Morphine Sulfate 4 mg 05/21/24 20:58 05/21/24 21:14 Morphine Sulfate 4 Mg/Ml Cartridge IVPUSH 05/21/24 20:59 4 mg ONCE ONE Administration Protocol Ondansetron HCl 4 mg 05/21/24 20:58 05/21/24 21:14 Ondansetron Hcl 4 Mg/2 Ml Vial IVPUSH 05/21/24 20:59 4 mg ONCE ONE Administration Discharge Plan Discharge Clinical Impression: Saad hematuria Patient Disposition: Home, Self-Care Instructions: Hematuria (ED) Additional Instructions: Hold the Coumadin for now Drink plenty of fluids Once urine is clear from blood you may start the Coumadin Follow up with your PCP in next 2- 3 days Prescriptions: No Action bethanechol chloride 50 mg tablet 50 mg PO BID Qty: 60 0RF nitrofurantoin monohyd/m-cryst [Macrobid] 100 mg capsule 100 mg PO BID 7 Days Qty: 14 0RF Rx Instructions: must administer with a meal/food zolpidem 10 mg tablet 10 mg PO BEDTIME loratadine 10 mg tablet 10 mg PO DAILY hydroxyzine pamoate 25 mg capsule 25 mg PO TID PRN (Reason: Anxiety) bupropion HCl 200 mg tablet sustained-release 12 hr 200 mg PO BID risperidone microspheres [Risperdal Consta] 50 mg/2 mL suspension,extended rel recon 50 mg IM Q2W Rx Instructions: ON FRIDAYS (Next dose) 01/13/24 ondansetron HCl 4 mg tablet 4 mg PO BID furosemide 40 mg tablet 40 mg PO DAILY midodrine 5 mg tablet 5 mg PO TID Qty: 30 0RF Rx Instructions: do not give last dose of day after 6PM or within 4 hrs of bedtime citalopram 40 mg tablet 40 mg PO DAILY warfarin [Jantoven] 3 mg Tablet 6 mg PO DAILY@1800 Qty: 60 0RF benztropine 0.5 mg tablet 0.5 mg PO BID PRN (Reason: dystonias) nystatin 100,000 unit/gram powder 1 appl topical BID spironolactone 25 mg Tablet 25 mg PO BID@0900,1800 Qty: 120 0RF Protocol: Hold for SBP< HOLD for SBP < : 90 polyethylene glycol 3350 [Miralax] 17 gram/dose powder 17 g PO DAILY PRN (Reason: constipation) Qty: 119 0RF Interventions: ED Discharge Assessment Last Done: 05/22/24 00:31 Discharge Date/Time: 05/22/24 00:32 Print Language: Malay
[2024-05-21 20:55] LABS: MANUAL DIFF FLAG NO
[2024-05-21 20:56] LABS: Basophils Percent Auto 0.1 % (0-2); Eosinophils Percent Auto 0.1 % (0-4); Hematocrit 39.7 % (37.0-47.0); Hemoglobin 13.1 g/dl (12.0-16.0); Imm Gran Abs Auto 0.02 X10*3/uL (0.00-0.03); Imm Gran Pct Auto 0.2 % (0.0-0.4); Lymphocytes Absolute Auto 0.5 X10*3/uL (1.2-4.9); Lymphocytes Percent Auto 5.7 % (20-40); Mean Corpuscular Hemoglobin 27.6 pg (27.0-33.0); Mean Corpuscular Volume 83.6 fL (80.0-98.0); Mean Platelet Volume 10.2 fL (9.4-12.3); Monocytes Absolute Auto 0.4 X10*3/uL (0.1-1.2); Monocytes Percent Auto 4.1 % (2-11); Neutrophils Absolute Auto 8.6 x10*3/uL (2.0-8.3); Neutrophils Percent Auto 89.8 % (45-73); Platelet Count 227 X10*3/uL (160-400); Red Blood Count 4.75 X10*6/uL (4.20-5.50); Red Cell Distribution Width 14.3 % (11.0-16.0); White Blood Count 9.5 X10*3/uL (4.8-10.8)
[2024-05-21 21:01] LABS: Prothrombin Time 23.2 SEC (10.9-12.4)
[2024-05-21 21:10] LABS: Alanine Aminotransferase 41 U/L (0-31); Albumin Level 3.8 g/dL (3.5-5.0); Alkaline Phosphatase 99 U/L (39-117); Anion Gap 15 (12-20); Aspartate Amino Transferase 59 U/L (5-31); Bilirubin Total 0.8 mg/dL (0.0-1.0); Blood Urea Nitrogen 18 mg/dL (9-16); Carbon Dioxide 28 mmol/L (22-29); Chloride 93 mmol/L (96-108); Estimated Glomerular Filt Rate > 60; Glucose Random 126 mg/dL (60-115); Potassium 4.6 mmol/L (3.3-5.1); Sodium 131 mmol/L (135-145)
[2024-05-21] MEDS: ondansetron HCL 4 MG/2 ML VIAL IVPUSH (21:14)
[2024-05-21] MEDS: Morphine Sulfate 4 MG/ML CARTRIDGE IVPUSH (21:14)
[2024-05-21 21:48] LABS: Appearance Urine Turbid; Color Urine RED; Glucose Urine UA Negative (Negative); Leukocyte Esterase Urine Moderate (2+) (Negative); Nitrite Urine Positive (Negative); Specific Gravity - Urine 1.015 (1.005-1.025); UMIC TRIGGER UACC YES; Urine Blood Large (3+) (Negative); Urine Ketones Trace mg/dL (Negative); Urine Protein 300 (3+) mg/dL (Neg-Trace)
[2024-05-21 21:56] LABS: Bacteria Urine Trace (None Seen); Hyaline Casts Urine 0-2 /LPF (0-2); RBC Urine >20 /HPF (0-2); Squamous Epithelial Cell Urine 0-2 /HPF (0-2); UACC Culture Trigger YES; WBC Urine 21-50 /HPF (0-5)
[2024-05-21 22:00] VITALS: BP 113/60; PULSE 90; RESP 20; TEMP 36.4; O2SAT 98
[2024-05-21] MEDS: 0.9 % Sodium Chloride 1,000 ML 999 ML IV (22:01)
[2024-05-22 00:31] VITALS: BP 110/68; PULSE 85; RESP 20; TEMP 36.4; O2SAT 98
== END 2024-05-22 00:32 | disposition home or self-care (01) ==
PROVIDERS: Emergency Provider Internal Medicine; PCP Pediatrics
DX: R31.9 Hematuria, unspecified (principal); R10.2 Pelvic and perineal pain; R11.2 Nausea with vomiting, unspecified; Z79.899 Other long term (current) drug therapy
CPT/HCPCS: 36415; 74176; 80053; 81001; 85025; 85610; 87086; 87088; 87186; 96361; 96374; 96375; 99284; 99285; J2270; J2405

== ENCOUNTER → 2024-05-21 21:34 | Outpatient (BNV) | payer MEDICAID, SELFPAY | PROVIDERS: Emergency Provider Internal Medicine; PCP Pediatrics; Visit Provider Radiology Diagnostic Radiology | DX: R10.9 Unspecified abdominal pain (principal) | CPT/HCPCS: 74176 ==

== ENCOUNTER → 2024-06-08 12:56 | Outpatient (BNVA) | payer MEDICAID, SELFPAY | PROVIDERS: PCP Pediatrics; Visit Provider Urology | DX: N31.9 Neuromuscular dysfunction of bladder, unspecified (principal); Z46.6 Encounter for fitting and adjustment of urinary device; Z93.50 Unspecified cystostomy status | CPT/HCPCS: 51705 ==

== ENCOUNTER 2024-06-12 09:25 | Outpatient (AMB) | payer MEDICAID, SELFPAY ==
--- NOTE | 2024-06-12 09:28 | A.OFFVIS_ITS ---
Intake Visit Reasons: cath change follow up Intake Note: Patient is present for CATH CHANGE F/U Urology Medication:NONE Antibiotic Allergy:NONE Blood Thinner:WARFARIN Photography Coordinator Required: No Allergies No Known Allergies [No Known Allergies*] Allergy (Verified 06/12/24 09:28) HPI Comments Details: 06/12/24--Miriam is a 53-year-old Croatian-speaking female here due to urinary retention. Her CAPACITOR TESTER is present and interprets for her. She has a past medical history of anasarca, liver cirrhosis secondary to MALDONADO, urinary tract infection, cervical cancer, cardiac arrest, and DVT. She presents to the office today for follow-up of her urinary retention. Discussed SP tube placement. CoMorbidity - Obesity. on coumadin. Urinary retention -- cont catheter changes q 4 weeks, vesicare for bladder spasms, d/c bethanochol. 04/02/23--Miriam is a 53-year-old Croatian-speaking female here due to urinary retention. Her CAPACITOR TESTER is present and interprets for her. She has a past medical history of anasarca, liver cirrhosis secondary to MALDONADO, urinary tract infection, cervical cancer, cardiac arrest, and DVT. She presents to the office today for follow-up of her urinary retention. Mcallister catheter changed. 16 fr catheter. CoMorbidity - Obesity. on coumadin. Reviewed renal US 01/11/24--Normal-appearing kidneys. No obvious cause such as hydronephrosis 02/02/24--Miriam is a 53-year-old Croatian-speaking female patient of was accompanied by her [id number] at today's office visit. She has a past medical history of anasarca, urinary retention, liver cirrhosis secondary to MALDONADO, urinary tract infection, cervical cancer, cardiac arrest, and DVT. She presents to the office today for follow-up of her urinary retention. In discussion with the patient and her [id number] at today's office visit she discusses ongoing issues with urinary retention/incomplete bladder emptying. In review of patient's chart patient was hospitalized on 2 different admissions at which time urology was consulted for urinary retention. Patient reports compliance with Flomax as prescribed. She reports noting over the last 2-3 day she has noted foul-smelling urine. In office voiding trial was performed and patient was able to independently void. We discussed at length potential causes of urinary retention/incomplete bladder emptying as well as further treatment options. In review of patient's chart it appears retroperitoneal ultrasound was ordered and performed. These results were reviewed with the patient today. Bilateral kidneys are normal in size, contour, and echogenicity. No renal calculi, lesions, and or hydronephrosis noted. The bladder was well distended and normal bilateral ureteral jets are demonstrated. A Mcallister was present in the bladder. She reports noting over the last 6-8 months she has had issues with emptying her bladder. She otherwise denies flank pain, fever, and or chills. [facility] Medical History Anasarca Urinary retention Hepatorenal syndrome Liver cirrhosis secondary to MALDONADO Obstructive uropathy Hyponatremia Cirrhosis of liver with ascites Acute kidney insufficiency UTI (urinary tract infection) Cervical cancer Lymphedema Cardiac arrest DVT (deep venous thrombosis) Social History Household Members: Family Household Members Other:: Son, daughter Housing: Apartment Do you presently have visiting nurse or other home services: Yes Alcohol intake: never Comment: DAUGHTER STAYING OVERNIGHT Patient Tobacco Use Status: Never used Tobacco e-Cigarette/Vaping Use: Never Used Advance Directives Date on File: 01/03/23 service: No Review of Systems Const All systems reviewed & are unremarkable except as noted in HPI and below Reports no additional complaints Eyes Reports no additional complaints ENT Reports no additional complaints Card Reports no additional complaints Resp Reports no additional complaints GI Reports no additional complaints Reports as per HPI Musc Reports no additional complaints Skin/Breast Reports system reviewed and no additional complaints, except as documented Neuro Reports no additional complaints Psych Reports no additional complaints Endo Reports no additional complaints Rebel/Lymph Reports no additional complaints Aller/Immun Reports no additional complaints Results Reviewed Results Reviewed: Date of Service: 05/21/24 CLINICAL HISTORY: Lower abdominal discomfort, hematuria CT abdomen and pelvis without contrast Comparison: CT/TX/SR - CT ABDOMEN PELVIS WO IV CON - 01/10/24 19:17 EDT Findings: Motion artifact present, limiting evaluation of the bilateral lung bases. This examination is also degraded by artifact related to patient body habitus. Minimal atelectasis visualized at the left lung base. There is elevation of the right hemidiaphragm. There appear to be calcifications near the left hemidiaphragm posteriorly. A similar finding was present on the prior exam. The liver is enlarged. The liver contour is not well evaluated on this examination due to artifact and adjacent free fluid. Small volume ascites visualized within the abdomen. The gallbladder is not well visualized on this exam and gallbladder wall thickening can not be excluded. The spleen, pancreas, and right adrenal gland are unremarkable in appearance given the exam limitations. The left adrenal gland is not well visualized on this examination. No left adrenal mass appreciated. No radiopaque renal calculi are visualized. No hydronephrosis. No bowel obstruction, pneumoperitoneum, or pneumatosis. Moderate colonic stool burden present, most prominent at the ascending and transverse portions of the colon. Mesh material in place at the anterior abdominal wall, suggesting prior hernia repair. Irregular radiopaque densities are redemonstrated within the left flank soft tissues, possibly related to postsurgical change. Pelvic contents unremarkable. Varicose veins are identified within the pre pubic soft tissues. A Mcallister catheter is in place within the bladder lumen in the bladder is collapsed, limiting its evaluation. Nonvisualization of the appendix. No acute fracture visualized. Compression deformities are redemonstrated at the L1 and L4 vertebral bodies, unchanged in appearance as compared to the prior exam. There is associated central canal stenosis at the L1 vertebral level, also visualized on the prior exam. IMPRESSION: 1. Limited examination as described above. There is hepatomegaly with small volume ascites throughout the abdomen. Cirrhosis is not excluded on this examination. 2. Limited visualization of the gallbladder wall. Gallbladder wall thickening can not be excluded on this exam. If there is clinical concern for acute cholecystitis, recommend gallbladder ultrasound examination and/or nuclear medicine HIDA scan for further evaluation. 3. Moderate proximal to mid colonic stool burden. No bowel obstruction. Date of Service: 01/11/24 EXAMINATION: US RETROPERITONEAL COMPLETE (RENAL) FINDINGS: RIGHT KIDNEY: 9.7 x 4.2 x 5.6 cm (SAG x AP x TRV). The kidney is normal in size, contour, and echogenicity. Renal cortical thickness is normal. No calculi or focal parenchymal lesions. No hydronephrosis. LEFT KIDNEY: 10.7 x 6.0 x 3.4 cm (SAG x AP x TRV). The kidney is normal in size, contour, and echogenicity. Renal cortical thickness is normal. No calculi or focal parenchymal lesions. No hydronephrosis. The left-sided retroperitoneal collection posterior to the left kidney is not identified on this study. BLADDER: Well distended and normal. Bilateral ureteral jets are not demonstrated. Prevoid bladder volume is 972 mL. A Mcallister catheter is present in the bladder. ADDITIONAL FINDINGS: Ascites is seen in all 4 quadrants IMPRESSION: 1. Normal-appearing kidneys. No obvious cause such as hydronephrosis is seen to account for deteriorating renal function. 2. Ascites. 3. The left-sided retroperitoneal collection is not identified on this study. Assessment & Plan Assessment & Plan (1) Neurogenic bladder: Code(s): N31.9 - Neuromuscular dysfunction of bladder, unspecified Category: Medical (2) Liver cirrhosis: Code(s): K74.60 - Unspecified cirrhosis of liver Category: Medical (3) Morbid obesity: Code(s): E66.01 - Morbid (severe) obesity due to excess calories Category: Medical Plan vesicare 10 mg daily Medications: New solifenacin (Vesicare) 10 mg PO DAILY 90 tabs 3RF Discontinued bethanechol chloride Discontinued Reason: Doctor's Order 50 mg PO BID 60 tabs 0RF N39.0 - Urinary tract infection, site not specified Coding Level of Care Code Est Pt Level 4 (90097) Diagnoses Neurogenic bladder N31.9 Liver cirrhosis K74.60 Morbid obesity E66.01
== END 2024-06-12 10:59 | disposition home or self-care (01) ==
LOC: HO.HUSH 09:25
PROVIDERS: PCP Pediatrics; Visit Provider Urology
DX: N31.9 Neuromuscular dysfunction of bladder, unspecified (principal); K74.60 Unspecified cirrhosis of liver; E66.01 Morbid (severe) obesity due to excess calories
CPT/HCPCS: 99214

== ENCOUNTER → 2024-06-12 09:25 | Outpatient (BNVA) | payer MEDICAID, SELFPAY | PROVIDERS: PCP Pediatrics; Visit Provider Urology | DX: N31.9 Neuromuscular dysfunction of bladder, unspecified (principal); R33.9 Retention of urine, unspecified; K74.60 Unspecified cirrhosis of liver; E66.01 Morbid (severe) obesity due to excess calories; N39.0 Urinary tract infection, site not specified; Z96.0 Presence of urogenital implants | CPT/HCPCS: 99212 ==

== ENCOUNTER 2024-06-14 15:44 | Outpatient (REF) | payer MEDICAID, SELFPAY ==
[2024-06-14 18:34] LABS: Anion Gap 14 (12-20); Blood Urea Nitrogen 13 mg/dL (9-16); Calcium 9.2 mg/dL (8.4-10.2); Carbon Dioxide 29 mmol/L (22-29); Chloride 99 mmol/L (96-108); Estimated Glomerular Filt Rate > 60; Glucose Random 67 mg/dL (60-115); Potassium 3.4 mmol/L (3.3-5.1); Sodium 139 mmol/L (135-145)
[2024-06-14 18:35] LABS: INTERNATIONAL NORM RATIO 1.7 (0.9-1.1); Prothrombin Time 19.6 SEC (10.9-12.4)
== END 2024-06-14 15:45 | disposition home or self-care (01) ==
LOC: HO.CHCLDS 15:44
PROVIDERS: Visit Provider Pediatrics
DX: N30.40 Irradiation cystitis without hematuria (principal); I82.509 Chronic embolism and thrombosis of unspecified deep veins of unspecified lower extremity
CPT/HCPCS: 36415; 80048; 85610

== ENCOUNTER → 2024-07-05 14:05 | Outpatient (BNVA) | payer MEDICAID, SELFPAY | PROVIDERS: PCP Pediatrics; Visit Provider Nurse Practitioner Family | DX: N31.9 Neuromuscular dysfunction of bladder, unspecified (principal); N39.0 Urinary tract infection, site not specified; T83.511A Infection and inflammatory reaction due to indwelling urethral catheter, initial encounter; X58.XXXA Exposure to other specified factors, initial encounter; Z46.6 Encounter for fitting and adjustment of urinary device; Z96.0 Presence of urogenital implants | CPT/HCPCS: 51702 ==

== ENCOUNTER → 2024-07-30 11:16 | Outpatient (BNVA) | payer MEDICAID, SELFPAY | PROVIDERS: PCP Pediatrics | DX: Z46.6 Encounter for fitting and adjustment of urinary device (principal); N31.9 Neuromuscular dysfunction of bladder, unspecified | CPT/HCPCS: 51702 ==

== ENCOUNTER 2024-08-23 08:57 | Outpatient (REF) | payer MEDICAID, SELFPAY ==
--- NOTE | ~2024-08-23 | US_ITS ---
CLINICAL HISTORY: LIVER CIRRHOSIS SECONDARY TO MALDONADO US abdomen limited with color Doppler Comparison: CT/SR - CT ABDOMEN PELVIS WO IV CON - 05/21/24 21:41 EST US/IL/SR - US ABDOMEN LIMITED - 01/13/24 09:05 EDT Findings: Visualized pancreas is normal. Tail obscured by bowel gas. Liver is normal in size coarsened echotexture. Right lobe length 16.4 cm. No focal hepatic masses. Common duct 2.7 mm diameter. Gallbladder is physiologically distended. No gallstones, sludge or wall abnormalities. No gallbladder wall thickening. No pericholecystic fluid. No sonographic Almodovar sign. Main portal vein antegrade. Right kidney measures, 9.9 cm in length. Normal cortical width and echotexture. No calculus or renal masses. Mild caliectasis. Impression: 1. Normal-sized liver coarsened hepatic echotexture reflecting hepatic steatosis or mild diffuse hepatocellular disease. No focal hepatic lesions. 2. Normal gallbladder 3. Mild caliectasis right kidney. This document has been electronically signed by: Anurag Farmer MD on 08/23/2024 15:19:48
--- OUTSIDE RECORDS SUMMARY | 2024-08-23 09:21 | XMS_ITS | Encounter Summary ---
Author Organization [facility] Address [address] [place] [address] Care Team Providers Care Marine Cargo Surveyor Name Role Phone Kristin Todd Primary Care Provider [phone] Encounter Details Date Type Department Care Team ([facility] st Contact Info) Description 01/19/2023 Orders Only [facility] Interventional Radiology [address] [place] [id number] Rosendo Church MD [address] [place] [address] [phone] Social History Tobacco Use Types Packs/Day Years Used Date Smoking Tobacco: Former Cigarettes Smokeless Tobacco: Never Comments Unknown Sex and Gender Information Value Date Recorded Sex Assigned at Female 03/30/2023 8:58 AM EST Legal Sex Female 4:16 PM EDT Gender Identity Not on file Sexual Orientation Not on file documented as of this encounter Plan of Treatment Not on file documented as of this encounter Visit Diagnoses Not on filedocumented in this encounter Care Teams Marine Cargo Surveyor Relationship Specialty Start Date End Date Kristin Todd [address] [place] [address] PCP - General Internal Medicine 01/21/23 documented as of this encounter
== END 2024-08-23 08:58 | disposition home or self-care (01) ==
LOC: HO.US 08:57
PROVIDERS: PCP Pediatrics; Visit Provider Internal Medicine Transplant Hepatology
DX: K75.81 Nonalcoholic steatohepatitis (NASH) (principal); K74.60 Unspecified cirrhosis of liver
CPT/HCPCS: 76705

== ENCOUNTER → 2024-08-23 09:01 | Outpatient (BNV) | payer MEDICAID, SELFPAY | PROVIDERS: PCP Pediatrics; Visit Provider Radiology Diagnostic Radiology | DX: K76.0 Fatty (change of) liver, not elsewhere classified (principal) | CPT/HCPCS: 76705 ==

== ENCOUNTER 2024-08-27 11:46 | Outpatient (REF) | payer MEDICAID, SELFPAY | END 2024-08-27 11:47 | disposition home or self-care (01) | LOC: HO.LAB 11:46 | PROVIDERS: PCP Pediatrics; Visit Provider Nurse Practitioner Family | DX: N31.9 Neuromuscular dysfunction of bladder, unspecified (principal); T83.511A Infection and inflammatory reaction due to indwelling urethral catheter, initial encounter; N39.0 Urinary tract infection, site not specified | CPT/HCPCS: 51702; 81003; 87086; 87088; 87186 ==

== ENCOUNTER 2024-08-27 11:46 | Outpatient (AMB) | payer MEDICAID, SELFPAY ==
--- NOTE | 2024-08-27 11:51 | AM.OFFVISNUR ---
Intake Visit Reasons: 4w cath change Allergies No Known Allergies [No Known Allergies*] Allergy (Verified 06/12/24 09:28) Office Procedures Bladder/Catheter Procedure Details: 16 Fr Mcallister catheter with 10ml and flip valve removed. Patient tolerated well. New 16Fr Mcallister catheter with 10ml and flip valve inserted. Patient tolerated well. Patient to schedule cath change with nursing in 4 weeks. During visit patient complained of urinary leakage from around catheter despite being on vesicare for spasms. Reviewed with Nuria DANIELS: send patient myrbetriq 25mg daily 30 days 1RF. Script sent for patient. Patient aware and agreeable. Will send urine for culture as patient also reporting foul smelling urine. [id number] Temporary Bladder Catheter Procedure code (CPT) selection complete Assessment & Plan Assessment & Plan Orders: Orders AMB Bladder/Catheter Procedure Today Suzie Byers MD N31.9 - Neuromuscular dysfunction of bladder, unspecified Medications: New mirabegron ER (Myrbetriq) 25 mg PO DAILY 30 days 30 tabs 1RF FRANCES Diehl Coding CPT Codes Bladder/Catheter Procedure - CPT: 33441-[id number] Temporary Bladder Catheter ([id number])
--- OUTSIDE RECORDS SUMMARY | 2024-08-27 13:01 | XMS_ITS | Encounter Summary ---
Author Organization [facility] Address [address] [place] [address] Care Team Providers Care Home Fire Alarm Installer Name Role Phone Kristin Todd Primary Care Provider [phone] Encounter Details Date Type Department Care Team ([facility] st Contact Info) Description 01/19/2023 Orders Only [facility] Interventional Radiology [address] [place] [phone] Rosendo Church MD [address] [place] [address] [phone] Social History Tobacco Use Types Packs/Day Years [...] on filedocumented in this encounter Care Teams Home Fire Alarm Installer Relationship Specialty Start Date End Date Kristin Todd [address] [place] [address] PCP - General Internal Medicine 01/21/23 documented as of this encounter
== END 2024-08-27 12:20 | disposition home or self-care (01) ==
LOC: HO.HUSH 11:47
PROVIDERS: PCP Pediatrics; Visit Provider Nurse Practitioner Family
DX: N31.9 Neuromuscular dysfunction of bladder, unspecified (principal); T83.511A Infection and inflammatory reaction due to indwelling urethral catheter, initial encounter; N39.0 Urinary tract infection, site not specified

== ENCOUNTER → 2024-09-27 12:44 | Outpatient (BNVA) | payer MEDICAID, SELFPAY | PROVIDERS: PCP Pediatrics; Visit Provider Nurse Practitioner Family | DX: T83.511A Infection and inflammatory reaction due to indwelling urethral catheter, initial encounter (principal); N39.0 Urinary tract infection, site not specified | CPT/HCPCS: 51702 ==

== ENCOUNTER 2024-10-04 11:42 | Outpatient (REF) | payer MEDICAID, SELFPAY ==
--- OUTSIDE RECORDS SUMMARY | 2024-10-04 12:17 | XMS_ITS | Clinical Summary ---
Author Organization [facility] Address [address] [address] Phone Care Team Providers Care Trackwalker Name Role Phone Kristin Todd MD Primary Care Provider Allergies No known active allergies Medications zolpidem (AMBIEN) 10 MG tablet TOME KEESHA TABLETA TODOS LOS D AL ACOSTARSE CUANDO SEA NECESARIO PARA DORMIR 02/16/20 23 Active warfarin (COUMADIN) 5 MG tablet TAKE 1-2 TABLETS BY MOUTH DAILY DIRECTED PER NURSE AFTER INR CHECK 12/11/19 23 Active RisperDAL CONSTA 50 MG Suspension Reconstituted ER INJECT 1 SYRINGE INTRAMUSCULARLY ONCE EVERY TWO WEEKS 01/13/20 23 Active ondansetron (ZOFRAN) 4 MG tablet TOME KEESHA TABLETA CADA OCHO HORAS CUANDO SEA NECESARIO PARA LAS N USEAS Y V MITOS 01/27/20 23 Active loratadine (CLARITIN) 10 MG tablet TOME KEESHA TABLETA TODOS LOS D 01/18/20 23 Active midodrine (PROAMATINE) 10 MG tablet TOME KEESHA TABLETA DOT VECES AL D A 01/29/20 23 Active hydrOXYzine (VISTARIL) 25 MG capsule TOME KEESHA C PSULA DOT VECES AL D A CUANDO SEA NECESARIO 02/04/20 23 Active furosemide (LASIX) 40 MG tablet TOME KEESHA TABLETA TODOS LOS D EN LA MA ROX 01/11/20 23 Active citalopram (CeleXA) 40 MG tablet TAKE 1 TABLET BY MOUTH IN THE MORNING EACH DAY 02/05/20 23 Active buPROPion SR (WELLBUTRIN SR) 200 MG 12 hr tablet TAKE 1 TABLET BY MOUTH TWICE A DAY FOR MOOD 02/04/20 23 Active benztropine (COGENTIN) 0.5 MG tablet TAKE 1 TABLET BY MOUTH TWICE A DAY NEEDED FOR SIDE EFFECTS, NEEDED ONLY 01/14/20 Active Active Problems Problem Noted Date Diagnosed Date Acute kidney failure 10/20/2023 Edema 10/20/2023 Amnesia 02/23/2023 02/23/2023 Anxiety disorder 02/23/2023 02/23/2023 Atypical ductal hyperplasia of breast 02/23/2023 02/23/2023 Blood in urine 02/23/2023 02/23/2023 Deep venous thrombosis 02/23/2023 Gastroesophageal reflux disease 02/23/2023 02/23/2023 Dyslipidemia 02/23/2023 02/23/2023 Depressive disorder 02/23/2023 02/23/2023 History of malignant neoplasm of cervix 02/24/2002/23/2023 Overview (02/23/2023): Radiation and chemo- Lymphedema 02/23/2023 02/23/2023 Severe obesity 02/23/2023 02/23/2023 Schizophrenia 02/23/2023 02/23/2023 Main spoken language Swiss 02/23/2023 Type 2 diabetes mellitus 02/23/2023 023 Mantoux: positive 03/13/2012 02/23/2023 Overview (02/23/2023): 15mm. Pt did not keep sched appt. She rescheduled and did not keep the 2nd appt. Letter sent to the referring source. Immunizations Immunization Administration Dates Next Due Hepatitis B 01/20/2023 Influenza, Quadrivalent, Pre servative Free 12/23/2022 Influenza, Unspecified 01/22/2021,2020,12/21/2018,01/19,01/27/2017,12/23/2015,01/15/2015 ,12/04/2013 Pneumococcal Polysaccharide 03/18/2015 Td, Unspecified 01/27/2017 Family History Relation Status Comments Father Mother Social History Tobacco Use Types Packs/Day Years Used Date Smoking Tobacco: Never Smokeless Tobacco: Never Tobacco Cessation:Counseling Given: Not Answered Alcohol Use Standard Drinks/Week Comments Never 0 (1 standard drink = 0.6 oz pur e alcohol) Comments Unknown Sex and Gender Information Value Date Recorded Sex Assigned at Not on file Legal Sex Female 4:41 PM EST Gender Identity Not on file Sexual Orientation Not on file Last Filed Vital Signs Vital Sign Reading Time Taken Comments Blood Pressure 119/60 10/20/2023 2:20 PM EDT Pulse 64 10/20/2023 2:20 PM EDT Temperature - - Respiratory Rate - - Oxygen Saturation 98% 10/20/2023 2:20 PM EDT Inhaled Oxygen Concentration - - Weight 102 kg (225 lb 9.6 oz) 10/20/2023 2:20 PM EDT Height - - Body Mass Index - - Plan of Treatment Health Maintenance Due Date Last Done Comments Breast Cancer Screening 1971 Hepatitis B Vaccine (1 of 3 - 19+ 3-dose series) 10/01/1990 04/07/2023, 01/20/2023 Pneumococcal Vaccine: 50+ Ye ars (2 of 2 - PCV) 03/18/2016 03/18/2015 Diabetes: Ophthalmology Exam 04/27/2020 Diabetes: Pedal Pulse Checked 04/27/2020 Diabetes: Sensory Foot Exam 04/27/2020 Diabetes: Visual Foot Exam 04/27/2020 Colorectal Cancer Screening: Annual FOBT 10/01/2020 Colorectal Cancer Screening: Colonoscopy 10/01/2020 Colorectal Cancer Screening: Sigmoidoscopy 10/01/2020 Diabetes: Hemoglobin A1C 10/27/2023 024, 01/18/2023, 12/23/2022 Influenza Vaccine (#1) 2024 3, 01/22/2021, 04/28/2020, Additional history exists Pneumococcal Vaccine: Peds ( 0 to 5 Years) and At-Risk Patients (6 to 49 Years) Discontinued 03/18/2015 Insurance Medicaid [place] Medicaid [place] Care Teams Trackwalker Relationship Specialty Start Date End Date Kristin Todd MD [address] PCP - General Internal Medicine 02/23/23
--- OUTSIDE RECORDS SUMMARY | 2024-10-04 12:17 | XMS_ITS | Encounter Summary ---
Author Organization [facility] Address [address] [place] [address] Care Team Providers Care Hand Developer Name Role Phone Kristin Todd Primary Care Provider Encounter Details Date Type Department Care Team ([facility] Contact Info) Description 01/19/2023 Orders Only [facility] Interventional Radiology [address] [place] [address] [phone] Rosendo Church MD [address] [place] [address] [phone] Social History Tobacco Use Types Packs/Day Years [...] on filedocumented in this encounter Care Teams Hand Developer Relationship Specialty Start Date End Date Kristin Todd [address] [place] [phone] PCP - General Internal Medicine 01/21/23 documented as of this encounter
--- OUTSIDE RECORDS SUMMARY | 2024-10-04 12:17 | XMS_ITS | Encounter Summary ---
Author Organization [employer] Address [address] [facility] 7 [place] [address] Care Team Providers Care Sports Editor Name Role Phone Kristin Todd MD Primary Care Provider [phone] Reason for Visit * Reason Onset Date Comments Referral 02/16/2024 Encounter Details Date Type Department Care Team ([facility] st Contact Info) Description 02/16/2024 Telephone [facility] MEDICINE [address] [place], [place] [phone] Kristin Todd MD [address] [place] [address] Referral Social History Tobacco Use Types Packs/Day Years Used Date Smoking Tobacco: Never Passive Smoke Exposure: Never Smokeless Tobacco: Never Depression Answer Date Recorded Patient Health Questionnaire-9 Score 5 10/20/2023 Patient Health Questionnaire-9 Score 5 10/20/2023 Last PHQ-9: Questionnaire Data Not on file 0 10/20/2023 Housing Stability Answer Date Recorded What is your housing situation today? I have brian verduzco 06/02/[address] you li ve. Do you have problems with any of the following? Pests such as bugs, ants, or mice 06/02/2023 Food Insecurity Answer Date Recorded Within the past 12 months, y ou worried that your food would run out before you got money to buy more: Never True 01/10/2023 Within the past 12 months,th e food you bought just didn't last and you didn't have enough money to get more: Never True Transportation Answer Date Recorded In the past 12 months, has l ack of transportation kept you from medical appts, meetings, work or from getting things needed for daily living? No 01/10/2023 Utilities Answer Date Recorded In the past 12 months, has t he electric, gas, oil or water company threatened to shut off services in your home? No 01/10/2023 Depression Answer Date Recorded Patient Health Questionnaire-2 Score 2 10/20/2023 Comments Unknown Sex and Gender Information Value Date Recorded Sex Assigned at Female 01/25/2022 10:20 AM EDT Legal Sex Female 10:20 AM EDT Gender Identity Female 01/25/2022 10:20 AM EDT Sexual Orientation Straight 01/25/2022 10 :20 AM EDT documented as of this encounter Miscellaneous Notes * Telephone Encounter - Todd Chowdary - 02/16/2024 10:43 AM EST Tc from Efren with [facility] calling to inform they won't be able to complete referral for TMJ, she would need to be referred else where. They advised to refer pt to [facility]. If any questions you can contact Efren at [phone]. documented in this encounter Plan of Treatment Not on file documented as of this encounter Visit Diagnoses Not on filedocumented in this encounter Additional Health Concerns Assessment Noted Time PHQ-9 Depression Total Score: 5 10/20/19 24 11:56 AM EDT documented as of this encounter Care Teams Sports Editor Relationship Specialty Start Date End Date Kristin Todd MD [address] [place] [phone] PCP - General Family Medicine 03/28/18 aFbby Molina 04/01/23 documented as of this encounter
[2024-10-04 15:53] LABS: MANUAL DIFF FLAG NO
[2024-10-04 16:13] LABS: Alanine Aminotransferase 13 U/L (0-31); Albumin Level 4.6 g/dL (3.5-5.0); Alkaline Phosphatase 107 U/L (39-117); Anion Gap 13 (12-20); Aspartate Amino Transferase 22 U/L (5-31); Blood Urea Nitrogen 11 mg/dL (9-16); Calcium 9.2 mg/dL (8.4-10.2); Carbon Dioxide 29 mmol/L (22-29); Chloride 99 mmol/L (96-108); Estimated Glomerular Filt Rate 57; Iron 66 mcg/dL (30-160); Percent Iron Saturation 19 % (15-50); Potassium 4.1 mmol/L (3.3-5.1); Sodium 137 mmol/L (135-145); Total Iron Binding Capacity 345 mcg/dL (228-428); Total Protein 7.7 g/dL (6.5-8.0); Unsaturated Iron Binding 279 ug/dL
[2024-10-04 16:26] LABS: Hematocrit 39.2 % (37.0-47.0); Hemoglobin 12.6 g/dl (12.0-16.0); Imm Gran Abs Auto 0.01 X10*3/uL (0.00-0.03); Imm Gran Pct Auto 0.2 % (0.0-0.4); Lymphocytes Absolute Auto 1.0 X10*3/uL (1.2-4.9); Mean Corpuscular HGB Conc 32.1 g/dl (31.0-35.0); Mean Corpuscular Hemoglobin 26.9 pg (27.0-33.0); Mean Corpuscular Volume 83.6 fL (80.0-98.0); NRBC Abs Auto 0.000 X10*3/uL (0.0-0.012); NRBC Pct Auto 0.0 /100WBC (0.0-0.2); Platelet Count 309 X10*3/uL (160-400); Red Blood Count 4.69 X10*6/uL (4.20-5.50); White Blood Count 4.4 X10*3/uL (4.8-10.8)
[2024-10-04 16:46] LABS: Folate 9.8 ng/mL (> or = 4.0); Vitamin B12 301 pg/mL (200-900)
== END 2024-10-04 11:43 | disposition home or self-care (01) ==
LOC: HO.CHCLDS 11:42
PROVIDERS: Visit Provider Pediatrics
DX: R74.01 Elevation of levels of liver transaminase levels (principal); N30.40 Irradiation cystitis without hematuria; I89.0 Lymphedema, not elsewhere classified; Z12.31 Encounter for screening mammogram for malignant neoplasm of breast
CPT/HCPCS: 36415; 80048; 80076; 82607; 82746; 83540; 85025; 85652

== ENCOUNTER 2024-10-11 14:09 | Outpatient (AMB) | payer MEDICAID, SELFPAY ==
--- NOTE | 2024-10-11 14:18 | A.OFFVIS_ITS ---
Intake Visit Reasons: 4m follow up Intake Note: Patient presents today for follow up on: neurogenic bladder and SPTube Urology Medication: Solifenacin Antibiotic Allergy:NONE Blood Thinner:WARFARIN Office Nurse Practitioner Required: Yes Accompanied by: Unknown Allergies No Known Allergies (No Known Allergies*) Allergy (Verified 10/12/24 13:03) Medication List - Last Reconciled 10/12/24 by DYLAN Diehl benztropine 0.5 mg PO BID PRN bupropion HCl SR 200 mg PO BID citalopram 40 mg PO DAILY furosemide 40 mg PO DAILY hydroxyzine pamoate 25 mg PO TID PRN loratadine 10 mg PO DAILY midodrine 5 mg PO TID nystatin 1 appl topical BID ondansetron HCl 4 mg PO BID polyethylene glycol 3350 (Miralax) 17 grams PO DAILY PRN risperidone microspheres ER (Risperdal Consta) 50 mg IM Q2W solifenacin (Vesicare) 10 mg PO DAILY spironolactone 25 mg See Protocol PO BID@0900,1800 warfarin (Jantoven) 6 mg (2 x 3 mg) PO DAILY@1800 zolpidem 10 mg PO BEDTIME HPI Comments Details: Emilee is a 54-year-old Chinese-speaking female patient of Dr. Petty was accompanied by her [id number] at today's office visit. She has a past medical history of anasarca, liver cirrhosis secondary to MALDONADO, obesity, urinary tract infection, cervical cancer, cardiac arrest, and DVT. She presents to the office today for follow-up of her urinary retention. In discussion with the patient today she reports to be doing and feeling well. She does report noting intermittent episodes of hematuria. She continues with every 4 week catheter changes. She reports she has given suprapubic tube placement thought and would like to proceed. When asked she reports compliance with VESIcare as prescribed. Previous workup has included a renal ultrasound 01/18 noting normal-appearing kidneys. No obvious cause such as hydronephrosis. She denies f oul smelling urine, flank pain, fever, and or chills. We discussed at length potential causes of urinary retention as well as further treatment options and risks and benefits of these treatment options. In assessment of the patient today indwelling Mcallister catheter is patent and draining clear yellow urine. All questions were answered. She otherwise offers no other issues or concerns at this time. [facility] Medical History Anasarca Urinary retention Hepatorenal syndrome Liver cirrhosis secondary to MALDONADO Obstructive uropathy Hyponatremia Cirrhosis of liver with ascites Acute kidney insufficiency UTI (urinary tract infection) Cervical cancer Lymphedema Cardiac arrest DVT (deep venous thrombosis) Social History Household Members: Family Household Members Other:: Son, daughter Housing: Apartment Do you presently have visiting nurse or other home services: Yes Alcohol intake: never Comment: DAUGHTER STAYING OVERNIGHT Patient Tobacco Use Status: Never used Tobacco e-Cigarette/Vaping Use: Never Used Advance Directives Date on File: 01/03/23 service: No Review of Systems Const All systems reviewed & are unremarkable except as noted in HPI and below Physical Exam Const General: cooperative, comfortable, no acute distress, well developed, alert and awake Nutritional Appearance: overweight Orientation/consciousness: patient oriented x3 Limitations: language barrier HEENT Head: Yes normal to inspection, Yes normocephalic and Yes atraumatic Ears: hearing grossly normal bilaterally Eyes General: appearance normal, both eyes and all related structures Neck Neck: Yes normal visual inspection and Yes trachea midline Chest Chest palpation & inspection: normal inspection of the chest Resp Effort & Inspection: normal respiratory effort and able to speak in complete sentences Cardio Rate: regular rate GI Inspection: Yes normal to inspection General: Yes no CVA tenderness Back/Spine/Pelvis Back: no CVA tenderness Skin General skin exam: no rashes or lesions noted Neuro General: patient oriented x3 Extrem General: Yes normal to inspection Psych Appearance: grossly normal and well kempt Mental Status: mental status grossly normal Speech and movement: Normal speech and movement present and Clear speech present Affect: normal affect Attitude: cooperative Thought process: Normal thought process present Thought content: Normal thought content present Insight: Fair insight present (Psych) Judgement: Fair judgement present (Psych) Assessment & Plan Assessment & Plan (1) Neurogenic bladder: Code(s): N31.9 - Neuromuscular dysfunction of bladder, unspecified Category: Medical Plan: Risks, benefits and alternatives to therapy were discussed. These include but are not limited to infection, bleeding, damage to local organs and tissues, need for further interventions. ? Anesthetic risks regarding cardiac arrhythmia, blood clots, and potential mortality were discussed. The patient understands the typical recovery time and the outpatient nature of the procedure. After consideration of these risks the patient gives full informed consent and they wish to move ahead with the procedure. Plan Mcallister catheter draining clear yellow urine. We did discuss potential causes of neurogenic bladder as well as urinary retention; we discussed further treatment options and risks and benefits of these treatment options. We discussed potential causes of hematuria. Will continue with catheter changes at this time Will plan to schedule for suprapubic tube placement as discussed; risks and benefits were reviewed. All questions were answered. Continue VESIcare Follow-up per doctor's orders; or sooner with any issues, concerns, and or questions. Patient Instructions: The patient had an opportunity to ask questions regarding the treatment plan. All questions were answered. Physical exam, labs, and imaging were discussed and reviewed in detail. As well as risks, benefits, and discussion of treatment choices. No major barriers to understanding were identified. The patient expressed understanding and agreement with the above treatment plan. The patient was made aware they should contact our office by phone for worsening of their current condition, the appearance of new symptoms, or with any questions or concerns. Compliance is encouraged with any medications and follow up testing that is ordered. It is a privilege to be allowed the opportunity to participate in? your urological care.? Again, if you have any questions or concerns If you have any questions or concerns please do not hesitate to contact me. The office is [phone]. This note is constructed using voice recognition software. While every effort has been made to ensure accuracy government documents librarian errors may have been included. Yours sincerely, FRANCES Diehl Coding Level of Care Code Est Pt Level 4 (09220) Diagnoses Neurogenic bladder N31.9
--- OUTSIDE RECORDS SUMMARY | 2024-10-11 14:58 | XMS_ITS | Clinical Summary ---
Author Organization [facility] Address [address] [address] Phone Care Team Providers Care Library Technician Name Role Phone Kristin Todd MD Primary [...] 02/23/2023 Schizophrenia 02/23/2023 02/23/2023 Main spoken language South Sudanese 02/23/2023 Type 2 diabetes mellitus 02/23/2023 023 [...] Insurance Medicaid [place] Care Teams Library Technician Relationship Specialty Start Date End Date Kristin Todd MD [address] PCP - General Internal Medicine 02/23/23
--- OUTSIDE RECORDS SUMMARY | 2024-10-11 14:58 | XMS_ITS | Encounter Summary ---
Author Organization [facility] Address [address] [place] [address] Care Team Providers Care Boiler Engineer Name Role Phone Kristin Todd Primary Care Provider [phone] Encounter Details Date Type Department Care Team ([facility] Contact Info) Description 01/19/2023 Orders Only [facility] Interventional Radiology [address] [place] [address] [phone] Rosendo Church MD [address] [place] [address] [phone] Social History Tobacco Use Types Packs/Day Years [...] on filedocumented in this encounter Care Teams Boiler Engineer Relationship Specialty Start Date End Date Kristin Todd [address] [place] [address] PCP - General Internal Medicine 01/21/23 documented as of this encounter
--- OUTSIDE RECORDS SUMMARY | 2024-10-11 14:58 | XMS_ITS | Encounter Summary ---
Author Organization [employer] Address [address] [facility] 7 [place] [address] Care Team Providers Care Thread Roller Name Role Phone Kristin Todd MD Primary Care Provider [phone] Reason for Visit * Reason Onset Date Comments Referral 02/16/2024 Encounter Details Date Type Department Care Team ([facility] st Contact Info) Description 02/16/[address] [facility] MEDICINE [address] [place], [place] [phone] Kristin Todd MD [address] [facility] [address] [place] [address] Referral Social History Tobacco Use Types Packs/Day [...] 10:43 AM EST Tc from Efren with [facility] calling to inform they won't be able to complete referral for TMJ, she would need to be referred else where. They advised to refer pt to [facility]. If any questions you can contact Efren at [phone]. documented in this encounter Plan of Treatment Upcoming Encounters Date Type Department Care Team (Late st Contact Info) Description 01/03/2025 1:15 PM EDT Office Visit [facility] MED & PEDS [address] [place] [address] Kristin Todd MD [address] [place] [address] documented as of this encounter Visit Diagnoses Not on filedocumented in this encounter Additional Health Concerns Assessment Noted Time PHQ-9 Depression Total Score: 5 10/20/19 24 11:56 AM EDT documented as of this encounter Care Teams Thread Roller Relationship Specialty Start Date End Date Kristin Todd MD [address] [place] [address] PCP - General Family Medicine 03/28/18 Fabby Molina 04/01/23 documented as of this encounter
== END 2024-10-11 14:57 | disposition home or self-care (01) ==
LOC: HO.HUSH 14:10
PROVIDERS: PCP Pediatrics; Visit Provider Nurse Practitioner Family
DX: N31.9 Neuromuscular dysfunction of bladder, unspecified (principal)
CPT/HCPCS: 99214

== ENCOUNTER → 2024-10-11 14:09 | Outpatient (BNVA) | payer MEDICAID, SELFPAY | PROVIDERS: PCP Pediatrics; Visit Provider Nurse Practitioner Family | DX: N31.9 Neuromuscular dysfunction of bladder, unspecified (principal) | CPT/HCPCS: 99212 ==

== ENCOUNTER → 2024-10-24 14:06 | Outpatient (BNVA) | payer MEDICAID, SELFPAY | PROVIDERS: PCP Pediatrics; Visit Provider Urology | DX: N13.9 Obstructive and reflux uropathy, unspecified (principal) | CPT/HCPCS: 51702 ==

== ENCOUNTER → 2024-11-29 12:35 | Outpatient (BNVA) | payer MEDICAID, SELFPAY | PROVIDERS: PCP Pediatrics; Visit Provider Urology | DX: Z46.6 Encounter for fitting and adjustment of urinary device (principal); N31.9 Neuromuscular dysfunction of bladder, unspecified | CPT/HCPCS: 51702 ==

== ENCOUNTER 2024-12-10 12:03 | Day surgery (SDC) | payer MEDICAID, SELFPAY ==
--- OUTSIDE RECORDS SUMMARY | 2024-11-14 14:37 | XMS_ITS | Clinical Summary ---
Author Organization [facility] Address [address] [facility] [address] [place] [address] Phone Care Team Providers Care Slasher Tender Name Role Phone Pcp, Unknown Primary Care Provider Unavailabl e Social History Tobacco Use Types Packs/Day Years Used Date Smoking Tobacco: Never Assessed Education Answer Date Recorded Are you interested in more education? Not on carlos e 12/29/2022 Are you concerned about learning? Not on file 12/29/2022 No 12/29/2022 No 12/29/2022 Digital Access Answer Date Recorded No 12/29/2022 No 12/29/2022 Reliable internet access at home? Not on file 12/29/2022 Device with a working camera? Not on file Comments Unknown Sex and Gender Information Value Date Recorded Sex Assigned at Not on file Legal Sex Female 11:02 AM EDT Gender Identity Not on file Sexual Orientation Not on file Plan of Treatment Health Maintenance Due Date Last Done Comments Adult Td,Tdap Booster 1971 LIPID PANEL 1971 DEPRESSION SCREENING 1983 SMOKING Hx and SMOKELESS TOB ACCO SCREENING 10/01/1984 HEPATITIS C SCREENING 10/01/1989 HIV ONE-TIME SCREENING (18-6 5 YEARS) 10/01/1989 PAP SMEAR 10/01/1992 MAMMOGRAM 2011 COLOGUARD 10/01/2016 COLONOSCOPY 10/01/2016 COLORECTAL CANCER SCREENING 10/01/2016 FIT TEST 10/01/2016 FOBT 10/01/2016 SIGMOIDOSCOPY 10/01/2016 VIRTUAL COLONOSCOPY 10/01/2016 PNEUMOCOCCAL VACCINES (50+ y ears) (1 of 1 - PCV) 10/01/2021 ZOSTER VACCINES (1 of 2) 10/01/2021 COVID-19 VACCINE (2023-2 5 season) 2023 HEPATITIS A VACCINES Aged Out No long er eligible based on patient's age to complete this topic HIB VACCINES Aged Out No longer eligi ble based on patient's age to complete this topic MENINGOCOCCAL VACCINES (ACWY) Aged Out No longer eligible based on patient's age to complete this topic MENINGOCOCCAL VACCINES (B) Aged Out N o longer eligible based on patient's age to complete this topic Medical Devices Not on file Insurance Care Teams Slasher Tender Relationship Specialty Start Date End Date Pcp, Unknown PCP - General 12/29/22 Additional Source Comments The information contained in this document represents components of the legal health record. It is not the complete legal health record.[facility]
--- OUTSIDE RECORDS SUMMARY | 2024-11-14 14:37 | XMS_ITS | Encounter Summary ---
Author Organization [employer] Address [address] [facility] 7 [place] [address] Care Team Providers Care Liner Inserter Name Role Phone Kristin Todd MD Primary Care Provider [phone] Reason for Visit * Reason Onset Date Comments Referral 11/05/2024 Encounter Details Date Type Department Care Team ([facility] st Contact Info) Description 11/05/2024 Telephone [facility] [address] [place] [address] Kristin Todd MD [address] [place] [address] Referral Social History Tobacco Use Types Packs/Day Years Used Date Smoking Tobacco: Never Passive Smoke Exposure: Never Smokeless Tobacco: Never Depression Answer Date Recorded Patient Health Questionnaire-9 Score 6 06/14/2024 Patient Health Questionnaire-9 Score 6 06/14/2024 Last PHQ-9: Questionnaire Data Not on file 0 06/14/2024 Housing Stability Answer Date Recorded What is your housing situation today? I have brian verduzco 06/14/[address] you li ve. Do you have problems with any of the following? None of the above 06/14/2024 Food Insecurity Answer Date Recorded Within the past 12 months, y ou worried that your food would run out before you got money to buy more: Never True 06/14/2024 Within the past 12 months,th e food you bought just didn't last and you didn't have enough money to get more: Never True Transportation Answer Date Recorded In the past 12 months, has l ack of transportation kept you from medical appts, meetings, work or from getting things needed for daily living? No 06/14/2024 Utilities Answer Date Recorded In the past 12 months, has t he electric, gas, oil or water company threatened to shut off services in your home? No 06/14/2024 Depression Answer Date Recorded Patient Health Questionnaire-2 Score 2 06/14/2024 Internet Access Answer Date Recorded Internet Access Q1 Yes 06/14/2024 Internet Access Q2 Not on file 06/14/2024 Comments Unknown Sex and Gender Information Value Date Recorded Sex Assigned at Female 01/25/2022 10:20 AM EDT Legal Sex Female 10:20 AM EDT Gender Identity Female 01/25/2022 10:20 AM EDT Sexual Orientation Straight 01/25/2022 10 :20 AM EDT documented as of this encounter Miscellaneous Notes * Telephone Encounter - Clarice Triana - 11/05/2024 2:14 PM EDT Tc from pt requesting that Mammogram screening referral be sent to [facility] [address] [place] [phone] , instead of where it was originally faxed too. Contact Pt at [phone] (croatian) documented in this encounter Plan of Treatment Upcoming Encounters Date Type Department Care Team ([facility] st Contact Info) Description 12/13/2024 2:15 PM EDT Office Visit [facility] MED [facility] PED[facility] [address] [place] [address] Kristin Todd MD [address] [place] [address] 01/03/2025 1:15 PM EDT Office Visit [facility] [address] [place] [address] Kristin Todd MD [address] [place] [address] documented as of this encounter Visit Diagnoses Not on filedocumented in this encounter Additional Health Concerns Assessment Noted Time PHQ-9 Depression Total Score: 6 06/15/19 25 2:37 PM EDT documented as of this encounter Care Teams Liner Inserter Relationship Specialty Start Date End Date Kristin Todd MD [address] [place] [id number] PCP - General Family Medicine 03/28/18 Fabby Molina 04/01/23 documented as of this encounter
--- OUTSIDE RECORDS SUMMARY | 2024-11-14 14:37 | XMS_ITS | Clinical Summary ---
Author Organization [facility] Address [address] [address] Phone Care Team Providers Care Obiee Architect Name Role Phone Kristin Todd MD Primary [...] 02/23/2023 Schizophrenia 02/23/2023 02/23/2023 Main spoken language Thai 02/23/2023 Type 2 diabetes mellitus 02/23/2023 023 [...] Insurance Medicaid [place] Care Teams Obiee Architect Relationship Specialty Start Date End Date Kristin Todd MD [address] PCP - General Internal Medicine 02/23/23
--- OUTSIDE RECORDS SUMMARY | 2024-11-14 14:37 | XMS_ITS | Encounter Summary ---
Author Organization [facility] Address [address] [place] [address] Care Team Providers Care Simplex Operator Name Role Phone Kristin Todd Primary Care Provider [phone] Encounter Details Date Type Department Care Team ([facility] Contact Info) Description 01/19/2023 Orders Only [facility] Interventional Radiology [address] [place] [address] [phone] Rosendo Church MD [address] [place] [address] [phone] Social History Tobacco Use Types Packs/Day Years [...] on filedocumented in this encounter Care Teams Simplex Operator Relationship Specialty Start Date End Date Kristin Todd [address] [place] [id number] PCP - General Internal Medicine 01/21/23 documented as of this encounter
[2024-12-06 14:08] VITALS: BMI 42.3
--- NOTE | 2024-12-06 14:22 | HO.ANESPROP2 ---
Documented by User: Meera Kennedy NP 12/07/24 12:28 HPI - Anesthesia Eval Consult details Narrative: 54yo F for Insertion Suprapubic Tube Cardiac optimized Eliquis custodial anticoag for hx multiple DVTs ? Hx Cardiac arrest 2020 per cardiac note, no other details - per documentation at [facility] pt had post-op hemmorhagic shock requiring pressor support in 2020 Hx Cirrhosis: 2023 C admit with hepatorenal syndrome requiring paracentesis - 2024 abd US shows mild disease without ascites, platelets stable, INR elevated (? d/t previous coumadin use, now on eliquis and will repeat DOS). Pt does not follow GI provider PMF Active Problems Active Problems: All Active Problems Liver cirrhosis (Acute) Neurogenic bladder (Acute) UTI (urinary tract infection) due to urinary indwelling catheter (Acute) Elevated INR (Acute) Subtherapeutic anticoagulation (Acute) Pleural effusion (Acute) Morbid obesity (Acute) Pneumonia (Acute) Acute hypoxic respiratory failure (Acute) Past Medical History Medical History Myocardial infarct Anasarca Urinary retention Hepatorenal syndrome Liver cirrhosis secondary to MALDONADO Obstructive uropathy Hyponatremia Cirrhosis of liver with ascites Acute kidney insufficiency UTI (urinary tract infection) Cervical cancer Lymphedema Cardiac arrest DVT (deep venous thrombosis) Surgical History Surgical History H/O section H/O colonoscopy History of bladder surgery Hx of tonsillectomy History of lumpectomy of right breast Social History Social History Household Members: Family Household Members Other:: Son, daughter Housing: Apartment Do you presently have visiting nurse or other home services: Yes Alcohol intake: never Comment: DAUGHTER STAYING OVERNIGHT Patient Tobacco Use Status: Never used Tobacco e-Cigarette/Vaping Use: Never Used Use of substances other than those prescribed or required for medical reasons: No Are you DNR?: No Advance Directives: No Advance Directives Information Provided: Yes Advance Directives Date on File: 01/03/23 Patient : No : No Poor oral hygiene: No service: No Meds Allergies Allergy/AdvReac Type Severity Reaction Status Date / Time No Known Allergies (No Known Allergy Verified 10/12/24 13:03 Allergies*) Home Medications ?Medication ?Instructions ?Recorded ?Confirmed ?Last Taken ?Type bupropion HCl 200 mg tablet,12 hr 200 mg PO BID depressive disorder 01/03/23 10/12/24 01/10/24 09:00 History sustained-release hydroxyzine pamoate 25 mg capsule 25 mg PO TID PRN Anxiety 01/03/23 10/12/24 01/10/24 09:00 History loratadine 10 mg tablet 10 mg PO DAILY 01/03/23 10/12/24 01/10/24 09:00 History ondansetron HCl 4 mg tablet 4 mg PO BID Nausea And Vomiting 01/03/23 10/12/24 01/10/24 09:00 History risperidone microspheres 50 mg/2 50 mg IM Q2W 01/03/23 10/12/24 12/30/23 History mL intramuscular susp,ext release (Risperdal Consta) zolpidem 10 mg tablet 10 mg PO BEDTIME Insomnia 01/03/23 10/12/24 01/10/24 09:00 History benztropine 0.5 mg tablet 0.5 mg PO BID PRN dystonias 07/13/23 10/12/24 01/10/24 09:00 History nystatin 100,000 unit/gram topical 1 appl topical BID 07/13/23 10/12/24 01/10/24 09:00 History powder furosemide 40 mg tablet 40 mg PO DAILY 08/05/23 10/12/24 01/10/24 09:00 History citalopram 40 mg tablet 40 mg PO DAILY depressive disorder 01/11/24 10/12/24 01/10/24 09:00 History apixaban 2.5 mg tablet (Eliquis) 2.5 mg PO BID 12/06/24 12/10/24 12/05/24 History Exam Height,Weight and Vital Signs: Height 5 ft 3 in Weight 108.409 kg Pertinent Lab Results Pertinent Lab Results: Laboratory Tests 10/04/24 11:43 WBC 4.4 L Hgb 12.6 Hct 39.2 Plt Count 309 D Sodium 137 Potassium 4.1 D Chloride 99 Carbon Dioxide 29 BUN 11 Creatinine 1.01 Total Bilirubin 0.5 Direct Bilirubin 0.2 AST 22 ALT 13 Alkaline Phosphatase 107 Total Protein 7.7 Albumin 4.6 Narrative Narrative: Abdominal US 07/2024 Impression: 1. Normal-sized liver coarsened hepatic echotexture reflecting hepatic steatosis or mild diffuse hepatocellular disease. No focal hepatic lesions. 2. Normal gallbladder 3. Mild caliectasis right kidney. Abdominal CT 04/2024 IMPRESSION: 1. Limited examination as described above. There is hepatomegaly with small volume ascites throughout the abdomen. Cirrhosis is not excluded on this examination. 2. Limited visualization of the gallbladder wall. Gallbladder wall thickening can not be excluded on this exam. If there is clinical concern for acute cholecystitis, recommend gallbladder ultrasound examination and/or nuclear medicine HIDA scan for further evaluation. 3. Moderate proximal to mid colonic stool burden. No bowel obstruction. EKG 2023 Vent. Rate : 094 BPM Atrial Rate : 094 BPM P-R Int : 158 ms QRS Dur : 078 ms QT Int : 360 ms P-R-T Axes : 045 060 026 degrees QTc Int : 450 ms Normal sinus rhythm Normal ECG When compared with ECG of 07-JAN-2023 15:07, T wave inversion now evident in Anterior leads T wave inversion no longer evident in Lateral leads Assessment and Plan Assessment Anesthesia Assessment: Chart Reviewed Documented by User: Che Patel MD 12/10/24 14:31 [facility] Past Medical History Medical History Myocardial infarct Anasarca Urinary retention Hepatorenal syndrome Liver cirrhosis secondary to MALDONADO Obstructive uropathy Hyponatremia Cirrhosis of liver with ascites Acute kidney insufficiency UTI (urinary tract infection) Cervical cancer Lymphedema Cardiac arrest DVT (deep venous thrombosis) Surgical History Surgical History H/O section H/O colonoscopy History of bladder surgery Hx of tonsillectomy History of lumpectomy of right breast History of Problems with Anesthesia: No Social History Social History Household Members: Family Household Members Other:: Son, daughter Housing: Apartment Do you presently have visiting nurse or other home services: Yes Alcohol intake: never Comment: DAUGHTER STAYING OVERNIGHT Patient Tobacco Use Status: Never used Tobacco e-Cigarette/Vaping Use: Never Used Use of substances other than those prescribed or required for medical reasons: No Are you DNR?: No Advance Directives: No Advance Directives Information Provided: Yes Advance Directives Date on File: 01/03/23 Patient : No : No Poor oral hygiene: No service: No Meds Allergies Allergy/AdvReac Type Severity Reaction Status Date / Time No Known Allergies (No Known Allergy Verified 10/12/24 13:03 Allergies*) Home Medications ?Medication ?Instructions ?Recorded ?Confirmed ?Last Taken ?Type bupropion HCl 200 mg tablet,12 hr 200 mg PO BID depressive disorder 01/03/23 10/12/24 01/10/24 09:00 History sustained-release hydroxyzine pamoate 25 mg capsule 25 mg PO TID PRN Anxiety 01/03/23 10/12/24 01/10/24 09:00 History loratadine 10 mg tablet 10 mg PO DAILY 01/03/23 10/12/24 01/10/24 09:00 History ondansetron HCl 4 mg tablet 4 mg PO BID Nausea And Vomiting 01/03/23 10/12/24 01/10/24 09:00 History risperidone microspheres 50 mg/2 50 mg IM Q2W 01/03/23 10/12/24 12/30/23 History mL intramuscular susp,ext release (Risperdal Consta) zolpidem 10 mg tablet 10 mg PO BEDTIME Insomnia 01/03/23 10/12/24 01/10/24 09:00 History benztropine 0.5 mg tablet 0.5 mg PO BID PRN dystonias 07/13/23 10/12/24 01/10/24 09:00 History nystatin 100,000 unit/gram topical 1 appl topical BID 07/13/23 10/12/24 01/10/24 09:00 History powder furosemide 40 mg tablet 40 mg PO DAILY 08/05/23 10/12/24 01/10/24 09:00 History citalopram 40 mg tablet 40 mg PO DAILY depressive disorder 01/11/24 10/12/24 01/10/24 09:00 History apixaban 2.5 mg tablet (Eliquis) 2.5 mg PO BID 12/06/24 12/10/24 12/05/24 History Exam Airway Mallampati Class: II TM Dist: >3cm Neck ROM: Full Loose/Missing/Broken Teeth: No Heart: RRR Lungs: CTA Assessment and Plan Assessment Anesthesia Assessment: Anesthesia Plan Discussed Final Anesthetic Review History of Problems with Anesthesia: No NPO: Yes ASA Class: III Final Preanesthetic Review: Meds/Allgs Chart Reviewed, Consent Obtained/Reviewed and Anes Risks/Benef Reviewed Patient Risk: Intermediate Procedure Risk: Low Anesthetic Plan Anesthetic Plan: MAC: Disposition: Standard PACU
[2024-12-10 12:23] VITALS: BMI 41.7
[2024-12-10 12:59] VITALS: BP 112/63; PULSE 94; RESP 16; TEMP 37.1; O2SAT 94
[2024-12-10 13:00] LABS: INTERNATIONAL NORM RATIO 1.1 (0.9-1.1); Prothrombin Time 12.7 SEC (10.9-12.4)
--- NOTE | 2024-12-10 14:10 | P.HPSUR_ITS ---
Pre-Procedural Eval Section A - 24 Hr Update-Section A only Date of Service: 12/10/24 The patient is an INPATIENT: No Changes since office visit: No Cold of Flu in the past 2 weeks, No New Medical Problems, No Changes in Medication and No Patient answered all questions The patient has been examined within 24 hours of the surgical procedure. The History & Physical has been completed within 30 days and I have reviewed it.: Yes Section B - Complete if H&P > 30 days Chief Complaint: Neuromuscular dysfunction of bladder, unspecified Details of Present Illness: Cystoscopy, suprapubic tube placement Relevant Social History: None Present Medications: see Short Stay Collaborative assessment Medical History: Significant History History of Previous Operations: No relevant previous surgery Allergies: Allergies Allergy/AdvReac Type Severity Reaction Status Date / Time No Known Allergies (No Known Allergy Verified 10/12/24 13:03 Allergies*) Review of Systems Sugical H&P ROS: Negative: Constitution, Cardiovascular, Respiratory, Neurological, Psychiatric, Hem-Onc, Allergic/Immunologic, Gastrointestinal, Genitourinary, Musculoskeletal, Integumentary, Endocrine and Eyes/Ears/Nose/ Throat Exam Surgical H&P Exam: Normal: HEENT, Normal: Heart, Normal: Lungs, Normal: Extremities, Normal: Abdomen, Normal: Skin and Normal: Neurological Plan Diagnosis/Plan: Unchanged (Cystoscopy and SPT placement) I have reviewed the history and physical and performed a pertinent physical examination on my patient. No changes have occurred unless specified. Time Spent With Patient Time: Total time managing care of this patient today ____ minutes.
--- NOTE | 2024-12-10 14:54 | P.OP_ITS ---
Operative Note Operative Note Date of Service: 12/10/24 Narrative: PreOperative Diagnosis:?neurogenic bladder Post Operative Diagnosis:?neurogenic bladder Procedure:? 1. Cystoscopy 2. Suprapubic tube placement Surgeon: Dr Corbin Hoff Anesthesia:?Sedation plus local Indications for procedure: Neurogenic bladder with self catheterization and leakage since nonresponsive to overactive bladder medications Procedure: After informed consent was verified the patient was brought to the operating room and placed in a supine position.? Anesthesia was administered per protocol. The patient was placed in a modified dorsal lithotomy position and prepped and draped in a sterile fashion. A safety pause was performed confirming patient identity, procedure and antibiotics. A 22 English cystoscope was inserted per urethra. Bladder was examined in its entirety. No abnormalities seen. Air bubble was located at the dome of the bladder. A finder needle was inserted 2 fingerbreaths above the symphysis pubis on the abdomen into the bladder.? The needle was visualized in the bladder via cystoscopy. Local anesthetic was infiltrated subcutaneously around the needle introduction site. A small, 1cm horizontal incision was made.? A trocar introducer was advanced through the abdominal wall into the bladder under visualization. The obturator was removed and a 16 Fr francisco catheter placed. 7cc was used to inflate the balloon. The external portion of the trocar was removed. 2-0 nylon used to secure suprapubic tube Dressing was placed, the bladder was emptied, and a drainage bag was attached. The patient tolerated the procedure and was transferred in stable condition to the recovery area. Suprapubic tube will be changed in 1 month with a follow-up office visit.
[2024-12-10 15:00] VITALS: BP 97/57; PULSE 93; RESP 18; TEMP 36.5; O2SAT 97
[2024-12-10 15:10] VITALS: BP 117/65; PULSE 82; RESP 16; TEMP 36.4; O2SAT 98
== END 2024-12-10 16:05 | disposition home or self-care (01) ==
PROVIDERS: Nurse Practitioner; PCP Pediatrics; Visit Provider Urology
PROC: (CPT 51102; principal; 2024-12-10 13:40)
DX: N31.9 Neuromuscular dysfunction of bladder, unspecified (principal); Z87.440 Personal history of urinary (tract) infections; I89.0 Lymphedema, not elsewhere classified; K74.60 Unspecified cirrhosis of liver; K75.81 Nonalcoholic steatohepatitis (NASH); I25.2 Old myocardial infarction; E66.9 Obesity, unspecified; Z68.41 Body mass index [BMI] 40.0-44.9, adult; Z86.718 Personal history of other venous thrombosis and embolism; Z85.41 Personal history of malignant neoplasm of cervix uteri; Z79.01 Long term (current) use of anticoagulants; Z79.899 Other long term (current) drug therapy
CPT/HCPCS: 51102; 36415; 85610; J1956; J2003; J2250; J2704; J2795; J3010

== ENCOUNTER → 2024-12-10 12:03 | Outpatient (BNV) | payer MEDICAID, SELFPAY | PROVIDERS: PCP Pediatrics; Visit Provider Urology | DX: N31.9 Neuromuscular dysfunction of bladder, unspecified (principal) | CPT/HCPCS: 51102 ==

== ENCOUNTER 2025-01-10 10:58 | Outpatient (AMB) | payer MEDICAID, SELFPAY ==
--- NOTE | 2025-01-10 11:05 | A.OFFVIS_ITS ---
Intake Visit Reasons: SPT change (first) Intake Note: Patient presents today for follow up on: neurogenic bladder and SPTube change #18 [facility]rology Medication: Solifenacin Antibiotic Allergy:NONE Blood Thinner:WARFARIN Junior Database Administrator Required: Yes Accompanied by: Son Allergies No Known Allergies (No Known Allergies*) Allergy (Verified 01/10/25 11:06) HPI Comments Details: Is a pleasant Icelandic-speaking female. She is a patient of Dr. Petty. She is seen for the following urologic conditions - neurogenic bladder - indwelling suprapubic tube Recent suprapubic tube placement Up size to 18 Swazi Continue monthly exchange Six-month follow-up [facility] Medical History Myocardial infarct Anasarca Urinary retention Hepatorenal syndrome Liver cirrhosis secondary to MALDONADO Obstructive uropathy Hyponatremia Cirrhosis of liver with ascites Acute kidney insufficiency UTI (urinary tract infection) Cervical cancer Lymphedema Cardiac arrest DVT (deep venous thrombosis) Surgical History H/O section H/O colonoscopy History of bladder surgery Hx of tonsillectomy History of lumpectomy of right breast Social History Household Members: Family Household Members Other:: Son, daughter Housing: Apartment Do you presently have visiting nurse or other home services: Yes Alcohol intake: never Comment: DAUGHTER STAYING OVERNIGHT Patient Tobacco Use Status: Never used Tobacco e-Cigarette/Vaping Use: Never Used Advance Directives Date on File: 01/03/23 service: No Review of Systems Const Denies chills and Denies fever(s) Card Reports no additional complaints and Denies syncope Resp Denies cough GI Denies abdominal pain and Denies heartburn Reports as per HPI and Denies change in libido Neuro Denies syncope Psych Denies change in libido Endo Denies change in libido Physical Exam Const General: cooperative, healthy appearing, comfortable and no acute distress Orientation/consciousness: patient oriented x3 HEENT Face and sinus: Yes normal facial exam Mouth: moist mucous membranes Neck Neck: Yes normal visual inspection, Yes full ROM and Yes trachea midline Chest Chest palpation & inspection: normal inspection of the chest Resp Effort & Inspection: normal respiratory effort, able to speak in complete sentences and no respiratory distress GI Inspection: Yes normal to inspection Back/Spine/Pelvis Cervical Spine: normal cervical lordosis Thoracic/Lumbar Spine: thoracic and lumbar spine normal to inspection Skin General skin exam: no rashes or lesions noted Neuro General: patient oriented x3, gait normal, tone normal and moves all extremities Extrem General: Yes normal to inspection and Yes capillary refill normal Office Procedures Bladder/Catheter Procedure Details: Clean exchange Eighteen Swazi 10 cc balloon Antiseptic use 96224-Cjnflc of bladder tube Procedure code (CPT) selection complete Assessment & Plan Assessment & Plan (1) Suprapubic catheter: Code(s): Z93.59 - Other cystostomy status Category: Medical Plan Monthly exchange Six-month follow-up provider Patient Instructions: This note is constructed using voice recognition software. While every effort has been made to ensure accuracy stenciling machine tender errors may have been included. Imaging studies, laboratory and physical exam results were discussed and reviewed in detail. No major barriers to patient understanding were identified. An opportunity to ask questions regarding the treatment plan was provided. All questions were answered. The patient expressed understanding and agreement with the above treatment plan. The patient is aware they should contact our office by phone for worsening of their current condition or the appearance of new urologic symptoms. Compliance is encouraged with any medications and followup testing that is ordered. It is a privilege to participate in the urologic care of your patient. If you have any questions or concerns regarding treatment for the above conditions, or other urologic issues, please do not hesitate to contact me. The office telephone contact is [phone]. Sincerely, Dr Corbin Hoff MD, [facility] Compassionate Specialist Care for the Genitourinary System Coding Level of Care Code Est Pt Level 3 (74267) Add On Problem Visit Only Diagnoses Suprapubic catheter Z93.59 CPT Codes Bladder/Catheter Procedure - CPT: 51094-[id number] of bladder tube ([id number])
--- OUTSIDE RECORDS SUMMARY | 2025-01-10 13:57 | XMS_ITS | Encounter Summary ---
Author Organization [facility] Address [address] [place] [address] Care Team Providers Care Towel Hemmer Name Role Phone Kristin Todd Primary Care Provider [phone] Encounter Details Date Type Department Care Team ([facility] Contact Info) Description 01/21/2023 Orders Only [facility] Interventional Radiology [address] [place] [address] [phone] Rosendo Church MD [address] [place] [address] [phone] Social History Tobacco Use Types Packs/Day Years [...] on filedocumented in this encounter Care Teams Towel Hemmer Relationship Specialty Start Date End Date Kristin Todd [address] [place] [phone] PCP - General Internal Medicine 01/21/23 documented as of this encounter
--- OUTSIDE RECORDS SUMMARY | 2025-01-10 13:57 | XMS_ITS | Encounter Summary ---
Author Organization [facility] Address [address] [place] [address] Care Team Providers Care Corporate Compliance Manager Name Role Phone Kristin Todd Primary Care Provider [phone] Encounter Details Date Type Department Care Team ([facility] st Contact Info) Description 01/21/2023 Orders Only [facility] [address] [place] [address] Corbin Corrigan MD PhD [address] [place] [address] Social History Tobacco Use Types Packs/Day Years [...] on filedocumented in this encounter Care Teams Corporate Compliance Manager Relationship Specialty Start Date End Date Kristin Todd [address] [place] [address] PCP - General Internal Medicine 01/21/23 documented as of this encounter
--- OUTSIDE RECORDS SUMMARY | 2025-01-10 13:57 | XMS_ITS | Encounter Summary ---
Author Organization [facility] Address [address] [place] [address] Care Team Providers Care Barrel Drainer Name Role Phone Kristin Todd Primary Care Provider Encounter Details Date Type Department Care Team ([facility] Contact Info) Description 01/19/2023 Orders Only [facility] Interventional Radiology [address] [place] [address] [phone] Rosendo Church MD [address] [place] [address] [phone] Social History Tobacco Use Types Packs/Day Years [...] on filedocumented in this encounter Care Teams Barrel Drainer Relationship Specialty Start Date End Date Kristin Todd [address] [place] [id number] PCP - General Internal Medicine 01/21/23 documented as of this encounter
--- OUTSIDE RECORDS SUMMARY | 2025-01-10 13:57 | XMS_ITS | Encounter Summary ---
Author Organization [facility] Address [address] [place] [address] Care Team Providers Care Pharmacy Technician Assistant Name Role Phone Kristin Todd Primary Care Provider [phone] Encounter Details Date Type Department Care Team ([facility] Contact Info) Description 01/20/2023 Orders Only [facility] Interventional Radiology [address] [place] [address] [id number] Rosendo Church MD [address] [place] [address] [id number] Social History Tobacco Use Types Packs/Day Years [...] on filedocumented in this encounter Care Teams Pharmacy Technician Assistant Relationship Specialty Start Date End Date Kristin Todd [address] [place] [address] PCP - General Internal Medicine 01/21/23 documented as of this encounter
--- OUTSIDE RECORDS SUMMARY | 2025-01-10 13:58 | XMS_ITS | Encounter Summary ---
Author Organization [employer] Address [address] [facility] 7 [place] [address] Care Team Providers Care Adoption Worker Name Role Phone Kristin Todd MD Primary Care Provider [phone] Reason for Visit * Reason Onset Date Comments Call Back Request 03/24/2023 Encounter Details Date Type Department Care Team ([facility] Contact Info) Description 03/24/2023 Telephone [facility] CHC MED & PEDS [address] [place] [address] Kristin Todd MD [address] [place] [address] Call Back Request Social History Tobacco Use Types Packs/Day Years Used Date Smoking Tobacco: Never Passive Smoke Exposure: Never Smokeless Tobacco: Never Depression Answer Date Recorded Patient Health Questionnaire-9 Score 9 04/16/2022 Housing Stability Answer Date Recorded What is your housing situation today? I have brianramu verduzco 01/10/[address] you li ve. Do you have problems with any of the following? None of the above 01/10/2023 Food Insecurity Answer Date Recorded Within the [...] t he electric, gas, oil or water [employer] threatened to shut off services in your home? No 01/10/2023 Depression Answer Date Recorded Patient Health Questionnaire-2 Score 4 04/16/2022 Comments Unknown Sex and Gender Information Value Date Recorded Sex Assigned at Female 01/25/2022 10:20 AM EDT Legal Sex Female 10:20 AM EDT Gender Identity Female 01/25/2022 10:20 AM EDT Sexual Orientation Straight 01/25/2022 10 :20 AM EDT documented as of this encounter Miscellaneous Notes * Telephone Encounter - Elizabeth Tripathi RN - 03/29/2023 3:25 PM EST Fax sent to [facility] for below request, Confirmation received. * Telephone Encounter - Yelena Blackburn - 03/29/2023 1:50 PM EST Tc from mehran with [facility] requesting orders for medication management and senior care orders as well as 03/22 OV notes to be faxed to sonia laurent [phone] Any questions, please contact mehran at [phone] * Telephone Encounter - Yelena Blackburn - 03/29/2023 11:10 AM EST Tc from elen with nolan states pt has been accepted into [facility] and pt will be discharged from [facility] today (03/29) and will be admitted on 03/31. Elen is requesting a call from nurse and for last OV notes, med list, and coumadin orders to be faxed to savana ([facility]) at [phone] * Telephone Encounter - Elizabeth Tripathi RN - 03/29/2023 9:50 AM EST T/C from Jennifer [facility] service for this pt. Pt. Had folly catheter but now it is removed. As per Jennifer pt. Is psych pt. And not co-operating with this VNA agency. Yesterday VNA went to pt.'s house and spend hour and half hour but pt. refused to take medication. As per VNA pt. Is acting out to transfer her back to [facility] or another agency who has saudi arabian speaking Nurse. Pt. Was at [facility] and wants to go back to [facility] again. VNA wants to transfer pt. To [facility] or anotherani speaking agency for better care. As per LAYLA pt. Is not trusting to this A agency. Agency does not has any Maltese speaking nurse . VNA can be contact at [phone]. Please review and advise. * Telephone Encounter - Polo Allen - 03/25/2023 9:28 AM EST Tc from Jennifer from [facility] calling in regards to message below * Telephone Encounter - Yelena Blackburn - 03/24/2023 1:26 PM EST Tc from elen with [employer] edis requesting to speak with nurse in regards to multiple concerns. Alsorequesting for pt to be referred to a different home care agency with saudi arabian speaking nurses. Please contact elen at [phone] documented in this encounter Plan of Treatment Upcoming Encounters Date Type Department Care Team (Late st Contact Info) Description 01/24/2025 11:00 AM EDT Office Visit [facility] CH[facility] MED & PEDS [address] [place] [address] Kristin Todd MD [address] [place] [address] documented as of this encounter Visit Diagnoses Not on filedocumented in this encounter Additional Health Concerns Assessment Noted Time PHQ-9 Depression Total Score: 9 04/16/19 9:38 AM EST documented as of this encounter Care Teams Adoption Worker Relationship Specialty Start Date End Date Kristin Todd MD [address] [place] [address] PCP - General Family Medicine 03/28/18 [facility] 04/01/23 documented as of this encounter
--- OUTSIDE RECORDS SUMMARY | 2025-01-10 13:58 | XMS_ITS | Encounter Summary ---
Author Organization [employer] Address [address] [facility] 7t [place] [address] Care Team Providers Care Emblem Maker Name Role Phone Kristin Todd MD Primary Care Provider [phone] Encounter Details Date Type Department Care Team (Late st Contact Info) Description 02/03/2023 Abstract [facility] MEDICINE [address] [place] [address] Cassandra Rosas Social History Tobacco Use Types Packs/Day Years Used Date Smoking Tobacco: Never Passive Smoke Exposure: Never Smokeless Tobacco: Never Depression Answer Date Recorded Patient Health Questionnaire-9 Score 9 04/16/2022 Housing Stability Answer Date Recorded What is your housing situation today? I have brian verduzco 01/10/[address] you [...] AM EDT documented as of this encounter Plan of Treatment Upcoming Encounters Date Type Department Care Team ([facility] st Contact Info) Description 01/24/2025 11:00 AM EDT Office Visit [facility] CHC MED & PEDS [address] [place] [address] Kristin Todd MD [address] [place] [address] documented as of this encounter Procedures Procedure Name Priority Date/Time Associated Diagnosis Comments COLONOSCOPY Routine 11/19/2015 documented in this encounter Results * Colonoscopy (11/19/2015) Colonoscopy Normal Normal Narrative Cassandra Rosas - 11/19/2015 Recommended resuming colonoscopies at age 51 Historical Provider HEALTH MAINTENANCE Final Result documented in this encounter Visit Diagnoses Not on filedocumented in this encounter Additional Health Concerns Assessment Noted Time PHQ-9 Depression Total Score: 9 04/16/19 23 9:38 AM EST documented as of this encounter Care Teams Emblem Maker Relationship Specialty Start Date End Date Kristin Todd MD [address] [place] [address] PCP - General Family Medicine 03/28/18 [facility] 04/01/23 documented as of this encounter
--- OUTSIDE RECORDS SUMMARY | 2025-01-10 13:58 | XMS_ITS | Encounter Summary ---
Author Organization [employer] [facility] Address [address] [place] [address] 7 [place] [address] Care Team Providers Care Filer And Sander Name Role Phone Kristin Todd MD Primary Care Provider [phone] Encounter Details Date Type Department Care Team ([facility] Contact Info) Description 05/19/2022 Abstract [facility] MEDICINE [address] [place], [place] [phone] Kristin Todd MD [address] [place], [place] [phone] Social History Tobacco Use Types Packs/Day Years Used Date Smoking Tobacco: Never Passive Smoke Exposure: Never Smokeless Tobacco: Never Depression Answer Date Recorded Patient Health Questionnaire-9 Score 9 04/16/2022 Depression Answer Date Recorded Patient Health Questionnaire-2 [...] Encounters Date Type Department Care Team (Late Contact Info) Description 01/24/2025 11:00 AM EDT Office Visit [facility] CHC MED & PEDS [address] [place], [place] [phone] Kristin Todd MD [address] [place], [place] [phone] documented as of this encounter Visit Diagnoses Not on filedocumented in this encounter Additional Health Concerns Assessment Noted Time PHQ-9 Depression Total Score: 9 04/16/19 23 9:38 AM EST documented as of this encounter Care Teams Filer And Sander Relationship Specialty Start Date End Date Kristin Todd MD [address] [place] [address] PCP - General Family Medicine 03/28/18 [facility] 04/01/23 documented as of this encounter
--- OUTSIDE RECORDS SUMMARY | 2025-01-10 13:58 | XMS_ITS | Encounter Summary ---
Author Organization [employer] [facility] Address [address] [place] [address] [address] [place] [address] Care Team Providers Care Counselling Psychologist Name Role Phone Kristin Todd MD Primary Care Provider [phone] Encounter Details Date Type Department Care Team ([facility] Contact Info) Description 06/09/2022 Telephone [facility] MEDICINE [address] [place], [place] [phone] Kristin Todd MD [address] [place], [place] [phone] Social History Tobacco Use Types Packs/Day Years [...] Upcoming Encounters Date Type Department Care Team ([facility] Contact Info) Description 01/24/2025 11:00 AM EDT Office Visit [facility] CHC MED & PEDS [address] [place], [place] [phone] Kristin Todd MD [address] [place], [place] [phone] documented as of this encounter Visit Diagnoses Not on filedocumented in this encounter Additional Health Concerns Assessment Noted Time PHQ-9 Depression Total Score: 9 04/16/19 23 9:38 AM EST documented as of this encounter Care Teams Counselling Psychologist Relationship Specialty Start Date End Date Kristin Todd MD [address] [place] [address] PCP - General Family Medicine 03/28/18 [facility] 04/01/23 documented as of this encounter
--- OUTSIDE RECORDS SUMMARY | 2025-01-10 13:58 | XMS_ITS | Encounter Summary ---
Author Organization [employer] Address [address] [facility] 7 [place] [address] Care Team Providers Care Pediatric Psychologist Name Role Phone Kristin Todd MD Primary Care Provider [phone] Reason for Visit * Reason Onset Date Comments Referral 02/24/2023 Encounter Details Date Type Department Care Team ([facility] Contact Info) Description 02/24/2023 Telephone [facility] CHC MED & PEDS [address] [place] [address] Kristin Todd MD [address] [place] [address] Referral Social History Tobacco Use Types Packs/Day [...] encounter Miscellaneous Notes * Telephone Encounter - Natasha Zuniga RN - 02/24/2023 6:25 PM EST TC placed to patient via [employer] Forklift Operator regarding message below. Patient states that she needsa referral to a blender / cook she has seen before. She states that Dr. Todd will know the name of this blender / cook. She doesn't remember the name or know how to spell it. She also asks for another referral for the swelling in her jaw. Patient reports that this swelling has been going on for two years and is in the bottom of her jaw on both sides. Patient states that she did have a referral to someone to see in the past to evaluate this pain, but she didn't follow up, and she states she needs to see a specialist about this pain because it has been worsening. Patient scheduled for visit with Dr. Todd on 03/03/23 @ 10:15. Routing to Dr. Todd for review. Message: Tc from pt requesting referral to podiatry located in [place]. Technical Research Scientist was not able to obtain location but pt states provider is aware and knows the name of location. For clarification/questions, please contact pt at [phone] ([place]) * Telephone Encounter - Yelena Blackburn - 02/24/2023 1:53 PM EST Tc from pt requesting referral to podiatry located in [place]. Technical Research Scientist was not able to obtain location but pt states provider is aware and knows the name of location. For clarification/questions, please contact pt at [phone] ([place]) documented in this encounter Plan of Treatment Upcoming Encounters Date Type Department Care Team (Late st Contact Info) Description 01/24/2025 11:00 AM EDT Office Visit [facility] MED & PEDS [address] [place] [address] Kristin Todd MD [address] [place] [address] documented as of this encounter Visit Diagnoses Not on filedocumented in this encounter Additional Health Concerns Assessment Noted Time PHQ-9 Depression Total Score: 9 04/16/19 9:38 AM EST documented as of this encounter Care Teams Pediatric Psychologist Relationship Specialty Start Date End Date Kristin Todd MD [address] [place] [address] PCP - General Family Medicine 03/28/18 [facility] 04/01/23 documented as of this encounter
--- OUTSIDE RECORDS SUMMARY | 2025-01-10 13:58 | XMS_ITS | Encounter Summary ---
Author Organization [employer] [facility] Address [address] [place] [address] Care Team Providers Care Supervisor Maintenance Name Role Phone Kristin Todd MD Primary Care Provider [phone] Encounter Details Date Type Department Care Team (Late st Contact Info) Description 02/26/2022 Orders Only [facility] [address] [place] [address] Chris Sanford, RN [address] [place] [address] Social History Tobacco Use Types Packs/Day Years Used Date Smoking Tobacco: Never Assessed Comments Unknown Sex and Gender Information Value [...] Description 01/24/2025 11:00 AM EDT Office Visit [facility] CHC MED & PEDS [address] [place] [address] Kristin Todd MD [address] [place] [address] documented as of this encounter Visit Diagnoses Not on filedocumented in this encounter Care Teams Supervisor Maintenance Relationship Specialty Start Date End Date Kristin Todd MD [address] [place] [address] PCP - General Family Medicine 03/28/18 [facility] 04/01/23 documented as of this encounter
--- OUTSIDE RECORDS SUMMARY | 2025-01-10 13:58 | XMS_ITS | Encounter Summary ---
Author Organization [employer] Address [address] [place] [address] 7 [place] [address] Care Team Providers Care Production Aide Name Role Phone Kristin Todd MD Primary Care Provider [phone] Reason for Visit * Reason Comments Med Change Request Encounter Details Date Type Department Care Team ([facility] Contact Info) Description 07/12/2023 Refill [facility] CHC MED & PEDS [address] [place], [place] [phone] Kristin Todd MD [address] [place] [address] Acute venous embolism and thrombosis of deep vessels of distal lower extremity, unspecified laterality (CMS/HCC) Social History Tobacco Use Types Packs/Day Years [...] 01/24/2025 11:00 AM EDT Office Visit [facility] MED & PEDS [address] [place] [address] Kristin Todd MD [address] [place] [address] documented as of this encounter Visit Diagnoses Diagnosis Acute venous embolism and thrombosis of deep vessels of distal lower extremity, unspecified laterality (HCC) documented in this encounter Additional Health Concerns Assessment Noted Time PHQ-9 Depression Total Score: 9 04/16/19 23 9:38 AM EST documented as of this encounter Care Teams Production Aide Relationship Specialty Start Date End Date Kristin Todd MD [address] [place] [address] PCP - General Family Medicine 03/28/18 [facility] 04/01/23 documented as of this encounter
--- OUTSIDE RECORDS SUMMARY | 2025-01-10 13:58 | XMS_ITS | Encounter Summary ---
Author Organization [employer] Address [address] [facility] 7 [place] [address] Care Team Providers Care Demurrage Clerk Name Role Phone Kristin Todd MD Primary Care Provider [phone] Reason for Visit * Reason Onset Date Comments Nurse Triage 04/18/2024 Encounter Details Date Type Department Care Team ([facility] st Contact Info) Description 04/18/2024 Telephone [facility] CHC MED & PEDS [address] [place] [address] rKistin Todd MD [address] [place] [address] Nurse Triage Social History Tobacco Use Types Packs/Day Years [...] encounter Miscellaneous Notes * Telephone Encounter - Miri Valdivia RN - 04/18/2024 2:17 PM EST Triage call with [facility] printing shop supervisor [place] [id number] Pt reports low back pain in the waist area. Pt reports was picking up grandson and heard a crack and has had pain ever since. This occurred 21/2-3 months ago. Pt is offered apt today in [facility] but, declines unable to come today. Pt is offered apt tuesday morning but declines because apt is too early in the morning. Pt is given home care advise to apply ice/heat to area for relief of pain and tylenol/ibuprofen as well. Pt is advised to call back morning when [facility] schedule opens for possible apt then in the afternoon. Pt agrees with this disposition and home care advised. Protocol Used: Back Injury (Adult) Protocol-Based Disposition: Home Care Positive Triage Question: * Back pain or stiffness from bending or twisting injury * All higher-acuity triage questions were negative Care Advice Discussed: * Reassurance and Education - Bending or Twisting Injury (Strain, Sprain) * Use a Cold Pack for Pain, Swelling, or Bruising * Use Heat on Area After 48 Hours * Rest vs. Movement * Reasons To Call Back - Severe pain lasts over 2 hours after pain medicine and ice - Swelling or bruise becomes over 4 inches (10 cm; more than size of palm). - Pain not improving after 3 days - Pain or swelling lasts over 7 days - You become worse * Telephone Encounter - Courtney Aguila - 04/18/2024 1:42 PM EST Symptom: Hip Pain - Not From Injury Outcome: Schedule an appointment to be seen within 24 hours Reason: Caller denied all higher acuity questions Would like Xray done documented in this encounter Plan of Treatment Upcoming Encounters Date Type Department Care Team (Late st Contact Info) Description 01/24/2025 11:00 AM EDT Office Visit [facility] MED & PEDS [address] [place] [address] Kristin Todd MD [address] [place] [address] documented as of this encounter Visit Diagnoses Not on filedocumented in this encounter Additional Health Concerns Assessment Noted Time PHQ-9 Depression Total Score: 5 10/20/19 24 11:56 AM EDT documented as of this encounter Care Teams Demurrage Clerk Relationship Specialty Start Date End Date Kristin Todd MD [address] [place] [address] PCP - General Family Medicine 03/28/18 [facility] 04/01/23 documented as of this encounter
--- OUTSIDE RECORDS SUMMARY | 2025-01-10 13:58 | XMS_ITS | Encounter Summary ---
Author Organization [employer] Address [address] [place] [address] 7 [place] [address] Care Team Providers Care Research Assoc Name Role Phone Kristin Todd MD Primary Care Provider [phone] Reason for Visit * Reason Comments Med Refill Encounter Details Date Type Department Care Team ([facility] Contact Info) Description 10/27/2023 Refill [facility] CHC MED & PEDS [address] [place] [address] Kristin Todd MD [address] [place] [address] Social History Tobacco Use Types Packs/Day Years [...] Upcoming Encounters Date Type Department Care Team ([facility] st Contact Info) Description 01/24/2025 11:00 AM EDT Office Visit [facility] MED & PEDS [address] [place] [address] Kristin Todd MD [address] [place] [address] documented as of this encounter Visit Diagnoses Not on filedocumented in this encounter Additional Health Concerns Assessment Noted Time PHQ-9 Depression Total Score: 5 10/20/19 11:56 AM EDT documented as of this encounter Care Teams Research Assoc Relationship Specialty Start Date End Date Kristin Todd MD [address] [place] [address] PCP - General Family Medicine 03/28/18 [facility] 04/01/23 documented as of this encounter
--- OUTSIDE RECORDS SUMMARY | 2025-01-10 13:58 | XMS_ITS | Encounter Summary ---
Author Organization [employer] Address [address] [place] [address] 7 [place] [address] Care Team Providers Care Lanolin Plant Operator Name Role Phone Kristin Todd MD Primary Care Provider [phone] Reason for Visit * Reason Comments Med Refill Encounter Details Date Type Department Care Team ([facility] Contact Info) Description 11/25/2023 Refill [facility] CHC MED & PEDS [address] [place] [address] Kristin Todd MD [address] [place] [address] Nausea and vomiting, unspecified vomiting type Social History Tobacco Use Types Packs/Day Years [...] Upcoming Encounters Date Type Department Care Team ([facility] st Contact Info) Description 01/24/2025 11:00 AM EDT Office Visit [facility] MED & PEDS [address] [place] [address] Kristin Todd MD [address] [place] [address] documented as of this encounter Visit Diagnoses Diagnosis Nausea and vomiting, unspecified vomiting type documented in this encounter Additional Health Concerns Assessment Noted Time PHQ-9 Depression Total Score: 5 10/20/19 24 11:56 AM EDT documented as of this encounter Care Teams Lanolin Plant Operator Relationship Specialty Start Date End Date Kristin Todd MD [address] [place] [address] PCP - General Family Medicine 03/28/18 [facility] 04/01/23 documented as of this encounter
--- OUTSIDE RECORDS SUMMARY | 2025-01-10 13:58 | XMS_ITS | Encounter Summary ---
Author Organization [employer] Address [address] [facility] 7 [place] [address] Care Team Providers Care Shearing Machine Tender Name Role Phone Kristin Todd MD Primary Care Provider [phone] Reason for Visit * Reason Onset Date Comments Appointment Request 08/18/2023 Encounter Details Date Type Department Care Team ([facility] st Contact Info) Description 08/18/2023 Telephone [facility] MEDICINE [address] [place], [place] [phone] Kristin Todd MD [address] [facility] [place] [address] Appointment Request Social History Tobacco Use Types Packs/Day Years Used Date Smoking Tobacco: Never Passive Smoke Exposure: Never Smokeless Tobacco: Never Depression Answer Date Recorded Patient Health Questionnaire-9 Score 9 04/16/2022 Housing Stability Answer Date Recorded What is your housing situation today? I have brian dax 06/02/[address] you li [...] encounter Miscellaneous Notes * Telephone Encounter - Luann Santos RN - 08/25/2023 2:50 PM EDT Returned call to pt regarding missed HDF. Pt agrees to HDF on 09/13/23. * Telephone Encounter - Todd Chowdary - 08/18/2023 9:34 AM EDT Tc from pt requesting to reschedule today's HDF visit. Please contact pt at [phone] Emirati Speaker (Accepted Information Management Specialist) documented in this encounter Plan of Treatment Upcoming Encounters Date Type Department Care Team (Late st Contact Info) Description 01/24/2025 11:00 AM EDT Office Visit [facility] MED & PEDS [address] [place] [address] Kristin Todd MD [address] [place] [address] documented as of this encounter Visit Diagnoses Not on filedocumented in this encounter Additional Health Concerns Assessment Noted Time PHQ-9 Depression Total Score: 9 04/16/19 23 9:38 AM EST documented as of this encounter Care Teams Shearing Machine Tender Relationship Specialty Start Date End Date Kristin Todd MD [address] [place] [address] PCP - General Family Medicine 03/28/18 [facility] 04/01/23 documented as of this encounter
--- OUTSIDE RECORDS SUMMARY | 2025-01-10 13:58 | XMS_ITS | Encounter Summary ---
Author Organization [employer] Address [address] [facility] 7 [place] [address] Care Team Providers Care Tobacco Primer Machine Operator Name Role Phone Kristin Todd MD Primary Care Provider [phone] Reason for Visit * Reason Onset Date Comments Referral 11/05/2024 Encounter Details Date Type Department Care Team ([facility] st Contact Info) Description 11/05/2024 Telephone C [facility]S [address] [place] [address] Kristin Todd MD 505 [place] [address] Referral Social History Tobacco Use Types Packs/Day [...] that Mammogram screening referral be sent to [facility] [address] [place] [phone] , instead of where it was originally faxed too. Contact Pt at [phone] (sudanese) documented in this encounter Plan of Treatment Upcoming Encounters Date Type Department Care Team ([facility] st Contact Info) Description 01/24/2025 11:00 AM EDT Office Visit [facility] CHC MED & PEDS [address] [place] [address] Kristin Todd MD [address] [place] [address] documented as of this encounter Visit Diagnoses Not on filedocumented in this encounter Additional Health Concerns Assessment Noted Time PHQ-9 Depression Total Score: 6 06/15/19 25 2:37 PM EDT documented as of this encounter Care Teams Tobacco Primer Machine Operator Relationship Specialty Start Date End Date Kristin Todd MD 505 [place] [address] PCP - General Family Medicine 03/28/18 Fabby [facility] 04/01/23 documented as of this encounter
--- OUTSIDE RECORDS SUMMARY | 2025-01-10 13:58 | XMS_ITS | Encounter Summary ---
Author Organization [employer] Address [address] [place] [address] Care Team Providers Care Toy Department Manager Name Role Phone Kristin Todd MD Primary Care Provider [phone] Reason for Visit * Reason Onset Date Comments Hospital Follow-up 07/18/2023 Encounter Details Date Type Department Care Team ([facility] st Contact Info) Description 07/18/2023 Telephone [facility] CHC MED & PEDS [address] [place] [address] Kristin Todd MD [address] [place] [address] Hospital Follow-up Social History Tobacco Use Types Packs/Day Years Used Date Smoking Tobacco: Never Passive Smoke Exposure: Never Smokeless Tobacco: Never Depression Answer Date Recorded Patient Health Questionnaire-9 Score 9 04/16/2022 Housing Stability Answer Date Recorded What is your housing situation today? I have brianramu verduzco 06/02/[address] you [...] encounter Miscellaneous Notes * Telephone Encounter - Yelena Blackburn - 07/18/2023 11:17 AM EDT Tc from Angela (sister in law) requesting a HDF appt. Hospital: [facility] Date of admission: 07/12 Discharge date: 07/15 Diagnosed: Hyponatremia , DAVID , Liver cirrhosis secondary to MALDONADO Please contact sister in law at [phone] documented in this encounter Plan of Treatment Upcoming Encounters Date Type Department Care Team (Late st Contact Info) Description 01/24/2025 11:00 AM EDT Office Visit [facility] CHC MED & PEDS [address] [place] [address] Kristin Todd MD [address] [place] [address] documented as of this encounter Visit Diagnoses Not on filedocumented in this encounter Additional Health Concerns Assessment Noted Time PHQ-9 Depression Total Score: 9 04/16/19 23 9:38 AM EST documented as of this encounter Care Teams Toy Department Manager Relationship Specialty Start Date End Date Kristin Todd MD [address] [place] [address] PCP - General Family Medicine 03/28/18 Fabby Molina 04/01/23 documented as of this encounter
--- OUTSIDE RECORDS SUMMARY | 2025-01-10 13:58 | XMS_ITS | Encounter Summary ---
Author Organization [employer] Address [address] [place] [address] 7 [place] [address] Care Team Providers Care Guidance Counselor Name Role Phone Kristin Todd MD Primary Care Provider [phone] Encounter Details Date Type Department Care Team ([facility] Contact Info) Description 05/06/[address] [facility] MEDICINE [address] [place] [address] Kristin Todd MD [address] [place], [place] [phone] Social History Tobacco Use Types Packs/Day Years [...] Orientation Straight 01/25/2022 10 :20 AM EDT COVID-19 Exposure Response Date Recorded In the last 10 days, have yo u been in contact with someone who was confirmed or suspected to have Coronavirus/COVID-19? No / Unsure 04/16/2022 9:00 AM EST documented as of this encounter Plan of Treatment Upcoming Encounters Date Type Department Care Team ([facility] Contact Info) Description 01/24/2025 11:00 AM EDT Office Visit [facility] CHC MED & PEDS [address] [place] [address] Kristin Todd MD 505 [place] [address] documented as of this encounter Visit Diagnoses Not on filedocumented in this encounter Additional Health Concerns Assessment Noted Time PHQ-9 Depression Total Score: 9 04/16/19 23 9:38 AM EST documented as of this encounter Care Teams Guidance Counselor Relationship Specialty Start Date End Date Kristin Todd MD [address] [place] [address] PCP - General Family Medicine 03/28/18 Fabby [facility] 04/01/23 documented as of this encounter
--- OUTSIDE RECORDS SUMMARY | 2025-01-10 13:58 | XMS_ITS | Encounter Summary ---
Author Organization [employer] Address [address] [place] [address] 7 [place] [address] Care Team Providers Care Supervisor Inspection And Testing Name Role Phone Kristin Todd MD Primary Care Provider [phone] Encounter Details Date Type Department Care Team ([facility] Contact Info) Description 05/06/2022 Abstract [facility] MEDICINE [address] [place] [address] Kristin Todd MD 505 [place], [place] [phone] Social History Tobacco Use Types Packs/Day Years [...] Upcoming Encounters Date Type Department Care Team ([facility] Contact Info) Description 01/24/2025 11:00 AM EDT Office Visit [facility] CHC MED & PEDS [address] [place] [address] Kristin Todd MD 505 [place] [address] documented as of this encounter Visit Diagnoses Not on filedocumented in this encounter Additional Health Concerns Assessment Noted Time PHQ-9 Depression Total Score: 9 04/16/19 23 9:38 AM EST documented as of this encounter Care Teams Supervisor Inspection And Testing Relationship Specialty Start Date End Date Kristin Todd MD 505 [place] [address] PCP - General Family Medicine 03/28/18 Fabby [facility] 04/01/23 documented as of this encounter
--- OUTSIDE RECORDS SUMMARY | 2025-01-10 13:58 | XMS_ITS | Encounter Summary ---
Author Organization [employer] Address [address] [place] [address] 7 [place] [address] Care Team Providers Care Hose Suspender Cutter Name Role Phone Kristin Todd MD Primary Care Provider [phone] Reason for Visit * Reason Onset Date Comments Hospital Follow-up 04/05/2022 Encounter Details Date Type Department Care Team ([facility] st Contact Info) Description 04/05/2022 Telephone C [facility] MED [facility] PEDS [address] [place] [address] Kristin Todd MD [address] [place] [address] Hospital Follow-up Social History Tobacco Use Types [...] encounter Miscellaneous Notes * Telephone Encounter - Emilee Medellin RN - 04/05/2022 1:48 PM EST [facility] discharge notes reviewed. Pt was recently discharge from [facility] for acute urinary retention. Also pt's INR is due to be recheck on 04/07/21. RN called pt for status check with pt's daughter as an hourly sales staff. Reports pt is doing well and that pt has a francisco catheter in place which had a streak of blood noted this morning. States pt now has a clear yellow urine. Pt and the daughter is aware that VNA nurse will be in the home to get INR done on 04/07/22. Denies any concerns at this time. HDF appt scheduled with PCP. Pt and daughter verbalizes understanding and agrees to plan. * Telephone Encounter - Klaudia Cadena - 04/05/2022 11:50 AM EST Patient calling for HDF follow up appointment. Patient hospitalized at [facility] and discharged on 04-04-22 Patient advised will forward to team nurse for follow up and appointment scheduling. documented in this encounter Plan of Treatment Upcoming Encounters Date Type Department Care Team (Late st Contact Info) Description 01/24/2025 11:00 AM EDT Office Visit [facility] MED & PEDS [address] [place] [address] Kristin Todd MD [address] [place] [address] documented as of this encounter Visit Diagnoses Diagnosis Acute venous embolism and thrombosis of deep vessels of distal lower extremity, unspecified laterality (HCC) Nausea and vomiting, unspecified vomiting type documented in this encounter Care Teams Hose Suspender Cutter Relationship Specialty Start Date End Date Kristin Todd MD [address] [place] [address] PCP - General Family Medicine 03/28/18 Fabby Molina 04/01/23 documented as of this encounter
--- OUTSIDE RECORDS SUMMARY | 2025-01-10 13:58 | XMS_ITS | Encounter Summary ---
Author Organization [employer] Address [address] [place] [address] 7 [place] [address] Care Team Providers Care Subassemblies Wirer Name Role Phone Kristin Todd MD Primary Care Provider [phone] Encounter Details Date Type Department Care Team (Late Contact Info) Description 06/15/2022 Orders Only [facility] CHC MED & PEDS [address] [place], [place] [phone] CoyMorales Menard MD [address] [place] [address] Chronic deep vein thrombosis (DVT) of lower extremity, unspecified laterality, unspecified vein (CMS/HCC) (Primary Dx) Social History Tobacco Use Types Packs/Day Years [...] suspected to have Coronavirus/COVID-19? No / Unsure 06/17/2022 11:02 AM EDT documented as of this encounter Plan of Treatment Upcoming Encounters Date Type Department Care Team (Late Contact Info) Description 01/24/2025 11:00 AM EDT Office Visit [facility] CHC MED & PEDS [address] [place] [address] Kristin Todd MD [address] [place] [address] documented as of this encounter Procedures Procedure Name Priority Date/Time Associated Diagnosis Comments PROTHROMBIN TIME-INR Routine 06/15/2022 2:42 PM EDT Chronic deep vein thrombosis (DVT) of lower extremity, unspecified laterality, unspecified vein (CMS/HCC) documented in this encounter Results * (ABNORMAL) Prothrombin Time-INR (06/15/2022 2:42 PM EDT) INR 1.2(H) [employer] Comment: Reference Range 0.9-1.1 Moderate-intensity Warfarin Therapy 2.0-3.0 Higher-intensity Warfarin Therapy 3.0-4.0 Prothrombin Time 11.9(H) 9.0 - 11.5 sec [employer] Comment: For additional information, please refer to http://education.[employer]/faq/JVG799 (This link is being provided for informational/ educational purposes only.) Blood Venous blood specimen / Unknown 06/15/2022 2:42 PM EDT 06/15/2022 2:43 PM EDT Morales Lundberg MD LAB BLOOD ORDERABL ES Final Result [facility] [address], [place] [address] [employer] [address] [place] [address] documented in this encounter Visit Diagnoses Diagnosis Chronic deep vein thrombosis (DVT) of lower extremity, unspecified laterality, unspecified vein (HCC)- Primary documented in this encounter Additional Health Concerns Assessment Noted Time PHQ-9 Depression Total Score: 9 04/16/19 23 9:38 AM EST documented as of this encounter Care Teams Subassemblies Wirer Relationship Specialty Start Date End Date Kristin Todd MD [address] [place] [address] PCP - General Family Medicine 03/28/18 Fabby Molina 04/01/23 documented as of this encounter
--- OUTSIDE RECORDS SUMMARY | 2025-01-10 13:58 | XMS_ITS | Encounter Summary ---
Author Organization [employer] Address [address] [facility] 7t [place] [address] Care Team Providers Care Flatbed Stitcher Name Role Phone Kristin Todd MD Primary Care Provider [phone] Encounter Details Date Type Department Care Team ([facility] Contact Info) Description 02/24/2023 Telephone [facility] CHC MED & PEDS [address] [place] [address] Kristin Todd MD [address] [place], [place] [phone] Social History Tobacco Use Types Packs/Day Years [...] Description 01/24/2025 11:00 AM EDT Office Visit [facility] MED & PEDS [address] [place] [address] Kristin Todd MD [address] [place] [address] documented as of this encounter Visit Diagnoses Not on filedocumented in this encounter Additional Health Concerns Assessment Noted Time PHQ-9 Depression Total Score: 9 04/16/19 23 9:38 AM EST documented as of this encounter Care Teams Flatbed Stitcher Relationship Specialty Start Date End Date Kristin Todd MD [address] [place] [address] PCP - General Family Medicine 03/28/18 Fabby Molina 04/01/23 documented as of this encounter
--- OUTSIDE RECORDS SUMMARY | 2025-01-10 13:58 | XMS_ITS | Clinical Summary ---
Author Organization [facility] Address [address] [facility] [address] [place] [address] Phone Care Team Providers Care Production Helper Name Role Phone Pcp, Unknown Primary Care [...] 10/01/2021 ZOSTER VACCINES (1 of 2) 10/01/2021 INFLUENZA VACCINE (#1) 2024 COVID-19 VACCINE ( - 2024-2 6 season) 2024 RSV VACCINE (1 - 1-dose 75+ series) 10/01/2046 HEPATITIS A VACCINES Aged Out No long [...] Devices Not on file Insurance Care Teams Production Helper Relationship Specialty Start Date End Date Pcp, Unknown PCP - General 12/29/22 Additional Source Comments The information contained in this document represents components of the legal health record. It is not the complete legal health record.[facility]
--- OUTSIDE RECORDS SUMMARY | 2025-01-10 13:58 | XMS_ITS | Encounter Summary ---
Author Organization [employer] Address [address] [facility] 7 [place] [address] Care Team Providers Care Jawbone Breaker Name Role Phone Kristin Todd MD Primary Care Provider [phone] Reason for Visit * Reason Onset Date Comments Referral 02/16/2024 Encounter Details Date Type Department Care Team ([facility] st Contact Info) Description 02/16/2024 Telephone [facility] MEDICINE [address] [place], [place] [phone] Kristin Todd MD [address] [facility] [address] [place] [address] Referral Social History Tobacco Use Types Packs/Day [...] where. They advised to refer pt to [facility]. If any questions you can contact Efren at [phone]. documented in this encounter Plan of Treatment Upcoming Encounters Date Type Department Care Team (Late st Contact Info) Description 01/24/2025 11:00 AM EDT Office Visit [facility] CHC MED & PEDS [address] [place] [address] Kristin Todd MD [address] [place] [address] documented as of this encounter Visit Diagnoses Not on filedocumented in this encounter Additional Health Concerns Assessment Noted Time PHQ-9 Depression Total Score: 5 10/20/19 24 11:56 AM EDT documented as of this encounter Care Teams Jawbone Breaker Relationship Specialty Start Date End Date Kristin Todd MD [address] [place] [address] PCP - General Family Medicine 03/28/18 Fabby Molina 04/01/23 documented as of this encounter
--- OUTSIDE RECORDS SUMMARY | 2025-01-10 13:58 | XMS_ITS | Encounter Summary ---
Author Organization [employer] Address [address] [facility] 7 [place] [address] Care Team Providers Care Nitrocellulose Operator Name Role Phone Kristin Todd MD Primary Care Provider [phone] Reason for Visit * Reason Onset Date Comments FYI 04/09/2024 Encounter Details Date Type Department Care Team ([facility] st Contact Info) Description 04/09/2024 Telephone [facility] MEDICINE [address] [place], [place] [phone] Kristin Todd MD 505 [facility] [place] [address] Social History Tobacco Use Types Packs/Day Years [...] Telephone Encounter - Luann Santos RN - 04/09/2024 1:24 PM EST Noted. Pt VN will advise on INR result when due. * Telephone Encounter - Arcadio Alexander - 04/09/2024 12:00 PM EST Tc from Chuyita with the [facility] stating that pt has to Hold her Blood thinners for 5 days Prior to the Procedure. IF any question contact Chuyita at [phone] Option 3 documented in this encounter Plan of Treatment Upcoming Encounters Date Type Department Care Team ([facility] st Contact Info) Description 01/24/2025 11:00 AM EDT Office Visit [facility] MED & PEDS [address] [place] [address] Kristin Todd MD 505 [place] [address] documented as of this encounter Visit Diagnoses Not on filedocumented in this encounter Additional Health Concerns Assessment Noted Time PHQ-9 Depression Total Score: 5 10/20/19 11:56 AM EDT documented as of this encounter Care Teams Nitrocellulose Operator Relationship Specialty Start Date End Date Kristin Todd MD [address] [place] [address] PCP - General Family Medicine 03/28/18 Fabby Molina 04/01/23 documented as of this encounter
--- OUTSIDE RECORDS SUMMARY | 2025-01-10 13:58 | XMS_ITS | Encounter Summary ---
Author Organization [employer] Address [address] [facility] 7 [place] [address] Care Team Providers Care Water Softener Servicer And Installer Name Role Phone Kristin Todd MD Primary Care Provider [phone] Reason for Visit * Reason Onset Date Comments call back 06/07/2022 Encounter Details Date Type Department Care Team ([facility] st Contact Info) Description 06/07/2022 Telephone [facility] MEDICINE [address] [place] [address] Kristin Todd MD 505 [facility] [place] [address] call back Social History Tobacco Use Types Packs/Day Years [...] encounter Miscellaneous Notes * Telephone Encounter - Anjum Bean - 06/07/2022 2:13 PM EDT Tc from daughter requesting a call back regarding letter requesting to be signed for nursing services at home. Daughter states pt services were cancel. Please contact pt at [phone] documented in this encounter Plan of Treatment Upcoming Encounters Date Type Department Care Team (Late st Contact Info) Description 01/24/2025 11:00 AM EDT Office Visit [facility] MED & PEDS [address] [place] [address] Kristin Todd MD [address] [place] [address] documented as of this encounter Visit Diagnoses Not on filedocumented in this encounter Additional Health Concerns Assessment Noted Time PHQ-9 Depression Total Score: 9 04/16/19 23 9:38 AM EST documented as of this encounter Care Teams Water Softener Servicer And Installer Relationship Specialty Start Date End Date Kristin Todd MD [address] [place] [address] PCP - General Family Medicine 03/28/18 Fabby Molina 04/01/23 documented as of this encounter
--- OUTSIDE RECORDS SUMMARY | 2025-01-10 13:58 | XMS_ITS | Clinical Summary ---
Author Organization [employer] Address [address] [place] [address] [address] [place] [address] Care Team Providers Care Dehydrogenation Converter Helper Name Role Phone Kristin Todd MD Primary Care Provider [phone] Allergies No known active allergies Medications zolpidem (Ambien) 10 MG tablet Take 1 tablet by mouth at bed time. Take 1 tablet by mouth at bed time. Active citalopram (CeleXA) 40 MG tabletIndicatio ns:Schizo-affec tive schizophrenia, chronic condition (CMS/HCC) (HCC) Take 1 tablet (40 mg) by mouth in the morning. Take 1 tablet by mouth 1 (one) time each day. 30 tablet 3 03/09/20 Active cholecalciferol (Vitamin D-3) 50 MCG (1999) capsuleIndicati ons:Acute venous embolism and thrombosis of deep vessels of distal lower extremity, unspecified laterality (HCC) Take 1 capsule (50 mcg) by mouth in the morning and at bedtime. take 1 capsule po bid 30 capsule 3 03/09/20 22 Active Additional Information Patient not taking.Reported on 08/15/2023 benztropine (Cogentin) 0.5 MG tablet TAKE 1 TABLET BY MOUTH TWICE A DAY NEEDED FOR SIDE EFFECTS NEEDED ONLY 03/24/20 22 Active hydrOXYzine pamoate (Vistaril) 25 MG capsule Take 1 capsule by mouth three times a day as needed 03/24/20 22 Active risperiDONE microspheres (RisperDAL Consta) 50 MG injection Inject 2 mL (50 mg) into the shoulder, thigh, or buttocks every 14 (fourteen) days. 2 each 2 06/18/19 23 Active furosemide (Lasix) 40 MG tabletIndicatio ns:Primary hypertension TAKE 1 TABLET BY MOUTH IN THE MORNING. 90 tablet 1 07/16/19 23 Active buPROPion SR (Wellbutrin SR) 200 MG 12 hr tablet Take 1 tablet (200 mg) by mouth 2 times daily. 60 tablet 3 11/09/19 24 Active tamsulosin (Flomax) 0.4 MG 24 hr capsule TAKE 1 CAPSULE BY MOUTH ONCE PER DAY. 90 capsule 01/03/20 24 Active loratadine (Claritin) 10 MG tabletIndicatio ns:Allergy, subsequent encounter Take 1 tablet (10 mg) by mouth Once per day. 90 tablet 2 03/15/20 24 Active spironolactone (Aldactone) 25 MG tabletIndicatio ns:MALDONADO (nonalcoholic steatohepatitis ) Take 1 tablet (25 mg) by mouth 2 times daily. 60 tablet 11 04/11/19 25 2025 Active Diclofenac Sodium 1 % gel Apply small amount to affected joints daily prn pain 200 g 3 04/30/19 25 Active apixaban (Eliquis) 2.5 MG tablet Take 1 tablet (2.5 mg) by mouth 2 times daily. 60 tablet 11 06/15/19 25 Active nystatin (Mycostatin) 731539 UNIT/GM powderIndicatio ns:Nausea and vomiting, unspecified vomiting type APLIQUE AL AREA AFECTADA DOS VECES AL MARIANELA 60 g 11 09/19/19 25 Active Myrbetriq 25 MG 24 hr tablet TOME 1 TABLETA POR V A ORAL TODOS LOS D FOR 30 DAYS 08/28/19 25 Active nitrofurantoin (Macrodantin) 100 MG capsule Take 1 capsule orally bid for 1 week 14 capsule 10/05/19 25 Active midodrine (Proamatine) 10 MG tabletIndicatio ns:Nausea and vomiting, unspecified vomiting type TAKE 1 TABLET BY MOUTH THREE TIMES A DAY 90 tablet 3 10/11/19 25 Active nystatin (Mycostatin) creamIndication s:Nausea and vomiting, unspecified vomiting type Apply topically Once per day. 90 g 11 12/14/19 25 Active ondansetron (Zofran) 4 MG tabletIndicatio ns:Nausea and vomiting, unspecified vomiting type TOME KEESHA TABLETA ORALMENTE DOS VECES AL MARIANELA CUANDO SEA NECESARIO PARA NAUSEAS 60 tablet 3 01/01/20 Active ondansetron (Zofran) 4 MG tabletIndicatio ns:Nausea and vomiting, unspecified vomiting type TOME 1 TABLETA POR VIA ORAL DOS VECES AL MARIANELA CUANDO SEA NECESARIO PARA LAS NAUSEAS 60 tablet 3 06/23/19 25 2024 Discontinued(R eorder (will not trigger notification to Pharmacy)) nystatin (Mycostatin) creamIndication s:Nausea and vomiting, unspecified vomiting type APLIQUE AL AREA AFECTADA DOS VECES AL MARIANELA 90 g 11 09/19/19 25 2024 Discontinued(R eorder (will not trigger notification to Pharmacy)) chlorhexidine (Peridex) 0.12 % solution Use 15 mL in the mouth or throat if needed for wound care for up to 14 days. 473 mL 11 12/14/192024 Hospital, Clinic, or Other Facility Administered Medication Ordered Dose Route Frequency Start Date End Date Status risperiDONE microspheres (RisperDAL Consta) injection 50 mgIndications:Schizophren ia 50 mg IM Every 14 days 06/19/2022 Active Active Problems Patient Care Coordination No te Formatting of this note migh t be different from the original. C3/CM Alva Dejesus RN C3CM/CHW Lety Blackburn Problem Noted Date Diagnosed Date H/O blood clots 12/13/2024 Nausea and vomiting 12/13/2024 Lumbar back pain 11/14/2023 Assessment & Plan (11/14/2023 2:58 PM EDT): Prescribing Tylenol and topical Diclofenac for Sx. Ordering XR of Lumbar for further evaluation. Relevant Medications Acetaminophen (Tylenol Extra Strength) 500 mg Tablet Diclofenac Sodium 1% gel Fall 11/14/2023 Assessment & Plan (11/14/2023 2:59 PM EDT): Ordering CT of head per request of Pt due to fall for further evaluation. MALDONADO (nonalcoholic steatohepatitis) 07/27/2023 Obstructive uropathy 03/22/2023 Assessment & Plan (03/22/2023 2:04 PM EST): Patient was discharged with a francisco catheter, unclear if they had voiding trial, unclear in discharge summary, per patient already has an appt with urology on 03/25/23 at 9 AM with a [facility] provider, but does not recall name/location. Reports did have some hematuria. Not currently. Atypical ductal hyperplasia of breast 04/18/2022 Deep venous thrombosis 02/26/2022 Lymphedema, not elsewhere classified 05/28/2021 Assessment & Plan (03/22/2023 2:00 PM EST): Upon visit, patient requested a referral to Podiatry due to Lymphedema, therefore, a referral will be provided. Chronic radiation cystitis 04/10/2020 Carcinoma of cervix ([facility]/HCC) 06/26/2015 Severe obesity (CMS/HCC) 12/24/2011 Schizophrenia 08/26/2011 Resolved Problems Problem Noted Date Diagnosed Date Resolved Date Chronic deep vein thrombosis (DVT) of lower extremity, unspecified laterality, unspecified vein 03/17/2022 06/15/2024 Encounters Date Type Department Care Team Description 01/03/2025 Telephone [facility] [address] [place] [address] Kristin Todd MD No Show 01/02/2025 Telephone [facility] [address] [place] [address] Kristin Todd MD Chart Prep 12/31/2024 Refill [facility] [address] [place] [address] Kristin Todd MD Nausea and vomiting, unspecified vomiting type 12/13/2024 2:15 PM EDT Office Visit [facility] [address] [place] [address] Kristin Todd MD MALDONADO (nonalcoholic steatohepatitis) (Primary Dx); Chronic radiation cystitis; Carcinoma of cervix ([facility]/HCC); Other schizophrenia ([facility]/HCC); H/O blood clots; Routine general medical examination at a health care facility; Nausea and vomiting, unspecified vomiting type; Sprain of temporomandibular joint, subsequent encounter 12/13/2024 Telephone [facility] [address] [place] [address] Kristin Todd MD mammo appt 12/13/2024 Travel 12/12/2024 Telephone [facility] [address] [facility] [place] [address] Kristin Todd MD Chart Prep 12/10/2024 Orders Only GENERIC EXTERNAL DATA DEPARTMENT Provider, Generic External Data 12/06/2024 Patient Outreach [facility] [address] [place] [address] Kristin Todd MD Pre-visit Planning (SDOH screening completed on 06/14/24) 11/06/2024 Orders Only [facility] [address] [facility] [place] [address] Kristin Todd MD Breast cancer screening by mammogram (Primary Dx) 11/05/2024 Telephone [facility] [address] [facility] [place] [address] Kristin Todd MD Referral 10/19/2024 Telephone [facility] [address] [facility] [place] [address] Kristin Todd MD requesting call back 10/12/2024 Telephone [facility] [address] [facility] [place] [address] Kristin Todd MD Results from Last 3 Months Immunizations Immunization Administration Dates Next Due Hep B, adult 04/07/2023,01/20/2023 Influenza injectable quadriv alent IIV4 with preservative 01/19/2018,01/27/2017,12/23/2015 Influenza injectable quadriv alent preservative free 12/23/2022,01/22/2021,04/28/2020,12/21,01/15/2015 Influenza, IIV3, injectable 01/22/2021,0 04/28/2020,12/21/2018,01/19,01/27/2017,12/23/2015,01/15/2015 ,12/04/2013 Influenza, Split (incl. mago fied surface antigen) 01/19/2013,12/24/2011 Influenza, Unspecified 12/04/2013 Pneumococcal Polysaccharide PPSV23 03/18/2015 TD (adult), 2 Lf tetanus tox oid, preservative free, adsorbed 01/27/2017 Td (adult), unspecified 01/27/2017 Tdap 12/21/2018 Social History Tobacco Use Types Packs/Day Years Used Date Smoking Tobacco: Never Passive Smoke Exposure: Never Smokeless Tobacco: Never Tobacco Cessation:Counseling Given: Not Answered Depression Answer Date Recorded Patient Health Questionnaire-9 [...] Orientation Straight 01/25/2022 10 :20 AM EDT Last Filed Vital Signs Vital Sign Reading Time Taken Comments Blood Pressure 122/74 12/13/2024 1:21 PM EDT Pulse 76 12/13/2024 1:21 PM EDT Temperature 37.2 C (99 F) 12/13/2024 1:21 PM EDT Respiratory Rate 20 12/13/2024 1:21 PM EDT Oxygen Saturation 98% 03/15/2024 1:30 PM EST Inhaled Oxygen Concentration - - Weight 109 kg (241 lb) 12/13/2024 1:21 PM EDT Height 157.5 cm (5' 2 ) 12/13/2024 1:21 PM EDT Body Mass Index 44.08 12/13/2024 1:21 PM EDT Plan of Treatment Upcoming Encounters Date Type Department Care Team (Late st Contact Info) Description 01/24/2025 11:00 AM EDT Office Visit [facility] [address] [place], [place] [id number] Kristin Todd MD [address] [place] [address] Health Maintenance Due Date Last Done Comments CT Colonography 1971 FIT DNA/Cologuard 1971 FIT 1971 FOBT 1971 HIV Screening 1971 Lipid Panel 1971 Sigmoidoscopy 1971 Hepatitis C Screening 10/01/1989 Hepatitis A Vaccines (1 of 2 - Risk 2-dose series) 10/01/1990 Colonoscopy 11/18/2020 11/19/2015 Colorectal Cancer Screening 11/18/2020 Pneumococcal Vaccine: 50+ Years (2 of 2 - PCV) 10/01/2021 03/18/2015 Zoster Vaccines (1 of 2) 10/01/2021 Hepatitis B Vaccines (3 of 3 - 19+ 3-dose series) 07/22/2023 04/07/2023, 01/20/2023 Mammogram 07/08/2024 07/08/2022, 04/06/2018 COVID-19 Vaccine (1 - 2023- season) 2024 Influenza Vaccine (#1) 2024 , 01/22/2021, 01/22/2021, Additional history exists Alcohol/Substance Use Screening 06/14/2025 06/14/2024 Depression Screening 06/14/2025 06/14/2024, 06/15/19 Disability Screening 06/14/2025 06/14/2024 SDOH Screening 06/14/2025 06/14/2024 Tobacco Screening 10/04/2025 10/04/2024 Cervical Cancer Screening 12/24/2026 HPV/Cotest 12/24/2026 12/24/2021 Pap Smear 12/24/2026 12/24/2021 DTaP/Tdap/Td Vaccines (2 - Td or Tdap) 12/21/2028 12/21/2018, 01/27/2017, 01/27/2017 RSV Patients and Patients Aged 60 years or older (1 - 1-dose 75+ series) 10/01/2046 HIB Vaccines Aged Out No longer eligi ble based on patient's age to complete this topic HPV Vaccines Aged Out No longer eligi ble based on patient's age to complete this topic IPV Vaccines Aged Out No longer eligi ble based on patient's age to complete this topic Meningococcal B Vaccine Aged Out No l onger eligible based on patient's age to complete this topic Meningococcal Vaccine Aged Out No qing jeanna eligible based on patient's age to complete this topic RSV under 20 months Aged Out No longe r eligible based on patient's age to complete this topic Rotavirus Vaccines Aged Out No longer eligible based on patient's age to complete this topic Procedures Procedure Name Priority Date/Time Associated Diagnosis Comments PROTHROMBIN TIME-INR Routine 12/10/2024 12:49 PM EDT MAMMOGRAPHY Routine 07/08/2022 PAP/HPV Routine 12/24/2021 COLONOSCOPY Routine 11/19/2015 from Last 3 Months or Most Recently Relevant to Health Maintenance Results * (ABNORMAL) Prothrombin Time-INR (12/10/2024 12:49 PM EDT) Prothrombin Time 12.7(H) 10.9 - 12.4 SEC [facility] INTERNATIONAL NORM RATIO 1.1 0.9 - 1.1 [facility] Comment:INTERNATIONAL NORMAL IZED RATIO (INR) REFERENCE RANGES Reference RangeFor patients not on anticoagulant therapy: 0.9 - 1.1INR ranges for oral anticoagulanttherapy:For prevention and treatment of venous thrombosis and pulmonary embolism: 2.0 - 3.0For acute myocardial infarction with aspirin therapy: 2.0 - 3.0For acute myocardial infarction without aspirin therapy: 3.0 - 4.0For patients with mechanical prosthetic heart valves: 2.5 - 3.5 12/10/2024 12:4 9 PM EDT 12/10/2024 12:52 PM EDT Generic External Data Provider LAB BLOOD ORDERAB LES Final Result [facility] [address] [place] [phone] * Mammography (07/08/2022) Mammogram Bi-rads 2 Anatomical Region Laterality Modality Other Historical Provider HEALTH MAINTENANCE Final Result * Pap Smear (12/24/2021) Pap Negative for intraephithelial lesion or malignancy Negative for intraephithelial lesion or malignancy, Other HPV Undetected Undetected, Indeterminate, Quantitative, Not Detected Result [facility] Historical Provider HEALTH MAINTENANCE Final Result * Colonoscopy (11/19/2015) Colonoscopy Normal Normal Narrative Cassandra Rosas - 11/19/2015 Recommended resuming colonoscopies at age 50 Historical Provider HEALTH MAINTENANCE Final Result from Last 3 Months or Most Recently Relevant to Health Maintenance Insurance [facility] C3 Care Teams Dehydrogenation Converter Helper Relationship Specialty Start Date End Date Kristin Todd MD [address] [place] [address] [place] [address] PCP - General Family Medicine 03/28/18 Fabby Molina 04/01/23
--- OUTSIDE RECORDS SUMMARY | 2025-01-10 13:58 | XMS_ITS | Encounter Summary ---
Author Organization [employer] Address [address] [facility] 7 [place] [address] Care Team Providers Care Substation Supervisor Name Role Phone Kristin Todd MD Primary Care Provider [phone] Encounter Details Date Type Department Care Team ([facility] st Contact Info) Description 03/07/2024 Orders Only [facility] [address] [place] [address] Kristin Todd MD [address] [place] [address] Social History Tobacco Use Types Packs/Day Years [...] Description 01/24/2025 11:00 AM EDT Office Visit [facility] [address] [place] [address] Kristin Todd MD [address] [place] [address] documented as of this encounter Visit Diagnoses Not on filedocumented in this encounter Additional Health Concerns Assessment Noted Time PHQ-9 Depression Total Score: 5 10/20/19 24 11:56 AM EDT documented as of this encounter Care Teams Substation Supervisor Relationship Specialty Start Date End Date Kristin Todd MD [address] [place] [address] PCP - General Family Medicine 03/28/18 Fabby Molina 04/01/23 documented as of this encounter
--- OUTSIDE RECORDS SUMMARY | 2025-01-10 13:58 | XMS_ITS | Encounter Summary ---
Author Organization [employer] Address [address] [place] [address] [place] [address] Care Team Providers Care Rag Grader Name Role Phone Kristin Todd MD Primary Care Provider Reason for Visit * Reason Onset Date Comments requesting call back 10/19/2024 Encounter Details Date Type Department Care Team ([facility] st Contact Info) Description 10/19/2024 Telephone [facility] [address] [place] [address] Kristin Todd MD [address] [place] [address] requesting call back Social History Tobacco Use Types [...] encounter Miscellaneous Notes * Telephone Encounter - Eric Dunn - 10/19/2024 11:44 AM EDT Tc from pt requesting a call back from nurse to report of the pt has arthritis or not. Contact pt at [phone] documented in this encounter Plan of Treatment Upcoming Encounters Date Type Department Care Team (Late st Contact Info) Description 01/24/2025 11:00 AM EDT Office Visit [facility] [address] [place] [address] Kristin Todd MD [address] [place] [address] documented as of this encounter Visit Diagnoses Not on filedocumented in this encounter Additional Health Concerns Assessment Noted Time PHQ-9 Depression Total Score: 6 06/15/19 2:37 PM EDT documented as of this encounter Care Teams Rag Grader Relationship Specialty Start Date End Date Kristin Todd MD [address] [place] [address] PCP - General Family Medicine 03/28/18 Fabby Molina 04/01/23 documented as of this encounter
--- OUTSIDE RECORDS SUMMARY | 2025-01-10 13:58 | XMS_ITS | Encounter Summary ---
Author Organization [employer] Address [address] [facility] 7 [place] [address] Care Team Providers Care Final Finisher Forging Dies Name Role Phone Kristin Todd MD Primary Care Provider [phone] Reason for Visit * Reason Onset Date Comments Nurse Triage 09/03/2024 Encounter Details Date Type Department Care Team ([facility] st Contact Info) Description 09/03/2024 Telephone [facility] [address] [place], [place] [phone] Kristin Todd MD [address] [facility] [place] [address] Nurse Triage Social History Tobacco Use Types [...] Telephone Encounter - Miri Valdivia RN - 09/03/2024 1:36 PM EDT Triage call with [facility] District [facility] District Office Director ID Alana Nichols Pt reports was seen in urologist office 08/27/24 and had francisco catheter changed at that appointment. Pt reports today some blood tinged urine is present. Neg for other sx . Pt is offered to come to [facility] today to be seen but declines reports only wants to be seen in [facility] where Pt always goes . ASK apt with KEMAR Brink 09/05/24 @ 300pm. Pt agrees with this disposition. Insurance is verified as active prior to booking. Ptis advised to drink 6-8 glasses liquid daily. Protocol Used: Urinary Catheter (e.g., Francisco) Symptoms and Questions (Adult) Protocol-Based Disposition: See in Office or Video Visit within 3 Days Positive Triage Question: * Patient wants to be seen * All higher-acuity triage questions were negative Care Advice Discussed: * Drink Plenty of Liquids * Reasons To Call Back - Fever over 100.4 F (38.0 C) - Abdomen pain occurs - You become worse * Telephone Encounter - Todd Chowdary - 09/03/2024 1:03 PM EDT Symptom: Vaginal Bleeding - Not Outcome: Schedule an appointment to be seen within 24 hours Reason: Caller denied all higher acuity questions Please contact pt at [phone]. (Mexican Speaker) documented in this encounter Plan of Treatment Upcoming Encounters Date Type Department Care Team ([facility] st Contact Info) Description 01/24/2025 11:00 AM EDT Office Visit [facility] [address] [place] [address] Kristin Todd MD [address] [place] [address] documented as of this encounter Visit Diagnoses Not on filedocumented in this encounter Additional Health Concerns Assessment Noted Time PHQ-9 Depression Total Score: 6 06/15/19 25 2:37 PM EDT documented as of this encounter Care Teams Final Finisher Forging Dies Relationship Specialty Start Date End Date Kristin Todd MD [address] [place] [address] PCP - General Family Medicine 03/28/18 Fabby Molina 04/01/23 documented as of this encounter
--- OUTSIDE RECORDS SUMMARY | 2025-01-10 13:58 | XMS_ITS | Clinical Summary ---
Author Organization [facility] Address [address] [place] [address] Care Team Providers Care Optical Store Manager Name Role Phone Kristin Todd Primary Care Provider [phone] Allergies No known active allergies Medications Wellbutrin SR 200 mg tablet SMARTSI Tablet(s) By Mouth Twice Daily 3 Active omeprazole (PriLOSEC) 20 mg capsule SMARTSI Capsule(s) By Mouth Daily 3 Active zolpidem (AMBIEN) 10 mg tablet SMARTSI Tablet(s) By Mouth Every Night PRN Active citalopram (CeleXA) 40 mg tablet SMARTSI Tablet(s) By Mouth Every Morning Active nystatin 100,000 unit/gram cream Apply topically to the affected area 2 times daily. 3 Active nystatin (MYCOSTATIN) 100,000 unit/gram powder SMARTSIG:Topical Twice Daily Active risperiDONE microspheres (RisperDAL CONSTA) 50 mg/2 mL IM injection Inject 50 mg into the shoulder, thigh, or buttocks muscle as directed every 14 (fourteen) days. 3 Active benztropine (COGENTIN) 0.5 mg tablet SMARTSI Tablet(s) By Mouth Twice Daily PRN Active atorvastatin (LIPITOR) 40 mg tablet TOME KEESHA TABLETA POR VIA ORAL AL ACOSTARSE 3 Active loratadine (CLARITIN) 10 mg tablet TOME KEESHA TABLETA TODOS LOS D Active hydrOXYzine (VISTARIL) 25 mg capsule SMARTSI Capsule(s) By Mouth 3 Times Daily PRN Active ondansetron (ZOFRAN) 4 mg tablet TAKE 1 TABLET BY MOUTH EVERY 8 HOURS NEEDED FOR NAUSEA OR VOMITING 3 Active acetaminophen (TYLENOL) 500 mg tablet SMARTSI Tablet(s) By Mouth Every 8 Hours PRN Active warfarin (COUMADIN) 3 mg tablet SMARTSI-2 Tablet(s) By Mouth Daily Active warfarin (COUMADIN) 5 mg tablet SMARTSI-2 Tablet(s) By Mouth Daily Active warfarin (COUMADIN) 6 mg tablet SMARTSI Tablet(s) By Mouth Daily Active polyethylene glycol (COLYTE) solutionIndicati ons:Screen for colon cancer OK to substitute Colyte/ Gavelyte/ Golytly/ Nulyte. Take according to instructions provided by physician. 4000 mL 3 Active warfarin (COUMADIN) 4 mg tablet SMARTSI-2 Tablet(s) By Mouth Daily Active triamcinolone (KENALOG) 0.025 % ointment SMARTSIG:Topical Twice Daily Active spironolactone (ALDACTONE) 25 mg tablet Take 1 tablet (25 mg total) by mouth once a day. 4 Active furosemide (LASIX) 20 mg tablet Take 1 tablet (20 mg total) by mouth once a day. 4 Active Active Problems No known active problems Social History Tobacco Use Types Packs/Day Years Used Date Smoking Tobacco: Former Cigarettes Smokeless Tobacco: Never Alcohol Use Standard Drinks/Week Comments Never 0 (1 standard drink = 0.6 oz pur e alcohol) Comments Unknown Sex and Gender Information Value Date Recorded Sex Assigned at Female 03/30/2023 8:58 AM EST Legal Sex Female 4:16 PM EDT Gender Identity Not on file Sexual Orientation Not on file Last Filed Vital Signs Vital Sign Reading Time Taken Comments Blood Pressure 128/81 06/14/2023 4:00 PM EDT Pulse 98 06/14/2023 4:00 PM EDT Temperature 36.1 C (97 F) 06/14/2023 4:00 PM EDT Respiratory Rate 20 06/14/2023 4:00 PM EDT Oxygen Saturation 94% 06/14/2023 4:00 PM EDT Inhaled Oxygen Concentration - - Weight 105 kg (231 lb 7.7 oz) 06/14/2023 4:00 PM EDT Height 160 cm (5' 3 ) 01/18/2023 1:07 PM EDT Body Mass Index 41.01 01/18/2023 1:07 PM EDT Plan of Treatment Health Maintenance Due Date Last Done Comments Cervical Cancer Screening 1971 Cologuard 1971 Colonoscopy 1971 HPV and Pap Smear 1971 Pap Smear 1971 Sigmoidoscopy 1971 Mammogram 04/06/2020 04/06/2018 Pneumococcal Vaccine: 50+ Ye ars (2 of 2 - PCV) 10/01/2021 03/18/2015 Zoster Vaccines (1 of 2) 10/01/2021 Hepatitis B Vaccines (3 of 3 - 19+ 3-dose series) 07/22/2023 04/07/2023, 01/20/2023 Colon Cancer Screening 12/24/2023 FOBT / Fit Test 12/24/2023 12/23/2022 CT Lung Cancer Screening (Baseline) 01/08/2024 01/07/2023 Alcohol/Substance Use Screening 03/28/2024 Depression Screening and Follow-Up 03/28/2024 Social Drivers of Health Carlota ual Screening 03/28/2024 COVID-19 Vaccine (1 - 2024-2 6 season) 2024 Influenza Vaccine (#1) 2024 , 01/22/2021, 01/22/2021, Additional history exists Basic Metabolic Panel 06/14/2025 06/14/2024 , 06/14/2023, 05/26/2023, Additional history exists DTaP,Tdap,and Td Vaccines (2 - Td or Tdap) 12/21/2028 12/21/2018, 01/27/2017, 01/27/2017 RSV Vaccine (60+ years old a nd patients) (1 - 1-dose 75+ series) 10/01/2046 HIV Screening Completed 01/18/2023 Hepatitis C Screening Completed 01/18/2023 Procedures * Due to [place] state law, this organization might not be sharing negative HIV tests. Procedure Name Priority Date/Time Associated Diagnosis Comments COMPREHENSIVE METABOLIC PANEL Routine 06/14/2023 4:59 PM EDT MALDONADO (nonalcoholic steatohepatitis) HEPATITIS C ANTIBODY W/REFLEX TO HCV RNA, QUANTITATIVE PCR Routine 01/18/2023 4:16 PM EDT Encounter for pre-transplant evaluation for liver transplant CT CHEST COMPARISON IMAGES (OUTSIDE STUDY) Routine 01/07/2023 2:20 PM EDT from Last 3 Months or Most Recently Relevant to Health Maintenance Results * Due to [place] state law, this organization might not be sharing negative HIV tests. * (ABNORMAL) Comprehensive Metabolic Panel (06/14/2023 4:59 PM EDT) NA 138 135 - 145 mmol/L 06/14/2023 5:59 PM EDT [facility] K 3.7 3.5 - 5.3 mmol/L 06/14/2023 5:59 PM EDT [facility] Cl 95(L) 97 - 110 mmol/L 06/14/2023 5:59 PM EDT [facility] CO2 35(H) 24 - 32 mmol/L 06/14/2023 5:59 PM EDT [facility] Anion Gap 8 5 - 15 06/14/2023 5:59 PM EDT [facility] Glucose 93 70 - 99 mg/dL 06/14/2023 5:59 PM EDT [facility] Creatinine 0.95 0.50 - 1.20 mg/dL 06/14/2023 5:59 PM EDT [facility] Calcium 9.4 8.7 - 10.7 mg/dL 06/14/2023 5:59 PM EDT [facility] Total Protein 7.5 6.0 - 8.0 g/dL 06/14/2023 5:59 PM EDT [facility] Albumin 4.6 3.5 - 4.8 g/dL 06/14/2023 5:59 PM EDT [facility] Bilirubin, Total 0.5 0.3 - 1.2 mg/dL 06/14/2023 5:59 PM EDT [facility] Alkaline Phosphatase 94 30 - 115 U/L 06/14/2023 5:59 PM EDT [facility] AST 21 10 - 40 U/L 06/14/2023 5:59 PM EDT [facility] ALT 18 10 - 40 U/L 06/14/2023 5:59 PM EDT [facility] BUN 9 7 - 23 mg/dL 06/14/2023 5:59 PM EDT [facility] eGFR 73 >=60 mL/min/1. 73m2 06/14/2023 5:59 PM EDT [facility] Comment:The estimated glomer ular filtration rate (eGFR) is calculated using a new formula developed by the NKF-ASN task force to eliminate race-based correction factors. The new formula uses serum/plasma creatinine, age, and gender to determine eGFR. A value below 60mls/min might indicate kidney disease and will be flagged. For additional information, see Castillo et al, Am J Kidney Dis. 2021;79(2):268- 288, A Unifying Approach for GFR estimation: Recommendations of the NKF-ASN Task Force on Reassessing the Inclusion of Race in Diagnosing Kidney Disease . Blood Structure of peripheral vein / Unknown Venipuncture / Unknown 06/14/2023 4:59 PM EDT 06/14/2023 5:19 PM EDT Klaus Scott MD LAB BLOOD ORDERABLES Fin al Result [facility] [address] [place] [address], * Hepatitis C Antibody w/Reflex to PCR (01/18/2023 4:16 PM EDT) Hepatitis C Antibody NON-REACT SARAH NON-REACT SARAH 01/19/2023 2:56 AM EDT [facility] Comment: HCV antibody was non-reactive. There is no laboratory evidence of HCV infection. In most cases, no further action is required. However, if recent HCV exposure is suspected, a test for HCV RNA (test code 09873) is suggested. For additional information please refer to http://education.DestinationRX/faq/XEN39k4 (This link is being provided for informational/ educational purposes only.) Blood Structure of peripheral vein / Unknown Venipuncture / Unknown 01/18/2023 4:16 PM EDT 01/18/2023 4:39 PM EDT Narrative [facility] - 01/19/2023 2:56 AM EDT [facility] Received Date:[id number] Klaus Scott MD LAB BLOOD ORDERABLES Fin al Result [facility] [address], [place] [address], [facility] [address], [place] [address], * CT Transfer of Outside Films Chest (01/07/2023 2:20 PM EDT) Narrative [facility] - 01/18/2023 3:54 PM EDT This order has been auto-finalized and does not contain a result. External Radiology IMG CT PROCEDURES Final Resul t from Last 3 Months or Most Recently Relevant to Health Maintenance Insurance [facility] Care Teams Optical Store Manager Relationship Specialty Start Date End Date Kristin Todd [address] [place] [address] PCP - General Internal Medicine 01/21/23
--- OUTSIDE RECORDS SUMMARY | 2025-01-10 13:58 | XMS_ITS | Encounter Summary ---
Author Organization [employer] Address [address] [facility] 7 [place] [address] Care Team Providers Care Certified Ethical Hacker Name Role Phone Kristin Todd MD Primary Care Provider [phone] Reason for Visit * Reason Onset Date Comments Referral 03/30/2023 Encounter Details Date Type Department Care Team ([facility] st Contact Info) Description 03/30/2023 Telephone [facility] MED & PEDS [address] [place] [address] Kristin Todd MD [address] [place] [address] Referral Social History Tobacco Use Types Packs/Day [...] encounter Miscellaneous Notes * Telephone Encounter - Kellie Osborn - 03/31/2023 10:57 AM EST TC to patient, no answer, unable to leave a message. She has to call Dr. 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 * Telephone Encounter - Luann Santos RN - 03/30/2023 3:36 PM EST Hi can this pt just be sent to a different podiatry location or would you need a new referral to process? * Telephone Encounter - Zoe Cruz - 03/30/2023 2:38 PM EST TC from pt requesting for Podiatry referral to be sent to another clinic due to current clinic doctor having an accident and will be out. Please contact pt @ [phone] Macedonian Speaker documented in this encounter Plan of Treatment Upcoming Encounters Date Type Department Care Team ([facility] st Contact Info) Description 01/24/2025 11:00 AM EDT Office Visit [facility] MED & PEDS [address] [place], [place] [phone] Kristin Todd MD [address] [place], [place] [phone] documented as of this encounter Visit Diagnoses Not on filedocumented in this encounter Additional Health Concerns Assessment Noted Time PHQ-9 Depression Total Score: 9 04/16/19 23 9:38 AM EST documented as of this encounter Care Teams Certified Ethical Hacker Relationship Specialty Start Date End Date Kristin Todd MD [address] [place] [address] PCP - General Family Medicine 03/28/18 Fabby Molina 04/01/23 documented as of this encounter
--- OUTSIDE RECORDS SUMMARY | 2025-01-10 13:58 | XMS_ITS | Encounter Summary ---
Author Organization [employer] Address [address] [facility] 7 [place] [address] Care Team Providers Care Behavioral Health Technician Name Role Phone Kristin Todd MD Primary Care Provider [phone] Reason for Visit * Reason Onset Date Comments Nurse Triage 09/07/2022 Encounter Details Date Type Department Care Team ([facility] st Contact Info) Description 09/07/2022 Telephone [facility] CH[facility] MED & PEDS [address] [place] [address] Kristin Todd MD [address] [place] [address] Nurse Triage Social History Tobacco Use Types [...] Telephone Encounter - Miri Valdivia RN - 09/07/2022 3:53 PM EDT Triage call with [employer] [place] [id number] Pt reports urinary symptoms of burning with urination, frequency, not emptying bladder, and low back pain. Pt reports was seen in ED a month ago and nobody called me . Pt is advised to come to [facility] today to be seen but , declines . Pt is given apt in [facility] for 900am 09/08/22. Pt agrees . Insurance is verified as active prior to booking. Protocol Used: Urinary Symptoms (Adult) Protocol-Based Disposition: See in Office or Video Visit Today Video visit not offered Positive Triage Questions: * Side (flank) or lower back pain present * Urinating more frequently than usual (i.e., frequency) * All higher-acuity triage questions were negative Care Advice Discussed: * Reasons To Call Back - Fever occurs - Pain or burning with urination - Unable to urinate and bladder feels full - You become worse * Telephone Encounter - Yelena Blackburn - 09/07/2022 3:23 PM EDT Symptom: Urination Pain Outcome: Schedule a same-day appointment or talk to a nurse or provider today Reason: Caller denied all higher acuity questions The caller accepted this outcome (Ethiopian speaker) documented in this encounter Plan of Treatment Upcoming Encounters Date Type Department Care Team (Late st Contact Info) Description 01/24/2025 11:00 AM EDT Office Visit [facility] MED [facility] PEDS [address] [place] [address] Kristin Todd MD [address] [place] [address] documented as of this encounter Visit Diagnoses Not on filedocumented in this encounter Additional Health Concerns Assessment Noted Time PHQ-9 Depression Total Score: 9 04/16/19 23 9:38 AM EST documented as of this encounter Care Teams Behavioral Health Technician Relationship Specialty Start Date End Date Kristin Todd MD [address] [place] [address] PCP - General Family Medicine 03/28/18 Fabby Molina 04/01/23 documented as of this encounter
--- OUTSIDE RECORDS SUMMARY | 2025-01-10 13:58 | XMS_ITS | Encounter Summary ---
Author Organization [employer] Address [address] [place] [address] 7 [place] [address] Care Team Providers Care Sericulturist Name Role Phone Kristin Todd MD Primary Care Provider [phone] Reason for Visit * Reason Comments Med Refill Encounter Details Date Type Department Care Team ([facility] Contact Info) Description 11/15/2023 Refill [facility] CH[facility] MED & PEDS [address] [place] [address] Kristin Todd MD [address] [place] [address] Nausea and vomiting, unspecified vomiting type Social [...] Upcoming Encounters Date Type Department Care Team ([facility] st Contact Info) Description 01/24/2025 11:00 AM EDT Office Visit [facility] MED [facility] PEDS [address] [place] [address] Kristin Todd MD [address] [place] [address] documented as of this encounter Visit Diagnoses Diagnosis Nausea and vomiting, unspecified vomiting type documented in this encounter Additional Health Concerns Assessment Noted Time PHQ-9 Depression Total Score: 5 10/20/19 24 11:56 AM EDT documented as of this encounter Care Teams Sericulturist Relationship Specialty Start Date End Date Kristin Todd MD [address] [place] [address] PCP - General Family Medicine 03/28/18 Fabby Molina 04/01/23 documented as of this encounter
--- OUTSIDE RECORDS SUMMARY | 2025-01-10 13:58 | XMS_ITS | Encounter Summary ---
Author Organization [email or web address] Address [address] [facility] [address] [place] [address] Care Team Providers Care Lead Software Tester Name Role Phone Kristin Todd MD Primary Care Provider [phone] Encounter Details Date Type Department Care Team ([facility] st Contact Info) Description 04/05/2023 Orders Only [facility] CHC MED & PEDS [address] [place], [place] [phone] Kristin Todd MD [address] [place], [place] [phone] Social History Tobacco Use Types Packs/Day Years [...] Description 01/24/2025 11:00 AM EDT Office Visit [facility] MED & PEDS [address] [place] [address] Kristin Todd MD [address] [place] [address] documented as of this encounter Visit Diagnoses Not on filedocumented in this encounter Additional Health Concerns Assessment Noted Time PHQ-9 Depression Total Score: 9 04/16/19 23 9:38 AM EST documented as of this encounter Care Teams Lead Software Tester Relationship Specialty Start Date End Date Kristin Todd MD [address] [place] [address] PCP - General Family Medicine 03/28/18 Fabby Molina 04/01/23 documented as of this encounter
== END 2025-01-10 11:28 | disposition home or self-care (01) ==
LOC: HO.HUSH 10:59
PROVIDERS: PCP Pediatrics; Visit Provider Urology
DX: Z93.59 Other cystostomy status (principal)
CPT/HCPCS: 51705; 99213

== ENCOUNTER → 2025-01-10 10:58 | Outpatient (BNVA) | payer MEDICAID, SELFPAY | PROVIDERS: PCP Pediatrics; Visit Provider Urology | DX: Z43.5 Encounter for attention to cystostomy (principal); N31.9 Neuromuscular dysfunction of bladder, unspecified | CPT/HCPCS: 51705; 99212 ==

== ENCOUNTER 2025-02-07 14:04 | Outpatient (REF) | payer MEDICAID, SELFPAY ==
--- OUTSIDE RECORDS SUMMARY | 2025-02-07 18:00 | XMS_ITS | Clinical Summary ---
Author Organization [facility] Address [address] [address] Phone Care Team Providers Care Enrollment Consultant Name Role Phone Kristin Todd MD Primary [...] 02/23/2023 Schizophrenia 02/23/2023 02/23/2023 Main spoken language Guyanese 02/23/2023 Type 2 diabetes mellitus 02/23/2023 023 [...] Insurance Medicaid [place] Care Teams Enrollment Consultant Relationship Specialty Start Date End Date Kristin Todd MD [address] PCP - General Internal Medicine 02/23/23
== END 2025-02-07 14:05 | disposition home or self-care (01) ==
LOC: HO.LAB 14:04
PROVIDERS: PCP Pediatrics; Visit Provider Urology
DX: N39.0 Urinary tract infection, site not specified (principal); T83.511A Infection and inflammatory reaction due to indwelling urethral catheter, initial encounter
CPT/HCPCS: 51705; 87086

== ENCOUNTER → 2025-03-07 13:31 | Outpatient (BNVA) | payer MEDICAID, SELFPAY | PROVIDERS: PCP Pediatrics; Visit Provider Urology | DX: N31.9 Neuromuscular dysfunction of bladder, unspecified (principal) | CPT/HCPCS: 51705 ==